=== PATIENT | female | born 1970 | race Caucasian/White ===

== ENCOUNTER 2017-08-12 09:56 | Emergency (ER) | payer BC ==
[2017-08-12 11:29] LABS: #Basophils 0.1 thou/uL (0.0-0.2); #Eosinphils 0.5 thou/uL (0.0-0.7); #Lymphocytes 4.3 thou/uL (1.20-3.40); #Monocytes 1.5 thou/uL (0.11-0.59); #Neutrophils 13.3 thou/uL (1.40-6.50); %Basophils 0.7 % (0.0-1.0); %Eosinophils 2.7 % (0.0-10.0); %Lymphocytes 21.9 % (21.0-51.0); %Monocytes 7.4 % (0.0-10.0); Hematocrit 46.2 % (36.0-47.0); Mean Platelet Volume 7.1 fL (7.4-10.4); White Blood Cell (WBC) Count 19.7 thou/uL (4.8-10.8)
[2017-08-12 11:49] LABS: ALT (SGPT) 13 U/L (8-55); AST (SGOT) 16 U/L (5-34); Alkaline Phosphatase 71 U/L (40-150); Anion Gap 13 mmol/L (10-20); BUN (Urea Nitrogen) 15 mg/dL (7.0-18.7); Bilirubin, Total 0.2 mg/dL (0.2-1.2); Calc. Creatinine Clearance 0 mL/min (70-130); Calcium 9.7 mg/dL (7.8-10.44); Carbon Dioxide 23 mmol/L (22-29); Chloride 104 mmol/L (98-107); Estimated GFR-MDRD Greater than 90; Globulin 3.8 g/dL (2.4-3.5); Protein, Total 7.6 g/dL (6.0-8.3)
[2017-08-12 11:51] LABS: Bilirubin Negative (Negative); Blood, Urine Negative (Negative); Glucose, Urine (Dipstick) Negative (Negative); Ketone, Urine Negative (Negative); Nitrite Negative (Negative); Protein, Urine (Dipstick) Negative (Neg-Trace); Urobilinogen 0.2 mg/dL (0.2-1.0)
[2017-08-12] MEDS ORDERED: Ondansetron HCl/PF 4 MG/2 ML Vial ONE (12:00)
[2017-08-12] MEDS ORDERED: Fentanyl 100 MCG/2 ML VIAL ONE (12:00)
[2017-08-12] MEDS ORDERED: diphenhydrAMINE HCl 50 MG/ML 1 ML VIAL ONE (12:18)
--- NOTE | 2017-08-12 13:03 | CT ---
CT OF THE ABDOMEN AND PELVIS WITH IV CONTRAST: Date: 08/12/17 INDICATION: Abdominal pain and pelvic pain. FINDINGS: There is some subsegmental atelectasis within the right middle lobe. There is mild fatty infiltration of the liver. The pancreas, spleen, and adrenal glands are normal appearing. The kidneys are normal appearing. No free fluid or enlarged lymph nodes are evident. There is a mild amount of retained stool within the colon. There is a mild to moderate amount of eleazar e fluid in the pelvis. There is scattered diverticula involving the colon without evidence of active diverticulitis. The visualized bladder is unremarkable. There is scattered degenerative and osteoarthritic change. There is diffuse osteopenia. No definite acute osseous abnormality is evident. IMPRESSION: 1. Nonspecific mild to moderate free fluid within the pelvis. 2. Colonic diverticulosis without evidence of active diverticulitis. 3. Fatty infiltration of the liver. POS: [facility]
[2017-08-12] MEDS ORDERED: ISOVUE-370 76%-LOCM 1 ML ONE (14:17)
[2017-08-12] MEDS ORDERED: Ketorolac Tromethamine 30 MG/ML VIAL ONE (14:19)
== END 2017-08-12 14:35 | disposition home or self-care (01) ==
LOC: ERS 09:56
DX: D72.829 Elevated white blood cell count, unspecified (principal); J44.9 Chronic obstructive pulmonary disease, unspecified; F41.9 Anxiety disorder, unspecified; F32.9 Major depressive disorder, single episode, unspecified; F17.210 Nicotine dependence, cigarettes, uncomplicated
CPT/HCPCS: 36415; 74177; 80053; 81003; 85025; 96361; 96374; 96375; J1170; J1200; J1885; J2405; J3010

== ENCOUNTER 2017-09-02 15:58 | Emergency (ER) | payer BC, OTHER ==
[2017-09-02] MEDS ORDERED: Lorazepam 2 MG/ML VIAL ONE ×2 (16:31→16:40)
[2017-09-02 16:34] LABS: Oxyhemoglobin 92.4 % (94.0-97.0); Sodium 143 mmol/L (135-148)
[2017-09-02 16:39] LABS: Modified Allen's Test POSITIVE; Vent NO
[2017-09-02 16:40] LABS: Mode NC
[2017-09-02 17:18] LABS: #Basophils 0.1 thou/uL (0.0-0.2); #Eosinphils 0.6 thou/uL (0.0-0.7); #Lymphocytes 4.7 thou/uL (1.20-3.40); #Monocytes 1.2 thou/uL (0.11-0.59); #Neutrophils 4.7 thou/uL (1.40-6.50); %Basophils 1.1 % (0.0-1.0); %Eosinophils 5.5 % (0.0-10.0); %Lymphocytes 41.4 % (21.0-51.0); %Monocytes 10.6 % (0.0-10.0); Red Blood Cell (RBC) Count 5.26 mill/uL (4.20-5.40); White Blood Cell (WBC) Count 11.4 thou/uL (4.8-10.8)
[2017-09-02 17:46] LABS: ALT (SGPT) 11 U/L (8-55); AST (SGOT) 17 U/L (5-34); Alkaline Phosphatase 78 U/L (40-150); Anion Gap 13 mmol/L (10-20); BUN (Urea Nitrogen) 15 mg/dL (7.0-18.7); Bilirubin, Total 0.7 mg/dL (0.2-1.2); Calc. Creatinine Clearance 0 mL/min (70-130); Calcium 9.6 mg/dL (7.8-10.44); Carbon Dioxide 26 mmol/L (22-29); Chloride 104 mmol/L (98-107); Estimated GFR-MDRD 85; Protein, Total 8.1 g/dL (6.0-8.3)
[2017-09-02 17:47] LABS: Acetaminophen Less than 6.0 mcg/mL (10.0-30.0); Salicylate Less than 8.0 mg/dL (15.0-30.0)
[2017-09-02 19:22] LABS: Bilirubin Negative (Negative); Blood, Urine Negative (Negative); Glucose, Urine (Dipstick) Negative (Negative); Ketone, Urine Negative (Negative); Nitrite Negative (Negative); Protein, Urine (Dipstick) Negative (Neg-Trace); Urobilinogen 0.2 mg/dL (0.2-1.0)
[2017-09-02 19:36] LABS: Amphetamine Not Detected (NotDetected); Methadone Not Detected (NotDetected); Methamphetamine Not Detected (NotDetected)
--- NOTE | 2017-09-02 20:12 | RAD ---
PORTABLE CHEST ONE VIEW: 09/02/17 at 5:46 p.m. HISTORY: Shortness of breath and dyspnea. FINDINGS: Comparison made with the exam of 07/07/17. The heart size is normal. The lungs are expanded without focal areas of consolidation, pneumothorax, vivian pulmonary edema or pleural effusions. IMPRESSION: No radiographic evidence of acute cardiopulmonary process. POS: [facility]
[2017-09-02] MEDS ORDERED: methylPREDNISolone Sod Succ/PF 125 MG/2 ML VIAL ONE (21:49)
== END 2017-09-02 22:15 | disposition home or self-care (01) ==
LOC: ERS 15:58
DX: J38.3 Other diseases of vocal cords (principal); F43.9 Reaction to severe stress, unspecified; R07.9 Chest pain, unspecified; J44.9 Chronic obstructive pulmonary disease, unspecified; F32.9 Major depressive disorder, single episode, unspecified; F41.9 Anxiety disorder, unspecified; F17.210 Nicotine dependence, cigarettes, uncomplicated; Z79.899 Other long term (current) drug therapy
CPT/HCPCS: 71010; 80053; 80306; 80307; 81003; 82805; 84443; 85025; 93005; 94640; 96361; 96374; 96375; J2060; J2930

== ENCOUNTER 2017-09-07 03:31 | Inpatient (IN) | payer BC ==
[2017-09-07 03:55] LABS: #Basophils 0.1 thou/uL (0.0-0.2); #Eosinphils 0.1 thou/uL (0.0-0.7); #Lymphocytes 4.2 thou/uL (1.20-3.40); #Monocytes 0.9 thou/uL (0.11-0.59); #Neutrophils 8.1 thou/uL (1.40-6.50); %Basophils 0.9 % (0.0-1.0); %Eosinophils 0.9 % (0.0-10.0); %Monocytes 6.7 % (0.0-10.0); Mean Platelet Volume 7.4 fL (7.4-10.4); Red Blood Cell (RBC) Count 4.83 mill/uL (4.20-5.40); White Blood Cell (WBC) Count 13.4 thou/uL (4.8-10.8)
[2017-09-07 04:09] LABS: Lactic Acid - Sepsis 0.8 mmol/L (0.5-2.2)
[2017-09-07 04:15] LABS: ALT (SGPT) 24 U/L (8-55); AST (SGOT) 29 U/L (5-34); Alkaline Phosphatase 73 U/L (40-150); Anion Gap 11 mmol/L (10-20); BUN (Urea Nitrogen) 20 mg/dL (7.0-18.7); Bilirubin, Total 0.3 mg/dL (0.2-1.2); Calc. Creatinine Clearance 0 mL/min (70-130); Calcium 9.1 mg/dL (7.8-10.44); Carbon Dioxide 26 mmol/L (22-29); Chloride 104 mmol/L (98-107); Estimated GFR-MDRD 81; Globulin 3.4 g/dL (2.4-3.5); Magnesium 1.9 mg/dL (1.6-2.6); Protein, Total 7.3 g/dL (6.0-8.3)
[2017-09-07 04:18] LABS: Troponin I Less than 0.010 ng/mL (< 0.028)
[2017-09-07] MEDS ORDERED: Acetaminophen 325 MG Suppository PR PRN (04:28)
[2017-09-07] MEDS ORDERED: Milk Of Magnesia 30 ML UDCUP PO PRN (04:28)
[2017-09-07] MEDS ORDERED: CCU Electrolyte Replacement 1 EACH IVPB ONE (04:28)
[2017-09-07] MEDS ORDERED: Acetaminophen 325 MG/10.15 ML UDCUP PO PRN (04:28)
[2017-09-07] MEDS ORDERED: Bisacodyl 10 MG SUPP PR PRN (04:28)
[2017-09-07] MEDS ORDERED: Ondansetron HCl/PF 4 MG/2 ML Vial IVP PRN (04:28)
[2017-09-07] MEDS ORDERED: Sedation Protocol FS ONE (04:28)
[2017-09-07] MEDS ORDERED: Lacri-Lube Opth Oint 3.5 GM TUBE EA EYE PRN (04:28)
[2017-09-07] MEDS ORDERED: Mag-Al 1200 mg/1200 mg/30 ML UDCUP PO PRN (04:28)
[2017-09-07] MEDS ORDERED: Potassium Phosphate 9 MMOL in Sodium Chloride 0.9% 100 ML IVPB PRN (04:38)
[2017-09-07] MEDS ORDERED: Potassium Phosphate 12 MMOL in Sodium Chloride 0.9% 250 ML 250 ML IV PRN (04:38)
[2017-09-07] MEDS ORDERED: CCU ELECTROLYTE REPLACEMENT PROTOCOL FS PRN (04:38)
[2017-09-07] MEDS ORDERED: Potassium Phosphate 15 MMOL in Sodium Chloride 0.9% 250 ML 250 ML IV PRN (04:38)
[2017-09-07] MEDS ORDERED: Potassium Chloride 20 MEQ TAB PO PRN (04:38)
[2017-09-07] MEDS ORDERED: Potassium Chloride 40 MEQ in Sodium Chloride 0.9% 250 ML 250 ML IVPB PRN (04:38)
[2017-09-07] MEDS ORDERED: DISCONTINUE PREVIOUS NARCOTIC PAIN MEDICATIONS AND BENZODIAZEPINES FS SCH (04:38)
[2017-09-07] MEDS ORDERED: Magnesium 2 GM/NS 0.9% 100 ML 2 GM in Premix Bag 1 BAG IVPB PRN (04:38)
[2017-09-07] MEDS ORDERED: Propofol 1,000 MG/100 ML VIAL IV PRN (04:38)
[2017-09-07] MEDS ORDERED: Magnesium Oxide 400 MG TAB PO PRN ×2 (04:38)
[2017-09-07] MEDS ORDERED: Fentanyl 20 MCG/ML 250 ML IVPB SCH (04:38)
[2017-09-07] MEDS ORDERED: Lorazepam 2 MG/ML VIAL SLOW IVP PRN (04:38)
[2017-09-07] MEDS ORDERED: Potassium Chloride 40 MEQ in Premix Bag 1 BAG IVPB PRN (04:38)
[2017-09-07] MEDS ORDERED: methylPREDNISolone Sod Succ/PF 125 MG/2 ML VIAL ONE (04:45)
[2017-09-07] MEDS ORDERED: Water For Inject, Bacteriostat 30 ML ONE (04:45)
[2017-09-07] MEDS ORDERED: Fentanyl 20 MCG/ML 250 ML ONE (04:51)
[2017-09-07 05:07] LABS: Oxyhemoglobin 96.8 % (94.0-97.0); Sodium 138 mmol/L (135-148)
[2017-09-07 05:08] LABS: Mechanical Tidal Volume 400 ml; Mode VC; Modified Allen's Test POSITIVE; Vent YES
--- NOTE | 2017-09-07 05:53 | HP ---
DATE OF ADMISSION: 09/07/2017 PRIMARY CARE PHYSICIAN: Dr. Hurst. PRIMARY TEST AND TURN UP TECHNICIAN: Dr. Grey. CHIEF COMPLAINT: Acute respiratory failure and unresponsiveness. HISTORY OF PRESENT ILLNESS: Ms. Rodriguez is a 47-year-old female with past medical history of vocal cord paralysis and COPD with questionable psychogenic dyspnea with multiple hospitalizations requiri ng intubations for the same reason, who was brought in with the above-mentioned complaints. History is mainly obtained by discussion with the ER physician and by her at the bedside. The jelly ent is currently intubated and agitated and is unable to provide any history. She was last admitted to our facility in 05/2017 for complaints of dyspnea and was admitted and treated for acute COPD ex acerbation. 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 She was found slumped on the floor by a hotel staff and 911 was called. The patient was found rather unresponsive by the EMS and got promptly intubated with ketamine and paralytics. She was brought into the emergency jayna m. Her initial workup showed mild leukocytosis with WBCs at 13.4. Her D-dimer is negative and rest of her serum chemistries are unremarkable. Chest x-ray does not show any infiltrate or edema. A p reliminary diagnosis of COPD exacerbation has been made and she is being admitted to CCU in an intub ated state. Please note that the patient has had multiple hospitalizations with the same diagnosis. PAST MEDICAL HISTORY: 1. Asthma/COPD. 2. History of left upper lobe cavitary lesion with outpatient CT scan followups. 3. History of vocal cord dysfunction. 4. Anxiety. 5. Tobacco abuse. 6. Fibromyalgia. 7. Restless leg syndrome. PSYCHIATRIC HISTORY: Anxiety, depression, panic disorder. PAST SURGICAL HISTORY: Appendectomy, hysterectomy, tonsillectomy, ulnar nerve surgery, neck surgery . ALLERGIES: PENICILLIN, LEVAQUIN, HALDOL, DOXYCYCLINE. SOCIAL HISTORY: Currently , her is at the bedside. 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 She has had multiple jobs in the past. She smokes half to 1 pack of cigar ettes on a daily basis. No history of drug or alcohol abuse. There is some question of her signifi cant bleach to induce wheezing in order to get hospitalized. There is nothing to corroborate or rev iew this. FAMILY HISTORY: No significant family history of premature coronary artery disease, stroke or cance r. CURRENT MEDICATIONS: As per the most recent ER record, she is on following medications, but these n eed to be further corroborated with the patient. 1. Pramipexole 0.5 mg 4 tablets at bedtime. 2. Olanzapine 5 mg daily. 3. Estradiol 2 mg daily. 4. Mirtazapine 15 mg daily. 5. Clonazepam 1 mg unknown dosage. 6. Montelukast 10 mg daily. 7. Duloxetine 60 mg once a day. REVIEW OF SYSTEM: It is unobtainable due to patient's intubation and agitated state. LABORATORY DATA: CBC shows WBCs 13.4, hemoglobin 14.6, neutrophils 60%, platelets 288. D-dimer les s than 0.27. Serum chemistry is unremarkable. Blood sugar 143, lactic acid 0.8. Cardiac enzymes n ormal. Beta-hCG 1.65. Chest x-ray by my review, has no evidence of effusion, edema, or infiltrate. CT scan of the brain is unremarkable for any acute hemorrhage or infarction per my review. CT sca n of the cervical spine results are pending at this time. PHYSICAL EXAMINATION: VITAL SIGNS: Stable. She is afebrile, saturating 100% on ventilator. Heart rate is in the 80s, bl ood pressure 140/60. GENERAL: She is very agitated and moving all around and biting tube as she is off of sedation at th is time. She opens her eyes on verbal stimulation. Otherwise, does not follow any commands. HEENT: Mucous membrane is moist and pink. No oropharyngeal exudate or erythema. Head is normoceph alic, atraumatic. Pupils equal, reactive to light. CHEST: Clear to auscultation without any wheezing, rales, or rhonchi. Rate and rhythm is regular w ithout any murmur, rubs, or gallops. ABDOMEN: Soft, nontender, nondistended. Positive bowel sounds. EXTREMITIES: Free of any cyanosis, clubbing, or edema. NEUROLOGIC: Shows agitation and she is moving all 4 extremities freely. Otherwise, limited examina tion due to agitation and intubated state. VASCULAR: +2 pedal pulses felt bilaterally. IMPRESSION AND PLAN: 1. Acute respiratory failure. This is likely secondary to acute chronic obstructive pulmonary dise ase/asthma exacerbation given her history of vocal cord paralysis. At this time, she will be admitt ed to the critical care unit on ventilator. We will consult Pulmonary medicine in the morning and c ontinue with intravenous steroids, nebulizers, oxygen, and ventilator support for now. Symptomatic and supportive care will be provided. Ventilator weaning as per Pulmonary doctors. We will also ad d Dulera and Mucinex in the liquid form. We will sedate her for now as she is at risk of self-extub ation. She will be monitored in the CCU 2. History of asthma and chronic obstructive pulmonary disease as above. Continue nebs and steroid s and add Dulera. 3. Leukocytosis, likely stress induced. No signs and symptoms to suggest infection. We will mary nue to monitor. 4. Fibromyalgia. 5. Chronic tobacco abuse disorder. 6. Restless leg syndrome. 7. Deep venous thrombosis and gastrointestinal prophylaxis. 8. Code status: Presumed FULL CODE as the patient is already intubated. is the surrogate decision maker. DISPOSITION: Based on the clinical course. She was stay at least 2-3 midnights. Further managemen t will depend upon her clinical course.
[2017-09-07 06:46] LABS: Bilirubin Negative (Negative); Blood, Urine Negative (Negative); Glucose, Urine (Dipstick) Negative (Negative); Ketone, Urine Negative (Negative); Nitrite Negative (Negative); Protein, Urine (Dipstick) Trace mg/dL (Neg-Trace); Urobilinogen 0.2 mg/dL (0.2-1.0)
[2017-09-07] MEDS: Famotidine/PF 20 mg/2ml Vial SLOW IVP SCH ×2 (08:44→20:04)
[2017-09-07 08:50] LABS: Sodium 140 mmol/L (135-148)
[2017-09-07 08:51] LABS: Mechanical Tidal Volume 400 ml; Mode SIMV/PSV; Modified Allen's Test NOT DONE; Pressure Support 10 cmH2O; Vent YES
--- NOTE | 2017-09-07 09:36 | RAD ---
CHEST 1 VIEW: HISTORY: Wheezing. Calmed down. Intubated. COMPARISON: Chest 1 view 09/02/17. FINDINGS: Endotracheal tube tip in good position at the level of the clavicles. Lungs are relatively well aer ated. ACDF is present. Cardiac silhouette and mediastinal contours within normal limits. IMPRESSION: Endotracheal tube tip at the level of the clavicles. POS: [facility]
[2017-09-07] MEDS ORDERED: DC Sedation Protocol FS ONE (10:44)
--- NOTE | 2017-09-07 11:11 | CT ---
PRELIMINARY REPORT/[facility]/EMERGENCY AFTER HOURS PROCEDURE: EXAM: CT Cervical Spine Without Intravenous Contrast EXAM DATE/TIME: Exam ordered 09/07/2017 4:30 AM CLINICAL HISTORY: 47 years old, female; Injury or trauma; Injury Possible fall; Initial encounter; Unconscious; Patien t HX: F47 presents to ed S/P unresponsive and intubated. Ems reports pt was unresponsive and on the ground when they arrived. Pt's coworker said that pt reported she was having trouble breathing. Pt' s coworker reports since pt had neck surgery a few years ago she has had similar events where her vo tim cords close up. Ems reports labored breathing and blood sugar of 90. 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 TECHNIQUE: Axial computed tomography images of the cervical spine without intravenous contrast. Coronal reformatted images were created and reviewed. COMPARISON: No relevant prior studies available. FINDINGS: Vertebrae: No fracture. Discs/spinal canal/neural foramina: Anterior fusion hardware spanning C5-C7. No spinal canal stenosi s. Soft tissues: Unremarkable. Lung apices: Unremarkable as visualized. IMPRESSION: No fracture. Thank you for allowing us to participate in the care of your patient. Dictated and Authenticated by: Justo Hernandez MD 09/07/2017 4:52 AM Central Time ([place] \T\ [place]) FINAL REPORT CT CERVICAL SPINE WITHOUT CONTRAST: HISTORY: Found down. Intubated. FINDINGS/IMPRESSION: Findings and impression are concordant with the preliminary report. POS: [facility]
--- NOTE | 2017-09-07 11:12 | CT ---
PRELIMINARY REPORT/[facility]/EMERGENCY AFTER HOURS PROCEDURE: EXAM: CT Head Without Intravenous Contrast EXAM DATE/TIME: Exam ordered 09/07/2017 4:32 AM CLINICAL HISTORY: 47 years old, female; Signs and symptoms; Altered mental status/memory loss and other: Unresposive; Confusion or disorientation; Patient HX: F47 presents to ed S/P unresponsive and intubated. Ems repo rts pt was unresponsive and on the ground when they arrived. Pt's coworker said that pt reported she was having trouble breathing. Pt's coworker reports since pt had neck surgery a few years ago she has had similar events where her vocal cords close up. Ems reports labored breath ing and blood sugar of 90. 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 TECHNIQUE: Axial computed tomography images of the head/brain without intravenous contrast. COMPARISON: No relevant prior studies available. FINDINGS: Brain: Unremarkable. No hemorrhage. No significant white matter disease. No edema. Ventricles: Unremarkable. No ventriculomegaly. Bones/joints: Unremarkable. No acute fracture. Soft tissues: Unremarkable. Sinuses: Partial opacification of the right maxillary sinus with mucosal thickening, bubbly secretio ns, and dependent fluid level, compatible with sinusitis. Mastoid air cells: Unremarkable as visualized. No mastoid effusion. IMPRESSION: 1. Right maxillary sinusitis. 2. No acute brain findings. Thank you for allowing us to participate in the care of your patient. Dictated and Authenticated by: Justo Hernandez MD 09/07/2017 4:50 AM Central Time ([place] \T\ [place]) FINAL REPORT CT BRAIN WITHOUT CONTRAST: History Found down, intubated. Trouble breathing. COMPARISON: CT brain 02/20/17. FINDINGS/IMPRESSION: Findings and impression are concordant with the preliminary report. POS: [facility]
--- NOTE | 2017-09-07 11:23 | PDOC.PN ---
- Subjective Encounter Start Date: 09/07/17 Encounter Start Time: 11:00 Subjective: Feels tired..s/p extubation. - Objective Vital Signs & Weight: Vital Signs (12 hours) Temp Pulse Resp BP Pulse Ox 09/07/17 11:12 100 09/07/17 11:11 68 17 100 09/07/17 10:40 67 17 100 09/07/17 10:00 20 09/07/17 08:00 97.9 F 20 09/07/17 07:54 97.9 F 67 20 100 09/07/17 07:35 67 20 100 09/07/17 06:11 72 88/50 L 94 L 09/07/17 06:00 20 Most Recent Monitor Data Heart Rate from ECG 68 NIBP 101/56 NIBP BP-Mean 72 Respiration from ECG 15 SpO2 100 I&O: 09/06/17 09/07/17 09/08/17 06:59 06:59 06:59 Output Total 330 90 Balance -330 -90 Result Diagrams: 09/07/17 03:34 09/07/17 03:34 Phys Exam - Physical Examination HEENT: sclera anicteric Neck: no JVD Respiratory: clear to auscultation bilateral Cardiovascular: RRR Gastrointestinal: soft, non-tender Musculoskeletal: no edema Neurological: moves all 4 limbs Dx/Plan (1) Respiratory failure Code(s): J96.90 - RESPIRATORY FAILURE, UNSP, UNSP W HYPOXIA OR HYPERCAPNIA Status: Acute Plan: s/p extubation Comment: f/u with pulmonary.. (2) Vocal cord dysfunction Code(s): J38.3 - OTHER DISEASES OF VOCAL CORDS Status: Acute Comment: by history.. - Plan -: Transfer to medical floor when ok with civil drafter. * .
--- NOTE | 2017-09-07 14:50 | CON ---
DATE OF SERVICE: 09/07/2017 SUBJECTIVE: A 47-year-old female was intubated in the field. I spoke to the who is at the bedside. He states that the patient was at work, when his sister found in the room unresponsive. P aramedics were called and she was intubated. She has had multiple intubations 7 times as per the . She sees Dr. Grey in her office for pulmonary issues, apparently just seen recently in April. She carries diagnoses of; 1. Ongoing tobacco abuse. 2. Asthma, chronic obstructive pulmonary disease. 3. Vocal cord dysfunction. 4. Fibromyalgia. 5. Restless leg syndrome. PREVIOUS SURGERIES: Include hysterectomy, tonsils, ulnar nerve and neck surgery. MEDICATIONS: Her list of medicines was well outlined, which has included clonazepam 1 mg, Cymbalta 60, melatonin 5, Vivarin 200, estradiol 2, mirtazapine 15, pramipexole 0.5 four tablets at nighttime , Proventil inhaler, Singulair and olanzapine 5 mg at bedtime. ALLERGIES: PENICILLIN, LEVAQUIN, HALDOL and DOXYCYCLINE. REVIEW OF SYSTEMS: Unremarkable. OBJECTIVE: GENERAL: On the vent, she is awake, alert and responsive. VITAL SIGNS: Sats are 98%, pulse 73, respirations 18 and blood pressure 120/80. CHEST: Occasional wheeze. CARDIAC: Normal S1 and S2. No gallops. ABDOMEN: Soft. No masses. LABORATORY DATA: X-ray was normal. White count 13,000, hemoglobin and hematocrit 14 and 45, platel et count is 288. PO2 is 59, pCO2 47.33, rate of 20, 40%. Electrolytes are normal. IMPRESSION: 1. Status post respiratory failure with multiple intubations, at least 7. 2. Vocal cord dysfunction. 3. Chronic obstructive pulmonary disease. 4. Tobacco abuse. 5. Major anxiety. 6. Restless leg syndrome. 7. Fibromyalgia. 8. Neck surgery. PLAN: She will be weaned and extubated slowly. It was told to her and her that she needs t o refrain from smoking. I will notify Dr. Grey on Saturday. Observe in the ICU. Forty-Five minutes critical care time.
[2017-09-07] MEDS: Pramipexole Di-HCl 1 MG TAB PO SCH (20:04)
[2017-09-07] MEDS: clonazePAM 1 MG TAB PO SCH (20:04)
[2017-09-08 04:59] LABS: Anion Gap 11 mmol/L (10-20); BUN (Urea Nitrogen) 13 mg/dL (7.0-18.7); Calc. Creatinine Clearance 105 mL/min (70-130); Calcium 9.4 mg/dL (7.8-10.44); Carbon Dioxide 29 mmol/L (22-29); Chloride 102 mmol/L (98-107); Estimated GFR-MDRD Greater than 90
[2017-09-08 05:27] LABS: Band 4 % (5-11); Mean Platelet Volume 8.2 fL (7.4-10.4); Metamyelocyte 1 % (0-0); Neutrophil 83 % (42-75); Reactive Lymphocytes 2 % (0-10); Red Blood Cell (RBC) Count 4.13 mill/uL (4.20-5.40); White Blood Cell (WBC) Count 15.9 thou/uL (4.8-10.8)
[2017-09-08] MEDS: Famotidine/PF 20 mg/2ml Vial SLOW IVP SCH (08:39)
[2017-09-08] MEDS: clonazePAM 1 MG TAB PO SCH ×2 (08:39→20:12)
[2017-09-08] MEDS: Estradiol 1 MG TAB PO SCH (08:48)
--- NOTE | 2017-09-08 11:13 | PDOC.PN ---
- Subjective Encounter Start Date: 09/08/17 Encounter Start Time: 10:55 Subjective: No specific complaint. - Objective MAR Reviewed: Yes Vital Signs & Weight: Vital Signs (12 hours) Temp Pulse Resp BP Pulse Ox 09/08/17 09:45 97.7 F 86 18 105/64 96 09/08/17 08:00 98.3 F 09/08/17 07:52 98.3 F 78 18 96 09/08/17 07:00 98.3 F 09/08/17 06:28 100 09/08/17 06:26 70 16 100 09/08/17 03:00 98.8 F Weight Admit Weight 145 lb 8.08 oz Weight 144 lb 13.499 oz Most Recent Monitor Data Heart Rate from ECG 85 NIBP 107/64 NIBP BP-Mean 80 Respiration from ECG 22 SpO2 98 I&O: 09/07/17 09/08/17 09/09/17 06:59 06:59 06:59 Intake Total 1295 320 Output Total 330 1405 240 Balance -330 -110 80 Result Diagrams: 09/08/17 03:47 09/08/17 03:47 Phys Exam - Physical Examination Constitutional: NAD HEENT: sclera anicteric Neck: no JVD Respiratory: clear to auscultation bilateral Cardiovascular: RRR Gastrointestinal: soft, non-tender, no distention, positive bowel sounds Musculoskeletal: no edema Neurological: moves all 4 limbs Psychiatric: A&O x 3 (Flat affect..) Dx/Plan (1) Respiratory failure Code(s): J96.90 - RESPIRATORY FAILURE, UNSP, UNSP W HYPOXIA OR HYPERCAPNIA Status: Resolved Plan: Home tomorrow, per pulmonary (2) Vocal cord dysfunction Code(s): J38.3 - OTHER DISEASES OF VOCAL CORDS Status: Acute Comment: by history.. (3) Elevated blood sugar level Code(s): R73.9 - HYPERGLYCEMIA, UNSPECIFIED Status: Acute Comment: most likely due to steroids. (4) COPD (chronic obstructive pulmonary disease) Status: Acute (5) COPD exacerbation Code(s): J44.1 - CHRONIC OBSTRUCTIVE PULMONARY DISEASE W (ACUTE) EXACERBATION Status: Chronic - Plan -: Home tomorrow. * .
--- NOTE | 2017-09-08 17:21 | PRG ---
DATE OF SERVICE: 09/08/2017 SUBJECTIVE: This morning, awake, alert, responsive. She wants to leave the ICU. PHYSICAL EXAMINATION: VITAL SIGNS: Blood pressure 107/70, sats are 98%, respirations 18. CHEST: Minimal wheezing. CARDIAC: Normal S1, S2. No gallops. ABDOMEN: Soft. No masses. LABORATORY DATA: White count 15,000, H\T\H 12 and 39, platelet count normal. Electrolytes are norm al. IMPRESSION: Repeated multiple admissions with respiratory failure, vocal cord dysfunction, fibromya lgia, restless leg, tobacco abuse. PLAN: P.o. prednisone, transfer out of ICU, [place], supportive care. Home in the next 24-48 hours.
[2017-09-08] MEDS: Pramipexole Di-HCl 1 MG TAB PO SCH (20:13)
[2017-09-08] MEDS: Famotidine 20 MG TAB PO SCH (20:13)
[2017-09-09 05:07] LABS: Anion Gap 8 mmol/L (10-20); BUN (Urea Nitrogen) 19 mg/dL (7.0-18.7); Calc. Creatinine Clearance 101 mL/min (70-130); Calcium 8.9 mg/dL (7.8-10.44); Carbon Dioxide 32 mmol/L (22-29); Chloride 103 mmol/L (98-107); Estimated GFR-MDRD 88
[2017-09-09 05:16] LABS: Hematocrit 40.5 % (36.0-47.0); Mean Platelet Volume 7.9 fL (7.4-10.4); Neutrophil 51 % (42-75); Red Blood Cell (RBC) Count 4.29 mill/uL (4.20-5.40); White Blood Cell (WBC) Count 15.5 thou/uL (4.8-10.8)
[2017-09-09] MEDS: predniSONE 20 MG TAB PO SCH (08:20)
[2017-09-09] MEDS: Famotidine 20 MG TAB PO SCH ×2 (08:20→21:02)
[2017-09-09] MEDS: clonazePAM 1 MG TAB PO SCH ×2 (08:21→21:02)
[2017-09-09] MEDS: Estradiol 1 MG TAB PO SCH (08:21)
--- NOTE | 2017-09-09 09:12 | PRG ---
DATE OF SERVICE: 09/09/2017 SUBJECTIVE: She is breathing better. She still complains of weakness. OBJECTIVE: VITAL SIGNS: Temperature 97.9, pulse 87, respirations 16, O2 sat 94%, blood pressure 125/74. HEENT: Unremarkable. NECK: No JVD. LUNGS: She has diffuse bilateral expiratory wheezing. CARDIAC: S1 and S2 regular. ABDOMEN: Soft. EXTREMITIES: No edema. LABORATORY DATA: White blood cell count 15, hematocrit 40, platelet count 234. Sodium 139, potassi um 4.1, chloride 103, CO2 of 32, BUN 19, creatinine 0.7, glucose 83. ASSESSMENT: 1. Chronic obstructive pulmonary disease with exacerbation. 2. History of vocal cord dysfunction. 3. Status post acute respiratory failure. PLAN: It is always difficult to tell with Ms. Rodriguez in terms of what we are dealing with. At [facility], it seems like this is all due to chronic obstructive pulmonary disease and other times it seems that is due to vocal cord dysfunction. She definitely has expiratory wheezing right now, so I think she needs to continue nebulization treatments and steroids. Hopefully, she can go home in a day or two. She needs to continue follow up with psychiatry. I have told that she needs to quit smoking. She is in the process of applying for disability.
[2017-09-09] MEDS: Nicotine 21 MG PATCH TD SCH (11:37)
[2017-09-09] MEDS: Pramipexole Di-HCl 1 MG TAB PO SCH (21:02)
[2017-09-10 05:22] LABS: Anion Gap 11 mmol/L (10-20); BUN (Urea Nitrogen) 15 mg/dL (7.0-18.7); Calc. Creatinine Clearance 117 mL/min (70-130); Calcium 8.6 mg/dL (7.8-10.44); Carbon Dioxide 27 mmol/L (22-29); Chloride 103 mmol/L (98-107); Estimated GFR-MDRD Greater than 90
[2017-09-10 05:49] LABS: Hematocrit 42.2 % (36.0-47.0); Mean Platelet Volume 7.9 fL (7.4-10.4); Neutrophil 51 % (42-75); Reactive Lymphocytes 2 % (0-10); Red Blood Cell (RBC) Count 4.58 mill/uL (4.20-5.40); White Blood Cell (WBC) Count 16.2 thou/uL (4.8-10.8)
--- NOTE | 2017-09-10 08:44 | PRG ---
DATE OF SERVICE: 09/10/2017 Ms. Rodriguez remains tearful. She wants to discuss the same things over and over again. PHYSICAL EXAMINATION: VITAL SIGNS: Temperature is 97.3, pulse 80, respirations 16, 98%, blood pressure 97/61. HEENT: Unremarkable. NECK: No JVD. LUNGS: Expiratory wheezing bilaterally. CARDIOVASCULAR: S1 and S2 regular. ABDOMEN: Soft. EXTREMITIES: No edema. LABORATORY DATA: White blood cell count 16, hematocrit 42, platelet count 233. Sodium 137, potassi um 4.1, chloride 103, CO2 of 27, BUN 15, creatinine 0.6, glucose 81. ASSESSMENT: 1. Chronic obstructive pulmonary disease/asthma with exacerbation. 2. Vocal cord dysfunction. PLAN: 1. Repeat bedside PFT today. 2. Change back to IV steroids. 3. Discontinue daily labs. 4. The patient would greatly benefit from psychiatric consultation if available.
[2017-09-10] MEDS: Estradiol 1 MG TAB PO SCH (08:47)
[2017-09-10] MEDS: clonazePAM 1 MG TAB PO SCH ×2 (08:47→21:19)
[2017-09-10] MEDS: Famotidine 20 MG TAB PO SCH ×2 (08:47→21:25)
[2017-09-10] MEDS: predniSONE 20 MG TAB PO SCH (08:49)
--- NOTE | 2017-09-10 09:48 | PDOC.PN ---
- Subjective Encounter Start Date: 09/10/17 Encounter Start Time: 09:47 Subjective: feels better .able to walk out of the room. -: improved wheezing - Objective MAR Reviewed: Yes Vital Signs & Weight: Vital Signs (12 hours) Temp Pulse Resp BP Pulse Ox 09/10/17 06:48 98 09/10/17 06:47 80 16 98 09/10/17 01:39 96 09/10/17 00:00 97.3 F L 66 18 97/61 95 Weight Admit Weight 145 lb 8.08 oz Weight 154 lb 5.177 oz Most Recent Monitor Data Heart Rate from ECG 85 NIBP 107/64 NIBP BP-Mean 80 Respiration from ECG 22 SpO2 98 I&O: 09/09/17 09/10/17 09/11/17 06:59 06:59 06:59 Intake Total 810 Output Total 240 Balance 570 Result Diagrams: 09/10/17 03:27 09/10/17 03:27 Phys Exam - Physical Examination Constitutional: NAD HEENT: PERRLA, moist MMs, sclera anicteric, oral pharynx no lesions Neck: no nodes, no JVD, supple, full ROM Respiratory: no wheezing, no rales, no rhonchi, clear to auscultation bilateral Cardiovascular: RRR, no significant murmur, no rub, gallop Gastrointestinal: soft, non-tender, no distention, positive bowel sounds Musculoskeletal: no edema, pulses present Neurological: non-focal, normal sensation, moves all 4 limbs Psychiatric: normal affect, A&O x 3 Skin: no rash Dx/Plan (1) Acute on chronic respiratory failure with hypoxia Code(s): J96.21 - ACUTE AND CHRONIC RESPIRATORY FAILURE WITH HYPOXIA Status: Resolved (2) COPD (chronic obstructive pulmonary disease) Status: Acute Qualifiers: COPD type: COPD with acute exacerbation Qualified Code(s): J44.1 - Chronic obstructive pulmonary disease with (acute) exacerbation (3) Vocal cord dysfunction Code(s): J38.3 - OTHER DISEASES OF VOCAL CORDS Status: Acute Comment: by history.. (4) Anxiety and depression Code(s): F41.9 - ANXIETY DISORDER, UNSPECIFIED; F32.9 - MAJOR DEPRESSIVE DISORDER, SINGLE EPISODE, UNSPECIFIED Status: Chronic (5) Fibromyalgia Status: Chronic (6) Restless leg syndrome Status: Chronic (7) Tobacco dependence Code(s): F17.200 - NICOTINE DEPENDENCE, UNSPECIFIED, UNCOMPLICATED Status: Chronic - Plan respiratory therapy, incentive spirometry, out of bed/ambulate, DVT proph w/SCDs Back on IV steroids and [place] nebs.O2 prn.not hypoxic any more -: add nicotine patch. -: add stool softner. -: am labs. -: DC when cleared by PCCM.Appreciate input.hemodynamically stable * . Review of Systems - Review of Systems Constitutional: negative: Fever, Chills, Sweats, Weakness, Malaise, Other Respiratory: Cough. negative: Dry, Shortness of Breath, Hemoptysis, SOB with Excertion, Pleuritic Pain, Sputum, Wheezing Cardiovascular: negative: Chest Pain, Palpitations, Orthopnea, Paroxysmal Noc. Dyspnea, Edema, Light Headedness, Other Gastrointestinal: negative: Nausea, Vomiting, Abdominal Pain, Diarrhea, Constipation, Melena, Hematochezia, Other Genitourinary: negative: Dysuria, Frequency, Incontinence, Hematuria, Retention , Other Musculoskeletal: negative: Neck Pain, Shoulder Pain, Arm Pain, Back Pain, Hand Pain, Leg Pain, Foot Pain, Other Neurological: negative: Weakness, Numbness, Incoordination, Change in Speech, Confusion, Seizures, Other - Medications/Allergies Allergies/Adverse Reactions: Allergies Allergy/AdvReac Type Severity Reaction Status Date / Time Penicillins Allergy Intermediate Hives Verified 05/31/17 17:24 doxycycline Allergy Hives Verified 05/31/17 17:24 haloperidol [From Haldol] Allergy Verified 05/31/17 17:24 levofloxacin [From Levaquin] Allergy Hives Verified 05/31/17 17:24 loratadine [From Claritin] Allergy Rash Verified 05/31/17 17:24 penicillin G Allergy Verified 05/31/17 17:24 Medications: Current Medications Acetaminophen (Tylenol) 650 mg MT Q6H PRN PRN Reason: Fever > 101 or Mild Pain Acetaminophen (Tylenol Elixir) 650 mg PO Q6H PRN PRN Reason: Fever > 101 or Mild Pain Al Hydroxide/Mg Hydroxide (Maalox) 30 ml PO Q8H PRN PRN Reason: Indigestion Albuterol/Ipratropium (Duoneb) 3 ml NEB Q6H PRN PRN Reason: SOB &/or Wheezing Albuterol/Ipratropium (Duoneb) 3 ml NEB [id number]-KO [facility] Bisacodyl (Dulcolax) 10 mg MT DAILYPRN PRN PRN Reason: Constipation Clonazepam (Klonopin) 1 mg PO BID [facility] Last Admin: 09/10/17 08:47 Dose: 1 mg Duloxetine HCl (Cymbalta) 60 mg PO DAILY [facility] Last Admin: 09/10/17 08:47 Dose: 60 mg Estradiol (Estrace) 2 mg PO DAILY [facility] Last Admin: 09/10/17 08:47 Dose: 2 mg Famotidine (Pepcid) 20 mg PO BID [facility] Last Admin: 09/10/17 08:47 Dose: 20 mg Potassium Chloride 40 meq/ (Sodium Chloride) 270 mls @ 135 mls/hr IVPB ASDIR PRN PRN Reason: FOR SERUM K+ 2.5 - 3.5 Potassium Chloride 40 meq/ (Device) 100 mls @ 50 mls/hr IVPB ASDIR PRN PRN Reason: FOR SERUM K+ 2.5 - 3.5 Magnesium Sulfate 1 gm/ Sodium (Chloride) 102 mls @ 102 mls/hr IV PRN PRN PRN Reason: MAG LEVEL 1.4 - 2.0 Magnesium Sulfate 2 gm/ Device 100 mls @ 100 mls/hr IVPB ASDIR PRN PRN Reason: MAGNESIUM < 1.4 Potassium Phosphate 9 mmol/ (Sodium Chloride) 103 mls @ 25.75 mls/hr IVPB ASDIR PRN PRN Reason: Phosphate 1.0-1.8 Potassium Phosphate 12 mmol/ (Sodium Chloride) 254 mls @ 63.5 mls/hr IV ASDIR PRN PRN Reason: Serum phosphate 0.5-0.9 Potassium Phosphate 15 mmol/ (Sodium Chloride) 255 mls @ 63.75 mls/hr IV ASDIR PRN PRN Reason: Serum Phos < 0.5 Magnesium Hydroxide (Milk Of Magnesium) 30 ml PO Q8H PRN PRN Reason: Constipation Magnesium Oxide (Magnesium Oxide) 400 mg PO BIDPRN PRN PRN Reason: FOR SERUM MAG 1.4 - 2.0 Magnesium Oxide (Magnesium Oxide) 800 mg PO PRN PRN PRN Reason: FOR SERUM MAG < 1.4 Methylprednisolone Sodium Succinate (Solu-Medrol) 20 mg IVP Q6HR [facility] Mineral Oil/White Petrolatum (Lacri-Lube Ointment) 0 gm EA EYE PRN PRN PRN Reason: Dry Eyes Miscellaneous Medication (Phos-Nak) 1 pkt PO TIDPRN PRN PRN Reason: FOR PHOS LEVEL 1.0 - 1.8 Miscellaneous Medication (Phos-Nak) 2 pkt PO TIDPRN PRN PRN Reason: FOR PHOS LEVEL 0.5 - 1.0 Nicotine (Nicoderm Patch) 21 mg TD Q24HR [facility] Last Admin: 09/09/17 11:37 Dose: 21 mg Ccu Electrolyte (Replacement Protocol) 0 each FS PRN PRN PRN Reason: FOR ELECTROLYTE REPLACEMENT Ondansetron HCl (Zofran) 4 mg IVP Q6H PRN PRN Reason: Nausea/Vomiting Last Admin: 09/07/17 08:44 Dose: 4 mg Potassium Chloride (K-Dur) 40 meq PO ASDIR PRN PRN Reason: FOR SERUM K+ 2.5 - 3.5 Potassium Chloride (Klor-Con) 40 meq PER TUBE ASDIR PRN PRN Reason: FOR SERUM K+ 2.5-3.5 Pramipexole Dihydrochloride (Mirapex) 2 mg PO HS [facility] Last Admin: 09/09/17 21:02 Dose: 2 mg Sodium Chloride (Flush - Normal Saline) 10 ml IVF Q12HR [facility] Last Admin: 09/10/17 08:47 Dose: 10 ml Sodium Chloride (Flush - Normal Saline) 10 ml IVF PRN PRN PRN Reason: Saline Flush
[2017-09-10] MEDS: Nicotine 21 MG PATCH TD SCH (11:23)
[2017-09-10 13:38] VITALS: BMI 24.1
[2017-09-10] MEDS: Senokot S 8.6-50 MG TAB PO SCH (21:19)
[2017-09-10] MEDS: Pramipexole Di-HCl 1 MG TAB PO SCH (21:19)
[2017-09-11 08:20] VITALS: BP 129/72; TEMP 98.6
[2017-09-11] MEDS: Famotidine 20 MG TAB PO SCH (09:10)
[2017-09-11] MEDS: Estradiol 1 MG TAB PO SCH (09:10)
[2017-09-11] MEDS: clonazePAM 1 MG TAB PO SCH (09:10)
[2017-09-11] MEDS: Senokot S 8.6-50 MG TAB PO SCH (09:10)
[2017-09-11] MEDS: Nicotine 21 MG PATCH TD SCH (09:11)
--- NOTE | 2017-09-11 10:56 | PRG ---
DATE OF SERVICE: 09/11/2017 SUBJECTIVE: She is somewhat better. OBJECTIVE: VITAL SIGNS: On exam, temperature 98.6, pulse 80, respirations 20, O2 sats 96%, blood pressure 129/ 72. HEENT: Unremarkable. NECK: No JVD. LUNGS: Clear, as long as she is not trying to force out of breath. CARDIAC: S1 and S2 regular. ABDOMEN: Soft. EXTREMITIES: No edema. LABORATORY DATA: PFT Results: FEV1 of 1.83 liters, which is 65% predicted, FVC is 2.54 liters, whi ch is 69% predicted. Flow-volume loop indicates the patient had very poor effort for the test, but overall these numbers are decreased from previous PFTs. ASSESSMENT: 1. Chronic obstructive pulmonary disease with exacerbation. 2. Vocal cord dysfunction 3. Severe stress and anxiety. PLAN: I think that she is stable for discharge today. She should be tapered over all her steroids for about a week. She needs to quit smoking. She is scheduled to see me in the office in a few mon ths for followup CT scan for pulmonary nodule.
--- NOTE | 2017-09-11 12:21 | DIS ---
PRIMARY CARE PHYSICIAN: Dr. Melvina Copeland. DATE OF ADMISSION: 09/07/2017 DATE OF DISCHARGE: 09/11/2017 DISCHARGE DISPOSITION: Home. PRIMARY DISCHARGE DIAGNOSES: 1. Chronic obstructive pulmonary disease exacerbation. 2. Acute hypoxic respiratory failure, resolved. SECONDARY DISCHARGE DIAGNOSES: Chronic obstructive pulmonary disease/asthma, vocal cord paralysis, anxiety, depression, restless leg syndrome, tobacco abuse disorder, fibromyalgia. PRIMARY PROCEDURE/OPERATION: None. RADIOLOGICAL INVESTIGATION: CT brain, CT cervical spine, and chest x-ray. SIGNIFICANT LABS: WBC 16.2, platelets 233. D-dimer less than 0.27. BMP normal. LFTs normal. Uri nalysis normal. DISCHARGE MEDICATIONS: Cymbalta 60 mg p.o. daily, Estrace 2 mg p.o. daily, DuoNeb q.6 hourly and p .r.n., Dulera 2 puffs inhalation b.i.d., melatonin 2.5 mg p.o. at bedtime, Remeron l5 mg p.o. at bed time, Singulair 10 mg p.o. daily, Zyprexa 5 mg p.o. at bedtime, Mirapex 2 mg p.o. at bedtime, clonaz epam 1 mg b.i.d. p.r.n., prednisone 40 mg p.o. daily for 5 days, followed by 20 mg p.o. daily for 5 days, then 10 mg p.o. daily for 5 days. CONTRAINDICATIONS: None. CODE STATUS: FULL CODE. INPATIENT CONSULTANTS: Dr. Grey was following while in hospital. TEST RESULTS PENDING ON DISCHARGE: None. ALLERGIES: PENICILLIN, DOXYCYCLINE, HALOPERIDOL, LEVOFLOXACIN, PENICILLIN. DISCHARGE PLAN: Post hospital, the patient will follow up with Dr. Grey and primary care physici an as instructed. While in hospital, the patient is given instructions to avoid smoking. HOSPITAL COURSE: The patient is a 47-year-old female with above-mentioned medical problem who was a dmitted by Dr. Wasserman. Please see her H\T\P for further details. This patient has ongoing tobacco abuse disorder as well as vocal cord dysfunction. This patient was admitted for acute respiratory failure. She required intubation and mechanical ventilatory support. Pulmonary group was managing ventilator and subsequently the patient was extubated and transferred to the medical floor. The pat ient was receiving respiratory therapy with DuoNeb and steroid. On discharge we changed to tapering doses of prednisone as well as we also prescribed Dulera. The rest of medication was continued as per home medication. This patient's respiratory failure completely resolved. The patient is seen and examined at bedside today. Review of systems are negative for her. PHYSICAL EXAMINATION: VITAL SIGNS: Currently, temperature 98.6, pulse 88, respiratory rate 20, saturation 98%, blood pres sure 129/72, weight 154 pounds. GENERAL: The patient is currently alert, awake, no acute distress. HEAD: Normocephalic, atraumatic. LUNGS: Clear. CARDIAC: S1, S2 regular without any murmur. ABDOMEN: Soft and benign. EXTREMITIES: No edema. NEUROLOGIC: Nonfocal examination. The patient is ambulatory and she is on room air. Pulmonary cleared her for discharge. All new med ication prescriptions sent to her pharmacy.
== END 2017-09-11 12:41 | disposition home or self-care (01) | DRG 208 ==
LOC: ERS 03:31 → CCU 05:36 → T4-A 09-08 09:48
PROVIDERS: ADMIT Internal Medicine; ATTEND Internal Medicine
PROC: 5A1935Z Respiratory Ventilation, Less than 24 Consecutive Hours (ICD-10-PCS; principal; 2017-09-07)
DX: J44.1 Chronic obstructive pulmonary disease with (acute) exacerbation (principal); J96.21 Acute and chronic respiratory failure with hypoxia; J38.00 Paralysis of vocal cords and larynx, unspecified; J45.901 Unspecified asthma with (acute) exacerbation; F41.9 Anxiety disorder, unspecified; F17.210 Nicotine dependence, cigarettes, uncomplicated; M79.7 Fibromyalgia; G25.81 Restless legs syndrome; F32.9 Major depressive disorder, single episode, unspecified; F41.0 Panic disorder [episodic paroxysmal anxiety]; Z88.1 Allergy status to other antibiotic agents; Z88.0 Allergy status to penicillin; F43.9 Reaction to severe stress, unspecified
CPT/HCPCS: 36415; 51702; 70450; 71010; 72125; 80048; 80053; 81003; 82553; 82805; 83605; 83735; 84484; 84702; 85007; 85025; 85027; 85379; 93005; 94002; 94060; 94640; 94727; 96365; 96375; 99292; A4216; J2405; J2704; J2920; J2930; J3010; J7506; J7620; S0028

== ENCOUNTER 2017-10-22 09:07 | Outpatient (CLI) | payer BC ==
--- NOTE | 2017-10-22 10:49 | CT ---
NONCONTRAST ENHANCED CT CHEST: Date: 10-22-17 Comparison: 07-30-17 FINDINGS: A small approximately 3 mm nodular density seen in the right upper lobe anteriorly. In the left upper lobe, image 16, there was a previous cavitary lesion which now appears to have filled in with soft t issue. This may represent fluid in the left upper lobe soft tissue cavitary lesion. There is more sof t tissue density, however, the overall size is not significantly changed and may be slightly smaller compared to the previous exam. I do recommend continued follow up CT chest to evaluate the left upper lobe region. No other soft tissue masses or lesions seen. There continues to be some anterior medias tinal as well as paratracheal mild areas of lymph node enlargement. These are similar in size from pr evious comparison CT. IMPRESSION: Stable CT appearance of the chest except for left upper lobe cavitary lesion appears to now have some fluid within it. Size is slightly smaller or not significantly changed. POS: [facility]
[2017-10-22] MEDS ORDERED: Iopamidol 250 51% 100 ML VIAL FS ONE (14:01)
== END 2017-10-22 09:08 | disposition home or self-care (01) ==
LOC: CT 09:07
PROVIDERS: ATTEND Internal Medicine Critical Care Medicine
DX: R91.1 Solitary pulmonary nodule (principal)
CPT/HCPCS: 71260

== ENCOUNTER 2017-10-30 07:12 | Observation (INO) | payer BC ==
[2017-10-30 08:11] LABS: #Basophils 0.2 thou/uL (0.0-0.2); #Eosinphils 0.4 thou/uL (0.0-0.7); #Lymphocytes 2.8 thou/uL (1.20-3.40); #Neutrophils 7.3 thou/uL (1.40-6.50); %Basophils 1.5 % (0.0-1.0); %Eosinophils 3.1 % (0.0-10.0); %Lymphocytes 23.8 % (21.0-51.0); %Monocytes 8.9 % (0.0-10.0); Hematocrit 48.2 % (36.0-47.0); Mean Platelet Volume 7.5 fL (7.4-10.4); Red Blood Cell (RBC) Count 5.32 mill/uL (4.20-5.40); White Blood Cell (WBC) Count 11.6 thou/uL (4.8-10.8)
[2017-10-30] MEDS ORDERED: diphenhydrAMINE 50 MG/ML VIAL ONE (08:18)
--- NOTE | 2017-10-30 08:27 | CT ---
CT HEAD WITHOUT CONTRAST: Technique: Multiple axial tomograms were obtained through the head without IV contrast. History: Right sided numbness. FINDINGS: Ventricles have normal size and position. No evidence of intracranial mass, hemorrhage, or infarct. S inuses and mastoids are aerated. IMPRESSION: No acute process identified. POS: [facility]
[2017-10-30 08:29] LABS: ALT (SGPT) 14 U/L (8-55); AST (SGOT) 18 U/L (5-34); Alkaline Phosphatase 63 U/L (40-150); Anion Gap 15 mmol/L (10-20); BUN (Urea Nitrogen) 15 mg/dL (7.0-18.7); Bilirubin, Total 0.3 mg/dL (0.2-1.2); Calc. Creatinine Clearance 0 mL/min (70-130); Calcium 9.7 mg/dL (7.8-10.44); Carbon Dioxide 23 mmol/L (22-29); Chloride 106 mmol/L (98-107); Estimated GFR-MDRD 89; Globulin 3.5 g/dL (2.4-3.5); Protein, Total 7.6 g/dL (6.0-8.3)
[2017-10-30 08:30] LABS: Troponin I 0.011 ng/mL (< 0.028)
[2017-10-30 09:03] LABS: Bilirubin Negative (Negative); Blood, Urine Negative (Negative); Glucose, Urine (Dipstick) Negative (Negative); Ketone, Urine Negative (Negative); Nitrite Negative (Negative); Protein, Urine (Dipstick) Negative (Neg-Trace); Urobilinogen 0.2 mg/dL (0.2-1.0)
[2017-10-30] MEDS ORDERED: HYDROcodone/Acetaminophen 5/325 mg Tablet ONE (09:06)
[2017-10-30 09:17] LABS: Amphetamine Not Detected (NotDetected); Methadone Not Detected (NotDetected); Methamphetamine Not Detected (NotDetected)
[2017-10-30] MEDS ORDERED: Acetaminophen 650 MG Suppository PR PRN (11:54)
[2017-10-30] MEDS ORDERED: Bisacodyl 10 MG SUPP PR PRN (11:54)
[2017-10-30] MEDS ORDERED: Acetaminophen 325 MG TAB PO PRN (11:54)
[2017-10-30] MEDS ORDERED: Guaifenesin DM 100-10/5 ML UDCUP PO PRN (11:54)
[2017-10-30] MEDS ORDERED: Calcium Carbonate 500 MG ChewTAB PO PRN (11:54)
[2017-10-30] MEDS ORDERED: Ondansetron ODT 4 MG TAB PO PRN (11:54)
[2017-10-30] MEDS ORDERED: Bisacodyl 5 MG TAB PO PRN (11:54)
[2017-10-30] MEDS ORDERED: Ondansetron HCl/PF 4 MG/2 ML Vial IVP PRN (11:54)
[2017-10-30] MEDS ORDERED: Cyclobenzaprine 10 MG TAB PO PRN (11:54)
[2017-10-30] MEDS ORDERED: diphenhydrAMINE 50 MG/ML VIAL IVP PRN (11:57)
[2017-10-30] MEDS ORDERED: Ibuprofen 200 MG TAB PO PRN (11:58)
[2017-10-30] MEDS ORDERED: clonazePAM 1 MG TAB PO PRN (11:58)
[2017-10-30] MEDS ORDERED: Enoxaparin Sodium 40 MG/0.4 ML SYRINGE SC SCH (12:00)
--- NOTE | 2017-10-30 12:03 | PDOC.EVN ---
Event Note - Event Note Event Note: PT seen and examined by me. History, exam, assessment and plan reviewed and case discussed with Dr. Melara. Briefly this is a 47 year old female with history of COPD and depression. Her medication was changed yesterday from zyprexa to geodon. She reports taking her dose last night and noted developement of stiffness/muscle spasm and numbness of right face/leg and arm. Took benadryl with some improvement. When awake this morning, symptoms had returned and worsened. She then presented to ER. Given IV benadryl in ER for possible dystonic read\ction with marked improvement in symptoms. Placed in observation to evaluate for TIA. CT brain negative. A/P: 1) Probable dystonic reaction from geodon- d/c geodon; continue benadryl prn. 2) Paresthesias- has chronic right arm paresthesias after cervical spine surgery; leg and face symptoms improved; if new or worsening symptoms develop will obtain MRI and carotids for further evaluation.
[2017-10-30 13:52] VITALS: BMI 25.5
[2017-10-30] MEDS ORDERED: Nicotine 14 MG PATCH TD PRN (14:00)
--- NOTE | 2017-10-30 14:56 | SS-2 ---
SHORT STAY SUMMARY DATE OF ADMISSION: 10/30/2017 CODE STATUS: FULL. Code status was discussed with patient at length who expressed understanding of full code procedures. PRIMARY CARE PHYSICIAN: Dr. Melvina Copeland at [facility]. ATTENDING PHYSICIAN: Alejandra Saha M.D. RESIDENT: Eliecer Melara M.D. HISTORIAN: Patient, ER records, hospital records. CHIEF COMPLAINT: Right-sided numbness and muscle spasms. HISTORY OF PRESENT ILLNESS: Ms. Rodriguez is a pleasant 47-year-old female with past medical history of COPD, resistant anxiety and depression, tobacco abuse, and fibromyalgia. She presented to the [facility] ER with a chief complaint of right upper and lower extremity muscle spasms and right facial and lower extremity numbness that began approximately 4 hours after she started on Geodon. She states that she was recently transitioned off of her Zyprexa and started on the Geodon due to worsening of her seasonal depression. States she has chronic right-sided arm numbness that has not changed due to problems with her neck that is being evaluated outpatient. States that she took 25 mg of Benadryl orally last night that provided some relief of her symptoms; however, this morning, she woke up and her symptoms have worsened, prompting her to go to the ER. She denies previous episodes of similar symptoms when taking antipsychotics. Reports HALDOL allergy, which caused diffuse pruritus. ER COURSE: While in the [facility] ER, the patient had routine lab work drawn. Received a CT of the brain which was unremarkable. She received Mobile 5/325 mg x1 dose, aspirin 324 mg and Benadryl 25 mg IV. She stated that the Benadryl helped significantly relieved her symptoms. PAST MEDICAL HISTORY: 1. COPD. 2. Asthma. 3. Anxiety and depression. 4. Fibromyalgia. 5. Tobacco abuse. 6. Cervical spine issue with right-sided radiculopathy. 7. Restless leg syndrome. PAST SURGICAL HISTORY: 1. Appendectomy. 2. Hysterectomy. 3. Bladder suspension. 4. Tonsillectomy. 5. Unspecified right neck surgery. ALLERGIES: 1. DOXYCYCLINE. 2. HALDOL. 3. LEVAQUIN. 4. LORATADINE. 5. MORPHINE. 6. PENICILLIN. MEDICATIONS: 1. Cymbalta 60 mg daily. 2. Geodon 60 mg. 3. Tylenol Sinus severe caplet 2 tabs p.o. b.i.d. 4. Zyprexa 5 mg p.o. at bedtime. 5. Estradiol 2 mg q.a.m. 6. Caffeine 400 mg daily. 7. DuoNeb 3 mL q.6 hours p.r.n. 8. Melatonin 2.5 mg at bedtime. 9. Singulair 10 mg daily. 10. Dulera 200 mcg/5 mcg inhaler 2 puffs b.i.d. 11. Klonopin 1 mg p.o. b.i.d. p.r.n. 12. Mirapex 4 mg p.o. at bedtime. 13. Chantix 1 mg every day for smoking cessation. FAMILY HISTORY: Unremarkable. SOCIAL HISTORY: The patient reports smoking 1 pack cigarettes per day while on Chantix and states she has cut down from 1/2 pack per day. She has an extensive smoking history and has been smoking for several years. REVIEW OF SYSTEMS GENERAL: Denies fevers or chills. HEENT: Reports nasal congestion. Denies vision change or eye pain. RESPIRATORY: Reports chronic cough and congestion. CARDIOVASCULAR: Denies chest pain or palpitations. GASTROINTESTINAL: Denies nausea, vomiting. GENITOURINARY: Denies incontinence, dysuria. SKIN: Denies rash, lesions baseline. MUSCULOSKELETAL: Reports right-sided right arm and leg stiffness that began shortly after taking her Geodon. Reports chronic right-sided neck spasm. NEUROLOGIC: Reports chronic right arm numbness and new onset right leg and facial numbness. PSYCHIATRIC: Reports anxiety and depression, but states they are at her baseline. Denies suicidal or homicidal ideation. PHYSICAL EXAMINATION: VITAL SIGNS: Blood pressure 124/67, pulse 72, respiratory rate 18, T-max 98.5 Fahrenheit, pulse ox 90% on room air, current weight 70 kilograms. GENERAL: Alert and oriented x3, no acute distress, well-developed, well- nourished, appropriately interactive. HEENT: Normocephalic, atraumatic. PERRLA, EOMI. Conjunctivae grossly normal. External ears and nose within normal limits. NECK: Supple, without lymphadenopathy, thyromegaly. HEART: Normal rate, regular rhythm without murmurs or gallops. Radial pulses and pedal pulses 2+ bilaterally. RESPIRATORY: Normal effort without retractions. Expiratory wheezes are appreciated diffusely as are course of airway, breath sounds with expiration. ABDOMEN: Soft, nontender to palpation. Bowel sounds x4 quadrant. No mass or distention appreciated. EXTREMITIES: No clubbing, cyanosis or edema. MUSCULOSKELETAL: Structure and tone are grossly normal. Muscle strength 5/5 in all major muscle groups. NEUROLOGIC: No gross focal deficits. Sensation is decreased in the right lower extremity, upper extremity and right side of the face. Deep tendon reflexes are 1/4 on the patellar tendon and the brachioradialis. GCS 15. SKIN: Warm, dry, and intact without lesions. PSYCHIATRIC: Mood and affect are appropriate. LABORATORY DATA: CBC: White blood cell count 11.6, hemoglobin 15.1, hematocrit 48.2, MCV 90.6, RDW 12.6, platelet count 251, neutrophil 62.7. Chemistries: Sodium 140, potassium 4.3, chloride 106, bicarbonate 23, BUN 15, creatinine 0.70. EGFR 89, glucose 99, calcium 9.7, total bilirubin 0.3, AST 18 , ALT 14, alkaline phosphatase 63, total protein 7.6, albumin 4.1, globulin 3.5. Cardiac markers: CK-MB 2.1, troponin 0.011. Urinalysis: Specific gravity 1.015, urine protein, glucose, ketones, blood, nitrite, bilirubin and leukocyte esterase negative. Urine drug screen negative. IMAGING: CT of the brain showed no acute processes. EKG: Rate 69, normal sinus rhythm with no appreciated ST changes. QTC interval 420. ASSESSMENT: Ms. Rodriguez is a 47-year-old female with past medical history of chronic obstructive pulmonary disease, anxiety and depression that is resistant to treatment with a recent medication change that presented with a musculoskeletal stiffness and right-sided numbness that began approximately 4 hours after taking Geodon. Symptoms were relieved with Benadryl. PLAN: 1. Dystonic reaction secondary to Geodon. We will stop Geodon at this time and provide IV Benadryl for symptomatic relief. We will restart Zyprexa at time of discharge. We will continue to monitor neurological status and pursue further evaluation if her neurologic status changes. We will also start aspirin as the patient warrants aspirin therapy at this time. 2. Chronic obstructive pulmonary disease, restart home medications and p.r.n. DuoNebs. 3. Leukocytosis, likely secondary to stress response. Repeat CBC in the morning. 4. Tobacco abuse. Nicotine patch provided. We will continue the Chantix at time of discharge. Discontinued estradiol and discussed with the patient that she has increased risk for thromboembolic events due to her smoking status, age and estrogen use. 5. Muscle spasms secondary to unspecified cervical radiculopathy. Flexeril, Tylenol and ibuprofen provided. We will continue outpatient evaluation. 6. Anxiety and depression. Hold Geodon and Zyprexa. Continue other home medications. 7. Prophylaxis. Lovenox. 8. Diet: Heart healthy. 9. CODE STATUS: FULL. DISPOSITION AND ESTIMATED LENGTH OF STAY: She was placed on the stroke unit and admitted under observation status. Length of stay likely less than 2 midnights. History and physical exam and management of this patient were discussed Dr. Saha who is in agreement with this assessment and plan unless otherwise stated in her history and physical. HOSPITAL STAY SUMMARY: On the evening of admission, the patient became frustrated with nursing staff and complained that she had not been receiving her medications. Patient stated she wanted to be released from the hospital and had arranged a ride to take her home. Nursing staff provided patient Against Medical Advise paperwork, which the patient signed and was discharged from the floor on the evening of . The primary team was not notified and was unaware of the events of that evening until the morning of 10/31/17. As a result, the primary team is unsure of the patient's physical status at the time left AMA. DISCHARGE INSTRUCTIONS AND MEDICATIONS: None provided since patient left AMA. ASHLEY
[2017-10-30 15:53] LABS: Troponin I Less than 0.010 ng/mL (< 0.028)
[2017-10-30 16:43] VITALS: BP 121/75; TEMP 99.2
[2017-10-30 18:30] LABS: Troponin I Less than 0.010 ng/mL (< 0.028)
[2017-10-30] MEDS ORDERED: Mometasone/Formoterol 120 PUFF INHALER INH SCH (18:30)
[2017-10-30] MEDS ORDERED: PRAMIPEXOLE DI HCL PO SCH (21:00)
[2017-10-30] MEDS ORDERED: Pramipexole Di-HCl 1 MG TAB PO SCH (21:00)
[2017-10-30] MEDS ORDERED: MELATONIN PO SCH (21:00)
[2017-10-30] MEDS ORDERED: Melatonin 3 MG TAB PO SCH (21:00)
[2017-10-30] MEDS ORDERED: PYRIDOXINE PO SCH (21:00)
[2017-10-31] MEDS ORDERED: Aspirin 81 mg Enteric Coated Tablet PO SCH (09:00)
[2017-10-31] MEDS ORDERED: DULoxetine 60 MG CAP PO SCH (09:00)
[2017-10-31] MEDS ORDERED: Montelukast Sodium 10 mg Tablet PO SCH (09:00)
[2017-10-31] MEDS ORDERED: Enoxaparin Sodium 40 MG/0.4 ML SYRINGE SC SCH (09:00)
[2017-10-31] MEDS ORDERED: DULoxetine 30 MG CAP PO SCH (09:00)
--- NOTE | 2017-11-09 15:53 | EKG ---
Test Reason : Blood Pressure : / mmHG Vent. Rate : 069 BPM Atrial Rate : 069 BPM P-R Int : 176 ms QRS Dur : 074 ms QT Int : 392 ms P-R-T Axes : 067 057 075 degrees QTc Int : 420 ms Normal sinus rhythm Possible Left atrial enlargement Septal infarct , age undetermined Abnormal ECG Confirmed by BRITTNI RASMUSSEN, BRODERICK ([id number]), associate editor MARIELENA DUQUE ([id number]) on 11/09/2017 3:52:19 PM Referred By: Confirmed By:BRODERICK ELKINS MD
== END 2017-10-30 21:26 | disposition left against medical advice (07) ==
LOC: SCSER 07:12 → 2SE 10:39
PROVIDERS: ADMIT Family Medicine; ATTEND Family Medicine
DX: G24.09 Other drug induced dystonia (principal); T43.595A Adverse effect of other antipsychotics and neuroleptics, initial encounter; J44.9 Chronic obstructive pulmonary disease, unspecified; D72.829 Elevated white blood cell count, unspecified; M54.12 Radiculopathy, cervical region; M62.838 Other muscle spasm; F41.8 Other specified anxiety disorders; J45.909 Unspecified asthma, uncomplicated; M79.7 Fibromyalgia; G25.81 Restless legs syndrome; F17.210 Nicotine dependence, cigarettes, uncomplicated; Z79.890 Hormone replacement therapy; Z79.51 Long term (current) use of inhaled steroids; Z79.899 Other long term (current) drug therapy; Z88.1 Allergy status to other antibiotic agents; Z88.5 Allergy status to narcotic agent; Z88.0 Allergy status to penicillin; Z88.8 Allergy status to other drugs, medicaments and biological substances; Z90.49 Acquired absence of other specified parts of digestive tract; Z90.89 Acquired absence of other organs; Z90.710 Acquired absence of both cervix and uterus; Z98.890 Other specified postprocedural states
CPT/HCPCS: 36415; 70450; 80053; 80306; 81003; 82553; 84484; 85025; 93005; 94640; 96374; G0378; J1200; J7620

== ENCOUNTER 2017-11-08 20:43 | Observation (INO) | payer BC ==
[2017-11-08] MEDS ORDERED: methylPREDNISolone Sod Succ/PF 125 MG/2 ML VIAL ONE (21:11)
[2017-11-08] MEDS ORDERED: Magnesium Sulfate 2 GM/100 ML BAG ONE (21:11)
[2017-11-08] MEDS ORDERED: Azithromycin 500 MG VIAL ONE (21:11)
[2017-11-08 21:12] LABS: #Basophils 0.1 thou/uL (0.0-0.2); #Eosinphils 0.1 thou/uL (0.0-0.7); #Lymphocytes 3.4 thou/uL (1.20-3.40); #Monocytes 1.2 thou/uL (0.11-0.59); #Neutrophils 10.5 thou/uL (1.40-6.50); %Basophils 0.8 % (0.0-1.0); %Eosinophils 0.8 % (0.0-10.0); %Lymphocytes 22.2 % (21.0-51.0); %Monocytes 7.6 % (0.0-10.0); Hematocrit 42.1 % (36.0-47.0); Mean Platelet Volume 7.4 fL (7.4-10.4); White Blood Cell (WBC) Count 15.3 thou/uL (4.8-10.8)
[2017-11-08 21:34] LABS: ALT (SGPT) 15 U/L (8-55); AST (SGOT) 18 U/L (5-34); Alkaline Phosphatase 65 U/L (40-150); Anion Gap 14 mmol/L (10-20); BUN (Urea Nitrogen) 19 mg/dL (7.0-18.7); Bilirubin, Total 0.2 mg/dL (0.2-1.2); CK (CPK) 165 U/L (29-168); Calc. Creatinine Clearance 0 mL/min (70-130); Calcium 9.7 mg/dL (7.8-10.44); Carbon Dioxide 26 mmol/L (22-29); Chloride 104 mmol/L (98-107); Estimated GFR-MDRD 63; Globulin 3.4 g/dL (2.4-3.5); Protein, Total 7.6 g/dL (6.0-8.3)
[2017-11-08 21:39] LABS: Troponin I Less than 0.010 ng/mL (< 0.028)
[2017-11-08 21:45] LABS: Modified Allen's Test POSITIVE; Sodium 140 mmol/L (135-148); Vent NO
[2017-11-08 21:46] LABS: Mode NC
--- NOTE | 2017-11-08 22:06 | RAD ---
UPRIGHT PORTABLE CHEST ONE VIEW: 11/08/17 HISTORY: 47-year-old female with shortness of breath. History of asthma and COPD with wheezing. COMPARISON: 09/07/17. FINDINGS: Monitor leads overlie the chest. Scattered linear and interstitial increased markings are noted in th e upper lung zones and lower lung zones but these appear stable from the prior study consistent with some stable chronic change. No confluent pneumonia or overt edema. IMPRESSION: Stable bilateral linear chronic lung changes. No evidence for pneumonia or other acute process. POS: [facility]
[2017-11-08] MEDS ORDERED: Albuterol Sulfate 2.5 mg/3 ml Neb ONE (23:16)
[2017-11-09] MEDS ORDERED: Oseltamivir 75 MG CAP PO SCH (02:15)
[2017-11-09] MEDS ORDERED: Sodium Chloride 0.45% 1,000 ML IV SCH (03:00)
[2017-11-09] MEDS ORDERED: Albuterol Sulfate 2.5 mg/3 ml Neb ONE (09:41)
[2017-11-09] MEDS ORDERED: Azithromycin 250 MG TAB PO SCH (10:30)
[2017-11-09] MEDS ORDERED: Albuterol Sulfate 2.5 mg/3 ml Neb NEB PRN (10:49)
[2017-11-09] MEDS ORDERED: clonazePAM 1 MG TAB PO PRN (10:50)
[2017-11-09] MEDS ORDERED: Estradiol 1 MG TAB PO SCH (12:00)
--- NOTE | 2017-11-09 12:15 | HP ---
CHIEF COMPLAINT: Shortness of breath. HISTORY OF PRESENT ILLNESS: This is a 47-year-old female patient with a past medical history signifi cant for COPD, asthma, who is still an active smoker, presented here with 3 days history of worsening shortness of breath with decreased exercise tolerance. The patient denies any fever, denies any sic k contact, but has been using more frequently high nebulizer treatment without much of any relief. T he patient also on steroids. On presentation, the patient was diagnosed with COPD exacerbation and i s now being admitted for further management. PAST MEDICAL HISTORY: Significant for COPD, asthma, tobacco abuse, restless leg syndrome, anxiety, d epression, fibromyalgia, cervical spine issues, right-sided radiculopathy. MEDICATIONS: Reviewed as documented on [employer]. ALLERGIES: DOXYCYCLINE, HALDOL, LEVAQUIN, LORATADINE, MORPHINE, and PENICILLIN. FAMILY HISTORY: None significantly related to the presenting illness. SOCIAL HISTORY: The patient is still an active smoker. Denies alcohol or illicit drug use. REVIEW OF SYSTEMS: As documented in the body of the history. All the other systems were reviewed an d were found not to be significantly related to the presenting illness. LABORATORY INVESTIGATION: Showed a white count of 15,300. Chemistry unremarkable. Blood gas is unr emarkable. PHYSICAL EXAMINATION: GENERAL: The patient was found to be in some respiratory distress. VITAL SIGNS: Afebrile with temperature 98.2, pulse 78, respiratory rate of 16, O2 sat 97% on 2 liter s with a blood pressure 124/60. HEENT: Unremarkable with moist oral mucosa. No conjunctival injection or icterus. NECK: Supple. CARDIOVASCULAR SYSTEM: First and second heart sounds were heard. RESPIRATORY SYSTEM: Showed some rhonchi bilaterally. DIGESTIVE SYSTEM: Revealed a benign abdomen. EXTREMITIES: No peripheral edema. SKIN: No new gross rash. LYMPHATICS: No peripheral lymphadenopathy. IMPRESSION: 1. Chronic obstructive pulmonary disease exacerbation. 2. Tobacco abuse. 3. History of asthma. 4. History of anxiety/depression. PLAN: 1. The patient has already been admitted. 2. Parenteral steroids and empiric antibiotics with Zithromax. 3. Nebulizer treatment with nicotine patch. 4. Extensive time was spent was spent, counseling this patient on the need to discontinue tobacco us e. 5. Further management to be dependent on the clinical course. If patient continues to do well, she wants to leave within the next 24 hours.
[2017-11-09] MEDS: Nicotine 21 MG PATCH TD SCH ×2 (13:21→18:04)
[2017-11-09] MEDS: ALPRAZolam 0.5 MG TAB PO PRN ×2 (13:21→20:24)
[2017-11-09] MEDS ORDERED: [UNRECOGNIZED DRUG - OTHER] PO SCH (21:00)
[2017-11-09] MEDS ORDERED: MELATONIN PO SCH (21:00)
[2017-11-09] MEDS ORDERED: OLANZapine 5 MG TAB PO SCH (21:00)
[2017-11-09] MEDS ORDERED: traMADol HCl 50 MG TAB PO SCH (21:00)
[2017-11-09] MEDS ORDERED: PYRIDOXINE PO SCH (21:00)
[2017-11-09] MEDS ORDERED: GUAIFEN PO SCH (21:00)
[2017-11-09] MEDS ORDERED: Cyclobenzaprine 10 MG TAB PO SCH (21:00)
[2017-11-09] MEDS ORDERED: PHENYLEPH PO SCH (21:00)
[2017-11-09] MEDS ORDERED: ACETAMINOPHN PO SCH (21:00)
[2017-11-09] MEDS ORDERED: Pramipexole Di-HCl 1 MG TAB PO SCH (21:00)
[2017-11-10] MEDS ORDERED: Azithromycin 250 MG TAB PO SCH (09:00)
[2017-11-10] MEDS ORDERED: CAFFEINE PO SCH (09:00)
[2017-11-10] MEDS ORDERED: Estradiol 1 MG TAB PO SCH (09:00)
[2017-11-10 11:05] VITALS: BP 129/69; TEMP 98.4
[2017-11-10] MEDS ORDERED: Mometasone/Formoterol 120 PUFF INHALER INH SCH (18:30)
--- NOTE | 2017-11-10 21:45 | DIS ---
DATE OF ADMISSION: 11/09/2017 DATE OF DISCHARGE: 11/10/2017 CONDITION AT THE TIME OF DISCHARGE: Stable and improved. DISCHARGE DIAGNOSES: 1. Acute respiratory distress secondary to acute chronic obstructive pulmonary disease exacerbation. 2. Chronic obstructive pulmonary disease exacerbation. 3. Chronic tobacco abuse. 4. History of asthma. 5. History of anxiety and depression. PRIMARY CARE PHYSICIAN: Dr. Melvina Copeland at [facility]. PRIMARY CLAY BURNER: Dr. Grey. DISCHARGE MEDICATIONS: Include, 1. Medrol Dosepak. 2. Z-Amie. 3. Nicotine patch 21 mg patch daily. 4. Xanax 0.25 mg p.o. b.i.d. p.r.n. and resume the home medications as per the HPI. CONSULTATIONS: None. PROCEDURES: Include chest x-ray, which did not show any evidence of pneumonia upon presentation. HISTORY OF PRESENT ILLNESS: Ms. Rodriguez is a 47-year-old female with known history of asth ma who is under the care of Dr. Grey the pulmonary clinic: presented to the ER with complaints of shortness of breath. Her initial workup was unremarkable except for clinical evidence of COPD exacer bation. She was given IV steroids and oral azithromycin nebulizers and was admitted for acute respir atory distress secondary to chronic obstructive pulmonary disease exacerbation. Please see admission history and physical for further details. HOSPITAL COURSE: The patient was continued on IV steroids, which were eventually changed to oral radha roids. She did very well overnight and this morning, she was seen and examined and was eager to go h ome. She has been back to her baseline self. PHYSICAL EXAMINATION: GENERAL: Patient appears to very anxious and hyperactive. VITAL SIGNS: This morning include temperature 98.4, pulse of 86, respirations 20, saturating 97% on room air, blood pressure 129/69, in no acute distress. CHEST: Clear to auscultation without any wheezing. HEART: Rate and rhythm is regular. LABORATORY DATA: CBC showed WBCs of 15.3, likely due to steroids. Serum chemistries, cardiac enzyme s, and BMP unremarkable. The patient was prescribed Medrol Dosepak and Z-AMIE. She requested for me to stop her Klonopin and t ramadol and requested prescription for Xanax. I have instructed her to follow with her primary care physician with regard to this. She was given 20 tablets of Xanax with instructions of not to use Klo nopin on that. She was also prescribed nicotine patch at this time as she is trying to quit smoking.
== END 2017-11-10 12:15 | disposition home or self-care (01) ==
LOC: ERS 20:43 → 2SW 11-09 00:58
PROVIDERS: ADMIT Internal Medicine; ATTEND Internal Medicine
DX: J44.1 Chronic obstructive pulmonary disease with (acute) exacerbation (principal); R06.03 Acute respiratory distress; J45.909 Unspecified asthma, uncomplicated; F17.200 Nicotine dependence, unspecified, uncomplicated; F41.9 Anxiety disorder, unspecified; F32.9 Major depressive disorder, single episode, unspecified; G25.81 Restless legs syndrome; M79.7 Fibromyalgia; Z88.1 Allergy status to other antibiotic agents; Z88.0 Allergy status to penicillin; Z88.8 Allergy status to other drugs, medicaments and biological substances; Z88.5 Allergy status to narcotic agent
CPT/HCPCS: 71010; 80053; 82553; 82805; 83880; 84484; 85025; 87633; 87798; 93005; 94640; 96365; 96366; 96367; 96375; 96376; 99406; A4216; G0378; J0456; J2920; J2930; J3475; J7611; J7620

== ENCOUNTER 2017-12-02 12:22 | Inpatient (IN) | payer BC ==
[2017-12-02] MEDS ORDERED: Albuterol Sulfate 2.5 mg/0.5 ml Neb ONE (12:34)
[2017-12-02] MEDS ORDERED: methylPREDNISolone Sod Succ/PF 125 MG/2 ML VIAL ONE (12:34)
[2017-12-02] MEDS ORDERED: Water For Inject, Bacteriostat 30 ML ONE (12:34)
[2017-12-02] MEDS ORDERED: Succinylcholine Chloride 20 MG/ML 10 ml SYRINGE FS ONE (12:37)
[2017-12-02] MEDS ORDERED: Propofol 1,000 MG/100 ML VIAL IV ONE ×2 (12:46→17:14)
[2017-12-02 13:10] LABS: #Basophils 0.1 thou/uL (0.0-0.2); #Eosinphils 0.4 thou/uL (0.0-0.7); #Lymphocytes 3.8 thou/uL (1.20-3.40); #Neutrophils 8.2 thou/uL (1.40-6.50); %Basophils 0.7 % (0.0-1.0); %Lymphocytes 27.9 % (21.0-51.0); %Monocytes 7.6 % (0.0-10.0); %Neutrophils 60.8 % (42.0-75.0); Hemoglobin 15.5 g/dL (12.0-16.0); Mean Corpuscular HGB CONC 32.6 g/dL (32.0-36.0); Mean Corpuscular Hemoglobin 30.1 pg (27.0-31.0); Mean Corpuscular Volume 92.4 fl (81.0-99.0); Mean Platelet Volume 7.7 fL (7.4-10.4); Platelet Count 256 thou/uL (130-400); Red Blood Cell (RBC) Count 5.14 mill/uL (4.20-5.40); White Blood Cell (WBC) Count 13.5 thou/uL (4.8-10.8)
[2017-12-02 13:19] LABS: BHCG - Serum Negative (NEGATIVE); Pregs Control Background? CLEAR/WHITE (CLR/WHITE); Pregs Control Bar Appear? YES (CONTROL BAR)
[2017-12-02 13:21] LABS: PTT 31.2 SEC (22.9-36.1)
[2017-12-02 13:23] LABS: Actual Bicarbonate (HCO3a) 24.8 mEq/L (22-26); Base Excess (BEa) -2.3 mEq/L (0 (+/-) 2.5); CO2 Tension 51.9 mmHg (35.0-45.0); O2 Tension (PaO2) 123.1 mmHg (80.0-100.0)
[2017-12-02 13:24] LABS: ALV-art Gradient 166.025 (0-20); Analyzer IN Cardio ER; Calcium, Ionized 1.2 mmol/L (1.12-1.30); Puncture Site LRA
[2017-12-02 13:30] LABS: CKMB 2.5 ng/mL (0-6.6); Troponin I 0.017 ng/mL (< 0.028)
--- NOTE | 2017-12-02 13:32 | RAD ---
CHEST 1 VIEW: Date: 12/02/17 HISTORY: Intubated. COMPARISON: 11/08/17. FINDINGS: Cardiac silhouette and pulmonary vasculature are unremarkable. Mediastinum is midline. Tip of an endo tracheal catheter overlies the thoracic inlet. Nasogastric tube descends to the stomach. There is no lobar consolidation or evidence of pneumothorax. IMPRESSION: Endotracheal catheter and nasogastric tube are in good radiographic position. POS: [facility]
[2017-12-02 13:34] LABS: Anion Gap 15 mmol/L (10-20); BUN (Urea Nitrogen) 17 mg/dL (7.0-18.7); CK (CPK) 172 U/L (29-168); Calc. Creatinine Clearance 0 mL/min (70-130); Calcium 9.8 mg/dL (7.8-10.44); Carbon Dioxide 24 mmol/L (22-29); Chloride 104 mmol/L (98-107); Estimated GFR-MDRD 86; Glucose 84 mg/dL (70-105); Lipase 91 U/L (8-78); Magnesium 2.5 mg/dL (1.6-2.6); Potassium 4.5 mmol/L (3.5-5.1); Sodium 138 mmol/L (136-145)
[2017-12-02 13:41] LABS: Bilirubin Negative (Negative); Blood, Urine Negative (Negative); Clarity CLEAR (Clear); Glucose, Urine (Dipstick) Negative (Negative); Leukocyte Negative (Negative); Nitrite Negative (Negative); Protein, Urine (Dipstick) 30 mg/dL (Neg-Trace); Specific Gravity, Urine 1.025 (1.002-1.036); Urobilinogen 0.2 mg/dL (0.2-1.0)
[2017-12-02 13:50] LABS: Bacteria/HPF None Seen HPF (None Seen); Hyaline Casts/LPF 4-6 HYALINE CAST LPF (0-3 Hyaline); Pathc Cast-AUWi Flag 1.49 (0-2.49); RBC/HPF 0-3 HPF (0-3); Squamous Epithelial 0-3 HPF (0-3); WBC/HPF 0-3 HPF (0-3)
[2017-12-02 13:59] LABS: Amphetamine Not Detected (NotDetected); Barbiturates Screen Not Detected (NotDetected); Benzodiazepine Screen Not Detected (NotDetected); Cocaine Metabolite Screen Not Detected (NotDetected); Medtox Control Line Valid? VALID (VALID); Medtox Reader # READER 1; Methadone Not Detected (NotDetected); Methamphetamine Detected (NotDetected); Opiate Screen Not Detected (NotDetected); Oxycodone Screen Not Detected (NotDetected); Phencyclidine (PCP) Not Detected (NotDetected); THC/Cannabinoid Screen Not Detected (NotDetected); Tricyclic Screen Not Detected (NotDetected)
[2017-12-02] MEDS ORDERED: Lorazepam 2 MG/ML VIAL ONE (14:06)
--- NOTE | 2017-12-02 16:17 | HP ---
CHIEF COMPLAINT: Shortness of breath. HISTORY OF PRESENT ILLNESS: This is a 47-year-old pleasant lady who was recently discharged from our hospital on the 11/10 after being treated for acute respiratory distress secondary to chronic obstru ctive pulmonary disease exacerbation, comes in back to the hospital with shortness of breath. The alex vazquez during the time of evaluation by the ER physician complained of shortness of breath and the whe ezing got worse to the point that she became hypoxic and the ER physician had to intubate her. I hav e been called in for further evaluation and treatment of the patient. The patient at the time of my evaluation has been intubated and sedated. Most of the history has been obtained from the ER physici an and the chart. PAST MEDICAL HISTORY: Significant for history of COPD, asthma, tobacco use, restless leg syndrome, a nxiety, depression, fibromyalgia, C-spine issues and right-sided radiculopathy. MEDICATIONS: Please review MAR. ALLERGIES: DOXYCYCLINE, HALDOL, LEVAQUIN, LORATADINE, MORPHINE and PENICILLIN. FAMILY HISTORY: Negative for diabetes and hypertension. SOCIAL HISTORY: Active smoker. Methamphetamine is found in the UDS and previous history shows she i s not an alcoholic. REVIEW OF SYSTEMS: Cannot be obtained as the patient is intubated. PHYSICAL EXAMINATION: VITAL SIGNS: The patient's blood pressure is 136/90, pulse is 77, respirations 16 and temperature 98 .5. GENERAL: The patient is lying in bed, intubated and sedated. HEENT: Atraumatic and normocephalic. Pupils are equally round and reactive to light. Extraocular m uscles are intact. Mucous membranes are moist. NECK: Supple. No JVD. CHEST: Coarse breath sounds, end expiratory wheezes heard. HEART: S1 and S2 normal. No murmurs or gallops. ABDOMEN: Soft. EXTREMITIES: No cyanosis, clubbing or edema. NEUROLOGIC: Cannot be fully evaluated. LABORATORY AND IMAGING DATA: UDS is positive for methamphetamine. UA is negative. Chest x-ray, int ubated. Endotracheal tube and nasogastric tube are in good position, no consolidation seen. Lipase is 91, CK is 172, potassium is 4.5 and creatinine is 0.7. AB.3, 51.1, 23, 24. WBC count is 13 and hemoglobin is 15. ASSESSMENT AND PLAN: 1. Acute respiratory failure secondary to chronic obstructive pulmonary disease exacerbation. Most probably, I will do IV steroids and nebulizer treatments. Consult Pulmonology for vent management. She is allergic to multiple ANTIBIOTICS, so we will hold antibiotics for now. 2. Chronic tobacco use. We will securities counselor her when she is extubated, methamphetamine use. We will co unsel her history of asthma, history of anxiety and depression. 3. Sequential compression devices for deep venous thrombosis prophylaxis. I will make recommendatio ns as the clinical course evolves and work with a forklift truck operator in caring for the patient.
[2017-12-02] MEDS ORDERED: Propofol 500 MG/50 ML VIAL ONE (17:13)
[2017-12-02] MEDS ORDERED: Ondansetron HCl/PF 4 MG/2 ML Vial IVP PRN (17:51)
[2017-12-02] MEDS ORDERED: hydrALAZINE 20 MG/ML VIAL SLOW IVP PRN (17:51)
[2017-12-02] MEDS ORDERED: Ipratropium Bromide 2.5 ml Neb NEB SCH (18:30)
[2017-12-02] MEDS ORDERED: Albuterol Sulfate 2.5 mg/3 ml Neb NEB SCH (18:30)
[2017-12-02 19:36] VITALS: BMI 26.4
[2017-12-02] MEDS: Propofol 1,000 MG/100 ML VIAL IV PRN (21:19)
[2017-12-02] MEDS: Famotidine/PF 20 mg/2ml Vial SLOW IVP SCH (21:20)
[2017-12-02] MEDS: Sodium Chloride 0.9% 1,000 ML IV SCH (21:25)
--- NOTE | 2017-12-02 21:45 | CON ---
DATE OF CONSULTATION: 12/02/2017 HISTORY OF PRESENT ILLNESS: Ms. Rodriguez is a 47-year-old female who has been seen here multiple time s in the past. Her tells me that she called him on the way to the ER since stating that she was short of mariah ath. She subsequently has been intubated. She is sedated with propofol and unable to give a history. The says she has been doing reasonably well up until today. Unfortunately, she continues to smo ke heavily. PAST MEDICAL HISTORY: 1. Remarkable for asthma. 2. Chronic obstructive pulmonary disease. 3. Restless legs. 4. History of anxiety, depression, and fibromyalgia. 5. History of vocal cord dysfunction. 6. History of left upper lobe cavitary lesion, review on CTs this looks may be slightly smaller. PAST SURGICAL HISTORY: Remarkable for appendectomy, hysterectomy, tonsillectomy, ulnar nerve surgery and neck surgery. ALLERGIES: Reported to PENICILLIN, LEVAQUIN, HALDOL, and DOXYCYCLINE. SOCIAL HISTORY: She has a , he is at the bedside, mom is at the bedside. 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 FAMILY HISTORY: Negative for lung disease at an early age. MEDICATIONS: Prior to admission, she was on Mirapex, olanzapine, estrogen, mirtazapine, Klonopin, Si ngulair, duloxetine. REVIEW OF SYSTEMS: Not obtainable because she is intubated. Her did not report anything more problem, stating that she was short of breath, was going to the emergency room. PHYSICAL EXAMINATION: VITAL SIGNS: Blood pressure 109/87, heart rate 117. She appears to be in sinus rhythm. Respiratory rate is from mechanical ventilation. Respiratory phase is slightly prolonged. HEENT: Her pupils are equal. Sclerae is anicteric. She moves all her extremities in spite of just receiving 100 mg total of propofol as a bolus. NECK: Supple, no lymphadenopathy. LUNGS: Remarkable for distant breath sounds. HEART: Regular rhythm. ABDOMEN: Soft, no guarding or tenderness. EXTREMITIES: Without asymmetry. LABORATORY DATA: White count 13.5, hemoglobin 15.5, platelets 256. Sodium 138, potassium 4.5, chlor priya 104, bicarbonate 24, BUN 17, creatinine 0.7. Blood gas done in the ER pH of 7.3, CO2 of 51, pO2 of 123 on tidal volume of 450, rate of 14, 50% FiO2, 10 of pressure support, 5 of PEEP, peak inspirat ory pressure was 26. Chest x-ray shows no infiltrates. IMPRESSION: Chronic obstructive pulmonary disease exacerbation/asthma exacerbation with respiratory failure. PLAN: Mechanical ventilation, steroids, nebulizer treatments, a single agent empiric antimicrobial a gent is reasonable, but not absolutely necessary. I suspect ongoing tobacco use contributed to this. I am not sure what to do with a drug screen that was positive for methamphetamine, she has not been detected in the past. This certainly could be a false positive, it is a nonissue at this point. I met with the and mother and answered all their questions. Critical care time 35 minutes.
[2017-12-03] MEDS: Propofol 1,000 MG/100 ML VIAL IV PRN ×6 (03:10→23:21)
[2017-12-03 05:14] LABS: #Lymphocytes 1.1 thou/uL (1.20-3.40); #Monocytes 0.1 thou/uL (0.11-0.59); #Neutrophils 8.9 thou/uL (1.40-6.50); %Basophils 0.1 % (0.0-1.0); %Eosinophils 0.1 % (0.0-10.0); %Lymphocytes 10.7 % (21.0-51.0); %Monocytes 1.2 % (0.0-10.0); %Neutrophils 87.9 % (42.0-75.0); Hemoglobin 13.4 g/dL (12.0-16.0); Mean Corpuscular HGB CONC 33.2 g/dL (32.0-36.0); Mean Corpuscular Hemoglobin 30.5 pg (27.0-31.0); Mean Corpuscular Volume 91.9 fl (81.0-99.0); Platelet Count 210 thou/uL (130-400); RBC Distribution Width 12.9 % (11.5-14.5); Red Blood Cell (RBC) Count 4.39 mill/uL (4.20-5.40); White Blood Cell (WBC) Count 10.1 thou/uL (4.8-10.8)
[2017-12-03 05:19] LABS: Anion Gap 12 mmol/L (10-20); BUN (Urea Nitrogen) 11 mg/dL (7.0-18.7); Calc. Creatinine Clearance 124 mL/min (70-130); Calcium 8.4 mg/dL (7.8-10.44); Carbon Dioxide 23 mmol/L (22-29); Chloride 109 mmol/L (98-107); Estimated GFR-MDRD Greater than 90; Glucose 140 mg/dL (70-105); Potassium 3.8 mmol/L (3.5-5.1); Sodium 140 mmol/L (136-145)
[2017-12-03] MEDS: Sodium Chloride 0.9% 1,000 ML IV SCH ×2 (05:31→20:54)
[2017-12-03] MEDS: Lorazepam 2 MG/ML VIAL SLOW IVP PRN ×2 (07:45→11:53)
--- NOTE | 2017-12-03 07:50 | PDOC.PULCC ---
CCU Progress Note: Subj/Obj - Subjective Date: 12/03/17 Time: 07:49 Subjective: intubated and heavily sedated - Objective Allergies/Adverse Reactions: Allergies Allergy/AdvReac Type Severity Reaction Status Date / Time Penicillins Allergy Intermediate Hives Verified 05/31/17 17:24 doxycycline Allergy Hives Verified 05/31/17 17:24 haloperidol [From Haldol] Allergy Verified 05/31/17 17:24 levofloxacin [From Levaquin] Allergy Hives Verified 05/31/17 17:24 loratadine [From Claritin] Allergy Rash Verified 05/31/17 17:24 morphine Allergy Verified 11/09/17 03:09 penicillin G Allergy Verified 05/31/17 17:24 Medications: Current Medications Albuterol/Ipratropium (Duoneb) 3 ml NEB [id number] [facility] Last Admin: 12/03/17 07:07 Dose: 3 ml Enoxaparin Sodium (Lovenox) 40 mg SC 0900 [place] Famotidine (Pepcid) 20 mg SLOW IVP Q12HR [facility] Last Admin: 12/02/17 21:20 Dose: 20 mg Hydralazine HCl (Apresoline) 10 mg SLOW IVP Q4H PRN PRN Reason: Systolic BP > 180 Midazolam HCl (Versed) 100 mls @ 0 mls/hr IVPB INF [place]; Titrate PRN Reason: Protocol Last Admin: 12/02/17 18:00 Dose: 100 mls Sodium Chloride (Normal Saline 0.9%) 1,000 mls @ 75 mls/hr IV .[id number] [facility] Stop: 12/04/17 17:52 Last Admin: 12/03/17 05:31 Dose: 1,000 mls Azithromycin 250 mg/ Sodium (Chloride) 250 mls @ 250 mls/hr IVPB Q24HR [place] Lorazepam (Ativan) 1 mg SLOW IVP Q4H PRN PRN Reason: Anxiety/Agitation Methylprednisolone Sodium Succinate (Solu-Medrol) 40 mg IVP Q6HR [facility] Last Admin: 12/03/17 05:25 Dose: 40 mg Ondansetron HCl (Zofran) 4 mg IVP Q6H PRN PRN Reason: Nausea/Vomiting Propofol (Diprivan) 1,000 mg IV INF PRN; Protocol PRN Reason: TO ACHIEVE LONG SCORE 2-3 Stop: 01/01/18 20:07 Last Admin: 12/03/17 03:10 Dose: 1,000 mg Sodium Chloride (Flush - Normal Saline) 10 ml IVF Q12HR [place] Last Admin: 12/02/17 21:25 Dose: 10 ml Sodium Chloride (Flush - Normal Saline) 10 ml IVF PRN PRN PRN Reason: Saline Flush MAR Reviewed: Yes Vital Signs and I&O: Vital Signs Temp 98.5 F 12/03/17 07:00 Pulse 78 12/03/17 07:09 Resp 16 12/03/17 07:07 BP 118/59 L 12/03/17 07:09 Pulse Ox 100 12/03/17 07:07 Intake & Output 12/02/17 12/03/17 12/03/17 18:59 06:59 18:59 Intake Total 87 0 Output Total 900 750 40 Balance -813 -750 -40 Weight 169 lb 1.513 oz Intake: Intake, IV Amount 87 Sodium Chloride 0.9% 1, 87 000 ml @ 75 mls/hr IV . [id number] [facility] Rx#:[id number] Oral 0 0 Output: Gastric Drainage 180 Output, Gaines 900 570 40 Other: Voiding Method Indwelling Catheter # Bowel Movements 0 Vent Setting: ON SIMV 16/450/40% peep5 Spontaneous Breathing Test: not done CCU Progress Note: Exam - Physical Exam Constitutional: NAD HEENT: PERRLA, sclera anicteric Neck: no JVD Cardiovascular: RRR Deviation from normal: 2/6 SY Respiratory: wheezes Gastrointestinal: soft, non-tender, no distention Musculoskeletal: no edema, pulses present Neurological: non-focal, moves all 4 limbs Deviation from normal: sedated Skin: no rash - Labs Result Diagrams: 12/03/17 03:57 12/03/17 03:57 Lab results: Laboratory Results - last 24 hr 12/03/17 12/03/17 03:57 03:57 WBC 10.1 RBC 4.39 Hgb 13.4 Hct 40.3 MCV 91.9 MCH 30.5 MCHC 33.2 RDW 12.9 Plt Count 210 MPV 8.0 Neutrophils % 87.9 H Lymphocytes % 10.7 L Monocytes % 1.2 Eosinophils % 0.1 Basophils % 0.1 Neutrophils # 8.9 H Lymphocytes # 1.1 L Monocytes # 0.1 L Eosinophils # 0.0 Basophils # 0.0 Sodium 140 Potassium 3.8 Chloride 109 H Carbon Dioxide 23 Anion Gap 12 BUN 11 Creatinine 0.67 Estimated GFR (MDRD) Greater than 90 Glucose 140 H Calcium 8.4 CCU Progress Note: A/P - Problems (1) Acute respiratory failure with hypoxia and hypercarbia Current Visit: Yes Status: Acute Code(s): J96.01 - ACUTE RESPIRATORY FAILURE WITH HYPOXIA; J96.02 - ACUTE RESPIRATORY FAILURE WITH HYPERCAPNIA (2) COPD exacerbation Current Visit: Yes Status: Acute Code(s): J44.1 - CHRONIC OBSTRUCTIVE PULMONARY DISEASE W (ACUTE) EXACERBATION (3) Vocal cord dysfunction Current Visit: Yes Status: Chronic Code(s): J38.3 - OTHER DISEASES OF VOCAL CORDS - Time Spent with Patient Time: 30 min CC time - Plan Plan: I would prefer to leave her intubated today. Continue steroids, nebs, antibiotics It is always difficult to tell in her how much of this is due to VCD vs her COPD. She has an underlying borderline personality disorder, in my opinion. Await ABG Will d/w her
[2017-12-03] MEDS: Famotidine/PF 20 mg/2ml Vial SLOW IVP SCH ×2 (08:01→20:53)
[2017-12-03] MEDS: Enoxaparin Sodium 40 MG/0.4 ML SYRINGE SC SCH (08:01)
[2017-12-03] MEDS: Azithromycin 250 MG in Sodium Chloride 0.9% 250 ML 250 ML IVPB SCH (09:10)
[2017-12-03 14:58] LABS: Actual Bicarbonate (HCO3a) 23.7 mEq/L (22-26); Base Excess (BEa) -0.3 mEq/L (0 (+/-) 2.5); CO2 Tension 36.9 mmHg (35.0-45.0); Hematocrit-ABG 40.1 % (36.0-47.0); Hemoglobin (Hb) 13.5 g/dL (12.0-16.0); O2 Tension (PaO2) 113.3 mmHg (80.0-100.0); pH, Arterial 7.43 (7.35-7.45)
[2017-12-03 14:59] LABS: ALV-art Gradient 127.775 (0-20); Calcium, Ionized 1.2 mmol/L (1.12-1.30); Puncture Site L.R.
--- NOTE | 2017-12-03 16:37 | PDOC.PN ---
- Subjective Encounter Start Date: 12/03/17 Encounter Start Time: 16:35 Patient seen and examined. No new complaints. No overnight events - Objective MAR Reviewed: Yes Vital Signs & Weight: Vital Signs (12 hours) Temp Pulse Resp BP Pulse Ox 12/03/17 16:00 16 12/03/17 15:56 82 110/62 12/03/17 15:54 86 16 99 12/03/17 14:00 18 12/03/17 11:54 19 12/03/17 11:07 99 114/69 12/03/17 11:06 99 16 100 12/03/17 11:00 99.0 F 12/03/17 09:58 18 12/03/17 07:53 17 12/03/17 07:30 98.5 F 78 20 100 12/03/17 07:09 78 118/59 L 12/03/17 07:07 78 16 100 12/03/17 07:00 98.5 F 12/03/17 06:00 16 Weight Admit Weight 169 lb Weight 169 lb 1.513 oz Most Recent Monitor Data Heart Rate from ECG 90 NIBP 118/62 NIBP BP-Mean 82 Respiration from ECG 16 SpO2 100 I&O: 12/02/17 12/03/17 12/04/17 06:59 06:59 06:59 Intake Total 1284.7 30 Output Total 1900 580 Balance -615.3 -550 Result Diagrams: 12/03/17 03:57 12/03/17 03:57 Phys Exam - Physical Examination intubated HEENT: moist MMs Neck: no JVD Respiratory: no rales Cardiovascular: no significant murmur Gastrointestinal: non-tender Musculoskeletal: pulses present sedated Dx/Plan (1) Methamphetamine abuse Code(s): F15.10 - OTHER STIMULANT ABUSE, UNCOMPLICATED Status: Acute (2) Acute respiratory failure with hypoxia and hypercarbia Code(s): J96.01 - ACUTE RESPIRATORY FAILURE WITH HYPOXIA; J96.02 - ACUTE RESPIRATORY FAILURE WITH HYPERCAPNIA Status: Acute (3) COPD exacerbation Code(s): J44.1 - CHRONIC OBSTRUCTIVE PULMONARY DISEASE W (ACUTE) EXACERBATION Status: Acute (4) Vocal cord dysfunction Code(s): J38.3 - OTHER DISEASES OF VOCAL CORDS Status: Acute Comment: by history.. - Plan * appreciate pulm help vent mx * Continue steroids, nebs, antibiotics
[2017-12-04] MEDS: Propofol 1,000 MG/100 ML VIAL IV PRN ×2 (02:43→07:31)
[2017-12-04 05:53] LABS: #Lymphocytes 0.9 thou/uL (1.20-3.40); #Monocytes 0.7 thou/uL (0.11-0.59); #Neutrophils 12.8 thou/uL (1.40-6.50); %Basophils 0.1 % (0.0-1.0); %Eosinophils 0.1 % (0.0-10.0); %Lymphocytes 6.1 % (21.0-51.0); %Neutrophils 88.6 % (42.0-75.0); Hemoglobin 12.2 g/dL (12.0-16.0); Mean Corpuscular HGB CONC 33.3 g/dL (32.0-36.0); Mean Corpuscular Hemoglobin 30.8 pg (27.0-31.0); Mean Corpuscular Volume 92.7 fl (81.0-99.0); Mean Platelet Volume 7.9 fL (7.4-10.4); Platelet Count 208 thou/uL (130-400); RBC Distribution Width 13.3 % (11.5-14.5); Red Blood Cell (RBC) Count 3.95 mill/uL (4.20-5.40); White Blood Cell (WBC) Count 14.4 thou/uL (4.8-10.8)
[2017-12-04 06:11] LABS: Anion Gap 10 mmol/L (10-20); BUN (Urea Nitrogen) 18 mg/dL (7.0-18.7); Calc. Creatinine Clearance 124 mL/min (70-130); Calcium 8.4 mg/dL (7.8-10.44); Carbon Dioxide 24 mmol/L (22-29); Chloride 112 mmol/L (98-107); Estimated GFR-MDRD Greater than 90; Glucose 128 mg/dL (70-105); Sodium 142 mmol/L (136-145)
[2017-12-04 06:54] LABS: Actual Bicarbonate (HCO3a) 24.1 mEq/L (22-26); Base Excess (BEa) -0.6 mEq/L (0 (+/-) 2.5); Calcium, Ionized 1.2 mmol/L (1.12-1.30); Hematocrit-ABG 35.8 % (36.0-47.0); Hemoglobin (Hb) 11.6 g/dL (12.0-16.0); O2 Tension (PaO2) 104.4 mmHg (80.0-100.0); Puncture Site RRA
[2017-12-04] MEDS: Sodium Chloride 0.9% 1,000 ML IV SCH (07:28)
[2017-12-04] MEDS ORDERED: DC Sedation Protocol FS ONE (08:23)
--- NOTE | 2017-12-04 08:27 | PDOC.PULCC ---
CCU Progress Note: Subj/Obj - Subjective Date: 12/04/17 Time: 08:26 Subjective: intubated and sedated - Objective Allergies/Adverse Reactions: Allergies Allergy/AdvReac Type Severity Reaction Status Date / Time Penicillins Allergy Intermediate Hives Verified 05/31/17 17:24 doxycycline Allergy Hives Verified 05/31/17 17:24 haloperidol [From Haldol] Allergy Verified 05/31/17 17:24 levofloxacin [From Levaquin] Allergy Hives Verified 05/31/17 17:24 loratadine [From Claritin] Allergy Rash Verified 05/31/17 17:24 morphine Allergy Verified 11/09/17 03:09 penicillin G Allergy Verified 05/31/17 17:24 Medications: Current Medications Albuterol/Ipratropium (Duoneb) 3 ml NEB [id number] [facility] Last Admin: 12/04/17 07:31 Dose: 3 ml Clonazepam (Klonopin) 1 mg PO TID [place] Enoxaparin Sodium (Lovenox) 40 mg SC 0900 [facility] Last Admin: 12/03/17 08:01 Dose: 40 mg Famotidine (Pepcid) 20 mg SLOW IVP Q12HR [facility] Last Admin: 12/03/17 20:53 Dose: 20 mg Hydralazine HCl (Apresoline) 10 mg SLOW IVP Q4H PRN PRN Reason: Systolic BP > 180 Midazolam HCl (Versed) 100 mls @ 0 mls/hr IVPB INF [place]; Titrate PRN Reason: Protocol Last Admin: 12/04/17 05:53 Dose: 100 mls Sodium Chloride (Normal Saline 0.9%) 1,000 mls @ 75 mls/hr IV .[id number] [facility] Stop: 12/04/17 17:52 Last Admin: 12/04/17 07:28 Dose: 1,000 mls Azithromycin 250 mg/ Sodium (Chloride) 250 mls @ 250 mls/hr IVPB Q24HR [facility] Last Admin: 12/03/17 09:10 Dose: 250 mls Lorazepam (Ativan) 1 mg SLOW IVP Q4H PRN PRN Reason: Anxiety/Agitation Last Admin: 12/03/17 11:53 Dose: 1 mg Methylprednisolone Sodium Succinate (Solu-Medrol) 20 mg IVP Q6HR [facility] Miscellaneous Medication (Dc Sedation Protocol) 1 each FS ONE ONE Stop: 12/04/17 08:24 Ondansetron HCl (Zofran) 4 mg IVP Q6H PRN PRN Reason: Nausea/Vomiting Propofol (Diprivan) 1,000 mg IV INF PRN; Protocol PRN Reason: TO ACHIEVE LONG SCORE 2-3 Stop: 01/01/18 20:07 Last Admin: 12/04/17 07:31 Dose: 1,000 mg Sodium Chloride (Flush - Normal Saline) 10 ml IVF Q12HR [place] Last Admin: 12/03/17 20:54 Dose: 10 ml Sodium Chloride (Flush - Normal Saline) 10 ml IVF PRN PRN PRN Reason: Saline Flush Last Admin: 12/03/17 11:08 Dose: 10 ml MAR Reviewed: Yes Vital Signs and I&O: Vital Signs Temp 99.3 F 12/04/17 05:00 Pulse 80 12/04/17 07:32 Resp 16 12/04/17 06:00 BP 116/58 L 12/04/17 07:32 Pulse Ox 100 12/03/17 20:00 Intake & Output 12/03/17 12/04/17 12/04/17 18:59 06:59 18:59 Intake Total 1117 701.2 Output Total 640 545 Balance 477 156.2 Weight 169 lb 1.513 oz Intake: Intake, IV Amount 1087 351.2 Midazolam HCl 100 ml @ 63 75.2 Titrate IVPB INF [facility] Rx#: [id number] Propofol 1000 mg (See 286 276 Protocol) IV INF PRN Rx#: [id number] Sodium Chloride 0.9% 1, 738 000 ml @ 75 mls/hr IV . [id number] [facility] Rx#:[id number] Tube Feeding 0 170 Tube Irrigant 30 180 Output: Output, Gaines 640 545 Other: Voiding Method Indwelling Catheter Indwelling Catheter Vent Setting: simv 14/450/peep5/ps10/35% Spontaneous Breathing Test: done (passed) CCU Progress Note: Exam - Physical Exam Constitutional: NAD HEENT: PERRLA, moist MMs Neck: no JVD Cardiovascular: RRR Respiratory: clear to auscultation bilaterally Gastrointestinal: soft, non-tender Musculoskeletal: no edema Neurological: non-focal Skin: no rash - Labs Result Diagrams: 12/04/17 05:02 12/04/17 05:02 Lab results: Laboratory Results - last 24 hr 12/03/17 12/04/17 12/04/17 07:10 05:02 05:02 WBC 14.4 H RBC 3.95 L Hgb 12.2 Hct 36.6 MCV 92.7 MCH 30.8 MCHC 33.3 RDW 13.3 Plt Count 208 MPV 7.9 Neutrophils % 88.6 H Lymphocytes % 6.1 L Monocytes % 5.0 Eosinophils % 0.1 Basophils % 0.1 Neutrophils # 12.8 H Lymphocytes # 0.9 L Monocytes # 0.7 H Eosinophils # 0.0 Basophils # 0.0 Specimen Type ARTERIAL Puncture Site L.R. Bicarbonate Actual 23.7 ABG pH 7.43 ABG pCO2 36.9 ABG pO2 113.3 H ABG O2 Sat Calc/Venancio 98.4 ABG O2 Content 18.6 ABG Base Excess -0.3 ABG Hematocrit 40.1 ABG Hemoglobin 13.5 ABG Oxyhemoglobin 96.8 ABG Carboxyhemoglobin 1.1 ABG Methemoglobin 0.5 ABG Deoxyhemoglobin 1.6 Dixon Test POSITIVE A-a O2 Gradient 127.775 H Sodium 143 142 Potassium 3.5 L 4.0 Chloride 106 112 H Ionized Calcium 1.2 Mode of Support PSIMV Mechanical Rate Inspired O2 40 Tidal Volume 450 Pressure Support 10 PEEP or CPAP 5.0 Carbon Dioxide 24 Anion Gap 10 BUN 18 Creatinine 0.67 Estimated GFR (MDRD) Greater than 90 Glucose 128 H Calcium 8.4 12/04/17 06:48 WBC RBC Hgb Hct MCV MCH MCHC RDW Plt Count MPV Neutrophils % Lymphocytes % Monocytes % Eosinophils % Basophils % Neutrophils # Lymphocytes # Monocytes # Eosinophils # Basophils # Specimen Type ARTERIAL Puncture Site RRA Bicarbonate Actual 24.1 ABG pH 7.40 ABG pCO2 40.0 ABG pO2 104.4 H ABG O2 Sat Calc/Venancio 98.0 ABG O2 Content 15.9 L ABG Base Excess -0.6 ABG Hematocrit 35.8 L ABG Hemoglobin 11.6 L ABG Oxyhemoglobin 96.4 ABG Carboxyhemoglobin 1.0 ABG Methemoglobin 0.6 ABG Deoxyhemoglobin Dixon Test POSITIVE A-a O2 Gradient 93.400 H Sodium 146 Potassium 4.1 Chloride 104 Ionized Calcium 1.2 Mode of Support SIMV/PS Mechanical Rate 16 Inspired O2 35 Tidal Volume 450 Pressure Support 10 PEEP or CPAP 5.0 Carbon Dioxide Anion Gap BUN Creatinine Estimated GFR (MDRD) Glucose Calcium CCU Progress Note: A/P - Problems (1) Acute respiratory failure with hypoxia and hypercarbia Current Visit: Yes Status: Acute Code(s): J96.01 - ACUTE RESPIRATORY FAILURE WITH HYPOXIA; J96.02 - ACUTE RESPIRATORY FAILURE WITH HYPERCAPNIA (2) COPD exacerbation Current Visit: Yes Status: Acute Code(s): J44.1 - CHRONIC OBSTRUCTIVE PULMONARY DISEASE W (ACUTE) EXACERBATION (3) Vocal cord dysfunction Current Visit: Yes Status: Chronic Code(s): J38.3 - OTHER DISEASES OF VOCAL CORDS - Time Spent with Patient Time: 30 min cc time - Plan Plan: dc iv sedation extubate decrease steroid dose maybe able to go to floor later today
[2017-12-04] MEDS: Azithromycin 250 MG in Sodium Chloride 0.9% 250 ML 250 ML IVPB SCH (08:33)
[2017-12-04] MEDS: clonazePAM 0.5 MG TAB PO SCH ×3 (09:02→21:18)
[2017-12-04] MEDS: Enoxaparin Sodium 40 MG/0.4 ML SYRINGE SC SCH (09:02)
[2017-12-04] MEDS: Famotidine/PF 20 mg/2ml Vial SLOW IVP SCH ×2 (09:02→21:17)
[2017-12-04] MEDS: Lorazepam 2 MG/ML VIAL SLOW IVP PRN (12:21)
--- NOTE | 2017-12-04 14:30 | PDOC.PN ---
- Subjective Encounter Start Date: 12/04/17 Encounter Start Time: 08:30 -: non-verbal, old records requested/rev Pt orally intubated, sedation stopped, waking up. Planning to extubate soon. Admitted with Acute hypoxemic and hypercapneic respiratory failure, intubated. Pulm following no f/C,no N/V/D/C or other acute events overnight. at bedside and questions answered ROS not obtainable due to intubated and sedation status - Objective Resuscitation Status: FULL MAR Reviewed: Yes Vital Signs & Weight: Vital Signs (12 hours) Temp Pulse Resp BP Pulse Ox 12/04/17 10:27 84 20 12/04/17 09:14 79 22 H 100 12/04/17 08:00 99.1 F 84 16 100 12/04/17 07:32 80 116/58 L 12/04/17 06:00 16 12/04/17 05:00 99.3 F 12/04/17 04:00 16 Weight Admit Weight 169 lb Weight 169 lb 1.513 oz Most Recent Monitor Data Heart Rate from ECG 64 NIBP 128/64 NIBP BP-Mean 83 Respiration from ECG 15 SpO2 100 I&O: 12/03/17 12/04/17 12/05/17 06:59 06:59 06:59 Intake Total 1284.7 1818.2 Output Total 1900 1185 730 Balance -615.3 633.2 -730 Result Diagrams: 12/04/17 05:02 12/04/17 05:02 Radiology Reviewed by me: Yes EKG Reviewed by me: Yes Phys Exam - Physical Examination Constitutional: NAD HEENT: PERRLA, moist MMs, sclera anicteric, oral pharynx no lesions orally intubated Neck: no nodes, no JVD, supple, full ROM Respiratory: no wheezing, no rales, no rhonchi, clear to auscultation bilateral Cardiovascular: RRR, no significant murmur, no rub Gastrointestinal: soft, non-tender, no distention, positive bowel sounds Musculoskeletal: no edema, pulses present Neurological: non-focal, normal sensation, moves all 4 limbs Lymphatic: no nodes Skin: no rash, normal turgor, cap refill <2 seconds Dx/Plan (1) Acute respiratory failure with hypoxia and hypercarbia Code(s): J96.01 - ACUTE RESPIRATORY FAILURE WITH HYPOXIA; J96.02 - ACUTE RESPIRATORY FAILURE WITH HYPERCAPNIA Status: Acute Comment: extubate today, follow up on puolm recommendations (2) COPD exacerbation Code(s): J44.1 - CHRONIC OBSTRUCTIVE PULMONARY DISEASE W (ACUTE) EXACERBATION Status: Acute Comment: improved. Steroids, nebs, O2, abx (3) Methamphetamine abuse Code(s): F15.10 - OTHER STIMULANT ABUSE, UNCOMPLICATED Status: Chronic (4) Vocal cord dysfunction Code(s): J38.3 - OTHER DISEASES OF VOCAL CORDS Status: Chronic (5) COPD (chronic obstructive pulmonary disease) Status: Chronic Qualifiers: COPD type: COPD with acute exacerbation Qualified Code(s): J44.1 - Chronic obstructive pulmonary disease with (acute) exacerbation (6) Anxiety and depression Code(s): F41.9 - ANXIETY DISORDER, UNSPECIFIED; F32.9 - MAJOR DEPRESSIVE DISORDER, SINGLE EPISODE, UNSPECIFIED Status: Chronic (7) Fibromyalgia Status: Chronic (8) Tobacco dependence Code(s): F17.200 - NICOTINE DEPENDENCE, UNSPECIFIED, UNCOMPLICATED Status: Chronic - Plan cont current plan of care, plan discussed w/ family, continue antibiotics, PT/OT , respiratory therapy, out of bed/ambulate * .
[2017-12-04] MEDS ORDERED: ALPRAZolam 0.25 MG TAB PO PRN (17:14)
[2017-12-04] MEDS: Pramipexole Di-HCl 1 MG TAB PO SCH (21:18)
[2017-12-05 05:04] LABS: #Lymphocytes 1.4 thou/uL (1.20-3.40); #Monocytes 0.9 thou/uL (0.11-0.59); #Neutrophils 9.4 thou/uL (1.40-6.50); %Basophils 0.1 % (0.0-1.0); %Eosinophils 0.1 % (0.0-10.0); %Neutrophils 79.8 % (42.0-75.0); Hemoglobin 12.1 g/dL (12.0-16.0); Mean Corpuscular HGB CONC 32.4 g/dL (32.0-36.0); Mean Corpuscular Hemoglobin 29.9 pg (27.0-31.0); Mean Corpuscular Volume 92.1 fl (81.0-99.0); Platelet Count 206 thou/uL (130-400); RBC Distribution Width 13.3 % (11.5-14.5); Red Blood Cell (RBC) Count 4.07 mill/uL (4.20-5.40); White Blood Cell (WBC) Count 11.8 thou/uL (4.8-10.8)
[2017-12-05 05:20] LABS: Anion Gap 10 mmol/L (10-20); BUN (Urea Nitrogen) 17 mg/dL (7.0-18.7); Calc. Creatinine Clearance 124 mL/min (70-130); Calcium 9.1 mg/dL (7.8-10.44); Carbon Dioxide 28 mmol/L (22-29); Chloride 108 mmol/L (98-107); Estimated GFR-MDRD Greater than 90; Glucose 105 mg/dL (70-105); Potassium 4.1 mmol/L (3.5-5.1); Sodium 142 mmol/L (136-145)
--- NOTE | 2017-12-05 08:13 | PRG ---
DATE OF SERVICE: 12/05/2017 SUBJECTIVE: She feels better today. She is wanting to go home. OBJECTIVE: VITAL SIGNS: On exam, temperature is 98.0, pulse 85, blood pressure 157/68. A 24 hour intake 2288, output 1525. HEENT: Unremarkable. NECK: No JVD. CHEST: She has some wheezing around the neck area, otherwise clear. CARDIAC: S1 and S2 regular. ABDOMEN: Soft. EXTREMITIES: No edema. LABORATORY DATA: Sodium 142, potassium 4.1, chloride 108, CO2 28, BUN 17, creatinine 0.6, glucose 10 5. White blood cell count 11.8, hematocrit 37, platelet count 206. ASSESSMENT: 1. Chronic obstructive pulmonary disease with exacerbation. 2. Vocal cord dysfunction. 3. Status post acute respiratory failure requiring mechanical ventilation. PLAN: The patient will be transferred to the medical floor. She will be on steroids for 1 more day. It is anticipated that she can go home tomorrow.
[2017-12-05] MEDS: Enoxaparin Sodium 40 MG/0.4 ML SYRINGE SC SCH (08:59)
[2017-12-05] MEDS: clonazePAM 0.5 MG TAB PO SCH ×3 (09:00→21:48)
[2017-12-05] MEDS: Azithromycin 250 MG TAB PO SCH (09:00)
--- NOTE | 2017-12-05 12:29 | PDOC.PN ---
- Subjective Encounter Start Date: 12/05/17 Encounter Start Time: 10:15 Pt extubated yesterday, transferred to floor this morning. Case discussed with Dr Per Grey No F/C, no N/V/D/C. Pt convinced her neck fusion hardware is extruding and causing neck muscle spasm. [facility] has dealt with her so often that they have fired her from their practice. 10 point ROS performed and neg for all systems except as above - Objective Resuscitation Status: full MAR Reviewed: Yes Vital Signs & Weight: Vital Signs (12 hours) Temp Pulse Resp BP Pulse Ox 12/05/17 10:53 78 18 98 12/05/17 10:10 98.4 F 85 20 12/05/17 09:40 98.4 F 85 20 126/70 97 12/05/17 08:00 98.3 F 93 23 H 97 12/05/17 07:20 89 16 12/05/17 06:00 98.0 F 12/05/17 04:00 98.0 F 12/05/17 01:00 98.2 F Weight Admit Weight 169 lb Weight 169 lb 1.513 oz Most Recent Monitor Data Heart Rate from ECG 98 NIBP 123/88 NIBP BP-Mean 106 Respiration from ECG 21 SpO2 98 I&O: 12/04/17 12/05/17 12/06/17 06:59 06:59 06:59 Intake Total 1818.2 2288.7 340 Output Total 1185 1525 Balance 633.2 763.7 340 Result Diagrams: 12/05/17 04:18 12/05/17 04:18 Radiology Reviewed by me: Yes EKG Reviewed by me: Yes Phys Exam - Physical Examination Constitutional: NAD HEENT: PERRLA, moist MMs, sclera anicteric, oral pharynx no lesions Neck: no nodes, no JVD, supple, full ROM Respiratory: no wheezing, no rales, no rhonchi, clear to auscultation bilateral Cardiovascular: RRR, no significant murmur, no rub Gastrointestinal: soft, non-tender, no distention, positive bowel sounds Musculoskeletal: no edema, pulses present Neurological: non-focal, normal sensation, moves all 4 limbs Lymphatic: no nodes Psychiatric: normal affect, A&O x 3 Skin: no rash, normal turgor, cap refill <2 seconds Dx/Plan (1) Acute respiratory failure with hypoxia and hypercarbia Code(s): J96.01 - ACUTE RESPIRATORY FAILURE WITH HYPOXIA; J96.02 - ACUTE RESPIRATORY FAILURE WITH HYPERCAPNIA Status: Acute Comment: extubated 12/04, follow up on puolm recommendations (2) COPD exacerbation Code(s): J44.1 - CHRONIC OBSTRUCTIVE PULMONARY DISEASE W (ACUTE) EXACERBATION Status: Acute Comment: improved. Steroids, nebs, O2, abx (3) Methamphetamine abuse Code(s): F15.10 - OTHER STIMULANT ABUSE, UNCOMPLICATED Status: Chronic Comment: pt denies tkaing speed or meth, denies legal stimulants for ADHD (4) Vocal cord dysfunction Code(s): J38.3 - OTHER DISEASES OF VOCAL CORDS Status: Chronic Comment: as above (5) COPD (chronic obstructive pulmonary disease) Status: Chronic Qualifiers: COPD type: COPD with acute exacerbation Qualified Code(s): J44.1 - Chronic obstructive pulmonary disease with (acute) exacerbation (6) Anxiety and depression Code(s): F41.9 - ANXIETY DISORDER, UNSPECIFIED; F32.9 - MAJOR DEPRESSIVE DISORDER, SINGLE EPISODE, UNSPECIFIED Status: Chronic (7) Fibromyalgia Status: Chronic (8) Tobacco dependence Code(s): F17.200 - NICOTINE DEPENDENCE, UNSPECIFIED, UNCOMPLICATED Status: Chronic - Plan cont current plan of care, PT/OT, respiratory therapy, out of bed/ambulate * .
[2017-12-05] MEDS ORDERED: Ondansetron ODT 4 MG TAB PO PRN (17:59)
[2017-12-05] MEDS: Pramipexole Di-HCl 1 MG TAB PO SCH (21:48)
[2017-12-05] MEDS: Lorazepam 2 MG/ML VIAL SLOW IVP PRN (22:28)
[2017-12-06] MEDS: Azithromycin 250 MG TAB PO SCH (09:07)
[2017-12-06] MEDS: clonazePAM 0.5 MG TAB PO SCH (09:07)
[2017-12-06] MEDS: Enoxaparin Sodium 40 MG/0.4 ML SYRINGE SC SCH (09:07)
--- NOTE | 2017-12-06 09:26 | PDOC.PULPN ---
Progress Note: Subj/Obj - Subjective Date: 12/06/17 Time: 09:25 Narrative: Feels back to normal - ROS All systems: reviewed and no additional remarkable complaints except as stated Respiratory: cough - Objective Allergies/Adverse Reactions: Allergies Allergy/AdvReac Type Severity Reaction Status Date / Time Penicillins Allergy Intermediate Hives Verified 05/31/17 17:24 doxycycline Allergy Hives Verified 05/31/17 17:24 haloperidol [From Haldol] Allergy Verified 05/31/17 17:24 levofloxacin [From Levaquin] Allergy Hives Verified 05/31/17 17:24 loratadine [From Claritin] Allergy Rash Verified 05/31/17 17:24 morphine Allergy Verified 11/09/17 03:09 penicillin G Allergy Verified 05/31/17 17:24 Medications: Current Medications Albuterol/Ipratropium (Duoneb) 3 ml NEB [id number] [facility] Last Admin: 12/06/17 07:25 Dose: 3 ml Alprazolam (Xanax) 0.25 mg PO HSPRN PRN PRN Reason: Anxiety Last Admin: 12/04/17 21:19 Dose: 0.25 mg Azithromycin (Zithromax) 250 mg PO DAILY [facility] Stop: 12/08/17 09:01 Last Admin: 12/06/17 09:07 Dose: 250 mg Clonazepam (Klonopin) 1 mg PO TID [facility] Last Admin: 12/06/17 09:07 Dose: 1 mg Enoxaparin Sodium (Lovenox) 40 mg SC 0900 [facility] Last Admin: 12/06/17 09:07 Dose: 40 mg Hydralazine HCl (Apresoline) 10 mg SLOW IVP Q4H PRN PRN Reason: Systolic BP > 180 Lorazepam (Ativan) 1 mg SLOW IVP Q4H PRN PRN Reason: Anxiety/Agitation Last Admin: 12/05/17 22:28 Dose: 1 mg Ondansetron HCl (Zofran Odt) 4 mg PO Q4H PRN PRN Reason: Nausea/Vomiting Last Admin: 12/05/17 18:02 Dose: 4 mg Pramipexole Dihydrochloride (Mirapex) 1.5 mg PO HS [facility] Last Admin: 12/05/17 21:48 Dose: 1.5 mg MAR Reviewed: Yes Vital Signs: Vital Signs Temp 98.5 F 01/19/18 07:37 Pulse 77 12/06/17 07:37 Resp 16 12/06/17 07:37 BP 138/78 12/06/17 07:37 Pulse Ox 96 12/06/17 07:37 Intake & Output 12/05/17 12/06/17 12/06/17 18:59 06:59 18:59 Intake Total 340 Balance 340 Intake: Oral 340 Other: Voiding Method Toilet Toilet Progress Note: Exam - Physical Exam Constitutional: NAD HEENT: PERRLA, sclera anicteric Neck: no nodes, no JVD Cardiovascular: RRR, no significant murmur, no rub Respiratory: clear to auscultation bilaterally Gastrointestinal: soft, non-tender Musculoskeletal: no edema, pulses present Neurological: non-focal Lymphatic: no nodes Psychiatric: normal affect, A&O x 3 Skin: no rash Progress Note: Data - Labs Result Diagrams: 12/05/17 04:18 12/05/17 04:18 Lab results: Laboratory Results 12/05/17 12/05/17 04:18 04:18 WBC 11.8 H RBC 4.07 L Hgb 12.1 Hct 37.4 MCV 92.1 MCH 29.9 MCHC 32.4 RDW 13.3 Plt Count 206 MPV 8.0 Neutrophils % 79.8 H Lymphocytes % 12.0 L Monocytes % 8.0 Eosinophils % 0.1 Basophils % 0.1 Neutrophils # 9.4 H Lymphocytes # 1.4 Monocytes # 0.9 H Eosinophils # 0.0 Basophils # 0.0 Sodium 142 Potassium 4.1 Chloride 108 H Carbon Dioxide 28 Anion Gap 10 BUN 17 Creatinine 0.67 Estimated GFR (MDRD) Greater than 90 Glucose 105 Calcium 9.1 Progress Note: A/P - Problems (1) Acute respiratory failure with hypoxia and hypercarbia Current Visit: Yes Status: Acute Code(s): J96.01 - ACUTE RESPIRATORY FAILURE WITH HYPOXIA; J96.02 - ACUTE RESPIRATORY FAILURE WITH HYPERCAPNIA (2) COPD exacerbation Current Visit: Yes Status: Acute Code(s): J44.1 - CHRONIC OBSTRUCTIVE PULMONARY DISEASE W (ACUTE) EXACERBATION (3) Vocal cord dysfunction Current Visit: Yes Status: Chronic Code(s): J38.3 - OTHER DISEASES OF VOCAL CORDS - Plan Plan: home needs prednisone 20mg bid for 5days then stop smoking cessation advised I think the meth test was a false positive
[2017-12-06] MEDS ORDERED: predniSONE 20 MG TAB PO SCH ×2 (10:30→21:00)
[2017-12-06 10:33] VITALS: BP 128/80; TEMP 98.3
--- NOTE | 2017-12-06 17:48 | DIS ---
DATE OF ADMISSION: 12/02/2017 DATE OF DISCHARGE: 12/06/2017 DISCHARGE DIAGNOSES: 1. Acute hypoxic respiratory failure. 2. Acute exacerbation of chronic obstructive pulmonary disease. 3. Acute hypoxemic and hypercapnic respiratory failure. 4. Vocal cord dysfunction. 5. Ongoing tobacco abuse. 6. Possible amphetamine abuse. CONSULTATIONS: Pulmonary Critical Care on 12/02/[address] Miguel Turner, followed up by Dr. Per etienne. PROCEDURES: 1. Endotracheal intubation on admission. 2. Endotracheal extubation the following day. HISTORY OF PRESENT ILLNESS: Ms. Rodriguez is a 47-year-old white female with the above history, who wa s in the emergency department on 12/02/2017 with shortness of breath. She was found to be in respira tory extremis, was subsequently intubated. She was given sedation with propofol, so we are unable to give much of a history. Per the ER note, she does have a history remarkable for asthma and COPD; re stless legs; anxiety; depression; fibromyalgia; vocal cord dysfunction; and history of left upper lob e cavitary lesion, seems to be slowly improving. We were called for admission. HOSPITAL COURSE: The patient was seen and examined by Dr. Balderas on 12/02/2017. The patient w as admitted to the critical care unit on ventilator. Pulmonary Critical Care was consulted for venti lator management. She was given IV steroids and nebulizer treatments. Antibiotics were held due to multiple allergies and sequential compression devices and IV Pepcid were ordered for prophylaxis. Overnight on 12/02/2017 to 12/03/2017, the patient improved clinically. Dr. Grey took over from a pulmonary perspective. She remained mechanically ventilated through the day and negative fluid jamee nce was achieved. On 12/04/2017, I took the case over. She was being awakened, extubated, and did well. She was in e ICU overnight and subsequently transferred to the floor on 12/05/2017. On 12/05/2017 to 12/06/2017, she improved. She was breathing well, able to go downstairs with her hu sband without any difficulty and was stable for discharge with outpatient followup. PHYSICAL EXAMINATION: The patient was seen and examined on the day of discharge. Discharge plan and disposition were discussed with the patient [id number] at the bedside. DISCHARGE MEDICATIONS: 1. Vivarin 400 mg p.o. q.a.m. 2. Xanax 0.25 mg p.o. b.i.d. p.r.n. 3. Melatonin 2.5 mg p.o. at bedtime p.r.n. insomnia. 4. DuoNeb as needed. 5. Estrace 2 mg p.o. q.a.m. 6. Duloxetine 30 mg p.o. daily. 7. Flexeril 10 mg p.o. at bedtime. 8. Tylenol Sinus Severe caplets 2 tabs p.o. b.i.d. 9. Klonopin 1 mg p.o. b.i.d. p.r.n. anxiety. 10. Mirapex 4 mg p.o. at bedtime. 11. Zyprexa 5 mg p.o. at bedtime. 10. Nicotine patch daily. 11. Tramadol 50 mg p.o. at bedtime. 12. Medrol Dosepak to complete was stopped and prednisone 40 mg p.o. daily was prescribed, to decrea se by 10 mg every third day until weaned off. FOLLOWUP APPOINTMENT: Primary care physician, Zander, within a week. DISCHARGE DIET: Heart healthy recommended. DISCHARGE ACTIVITY: Per cardiopulmonary limits. Tobacco counseling was given. The patient was offe red alternatives such as nicotine patch and those were prescribed. DISCHARGE CONDITION: Good. DISPOSITION: To be discharged home via private vehicle. Of note, the patient did deny using methamphetamines. The patient was nevertheless counseled to judy mcconnell
== END 2017-12-06 10:39 | disposition home or self-care (01) | DRG 208 ==
LOC: ERS 12:22 → CCU 16:21 → T4-A 12-05 09:33
PROVIDERS: ADMIT Internal Medicine; ATTEND Internal Medicine
PROC: 5A1935Z Respiratory Ventilation, Less than 24 Consecutive Hours (ICD-10-PCS; principal; 2017-12-02)
PROC: 0BH17EZ Insertion of Endotracheal Airway into Trachea, Via Natural or Artificial Opening (ICD-10-PCS; 2017-12-02)
PROC: 0BP1XDZ Removal of Intraluminal Device from Trachea, External Approach (ICD-10-PCS; 2017-12-03)
DX: J96.01 Acute respiratory failure with hypoxia (principal); J44.1 Chronic obstructive pulmonary disease with (acute) exacerbation; J45.901 Unspecified asthma with (acute) exacerbation; J38.3 Other diseases of vocal cords; F15.10 Other stimulant abuse, uncomplicated; M79.7 Fibromyalgia; F17.210 Nicotine dependence, cigarettes, uncomplicated; J96.02 Acute respiratory failure with hypercapnia; Z88.1 Allergy status to other antibiotic agents; Z88.5 Allergy status to narcotic agent; Z88.0 Allergy status to penicillin; Z88.8 Allergy status to other drugs, medicaments and biological substances
CPT/HCPCS: 31500; 36415; 51702; 71045; 80048; 80306; 81003; 81015; 82550; 82553; 82805; 83690; 83735; 83880; 84484; 84703; 85025; 85610; 85730; 87040; 87070; 87077; 87186; 87205; 93005; 94002; 94003; 94640; 96365; 96366; 96375; 96376; A4216; J0456; J1650; J2060; J2405; J2704; J2920; J2930; J7050; J7506; J7611; J7620; Q0162; S0028

== ENCOUNTER 2017-12-30 14:47 | Emergency (ER) | payer BC ==
[2017-12-30] MEDS ORDERED: Dexamethasone 10 MG/ML VIAL ONE (15:24)
--- NOTE | 2017-12-30 15:47 | RAD ---
CHEST 1 VIEW: Date: 12/30/17 HISTORY: Cough. COMPARISON: 12/02/17. FINDINGS: Cardiaca silhouette is magnified by projection. Pulmonary vasculature is unremarkable. Mediastinum is midline. There is no lobar consolidation or evidence of pneumothorax. residential monitor leads overlie the chest. IMPRESSION: No active cardiopulmonary abnormalities are demonstrated. POS: [facility]
--- NOTE | 2017-12-30 15:48 | RAD ---
NECK SOFT TISSUES 2 VIEWS: HISTORY: Dyspnea. Neck pain. FINDINGS: Epiglottis is within normal limits. Airway is patent. Operative hardware of the cervical spine obsc ures the soft tissues on the frontal view. There is prominent calcification of the thyroid cartilage IMPRESSION: No significant abnormalities are demonstrated. POS: [facility]
[2017-12-30] MEDS ORDERED: Magnesium Sulfate 2 GM/100 ML BAG ONE ×2 (17:08→17:12)
[2017-12-30] MEDS ORDERED: diphenhydrAMINE 25 MG CAP ONE (17:19)
== END 2017-12-30 18:25 | disposition home or self-care (01) ==
LOC: ERS 14:47
DX: J44.1 Chronic obstructive pulmonary disease with (acute) exacerbation (principal); M54.2 Cervicalgia; F17.210 Nicotine dependence, cigarettes, uncomplicated; F41.9 Anxiety disorder, unspecified; F32.9 Major depressive disorder, single episode, unspecified
CPT/HCPCS: 70360; 71045; 94640; 96365; 96375; J1100; J3475; J7620

== ENCOUNTER 2018-01-22 12:05 | Outpatient (CLI) | payer BC ==
[~2018-01-22 12:05] MED LIST: Iopamidol 370 76% 100 ML VIAL ONE
--- NOTE | 2018-01-22 14:25 | CT ---
CT CHEST PERFORMED WITH INTRAVENOUS CONTRAST ENHANCEMENT: HISTORY: Followup of lung nodule. COMPARISON: CT examination from 10/22/2017 and a 07/30/2017 exam. FINDINGS: The lungs are clear of any infiltrative process. A tiny focus of nodularity in the right upper lobe, axial image 17, is stable, measuring 2 to 3 mm, and may just represent some scar. The pleural-based area of nodularity within the left upper lobe, which, on the 07/30/2017 study, had more a thin-blair d cavitary appearance, now has more of a soft tissue component. The cavitary component is no longer present. It is stable as compared to the 10/22/2017 exam. It may just represent some residual scar. It measures 7 to 8 mm in size. No additional or new nodules are seen. There are small paratracheal nodes and a nodule in the anterior mediastinum, possibly residual thymic tissue. This is also a stable appearance as compared to the prior study. The visualized liver parenchyma shows suggestion of fatty change. No focal abnormalities. IMPRESSION: 1. Tiny questionable area of nodularity in the right upper lobe, which I believe this is more relate d to some scar, stable. The pleural-based nodular area, measuring 8 mm in size, in the left upper lo be, is also stable, as compared to the most recent prior examination. It no longer has a cavitary co mponent. I would recommend additional six-month followup of this density. 2. Mediastinal lymph nodes are unchanged. There is an anterior mediastinal soft tissue density seen in the expected location of the thymus. This could represent lymph node or residual thymic tissue. It does appear stable, as compared to the previous studies. POS: [facility]
== END 2018-01-22 12:06 | disposition home or self-care (01) ==
LOC: CT 12:05
PROVIDERS: ATTEND Internal Medicine Critical Care Medicine
DX: R91.1 Solitary pulmonary nodule (principal); J44.9 Chronic obstructive pulmonary disease, unspecified; J98.59 Other diseases of mediastinum, not elsewhere classified
CPT/HCPCS: 71260

== ENCOUNTER 2018-04-12 00:53 | Emergency (ER) | payer BC, OTHER ==
[2018-04-12] MEDS ORDERED: Morphine 4 MG/ML VIAL ONE ×2 (03:08→04:49)
[2018-04-12] MEDS ORDERED: diphenhydrAMINE 50 MG/ML VIAL ONE ×2 (03:20→04:49)
[2018-04-12] MEDS ORDERED: Ketorolac Tromethamine 30 MG/ML VIAL ONE (05:44)
--- NOTE | 2018-04-12 09:11 | RAD ---
THREE VIEWS LUMBAR SPINE: HISTORY: Pain. COMPARISON: None. FINDINGS: [id number] vertebral bodies. Vertebral body height is maintained. No fracture. Mild loss of disk space height and osteophyte formation at L2-L3. There is 3 mm anterolisthesis of L4 upon L5. M ild degenerative change of the posterior elements. Possible L5 pars defects. Evaluation is limited on this exam. IMPRESSION: Degenerative changes of the lower lumbar spine as above. Nonemergent MRI may be beneficial. POS: [facility]
--- NOTE | 2018-04-12 09:51 | CT ---
PRELIMINARY REPORT/[facility]/EMERGENTY AFTER-HOURS PROCEDURE CT Lumbar Spine Without Intravenous Contrast CLINICAL HISTORY: 47 years old, female; Pain; Low back pain; Patient HX: F48 presents to ed C/O lower back pain that be shad acutely today after pt bent over and coughed. Pt denies HX of chronic back pain. Pt denies trauma or fatmata. Pt denies numbness in groin, pt denies urinary or bowel incontinence. Pt has no radiation of pain distally. Pain is worse with any movement. TECHNIQUE: Axial computed tomography images of the lumbar spine without intravenous contrast. Coronal and sagitt al reformatted images were created and reviewed. COMPARISON: No relevant prior studies available. FINDINGS: Vertebrae: Mild diffuse spondylosis with mild disc bulges and disc space loss most prominent at L2-L3 . Moderate L4-S1 facet arthrosis. Mild grade 1 anterolisthesis of L4. No fracture or subluxation. Discs/spinal canal/neural foramina: See above. Soft tissues: Unremarkable. Other findings: Suspected 4.7 x 3 cm right ovarian cyst. IMPRESSION: No acute findings. Thank you for allowing us to participate in the care of your patient. Dictated and Authenticated by: Charli Gomez MD 04/12/2018 5:34 AM Central Time ([place] & [place]) FINAL REPORT CT LUMBAR SPINE WITHOUT CONTRAST: HISTORY: Low back pain, acutely today. The symptoms occurred after the patient bent over and coughed. COMPARISON: None. TECHNIQUE: Lumbar spine CT is performed without contrast. Reformatted images are submitted for interpretation. FINDINGS: No retroperitoneal mass, lymphadenopathy, or hematoma. Diverticulosis of visualized colon is noted. No diverticulitis. Hypodensity in the right hemipelvis is incompletely evaluated. Vertebral body height is maintained. There is no fracture. There is anterolisthesis of L4 upon L5. No high-grade central canal stenosis or high-grade foraminal narrowing. Evaluation is limited by kristin huang. IMPRESSION: This report is in agreement with the preliminary report by [facility]. POS: [facility]
== END 2018-04-12 06:13 | disposition home or self-care (01) ==
LOC: ERS 00:53
DX: M47.9 Spondylosis, unspecified (principal); J45.909 Unspecified asthma, uncomplicated; F41.9 Anxiety disorder, unspecified; F32.9 Major depressive disorder, single episode, unspecified; F17.210 Nicotine dependence, cigarettes, uncomplicated; Z79.899 Other long term (current) drug therapy
CPT/HCPCS: 72100; 72131; 96361; 96374; 96375; 96376; J1200; J1885; J2270; J7620

== ENCOUNTER 2018-04-19 10:15 | Inpatient (IN) | payer BC ==
[2018-04-19] MEDS ORDERED: Ibuprofen 800 MG TAB ONE (10:27)
[2018-04-19] MEDS ORDERED: Water For Inject, Bacteriostat 30 ML ONE (10:46)
[2018-04-19] MEDS ORDERED: methylPREDNISolone Sod Succ/PF 125 MG/2 ML VIAL ONE (10:46)
--- NOTE | 2018-04-19 10:58 | RAD ---
UPRIGHT PORTABLE CHEST 1 VIEW: Date: 04/19/18 HISTORY: 47-year-old female with history of chest pain, shortness of breath, and headache. COMPARISON: 12/30/17. FINDINGS: Monitor leads overlie the chest. Heart size within normal limits. Anterior cervical fusion changes ar e noted at the cervicothoracic junction. There are some minimal patchy increased markings bilaterally , but these appear stable when compared to the prior study. IMPRESSION: Stable increased markings bilaterally. No confluent pneumonia, pleural effusion, or acute edema. POS: [facility]
[2018-04-19 11:40] LABS: Bilirubin Negative (Negative); Blood, Urine Trace (Negative); Clarity CLEAR (Clear); Glucose, Urine (Dipstick) Negative (Negative); Leukocyte Negative (Negative); Nitrite Negative (Negative); Protein, Urine (Dipstick) Negative (Neg-Trace); Specific Gravity, Urine 1.014 (1.002-1.036); Urobilinogen 0.2 mg/dL (0.2-1.0)
[2018-04-19 11:43] LABS: Bacteria/HPF None Seen HPF (None Seen); Hyaline Casts/LPF 0-3 HYALINE CAST LPF (0-3 Hyaline); Pathc Cast-AUWi Flag 0.43 (0-2.49); RBC/HPF 0-3 HPF (0-3); WBC/HPF None Seen HPF (0-3)
[2018-04-19 11:53] LABS: ALT (SGPT) 16 U/L (8-55); AST (SGOT) 20 U/L (5-34); Alkaline Phosphatase 66 U/L (40-150); Anion Gap 14 mmol/L (10-20); BUN (Urea Nitrogen) 15 mg/dL (7.0-18.7); Bilirubin, Total 0.9 mg/dL (0.2-1.2); CK (CPK) 313 U/L (29-168); Calc. Creatinine Clearance 0 mL/min (70-130); Calcium 9.4 mg/dL (7.8-10.44); Carbon Dioxide 21 mmol/L (22-29); Chloride 103 mmol/L (98-107); Estimated GFR-MDRD 82; Globulin 3.4 g/dL (2.4-3.5); Glucose 98 mg/dL (70-105); Lipase 25 U/L (8-78); Potassium 4.1 mmol/L (3.5-5.1); Protein, Total 7.4 g/dL (6.0-8.3); Sodium 134 mmol/L (136-145)
[2018-04-19 12:09] LABS: CKMB 1.7 ng/mL (0-6.6); Troponin I Less than 0.010 ng/mL (< 0.028)
[2018-04-19 12:12] LABS: Band 23 % (5-11); Eosinophils 1 % (0-10); Hemoglobin 13.5 g/dL (12.0-16.0); Lymphocytes 5 % (21-51); MDiff Complete? YES; Mean Corpuscular Hemoglobin 28.2 pg (27.0-31.0); Mean Corpuscular Volume 88.1 fl (81.0-99.0); Mean Platelet Volume 7.2 fL (7.4-10.4); Monocytes 4 % (0-10); Neutrophil 66 % (42-75); PLT Morphology Comment Appears Adequate; Platelet Count 256 thou/uL (130-400); RBC Distribution Width 12.9 % (11.5-14.5); RBC Morphology Normal; Reactive Lymphocytes 1 % (0-10); Red Blood Cell (RBC) Count 4.78 mill/uL (4.20-5.40); Vacuoles SLIGHT; White Blood Cell (WBC) Count 24.8 thou/uL (4.8-10.8)
[2018-04-19] MEDS ORDERED: Morphine 4 MG/ML VIAL ONE (12:17)
[2018-04-19] MEDS ORDERED: Sodium Chloride 0.9% 100 ML ONE (12:49)
[2018-04-19] MEDS ORDERED: diphenhydrAMINE 50 MG/ML VIAL ONE (12:49)
[2018-04-19] MEDS ORDERED: Cefepime 2 GM VIAL ONE (12:49)
--- NOTE | 2018-04-19 13:02 | CT ---
CT PULMONARY ANGIOGRAM WITH IV CONTRAST AND 3D POSTPROCESSING: Date: 04/19/18 HISTORY: Dyspnea. COPD. Cough. Fever. FINDINGS: Comparison made with exam of 07/08/17. There is suboptimal opacification of the pulmonary arterial vasculature with attenuation values of 13 3 Hounsfield units in the main pulmonary artery. The thoracic aorta is better opacified than the pulm onary arterial vasculature. No definite filling defects are seen in the main pulmonary arteries. The remainder of the pulmonary arterial vascular system cannot be satisfactorily evaluated to exclude pul monary embolism. The thoracic aorta is well opacified, without aneurysm or dissection. The 9.0 mm lymph node in the an terior mediastinum is stable. No pleural or pericardial effusions are identified. There are mild patc hy infiltrates in the anterior upper lobes. There are degenerative changes in the spine. IMPRESSION: 1. Suboptimal exam. No definite evidence of embolism in the main pulmonary arteries. 2. Probable pneumonitis. POS: [facility]
[2018-04-19 14:38] VITALS: BMI 27.8
[2018-04-19] MEDS ORDERED: Acetaminophen 325 MG TAB PO PRN (14:41)
[2018-04-19] MEDS ORDERED: Ondansetron ODT 4 MG TAB PO PRN (14:41)
--- NOTE | 2018-04-19 15:24 | HP ---
PRIMARY CARE PROVIDER: Dr. Melvina Copeland at [facility]. CHIEF COMPLAINT: Patient referred to the [facility] for pneumonia. HISTORY OF PRESENT ILLNESS: Patient states she has had back pain since last week that she had a CT w ith a bulging disk. When asked about her respiratory problems, she stated she had a fever, headache, shortness of breath, cough for 2 days. She has had some pleuritic chest pain. She says she is tryi ng to quit smoking and is down to about a half a pack a day. PAST MEDICAL HISTORY: Pertinent for COPD/asthma, tobacco use with restless usage. PAST SURGICAL HISTORY: Restless legs syndrome, anxiety, depression, fibromyalgia. CURRENT MEDICATIONS: Flexeril 10 mg p.o. t.i.d. p.r.n., ibuprofen 800 mg p.o. t.i.d. p.r.n., duloxet ine 60 mg a day, estradiol 2 mg a day, Xanax 0.25 mg at bedtime, prednisone 20 mg a day, pramipexole 0.5 mg #4 bedtime, hydrocodone 10/325 every 6 hours as needed, Singulair 10 mg a day, olanzapine 2.5 mg a day, clonazepam 1 mg twice a day p.r.n., and nebulizers with DuoNeb 3 mL. ALLERGIES: DOXYCYCLINE, HALDOL, LEVAQUIN, LORATADINE, MORPHINE, and PENICILLIN. FAMILY HISTORY: Negative for diabetes and hypertension. SOCIAL HISTORY: Smoker. No alcohol intake. CODE STATUS: FULL CODE status. REVIEW OF SYSTEMS: Constitutional: She gets occasional lightheaded, dizzy spells, no fainting. She has had a headache with present illness. Eyes: No double vision, blurred vision, flashing lights. Ears, Nose, and Throat: No ear pain or drainage. No nasal bleeding. No trouble swallowing. Cardi ac: Some short brief chest pain that she describes as fluttering. No orthopnea or paroxysmal noctur nal dyspnea. Respiratory: She has coughing, wheezing, shortness of breath at rest. Gastrointestina l: She has had a little nausea, no vomiting. No abdominal pain, diarrhea, no blood in her stools. Genitourinary: No hematuria or dysuria. Musculoskeletal: No pain or swelling in her arms or legs. Neurological: No strokes, seizures, or focal weakness. Psychiatric: Chronic anxiety, depression. Skin: No bruises, bleeding or rash. Heme/Lymph: No tender or swollen lymph nodes in axilla, ingui nal, or cervical area. PHYSICAL EXAMINATION: VITAL SIGNS: In the emergency department, her vital signs, blood pressure 124/60, pulse 97, respirat ions 18, pain 5, O2 sat 99% on room air. HEENT: Examination of her head, eyes, ears, nose, and throat reveal pupils equal, round, and reactiv e to light. Extraocular movements are intact. Sclerae white. Tympanic membranes clear. Nose clear . Oral mucous membranes are wet. Dental hygiene is fair. NECK: No jugular venous distention, adenopathy, or thyromegaly. CHEST: Hyperresonant. Clear anteriorly wheezes, rhonchi posteriorly. HEART: Regular rate and rhythm with no murmurs or gallops. ABDOMEN: Soft. Bowel sounds are normal. There is no hepatosplenomegaly, no mass, no rebound. EXTREMITIES: Reveal no cyanosis, clubbing, or edema. PULSES: Carotid, radial, femoral, and dorsalis pedis pulses intact and symmetric. SKIN: Warm and dry without bruises or rash. HEME/LYMPH: Reveals no tender or swollen lymph nodes in axillae, inguinal, or cervical area. NEUROLOGICAL: Cranial nerves II-XII are intact. Deep tendon reflexes symmetric. Moves all extremit ies. IMAGING: EKG, sinus tachycardia, no acute ST-T abnormality, reviewed by me. Chest x-ray, no cardiom egaly, CHF, or infiltrate. CT scan is read as mild patchy infiltrates in the upper lobes, possible p neumonitis. LABORATORY DATA: Sodium 134, potassium 4.1, chloride 103, CO2 of 21, BUN 15, creatinine 0.75. Lacti c acid 2.3. Liver function tests normal. CBC: White count 24.8 with 23% bands. Urine is clear. ADMITTING DIAGNOSES: 1. Chronic obstructive pulmonary disease exacerbation. 2. Pneumonia. 3. Anxiety/depression. 4. Ongoing tobacco abuse. 5. Restless legs syndrome. 6. Back pain. PLAN: 1. Blood cultures and urine drug screen. 2. Antibiotics with Rocephin and Zithromax. 3. IV Solu-Medrol. 4. Nebs q.6 hours and q.3 hours p.r.n. 5. Selective home medicines. 6. For back pain, I reviewed her CT scan. There is no impressive abnormality there. We will contin ue her on p.o. analgesia, which she has gotten from her primary care provider.
[2018-04-19 15:49] LABS: Lactic Acid 4.5 mmol/L (0.5-2.2)
[2018-04-19] MEDS: cefTRIAXone\\ROCEPHIN 1 GM in Sodium Chloride 0.9% 100 ML IVPB SCH (16:23)
[2018-04-19] MEDS: Dextrose 5 %-0.45 % NaCl 1,000 ML IV SCH (16:23)
[2018-04-19] MEDS: Azithromycin 500 MG in Sodium Chloride 0.9% 250 ML 250 ML IVPB SCH (17:04)
[2018-04-19] MEDS ORDERED: Ibuprofen 800 MG TAB PO PRN (17:28)
[2018-04-19 17:58] LABS: Amphetamine Not Detected (NotDetected); Barbiturates Screen Not Detected (NotDetected); Benzodiazepine Screen Not Detected (NotDetected); Cocaine Metabolite Screen Not Detected (NotDetected); Medtox Control Line Valid? VALID (VALID); Medtox Reader # READER 1; Methadone Not Detected (NotDetected); Methamphetamine Not Detected (NotDetected); Opiate Screen Detected (NotDetected); Oxycodone Screen Not Detected (NotDetected); Phencyclidine (PCP) Not Detected (NotDetected); THC/Cannabinoid Screen Not Detected (NotDetected); Tricyclic Screen Not Detected (NotDetected)
[2018-04-19] MEDS: clonazePAM 1 MG TAB PO PRN (18:08)
[2018-04-19] MEDS ORDERED: ISOVUE-370 76%-LOCM 1 ML ONE (18:29)
[2018-04-19] MEDS: Melatonin 3 MG TAB PO SCH (20:32)
[2018-04-19] MEDS: HYDROcodone/Acetaminophen 10/325 mg Tablet PO PRN (20:32)
[2018-04-19] MEDS: ALPRAZolam 0.25 MG TAB PO PRN (20:32)
[2018-04-19] MEDS: Pramipexole Di-HCl 1 MG TAB PO SCH (20:47)
[2018-04-19] MEDS ORDERED: Pramipexole Di-HCl 1 MG TAB PO SCH (21:00)
[2018-04-20] MEDS: Dextrose 5 %-0.45 % NaCl 1,000 ML IV SCH ×2 (03:40→14:29)
[2018-04-20 05:06] LABS: #Lymphocytes 1.2 thou/uL (1.20-3.40); #Monocytes 0.5 thou/uL (0.11-0.59); #Neutrophils 17.6 thou/uL (1.40-6.50); %Lymphocytes 6.2 % (21.0-51.0); %Monocytes 2.4 % (0.0-10.0); %Neutrophils 91.4 % (42.0-75.0); Hemoglobin 12.1 g/dL (12.0-16.0); Mean Corpuscular HGB CONC 32.5 g/dL (32.0-36.0); Mean Corpuscular Hemoglobin 28.9 pg (27.0-31.0); Mean Corpuscular Volume 88.8 fl (81.0-99.0); Mean Platelet Volume 7.3 fL (7.4-10.4); Platelet Count 230 thou/uL (130-400); RBC Distribution Width 13.1 % (11.5-14.5); Red Blood Cell (RBC) Count 4.18 mill/uL (4.20-5.40); White Blood Cell (WBC) Count 19.3 thou/uL (4.8-10.8)
[2018-04-20 05:13] LABS: Anion Gap 11 mmol/L (10-20); BUN (Urea Nitrogen) 13 mg/dL (7.0-18.7); Calc. Creatinine Clearance 131 mL/min (70-130); Calcium 8.8 mg/dL (7.8-10.44); Carbon Dioxide 23 mmol/L (22-29); Chloride 108 mmol/L (98-107); Estimated GFR-MDRD Greater than 90; Glucose 164 mg/dL (70-105); Potassium 3.9 mmol/L (3.5-5.1); Sodium 138 mmol/L (136-145)
[2018-04-20] MEDS: Enoxaparin Sodium 40 MG/0.4 ML SYRINGE SC SCH (08:34)
[2018-04-20] MEDS: Montelukast Sodium 10 mg Tablet PO SCH (08:35)
[2018-04-20] MEDS: HYDROcodone/Acetaminophen 10/325 mg Tablet PO PRN ×3 (08:36→19:21)
[2018-04-20] MEDS: OLANZapine 5 MG TAB PO SCH (08:36)
[2018-04-20] MEDS: clonazePAM 1 MG TAB PO PRN (08:37)
[2018-04-20] MEDS: Nicotine 21 MG PATCH TD SCH (08:40)
[2018-04-20] MEDS: DULoxetine 30 MG CAP PO SCH (08:52)
[2018-04-20] MEDS: Estradiol 1 MG TAB PO SCH (08:53)
--- NOTE | 2018-04-20 09:04 | PDOC.PN ---
- Subjective Encounter Start Date: 04/20/18 Encounter Start Time: 09:03 Subjective: not good - Objective Resuscitation Status: Resuscitation Status FULL:Full Resuscitation MAR Reviewed: Yes Vital Signs & Weight: Vital Signs (12 hours) Temp Pulse Resp BP Pulse Ox 04/20/18 07:59 98 04/20/18 07:58 96 04/20/18 07:55 98.5 F 84 20 121/71 96 04/20/18 01:58 95 04/20/18 01:55 95 I&O: 04/19/18 04/20/18 04/21/18 06:59 06:59 06:59 Intake Total 1920 Balance 1920 Result Diagrams: 04/20/18 04:46 04/20/18 04:46 Phys Exam - Physical Examination Neck: no JVD patient forcing air through neck to produce stidor, BS adequate, O2 sat exc Cardiovascular: RRR, no significant murmur Gastrointestinal: soft, non-tender, positive bowel sounds Musculoskeletal: no edema Dx/Plan (1) COPD exacerbation Code(s): J44.1 - CHRONIC OBSTRUCTIVE PULMONARY DISEASE W (ACUTE) EXACERBATION Status: Acute Comment: improved. Steroids, nebs, O2, abx (2) Tobacco dependence Code(s): F17.200 - NICOTINE DEPENDENCE, UNSPECIFIED, UNCOMPLICATED Status: Chronic (3) Pneumonitis Code(s): J18.9 - PNEUMONIA, UNSPECIFIED ORGANISM Status: Acute (4) Anxiety disorder Code(s): F41.9 - ANXIETY DISORDER, UNSPECIFIED Status: Acute Qualifiers: Anxiety disorder type: unspecified anxiety disorder Qualified Code(s): F41.9 - Anxiety disorder, unspecified (5) Restless leg syndrome Status: Chronic - Plan cont antibx -: cont sched nebs -: po anagesia -: RPT cxr 04/21- * .
[2018-04-20] MEDS: cefTRIAXone\\ROCEPHIN 1 GM in Sodium Chloride 0.9% 100 ML IVPB SCH (15:53)
[2018-04-20] MEDS: Azithromycin 500 MG in Sodium Chloride 0.9% 250 ML 250 ML IVPB SCH (16:44)
[2018-04-20] MEDS: Docusate 100 MG CAP PO PRN (20:48)
[2018-04-20] MEDS: Melatonin 3 MG TAB PO SCH (20:49)
[2018-04-20] MEDS: Cyclobenzaprine 10 MG TAB PO PRN (20:49)
[2018-04-20] MEDS: ALPRAZolam 0.25 MG TAB PO PRN (20:49)
[2018-04-20] MEDS: Pramipexole Di-HCl 1 MG TAB PO SCH (20:49)
[2018-04-20] MEDS: Zolpidem Tartrate 5 MG TAB PO PRN (22:40)
[2018-04-21] MEDS: HYDROcodone/Acetaminophen 10/325 mg Tablet PO PRN ×4 (00:32→20:12)
[2018-04-21] MEDS: DULoxetine 30 MG CAP PO SCH (08:42)
[2018-04-21] MEDS: Montelukast Sodium 10 mg Tablet PO SCH (08:42)
[2018-04-21] MEDS: Estradiol 1 MG TAB PO SCH (08:42)
[2018-04-21] MEDS: Nicotine 21 MG PATCH TD SCH (08:42)
[2018-04-21] MEDS: clonazePAM 1 MG TAB PO PRN (08:43)
[2018-04-21] MEDS: OLANZapine 5 MG TAB PO SCH (08:43)
[2018-04-21] MEDS: Enoxaparin Sodium 40 MG/0.4 ML SYRINGE SC SCH (08:44)
--- NOTE | 2018-04-21 09:20 | RAD ---
PA AND LATERAL VIEWS CHEST: HISTORY: Pneumonitis. FINDINGS: Comparison is made with the exam on 04/19/18. The heart size is normal. The lungs are expanded without focal areas of consolidation, or pleural ef fusions. There are postop changes in the lower cervical spine. IMPRESSION: No radiographic evidence of acute cardiopulmonary process. POS: OFF
--- NOTE | 2018-04-21 09:50 | PDOC.PN ---
- Subjective Encounter Start Date: 04/21/18 Encounter Start Time: 07:10 -: old records requested/rev Patient seen and examined for copd exacerbation, still wheezing, does not feel to go home today. No overnight events - Objective Resuscitation Status: Resuscitation Status FULL:Full Resuscitation MAR Reviewed: Yes Vital Signs & Weight: Vital Signs (12 hours) Temp Pulse Resp BP Pulse Ox 04/21/18 08:00 98.5 F 82 14 132/66 95 04/21/18 07:01 80 14 04/21/18 00:02 94 L I&O: 04/20/18 04/21/18 04/22/18 06:59 06:59 06:59 Intake Total 19190 Balance 1919 1649 Result Diagrams: 04/20/18 04:46 04/20/18 04:46 Phys Exam - Physical Examination Constitutional: NAD HEENT: PERRLA, moist MMs, sclera anicteric Neck: no JVD, supple Respiratory: no rales, wheezing present Cardiovascular: RRR, no significant murmur, no rub Gastrointestinal: soft, non-tender, no distention, positive bowel sounds Musculoskeletal: no edema, pulses present Neurological: non-focal, normal sensation, moves all 4 limbs Lymphatic: no nodes Psychiatric: normal affect, A&O x 3 Skin: no rash, normal turgor Dx/Plan (1) COPD exacerbation Code(s): J44.1 - CHRONIC OBSTRUCTIVE PULMONARY DISEASE W (ACUTE) EXACERBATION Status: Acute Comment: improved. Steroids, nebs, O2, abx (2) Pneumonitis Code(s): J18.9 - PNEUMONIA, UNSPECIFIED ORGANISM Status: Acute (3) Lactic acidosis Code(s): E87.2 - ACIDOSIS Status: Acute (4) Anxiety disorder Code(s): F41.9 - ANXIETY DISORDER, UNSPECIFIED Status: Acute Qualifiers: Anxiety disorder type: unspecified anxiety disorder Qualified Code(s): F41.9 - Anxiety disorder, unspecified (5) Anxiety and depression Code(s): F41.9 - ANXIETY DISORDER, UNSPECIFIED; F32.9 - MAJOR DEPRESSIVE DISORDER, SINGLE EPISODE, UNSPECIFIED Status: Chronic (6) COPD (chronic obstructive pulmonary disease) Status: Chronic Qualifiers: COPD type: COPD with acute exacerbation Qualified Code(s): J44.1 - Chronic obstructive pulmonary disease with (acute) exacerbation (7) Fibromyalgia Status: Chronic (8) Restless leg syndrome Status: Chronic (9) Tobacco dependence Code(s): F17.200 - NICOTINE DEPENDENCE, UNSPECIFIED, UNCOMPLICATED Status: Chronic (10) Vocal cord dysfunction Code(s): J38.3 - OTHER DISEASES OF VOCAL CORDS Status: Chronic Comment: as above - Plan cont current plan of care, plan discussed w/ family, continue antibiotics * chest xray is normal * medication reviewed as below * symptomatic treatment * continue respiratory therapy. * continue rocephin and azithromycin * her wheezing is most likely from upper airway Review of Systems - Review of Systems Constitutional: negative: fever, chills, sweats, weakness, malaise, other Eyes: negative: Pain, Vision Change, Conjunctivae Inflammation, Eyelid Inflammation, Redness, Other ENT: negative: Ear Pain, Ear Discharge, Nose Pain, Nose Discharge, Nose Congestion, Mouth Pain, Mouth Swelling, Throat Pain, Throat Swelling, Other Respiratory: Wheezing. negative: Cough, Dry, Shortness of Breath, Hemoptysis, SOB with Excertion, Pleuritic Pain, Sputum Cardiovascular: negative: chest pain, palpitations, orthopnea, paroxysmal nocturnal dyspnea, edema, light headedness, other Gastrointestinal: negative: Nausea, Vomiting, Abdominal Pain, Diarrhea, Constipation, Melena, Hematochezia, Other Genitourinary: negative: Dysuria, Frequency, Incontinence, Hematuria, Retention , Other Musculoskeletal: negative: Neck Pain, Shoulder Pain, Arm Pain, Back Pain, Hand Pain, Leg Pain, Foot Pain, Other Skin: negative: Rash, Lesions, Shamar, Bruising, Other - Medications/Allergies Allergies/Adverse Reactions: Allergies Allergy/AdvReac Type Severity Reaction Status Date / Time Penicillins Allergy Intermediate Hives Verified 05/31/17 17:24 doxycycline Allergy Hives Verified 05/31/17 17:24 haloperidol [From Haldol] Allergy Verified 05/31/17 17:24 levofloxacin [From Levaquin] Allergy Hives Verified 05/31/17 17:24 loratadine [From Claritin] Allergy Rash Verified 05/31/17 17:24 morphine Allergy Verified 11/09/17 03:09 penicillin G Allergy Verified 05/31/17 17:24 Medications: Current Medications Acetaminophen (Tylenol) 650 mg PO Q4H PRN PRN Reason: Headache/Fever or Pain Hydrocodone Bitart/Acetaminophen ([place] 10/325) 1 tab PO Q4HR PRN PRN Reason: Pain Last Admin: 04/21/18 00:32 Dose: 1 tab Albuterol/Ipratropium (Duoneb) 3 ml NEB Q3RB-AY [facility] Last Admin: 04/21/18 07:01 Dose: 3 ml Albuterol/Ipratropium (Duoneb) 3 ml NEB Q2H PRN PRN Reason: SOB &/or Wheezing Alprazolam (Xanax) 0.125 mg PO HS PRN PRN Reason: Insomnia Last Admin: 04/20/18 20:49 Dose: 0.125 mg Clonazepam (Klonopin) 1 mg PO BID PRN PRN Reason: Anxiety/Agitation Last Admin: 04/21/18 08:43 Dose: 1 mg Cyclobenzaprine HCl (Flexeril) 10 mg PO HS PRN PRN Reason: Muscle Spasm Last Admin: 04/20/18 20:49 Dose: 10 mg Docusate Sodium (Colace) 100 mg PO DAILY PRN PRN Reason: Constipation Last Admin: 04/20/18 20:48 Dose: 100 mg Duloxetine HCl (Cymbalta) 30 mg PO DAILY [facility] Last Admin: 04/21/18 08:42 Dose: 30 mg Enoxaparin Sodium (Lovenox) 40 mg SC 0900 [facility] Last Admin: 04/21/18 08:44 Dose: 40 mg Estradiol (Estrace) 2 mg PO DAILY [facility] Last Admin: 04/21/18 08:42 Dose: 2 mg Azithromycin 500 mg/ Sodium (Chloride) 250 mls @ 250 mls/hr IVPB 1600 [facility] Last Admin: 04/20/18 16:44 Dose: 250 mls Ceftriaxone Sodium 1 gm/ (Sodium Chloride) 100 mls @ 200 mls/hr IVPB 1530 [facility] Last Admin: 04/20/18 15:53 Dose: 100 mls Ibuprofen (Motrin) 800 mg PO Q8H PRN PRN Reason: Pain Melatonin (Melatonin) 3 mg PO HS [facility] Last Admin: 04/20/18 20:49 Dose: 3 mg Methylprednisolone Sodium Succinate (Solu-Medrol) 20 mg IVP Q8HR [facility] Last Admin: 04/21/18 06:22 Dose: 20 mg Montelukast Sodium (Singulair) 10 mg PO DAILY [facility] Last Admin: 04/21/18 08:42 Dose: 10 mg Nicotine (Nicoderm Patch) 21 mg TD DAILY [facility] Last Admin: 04/21/18 08:42 Dose: 21 mg Olanzapine (Zyprexa) 2.5 mg PO DAILY [facility] Last Admin: 04/21/18 08:43 Dose: 2.5 mg Ondansetron HCl (Zofran Odt) 4 mg PO Q6H PRN PRN Reason: Nausea/Vomiting Last Admin: 04/19/18 21:28 Dose: 4 mg Pramipexole Dihydrochloride (Mirapex) 2 mg PO HS [facility] Last Admin: 04/20/18 20:49 Dose: 2 mg Sodium Chloride (Flush - Normal Saline) 10 ml IVF Q12HR [facility] Last Admin: 04/21/18 08:44 Dose: 10 ml Sodium Chloride (Flush - Normal Saline) 10 ml IVF PRN PRN PRN Reason: Saline Flush Last Admin: 04/21/18 06:22 Dose: 10 ml Zolpidem Tartrate (Ambien) 5 mg PO HSPRN PRN PRN Reason: Insomnia Last Admin: 04/20/18 22:40 Dose: 5 mg
[2018-04-21 10:36] LABS: Mean Corpuscular HGB CONC 31.7 g/dL (32.0-36.0); Mean Corpuscular Hemoglobin 28.5 pg (27.0-31.0); Mean Platelet Volume 7.2 fL (7.4-10.4); Platelet Count 256 thou/uL (130-400); RBC Distribution Width 13.1 % (11.5-14.5); White Blood Cell (WBC) Count 22.5 thou/uL (4.8-10.8)
[2018-04-21 10:47] LABS: Anion Gap 15 mmol/L (10-20); BUN (Urea Nitrogen) 13 mg/dL (7.0-18.7); Calc. Creatinine Clearance 119 mL/min (70-130); Calcium 9.3 mg/dL (7.8-10.44); Carbon Dioxide 23 mmol/L (22-29); Chloride 105 mmol/L (98-107); Estimated GFR-MDRD 84; Glucose 144 mg/dL (70-105); Potassium 4.1 mmol/L (3.5-5.1); Sodium 139 mmol/L (136-145)
[2018-04-21 11:04] LABS: Lactic Acid 4.3 mmol/L (0.5-2.2)
[2018-04-21 12:22] LABS: Band 14 % (5-11); Lymphocytes 6 % (21-51); MDiff Complete? YES; Monocytes 4 % (0-10); Neutrophil 75 % (42-75); PLT Morphology Comment Appears Adequate; RBC Morphology Normal; Reactive Lymphocytes 1 % (0-10)
--- NOTE | 2018-04-21 14:22 | PQF ---
CLINICAL DOCUMENTATION IMPROVEMENT CLARIFICATION FORM: ICD-10 Updated PLEASE DO AN ADDENDUM TO THE PROGRESS NOTE WITH ANY DOCUMENTATION UPDATES OR ADDITIONS AND CARRY THROUGH TO DC SUMMARY. THANK YOU. DATE: 04/21, 04/22 ATTN: DR. RIVER PHIPPS / DR. DIANA BARNES Please exercise your independent, professional judgment in responding to the clarification form. Clinical indicators are provided on the bottom of this form for your review Please check appropriate box(es): [ X] Sepsis due to: (Pna, UTI, gangrenous gall bladder, etc.) [ ] Localized infection without sepsis [ ] Other diagnosis [ ] Unable to determine For continuity of documentation, please document condition throughout progress notes and discharge summary. Thank You. CLINICAL INDICATORS - SIGNS / SYMPTOMS / LABS ER PRESENTATION 04/19: T: 103.1 HR: 124 RR: 25 WBC: 24.8 LACTIC ACID: 2.3 ER PHYSICIAN FINAL DIAGNOSES: SEPSIS, COPD, PNEUMONIA NO FURTHER MENTION OF SEPSIS TO DATE RISK FACTORS: PNEUMONIA, UNSPECIFIED ORGANISM TOBACCO ABUSE COPD EXACERBATION TREATMENTS: IV ANTIBIOTICS (ROCEPHIN & AZITHROMYCIN 04/19 - PRESENT) IVF (D5 11/19 NS, 04/19) THANK YOU! Shreya (This form is maintained as a part of the permanent medical record) 2014 [employer]. All Rights Reserved Shreya Yost RN, BSN [email or web address] Office: [phone] [facility]
[2018-04-21] MEDS: cefTRIAXone\\ROCEPHIN 1 GM in Sodium Chloride 0.9% 100 ML IVPB SCH (15:46)
[2018-04-21] MEDS: Azithromycin 500 MG in Sodium Chloride 0.9% 250 ML 250 ML IVPB SCH (16:35)
[2018-04-21] MEDS ORDERED: Promethazine HCl 12.5 MG in Sodium Chloride 0.9% 50 ML IVPB PRN (18:26)
[2018-04-21] MEDS: Pramipexole Di-HCl 1 MG TAB PO SCH (20:10)
[2018-04-21] MEDS: Melatonin 3 MG TAB PO SCH (20:10)
[2018-04-21] MEDS: Docusate 100 MG CAP PO PRN (20:11)
[2018-04-21] MEDS: ALPRAZolam 0.25 MG TAB PO PRN (20:11)
[2018-04-21] MEDS: Cyclobenzaprine 10 MG TAB PO PRN (20:11)
[2018-04-21] MEDS: Zolpidem Tartrate 5 MG TAB PO PRN (22:47)
[2018-04-22] MEDS: HYDROcodone/Acetaminophen 10/325 mg Tablet PO PRN ×3 (07:40→20:00)
--- NOTE | 2018-04-22 07:44 | PDOC.PN ---
- Subjective Encounter Start Date: 04/22/18 Encounter Start Time: 07:42 Ms. Rodriguez was seen today in follow-up of COPd exacerbation. She says she feels drained. She still has some pain in her back when she coughs. - Objective Resuscitation Status: Resuscitation Status FULL:Full Resuscitation MAR Reviewed: Yes Vital Signs & Weight: Vital Signs (12 hours) Temp Pulse Resp BP Pulse Ox 04/22/18 01:33 65 18 98 04/21/18 20:00 98.9 F 80 15 131/92 H 93 L I&O: 04/21/18 04/22/18 04/23/18 06:59 06:59 06:59 Intake Total 1650 3060 Balance 1650 3060 Result Diagrams: 04/21/18 10:17 04/21/18 10:17 Phys Exam - Physical Examination HEENT: PERRLA Respiratory: wheezing present + bilateral wheezing and coarse breath sounds Cardiovascular: RRR, no significant murmur, no rub Gastrointestinal: soft, non-tender, no distention, positive bowel sounds Musculoskeletal: edema present 1+ edema in the ankles Dx/Plan (1) COPD exacerbation Code(s): J44.1 - CHRONIC OBSTRUCTIVE PULMONARY DISEASE W (ACUTE) EXACERBATION Status: Acute Comment: improved. Steroids, nebs, O2, abx (2) Lactic acidosis Code(s): E87.2 - ACIDOSIS Status: Acute (3) Pneumonitis Code(s): J18.9 - PNEUMONIA, UNSPECIFIED ORGANISM Status: Acute (4) Fibromyalgia Status: Chronic (5) Restless leg syndrome Status: Chronic - Plan * Acute on chronic respiratory failure- due to COPD exacerbation, and Pneumontis - She is slowly improving * Will change the antibiotics, and steroids to oral * She is already on room air, and oxygenating well * Continue to encourage ambulation * Hopefully home tomorrow.
[2018-04-22] MEDS ORDERED: predniSONE 1 MG/ML ML PO SCH (09:00)
[2018-04-22] MEDS: DULoxetine 30 MG CAP PO SCH (09:07)
[2018-04-22] MEDS: Azithromycin 250 MG TAB PO SCH (09:07)
[2018-04-22] MEDS: Enoxaparin Sodium 40 MG/0.4 ML SYRINGE SC SCH (09:08)
[2018-04-22] MEDS: Estradiol 1 MG TAB PO SCH (09:08)
[2018-04-22] MEDS: Nicotine 21 MG PATCH TD SCH (09:09)
[2018-04-22] MEDS: Montelukast Sodium 10 mg Tablet PO SCH (09:09)
[2018-04-22] MEDS: OLANZapine 5 MG TAB PO SCH (09:10)
[2018-04-22] MEDS: predniSONE 5 MG TAB PO SCH (09:10)
[2018-04-22] MEDS: Cyclobenzaprine 10 MG TAB PO PRN (16:56)
[2018-04-22] MEDS: clonazePAM 1 MG TAB PO PRN (17:13)
[2018-04-22] MEDS: ALPRAZolam 0.25 MG TAB PO PRN (20:02)
[2018-04-22] MEDS: Melatonin 3 MG TAB PO SCH (20:02)
[2018-04-22] MEDS: Pramipexole Di-HCl 1 MG TAB PO SCH (20:02)
[2018-04-23] MEDS: HYDROcodone/Acetaminophen 10/325 mg Tablet PO PRN (05:22)
[2018-04-23 05:44] LABS: #Basophils 0.1 thou/uL (0.0-0.2); #Eosinphils 0.1 thou/uL (0.0-0.7); #Lymphocytes 5.6 thou/uL (1.20-3.40); #Monocytes 1.4 thou/uL (0.11-0.59); #Neutrophils 7.3 thou/uL (1.40-6.50); %Basophils 0.4 % (0.0-1.0); %Eosinophils 0.6 % (0.0-10.0); %Lymphocytes 38.8 % (21.0-51.0); %Monocytes 9.6 % (0.0-10.0); %Neutrophils 50.5 % (42.0-75.0); Hemoglobin 12.1 g/dL (12.0-16.0); Mean Corpuscular HGB CONC 32.2 g/dL (32.0-36.0); Mean Corpuscular Hemoglobin 28.6 pg (27.0-31.0); Mean Platelet Volume 7.4 fL (7.4-10.4); Platelet Count 255 thou/uL (130-400); RBC Distribution Width 13.1 % (11.5-14.5); Red Blood Cell (RBC) Count 4.23 mill/uL (4.20-5.40); White Blood Cell (WBC) Count 14.4 thou/uL (4.8-10.8)
[2018-04-23 06:05] LABS: Anion Gap 12 mmol/L (10-20); BUN (Urea Nitrogen) 20 mg/dL (7.0-18.7); Calc. Creatinine Clearance 120 mL/min (70-130); Calcium 9.2 mg/dL (7.8-10.44); Carbon Dioxide 30 mmol/L (22-29); Chloride 101 mmol/L (98-107); Estimated GFR-MDRD 85; Glucose 77 mg/dL (70-105); Sodium 139 mmol/L (136-145)
--- NOTE | 2018-04-23 07:02 | PDOC.PN ---
- Subjective Encounter Start Date: 04/23/18 Encounter Start Time: 07:01 Ms. Rodriguez was seen today in follow-up of COPD exacerbation. She says she is breathing better, and is less fatigued. - Objective Resuscitation Status: Resuscitation Status FULL:Full Resuscitation MAR Reviewed: Yes Vital Signs & Weight: Vital Signs (12 hours) Temp Pulse Resp BP Pulse Ox 04/23/18 06:24 80 14 04/23/18 02:47 73 18 98 04/22/18 20:00 98.4 F 95 20 95 04/22/18 19:51 98.4 F 95 20 128/63 95 I&O: 04/22/18 04/23/18 04/24/18 06:59 06:59 06:59 Intake Total 3060 930 Balance 3060 930 Result Diagrams: 04/23/18 05:21 04/23/18 05:21 Phys Exam - Physical Examination HEENT: PERRLA Respiratory: no rales, no rhonchi, wheezing present Cardiovascular: RRR, no significant murmur, no rub Gastrointestinal: soft, non-tender, positive bowel sounds Musculoskeletal: edema present trace pedal edema Dx/Plan (1) COPD exacerbation Code(s): J44.1 - CHRONIC OBSTRUCTIVE PULMONARY DISEASE W (ACUTE) EXACERBATION Status: Acute Comment: improved. Steroids, nebs, O2, abx (2) Lactic acidosis Code(s): E87.2 - ACIDOSIS Status: Acute (3) Pneumonitis Code(s): J18.9 - PNEUMONIA, UNSPECIFIED ORGANISM Status: Acute (4) Fibromyalgia Status: Chronic (5) Restless leg syndrome Status: Chronic - Plan * COPD exacerbation- improved * She is stable for discharge home.
--- NOTE | 2018-04-23 07:39 | DIS ---
DATE OF ADMISSION: 04/19/2018 DATE OF DISCHARGE: 04/23/2018 PRIMARY CARE PHYSICIAN: Dr. Melvina Copeland. DISCHARGE DISPOSITION: Home. PRIMARY DISCHARGE DIAGNOSES: 1. Community-acquired pneumonia with Sepsis due to Pneumonia 2. Acute on chronic respiratory failure secondary to #1. 3. Chronic obstructive pulmonary disease exacerbation. 4. History of anxiety and depression. 5. Vocal cord dysfunction. 6. History of restless leg syndrome. 7. Fibromyalgia. DISCHARGE MEDICATIONS: Include azithromycin 250 mg daily for 4 days, prednisone 20 mg p.o. for 3 days, DuoNeb q.6 hours as needed, Mirapex 0.5 mg 4 tablets at bedtime, Zyprexa 2.5 mg daily, Singulair 10 mg daily, melatonin 3 mg at bedtime, ibuprofen 800 mg q.8 hours, Estrace 2 mg daily, Cymbalta 30 mg daily , Colace 100 mg as needed, Flexeril 10 mg at bedtime as needed, Klonopin 1 mg twice a day as needed, Symbicort 80/4.5 one puff twice a day, and alprazolam 0.5 mg at bedtime. PROCEDURES DONE DURING ADMISSION: The patient had a CT angiogram of the chest showing a suboptimal exam for pulmonary embolism, but there was no evidence of pulmonary embolism in the main arteries and there was probable pneumonitis. CODE STATUS: FULL CODE. ALLERGIES: To PENICILLIN, DOXYCYCLINE, HALOPERIDOL, LEVOFLOXACIN, LORATADINE, MORPHINE and PENICILLIN G. HOSPITAL COURSE: Ms. Rodriguez is a pleasant 47-year-old female who was admitted to the hospital after having complaints of severe shortness of breath. She was evaluated in the ER and found to have a pneumonitis as well as a COPD exacerbation. She was admitted and started on IV antibiotics as well as IV steroids and DuoNeb and she improved over the course of the next couple of days and was subsequently able to be discharged home. She is to have close followup with her primary care physician and also with her typist. She also states that she plans to have an outpatient cardiology workup for some leg swelling that she had been experiencing. ASHLEY
[2018-04-23] MEDS: predniSONE 5 MG TAB PO SCH (08:30)
[2018-04-23] MEDS: Montelukast Sodium 10 mg Tablet PO SCH (08:30)
[2018-04-23] MEDS: DULoxetine 30 MG CAP PO SCH (08:30)
[2018-04-23] MEDS: Estradiol 1 MG TAB PO SCH (08:30)
[2018-04-23] MEDS: OLANZapine 5 MG TAB PO SCH (08:31)
[2018-04-23] MEDS: Azithromycin 250 MG TAB PO SCH (08:31)
[2018-04-23 08:39] VITALS: BP 171/97; TEMP 97.6
--- NOTE | 2018-04-25 14:52 | EKG ---
Test Reason : Blood Pressure : / mmHG Vent. Rate : 122 BPM Atrial Rate : 122 BPM P-R Int : 152 ms QRS Dur : 068 ms QT Int : 288 ms P-R-T Axes : 057 045 040 degrees QTc Int : 410 ms Sinus tachycardia Possible Left atrial enlargement Borderline ECG Confirmed by BRITTNI RASMUSSEN, BRODERICK ([id number]), editor city MARIELENA DUQUE ([id number]) on 04/25/2018 2:52:23 PM Referred By: Confirmed By:BRODERICK ELKINS MD
== END 2018-04-23 08:34 | disposition home or self-care (01) | DRG 871 ==
LOC: ERS 10:15 → 2SE 13:54 → ONC 20:15
PROVIDERS: ADMIT Internal Medicine; ATTEND Internal Medicine
DX: A41.9 Sepsis, unspecified organism (principal); J18.9 Pneumonia, unspecified organism; J96.20 Acute and chronic respiratory failure, unspecified whether with hypoxia or hypercapnia; J44.1 Chronic obstructive pulmonary disease with (acute) exacerbation; J44.0 Chronic obstructive pulmonary disease with (acute) lower respiratory infection; E87.2 Acidosis; F41.9 Anxiety disorder, unspecified; F32.9 Major depressive disorder, single episode, unspecified; F17.210 Nicotine dependence, cigarettes, uncomplicated; G25.81 Restless legs syndrome; M54.9 Dorsalgia, unspecified; J38.3 Other diseases of vocal cords
CPT/HCPCS: 36415; 71045; 71046; 71275; 80048; 80053; 80306; 81003; 81015; 82553; 83605; 83690; 83880; 84484; 85025; 87040; 87086; 93005; 94640; 96361; 96365; 96374; 96375; J0456; J0692; J0696; J1200; J1650; J2270; J2550; J2920; J2930; J7050; J7620; Q0162

== ENCOUNTER 2018-05-22 14:27 | Outpatient (CLI) | payer BC | END 2018-05-22 14:28 | disposition home or self-care (01) | LOC: BICCT 14:27 | PROVIDERS: ATTEND Internal Medicine Critical Care Medicine | DX: R91.1 Solitary pulmonary nodule (principal); J44.9 Chronic obstructive pulmonary disease, unspecified | CPT/HCPCS: 71250 ==

== ENCOUNTER 2018-05-23 02:47 | Inpatient (IN) | payer BC ==
[2018-05-23] MEDS ORDERED: Albuterol Sulfate 2.5 mg/3 ml Neb ONE ×2 (03:10)
[2018-05-23] MEDS ORDERED: Azithromycin 500 MG VIAL ONE (03:17)
[2018-05-23] MEDS ORDERED: Dexamethasone 10 MG/ML VIAL ONE (03:17)
[2018-05-23 03:26] LABS: Hemoglobin 14.1 g/dL (12.0-16.0); Mean Corpuscular HGB CONC 33.3 g/dL (32.0-36.0); Mean Corpuscular Hemoglobin 28.8 pg (27.0-31.0); Mean Corpuscular Volume 86.5 fL (78.0-98.0); Mean Platelet Volume 7.3 fL (7.4-10.4); Platelet Count 261 thou/uL (130-400); RBC Distribution Width 13.6 % (11.5-14.5); Red Blood Cell (RBC) Count 4.89 mill/uL (4.20-5.40); White Blood Cell (WBC) Count 18.4 thou/uL (4.8-10.8)
[2018-05-23 03:31] LABS: Actual Bicarbonate (HCO3a) 24.7 mEq/L (22-28); Base Excess (BEa) -0.4 mEq/L (-2.0 to +3.0); CO2 Tension 42.4 mmHg (35.0-45.0); pH, Arterial 7.38 (7.35-7.45)
[2018-05-23 03:32] LABS: Hematocrit-ABG 46.5 % (36.0-47.0); Hemoglobin (Hb) 13.9 g/dL (12.0-16.0)
[2018-05-23 03:33] LABS: Analyzer IN Cardio ER; Calcium, Ionized 1.2 mmol/L (1.12-1.30); Puncture Site L WRIST
[2018-05-23 03:42] LABS: ALT (SGPT) 17 U/L (8-55); AST (SGOT) 19 U/L (5-34); Albumin 4.1 g/dL (3.5-5.0); Alkaline Phosphatase 65 U/L (40-150); Anion Gap 15 mmol/L (10-20); BUN (Urea Nitrogen) 16 mg/dL (7.0-18.7); Bilirubin, Total 0.4 mg/dL (0.2-1.2); CK (CPK) 234 U/L (29-168); Calc. Creatinine Clearance 0 mL/min (70-130); Calcium 9.7 mg/dL (7.8-10.44); Carbon Dioxide 23 mmol/L (22-29); Chloride 105 mmol/L (98-107); Estimated GFR-MDRD 69; Globulin 3.3 g/dL (2.4-3.5); Glucose 105 mg/dL (70-105); Lipase 101 U/L (8-78); Protein, Total 7.4 g/dL (6.0-8.3); Sodium 139 mmol/L (136-145)
[2018-05-23 03:45] LABS: CKMB 2.1 ng/mL (0-6.6); Troponin I Less than 0.010 ng/mL (< 0.028)
[2018-05-23] MEDS ORDERED: Magnesium Sulfate 2 GM in Sodium Chloride 0.9% 100 ML IVPB SCH (03:45)
[2018-05-23 03:58] LABS: MDiff Complete? YES
[2018-05-23 03:59] LABS: Band 10 % (5-11); Eosinophils 2 % (0-10); Lymphocytes 13 % (21-51); Monocytes 3 % (0-10); Neutrophil 72 % (42-75)
[2018-05-23] MEDS ORDERED: Lorazepam 2 MG/ML VIAL ONE (04:05)
[2018-05-23] MEDS ORDERED: Acetaminophen 500 MG TAB ONE (04:15)
[2018-05-23] MEDS ORDERED: Metoclopramide HCl 10 MG/2 ML VIAL ONE (04:20)
[2018-05-23] MEDS ORDERED: ALPRAZolam 0.25 MG TAB PO PRN (05:00)
[2018-05-23] MEDS ORDERED: Docusate 100 MG CAP PO PRN (05:00)
[2018-05-23] MEDS ORDERED: HYDROcodone/Acetaminophen 10/325 mg Tablet PO PRN ×2 (05:00→05:40)
[2018-05-23] MEDS ORDERED: Cyclobenzaprine 10 MG TAB PO PRN (05:00)
[2018-05-23] MEDS ORDERED: Ondansetron HCl/PF 4 MG/2 ML Vial IVP PRN (05:02)
[2018-05-23] MEDS ORDERED: Clindamycin/D5W 900 mg/50 ml Premix Bag ONE (05:08)
[2018-05-23 05:21] LABS: Bilirubin Negative (Negative); Blood, Urine Trace (Negative); Clarity CLOUDY (Clear); Glucose, Urine (Dipstick) Negative (Negative); Leukocyte Negative (Negative); Nitrite Negative (Negative); Protein, Urine (Dipstick) Negative (Neg-Trace); Specific Gravity, Urine 1.025 (1.002-1.036); Urobilinogen 0.2 mg/dL (0.2-1.0); pH, Urine 5.5 (5.0-9.0)
[2018-05-23 05:24] LABS: Bacteria/HPF 2+ HPF (None Seen); Pathc Cast-AUWi Flag 2.32 (0-2.49)
[2018-05-23 05:38] LABS: Crystals/HPF 1+ CA OXALATE HPF (Negative); Hyaline Casts/LPF NONE SEEN LPF (0-3 Hyaline); RBC/HPF 0-3 HPF (0-3)
[2018-05-23] MEDS: Sodium Chloride 0.9% 1,000 ML IV SCH ×2 (05:54→15:30)
[2018-05-23] MEDS ORDERED: Ibuprofen 200 MG TAB PO SCH (06:15)
[2018-05-23] MEDS: Aztreonam 1 GM in Sodium Chloride 0.9% 100 ML IVPB SCH ×3 (06:34→20:51)
[2018-05-23 06:52] VITALS: BMI 29.2
[2018-05-23 07:56] LABS: Lactic Acid 4.9 mmol/L (0.5-2.2)
--- NOTE | 2018-05-23 08:43 | RAD ---
CHEST 1 VIEW: COMPARISON: 05/01/18. HISTORY: Chest pain. Shortness of breath. FINDINGS: Stable cervical fusion changes. Normal cardiac silhouette. The lungs and pleural spaces are clear. No pneumothorax or osseous abnormalities. IMPRESSION: No acute cardiopulmonary process. POS: [facility]
[2018-05-23] MEDS: Varenicline Tartrate 0.5 MG TAB PO SCH (09:13)
[2018-05-23] MEDS: Enoxaparin Sodium 40 MG/0.4 ML SYRINGE SC SCH (09:13)
[2018-05-23] MEDS: Nicotine 21 MG PATCH TD SCH (09:13)
[2018-05-23] MEDS: OLANZapine 5 MG TAB PO SCH (09:14)
--- NOTE | 2018-05-23 16:02 | HP ---
REASON FOR ADMISSION: COPD exacerbation, acute respiratory failure with hypoxia , possible sepsis. HISTORY OF PRESENTING ILLNESS: The patient gives history of waking up gasping yesterday evening. She checked her saturations, it was 88%. Her heart rate was 133. She tried taking nebulizer dose. This did not relieve, in fact, patient developed chest pain, was feeling dizzy and was feeling nauseated as well. As her symptoms were getting worse, she made it to the emergency room. Patient also gives history of chills, but no urinary frequency or urgency. She did not check her temperature. On arrival, had temperature of 103 in the ER. The patient has cough with clear expectoration, but has to struggle to bring her sputum up. She is not on home oxygen. The patient states she has been put on ventilator nearly 9 times in her life so far for COPD flareups. The last one was 2 months back at [facility]. She continues to smoke , but has come down to half pack a day from last 1 month or so. PAST MEDICAL AND SURGICAL HISTORY: COPD, restless legs syndrome, ulnar nerve transposition in both arms, cervical spine surgery, appendectomy, hysterectomy, tonsillectomy, bladder suspension surgery, anxiety disorder and insomnia. CURRENT MEDICATIONS: The patient is on estradiol once daily, Xanax, half a tablet 3 times daily, DuoNebs q.6 hourly, melatonin at bedtime, Mirapex 0.5 mg p.o. at bedtime. ALLERGIES: DOXYCYCLINE, LEVAQUIN, and PENICILLIN, all of which cause rash and hives, GEODON and HALDOL. PERSONAL HISTORY: Smokes half pack a day from last 1 month or so prior to which 2 packs a day for nearly 30 years. Denies alcohol abuse or drug abuse. She lives with her . Has one daughter. FAMILY HISTORY: Mother of COPD and its complications at the age of 79 years. Father at the same age. He has had history of cardiomyopathy and hypertension. CODE STATUS: FULL. REVIEW OF SYSTEMS: The following complete review of systems was negative, unless otherwise mentioned in the HPI or below: Constitutional: Weight loss or gain, ability to conduct usual activities. Skin: Rash, itching. Eyes: Double vision, pain. ENT/Mouth: Nose bleeding, neck stiffness, pain, tenderness. Cardiovascular: Palpitations, dyspnea on exertion, orthopnea. Respiratory: Shortness of breath, wheezing, cough, hemoptysis, fever or night sweats. Gastrointestinal: Poor appetite, abdominal pain, heartburn, nausea, vomiting, constipation, or diarrhea. Genitourinary: Urgency, frequency, dysuria, nocturia. Musculoskeletal: Pain, swelling. Neurologic/Psychiatric: Anxiety, depression. Allergy/Immunologic: Skin rash, bleeding tendency. PHYSICAL EXAMINATION: GENERAL: The patient is a 47-year-old female who is currently not in any acute distress. VITAL SIGNS: Blood pressure 106/64, pulse 110 per minute, respiratory rate 20 per minute, temperature 100.4 degrees, on arrival was 103.1 degrees, saturating 96% on 2 liters nasal cannula. NECK: Supple, no elevated JVD. EYES: Extraocular muscles intact. Pupils reacting to light. ORAL CAVITY: Mucous membranes are moist. No exudates or congestion. CARDIOVASCULAR SYSTEM: S1, S2 heard. Regular rhythm. RESPIRATORY SYSTEM: Air entry 1+ bilaterally. No rales, but has rhonchi bilaterally. ABDOMEN: Soft, bowel sounds heard. No tenderness, rigidity or guarding. EXTREMITIES: No peripheral edema or calf tenderness. VASCULAR SYSTEM: Peripheral pulses 1+ bilateral. No ischemic ulcerations or gangrene. CENTRAL NERVOUS SYSTEM: No gross focal deficits noted. Patient is alert, awake , and oriented well. PSYCHIATRIC SYSTEM: The patient's mood is euthymic. No hallucinations or delusions. LABORATORY DATA AND IMAGING DATA: White count of 18, hemoglobin and hematocrit 14 and 42, platelet count 261 with 72% neutrophils, 10% bands. Blood gas done showed pH of 7.38, pCO2 42, pO2 39. Electrolytes stable. BUN 16, creatinine 0.8. Lactic acid initially was 2.1, landon up to 4.9. CK level was 234. Liver enzymes within normal limits. First set of cardiac enzymes are negative. BNP is 12. UA shows negative leukoesterase and nitrites. Chest x-ray done shows no acute cardiopulmonary process. EKG done shows sinus tachycardia at 122 beats per minute. CLINICAL IMPRESSION AND PLAN: The patient will be admitted to medical floor for acute on chronic obstructive pulmonary disease exacerbation. She had acute respiratory failure with hypoxia on admission which is resolved now. Patient also has a temperature of 103 with chills. We will obtain urine and blood cultures. She has multiple allergies to antibiotics and has been started on aztreonam and Zithromax and we will continue same until preliminary cultures are back. It is unclear if patient was tapering her steroids, although she denies it. We will continue her home medications. She will be on Solu-Medrol IV for 24 hours and will be switched over to oral prednisone. Patient states she has been intubated nearly 8 times. She is also on antianxiety and psychotropic medications as well. If it is unclear if any of these are playing a role with her ongoing smoking and underlying chronic obstructive pulmonary disease. We will continue to closely monitor her on medical floor. ASHLEY
[2018-05-23] MEDS ORDERED: Melatonin 3 MG TAB PO SCH (21:00)
[2018-05-23] MEDS ORDERED: Pramipexole Di-HCl 1 MG TAB PO SCH ×2 (21:00)
[2018-05-24 04:52] LABS: #Lymphocytes 1.2 thou/uL (1.20-3.40); #Monocytes 0.5 thou/uL (0.11-0.59); #Neutrophils 13.7 thou/uL (1.40-6.50); %Basophils 0.1 % (0.0-1.0); %Eosinophils 0.1 % (0.0-10.0); %Lymphocytes 7.8 % (21.0-51.0); %Neutrophils 89.1 % (42.0-75.0); Hemoglobin 12.1 g/dL (12.0-16.0); Mean Corpuscular HGB CONC 32.9 g/dL (32.0-36.0); Mean Corpuscular Volume 87.9 fL (78.0-98.0); Mean Platelet Volume 7.9 fL (7.4-10.4); Platelet Count 235 thou/uL (130-400); RBC Distribution Width 13.8 % (11.5-14.5); Red Blood Cell (RBC) Count 4.18 mill/uL (4.20-5.40); White Blood Cell (WBC) Count 15.3 thou/uL (4.8-10.8)
[2018-05-24] MEDS ORDERED: Azithromycin 500 MG in Sodium Chloride 0.9% 250 ML 250 ML IVPB SCH (05:00)
[2018-05-24] MEDS: Sodium Chloride 0.9% 1,000 ML IV SCH (05:05)
[2018-05-24 05:16] LABS: Anion Gap 14 mmol/L (10-20); BUN (Urea Nitrogen) 12 mg/dL (7.0-18.7); Calc. Creatinine Clearance 135 mL/min (70-130); Calcium 9.2 mg/dL (7.8-10.44); Carbon Dioxide 21 mmol/L (22-29); Chloride 110 mmol/L (98-107); Estimated GFR-MDRD Greater than 90; Glucose 132 mg/dL (70-105); Potassium 3.7 mmol/L (3.5-5.1); Sodium 141 mmol/L (136-145)
[2018-05-24] MEDS: Aztreonam 1 GM in Sodium Chloride 0.9% 100 ML IVPB SCH (07:13)
[2018-05-24 07:33] VITALS: BP 128/79; TEMP 98.4
[2018-05-24] MEDS: Nicotine 21 MG PATCH TD SCH (08:39)
[2018-05-24] MEDS: Varenicline Tartrate 0.5 MG TAB PO SCH (08:39)
[2018-05-24] MEDS: Enoxaparin Sodium 40 MG/0.4 ML SYRINGE SC SCH (08:39)
[2018-05-24] MEDS: OLANZapine 5 MG TAB PO SCH (08:40)
[2018-05-24] MEDS ORDERED: predniSONE 20 MG TAB PO SCH (08:45)
--- NOTE | 2018-05-24 11:51 | EKG ---
Test Reason : Blood Pressure : / mmHG Vent. Rate : 122 BPM Atrial Rate : 122 BPM P-R Int : 156 ms QRS Dur : 074 ms QT Int : 290 ms P-R-T Axes : 054 054 059 degrees QTc Int : 413 ms Poor data quality, interpretation may be adversely affected Sinus tachycardia Possible Left atrial enlargement Borderline ECG Confirmed by MARICEL RASMUSSEN, DANDY ([id number]), rewrite editor ARABELLA VALENTIN ([id number]) on 05/24/2018 11:51:22 AM Referred By: Confirmed By:DANDY CONNELLY MD
--- NOTE | 2018-05-24 12:32 | PDOC.PN ---
- Subjective Encounter Start Date: 05/24/18 Encounter Start Time: 08:20 Subjective: wants to go home, feels better - Objective Resuscitation Status: Resuscitation Status FULL:Full Resuscitation MAR Reviewed: Yes Vital Signs & Weight: Vital Signs (12 hours) Temp Pulse Resp BP Pulse Ox 05/24/18 08:00 98.4 F 103 H 16 05/24/18 07:57 103 H 16 95 05/24/18 07:28 98.4 F 93 18 128/79 95 05/24/18 04:00 98.5 F 95 20 102/76 94 L 05/24/18 02:08 16 Weight Weight 186 lb 12.8 oz I&O: 05/23/18 05/24/18 05/25/18 06:59 06:59 06:59 Intake Total 600 938 Output Total 150 Balance 450 938 Result Diagrams: 05/24/18 03:52 05/24/18 03:52 Phys Exam - Physical Examination HEENT: PERRLA, moist MMs Neck: no JVD, supple Respiratory: no wheezing, no rales Cardiovascular: RRR, no significant murmur Gastrointestinal: soft, non-tender, positive bowel sounds Musculoskeletal: no edema, pulses present Neurological: non-focal, moves all 4 limbs Psychiatric: A&O x 3 Dx/Plan (1) COPD exacerbation Code(s): J44.1 - CHRONIC OBSTRUCTIVE PULMONARY DISEASE W (ACUTE) EXACERBATION Status: Acute (2) Anxiety and depression Code(s): F41.9 - ANXIETY DISORDER, UNSPECIFIED; F32.9 - MAJOR DEPRESSIVE DISORDER, SINGLE EPISODE, UNSPECIFIED Status: Chronic Comment: stable (3) Fibromyalgia Status: Chronic (4) Restless leg syndrome Status: Chronic (5) Tobacco dependence Code(s): F17.200 - NICOTINE DEPENDENCE, UNSPECIFIED, UNCOMPLICATED Status: Chronic - Plan may dc home, zithromax, nebs, prednisone taper -: marti cultures are -ve -: says she is not happy to stay here and wants to go home -: adv to come to ER if she spikes temp or her sob worsens * . Review of Systems - Medications/Allergies Allergies/Adverse Reactions: Allergies Allergy/AdvReac Type Severity Reaction Status Date / Time ziprasidone [From Marycruz] Allergy Severe Verified 05/01/18 21:49 Penicillins Allergy Intermediate Hives Verified 05/31/17 17:24 doxycycline Allergy Hives Verified 05/31/17 17:24 haloperidol [From Haldol] Allergy Verified 05/31/17 17:24 levofloxacin [From Levaquin] Allergy Hives Verified 05/31/17 17:24 loratadine [From Claritin] Allergy Rash Verified 05/31/17 17:24 morphine Allergy Verified 11/09/17 03:09 penicillin G Allergy Verified 05/31/17 17:24
--- NOTE | 2018-05-24 23:40 | DIS ---
DATE OF ADMISSION: 05/23/2018 DATE OF DISCHARGE: 05/24/2018 DISCHARGE DISPOSITION: To home. PRIMARY DISCHARGE DIAGNOSIS: Acute on chronic obstructive pulmonary disease exacerbation, resolving. SECONDARY DISCHARGE DIAGNOSES: Anxiety disorder, fibromyalgia, restless leg syndrome, tobacco abuse. PROCEDURES DONE DURING HOSPITALIZATION: Chest x-ray done showed no acute cardiopulmonary process. Blood cultures x2 preliminary results showed no growth. Urine culture, no growth at 12 hours. Had an initial white count of 18 with white count of 15 this morning. Discharge BUN and creatinine is 12 and 0.6. Had a blood gas done yesterday which showed a pH of 7.38, pCO2 of 42, pO2 of 39. DISCHARGE MEDICATIONS: Xanax 0.125 mg p.o. 3 times daily p.r.n. for anxiety, Zithromax 250 mg p.o. daily for another 5 days, prednisone tapering dose starting at 10 mg 3 times daily over a course of 13 days and to discontinue, Mirapex 2 mg p.o. at bedtime, Singulair 10 mg daily, DuoNeb q.6 hourly, estradiol 2 mg p.o. q.a.m., Symbicort inhaler 2 puffs twice daily. ALLERGIES: GEODON, PENICILLIN, DOXYCYCLINE, LEVAQUIN, HALDOL, LORATADINE, MORPHINE. DISCHARGE PLAN: Patient is to follow up with her primary care physician in one week and Dr. Per Grey, her technical customer support specialist in 4-6 weeks. BRIEF COURSE DURING HOSPITALIZATION: Patient initially came to ER with complaints of shortness of breath along with chills. Her saturations were 88% on arrival and had to be placed on BiPAP in IMCU initially and later downgraded to medical floor. She was essentially admitted for COPD exacerbation with acute respiratory failure with hypoxia. Abdullahi cultures have been negative. The patient also had a component of moderate dehydration. The patient also has polypharmacy and has had nearly 8 previous intubations for her chronic COPD with ongoing smoking. This morning, the patient is not wanting to stay in the hospital and would prefer to go home. She wants her medications to be switched over to tablets, so she could go home as patient was insisting about this, she is being discharged home. She was counseled with regard to polypharmacy and psychotropic medications that she is on for her anxiety/mood disorder. Please see a [id number] documentation on [facility] for the day of discharge. The patient has been advised to come to the nearest emergency room if she were to spike fever or develop worsening shortness of breath. ASHLEY
[2018-05-25] MEDS ORDERED: predniSONE 20 MG TAB PO SCH (08:00)
== END 2018-05-24 11:22 | disposition home or self-care (01) | DRG 189 ==
LOC: ERS 02:47 → IMCU/EMU 03:50 → T4-A 11:29
PROVIDERS: ADMIT Hospitalist; ATTEND Hospitalist
PROC: 5A09357 Assistance with Respiratory Ventilation, Less than 24 Consecutive Hours, Continuous Positive Airway Pressure (ICD-10-PCS; principal; 2018-05-23)
DX: J96.01 Acute respiratory failure with hypoxia (principal); J44.1 Chronic obstructive pulmonary disease with (acute) exacerbation; F17.210 Nicotine dependence, cigarettes, uncomplicated; F41.9 Anxiety disorder, unspecified; M79.7 Fibromyalgia; G25.81 Restless legs syndrome; E86.0 Dehydration; B96.89 Other specified bacterial agents as the cause of diseases classified elsewhere
CPT/HCPCS: 36415; 71045; 80048; 80053; 81003; 81015; 82553; 82805; 83605; 83690; 83880; 84484; 85025; 85379; 87040; 87086; 87149; 93005; 94640; 96365; 96366; 96368; 96375; J0456; J1100; J1650; J2060; J2765; J2920; J3475; J3490; J7050; J7506; J7611; J7620

== ENCOUNTER 2018-06-30 04:18 | Emergency (ER) | payer BC ==
[2018-06-30] MEDS ORDERED: Azithromycin 250 MG TAB ONE (04:48)
[2018-06-30] MEDS ORDERED: Dexamethasone 4 mg/ml Vial ONE (04:49)
[2018-06-30] MEDS ORDERED: cefTRIAXone\\ROCEPHIN 1 GM VIAL ONE (04:57)
[2018-06-30] MEDS ORDERED: Sodium Chloride 0.9% 100 ML ONE (04:57)
[2018-06-30 05:00] LABS: #Eosinphils 0.5 thou/uL (0.0-0.7); #Lymphocytes 3.2 thou/uL (1.20-3.40); #Monocytes 0.9 thou/uL (0.11-0.59); #Neutrophils 3.6 thou/uL (1.40-6.50); %Basophils 0.5 % (0.0-1.0); %Eosinophils 6.3 % (0.0-10.0); %Lymphocytes 38.8 % (21.0-51.0); %Monocytes 11.3 % (0.0-10.0); %Neutrophils 43.1 % (42.0-75.0); Mean Corpuscular HGB CONC 32.9 g/dL (32.0-36.0); Mean Corpuscular Hemoglobin 28.4 pg (27.0-31.0); Mean Corpuscular Volume 86.3 fL (78.0-98.0); Mean Platelet Volume 7.6 fL (7.4-10.4); Platelet Count 244 thou/uL (130-400); RBC Distribution Width 14.2 % (11.5-14.5); Red Blood Cell (RBC) Count 4.93 mill/uL (4.20-5.40); White Blood Cell (WBC) Count 8.3 thou/uL (4.8-10.8)
[2018-06-30 05:16] LABS: ALT (SGPT) 16 U/L (8-55); AST (SGOT) 20 U/L (5-34); Albumin 4.1 g/dL (3.5-5.0); Alkaline Phosphatase 63 U/L (40-150); Anion Gap 13 mmol/L (10-20); BUN (Urea Nitrogen) 14 mg/dL (7.0-18.7); Bilirubin, Total 0.4 mg/dL (0.2-1.2); CK (CPK) 260 U/L (29-168); Calc. Creatinine Clearance 0 mL/min (70-130); Calcium 9.4 mg/dL (7.8-10.44); Carbon Dioxide 18 mmol/L (22-29); Chloride 108 mmol/L (98-107); Estimated GFR-MDRD 71; Globulin 3.9 g/dL (2.4-3.5); Glucose 95 mg/dL (70-105); Potassium 3.9 mmol/L (3.5-5.1); Sodium 135 mmol/L (136-145)
[2018-06-30 05:21] LABS: CKMB 2.8 ng/mL (0-6.6); Troponin I Less than 0.010 ng/mL (< 0.028)
[2018-06-30 06:00] LABS: Base Excess-Venous -2.9 mmol/L (0 (+/- 2.5)); Bicarbonate (HCO3v) 20.5 mmol/L (1.0-85.0); CO2 Tension (PvCO2) 31.5 mmHg (41.0-51.0); Calcium, Ionized 1.13 mmol/L (1.12-1.32); Hemoglobin - Calc 14.1 g/dL (12.0-18.0); O2 Tension (PvO2) 70.3 mmHg (35.0-45.0); Potassium 3.6 mmol/L (3.4-4.7); T. Carbon Dioxide 21.5 mmol/L (1.0-85.0); pH (Venous) 7.422 (7.35-7.45); vO2 Saturation-calc 94.5 % (94-98)
--- NOTE | 2018-06-30 07:54 | RAD ---
PORTABLE CHEST 1 VIEW: DATE: 06/30/18. TIME: 4:27 a.m. HISTORY: Dyspnea. FINDINGS: Comparison is made to the exam of 05/23/18. The heart size is normal. The lungs are expanded without focal areas of consolidation, pneumothorax, or pleural effusions. Postop changes of the lower cervical spine are again seen. IMPRESSION: No radiographic evidence of acute cardiopulmonary process. POS: ALETA
--- NOTE | 2018-07-05 13:26 | EKG ---
Test Reason : SOB Blood Pressure : / mmHG Vent. Rate : 095 BPM Atrial Rate : 095 BPM P-R Int : 158 ms QRS Dur : 078 ms QT Int : 352 ms P-R-T Axes : 068 059 060 degrees QTc Int : 442 ms Normal sinus rhythm Possible Left atrial enlargement Borderline ECG Confirmed by DONNIE MCKEON M.D. ([id number]), editorial assistant ARABELLA VALENTIN ([id number]) on 07/05/2018 1:26:45 PM Referred By: Confirmed By:DONNIE MCKEON M.D.
== END 2018-06-30 06:12 | disposition home or self-care (01) ==
LOC: ERS 04:18
DX: J44.1 Chronic obstructive pulmonary disease with (acute) exacerbation (principal); F41.9 Anxiety disorder, unspecified; F17.210 Nicotine dependence, cigarettes, uncomplicated; Z79.899 Other long term (current) drug therapy
CPT/HCPCS: 36415; 71045; 80053; 82330; 82553; 82803; 84484; 85025; 93005; 96365; 96375; J0696; J1100; J7050; J7620

== ENCOUNTER 2018-08-11 19:11 | Emergency (ER) | payer BC ==
[2018-08-11 19:45] LABS: Hemoglobin 14.2 g/dL (12.0-16.0); Mean Corpuscular HGB CONC 32.5 g/dL (32.0-36.0); Mean Corpuscular Hemoglobin 28.6 pg (27.0-31.0); Mean Corpuscular Volume 87.9 fL (78.0-98.0); Mean Platelet Volume 7.8 fL (7.4-10.4); Platelet Count 276 thou/uL (130-400); RBC Distribution Width 14.1 % (11.5-14.5); Red Blood Cell (RBC) Count 4.99 mill/uL (4.20-5.40); White Blood Cell (WBC) Count 17.1 thou/uL (4.8-10.8)
[2018-08-11] MEDS ORDERED: Magnesium Sulfate 2 GM/100 ML BAG ONE (19:58)
[2018-08-11] MEDS ORDERED: Dexamethasone 10 MG/ML VIAL ONE (19:58)
[2018-08-11 20:01] LABS: Band 4 % (5-11); Lymphocytes 7 % (21-51); MDiff Complete? YES; Monocytes 6 % (0-10); Neutrophil 83 % (42-75); PLT Morphology Comment Appears Adequate; RBC Morphology Normal
--- NOTE | 2018-08-11 20:05 | RAD ---
RADIOGRAPH CHEST 1 VIEW: HISTORY: 48-year-old female with chest pain and dyspnea. FINDINGS: There are no air space densities, pulmonary edema, pneumothorax, or cardiomegaly. The lateral costop hrenic angles are sharp. IMPRESSION: No acute cardiopulmonary findings. raina POS: GRACIELA
[2018-08-11 20:06] LABS: ALT (SGPT) 20 U/L (8-55); AST (SGOT) 20 U/L (5-34); Albumin 4.3 g/dL (3.5-5.0); Alkaline Phosphatase 65 U/L (40-150); Anion Gap 16 mmol/L (10-20); BUN (Urea Nitrogen) 10 mg/dL (7.0-18.7); Bilirubin, Total 0.4 mg/dL (0.2-1.2); CK (CPK) 243 U/L (29-168); Calc. Creatinine Clearance 0 mL/min (70-130); Calcium 9.6 mg/dL (7.8-10.44); Carbon Dioxide 22 mmol/L (22-29); Chloride 103 mmol/L (98-107); Estimated GFR-MDRD 53; Globulin 3.5 g/dL (2.4-3.5); Glucose 100 mg/dL (70-105); Potassium 4.2 mmol/L (3.5-5.1); Protein, Total 7.8 g/dL (6.0-8.3); Sodium 137 mmol/L (136-145)
[2018-08-11 20:14] LABS: CKMB 3.3 ng/mL (0-6.6); Troponin I Less than 0.010 ng/mL (< 0.028)
[2018-08-11] MEDS ORDERED: Haloperidol Lactate 5 MG/ML VIAL ONE (21:07)
[2018-08-11] MEDS ORDERED: diphenhydrAMINE 50 MG/ML VIAL ONE (21:12)
[2018-08-11] MEDS ORDERED: Albuterol Sulfate 2.5 mg/0.5 ml Neb ONE (21:27)
[2018-08-11] MEDS ORDERED: Azithromycin 500 MG VIAL ONE (21:32)
[2018-08-11 21:51] LABS: Base Excess-Venous 0.1 mmol/L (0 (+/- 2.5)); Bicarbonate (HCO3v) 23.4 mmol/L (1.0-85.0); CO2 Tension (PvCO2) 33.5 mmHg (41.0-51.0); Calcium, Ionized 1.12 mmol/L (1.12-1.32); Hemoglobin - Calc 15.5 g/dL (12.0-18.0); O2 Tension (PvO2) 167.3 mmHg (35.0-45.0); Potassium 3.6 mmol/L (3.4-4.7); T. Carbon Dioxide 24.4 mmol/L (1.0-85.0); pH (Venous) 7.452 (7.35-7.45); vO2 Saturation-calc 99.6 % (94-98)
[2018-08-11] MEDS ORDERED: cefTRIAXone\\ROCEPHIN 2 GM VIAL ONE (23:08)
== END 2018-08-11 23:45 | disposition home or self-care (01) ==
LOC: ERS 19:11
DX: J44.1 Chronic obstructive pulmonary disease with (acute) exacerbation (principal); F41.9 Anxiety disorder, unspecified; F17.210 Nicotine dependence, cigarettes, uncomplicated; Z79.891 Long term (current) use of opiate analgesic; Z79.899 Other long term (current) drug therapy
CPT/HCPCS: 71045; 80053; 82330; 82550; 82553; 82803; 84484; 85025; 87804; 93005; 96365; 96367; 96375; J0456; J0696; J1100; J1200; J1630; J3475; J7611; J7620

== ENCOUNTER 2018-09-08 14:28 | Inpatient (IN) | payer BC ==
[2018-09-08] MEDS ORDERED: Lorazepam 2 MG/ML VIAL ONE (15:10)
[2018-09-08] MEDS ORDERED: methylPREDNISolone Sod Succ/PF 125 MG/2 ML VIAL ONE (15:11)
[2018-09-08 15:12] LABS: #Lymphocytes 1.2 thou/uL (1.20-3.40); #Monocytes 0.4 thou/uL (0.11-0.59); #Neutrophils 14.2 thou/uL (1.40-6.50); %Basophils 0.2 % (0.0-1.0); %Eosinophils 0.1 % (0.0-10.0); %Lymphocytes 7.3 % (21.0-51.0); %Monocytes 2.7 % (0.0-10.0); %Neutrophils 89.7 % (42.0-75.0); Hemoglobin 14.1 g/dL (12.0-16.0); Mean Corpuscular HGB CONC 32.1 g/dL (32.0-36.0); Mean Corpuscular Volume 87.2 fL (78.0-98.0); Mean Platelet Volume 7.6 fL (7.4-10.4); Platelet Count 295 thou/uL (130-400); RBC Distribution Width 14.4 % (11.5-14.5); Red Blood Cell (RBC) Count 5.04 mill/uL (4.20-5.40); White Blood Cell (WBC) Count 15.9 thou/uL (4.8-10.8)
[2018-09-08 15:37] LABS: ALT (SGPT) 20 U/L (8-55); AST (SGOT) 19 U/L (5-34); Albumin 4.4 g/dL (3.5-5.0); Alkaline Phosphatase 61 U/L (40-150); Anion Gap 15 mmol/L (10-20); BUN (Urea Nitrogen) 18 mg/dL (7.0-18.7); Bilirubin, Total 0.4 mg/dL (0.2-1.2); Calc. Creatinine Clearance 0 mL/min (70-130); Calcium 9.9 mg/dL (7.8-10.44); Carbon Dioxide 21 mmol/L (22-29); Chloride 108 mmol/L (98-107); Estimated GFR-MDRD 83; Globulin 3.6 g/dL (2.4-3.5); Glucose 128 mg/dL (70-105); Potassium 4.1 mmol/L (3.5-5.1); Sodium 140 mmol/L (136-145)
[2018-09-08] MEDS ORDERED: Azithromycin 500 MG VIAL ONE (15:37)
[2018-09-08] MEDS ORDERED: cefTRIAXone\\ROCEPHIN 1 GM VIAL ONE (15:37)
--- NOTE | 2018-09-08 15:42 | RAD ---
CHEST 1 VIEW: Date: 09/08/18 HISTORY: Cough. COMPARISON: Radiograph dated 08/11/18. FINDINGS: Lungs are clear. No pneumothorax or effusion. Cardiac silhouette and mediastinal contour within yasmani l limits. Old right clavicular injury. Incomplete evaluation of cervical fusion hardware. IMPRESSION: No acute intrathoracic abnormality. POS: TPC
[2018-09-08] MEDS ORDERED: Magnesium 2 GM/50 ML 2 GM in Premix Bag 1 BAG IVPB SCH (15:45)
[2018-09-08] MEDS ORDERED: Ondansetron HCl/PF 4 MG/2 ML Vial IVP PRN (20:09)
[2018-09-08] MEDS ORDERED: HYDROcodone/Acetaminophen 5/325 mg Tablet PO PRN ×2 (20:09)
[2018-09-08] MEDS ORDERED: Ondansetron ODT 4 MG TAB SL PRN (20:09)
[2018-09-08] MEDS ORDERED: Acetaminophen 325 MG TAB PO PRN (20:09)
[2018-09-08] MEDS: Sodium Chloride 0.9% 1,000 ML IV SCH (20:40)
[2018-09-08] MEDS: Nicotine 14 MG PATCH TD SCH (20:40)
[2018-09-08] MEDS: HYDROcodone/Acetaminophen 5/325 mg Tablet PO PRN (20:40)
[2018-09-08] MEDS: ALPRAZolam 0.25 MG TAB PO PRN (20:42)
[2018-09-08] MEDS ORDERED: Pramipexole Di-HCl 1 MG TAB PO PRN (21:11)
[2018-09-08] MEDS: Melatonin 3 MG TAB PO PRN (21:25)
[2018-09-08 21:43] VITALS: BMI 26.9
--- NOTE | 2018-09-08 23:58 | CON ---
DATE OF CONSULTATION: 09/08/2018 CONSULTING PHYSICIAN: Hospitalist group. REASON FOR CONSULTATION: COPD exacerbation. HISTORY OF PRESENT ILLNESS: Mely is well known to me from many hospitalizations in the past. She came to the hospital today with increasing shortness of breath over the last 3 or 4 days. She elle davis does not like to use this hospital because she feels like the hospital personnel do not believe h er complaints. She was seen at [facility] and given prescription for prednisone and sent home. She continued to be short of breath and came to the ER here today for further evaluat ion. Unfortunately, she is still smoking about a pack of cigarettes per day despite being told to qu it in the past. PAST MEDICAL HISTORY: 1. Asthma/COPD. 2. Vocal cord dysfunction with multiple intubations. 3. Left upper lobe lung nodule. 4. Anxiety. 5. Tobacco abuse. 6. Restless leg syndrome. PAST SURGICAL HISTORY: 1. Multiple fiberoptic laryngoscopy is to document that she has vocal cord dysfunction. 2. Appendectomy. 3. Hysterectomy. 4. Tonsillectomy. 5. Ulnar nerve transposition. ALLERGIES: PENICILLIN, LEVAQUIN, HALDOL, DOXYCYCLINE. MEDICATIONS PRIOR TO ADMISSION: Trelegy and DuoNeb. SOCIAL HISTORY: Smokes at least a pack a day. Does not consume alcohol. She is disabled. REVIEW OF SYSTEMS: Otherwise, negative. PHYSICAL EXAMINATION: VITAL SIGNS: O2 sat currently 97% on room air, pulse 85, respirations 18. GENERAL: She is awake and alert and in no acute distress. HEENT: Unremarkable. NECK: No adenopathy or JVD. LUNGS: Diffuse bilateral expiratory wheezing with prolonged expiratory phase. CARDIOVASCULAR: S1, S2 regular. ABDOMEN: Soft. EXTREMITIES: No edema. LABORATORY DATA: Sodium 140, potassium 4.1, chloride 108, CO2 is 21, BUN 18, creatinine 0.7, glucose 128. White blood cell count 15.9, hematocrit 44, platelet count 295. Chest x-ray shows no acute in filtrate. ASSESSMENT: 1. Chronic obstructive pulmonary disease exacerbation. 2. Tobacco abuse. PLAN: She needs to be admitted for nebulization treatments, IV steroids, etc. I will follow with aleksandr grigsby
[2018-09-09] MEDS: Sodium Chloride 0.9% 1,000 ML IV SCH (05:38)
[2018-09-09] MEDS: Budesonide 0.5 MG/2 ML NEB INH SCH ×2 (06:15→18:57)
[2018-09-09] MEDS: Arformoterol 15 MCG/2 ML NEB NEB SCH ×2 (06:18→18:57)
[2018-09-09] MEDS: ALPRAZolam 0.25 MG TAB PO PRN (07:02)
[2018-09-09] MEDS ORDERED: ALPRAZolam 0.25 MG TAB PO PRN (07:16)
[2018-09-09] MEDS ORDERED: ESTRADIOL 2 MG PO SCH (09:00)
[2018-09-09] MEDS ORDERED: DULoxetine 30 MG CAP PO SCH (09:00)
[2018-09-09] MEDS: Azithromycin 250 MG TAB PO SCH (09:09)
[2018-09-09] MEDS: DULoxetine 30 MG CAP PO SCH (09:09)
[2018-09-09] MEDS: OLANZapine 5 MG TAB PO SCH (09:10)
[2018-09-09] MEDS: Estradiol 1 MG TAB PO SCH (09:11)
[2018-09-09] MEDS: HYDROcodone/Acetaminophen 5/325 mg Tablet PO PRN ×2 (09:15→20:51)
[2018-09-09] MEDS ORDERED: Melatonin 3 MG TAB PO PRN (09:26)
--- NOTE | 2018-09-09 09:35 | PRG ---
DATE OF SERVICE: 09/09/2018 She is complaining of severe anxiety from the steroids. She is upset that she has to take Xanax inst ead of being able to take IV Ativan last night for her anxiety attack. PHYSICAL EXAMINATION: VITAL SIGNS: On exam temperature is 98.8, pulse 81, respirations 18, O2 sat 92% on room air, blood p ressure 119/74. HEENT: Unremarkable. NECK: No JVD. CHEST: She has wheezing bilaterally, a little better than yesterday. Part of the wheezing is magnif ied by her purposely abducting her vocal cords. ABDOMEN: Soft, nontender. EXTREMITIES: No edema. ASSESSMENT: 1. Chronic obstructive pulmonary disease exacerbation. 2. Vocal cord dysfunction. 3. Anxiety. PLAN: 1. I have written for some Ativan that she can have IV as needed. 2. Ms. Rodriguez's usual course of hospitalization is she gets better in a couple days and decides to either leave AMA or she goes home prematurely. I would expect this hospitalization to be no differen t from those.
[2018-09-09] MEDS: Lorazepam 2 MG/ML VIAL SLOW IVP PRN ×3 (11:23→23:50)
--- NOTE | 2018-09-09 12:43 | HP ---
DATE OF ADMISSION: 09/09/2018 CHIEF COMPLAINT: Shortness of breath. HISTORY OF PRESENT ILLNESS: Ms. Rodriguez is a 48-year-old female well known to our service for multip le hospitalizations for shortness of breath with recent admission 3 months ago, presented again to [facility] emergency room with above-mentioned complaint. History is mainly obtained by the patient herself. Electronic medical records have been reviewed. Ms. Rodriguez reports that she recently was feeling worsening shortness of breath and presented to [facility] where she was "pumped full steroids" and was discharged. She feels that the steroids made her situation worse. She reports that nebulizers are not working either. She feels that as she is extr chandrika anxious and needs IV Ativan that will help with her symptoms. When she presented to the emergency room, she was not hypoxic. Oxygen saturation was 96% on room air . She was found to be very anxious and received treatment with IV Ativan along with the nebulizer, e mpiric antibiotic, magnesium sulfate, Solu-Medrol. She is now being admitted for possible COPD exace rbation. At the time of my examination this morning, the patient reports worsening anxiety and resultant short ness of breath. She continues to smoke, but reports that she is down from 2 pack to 1/2 pack a day. She normally follows up with Dr. Grey as an outpatient. PAST MEDICAL HISTORY: 1. COPD. 2. Obstructive sleep apnea, on home BiPAP at night. 3. Restless leg syndrome. 4. Tobacco abuse. PAST SURGICAL HISTORY: 1. Appendectomy 2. Cervical spinal surgery. 3. Ulnar nerve transposition both arms. 4. Tonsillectomy 5. Bladder suspension surgery. ALLERGIES: DOXYCYCLINE, LEVOFLOXACIN, PENICILLIN, GEODON, HALDOL. SOCIAL HISTORY: Half pack of cigarette, down from 2 packs a day for nearly 30 years. No history of drug or alcohol abuse. Lives with her . FAMILY HISTORY: Mother of COPD and its complications and father at the age of 79 with hist ory of cardiomyopathy and hypertension. CODE STATUS: FULL CODE. HOME MEDICATIONS: Cymbalta 1 tablet daily, prednisone 50 mg a day, estradiol 2 mg daily, pramipexole 4 tablets p.o. at bedtime, Zyprexa 2.5 mg daily, melatonin 3 mg at bedtime, DuoNebs p.r.n., Tylenol with codeine every 4 hours p.r.n., Xanax 0.125 p.o. t.i.d. p.r.n. REVIEW OF SYSTEMS: A 12-point review of systems is done and is negative except for those mentioned i n the history and physical. LABORATORY DATA: CBC shows WBCs at 15.9, 89% neutrophils. Serum chemistries unremarkable. Chest x- ray by my review has no evidence to suggest pleural effusion, infiltrate or edema. PHYSICAL EXAMINATION: VITAL SIGNS: Most recent vital signs, temperature 98.8, pulse of 71, respirations 18, saturating 95% on room air, blood pressure 119/74. GENERAL: No acute distress, awake, alert, oriented x3. HEENT: Mucous membrane is moist and pink. No oropharyngeal exudate or erythema. Head is normocepha lic, atraumatic. Pupils equal, reactive to light and accommodation. Extraocular movement intact. NECK: Supple without any lymphadenopathy, JVD or bruit. CHEST: Evaluation showed bilateral wheezing, but it seems to be also coming a lot from her throat as well. For some reason, she seems to be willfully exacerbating her wheezing on examination. ABDOMEN: Soft, nontender, nondistended. EXTREMITIES: Free of any cyanosis, clubbing, or edema. NEUROLOGIC: Nonfocal. SKIN: Free of any rashes or bruises. Skin is warm and dry. PSYCHIATRIC: Normal affect. The patient does tend to get easily upset talking about her anxiety. IMPRESSION AND PLAN: 1. Chronic obstructive pulmonary disease. Continue steroids, nebulizers, and empiric antibiotics as above. Dr. Grey has been consulted and he is also following the patient along. She is currently hemodynamically stable. 2. Tobacco abuse. Continue the nicotine patch. 3. Anxiety and depression, restart home medications. 4. Deep venous thrombosis and gastrointestinal prophylaxis and walking program. DISPOSITION: Ms. Rodriguez was admitted to the hospital for acute COPD exacerbation without any eviden ce of hypoxia. This is compounded by her anxiety. Further management will depend upon her clinical course. Estimated length of stay 2-3 midnights.
[2018-09-09] MEDS: Nicotine 14 MG PATCH TD SCH (20:52)
[2018-09-09] MEDS: Pramipexole Di-HCl 1 MG TAB PO SCH (20:52)
[2018-09-09] MEDS: Melatonin 3 MG TAB PO PRN (20:53)
[2018-09-09] MEDS ORDERED: MELATONIN PO SCH (21:00)
[2018-09-09] MEDS ORDERED: PRAMIPEXOLE DI HCL PO SCH (21:00)
[2018-09-09] MEDS ORDERED: PYRIDOXINE PO SCH (21:00)
[2018-09-10] MEDS: Lorazepam 2 MG/ML VIAL SLOW IVP PRN ×4 (05:55→23:54)
[2018-09-10] MEDS: Arformoterol 15 MCG/2 ML NEB NEB SCH ×2 (06:35→23:50)
[2018-09-10] MEDS: Budesonide 0.5 MG/2 ML NEB INH SCH ×2 (06:35→19:22)
[2018-09-10] MEDS: OLANZapine 5 MG TAB PO SCH (08:30)
[2018-09-10] MEDS: Estradiol 1 MG TAB PO SCH (08:31)
[2018-09-10] MEDS: DULoxetine 30 MG CAP PO SCH (08:31)
[2018-09-10] MEDS: Azithromycin 250 MG TAB PO SCH (08:32)
--- NOTE | 2018-09-10 09:08 | PRG ---
DATE OF SERVICE: 09/10/2018 She says she feels about the same, but thinks that things are starting to break up a little in her ch est. PHYSICAL EXAMINATION: VITAL SIGNS: Temperature is 98.1, pulse 80, respirations 18, O2 sats 97%, blood pressure 115/68. HEENT: Unremarkable. NECK: No JVD. LUNGS: Diffuse mild bilateral wheezing. CARDIAC: S1 and S2 regular. ABDOMEN: Soft. EXTREMITIES: No edema. ASSESSMENT: 1. Chronic obstructive pulmonary disease with exacerbation. 2. Vocal cord dysfunction. PLAN: Continue steroids, nebulization treatments and azithromycin. Hopefully, she can go home soon.
--- NOTE | 2018-09-10 13:21 | PDOC.PN ---
- Subjective Encounter Start Date: 09/10/18 Encounter Start Time: 13:19 Subjective: reports that she is still wheezing -: No new events. RN reports that pt goes down multiple times - Objective MAR Reviewed: Yes Vital Signs & Weight: Vital Signs (12 hours) Temp Pulse Resp BP Pulse Ox 09/10/18 10:33 80 16 97 09/10/18 08:26 97 09/10/18 07:35 98.1 F 80 18 117/68 97 09/10/18 06:35 95 16 96 09/10/18 06:32 95 16 96 09/10/18 02:36 87 09/10/18 02:35 87 13 98 Weight Admit Weight 172 lb Weight 172 lb I&O: 09/09/18 09/10/18 09/11/18 06:59 06:59 06:59 Intake Total 1020 Balance 1020 Result Diagrams: 09/08/18 14:54 09/08/18 14:54 Additional Labs: Laboratory Tests 09/07/17 09/08/17 09/09/17 03:34 03:47 03:30 WBC 13.4 H 15.9 H 15.5 H 09/10/17 03:27 WBC 16.2 H Phys Exam - Physical Examination Constitutional: NAD HEENT: PERRLA, moist MMs, sclera anicteric, TM's clear, oral pharynx no lesions , 2+ tonsils Neck: no nodes, no JVD, supple, full ROM Respiratory: no wheezing, no rales, no rhonchi, clear to auscultation bilateral Cardiovascular: RRR, no significant murmur Gastrointestinal: soft, non-tender, no distention, positive bowel sounds Musculoskeletal: no edema, pulses present Neurological: non-focal, normal sensation, moves all 4 limbs Psychiatric: normal affect, A&O x 3 Dx/Plan (1) COPD exacerbation Code(s): J44.1 - CHRONIC OBSTRUCTIVE PULMONARY DISEASE W (ACUTE) EXACERBATION Status: Acute (2) Anxiety disorder Code(s): F41.9 - ANXIETY DISORDER, UNSPECIFIED Status: Acute Qualifiers: Anxiety disorder type: unspecified anxiety disorder Qualified Code(s): F41.9 - Anxiety disorder, unspecified (3) Fibromyalgia Status: Chronic (4) Restless leg syndrome Status: Chronic (5) Tobacco dependence Code(s): F17.200 - NICOTINE DEPENDENCE, UNSPECIFIED, UNCOMPLICATED Status: Chronic (6) Vocal cord dysfunction Code(s): J38.3 - OTHER DISEASES OF VOCAL CORDS Status: Chronic Comment: as above - Plan DVT proph w/SCDs cont nebs,steroids,O2 prn.No wheezing on exam excpet induced by pt herself -: DC home when Ok w PCCM.appreciate input * . Review of Systems - Review of Systems Constitutional: negative: fever, chills, sweats, weakness, malaise, other Respiratory: Shortness of Breath, SOB with Excertion, Wheezing. negative: Cough , Dry, Hemoptysis, Pleuritic Pain, Sputum Cardiovascular: negative: chest pain, palpitations, orthopnea, paroxysmal nocturnal dyspnea, edema, light headedness, other Gastrointestinal: negative: Nausea, Vomiting, Abdominal Pain, Diarrhea, Constipation, Melena, Hematochezia, Other Genitourinary: negative: Dysuria, Frequency, Incontinence, Hematuria, Retention , Other Musculoskeletal: negative: Neck Pain, Shoulder Pain, Arm Pain, Back Pain, Hand Pain, Leg Pain, Foot Pain, Other Skin: negative: Rash, Lesions, Shamar, Bruising, Other Neurological: negative: Weakness, Numbness, Incoordination, Change in Speech, Confusion, Seizures, Other - Medications/Allergies Allergies/Adverse Reactions: Allergies Allergy/AdvReac Type Severity Reaction Status Date / Time ziprasidone [From Geodon] Allergy Severe Verified 05/01/18 21:49 Penicillins Allergy Intermediate Hives Verified 05/31/17 17:24 doxycycline Allergy Hives Verified 05/31/17 17:24 haloperidol [From Haldol] Allergy Verified 05/31/17 17:24 levofloxacin [From Levaquin] Allergy Hives Verified 05/31/17 17:24 loratadine [From Claritin] Allergy Rash Verified 05/31/17 17:24 morphine Allergy Verified 11/09/17 03:09 penicillin G Allergy Verified 05/31/17 17:24 Medications: Current Medications Hydrocodone Bitart/Acetaminophen (Orting 5/325) 1 tab PO Q4H PRN PRN Reason: Moderate Pain (4-6) Last Admin: 09/09/18 20:51 Dose: 1 tab Albuterol/Ipratropium (Duoneb) 3 ml NEB [id number] [place] Last Admin: 09/10/18 10:33 Dose: 3 ml Albuterol/Ipratropium (Duoneb) 3 ml NEB [id number] PRN PRN Reason: SOB &/or Wheezing Arformoterol Tartrate (Brovana) 15 mcg NEB BID-RT [facility] Last Admin: 09/10/18 06:35 Dose: 15 mcg Azithromycin (Zithromax) 250 mg PO DAILY [place] Stop: 09/12/18 09:01 Last Admin: 09/10/18 08:32 Dose: 250 mg Budesonide (Pulmicort Neb Solution) 0.5 mg INH BID-RT [facility] Last Admin: 09/10/18 06:35 Dose: 0.5 mg Duloxetine HCl (Cymbalta) 30 mg PO DAILY [facility] Last Admin: 09/10/18 08:31 Dose: 30 mg Estradiol (Estrace) 2 mg PO DAILY [facility] Last Admin: 09/10/18 08:31 Dose: 2 mg Lorazepam (Ativan) 1 mg SLOW IVP Q6H PRN PRN Reason: Anxiety/Agitation Last Admin: 09/10/18 12:05 Dose: 1 mg Melatonin (Melatonin) 3 mg PO HSPRN PRN PRN Reason: Insomnia Last Admin: 09/09/18 20:53 Dose: 3 mg Methylprednisolone Sodium Succinate (Solu-Medrol) 20 mg IVP Q6HR [facility] Last Admin: 09/10/18 12:01 Dose: 20 mg Nicotine (Nicoderm Patch) 14 mg TD Q24HR [facility] Last Admin: 09/09/18 20:52 Dose: 14 mg Olanzapine (Zyprexa) 2.5 mg PO DAILY [facility] Last Admin: 09/10/18 08:30 Dose: Not Given Pramipexole Dihydrochloride (Mirapex) 2 mg PO HSPRN PRN PRN Reason: RESTLESS LEG SYMPTOMS Last Admin: 09/08/18 21:24 Dose: 2 mg Pramipexole Dihydrochloride (Mirapex) 1 mg PO HS [facility] Last Admin: 09/09/18 20:52 Dose: 1 mg Sodium Chloride (Flush - Normal Saline) 10 ml IVF Q12HR [place] Last Admin: 09/10/18 08:32 Dose: 10 ml Sodium Chloride (Flush - Normal Saline) 10 ml IVF PRN PRN PRN Reason: Saline Flush Last Admin: 09/10/18 12:04 Dose: 10 ml
[2018-09-10] MEDS: HYDROcodone/Acetaminophen 5/325 mg Tablet PO PRN ×2 (15:23→21:56)
[2018-09-10 21:34] VITALS: BP 133/76; TEMP 98.5
[2018-09-10] MEDS: Pramipexole Di-HCl 1 MG TAB PO SCH (21:57)
[2018-09-10] MEDS: Melatonin 3 MG TAB PO PRN (21:57)
[2018-09-10] MEDS: Nicotine 14 MG PATCH TD SCH (21:57)
[2018-09-11] MEDS: Lorazepam 2 MG/ML VIAL SLOW IVP PRN ×2 (05:45→11:54)
[2018-09-11] MEDS: Budesonide 0.5 MG/2 ML NEB INH SCH (06:49)
[2018-09-11] MEDS: Arformoterol 15 MCG/2 ML NEB NEB SCH (06:49)
--- NOTE | 2018-09-11 09:07 | PRG ---
DATE OF SERVICE: 09/11/2018 Ms. Rodriguez is alternating between histrionics and catatonic behavior this morning. She is claiming that her throat is closing down. She is on a BiPAP and appears to be comfortable on that. PHYSICAL EXAMINATION: VITAL SIGNS: O2 sats 98%, blood pressure 133/76, pulse 89. HEENT: Remarkable for no significant findings. LUNGS: Clear. CARDIAC: S1 and S2 regular. ABDOMEN: Soft. EXTREMITIES: No edema. ASSESSMENT: This patient has severe psychiatric issues that is manifested by a conversion type disor qing, i.e., vocal cord dysfunction. The best we can do is continue to treat her with anxiolytics as n tee. Hopefully, she can go home in the next day or two.
[2018-09-11] MEDS ORDERED: ALPRAZolam 0.25 MG TAB PO SCH (10:00)
[2018-09-11] MEDS: Estradiol 1 MG TAB PO SCH (10:34)
[2018-09-11] MEDS: DULoxetine 30 MG CAP PO SCH (10:35)
[2018-09-11] MEDS: Azithromycin 250 MG TAB PO SCH (10:35)
--- NOTE | 2018-09-12 02:56 | DIS ---
DATE OF ADMISSION: 09/08/2018 DATE OF DISCHARGE: 09/11/2018 CONDITION AT THE TIME OF DISCHARGE: Stable and improved. DISCHARGE DIAGNOSES: 1. Acute respiratory distress likely chronic obstructive pulmonary disease exacerbation. 2. Anxiety exacerbating respiratory distress. 3. History of vocal cord dysfunction. 4. History of anxiety and depression. 5. Tobacco abuse. 6. Restless leg syndrome. DISCHARGE MEDICATIONS: Resume home medications as per the [facility]. NEW MEDICATIONS: Medrol Dosepak, azithromycin 250 mg daily for 3 more days and nicotine patch 14 mg daily. PRIMARY CARE PHYSICIAN: Dr. Melvina Copeland at [facility]. PRIMARY PSYCHIATRIST: Dr. Tim Hutchinson at [facility]. INHOUSE CONSULTATION: Pulmonary Medicine, Dr. Grey. PROCEDURES DONE IN THE HOSPITAL: Chest x-ray. HISTORY OF PRESENTING ILLNESS: Ms. Rodriguez is a 48-year-old female with known history of vocal cord dysfunction and COPD, who continues to smoke with frequent hospitalization for the same problem came back with complaints of shortness of breath. She was admitted once again for presumptive COPD exacer bation on IV steroids, nebulizers, and oxygen. Please see admission H and P for further detail. Pul monary Medicine was consulted and Dr. Grey follow the patient along. HOSPITAL COURSE: The patient exhibited slow improvement, but most of her symptoms were exacerbated b y anxiety. Patient was never hypoxic and demonstrated good air entry, but she was found to be willfu lly exacerbating her symptoms on examination. She demanded IV and oral antianxiety medication, which was hard to adjust based on her demand. Eventually, this morning, she decided that she can go home and restart her Xanax, as I refused to give her more IV Ativan. Once again, I am not sure if this wa s actual COPD exacerbation as the patient continued to complain of her throat closing and shortness o f breath despite receiving long multiple nebulizers, round the clock IV steroids, oxygen, and IV Ativ an at scheduled interval even though it was ordered as p.r.n. She was seen and examined prior to discharge. She is hemodynamically stable. Vital signs, oxygen sa turation 97%-98% on room air, blood pressure 133/76. No wheezing on exam. Rate and rhythm regular. She will follow up with primary care physician and psychiatrist in 1-2 weeks. Total time spent 32 minutes.
== END 2018-09-11 14:15 | disposition home or self-care (01) | DRG 192 ==
LOC: ERS 14:28 → T4-B 19:13
PROVIDERS: ADMIT Internal Medicine; ATTEND Internal Medicine
DX: J44.1 Chronic obstructive pulmonary disease with (acute) exacerbation (principal); G47.33 Obstructive sleep apnea (adult) (pediatric); G25.81 Restless legs syndrome; F17.210 Nicotine dependence, cigarettes, uncomplicated; Z88.0 Allergy status to penicillin; Z88.8 Allergy status to other drugs, medicaments and biological substances; Z79.899 Other long term (current) drug therapy; F41.9 Anxiety disorder, unspecified; F32.9 Major depressive disorder, single episode, unspecified; F44.9 Dissociative and conversion disorder, unspecified; J38.3 Other diseases of vocal cords; M79.7 Fibromyalgia
CPT/HCPCS: 71045; 80053; 85025; 87804; 93005; 94640; 94660; 96365; 96367; 96375; J0456; J0696; J2060; J2920; J2930; J7620; J7626

== ENCOUNTER 2018-10-22 11:13 | Inpatient (IN) | payer BC ==
[2018-10-22] MEDS ORDERED: methylPREDNISolone Sod Succ/PF 125 MG/2 ML VIAL ONE (12:27)
[2018-10-22] MEDS ORDERED: Magnesium 2 GM/50 ML BAG (IN WATER) ONE (12:27)
--- NOTE | 2018-10-22 12:50 | RAD ---
SINGLE VIEW OF THE CHEST: Comparison: 09-08-18 History: Cough, wheezing, shortness of breath for three days. FINDINGS: Single view of the chest shows a normal sized cardiomediastinal silhouette. There is no evidence of c onsolidation, mass, or pleural effusion. Hardware is seen in the cervical spine. IMPRESSION: No evidence of acute cardiopulmonary disease. POS: [facility]
[2018-10-22 13:02] LABS: #Basophils 0.1 thou/uL (0.0-0.2); #Eosinphils 0.4 thou/uL (0.0-0.7); #Neutrophils 7.5 thou/uL (1.40-6.50); %Basophils 0.8 % (0.0-1.0); %Lymphocytes 24.9 % (21.0-51.0); %Monocytes 8.2 % (0.0-10.0); %Neutrophils 63.2 % (42.0-75.0); Hemoglobin 13.9 g/dL (12.0-16.0); Mean Corpuscular HGB CONC 32.7 g/dL (32.0-36.0); Mean Corpuscular Hemoglobin 28.7 pg (27.0-31.0); Mean Corpuscular Volume 87.8 fL (78.0-98.0); Mean Platelet Volume 8.2 fL (7.4-10.4); Platelet Count 207 thou/uL (130-400); RBC Distribution Width 14.5 % (11.5-14.5); Red Blood Cell (RBC) Count 4.83 mill/uL (4.20-5.40); White Blood Cell (WBC) Count 11.9 thou/uL (4.8-10.8)
[2018-10-22] MEDS ORDERED: Albuterol Sulfate 2.5 mg/3 ml Neb ONE (13:04)
[2018-10-22] MEDS ORDERED: Lorazepam 1 MG TAB ONE (13:19)
[2018-10-22 13:31] LABS: ALT (SGPT) 15 U/L (8-55); AST (SGOT) 20 U/L (5-34); Albumin 3.9 g/dL (3.5-5.0); Alkaline Phosphatase 61 U/L (40-150); Anion Gap 11 mmol/L (10-20); BUN (Urea Nitrogen) 10 mg/dL (7.0-18.7); Bilirubin, Total 0.5 mg/dL (0.2-1.2); Calc. Creatinine Clearance 0 mL/min (70-130); Calcium 9.3 mg/dL (7.8-10.44); Carbon Dioxide 24 mmol/L (22-29); Chloride 108 mmol/L (98-107); Estimated GFR-MDRD 82; Globulin 3.3 g/dL (2.4-3.5); Glucose 102 mg/dL (70-105); Protein, Total 7.2 g/dL (6.0-8.3); Sodium 139 mmol/L (136-145)
[2018-10-22] MEDS ORDERED: Azithromycin 250 MG TAB PO SCH (15:30)
[2018-10-22 16:00] LABS: Actual Bicarbonate (HCO3a) 23.2 mEq/L (22-28); Analyzer IN Cardio ER; Base Excess (BEa) -0.4 mEq/L (-2.0 to +3.0); CO2 Tension 35.1 mmHg (35.0-45.0); Calcium, Ionized 1.08 mmol/L (1.12-1.30); Carboxyhemoglobin (COHb) 2.1 gm% (0.0-3.0); Hemoglobin (Hb) 14.4 g/dL (12.0-16.0); O2 Tension (PaO2) 62.9 mmHg (80.0-100.0); Potassium - ABG Lab 3.71 mmol/L (3.70-5.30); pH, Arterial 7.44 (7.35-7.45)
[2018-10-22 16:13] LABS: ALV-art Gradient 42.955 (0-20); Puncture Site RRA
[2018-10-22] MEDS ORDERED: Lorazepam 2 MG/ML VIAL ONE (16:43)
[2018-10-22] MEDS ORDERED: Ondansetron PF 4 MG/2 ML Vial IVP PRN (19:38)
[2018-10-22] MEDS ORDERED: Acetaminophen 650 MG Suppository PR PRN (19:38)
[2018-10-22] MEDS ORDERED: Acetaminophen 325 MG TAB PO PRN (19:38)
[2018-10-22 19:42] VITALS: BMI 27.6
[2018-10-22] MEDS ORDERED: Nicotine 21 MG PATCH TD SCH (20:00)
[2018-10-22] MEDS ORDERED: ALPRAZolam 0.25 MG TAB PO PRN (20:44)
[2018-10-22] MEDS ORDERED: Pramipexole Di-HCl 1 MG TAB PO SCH (21:00)
[2018-10-22] MEDS ORDERED: Melatonin 3 MG TAB PO SCH (21:00)
[2018-10-22] MEDS: Acetaminophen/Codeine 30-300mg Tablet PO PRN (21:44)
--- NOTE | 2018-10-22 22:39 | HP ---
HISTORY OF PRESENT ILLNESS: I have discussed the case with Dr. Sanya Gr and agreed with his assessment and plan. Ms. Rodriguez is a 48-year-old white female with a history of COPD and at least 55-usep-unad history of smoking, who is followed by Dr. Grey. She presents with a 1 to 2-day history of increased shortness of breath, cough, and chest rib discomfort secondary to cough and deep breathing for the last several days. We evaluated Ms. Rodriguez in the ER and ascertained she likely needs to be in the MICU. PHYSICAL EXAMINATION: GENERAL: She is awake and alert, but appears tired. She is breathing rapidly and deeply. She is oriented x3. EAR, NOSE, AND THROAT: No signs of erythema of the throat. NECK: Supple. LUNGS: Moist rales, some diffuse wheezes, rhonchi, and use of accessory muscles. She is tachypneic at the rate of 24 to 30 times per minute. CARDIAC: Heart rhythm is regular without gallop or murmur noted. ABDOMEN: Flat and soft without guarding, rebound, or rigidity. EXTREMITIES: Trace edema. LABORATORY DATA: Her CBC; white count is 11,900, hemoglobin 13.9, hematocrit 42.4 with an MCV of 87.8. Chemistries; her sodium is 139, potassium is 4, chloride is 108, bicarbonate 24, BUN is 10, and creatinine is 0.75. Her liver enzymes are normal. Chest x-ray, no evidence of acute cardiopulmonary disease. ASSESSMENT: Exacerbation of chronic obstructive pulmonary disease. PLAN: The patient has already received intravenous steroids and multiple DuoNeb treatments. These will be continued. She will likely need to be placed on BiPAP as she uses this at night anyway. We will also check an ABG as she seems to be tiring. We will consult with Dr. Grey or the cane weigher on-call while admitting the patient to the MICU. Job ID: [id number]
[2018-10-23 05:01] VITALS: TEMP 98.5
[2018-10-23 05:42] LABS: #Lymphocytes 1.3 thou/uL (1.20-3.40); #Monocytes 0.9 thou/uL (0.11-0.59); %Basophils 0.1 % (0.0-1.0); %Eosinophils 0.1 % (0.0-10.0); %Lymphocytes 8.3 % (21.0-51.0); %Monocytes 6.2 % (0.0-10.0); %Neutrophils 85.4 % (42.0-75.0); Hemoglobin 13.6 g/dL (12.0-16.0); Mean Corpuscular HGB CONC 32.2 g/dL (32.0-36.0); Mean Corpuscular Hemoglobin 28.4 pg (27.0-31.0); Mean Corpuscular Volume 88.3 fL (78.0-98.0); Mean Platelet Volume 8.3 fL (7.4-10.4); Platelet Count 234 thou/uL (130-400); RBC Distribution Width 14.7 % (11.5-14.5); Red Blood Cell (RBC) Count 4.77 mill/uL (4.20-5.40); White Blood Cell (WBC) Count 15.2 thou/uL (4.8-10.8)
[2018-10-23 06:05] LABS: Anion Gap 12 mmol/L (10-20); BUN (Urea Nitrogen) 11 mg/dL (7.0-18.7); Calc. Creatinine Clearance 124 mL/min (70-130); Calcium 9.2 mg/dL (7.8-10.44); Carbon Dioxide 21 mmol/L (22-29); Chloride 110 mmol/L (98-107); Estimated GFR-MDRD 90; Glucose 121 mg/dL (70-105); Sodium 139 mmol/L (136-145)
[2018-10-23] MEDS ORDERED: Lorazepam 2 MG/ML VIAL SLOW IVP PRN (06:45)
--- NOTE | 2018-10-23 06:47 | HP ---
CHIEF COMPLAINT: Shortness of breath. HISTORY OF PRESENT ILLNESS: This is a 48-year-old female well known to the hospital from multiple admissions for her COPD exacerbation and vocal cord dysfunction requiring intubation. The patient has been noticing some shortness of breath, coughing, and pain with deep inspiration for the last 3 days. She is normally a patient of the linen room houseperson, Dr. Per Grey. She has been using her Trelegy as prescribed and taking DuoNeb every 3 to 4 hours with no relief of symptoms. The patient is not hypoxic in the examination room. She is maintaining oxygen saturations in the 90s on room air. However due to her inspiratory stridor, she has been given 3 DuoNeb and placed on continuous DuoNeb face mask. She has been given 125 mg of Solu-Medrol, 2 g of magnesium sulfate, 1 g of Ativan, 1 L of normal saline, and 500 mg of azithromycin in the ED. The patient endorses fatigue and some nasal congestion to go along with her respiratory symptoms. She denies any sick contacts at home and feels that she does not have the flu. The patient is very emotional during the course of her interview and asked if anything can be done for her. She is tired of being admitted to the hospital for the same complaints. She is also asking for IV benzodiazepines as p.o. version is "not strong enough." The patient has a very very long history of 2-pack per day smoking history, has cut down to half a pack per day over the last several months. PAST MEDICAL HISTORY: 1. COPD. 2. Obstructive sleep apnea, on home BiPAP. 3. Restless legs syndrome. 4. Vocal cord dysfunction with multiple intubations. 5. Left upper lobe nodule. 6. Anxiety. 7. Tobacco abuse. PAST SURGICAL HISTORY: 1. Multiple fiberoptic laryngoscopy to document that she has vocal cord dysfunction. 2. Appendectomy. 3. Hysterectomy. 4. Tonsillectomy. 5. Ulnar nerve transposition. 6. Bladder suspension. 7. Cervical spine surgery. ALLERGIES: 1. DOXYCYCLINE. 2. LEVOFLOXACIN. 3. PENICILLIN. 4. GEODON. 5. HALDOL. MEDICATIONS: Prior to this admission: 1. DuoNeb every 4 hours p.r.n. 2. Trelegy. 3. Cymbalta. 4. Zyprexa 2.5 mg daily. 5. Pramipexole at bedtime. 6. Xanax. REVIEW OF SYSTEMS: GENERAL: Endorses fatigue. Denies loss of weight. ENT: Denies earache. Endorses nasal congestion. CV: Denies chest pain. Denies cyanosis. RESPIRATORY: Endorses cough. Endorses shortness of breath. ABDOMEN: Denies abdominal pain. Denies nausea. : Denies dysuria. Denies hematuria. SKIN: Denies lesions. Denies rashes. PSYCH: Endorses anxiety. Denies depression. MUSCULOSKELETAL: Denies joint pain. Denies joint swelling. NEURO: Denies tremors. Denies seizures. PHYSICAL EXAMINATION: VITAL SIGNS: Blood pressure 132/77, pulse of 84, respiration 23, O2 was 95% on room air and is now 93% on face mask. GENERAL: She appears in some distress, but is alert and oriented x3. HEENT: Mucous membranes moist and pink. Pupils equal and reactive to light and accommodation. Extraocular movements are intact. NECK: Supple without any adenopathy. LUNGS: Diffuse bilateral expiratory wheezing with coarse rhonchi. CARDIOVASCULAR: Regular rate and rhythm. No murmurs. ABDOMEN: Soft, nontender to palpation. EXTREMITIES: Show no edema. NEUROLOGIC: Cranial nerves II through XII are intact. SKIN: No rashes or bruises. PSYCHIATRIC: Histrionic affect. LABORATORY DATA: White blood cell count 11.9, hemoglobin 13.9, hematocrit 42.4 , MCV 87.8, platelet count 207. Sodium 139, potassium 4.0, chloride 108, carbon dioxide 24, BUN is 10, creatinine is 0.75, glucose is 102. Total bilirubin is 0.5. ALT is 20, ALT is 15, alkaline phosphatase is 61, total protein is 7.2, albumin 3.9. ABG is pending. IMAGING: Chest x-ray shows no evidence of active or acute cardiopulmonary disease. EKG is unremarkable. ASSESSMENT AND PLAN: 1. Chronic obstructive pulmonary disease exacerbation. We will continue the steroids, nebulizers, and empiric antibiotics as above. Dr. Grey has been notified and Pulmonology will be consulted for further management. We will gauge need for intubation based on ABG results. The patient appears tired in the room. We will admit her to [facility] for further monitoring. She is currently hemodynamically stable. 2. Obstructive sleep apnea. We will place her on BiPAP home settings likely 12 and 5 at night. 3. Restless legs syndrome. We will continue home medications. 4. Anxiety. We will provide IV benzodiazapine p.r.n. medications. I advised this would be used sparingly to not lower her respiratory drive. DISPOSITION AND LENGTH OF HOSPITAL STAY: Two plus days. Symptomatic management will be provided. History and physical exam as well as management discussed with Dr. Jonathan Rabago. Job ID: [id number] [facility]
[2018-10-23 07:00] LABS: Actual Bicarbonate (HCO3a) 19.6 mEq/L (22-28); Base Excess (BEa) -5.3 mEq/L (-2.0 to +3.0); CO2 Tension 36.2 mmHg (35.0-45.0); Calcium, Ionized 1.19 mmol/L (1.12-1.30); Carboxyhemoglobin (COHb) 1.4 gm% (0.0-3.0); Hemoglobin (Hb) 14.6 g/dL (12.0-16.0); O2 Tension (PaO2) 95.2 mmHg (80.0-100.0); Potassium - ABG Lab 3.99 mmol/L (3.70-5.30); Puncture Site RRA; pH, Arterial 7.35 (7.35-7.45)
--- NOTE | 2018-10-23 08:45 | PDOC.FM ---
- Subjective Subjective: Pt did not respond to questions or commands this morning. at bedside reports that she gets that way sometimes. He states that she was reporting a swelling in her throat earlier. He states that he has not seen her like this before. - Objective MAR Reviewed: Yes Vital Signs & Weight: Vital Signs (12 hours) Temp Pulse Resp BP Pulse Ox 10/23/18 08:10 98.5 F 96 24 H 145/89 H 94 L 10/23/18 05:00 98.5 F 91 21 H 110/62 98 Weight Weight 79.83 kg Result Diagrams: 10/23/18 05:24 10/23/18 05:24 <Ilya Larsen - Last Filed: 10/23/18 08:48> - Objective Vital Signs & Weight: Vital Signs (12 hours) Temp Pulse Resp BP Pulse Ox 10/23/18 08:10 98.5 F 96 24 H 145/89 H 94 L 10/23/18 05:00 98.5 F 91 21 H 110/62 98 Weight Weight 79.83 kg Result Diagrams: 10/23/18 05:24 10/23/18 05:24 <Tien Duenas - Last Filed: 10/23/18 10:10> Phys Exam - Physical Examination Pt appears to have labored breathing on CPAP HEENT: moist MMs Neck: no JVD Lung sounds appear to be radiating from upper airway Cardiovascular: RRR, no significant murmur Gastrointestinal: soft, no distention Musculoskeletal: no edema, pulses present <Ilya Larsen - Last Filed: 10/23/18 08:48> Dx/Plan (1) LUISA (obstructive sleep apnea) Code(s): G47.33 - OBSTRUCTIVE SLEEP APNEA (ADULT) (PEDIATRIC) Status: Acute (2) Anxiety disorder Code(s): F41.9 - ANXIETY DISORDER, UNSPECIFIED Status: Acute Qualifiers: Anxiety disorder type: unspecified anxiety disorder Qualified Code(s): F41.9 - Anxiety disorder, unspecified (3) COPD exacerbation Code(s): J44.1 - CHRONIC OBSTRUCTIVE PULMONARY DISEASE W (ACUTE) EXACERBATION Status: Acute (4) Restless leg syndrome Status: Chronic - Plan Plan: This is a 48 yo female with a PMH of COPD, LUISA, restless leg syndrome, and anxiety COPD exacerbation -Pt. is currently receiving duonebs, steroids, and antibiotics (10/22) -Pt is on her BiPAP currently to aid in her respirations -Pulmonology has been consulted and we will appreciate their recommendations -Latest ABG shows stable blood gas LUISA -Continue home BiPap at night Restless leg syndrome -Continue home meds Anxiety -Continue her home medication -I added IV ativan as she appears to be unable to take PO medication appropriately. <Ilya Larsen - Last Filed: 10/23/18 08:48> Attending Addendum - Attending Addendum Date/Time: 10/23/18 [id number] I personally evaluated the patient and discussed the management with Dr. Larsen. I agree with the History, Examination, Assessment and Plan documented above with any addition or exceptions noted below. c/o's worsened dyspnea and throat ache. No apparent resp distress. Lungs CTA when distracted. Pulm consulted for chronic difficult to manage vocal dysphonia and COPD, LUISA. Will try to make inroads in Psych effects of chronic illness. Reinforced importance of tobacco cessation. <Tien Duenas - Last Filed: 10/23/18 10:10>
[2018-10-23] MEDS: Acetaminophen/Codeine 30-300mg Tablet PO PRN (08:58)
[2018-10-23] MEDS ORDERED: OLANZapine 2.5 MG TAB PO SCH (09:00)
[2018-10-23] MEDS ORDERED: DULoxetine 30 MG CAP PO SCH (09:00)
[2018-10-23] MEDS ORDERED: Estradiol 1 MG TAB PO SCH (09:00)
[2018-10-23] MEDS ORDERED: predniSONE 20 MG TAB PO SCH (09:00)
[2018-10-23 12:40] VITALS: BP 123/75
--- NOTE | 2018-10-23 13:49 | CON ---
DATE OF CONSULTATION: 10/23/2018 CONSULT PHYSICIAN: Residency Service. REASON FOR CONSULTATION: COPD exacerbation. HISTORY OF THE PRESENT ILLNESS: Ms. Rodriguez is a 48-year-old female, who has extensive psychiatric issues. Most of this is manifested by vocal cord dysfunction and recurrent hospitalizations, some of which have led to intubation when the providers did not know her medical history. She came in last night with acute onset of vocal cord symptoms. The patient now feels better and wants to go home. PAST MEDICAL HISTORY: 1. COPD. 2. LUISA. 3. Restless leg syndrome. 4. Vocal cord dysfunction with multiple intubations. 5. Left upper lobe pulmonary nodule. 6. Anxiety. PAST SURGICAL HISTORY: Laryngoscopy, appendectomy, hysterectomy, tonsillectomy, ulnar nerve transposition, bladder suspension, and cervical spine surgery. ALLERGIES: DOXYCYCLINE, LEVAQUIN, PENICILLIN, GEODON, AND HALDOL. MEDICATIONS: Prior to admission; 1. DuoNeb. 2. Trelegy. 3. Cymbalta. 4. Xanax. 5. Zyprexa. 6. Pramipexole. She is also on a BiPAP machine at night. REVIEW OF SYSTEMS: Otherwise negative. PHYSICAL EXAMINATION: VITAL SIGNS: Temperature 98.5, pulse 96, respirations 24, O2 sat 94%, and blood pressure 145/89. HEENT: Unremarkable. NECK: No JVD. LUNGS: She has soft expiratory wheezing. CARDIAC: S1 and S2, regular without murmur. ABDOMEN: Soft, nontender. EXTREMITIES: No edema. IMAGING STUDIES: Chest x-ray shows no acute findings. ASSESSMENT: 1. Vocal cord dysfunction. 2. Obstructive sleep apnea. 3. Deep-seated psychiatric issues, probably a personality disorder. PLAN: She is cleared to go home. I would taper steroids over about a week. I have increased her BiPAP pressure to 18/10 at the patient's request. She is to see me in the office in December for a followup CT scan of pulmonary nodule. Job ID: [id number]
--- NOTE | 2018-10-24 15:44 | DIS ---
DATE OF ADMISSION: 10/22/2018 DATE OF DISCHARGE: 10/23/2018 RESIDENT: Ilya Larsen DO. ADMITTING ATTENDING: Jonathan Rabago MD DISCHARGE ATTENDING: Tien Duenas MD CONSULTATION: Pulmonology, Per Grey MD PROCEDURES PERFORMED: Chest x-ray with no evidence of acute cardiopulmonary disease. PRIMARY DIAGNOSIS: Chronic obstructive pulmonary disease exacerbation. SECONDARY DIAGNOSES: Obstructive sleep apnea, restless legs syndrome, vocal cord dysfunction with multiple intubations, left upper lobe pulmonary nodule, anxiety, and tobacco abuse. DISCHARGE MEDICATIONS: 1. Tylenol No. 3 one tablet p.o. every 4 hours. 2. Xanax 0.125 mg p.o. t.i.d. 3. Cymbalta 30 mg one tablet p.o. daily. 4. Estrace 2 mg p.o. q.a.m. 5. DuoNeb 3 mL nebulizer every 6 hours. 6. Melatonin 5 mg. 7. Medrol Dosepak as directed. 8. Nicotine patches one box, 25 mg every 24 hours. 9. Olanzapine 2.5 mg p.o. daily. 10. Mirapex 2 mg p.o. at bedtime. 11. Chantix one tablet p.o. daily, starter pack. DISCONTINUED MEDICATIONS: Prednisone 40 mg p.o. daily. HISTORY OF PRESENT ILLNESS/HOSPITAL COURSE: This is a 48-year-old female, well known to the hospital with multiple admissions for COPD exacerbation and vocal cord dysfunction, requiring intubation. The patient reports having shortness of breath earlier today while helping the neighbor to move some furniture. Upon admission, the patient was placed on the IMCU on BiPAP, transitioned to the floor after improving. The patient's 02 sats improved throughout hospital stay. In addition, the patient had an episode of vocal cord dysfunction, requiring PERTINENT LABORATORY DATA: WBC 11.9. Two ABGs, which showed initially normal with exception of pO2 at 63.9. Second ABG shows improvement of pO2 at 95, pCO2 at 36.2, and pH at 7.35. DISPOSITION: Stable. DISCHARGE INSTRUCTIONS: 1. Location: Home. 2. Activity: As tolerated. 3. Diet: As tolerated. 4. Followup: With her primary care physician and plate cutter in 1 to 2 weeks and as directed respectively. Job ID: [id number]
--- NOTE | 2018-10-25 13:48 | EKG ---
Test Reason : Blood Pressure : / mmHG Vent. Rate : 085 BPM Atrial Rate : 085 BPM P-R Int : 176 ms QRS Dur : 078 ms QT Int : 392 ms P-R-T Axes : 065 042 047 degrees QTc Int : 466 ms Normal sinus rhythm Normal ECG Confirmed by MARLIN WILBURN DO ([id number]), food expeditor ARABELLA VALENTIN ([id number]) on 10/25/2018 1:47:48 PM Referred By: Confirmed By:MARLIN WILBURN DO
== END 2018-10-23 13:15 | disposition home or self-care (01) | DRG 192 ==
LOC: ERS 11:13 → T4-B 17:46
PROVIDERS: ADMIT Family Medicine; ATTEND Family Medicine
DX: J44.1 Chronic obstructive pulmonary disease with (acute) exacerbation (principal); G47.33 Obstructive sleep apnea (adult) (pediatric); G25.81 Restless legs syndrome; F41.9 Anxiety disorder, unspecified; J38.3 Other diseases of vocal cords
CPT/HCPCS: 36415; 71045; 80048; 80053; 82805; 85025; 93005; 94640; 94644; J2060; J2405; J2930; J7506; J7611; J7620

== ENCOUNTER 2018-10-30 14:10 | Emergency (ER) | payer BC ==
[2018-10-30 14:41] LABS: #Basophils 0.1 thou/uL (0.0-0.2); #Eosinphils 0.5 thou/uL (0.0-0.7); #Monocytes 1.3 thou/uL (0.11-0.59); #Neutrophils 7.7 thou/uL (1.40-6.50); %Basophils 1.2 % (0.0-1.0); %Eosinophils 4.3 % (0.0-10.0); %Lymphocytes 23.6 % (21.0-51.0); Mean Corpuscular HGB CONC 33.1 g/dL (32.0-36.0); Mean Corpuscular Hemoglobin 29.1 pg (27.0-31.0); Mean Corpuscular Volume 87.8 fL (78.0-98.0); Mean Platelet Volume 7.8 fL (7.4-10.4); Platelet Count 264 thou/uL (130-400); RBC Distribution Width 14.1 % (11.5-14.5); Red Blood Cell (RBC) Count 4.81 mill/uL (4.20-5.40); White Blood Cell (WBC) Count 12.7 thou/uL (4.8-10.8)
--- NOTE | 2018-10-30 14:45 | RAD ---
SINGLE VIEW OF THE CHEST: 10/30/18 COMPARISON: 10/22/18 HISTORY: Difficulty breathing. Audible wheezing. FINDINGS: Single view of the chest shows a normal sized cardiomediastinal silhouette. There is no evidence of c onsolidation, mass, or pleural effusion. Postsurgical changes are seen in the cervical spine. IMPRESSION: No evidence of acute cardiopulmonary disease. POS: [facility]
[2018-10-30] MEDS ORDERED: methylPREDNISolone Sod Succ/PF 125 MG/2 ML VIAL ONE (14:46)
[2018-10-30 15:11] LABS: ALT (SGPT) 14 U/L (8-55); AST (SGOT) 15 U/L (5-34); Alkaline Phosphatase 62 U/L (40-150); Anion Gap 14 mmol/L (10-20); BUN (Urea Nitrogen) 12 mg/dL (7.0-18.7); Bilirubin, Total 0.5 mg/dL (0.2-1.2); Calc. Creatinine Clearance 0 mL/min (70-130); Calcium 9.5 mg/dL (7.8-10.44); Carbon Dioxide 22 mmol/L (22-29); Chloride 105 mmol/L (98-107); Estimated GFR-MDRD 77; Globulin 3.4 g/dL (2.4-3.5); Glucose 118 mg/dL (70-105); Potassium 3.7 mmol/L (3.5-5.1); Protein, Total 7.4 g/dL (6.0-8.3); Sodium 137 mmol/L (136-145)
--- NOTE | 2018-11-01 13:50 | EKG ---
Test Reason : Blood Pressure : / mmHG Vent. Rate : 086 BPM Atrial Rate : 086 BPM P-R Int : 166 ms QRS Dur : 076 ms QT Int : 362 ms P-R-T Axes : 070 041 048 degrees QTc Int : 433 ms Normal sinus rhythm Possible Left atrial enlargement Borderline ECG Confirmed by NEAL PRINCE ([id number]), department editor ARABELLA VALENTIN ([id number]) on 11/01/2018 1:49:32 PM Referred By: Confirmed By:NEAL PRINCE
== END 2018-10-30 17:28 | disposition home or self-care (01) ==
LOC: ERS 14:10
DX: J44.1 Chronic obstructive pulmonary disease with (acute) exacerbation (principal); F41.9 Anxiety disorder, unspecified; F17.210 Nicotine dependence, cigarettes, uncomplicated
CPT/HCPCS: 71045; 80053; 83880; 84484; 85025; 85379; 93005; 94640; 96374; J2930; J7620

== ENCOUNTER 2018-11-11 13:09 | Observation (INO) | payer BC ==
[2018-11-11] MEDS ORDERED: methylPREDNISolone Sod Succ/PF 125 MG/2 ML VIAL ONE (13:44)
[2018-11-11 13:51] LABS: Hemoglobin 13.6 g/dL (12.0-16.0); Mean Corpuscular HGB CONC 32.3 g/dL (32.0-36.0); Mean Corpuscular Volume 86.8 fL (78.0-98.0); Mean Platelet Volume 7.5 fL (7.4-10.4); Platelet Count 286 thou/uL (130-400); RBC Distribution Width 13.6 % (11.5-14.5); Red Blood Cell (RBC) Count 4.85 mill/uL (4.20-5.40); White Blood Cell (WBC) Count 22.9 thou/uL (4.8-10.8)
[2018-11-11 14:09] LABS: ALT (SGPT) 14 U/L (8-55); AST (SGOT) 13 U/L (5-34); Albumin 4.1 g/dL (3.5-5.0); Alkaline Phosphatase 58 U/L (40-150); Anion Gap 15 mmol/L (10-20); BUN (Urea Nitrogen) 16 mg/dL (7.0-18.7); Bilirubin, Total 0.4 mg/dL (0.2-1.2); CK (CPK) 151 U/L (29-168); Calc. Creatinine Clearance 0 mL/min (70-130); Calcium 9.4 mg/dL (7.8-10.44); Carbon Dioxide 21 mmol/L (22-29); Chloride 105 mmol/L (98-107); Estimated GFR-MDRD 82; Globulin 3.3 g/dL (2.4-3.5); Glucose 139 mg/dL (70-105); Potassium 4.2 mmol/L (3.5-5.1); Protein, Total 7.4 g/dL (6.0-8.3); Sodium 137 mmol/L (136-145)
[2018-11-11 14:16] LABS: Band 2 % (5-11); Lymphocytes 18 % (21-51); MDiff Complete? YES; Monocytes 4 % (0-10); Neutrophil 76 % (42-75); PLT Morphology Comment Appears Adequate
--- NOTE | 2018-11-11 14:19 | RAD ---
PORTABLE CHEST 1 VIEW: Date: 11/11/18 Time: 1331 hours HISTORY: Dyspnea. FINDINGS: Comparison made with exam of 10/30/18. The heart size is normal. The lungs are expanded without focal areas of consolidation, pneumothoraces , or pleural effusions. There are postop changes in the spine. IMPRESSION: No radiographic evidence of acute cardiopulmonary process. POS: [facility]
[2018-11-11] MEDS ORDERED: Lorazepam 2 MG/ML VIAL ONE (15:15)
[2018-11-11] MEDS ORDERED: Magnesium 2 GM/50 ML 2 GM in Premix Bag 1 BAG IVPB SCH (15:45)
--- NOTE | 2018-11-11 16:00 | PDOC.FPRHP ---
- History of Present Illness Chief Complaint: SOB History of Present Illness: 48yo female with pmh COPD and anxiety presents with shortness of breath and chest tightness. Last week presented to [facility] and was given ceftidir 5 days of prednisone with no improvement. 2 days ago had I&D, was placed on antibiotics. Smoking 4 cigarettes per day. No sick contacts. Denies fever, chest pain. Has been given ativan, multiple duonebs and steroids in the ED with no improvement in air hunger. Currently satting 97% on RA. - Allergies/Adverse Reactions Allergies Allergy/AdvReac Type Severity Reaction Status Date / Time ziprasidone [From Geodon] Allergy Severe Verified 05/01/18 21:49 Penicillins Allergy Intermediate Hives Verified 05/31/17 17:24 doxycycline Allergy Hives Verified 05/31/17 17:24 haloperidol [From Haldol] Allergy Verified 05/31/17 17:24 levofloxacin [From Levaquin] Allergy Hives Verified 05/31/17 17:24 loratadine [From Claritin] Allergy Rash Verified 05/31/17 17:24 morphine Allergy Verified 11/09/17 03:09 penicillin G Allergy Verified 05/31/17 17:24 - Home Medications Medication Instructions Recorded Confirmed Type Estradiol [Estrace] 2 mg PO QAM 04/02/15 10/22/18 History Pramipexole Di-HCl [Mirapex] 4 tab PO HS 08/02/15 10/22/18 History Melatonin/Pyridoxine [Melatonin 5 3 mg PO HS 02/06/16 10/22/18 History mg Tablet] OLANZapine [ZyPREXA] 2.5 mg PO DAILY 09/07/17 10/22/18 History Ipratropium/Albuterol Sulfate 3 ml NEB [id number] #120 neb 04/23/18 10/22/18 Rx [DuoNeb] ALPRAZolam [Xanax] 0.125 mg PO TID PRN 05/23/18 10/22/18 History Acetaminophen With Codeine 1 tablet PO Q4HR PRN 05/23/18 10/22/18 History [Tylenol with Codeine #3] DULoxetine HCl [Cymbalta] 1 tab PO DAILY 09/08/18 10/22/18 History methylPREDNISolone [Medrol Dosepak] 4 mg PO ASDIR #1 pk 09/11/18 10/22/18 Rx Nicotine [Nicoderm CQ] 21 mg TD Q24HR #1 box 10/23/18 Rx Varenicline Tartrate [Chantix] 1 each PO DAILY #1 tab.ds.pk 10/23/18 Rx - History PMHx: COPD, anxiety PSHx: Appendectomy, hysterectomy, C5-C7 kyphoplasty, bladder sling FHx: Father- Cardiomyopathy Social: Smoking 4 cigarettes per day, denies alcohol or drug use - Review of Systems General: denies: fever/chills Eyes: denies: eye pain, vision changes ENT: denies: nasal congestion, rhinorrhea Respiratory: reports: cough, shortness of breath. denies: congestion Cardiovascular: reports: edema. denies: chest pain Gastrointestinal: denies: nausea, vomiting, diarrhea, constipation Genitourinary: denies: incontinence, dysuria, polyuria, discharge Skin: reports: other (left labial abcess, s/p I&D). denies: rashes, lesions Musculoskeletal: denies: pain, tenderness, arthritis/arthralgias Neurological: reports: weakness (new right arm weakness over last few weeks) Psychological: reports: anxiety. denies: depression - Vital signs BP: 127/76 HR: 98 RR: 21 Tmax: 98.7 Pox: 97% on RA Wt: 77 kg - Physical Exam Constitutional: NAD, awake, alert and oriented, well developed -Constitutional: Vocal cord dysfunction HEENT: normocephalic and atraumatic, MMM Neck: supple, trachea midline Heart: pulses present, no edema Lungs: other -Lungs: Expiratory Wheezing bilaterally. No retractions Abdomen: soft, non-tender, bowel sounds present Neurological: no focal deficit, CN II-XII intact Skin: capillary refill <2 seconds Psychiatric: normal mood and affect, good judgment and insight, intact recent and remote memory FMR H&P: Results - Labs Result Diagrams: 11/11/18 13:38 11/11/18 13:38 Lab results: WBC 22.9 thou/uL (4.8-10.8) H 11/11/18 13:38 Hgb 13.6 g/dL (12.0-16.0) 11/11/18 13:38 Hct 42.1 % (36.0-47.0) 11/11/18 13:38 MCV 86.8 fL (78.0-98.0) 11/11/18 13:38 Plt Count 286 thou/uL (130-400) 11/11/18 13:38 Band Neuts % (Manual) 2 % (5-11) L 11/11/18 13:38 Sodium 137 mmol/L (136-145) 11/11/18 13:38 Potassium 4.2 mmol/L (3.5-5.1) 11/11/18 13:38 Chloride 105 mmol/L (98-107) 11/11/18 13:38 Carbon Dioxide 21 mmol/L (22-29) L 11/11/18 13:38 BUN 16 mg/dL (7.0-18.7) 11/11/18 13:38 Creatinine 0.75 mg/dL (0.6-1.1) 11/11/18 13:38 Glucose 139 mg/dL (70-105) H 11/11/18 13:38 Calcium 9.4 mg/dL (7.8-10.44) 11/11/18 13:38 Total Bilirubin 0.4 mg/dL (0.2-1.2) 11/11/18 13:38 AST 13 U/L (5-34) 11/11/18 13:38 ALT 14 U/L (8-55) 11/11/18 13:38 Alkaline Phosphatase 58 U/L (40-150) 11/11/18 13:38 Creatine Kinase 151 U/L (29-168) 11/11/18 13:38 B-Natriuretic Peptide 19.0 pg/mL (0-100) 11/11/18 13:38 Serum Total Protein 7.4 g/dL (6.0-8.3) 11/11/18 13:38 Albumin 4.1 g/dL (3.5-5.0) 11/11/18 13:38 - EKG Interpretation EK lead EKG shows normal sinus rhythm, Rate (beats per minute): 87, with no ectopics, Conduction normal, ST segments normal, T waves normal, [place] normal, Other findings include:, LAE, Clinical impression:, non-specific EKG, PA interval 152 ms, QRS duration 78 ms, QT/QTc 354/425 ms. - Radiology Interpretation Chest x-ray Status: report reviewed by me (No acute cardiopulmonary process) FMR H&P: A/P - Problem List (1) Anxiety disorder Current Visit: No Status: Acute Code(s): F41.9 - ANXIETY DISORDER, UNSPECIFIED Qualifiers: Anxiety disorder type: unspecified anxiety disorder Qualified Code(s): F41.9 - Anxiety disorder, unspecified (2) COPD exacerbation Current Visit: No Status: Acute Code(s): J44.1 - CHRONIC OBSTRUCTIVE PULMONARY DISEASE W (ACUTE) EXACERBATION (3) LUISA (obstructive sleep apnea) Current Visit: No Status: Acute Code(s): G47.33 - OBSTRUCTIVE SLEEP APNEA ( ADULT) (PEDIATRIC) (4) Fibromyalgia Current Visit: No Status: Chronic (5) Tobacco dependence Current Visit: No Status: Chronic Code(s): F17.200 - NICOTINE DEPENDENCE, UNSPECIFIED, UNCOMPLICATED (6) Vocal cord dysfunction Current Visit: No Status: Chronic Code(s): J38.3 - OTHER DISEASES OF VOCAL CORDS Comment: as above - Plan 48yo female with pmh COPD Acute COPD exacerbation - Monitor SpO2, keep sats between 88-92% - Duonebs - Continue steroids, s/p 1x in ED - Leukocytosis likely 2/2 recent steroids, no antibiotics at this time - Ativan for air hunger/anxiety Leukocytosis - 2/2 to recent steroids Anxiety - Takes Xanax and clonazepam at home - Ativan PRN Tobacco Abuse - Encourage cessation Code Status: FULL DVT ppx: Lovenox Dispo: Likely tomorrow if improving FMR H&P: Upper Level - Pertinent history 48 yo female with PMH of COPD presents for SOB. Patient states she was seen in [place] [facility]. Patient was given 50 mg Prednisone for 5 days. Patient states that she has been trying multiple duonebs at home as well as anxiety medication without relief. She states that she has had some minor nasal congestion as well as overall body weakness. She states she has vomited once. She denies any other diarrhea, rash, fevers, or cough complaints. Please refer to test engineering intern note above for further documentation. Physical Exam: General: Female appears stated age, NAD Vitals: BP 112/82, Pulse 92, Resp 21, Temp 98.7, O2 Sat 95% Room Air HEENT: Atraumatic normocephalic CV: RRR, no murmurs Respiratory: No crackles, end expiratory wheezes present Abdomen: Soft, nontender, no masses Extremities: Pulses present, no edema Neuro: Alert and Oriented. No focal deficits - Plan Date/Time: 11/11/18 [id number] IJose MD, have evaluated this patient and agree with findings/ plan as outlined by test engineering intern resident. Pertinent changes/additions are listed here. 1. COPD exacerbation - Patient would be good candidate for short stay - Keep O2 saturation above 92% - Continue steroids, but no further doses for today - No antibiotics at this time due to no known source - Ativan for anxiety to decrease air hunger symptoms 2. Leukocytosis - Likely secondary to recent steroid use - Consider trending 3. Anxiety - Ativan PRN - Continue home meds 4. Tobacco abuse - Recommend complete cessation Disposition: Stable, will admit to Observation. Patient is likely candidate for discharge tomorrow morning.
[2018-11-11] MEDS ORDERED: Ondansetron ODT 4 MG TAB SL PRN (18:58)
[2018-11-11] MEDS ORDERED: Ondansetron PF 4 MG/2 ML Vial IVP PRN (18:58)
[2018-11-11] MEDS ORDERED: Ondansetron ODT 4 MG TAB PO PRN (18:59)
[2018-11-11] MEDS ORDERED: Acetaminophen 325 MG TAB PO PRN (19:19)
[2018-11-11 19:20] VITALS: BMI 27.8
[2018-11-11] MEDS ORDERED: Ketorolac Tromethamine 30 MG/ML VIAL IVP SCH (19:30)
[2018-11-11] MEDS ORDERED: ALPRAZolam 0.25 MG TAB PO PRN (21:00)
[2018-11-11] MEDS ORDERED: Nicotine 21 MG PATCH TD SCH (21:15)
[2018-11-11] MEDS: Lorazepam 2 MG/ML VIAL SLOW IVP PRN (21:43)
[2018-11-11] MEDS ORDERED: Pramipexole Di-HCl 1 MG TAB PO SCH (21:45)
[2018-11-11] MEDS ORDERED: Melatonin 3 MG TAB PO SCH (21:45)
[2018-11-12] MEDS: Lorazepam 2 MG/ML VIAL SLOW IVP PRN ×2 (04:50→10:24)
[2018-11-12 07:55] VITALS: BP 133/66; TEMP 98.4
[2018-11-12] MEDS ORDERED: predniSONE 50 MG TAB PO SCH (08:00)
--- NOTE | 2018-11-12 08:42 | PDOC.FM ---
- Subjective Subjective: 48 yo female seen at bedside this AM. Patient states she still feels very short of breath. Her O2 has maintained greater than 95% on Room air all night without supplementation. She is able to converse in full sentences. She states that she is very anxious about her respiratory condition. Patient is counseled that causes of SOB that necessitate hospitalization have been ruled out. Patient will be discharged today. She then began to ask several questions regarding her vocal cord dysfunction. She was told several times that I have keno clerk in that field and have no recommendations. She is counseled to follow up with her PCP in the next 1-2 days. She denies chest pain, fevers, chills, or cough. No other complaints. - Objective MAR Reviewed: Yes Vital Signs & Weight: Vital Signs (12 hours) Temp Pulse Resp BP BP Pulse Ox 11/12/18 07:32 98.4 F 73 16 133/66 95 11/12/18 03:48 98.2 F 83 14 123/66 97 11/12/18 02:41 93 18 100 11/11/18 23:35 98.4 F 84 21 H 114/71 97 11/11/18 22:05 96 18 98 Weight Weight 80.8 kg I&O: 11/11/18 11/12/18 11/13/18 06:59 06:59 06:59 Intake Total 500 Balance 500 Result Diagrams: 11/11/18 13:38 11/11/18 13:38 Phys Exam - Physical Examination Constitutional: NAD HEENT: moist MMs Neck: no nodes, supple Respiratory: wheezing present, clear to auscultation bilateral Wheezing present is likely upper respiratory sounds. Cardiovascular: RRR, no significant murmur Gastrointestinal: soft, non-tender, no distention, positive bowel sounds Musculoskeletal: no edema, pulses present Neurological: non-focal, normal sensation, moves all 4 limbs Lymphatic: no nodes Psychiatric: A&O x 3 Skin: no rash, cap refill <2 seconds Dx/Plan (1) COPD exacerbation Code(s): J44.1 - CHRONIC OBSTRUCTIVE PULMONARY DISEASE W (ACUTE) EXACERBATION Status: Acute (2) Leukocytosis Code(s): D72.829 - ELEVATED WHITE BLOOD CELL COUNT, UNSPECIFIED Status: Acute (3) Anxiety disorder Code(s): F41.9 - ANXIETY DISORDER, UNSPECIFIED Status: Acute Qualifiers: Anxiety disorder type: unspecified anxiety disorder Qualified Code(s): F41.9 - Anxiety disorder, unspecified (4) Tobacco dependence Code(s): F17.200 - NICOTINE DEPENDENCE, UNSPECIFIED, UNCOMPLICATED Status: Chronic - Plan Plan: 1. COPD exacerbation - No acute changes - Keep O2 saturation above 92% - Maintained O2 without supplement all night long - Continue steroids, but no further doses for today - No antibiotics at this time due to no known source - Ativan for anxiety to decrease air hunger symptoms - Will discharge on steroids until patient is seen by PCP 2. Leukocytosis - Likely secondary to recent steroid use 3. Anxiety - Ativan PRN - Continue home meds 4. Tobacco abuse - Recommend complete cessation Disposition: Stable, will plan for discharge today.
[2018-11-12] MEDS ORDERED: Enoxaparin Sodium 40 MG/0.4 ML SYRINGE SC SCH (09:00)
[2018-11-12] MEDS ORDERED: DULoxetine 30 MG CAP PO SCH (09:00)
[2018-11-12] MEDS ORDERED: Estradiol 1 MG TAB PO SCH (09:00)
--- NOTE | 2018-11-12 12:00 | PRG ---
DATE OF SERVICE: 11/12/2018 Addendum to the note of Dr. Jose Pastrana. SUBJECTIVE: Ms. Rodriguez is a very unfortunate 48-year-old female, who has several problems. She has at least a 40 pack-year history of smoking causing COPD and also vocal cord dysfunction. Her current symptoms actually seem more related to her vocal cord dysfunction and that her O2 sats have been above 90 on room air and she has not responded symptomatically from ideal treatment for COPD. In the event, she is clinically stable, and will be discharged today. Job ID: [id number]
[2018-11-12] MEDS ORDERED: Pramipexole Di-HCl 1 MG TAB PO SCH (21:00)
[2018-11-12] MEDS ORDERED: Melatonin 3 MG TAB PO SCH (21:00)
--- NOTE | 2018-11-13 05:44 | DIS ---
DATE OF ADMISSION: 11/11/2018 DATE OF DISCHARGE: 11/12/2018 RESIDENT: Dr. Pastrana. ADMITTING ATTENDING: Dr. Duenas. DISCHARGE ATTENDING: Dr. Rabago. CONSULTATIONS: None. PROCEDURES: On 11/11/2018, the patient underwent a chest x-ray that showed no radiographic evidence of acute cardiopulmonary process. PRIMARY DIAGNOSES: 1. Vocal cord dysfunction. 2. Chronic obstructive pulmonary disease. 3. Leukocytosis. 4. Anxiety. 5. Tobacco dependance. DISCHARGE MEDICATIONS: 1. Estrace 2 mg p.o. q.a.m. 2. Mirapex p.o. at bedtime. 3. Melatonin 5 mg p.o. at bedtime. 4. Xanax 0.25 mg p.o. t.i.d. p.r.n. 5. Duloxetine 30 mg p.o. daily. 6. NicoDerm 21 mg transdermally . 7. Cefadroxil 500 mg p.o. daily. 8. DuoNebs 3 mL nebulized q.6 hours p.r.n. 9. Acetaminophen 650 mg p.o. q.6 hours. 10. Prednisone 40 mg p.o. as directed for 7 days. 11. ProAir HFA 2 puffs inhaled q.4 hours p.r.n. for wheezing. DISCONTINUED MEDICATIONS: None. HISTORY OF PRESENT ILLNESS AND HOSPITAL COURSE: This patient is a 48-year-old female with past medical history of COPD and anxiety, presents for shortness of breath and chest tightness. Last week, she presented to [facility] and was given cefdinir as well as 5 days of prednisone with no improvement. Two days ago, she had an I and D of left labial abscess and was placed on antibiotics with improvement of those symptoms. The patient does have a [id number] smoking history and has smoked at least 4 cigarettes per day over the recent months. She has had no sick contact. She denies any fevers or chest pain. She has been given Ativan, multiple DuoNebs, and steroids in the emergency department without improvement in air hunger. Currently, she is satting 97% on room air. During this hospitalization, the patient remained afebrile as well as having oxygen saturations in the high 90s percentage on room air. Her blood pressure was normotensive. She did have notable lab values of white blood cell of 22.9; however, we do deem that unremarkable due to her recent steroid use. All other labs and abnormalities were unremarkable. The patient was counseled extensively that her symptoms are likely due to vocal cord dysfunction and that she should opt to see a vocal cord specialist at a tertiary care center for further investigation of her disease. The patient has been agreeable to this plan; however, she does have lot of anxiety regarding her condition. The patient is instructed that she needs to have a close followup with her PCP and an [facility] with referral to a tertiary care center to hopefully alleviate some of her symptoms of her vocal cord dysfunction. Her vocal cord dysfunction has been followed through by multiple specialists including speech pathologist with multiple training tips as well as symptomatic treatment without improvement. Again, the patient has been fully counseled that this is not an infectious cause or a cause that requires hospitalization and that she needs to have outpatient followup with some specialist. Otherwise, the patient tolerated the hospitalization well and had no further complications and was discharged in appropriate condition. DISPOSITION: Stable. DISCHARGE INSTRUCTIONS: 1. Location: She will be discharged to home under the care of herself. 2. Diet: Will be as tolerated with no restrictions. 3. Activity: Will be as tolerated with no restrictions. 4. Followup: Should be with her PCP, Dr. Melvina Copeland in 1 to 3 days as well as her blood splatter analyst, Dr. Grey in the next 2 weeks to further discuss referrals onto a tertiary care center. Job ID: [id number]
--- NOTE | 2018-11-15 18:29 | EKG ---
Test Reason : Blood Pressure : / mmHG Vent. Rate : 087 BPM Atrial Rate : 087 BPM P-R Int : 152 ms QRS Dur : 078 ms QT Int : 354 ms P-R-T Axes : 077 056 064 degrees QTc Int : 425 ms Normal sinus rhythm Possible Left atrial enlargement Borderline ECG Confirmed by BAYRON CROWDER DO ([id number]), videotape editor MARIELENA DUQUE ([id number]) on 11/15/2018 6:29:17 PM Referred By: Confirmed By:BAYRON CROWDER DO
== END 2018-11-12 11:27 | disposition home or self-care (01) ==
LOC: ERS 13:09 → 2SW 16:09
PROVIDERS: ADMIT Family Medicine; ATTEND Family Medicine
DX: J38.3 Other diseases of vocal cords (principal); J44.1 Chronic obstructive pulmonary disease with (acute) exacerbation; F17.210 Nicotine dependence, cigarettes, uncomplicated; R79.89 Other specified abnormal findings of blood chemistry; R07.89 Other chest pain; G47.33 Obstructive sleep apnea (adult) (pediatric); M79.7 Fibromyalgia; Z79.899 Other long term (current) drug therapy; Z88.0 Allergy status to penicillin; Z88.1 Allergy status to other antibiotic agents; Z88.5 Allergy status to narcotic agent; Z88.8 Allergy status to other drugs, medicaments and biological substances
CPT/HCPCS: 71045; 80053; 82550; 83880; 84484; 85025; 93005; 94640; 94660; 96365; 96372; 96375; 96376; G0378; J1650; J1885; J2060; J2930; J7620

== ENCOUNTER 2018-11-26 11:58 | Emergency (ER) | payer BC ==
[2018-11-26 12:23] LABS: #Basophils 0.1 thou/uL (0.0-0.2); #Eosinphils 0.4 thou/uL (0.0-0.7); #Lymphocytes 3.4 thou/uL (1.20-3.40); #Monocytes 0.8 thou/uL (0.11-0.59); #Neutrophils 8.1 thou/uL (1.40-6.50); %Basophils 0.9 % (0.0-1.0); %Eosinophils 3.4 % (0.0-10.0); %Lymphocytes 26.6 % (21.0-51.0); %Monocytes 6.5 % (0.0-10.0); %Neutrophils 62.7 % (42.0-75.0); Hemoglobin 14.8 g/dL (12.0-16.0); Mean Corpuscular HGB CONC 32.1 g/dL (32.0-36.0); Mean Corpuscular Hemoglobin 28.2 pg (27.0-31.0); Mean Corpuscular Volume 87.9 fL (78.0-98.0); Mean Platelet Volume 7.7 fL (7.4-10.4); Platelet Count 258 thou/uL (130-400); RBC Distribution Width 14.1 % (11.5-14.5); Red Blood Cell (RBC) Count 5.25 mill/uL (4.20-5.40)
[2018-11-26 12:48] LABS: ALT (SGPT) 20 U/L (8-55); AST (SGOT) 20 U/L (5-34); Albumin 4.3 g/dL (3.5-5.0); Alkaline Phosphatase 64 U/L (40-150); Anion Gap 17 mmol/L (10-20); BUN (Urea Nitrogen) 12 mg/dL (7.0-18.7); Bilirubin, Total 0.7 mg/dL (0.2-1.2); Calc. Creatinine Clearance 0 mL/min (70-130); Calcium 9.4 mg/dL (7.8-10.44); Carbon Dioxide 19 mmol/L (22-29); Chloride 107 mmol/L (98-107); Estimated GFR-MDRD 76; Glucose 98 mg/dL (70-105); Protein, Total 7.3 g/dL (6.0-8.3); Sodium 139 mmol/L (136-145)
--- NOTE | 2018-11-26 14:03 | RAD ---
AP CHEST: Indications: Shortness of breath. Comparison: 11-11-18 FINDINGS: The lungs are clear. No infiltrate. Heart and mediastinum unremarkable. IMPRESSION: No acute finding. No interval change. POS: [facility]
[2018-11-26] MEDS ORDERED: Acetaminophen 500 MG TAB ONE (14:09)
--- NOTE | 2018-11-28 14:23 | EKG ---
Test Reason : Blood Pressure : / mmHG Vent. Rate : 087 BPM Atrial Rate : 087 BPM P-R Int : 170 ms QRS Dur : 062 ms QT Int : 360 ms P-R-T Axes : 067 041 051 degrees QTc Int : 433 ms Normal sinus rhythm Normal ECG Confirmed by PUJA RASMUSSEN, SERGE Wynn ([id number]), general expeditor MARIELENA DUQUE ([id number]) on 11/28/2018 2:22:43 PM Referred By: Confirmed By:SERGE LUO MD
== END 2018-11-26 14:15 | disposition home or self-care (01) ==
LOC: ERS 11:58
DX: J44.1 Chronic obstructive pulmonary disease with (acute) exacerbation (principal); F41.9 Anxiety disorder, unspecified; F17.210 Nicotine dependence, cigarettes, uncomplicated; Z79.899 Other long term (current) drug therapy; Z79.891 Long term (current) use of opiate analgesic
CPT/HCPCS: 36415; 71045; 80053; 84484; 85025; 93005; 94640; J7620

== ENCOUNTER 2018-12-24 14:52 | Inpatient (IN) | payer BC ==
[2018-12-24 15:24] LABS: #Basophils 0.1 thou/uL (0.0-0.2); #Eosinphils 0.9 thou/uL (0.0-0.7); #Lymphocytes 3.7 thou/uL (1.20-3.40); #Monocytes 1.2 thou/uL (0.11-0.59); #Neutrophils 9.5 thou/uL (1.40-6.50); %Basophils 0.9 % (0.0-1.0); %Eosinophils 5.6 % (0.0-10.0); %Monocytes 7.6 % (0.0-10.0); Hemoglobin 14.7 g/dL (12.0-16.0); Mean Corpuscular HGB CONC 31.6 g/dL (32.0-36.0); Mean Corpuscular Hemoglobin 28.2 pg (27.0-31.0); Mean Corpuscular Volume 89.3 fL (78.0-98.0); Mean Platelet Volume 7.8 fL (7.4-10.4); Platelet Count 255 thou/uL (130-400); RBC Distribution Width 13.5 % (11.5-14.5); Red Blood Cell (RBC) Count 5.21 mill/uL (4.20-5.40); White Blood Cell (WBC) Count 15.4 thou/uL (4.8-10.8)
--- NOTE | 2018-12-24 15:40 | RAD ---
CHEST ONE VIEW: History: Chest pain. Comparison: 11-26-18 FINDINGS: Cardiac silhouette is magnified by projection. Pulmonary vasculature is unremarkable. Mediastinum is midline. No lobar consolidation or evidence of pneumothorax. IMPRESSION: No active cardiopulmonary abnormalities are demonstrated. POS: [facility]
[2018-12-24 15:44] LABS: ALT (SGPT) 15 U/L (8-55); AST (SGOT) 20 U/L (5-34); Albumin 4.1 g/dL (3.5-5.0); Alkaline Phosphatase 64 U/L (40-150); Anion Gap 16 mmol/L (10-20); BUN (Urea Nitrogen) 15 mg/dL (7.0-18.7); Bilirubin, Total 0.4 mg/dL (0.2-1.2); CK (CPK) 333 U/L (29-168); Calc. Creatinine Clearance 0 mL/min (70-130); Calcium 9.6 mg/dL (7.8-10.44); Carbon Dioxide 19 mmol/L (22-29); Chloride 106 mmol/L (98-107); Estimated GFR-MDRD 70; Globulin 3.5 g/dL (2.4-3.5); Glucose 100 mg/dL (70-105); Lipase 34 U/L (8-78); Potassium 4.1 mmol/L (3.5-5.1); Protein, Total 7.6 g/dL (6.0-8.3); Sodium 137 mmol/L (136-145)
[2018-12-24] MEDS ORDERED: methylPREDNISolone Sod Succ/PF 125 MG/2 ML VIAL ONE (16:26)
[2018-12-24] MEDS ORDERED: Magnesium 2 GM/50 ML BAG (IN WATER) ONE (17:16)
[2018-12-24] MEDS ORDERED: diphenhydrAMINE 50 MG/ML VIAL ONE (17:16)
[2018-12-24] MEDS ORDERED: Azithromycin 500 MG VIAL ONE (18:03)
[2018-12-24] MEDS ORDERED: Albuterol Sulfate 2.5 mg/3 ml Neb ONE (18:06)
[2018-12-24] MEDS ORDERED: Lorazepam 2 MG/ML VIAL SLOW IVP SCH (19:15)
[2018-12-24] MEDS ORDERED: Ondansetron ODT 4 MG TAB PO PRN (19:26)
[2018-12-24] MEDS ORDERED: Ondansetron PF 4 MG/2 ML Vial IVP PRN (19:26)
[2018-12-24] MEDS ORDERED: Guaifenesin DM 100-10/5 ML UDCUP PO PRN (19:26)
[2018-12-24] MEDS ORDERED: Acetaminophen 325 MG TAB PO PRN (19:34)
[2018-12-24] MEDS ORDERED: cefTRIAXone\\ROCEPHIN 1 GM in Sodium Chloride 0.9% 100 ML IVPB SCH (20:00)
[2018-12-24 20:20] VITALS: BMI 26.2
[2018-12-24] MEDS: Sodium Chloride 0.9% 1,000 ML IV SCH (20:27)
[2018-12-24] MEDS: Famotidine 20 MG TAB PO SCH (20:32)
--- NOTE | 2018-12-24 20:47 | HP ---
REASON FOR ADMISSION: COPD exacerbation. HISTORY OF PRESENT ILLNESS AND REVIEW OF SYSTEMS: Ms. Rodriguez is a 48-year-old woman presenting with increased shortness of breath and persistent coughing fits. She has known COPD and has required multiple hospitalizations in the past due to COPD exacerbation, requiring intubation a total of nine times previously. The patient was seen in the ED last week and discharged on azithromycin as well as steroids, but reports having no improvement. She has continued using DuoNebs at home every 4 hours, but has had no significant relief in her dyspnea and wheezing. She reports having a cough that is nonproductive. Reports chills and sweats. Her O2 saturation at home has been 90%. She does use nasal BiPAP at home. The patient complains of tightness in her chest and has had no significant improvement since receiving treatment here in the ED. She has been given DuoNebs as well as methylprednisolone 125 mg IV. She was also given 2 g of magnesium sulfate and started on azithromycin. The patient admits to feeling very jittery and anxious with steroids, which is typically managed with Ativan. She does have underlying anxiety. The patient denies having any hemoptysis. Denies having any abdominal pain or cramping. Denies any nausea, but has had episodes of vomiting attributed to coughing fits shortly after eating. She denies any changes with her stools. No urinary symptoms. Denies having any headaches or dizziness. PAST MEDICAL HISTORY: 1. COPD. 2. Asthma. 3. Vocal cord dysfunction. 4. Restless legs syndrome. 5. Hypoglycemia. 6. Fibromyalgia. 7. Anxiety. PAST SURGICAL HISTORY: 1. Previous heart catheterization. 2. Ulnar nerve transposition to both arms. 3. ACDF (C5-C7 replaced). 4. Appendectomy. 5. Hysterectomy. 6. Tonsillectomy. 7. Bladder suspension. SOCIAL HISTORY: The patient is a previous cigarette smoker. Currently, she vapes as needed given she is attempting tobacco cessation. Currently on nicotine patch as well as Chantix. Denies any alcohol or illicit drug use. ALLERGIES: 1. HALDOL. 2. LEVAQUIN. 3. GEODON. 4. DOXYCYCLINE. 5. PENICILLIN, ALL CAUSING RASH AND HIVES. CURRENT MEDICATIONS: 1. Cymbalta 30 mg p.o. daily. 2. Estradiol 2 mg p.o. daily. 3. Melatonin 10 mg p.o. at bedtime. 4. Mirapex 0.5 mg p.o., four tablets at bedtime. 5. DuoNebs p.r.n. 6. Alprazolam 0.5 mg p.o. t.i.d. 7. Albuterol sulfate. 8. Clonazepam 1 mg p.o. daily. 9. Tylenol-codeine No.3, 1-2 tablets p.o. every 4-6 hours. 10. Olanzapine 5 mg p.o. daily. 11. Cymbalta 20 mg p.o. daily. 12. Ultram 50 mg 1-2 tablets p.o. every 6 hours as needed. 13. Prednisone 50 mg p.o. daily. PHYSICAL EXAMINATION: VITAL SIGNS: Temperature 98, pulse 100, respirations 20, blood pressure 149/100, O2 saturation 94% on room air. GENERAL: The patient appears very anxious and hyperventilating, requesting Ativan at first contact. Easily able to settle down and instructed to take slow deep breaths which seem to make her less tense and anxious. HEENT: Normocephalic and atraumatic. Pupils are equal, round, and reactive to light. Sclerae are anicteric. Oropharynx is clear. NECK: Supple. Full range of motion. LUNGS: With significant diffuse wheezing and accessory muscle use with tachypnea. CARDIAC: Regular rate and rhythm without audible murmurs, rubs, or gallops. ABDOMEN: Soft, nontender, nondistended. Normoactive bowel sounds present. EXTREMITIES: No clubbing, cyanosis, or edema. NEUROLOGICAL: Alert and oriented x3. SKIN: Without rash or jaundice. LABORATORY DATA: White blood count 15.4, hemoglobin 14.7, hematocrit 46.6, platelets 255. Sodium 137, potassium 4.1, BUN 15, creatinine 0.86, eGFR 70, total bilirubin 0.4. LFTs unremarkable. CK 333, troponin less than 0.010. Albumin 4.1, lipase 54. IMAGING DATA: Chest x-ray from December 24, 2018, no active cardiopulmonary abnormalities demonstrated. Pulmonary vasculature are unremarkable. No lobar consolidation or evidence of pneumothorax. IMPRESSION AND PLAN: Ms. Rodriguez will be admitted for management of the following conditions: 1. Chronic obstructive pulmonary disease exacerbation. We will continue DuoNebs q.4 hours. BiPAP requested with home nasal BiPAP settings. We will continue methylprednisolone 40 mg IV q.6 hours. Respiratory cultures requested. Given recent failure on azithromycin, we will administer Rocephin. We will consult Dr. 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 2. Anxiety. We will give 0.5 mg of Ativan IV and to resume her regular home medications. 3. Hypoglycemia. Currently, her glucose is 100. Continue to monitor. 4. Gastrointestinal prophylaxis. 5. Venous thromboembolism prophylaxis. The patient's case was discussed with Dr. Almeida, who has evaluated the patient and is in agreement with plan as above. Job ID: [id number]
[2018-12-25 05:28] LABS: #Monocytes 0.2 thou/uL (0.11-0.59); #Neutrophils 9.7 thou/uL (1.40-6.50); %Basophils 0.1 % (0.0-1.0); %Eosinophils 0.1 % (0.0-10.0); %Lymphocytes 8.7 % (21.0-51.0); %Neutrophils 89.1 % (42.0-75.0); Hemoglobin 12.5 g/dL (12.0-16.0); Mean Corpuscular HGB CONC 32.2 g/dL (32.0-36.0); Mean Platelet Volume 8.1 fL (7.4-10.4); Platelet Count 229 thou/uL (130-400); RBC Distribution Width 13.5 % (11.5-14.5); Red Blood Cell (RBC) Count 4.33 mill/uL (4.20-5.40); White Blood Cell (WBC) Count 10.9 thou/uL (4.8-10.8)
[2018-12-25] MEDS: Sodium Chloride 0.9% 1,000 ML IV SCH (05:48)
[2018-12-25 05:54] LABS: ALT (SGPT) 13 U/L (8-55); AST (SGOT) 17 U/L (5-34); Albumin 3.4 g/dL (3.5-5.0); Alkaline Phosphatase 51 U/L (40-150); Anion Gap 14 mmol/L (10-20); BUN (Urea Nitrogen) 16 mg/dL (7.0-18.7); Bilirubin, Total 0.2 mg/dL (0.2-1.2); Calc. Creatinine Clearance 106 mL/min (70-130); Calcium 8.5 mg/dL (7.8-10.44); Carbon Dioxide 20 mmol/L (22-29); Chloride 109 mmol/L (98-107); Estimated GFR-MDRD 80; Globulin 3.1 g/dL (2.4-3.5); Glucose 139 mg/dL (70-105); Potassium 4.5 mmol/L (3.5-5.1); Protein, Total 6.5 g/dL (6.0-8.3); Sodium 138 mmol/L (136-145)
[2018-12-25] MEDS ORDERED: Enoxaparin Sodium 40 MG/0.4 ML SYRINGE SC SCH (09:00)
[2018-12-25] MEDS ORDERED: Estradiol 1 MG TAB PO SCH (09:00)
[2018-12-25] MEDS ORDERED: DULoxetine 60 MG CAP PO SCH (09:00)
[2018-12-25] MEDS ORDERED: Diazepam 2 MG TAB PO SCH (09:00)
[2018-12-25] MEDS: Famotidine 20 MG TAB PO SCH (09:18)
[2018-12-25] MEDS ORDERED: Nicotine 14 MG PATCH TD PRN (10:03)
[2018-12-25] MEDS ORDERED: Lorazepam 0.5 MG TAB PO PRN (10:48)
[2018-12-25] MEDS ORDERED: Lorazepam 2 MG/ML VIAL SLOW IVP SCH (11:00)
[2018-12-25 12:18] VITALS: BP 122/69; TEMP 98.1
--- NOTE | 2018-12-25 13:22 | PQF ---
CLINICAL DOCUMENTATION IMPROVEMENT CLARIFICATION FORM: ICD-10 Updated PLEASE DO AN ADDENDUM TO THE PROGRESS NOTE WITH ANY DOCUMENTATION UPDATES OR ADDITIONS AND CARRY THROUGH TO DC SUMMARY. THANK YOU. DATE: 12/25/18 ATTN: DR. VALLEJO Please exercise your independent, professional judgment in responding to the clarification form. Clinical indicators are provided on the bottom of this form for your review Please check appropriate box(s): [ ] Acute Respiratory Failure: [ ] with Hypoxia[ ] with Hypercapnia [ ] Acute On Chronic Respiratory Failure: [ ] with Hypoxia [ ] with Hypercapnia [ ] Acute Respiratory Failure due to: (etiology) [ ] Chronic Respiratory Failure only [ ] with Hypoxia [ ] with Hypercapnia [ ] Hypoxia [ x ] Other diagnosis Asthma/COPD Exacerbation. [ ] Unable to determine In addition, please specify: Present on Admission (POA): [ x ] Yes [ ] No [ ] Unable to determine For continuity of documentation, please document condition throughout progress notes and discharge summary. Thank You. CLINICAL INDICATORS - SIGNS / SYMPTOMS / LABS ER NOTE: "INCREASED WORK OF BREATHING, AUDIBLE WHEEZING, AND 3-4 WORD DYSPNEA" "TACHYPNEA WITH DIFFUSE WHEEZING AND ACCESSORY MUSCLE USE." RISKS" H/O COPD H/O NUMEROUS INTUBATIONS TREATMENT: ALBUTEROL NEBS (ER-PRESENT) IV AZITHROMYCIN (ER) IV ROCEPHIN (ER) METHYLPREDNISOLONE INJECTION (ER-PRESENT) DUONEBS (ER-PRESENT) HOME BIPAP (This form is maintained as a part of the permanent medical record) 2014 [employer] All Rights Reserved [email or web address] Office: [phone] [email or web address]
--- NOTE | 2018-12-25 17:24 | DIS ---
DATE OF ADMISSION: 12/24/2018 DATE OF DISCHARGE: 12/25/2018 DISCHARGE DISPOSITION: Home. FOLLOWUP: 1. Follow up with primary care physician at [facility] in [place]. 2. Follow up with Dr. Grey as scheduled. 3. Follow up with outpatient speech therapy. DISCHARGE MEDICATIONS: 1. Prednisone 10 mg daily for next week. 2. All other home medications were left unchanged. The patient was seen and examined on the day of discharge. Denies any new complaints. Shortness of breath has significantly improved. BRIEF HOSPITAL COURSE: The patient is a 48-year-old female with vocal cord dysfunction/asthma and COPD, presented to the hospital with shortness of breath. Her initial vital signs in the emergency room showed temperature 98, respirations of 14, pulse rate of 94 with a blood pressure of 119/89 with O2 saturation of 93% on room air. She was started on IV antibiotics and steroids with good improvement. Her WBC count on admission was 15.4, that improved to 10.9 at discharge. The patient was evaluated by Dr. Joseph. Dr. Joseph recommended 10 mg prednisone for 1 week along with outpatient speech therapy. Dr. Joseph has cleared the patient for discharge. I discussed the case with Dr. Joseph at discharge. FINAL DIAGNOSES: 1. Asthma/chronic obstructive pulmonary disease exacerbation. 2. Vocal cord dysfunction. Outpatient speech therapy will be arranged per Dr. Joseph's recommendation. 3. Restless legs syndrome. 4. Chronic insomnia. 5. Fibromyalgia. 6. Anxiety. 7. Chronic kidney disease, stage 2. 8. Leukocytosis, unlikely to be infectious. 9. History of respiratory failure requiring intubations in the past. PLAN: Plan was discussed with the patient in detail. She stated understanding. Job ID: [id number]
[2018-12-25] MEDS ORDERED: Melatonin 3 MG TAB PO SCH (21:00)
[2018-12-25] MEDS ORDERED: Pramipexole Di-HCl 1 MG TAB PO SCH (21:00)
[2018-12-25] MEDS ORDERED: tiZANidine HCl 4 MG TAB PO SCH (21:00)
--- NOTE | 2018-12-25 22:12 | CON ---
DATE OF CONSULTATION: 12/25/2018 SERVICE: Pulmonary Medicine. REASON FOR CONSULT: Respiratory failure. HISTORY OF PRESENT ILLNESS: The patient is a 48-year-old white female with past medical history significant for vocal cord dysfunction. She was recently seen in the emergency department. Ultimately, she was given a Medrol Dosepak and some antibiotics. She seemed to be getting worse. As such, she returned to the emergency department and was subsequently admitted to the hospital. She gets some frequent DuoNeb. She basically feels like she has returned to her usual state of health at this point. She denies having any fevers or chills. She does cough a little bit. She denies any nausea, vomiting, or diarrhea. She was breathing very comfortably all throughout our conversation. She had no conversational dyspnea. When she gets up to use the restroom, she did not have any difficulty with breathing, but if she rushes, she starts feeling winded. That being said, her physical exam is quite functional as detailed below. PAST MEDICAL HISTORY: 1. Vocal cord dysfunction, certain. 2. Asthma, possible. 3. Restless legs syndrome. 4. Obstructive sleep apnea. 5. Fibromyalgia. 6. Anxiety disorder. PAST SURGICAL HISTORY: 1. Cardiac catheterization. 2. Ulnar nerve transposition to both arms. 3. ACDF of C5, C6, and C7. 4. Appendectomy. 5. Hysterectomy. 6. Tonsillectomy. 7. Bladder suspension surgery. SOCIAL HISTORY: She has a greater than [id number] history of smoking. She currently only vapes and denies using any tobacco products. She denies any illicit drugs or alcohol use. She has no exposure to chemicals, dust, asbestos, or tuberculosis. FAMILY HISTORY: Noncontributory. ALLERGIES: HALDOL, LEVAQUIN, GEODON, DOXYCYCLINE, AND PENICILLIN. MEDICATIONS: List of the patient's inpatient medications were reviewed. No specific updates were made at this time. REVIEW OF SYSTEMS: General, head, ears, eyes, nose, throat, cardiovascular, respiratory, GI, , musculoskeletal, neurologic, and skin is negative except as mentioned in the HPI. PHYSICAL EXAMINATION: VITAL SIGNS: Afebrile. Pulse 96, blood pressure 122/69, respirations 18, and saturation 95%, this is on room air. HEENT: Normocephalic and atraumatic. Sclerae white. Conjunctivae pink. Oral mucosa is moist without lesions. LUNGS: When we are having a conversation, she is breathing with normal tidal respiration. She does not have any expiratory wheezing or any prolonged expiratory phase. That being said as soon as I touched my stethoscope to her chest, she had audible wheezing transmitted from the upper airway for everybody to hear in the room. She did not have any inspiratory stridor. She did have transmitted breath sounds during the expiration. It was a monophasic wheeze that was transmitted to bilateral lung tay. It was not polyphonic in nature. There were no crackles or rhonchi appreciated. HEART: Normal rate. Regular. ABDOMEN: Soft, nontender, and nondistended. Bowel sounds are positive. MUSCULOSKELETAL: No cyanosis or clubbing. There is no pitting in the bilateral lower extremities. NEUROLOGIC: Grossly nonfocal. LABORATORY DATA: WBC 10.9, hemoglobin 12.5, and platelets 229,000. Basic metabolic profile and liver function studies are essentially unremarkable. Glucose 137, troponin is negative x1. Respiratory culture is likely contaminated. It is growing multiple organisms, all of which were normal respiratory matheus. IMAGING STUDIES: Chest x-ray demonstrates no acute cardiopulmonary abnormality. This is a one view, portable film. Heart size is normal. I do not see any acute abnormalities. There is a little bit of hardware in her neck at the C5, C6, and C7 level. ASSESSMENT AND PLAN: 1. Vocal cord dysfunction. 2. Asthma, possible with unlikely exacerbation. 3. The patient does not carry a diagnosis of chronic obstructive pulmonary disease based on most recent pulmonary function studies from one year ago. From my perspective, the patient is stable for transition out of the hospital. If you so desire, we can give her 5 days of steroids and antibiotics, but to be told, I do not think she needs these things. She can follow up with Dr. Grey in the outpatient setting in January with a CT scan that is already scheduled. If she gets ill, she can call up Dr. Grey to see if she can be seen sooner. I do think it would be perfectly reasonable to set her up with speech pathology in the outpatient setting, so that she can reestablish care with somebody who can work with her vocal cord dysfunction. Over the many years that we have been following her, I think that we have enough information here to suggest that she is suffering from either a factitious disorder or somatoform disease. If she remains in-house, Dr. Grey will assume care in the morning. Job ID: [id number]
== END 2018-12-25 16:37 | disposition home or self-care (01) | DRG 192 ==
LOC: ERS 14:52 → T4-B 19:19
PROVIDERS: ADMIT Emergency Medicine; ATTEND Emergency Medicine
DX: J44.1 Chronic obstructive pulmonary disease with (acute) exacerbation (principal); F41.9 Anxiety disorder, unspecified; J38.3 Other diseases of vocal cords; G25.81 Restless legs syndrome; M79.7 Fibromyalgia; E16.2 Hypoglycemia, unspecified; F51.04 Psychophysiologic insomnia; N18.2 Chronic kidney disease, stage 2 (mild); D72.829 Elevated white blood cell count, unspecified; Z90.49 Acquired absence of other specified parts of digestive tract; Z90.710 Acquired absence of both cervix and uterus; Z90.89 Acquired absence of other organs; Z87.891 Personal history of nicotine dependence; Z88.1 Allergy status to other antibiotic agents; Z88.0 Allergy status to penicillin; Z88.8 Allergy status to other drugs, medicaments and biological substances; Z79.899 Other long term (current) drug therapy
CPT/HCPCS: 36415; 36416; 71045; 80053; 82550; 83690; 84484; 85025; 87070; 87205; 93005; 94640; 94644; 94660; 94760; 96361; 96365; 96367; 96375; J0456; J0696; J1200; J1650; J2060; J2920; J2930; J3475; J7050; J7611; J7620

== ENCOUNTER 2019-01-06 19:12 | Emergency (ER) | payer BC ==
[2019-01-06 19:37] LABS: #Basophils 0.1 thou/uL (0.0-0.2); #Eosinphils 0.8 thou/uL (0.0-0.7); #Lymphocytes 3.8 thou/uL (1.20-3.40); #Monocytes 0.7 thou/uL (0.11-0.59); #Neutrophils 6.7 thou/uL (1.40-6.50); %Basophils 0.9 % (0.0-1.0); %Eosinophils 6.3 % (0.0-10.0); %Lymphocytes 31.1 % (21.0-51.0); %Monocytes 6.1 % (0.0-10.0); %Neutrophils 55.7 % (42.0-75.0); Hemoglobin 14.7 g/dL (12.0-16.0); Mean Corpuscular Hemoglobin 28.6 pg (27.0-31.0); Mean Corpuscular Volume 89.3 fL (78.0-98.0); Mean Platelet Volume 7.8 fL (7.4-10.4); Platelet Count 248 thou/uL (130-400); RBC Distribution Width 13.2 % (11.5-14.5); Red Blood Cell (RBC) Count 5.14 mill/uL (4.20-5.40)
--- NOTE | 2019-01-06 19:43 | RAD ---
CHEST ONE VIEW: 01/06/19 INDICATION: Difficulty breathing. COMPARISON: Prior exam dated 12/24/18. FINDINGS: The lungs are clear. The cardiomediastinal silhouette is within normal limits. ACDF involving the low er cervical spine is similar appearing. No acute osseous abnormality is evident. IMPRESSION: No acute cardiopulmonary abnormality. POS: [facility]
[2019-01-06 20:00] LABS: ALT (SGPT) 16 U/L (8-55); AST (SGOT) 16 U/L (5-34); Albumin 4.1 g/dL (3.5-5.0); Alkaline Phosphatase 55 U/L (40-150); Anion Gap 15 mmol/L (10-20); BUN (Urea Nitrogen) 12 mg/dL (7.0-18.7); Bilirubin, Total 0.3 mg/dL (0.2-1.2); Calc. Creatinine Clearance 0 mL/min (70-130); Calcium 9.5 mg/dL (7.8-10.44); Carbon Dioxide 25 mmol/L (22-29); Chloride 105 mmol/L (98-107); Estimated GFR-MDRD 65; Globulin 3.2 g/dL (2.4-3.5); Glucose 108 mg/dL (70-105); Potassium 3.7 mmol/L (3.5-5.1); Protein, Total 7.3 g/dL (6.0-8.3); Sodium 141 mmol/L (136-145)
[2019-01-06] MEDS ORDERED: Lidocaine 4% Topical Sol 50 ML BOT ONE (20:06)
[2019-01-06] MEDS ORDERED: Oxymetazoline HCl 0.05% ( 15 ML ) ONE (20:06)
[2019-01-06] MEDS ORDERED: Lorazepam 1 MG TAB ONE ×2 (21:18→21:29)
[2019-01-06] MEDS ORDERED: Ondansetron ODT 4 MG TAB ONE (21:18)
--- NOTE | 2019-01-10 13:13 | EKG ---
Test Reason : Blood Pressure : / mmHG Vent. Rate : 097 BPM Atrial Rate : 097 BPM P-R Int : 160 ms QRS Dur : 076 ms QT Int : 350 ms P-R-T Axes : 065 065 064 degrees QTc Int : 444 ms Normal sinus rhythm Normal ECG Confirmed by BAYRON CROWDER DO ([id number]), video editor MARIELENA DUQUE ([id number]) on 01/10/2019 1:12:55 PM Referred By: Confirmed By:BAYRON CROWDER DO
== END 2019-01-06 21:36 | disposition home or self-care (01) ==
LOC: ERS 19:12
DX: J38.2 Nodules of vocal cords (principal); J44.9 Chronic obstructive pulmonary disease, unspecified; F41.9 Anxiety disorder, unspecified; Z87.891 Personal history of nicotine dependence; Z79.899 Other long term (current) drug therapy; Z79.891 Long term (current) use of opiate analgesic
CPT/HCPCS: 31505; 36415; 71045; 80053; 84484; 85025; 93005; 94640; J7620; Q0162

== ENCOUNTER 2019-01-21 14:27 | Emergency (ER) | payer BC ==
[2019-01-21 15:06] LABS: #Basophils 0.1 thou/uL (0.0-0.2); #Monocytes 0.3 thou/uL (0.11-0.59); #Neutrophils 15.1 thou/uL (1.40-6.50); %Basophils 0.3 % (0.0-1.0); %Eosinophils 0.1 % (0.0-10.0); %Lymphocytes 5.8 % (21.0-51.0); %Monocytes 1.5 % (0.0-10.0); %Neutrophils 92.2 % (42.0-75.0); Mean Corpuscular HGB CONC 32.7 g/dL (32.0-36.0); Mean Corpuscular Hemoglobin 28.8 pg (27.0-31.0); Mean Corpuscular Volume 87.9 fL (78.0-98.0); Mean Platelet Volume 7.4 fL (7.4-10.4); Platelet Count 263 thou/uL (130-400); RBC Distribution Width 13.4 % (11.5-14.5); Red Blood Cell (RBC) Count 4.88 mill/uL (4.20-5.40); White Blood Cell (WBC) Count 16.4 thou/uL (4.8-10.8)
--- NOTE | 2019-01-21 15:25 | RAD ---
CHEST ONE VIEW: History: Dyspnea. Comparison: 01-06-19 FINDINGS: The lungs are clear. No pneumothorax or effusion. Cardiac silhouette and mediastinal contours are wit hin normal limits. IMPRESSION: No acute intrathoracic abnormality. Old right clavicular fracture. POS: [facility]
[2019-01-21 15:28] LABS: ALT (SGPT) 23 U/L (8-55); AST (SGOT) 17 U/L (5-34); Albumin 4.3 g/dL (3.5-5.0); Alkaline Phosphatase 65 U/L (40-150); Anion Gap 14 mmol/L (10-20); BUN (Urea Nitrogen) 15 mg/dL (7.0-18.7); Bilirubin, Total 0.6 mg/dL (0.2-1.2); CK (CPK) 235 U/L (29-168); Calc. Creatinine Clearance 0 mL/min (70-130); Calcium 9.6 mg/dL (7.8-10.44); Carbon Dioxide 23 mmol/L (22-29); Chloride 104 mmol/L (98-107); Estimated GFR-MDRD 72; Globulin 3.2 g/dL (2.4-3.5); Glucose 134 mg/dL (70-105); Lipase 30 U/L (8-78); Potassium 4.2 mmol/L (3.5-5.1); Protein, Total 7.5 g/dL (6.0-8.3); Sodium 137 mmol/L (136-145)
[2019-01-21] MEDS ORDERED: Acetaminophen 500 MG TAB ONE ×2 (15:48)
== END 2019-01-21 16:42 | disposition home or self-care (01) ==
LOC: ERS 14:27
DX: J44.1 Chronic obstructive pulmonary disease with (acute) exacerbation (principal); Z87.891 Personal history of nicotine dependence
CPT/HCPCS: 36415; 71045; 80053; 82550; 83690; 84484; 85025; 87804; 93005; 94640; J7620

== ENCOUNTER 2019-02-03 12:06 | Outpatient (CLI) | payer BC ==
[~2019-02-03 12:06] MED LIST changes: +ISOVUE-370 76%-LOCM 1 ML ONE; -Iopamidol 370 76% 100 ML VIAL ONE
--- NOTE | 2019-02-03 14:46 | CT ---
CHEST CT WITH CONTRAST: HISTORY: Lung nodule. Smoked for many years, quit 10 months ago. COMPARISON: 01/22/2018, 07/08/2017, 04/03/2015, and 05/22/2018. FINDINGS: Nonspecific, nonenlarged mediastinal lymph nodes. The degree of lymph node prominence has not change d. Heart size is within normal limits. There is no pericardial effusion. The descending thoracic a denita and abdominal aorta have a normal caliber. No periaortic fat stranding. Visualized esophagus is unremarkable. Portal vein is patent. Visualized solid organs are unremarkable. Trachea and central bronchi are patent. There are diffuse ground-glass opacities with a slightly mos aic appearance, suggestive of an edema or infiltrative process. There are no solid or cystic nodules in the lung parenchyma. No consolidation with air bronchograms. No pleural effusion or pneumothora x. There are stable linear opacities in the middle lobe and lingula. No lytic or blastic lesion in the osseous structures. Redemonstration of a cavitary lesion in the left upper lobe which has decreased in size when compared to the examination from June 2017. The small solid component is still present but has also decrea sed in size, currently measuring 0.5 cm. IMPRESSION: Interval development of a scattered ground-glass pattern suggesting atypical infection or hemorrhage. There is no evidence of a suspicious nodule in the visualized lung parenchyma. The previously note d nodule in the left upper lobe has decreased in size and appears to be associated with a small cavit ation. The solid component measures 0.5 cm, previously 0.8 cm. POS: [facility]
== END 2019-02-03 12:07 | disposition home or self-care (01) ==
LOC: BICCT 12:06
PROVIDERS: ATTEND Internal Medicine
DX: J44.9 Chronic obstructive pulmonary disease, unspecified (principal); R91.1 Solitary pulmonary nodule; G47.33 Obstructive sleep apnea (adult) (pediatric)
CPT/HCPCS: 71260; Q9966

== ENCOUNTER 2019-02-12 15:07 | Inpatient (IN) | payer BC ==
[~2019-02-12 15:07] MED LIST changes: -ISOVUE-370 76%-LOCM 1 ML ONE; +Iopamidol 370 76% 100 ML VIAL ONE; +Iopamidol 370 76% 50 ML VIAL FS ONE
--- NOTE | 2019-02-12 15:32 | RAD ---
FRadiograph chest one view: HISTORY: 48-year-old female with chest pain and dyspnea FINDINGS: The visualized lung tay are clear. The cardiomediastinal silhouette is normal. No pneumothorax. IMPRESSION: No acute cardiopulmonary findings.
[2019-02-12] MEDS ORDERED: Morphine 4 MG/ML VIAL ONE ×2 (15:39→17:35)
[2019-02-12 16:07] LABS: ALT (SGPT) 33 U/L (8-55); AST (SGOT) 24 U/L (5-34); Albumin 3.8 g/dL (3.5-5.0); Alkaline Phosphatase 62 U/L (40-150); Anion Gap 15 mmol/L (10-20); BUN (Urea Nitrogen) 16 mg/dL (7.0-18.7); Bilirubin, Total 0.6 mg/dL (0.2-1.2); CK (CPK) 190 U/L (29-168); Calc. Creatinine Clearance 0 mL/min (70-130); Calcium 8.9 mg/dL (7.8-10.44); Carbon Dioxide 24 mmol/L (22-29); Chloride 106 mmol/L (98-107); Estimated GFR-MDRD 81; Glucose 88 mg/dL (70-105); Potassium 3.8 mmol/L (3.5-5.1); Protein, Total 6.8 g/dL (6.0-8.3); Sodium 141 mmol/L (136-145)
[2019-02-12 16:29] LABS: CKMB 5.9 ng/mL (0-6.6)
[2019-02-12] MEDS ORDERED: Heparin 10,000 UNITS/ 10 ML VIAL SLOW IVP SCH ×2 (17:00)
[2019-02-12] MEDS ORDERED: Heparin 25,000 units/D5W 500 ML ONE (17:23)
[2019-02-12 17:38] LABS: Prothrombin Time 13.3 SEC (12.0-14.7)
[2019-02-12] MEDS ORDERED: methylPREDNISolone Sod Succ/PF 125 MG/2 ML VIAL ONE (18:59)
[2019-02-12] MEDS ORDERED: Midazolam HCl 2 mg/2 ml Vial ONE (19:02)
[2019-02-12] MEDS ORDERED: Fentanyl 100 MCG/2 ML VIAL ONE (19:02)
[2019-02-12 19:18] LABS: Troponin I 0.097 ng/mL (< 0.028)
[2019-02-12] MEDS ORDERED: Heparin 10,000 UNITS/1 ML VIAL ONE (19:36)
--- NOTE | 2019-02-12 19:38 | CON ---
DATE OF CONSULTATION: 02/12/2019 REASON FOR CONSULTATION: Unstable angina. HISTORY OF PRESENT ILLNESS: Ms. Rodriguez is a very pleasant 48-year-old woman. She has a history of multiple emergency room visits and has had multiple EKGs and troponins have all been negative. She is having pain off and on now for several days, but it has intensified today. The EKGs have always been normal in the past, but this time, it is severely abnormal, as will be outlined below. The patient states that she is still having chest pain despite nitrates. She also got aspirin and she is also on intravenous heparin. The patient also has COPD/asthma and she is on inhaled bronchodilators and she is on steroids intermittently. ALLERGIES: PENICILLIN, DOXYCYCLINE, HALOPERIDOL, LEVOFLOXACIN, LORATADINE, MORPHINE. SHE LIST THIS AN ALLERGY BUT SHE HAS RECEIVED IT HERE WITHOUT PROBLEM PENICILLIN G. REVIEW OF SYSTEMS: CONSTITUTIONAL: Positive for anxiety. Vision, no changes. Hearing, no changes. PULMONARY: Positive for shortness of breath and wheezing. CARDIAC: As outlined above. GASTROINTESTINAL: No nausea, vomiting, or diarrhea. SKIN: No rashes. NEUROLOGIC: No unilateral weakness or numbness. PSYCHIATRIC: Positive for anxiety. PHYSICAL EXAMINATION: GENERAL: This is a 48-year-old woman, continued to have chest pain off and on. VITAL SIGNS: Blood pressure 130/70, pulse is 100. HEENT: Eyes, sclerae nonicteric. Mouth, mucous membranes moist. NECK: Supple. LUNGS: Still some mild expiratory wheezing. CARDIAC: Tachycardiac for rest. No murmur, rub, or gallop. ABDOMEN: Soft and nontender. EXTREMITIES: No clubbing or cyanosis. She has no edema. She has good peripheral pulses. The patient states that she did have a normal cardiac catheterization in 2011. She thinks that was done at [facility]. She said it was painful. It was done in the right femoral area. PERTINENT LABORATORY DATA: Troponin level is 0.11. EKG, sinus rhythm, deep T-wave inversions in V2 through V6 especially in V3 and V4 with T-wave inversion in lead II and non-specific T-wave changes in aVF. ASSESSMENT: 1. Unstable angina. 2. Severely abnormal EKG. 3. Increased troponin level. 4. Pain continues despite aspirin with heparin and nitrates. PLAN: Proceed with cardiac catheterization. Discussed risk of stroke, heart attack, iodine allergy, loss of blood supply to leg or kidney, stent thrombosis, stent restenosis, she understands and wished to proceed. This will be performed by Dr. Carlo Coon. Job ID: [id number]
[2019-02-12] MEDS ORDERED: Nitroglycerin 0.4 MG TAB (25 Tab Bottle) SL PRN (19:59)
[2019-02-12] MEDS ORDERED: Sodium Chloride 0.9% 200 ML IV PRN ×2 (19:59→20:10)
[2019-02-12] MEDS ORDERED: Sodium Chloride 0.9% 1,000 ML IV SCH (20:00)
[2019-02-12] MEDS ORDERED: Amlodipine 5 MG TAB PO SCH (20:00)
[2019-02-12] MEDS ORDERED: Clopidogrel Bisulfate 300 MG TAB PO SCH (20:00)
[2019-02-12] MEDS ORDERED: Guaifenesin DM 100-10/5 ML UDCUP PO PRN (20:27)
[2019-02-12] MEDS ORDERED: Acetaminophen 650 MG Suppository PR PRN (20:27)
[2019-02-12] MEDS ORDERED: Senokot S 8.6-50 MG TAB PO PRN (20:27)
[2019-02-12] MEDS ORDERED: Ondansetron ODT 4 MG TAB PO PRN (20:27)
[2019-02-12] MEDS ORDERED: Ondansetron PF 4 MG/2 ML Vial IVP PRN (20:27)
[2019-02-12] MEDS ORDERED: Sodium Chloride 0.9% (PF) 10 ML VIAL FS PRN (20:50)
[2019-02-12] MEDS: Pramipexole Di-HCl 1 MG TAB PO SCH (21:15)
[2019-02-12] MEDS: Melatonin 3 MG TAB PO SCH (21:15)
[2019-02-12] MEDS: Nitroglycerin 2% Ointment 1 INCH/1 GM Packet TOP SCH (21:16)
[2019-02-12] MEDS: tiZANidine HCl 4 MG TAB PO SCH ×2 (21:17→23:25)
[2019-02-12] MEDS: ALPRAZolam 0.5 MG TAB PO SCH (21:17)
[2019-02-12] MEDS: Acetaminophen/Codeine 30-300mg Tablet PO PRN (21:19)
[2019-02-12 22:11] LABS: Troponin I 0.092 ng/mL (< 0.028)
[2019-02-12] MEDS: Acetaminophen 325 MG TAB PO PRN (23:30)
[2019-02-12 23:47] VITALS: BMI 28.3
--- NOTE | 2019-02-13 01:38 | HP ---
PRIMARY CARE PHYSICIAN: Dr. Melvina Copeland of [place]. CHIEF COMPLAINT: Chest pain. HISTORY OF PRESENT ILLNESS: This is a 48-year-old white female with a known history of asthma, vocal cord dysfunction, fibromyalgia, and anxiety, who presents with increasingly frequent worsening chest pains. She states that she has been having some stabbing chest pains intermittently over the last few weeks. They were not very bad at first and it progressed and then got worse a couple of days ago. She went into the [facility] [place] Emergency Room, where she was observed overnight. She apparently had an echocardiogram done there as well as cardiac markers that were all negative and was discharged yesterday. She states that yesterday, she had severe worsening of the pain. They were stabbing, substernal, radiated to the back, would come on for few seconds and then resolve. Sometimes all the way in-between with some persistent chest pressure. Today, it was so bad that she was not able to walk properly in her house and so she came into the emergency room here. In the ER, patient was noted to have new EKG changes of T-wave inversions on all of her precordial leads as well as new indeterminate troponin of 0.111. Dr. Green was notified from the emergency room. Patient was started on heparin drip and he is going to take her to the blood bank laboratory technologist. PAST MEDICAL HISTORY: 1. Asthma. 2. Vocal cord dysfunction with multiple intubations for perceived respiratory distress, though Dr. Grey is now cautioning that most of the time she would not need intubation and this can be managed with anxiety control. 3. Restless legs syndrome. 4. Fibromyalgia. 5. Obstructive sleep apnea. 6. Pelvic cyst, being referred to Dr. Manzanares as an outpatient for workup. PAST PSYCHIATRIC HISTORY: Anxiety. PAST SURGICAL HISTORY: 1. Normal cardiac catheterization in 2011. 2. Ulnar nerve transposition in both arms. 3. ACDF, C5 through C7. 4. Total hysterectomy. 5. Appendectomy. 6. Tonsillectomy. 7. Bladder suspension. SOCIAL HISTORY: Patient is a previous cigarette smoker. She was then trying to quit and states that she quit again about 2 weeks ago. She has been vaping as needed on and off and using nicotine patches as well as Chantix. No alcohol or illicit drug use. She is accompanied by her in the room. ALLERGIES: 1. GEODON. 2. PENICILLIN. 3. DOXYCYCLINE. 4. HALDOL. 5. LEVAQUIN. 6. CLARITIN. 7. MORPHINE. CURRENT MEDICATIONS: 1. Cymbalta 30 mg daily. 2. Estradiol 2 mg daily. 3. Mirapex 0.5 mg 4 tablets at bedtime. 4. DuoNeb as needed. 5. Alprazolam 0.5 mg 3 times a day as needed. She usually uses it just twice a day. 6. Listed as prednisone on the ER med list. However, the patient denies being on steroids in the last weeks. 7. Tizanidine 4 mg at night. 8. Melatonin as needed at night. FAMILY HISTORY: Both her parents and her sister had heart disease. Her mother had breast cancer. Maternal grandmother also had breast cancer. Brother and sister had thyroid cancer and her daughter had lymph node cancer. REVIEW OF SYSTEMS: CONSTITUTIONAL: No fevers. No chills. EYES: No double vision or blurred vision. ENT: No congestion, drainage, or sore throat. She does have the vocal cord dysfunction with intermittent stridor as per the past medical history. This is at baseline. CARDIOVASCULAR: See HPI. PULMONARY: She has baseline amount of coughing with occasional sputum. No current shortness of breath or wheezing, though she did have an episode of some anxiety with stridor during my interview that resolved with resting. GASTROINTESTINAL: She has some epigastric pain along with substernal chest pain. She also reports getting full very easily and having nausea and then vomiting food back up after some meals. This has been going on for several months. No diarrhea or constipation. GENITOURINARY: No dysuria or hematuria. MUSCULOSKELETAL: She has chronic diffuse muscle aches throughout her body from her myalgias. This is at baseline. SKIN: No rashes or lesions noted. NEUROLOGIC: She has had some tingling around her mouth on both sides of her face recently that comes and goes. No other numbness, tingling, or focal weakness. PHYSICAL EXAMINATION: VITAL SIGNS: Blood pressure 145/72, pulse 87, respirations 20, temperature 98.4, and O2 saturation 95% on room air. GENERAL: This is a well-developed, well-nourished white female, in mild distress from pain currently, but no respiratory distress. HEENT: Pupils equal, round, and reactive to light. Oropharynx is clear without lesions, erythema, or exudate. NECK: Supple. No lymphadenopathy. No thyroid nodules or enlargement. No JVD. HEART: Regular rate and rhythm. No murmurs, rubs, or gallops. LUNGS: Patient has some upper respiratory stridor on and off during exam, but no increased work of breathing and no crackles, wheezing, or rhonchi down in the lungs. ABDOMEN: Soft, nontender to palpation. Normoactive bowel sounds. No hepatosplenomegaly or other masses. EXTREMITIES: No clubbing or cyanosis. She does have some mild edema of bilateral ankles. She said this has been going on for the last few weeks associated with some weight gain over the last few months also. SKIN: No rashes or other lesions noted. NEUROLOGIC: She has intact strength and sensation in all extremities. No facial droop. PSYCHIATRIC: Alert and oriented x3. She has a mildly anxious affect and normal insight and judgment. LABORATORY DATA: Complete metabolic panel within normal limits. Troponin 0.111. CK-MB is negative. Creatine kinase is 190. Coagulation profile normal. No CBC has been checked yet. EKG; I did review the EKG in the emergency room along with the EKG done on January 21 earlier this month. This shows sinus tachycardia with new inversions of the T-waves in leads V1 through V6. No ST-segment depression or elevation. Chest x-ray; I did review the chest x-ray done in the emergency room along with the radiologist's report, does show normal cardiac silhouette, no infiltrates, no effusions, normal one-view chest x-ray. ASSESSMENT: 1. Chest pain consistent with unstable angina. She does have the EKG changes in the indeterminate troponin concerning for a proximal LAD lesion per Dr. Green. He is going to take her back to her cardiac cath this evening. For now, she has the heparin running as well as got morphine and DuoNebs in the emergency room. 2. Asthma with vocal cord dysfunction. Patient does have an intermittent stridor, but no persistent respiratory distress. This is consistent with her previous history and what we had seen in her previous hospitalizations. We will give her DuoNebs as needed. She does not require any steroids at this point. Should patient's respiratory status decompensate, then we can ask Dr. Que to see her. 3. Anxiety. We will resume patient's Ativan. 4. Gastrointestinal prophylaxis. We will put the patient on Protonix once daily. CODE STATUS: I did discuss this with the patient. She is a full code. Should she be incapacitated, her would be her medical decision maker. His name is Regino Rodriguez. Job ID: [id number]
[2019-02-13] MEDS: Acetaminophen/Codeine 30-300mg Tablet PO PRN ×4 (01:40→17:09)
[2019-02-13] MEDS ORDERED: Fentanyl 100 MCG/2 ML VIAL SLOW IVP SCH (04:45)
[2019-02-13 04:46] LABS: #Monocytes 0.1 thou/uL (0.11-0.59); #Neutrophils 8.9 thou/uL (1.40-6.50); %Basophils 0.2 % (0.0-1.0); %Eosinophils 0.1 % (0.0-10.0); %Lymphocytes 9.8 % (21.0-51.0); %Monocytes 1.2 % (0.0-10.0); %Neutrophils 88.7 % (42.0-75.0); Mean Corpuscular HGB CONC 31.6 g/dL (32.0-36.0); Mean Corpuscular Hemoglobin 29.1 pg (27.0-31.0); Mean Corpuscular Volume 91.9 fL (78.0-98.0); Mean Platelet Volume 7.8 fL (7.4-10.4); Platelet Count 247 thou/uL (130-400); RBC Distribution Width 13.5 % (11.5-14.5); Red Blood Cell (RBC) Count 4.13 mill/uL (4.20-5.40)
[2019-02-13 05:05] LABS: Anion Gap 16 mmol/L (10-20); BUN (Urea Nitrogen) 16 mg/dL (7.0-18.7); Calc. Creatinine Clearance 102 mL/min (70-130); Carbon Dioxide 21 mmol/L (22-29); Chloride 106 mmol/L (98-107); Cholesterol 192 mg/dl (< 200 Desired); Estimated GFR-MDRD 69; Glucose 205 mg/dL (70-105); HDL Cholesterol 94 mg/dL (>60 Neg Risk); LDL Cholesterol, Calculated 85 mg/dL; Potassium 4.7 mmol/L (3.5-5.1); Sodium 138 mmol/L (136-145); Triglycerides 65 mg/dL (Less than 150)
[2019-02-13] MEDS: Nitroglycerin 2% Ointment 1 INCH/1 GM Packet TOP SCH (05:07)
[2019-02-13 05:11] LABS: Troponin I 0.039 ng/mL (< 0.028)
[2019-02-13] MEDS ORDERED: diphenhydrAMINE 25 MG CAP PO PRN (08:15)
[2019-02-13] MEDS ORDERED: Fentanyl 100 MCG/2 ML VIAL SLOW IVP PRN (08:15)
[2019-02-13] MEDS: DULoxetine 30 MG CAP PO SCH (08:44)
[2019-02-13] MEDS: Aspirin 81 mg Enteric Coated Tablet PO SCH ×2 (08:44→08:51)
[2019-02-13] MEDS: Amlodipine 5 MG TAB PO SCH (08:44)
[2019-02-13] MEDS: Estradiol 1 MG TAB PO SCH (08:44)
[2019-02-13] MEDS: Pantoprazole 40 MG VIAL IVP SCH (08:45)
[2019-02-13] MEDS: ALPRAZolam 0.5 MG TAB PO SCH ×2 (08:45→20:08)
--- NOTE | 2019-02-13 08:53 | CON ---
DATE OF CONSULTATION: 02/12/2019 ADDENDUM: Emergent cardiac catheterization revealed no obstructive atherosclerotic coronary artery disease. On the left ventriculogram, the very distal tip of the apex appears hypokinetic. The distal LAD is a small caliber. Clinically, this is suspicious for coronary spasm as a possibility of the source of her EKG changes and chest pain. The left ventricular ejection fraction is within normal limits. The patient pain is not due to obstructive coronary artery disease. Job ID: [id number]
[2019-02-13] MEDS ORDERED: Clopidogrel Bisulfate 75 MG TAB PO SCH (09:00)
--- NOTE | 2019-02-13 09:11 | PRG ---
DATE OF SERVICE: 02/13/2019 SUBJECTIVE: Ms. Rodriguez is still having some chest pain, but not as severe as last night. She gets dizzy when she gets up, she says. She has severe right groin pain at the cath site. OBJECTIVE: VITAL SIGNS: Blood pressure was 141/82 and then 114/59 this morning, pulse is in the 80s. LUNGS: Clear. CARDIAC: Normal S1. Normal S2. LABORATORY DATA: Cardiac enzymes, the peak was 0.111 on admission. ASSESSMENT: 1. Chest pain with abnormal EKG, suspect possible coronary spasm. 2. Tobacco dependence. 3. Asthma/chronic obstructive pulmonary disease. 4. Groin pain. PLAN: 1. Do ultrasound of the right groin. 2. We will hold aspirin and Plavix this morning until the ultrasound is done. Job ID: [id number]
[2019-02-13] MEDS: Nitroglycerin 0.4 MG TAB (25 Tab Bottle) SL PRN (10:08)
[2019-02-13] MEDS: HYDROcodone/Acetaminophen 5/325 mg Tablet PO PRN ×3 (10:26→20:08)
[2019-02-13] MEDS ORDERED: Naloxone HCl 0.4 mg/ml Vial ONE ×2 (10:33→10:59)
[2019-02-13] MEDS ORDERED: Ketorolac Tromethamine 30 MG/ML VIAL ONE (10:50)
[2019-02-13] MEDS ORDERED: traMADol HCl 50 MG TAB PO SCH (11:00)
[2019-02-13] MEDS ORDERED: Colchicine 0.6 MG TAB PO SCH (11:00)
--- NOTE | 2019-02-13 11:01 | PQF ---
CLINICAL DOCUMENTATION IMPROVEMENT CLARIFICATION FORM: ICD-10 Updated PLEASE DO AN ADDENDUM TO THE PROGRESS NOTE WITH ANY DOCUMENTATION UPDATES OR ADDITIONS AND CARRY THROUGH TO DC SUMMARY. THANK YOU. DATE: 02/13/19 ATTN: DR. VALLEJO Please exercise your independent, professional judgment in responding to the clarification form. Clinical indicators are provided on the bottom of this form for your review Please check appropriate box(s): AMI TYPE: [ ] NSTEMI [ ] [place] TYPE 2 [ ] DEMAND ISCHEMIA [ ] Other diagnosis [ ] Unable to determine In addition, please specify: Present on Admission (POA): [ ] Yes [ ] No [ ] Unable to determine CLINICAL INDICATORS - SIGNS / SYMPTOMS / LABS ER NOTE: "NSTEMI" TROPONINS: 0.097 / 0.092 / 0.039 RISKS: OBSTRUCTIVE SLEEP APNEA ASTHMA TREATMENT: IV HEPARIN (ER) IV MORPHINE (ER) PLAVIX (02/13) NITROGLYCERIN (02/12-02/13) CARDIAC CATHETERIZATION CARDIOLOGY CONSULT (This form is maintained as a part of the permanent medical record) 2014 [employer]. All Rights Reserved ALLISON [email or web address] Office: [phone] [facility]
[2019-02-13] MEDS ORDERED: Nitroglycerin 50 MG/250 ML BOT 250 ML ONE (11:37)
[2019-02-13] MEDS ORDERED: Sodium Chloride 0.9% 1,000 ML IV SCH (11:45)
[2019-02-13] MEDS ORDERED: Nitroglycerin 50 MG/250 ML BOT 250 ML IVPB SCH (11:45)
[2019-02-13] MEDS: Ketorolac Tromethamine 30 MG/ML VIAL IVP SCH ×4 (11:51→23:52)
--- NOTE | 2019-02-13 11:58 | PRG ---
DATE OF SERVICE: 02/13/2019 ADDENDUM: SUBJECTIVE: Ms. Rodriguez had increasing amounts of chest pain. "Code green," was called. The patient states that her pain is much worse with a deep breath. EKG is unchanged. ASSESSMENT: Recurrent chest pain of uncertain etiology ? Pericardial. PLAN: 1. We will move to intensive care unit for further close monitoring. 2. We will give her intravenous Toradol. 3. Add colchicine. Job ID: [id number]
[2019-02-13 12:06] LABS: Troponin I 0.049 ng/mL (< 0.028)
[2019-02-13] MEDS: Acetaminophen 325 MG TAB PO PRN (12:28)
[2019-02-13] MEDS ORDERED: predniSONE 20 MG TAB PO SCH (13:00)
--- NOTE | 2019-02-13 15:10 | ULT ---
SOFT TISSUE ULTRASOUND: HISTORY: Evaluate for pseudoaneurysm. Pain. COMPARISON: None. TECHNIQUE: Targeted sonographic imaging of the right groin is performed. FINDINGS: There is no sonographic evidence of an abscess or fluid collection. No definite evidence of a pseudo aneurysm. The Doppler images are limited due to interface from the machine. IMPRESSION: Suboptimal Doppler. If there is still concern for pseudoaneurysm, repeat examination with a differen t machine is recommended. POS: [facility]
--- NOTE | 2019-02-13 17:46 | ULT ---
ULTRASOUND RIGHT GROIN FOR PSEUDOANEURYSM EVALUATION 02/13/19 INDICATION: Groin pain. Assess for pseudoaneurysm. No evidence of hematoma. No evidence of pseudoaneurysm. The femoral vein and femoral artery show norm al flow. IMPRESSION: No evidence of pseudoaneurysm identified. POS: [facility]
[2019-02-13 18:20] LABS: Troponin I 0.056 ng/mL (< 0.028)
--- NOTE | 2019-02-13 18:37 | CON ---
DATE OF CONSULTATION: 02/13/2019 SERVICE: Pulmonary Medicine. REASON FOR CONSULT: ICU patient. HISTORY OF PRESENT ILLNESS: The patient is a 48-year-old white female with past medical history significant for vocal cord dysfunction and multiple other somatic issues. She presented to the hospital with chest discomfort. Ultimately, she went for a cardiac catheterization. During this procedure, a mildly impaired ventricular function was identified. She had possible left anterior descending artery spasm , and only mild coronary artery disease. Nothing was required. Ultimately, she was tucked back in to the floor. She had recurrence of her chest discomfort. An EKG showed some flipped T-waves. As such, she was sent to the ICU for nitroglycerin drip, treating presumptive vasospasm. She indicates having a little bit of increased work of breathing. Thankfully, she is not having any of her vocal cord dysfunction at this moment. Denies any current fevers or chills. She is coughing, but not bringing up any sputum. She is not having any fevers. She is having a headache and requesting some medication for that. Because she was going to be placed on a nitroglycerin drip, she was moved to the ICU. She has no specific complaints otherwise. PAST MEDICAL HISTORY: 1. Vocal cord dysfunction, certain. 2. Asthma, possible. 3. Obstructive sleep apnea. 4. Restless legs syndrome. 5. Fibromyalgia. 6. Anxiety disorder. 7. Coronary artery disease, not flow limiting. PAST SURGICAL HISTORY: 1. Cardiac catheterization. 2. Ulnar nerve transposition to both arms. 3. ACDF of C5, C6, C7. 4. Appendectomy. 5. Hysterectomy. 6. Tonsillectomy. 7. Bladder suspension surgery. SOCIAL HISTORY: She has a greater than [id number] history of smoking. Currently, she vapes and denies using any other types of tobacco products. She denies any street drugs. She has no exposure to chemicals, dust, asbestos, or tuberculosis. FAMILY HISTORY: Noncontributory. ALLERGIES: HALDOL, LEVAQUIN, GEODON, DOXYCYCLINE, AND PENICILLIN. MEDICATIONS: List of her inpatient medications was reviewed. No updates were made at this time. REVIEW OF SYSTEMS: General, head, ears, eyes, nose, throat, cardiovascular, respiratory, GI, , musculoskeletal, neurologic, and skin is negative except as mentioned in the HPI. PHYSICAL EXAMINATION: VITAL SIGNS: Afebrile with a T-max 99.2, pulse 86, blood pressure 120/76, respirations 17, and saturation 96% on 3 L nasal cannula. GENERAL: The patient is awake and alert, in no apparent distress. LUNGS: Really decent air entry. There is a prolonged expiratory phase. At the end of breathing, there is a monophonic wheeze. This is present in bilateral lung tay. HEART: Normal rate, regular. ABDOMEN: Soft, nontender, nondistended. Bowel sounds are positive. MUSCULOSKELETAL: No cyanosis or clubbing. There is trace to 1+ pitting in the bilateral lower extremities. NEUROLOGIC: Grossly nonfocal. LABORATORY DATA: WBC 10.0, hemoglobin 12.0, platelets 247,000. INR 1.0. Troponin is gently up-trending to 0.049, magnesium 2.4, glucose 113,000. Basic metabolic profile is otherwise unremarkable. Liver function studies are also unremarkable. Influenza A and B are negative. Respiratory cultures also unremarkable. ASSESSMENT: 1. Vocal cord dysfunction. 2. Asthma, possible. 3. Chest pain, currently under investigation. 4. Vasospasm of the LAD, possible. DISCUSSION AND PLAN: The patient will remain in the ICU on a nitroglycerin drip. I will initiate a 5-day course of very low-dose steroids as we do not have her home inhaler available here. We will schedule nebulized medications q.6 hours. Mobilization efforts will be pursued. Tylenol will be provided for any type of head discomfort. 70 minutes have been devoted to this patient in various activities. I personally reviewed all imaging studies and laboratory data noted within this document. For fifty percent of this time, I was interacting with the patient at the bedside or coordinating care with the care team. For the remainder of the time I was immediately available to the patient in the hospital unit. Job ID: [id number] MTDD
[2019-02-13] MEDS: tiZANidine HCl 4 MG TAB PO SCH (20:08)
[2019-02-13] MEDS: Pramipexole Di-HCl 1 MG TAB PO SCH (20:08)
[2019-02-13] MEDS: Colchicine 0.6 MG TAB PO SCH (20:08)
[2019-02-13] MEDS: Melatonin 3 MG TAB PO SCH (20:14)
--- NOTE | 2019-02-13 22:55 | PDOC.PN ---
- Subjective Encounter Start Date: 02/13/19 Encounter Start Time: 16:30 Patient seen and examined for CP. On Nitro drip. CP improving. No new complaints. No overnight events - Objective Resuscitation Status - Order Detail: 02/12/19 18:40 Resuscitation Status Routine Resuscitation Status: FULL: Full Resuscitation Discussed with: Patient MAR Reviewed: Yes Vital Signs & Weight: Vital Signs (12 hours) Temp Pulse Resp Pulse Ox 02/13/19 19:24 100 02/13/19 19:00 98.6 F 02/13/19 18:34 95 02/13/19 18:33 76 18 95 02/13/19 14:40 80 19 96 02/13/19 12:00 99.2 F 96 Weight Weight 183 lb 3 oz Most Recent Monitor Data Heart Rate from ECG 78 NIBP 105/61 NIBP BP-Mean 75 Respiration from ECG 16 SpO2 97 I&O: 02/12/19 02/13/19 02/14/19 06:59 06:59 06:59 Intake Total 1800 840.3 Output Total 750 1200 Balance 1050 -359.7 Result Diagrams: 02/14/19 04:39 02/14/19 04:39 Additional Labs: Accuchecks 02/13/19 10:33 POC Glucose 113 H EKG Reviewed by me: Yes (Tele SR) Phys Exam - Physical Examination Constitutional: NAD Respiratory: no wheezing, no rhonchi Cardiovascular: RRR, no rub Gastrointestinal: soft, non-tender, positive bowel sounds Musculoskeletal: no edema Neurological: moves all 4 limbs Dx/Plan - Plan DVT proph w/SCDs 1. CP/Elevated troponin/Unstable angina 2. DM2 3. CKD 3 4. HTN 5. Other issues per previous notes PLAN: Cont Nitro drip Cont ASA Pain control Cont other meds as below Review of Systems - Review of Systems Respiratory: negative: Cough, Dry, Shortness of Breath, Hemoptysis, SOB with Excertion, Pleuritic Pain, Sputum, Wheezing Cardiovascular: negative: chest pain, palpitations, orthopnea, paroxysmal nocturnal dyspnea, edema, light headedness, other - Medications/Allergies Allergies/Adverse Reactions: Allergies Allergy/AdvReac Type Severity Reaction Status Date / Time ziprasidone [From Geodon] Allergy Severe Verified 12/24/18 19:55 Penicillins Allergy Intermediate Hives Verified 12/24/18 19:55 doxycycline Allergy Hives Verified 12/24/18 19:55 haloperidol [From Haldol] Allergy Verified 12/24/18 19:55 levofloxacin [From Levaquin] Allergy Hives Verified 12/24/18 19:55 loratadine [From Claritin] Allergy Rash Verified 12/24/18 19:55 morphine Allergy Verified 12/24/18 19:55 penicillin G Allergy Verified 12/24/18 19:55 Medications: Current Medications Acetaminophen (Tylenol) 650 mg PO Q4H PRN PRN Reason: Headache/Fever/Mild Pain (1-3) Last Admin: 02/13/19 12:28 Dose: 650 mg Acetaminophen (Tylenol) 650 mg LA Q4H PRN PRN Reason: Headache/Fever/Mild Pain (1-3) Acetaminophen/Codeine Phosphate (Tylenol #3) 1 tab PO Q4H PRN PRN Reason: Mild Pain (1-3) Last Admin: 02/13/19 17:09 Dose: 1 tab Acetaminophen/Codeine Phosphate (Tylenol #3) 2 tab PO Q4H PRN PRN Reason: Moderate Pain (4-6) Last Admin: 02/13/19 05:42 Dose: 2 tab Hydrocodone Bitart/Acetaminophen ([place] 5/325) 1 tab PO Q6H PRN PRN Reason: Moderate Pain (4-6) Last Admin: 02/13/19 20:08 Dose: 1 tab Albuterol/Ipratropium (Duoneb) 3 ml NEB Q4H PRN PRN Reason: SOB &/or Wheezing Last Admin: 02/13/19 07:10 Dose: 3 ml Albuterol/Ipratropium (Duoneb) 3 ml NEB [id number] [facility] Last Admin: 02/13/19 18:33 Dose: 3 ml Alprazolam (Xanax) 0.5 mg PO BID [facility] Last Admin: 02/13/19 20:08 Dose: 0.5 mg Amlodipine Besylate (Norvasc) 5 mg PO DAILY [facility] Last Admin: 02/13/19 08:44 Dose: 5 mg Colchicine (Colcrys) 0.6 mg PO BID [facility] Last Admin: 02/13/19 20:08 Dose: 0.6 mg Diphenhydramine HCl (Benadryl) 25 mg PO Q6H PRN PRN Reason: Itching & Insomnia Duloxetine HCl (Cymbalta) 30 mg PO DAILY [facility] Last Admin: 02/13/19 08:44 Dose: 30 mg Estradiol (Estrace) 1.25 mg PO DAILY [facility] Last Admin: 02/13/19 08:44 Dose: 1.25 mg Sodium Chloride (Normal Saline 0.9%) 200 mls @ 0 mls/hr IV ONE PRN PRN Reason: SBP < 90 Stop: 02/15/19 20:11 Ketorolac Tromethamine (Toradol) 30 mg IVP Q6HR [facility] Stop: 02/18/19 10:55 Last Admin: 02/13/19 18:03 Dose: 30 mg Melatonin (Melatonin) 3 mg PO HS [facility] Last Admin: 02/13/19 20:14 Dose: 3 mg Nitroglycerin (Nitrostat) 0.4 mg SL Q5MIN PRN PRN Reason: Chest Pain Last Admin: 02/13/19 10:08 Dose: 0.4 mg Ondansetron HCl (Zofran Odt) 4 mg PO Q6H PRN PRN Reason: Nausea/Vomiting Ondansetron HCl (Zofran) 4 mg IVP Q6H PRN PRN Reason: Nausea/Vomiting Pantoprazole Sodium (Protonix) 40 mg IVP DAILY [facility] Last Admin: 02/13/19 08:45 Dose: 40 mg Pramipexole Dihydrochloride (Mirapex) 1 mg PO QPM [facility] Last Admin: 02/13/19 20:08 Dose: 1 mg Prednisone (Prednisone) 20 mg PO QAM-WM [facility] Stop: 02/18/19 08:01 Senna/Docusate Sodium (Senokot S) 2 tab PO BIDPRN PRN PRN Reason: Constipation Sodium Chloride (Normal Saline Pf) 10 ml FS PRN PRN PRN Reason: RECONSTITUTION Tizanidine HCl (Zanaflex) 4 mg PO HS [facility] Last Admin: 02/13/19 20:08 Dose: 4 mg
[2019-02-14] MEDS: HYDROcodone/Acetaminophen 5/325 mg Tablet PO PRN ×4 (02:46→22:07)
[2019-02-14 05:41] LABS: #Eosinphils 0.1 thou/uL (0.0-0.7); #Monocytes 1.1 thou/uL (0.11-0.59); #Neutrophils 8.8 thou/uL (1.40-6.50); %Basophils 0.1 % (0.0-1.0); %Lymphocytes 23.2 % (21.0-51.0); %Monocytes 8.3 % (0.0-10.0); %Neutrophils 67.4 % (42.0-75.0); Hemoglobin 11.1 g/dL (12.0-16.0); Mean Corpuscular HGB CONC 31.8 g/dL (32.0-36.0); Mean Corpuscular Hemoglobin 29.1 pg (27.0-31.0); Mean Corpuscular Volume 91.2 fL (78.0-98.0); Mean Platelet Volume 8.3 fL (7.4-10.4); Platelet Count 245 thou/uL (130-400); RBC Distribution Width 13.7 % (11.5-14.5); Red Blood Cell (RBC) Count 3.81 mill/uL (4.20-5.40)
[2019-02-14 05:59] LABS: Anion Gap 11 mmol/L (10-20); BUN (Urea Nitrogen) 15 mg/dL (7.0-18.7); Calc. Creatinine Clearance 117 mL/min (70-130); Calcium 8.8 mg/dL (7.8-10.44); Carbon Dioxide 27 mmol/L (22-29); Chloride 102 mmol/L (98-107); Estimated GFR-MDRD 81; Glucose 129 mg/dL (70-105); Sodium 136 mmol/L (136-145)
[2019-02-14 06:02] LABS: Troponin I 0.035 ng/mL (< 0.028)
[2019-02-14] MEDS: Ketorolac Tromethamine 30 MG/ML VIAL IVP SCH ×3 (06:21→18:17)
[2019-02-14] MEDS: DULoxetine 30 MG CAP PO SCH (08:17)
[2019-02-14] MEDS: ALPRAZolam 0.5 MG TAB PO SCH ×3 (08:17→21:44)
[2019-02-14] MEDS: Amlodipine 5 MG TAB PO SCH (08:17)
[2019-02-14] MEDS: predniSONE 20 MG TAB PO SCH (08:17)
[2019-02-14] MEDS: Pantoprazole 40 MG VIAL IVP SCH (08:19)
[2019-02-14] MEDS: Colchicine 0.6 MG TAB PO SCH ×2 (10:03→21:44)
[2019-02-14] MEDS: Estradiol 1 MG TAB PO SCH (10:03)
--- NOTE | 2019-02-14 10:38 | PDOC.CTH ---
Cardiology Progress Note - Subjective She continues to have chest pains in to her left face. - Objective Vital Signs Temp Pulse Resp Pulse Ox 02/14/19 07:42 83 22 H 95 02/14/19 07:00 98.0 F 02/14/19 04:00 98 F 02/14/19 00:00 97.7 F 02/13/19 23:41 96 02/13/19 23:00 96 Weight 183 lb 3 oz 02/13/19 02/14/19 02/15/19 06:59 06:59 06:59 Intake Total 1800 1581.3 240 Output Total 750 1825 450 Balance 1050 -243.7 -210 - Physical Examination General/Neuro: alert & oriented x3, NAD Neck: no JVD present Lungs: CTA, unlabored respirations Heart: RRR Abdomen: NT/ND Extremities: + edema B (trace) - Telemetry Telemetry Rhythm: NSR - Labs Result Diagrams: 02/14/19 04:39 02/14/19 04:39 Troponin/CKMB CK-MB (CK-2) 5.9 ng/mL (0-6.6) 02/12/19 15:31 Troponin I 0.035 ng/mL (< 0.028) H 02/14/19 04:39 - Assessment/Plan 1. Chest pain PLAN: - Will change her nitro drip to PO long acting Nitro in case this is a coronary spasm. - Continue colchicine for now but no great change in pain since started yesterday.
--- NOTE | 2019-02-14 10:51 | PRG ---
DATE OF SERVICE: 02/14/2019 SERVICE: Pulmonary Medicine. INTERVAL HISTORY: The patient is doing fine from respiratory standpoint. She indicates that she has a little bit of tightness to the chest. She also has some chest pain that comes and goes. Otherwise, there has been no change to her condition and she has no other events reported. Nursing reports no events. PHYSICAL EXAMINATION: VITAL SIGNS: Afebrile. Pulse 82, blood pressure 130/75, respirations 18, and saturation 96% on room air. GENERAL: The patient is awake and alert, in no apparent distress. LUNGS: Decent air entry. No prolonged expiratory phase or wheezing is present. HEART: Normal rate, regular. ABDOMEN: Soft, nontender, and nondistended. Bowel sounds are positive. MUSCULOSKELETAL: No cyanosis or clubbing. No pitting in the bilateral lower extremities. NEUROLOGIC: Grossly nonfocal. LABORATORY DATA: WBC 13.0, hemoglobin 11.1, platelets 245,000. ESR 7. Basic metabolic profile is completely unremarkable with a normal magnesium. Troponin is trending downward to 0.035. IMAGING: Compression ultrasound shows no evidence for pseudoaneurysm. ASSESSMENT: 1. Chest pain. 2. Vasospasm of the LAD. 3. Vocal cord dysfunction. 4. Asthma, possible. DISCUSSION AND PLAN: We will keep the patient in the ICU, she is still on nitroglycerin drip. She is being converted over to p.o. If she makes this transition smoothly, she can be considered for transition to the floor. We will continue our steroids and nebulized medications. Pulmonary/Critical will continue to follow along. I will add azelastine and Flonase to her regimen in order to see if we can decrease nasal symptoms. Job ID: [id number]
[2019-02-14] MEDS: Acetaminophen/Codeine 30-300mg Tablet PO PRN (11:00)
[2019-02-14] MEDS ORDERED: Azelastine 137 MCG/Spray 30 ML NS SCH (11:15)
[2019-02-14] MEDS: Nitroglycerin 0.4 MG TAB (25 Tab Bottle) SL PRN ×2 (12:26→14:18)
[2019-02-14] MEDS: tiZANidine HCl 4 MG TAB PO SCH (21:44)
[2019-02-14] MEDS: Pramipexole Di-HCl 1 MG TAB PO SCH (21:44)
[2019-02-14] MEDS: Melatonin 3 MG TAB PO SCH (21:44)
--- NOTE | 2019-02-14 22:25 | PDOC.PN ---
- Subjective Encounter Start Date: 02/14/19 Encounter Start Time: 13:15 Patient seen and examined for CP. Off Nitro drip. No SOB/Palpitations/Syncope. No overnight events - Objective Resuscitation Status - Order Detail: 02/12/19 18:40 Resuscitation Status Routine Resuscitation Status: FULL: Full Resuscitation Discussed with: Patient MAR Reviewed: Yes Vital Signs & Weight: Vital Signs (12 hours) Temp Pulse Resp Pulse Ox 02/14/19 20:00 98.3 F 96 02/14/19 18:51 97 02/14/19 17:00 98.2 F 02/14/19 13:31 88 19 96 02/14/19 12:00 98.6 F Weight Weight 183 lb 3 oz Most Recent Monitor Data Heart Rate from ECG 91 NIBP 114/86 NIBP BP-Mean 95 Respiration from ECG 19 SpO2 95 I&O: 02/13/19 02/14/19 02/15/19 06:59 06:59 06:59 Intake Total 1800 1581.3 1520.9 Output Total 750 1825 1850 Balance 1050 -243.7 -329.1 Result Diagrams: 02/14/19 04:39 02/14/19 04:39 EKG Reviewed by me: Yes (Tele SR) Phys Exam - Physical Examination Constitutional: NAD Respiratory: no wheezing, no rhonchi Cardiovascular: RRR, no rub Gastrointestinal: soft, non-tender, positive bowel sounds Musculoskeletal: no edema Dx/Plan - Plan DVT proph w/SCDs 1. CP/Elevated troponin/Unstable angina 2. DM2 3. CKD 3 4. HTN 5. Other issues per previous notes PLAN: Cont ASA/Nitrate Cont Xanax Cont other meds as below Review of Systems - Review of Systems Respiratory: negative: Cough, Dry, Shortness of Breath, Hemoptysis, SOB with Excertion, Pleuritic Pain, Sputum, Wheezing Gastrointestinal: negative: Nausea, Vomiting, Abdominal Pain, Diarrhea, Constipation, Melena, Hematochezia, Other - Medications/Allergies Allergies/Adverse Reactions: Allergies Allergy/AdvReac Type Severity Reaction Status Date / Time ziprasidone [From Geodon] Allergy Severe Verified 12/24/18 19:55 Penicillins Allergy Intermediate Hives Verified 12/24/18 19:55 doxycycline Allergy Hives Verified 12/24/18 19:55 haloperidol [From Haldol] Allergy Verified 12/24/18 19:55 levofloxacin [From Levaquin] Allergy Hives Verified 12/24/18 19:55 loratadine [From Claritin] Allergy Rash Verified 12/24/18 19:55 morphine Allergy Verified 12/24/18 19:55 penicillin G Allergy Verified 12/24/18 19:55 Medications: Current Medications Acetaminophen (Tylenol) 650 mg PO Q4H PRN PRN Reason: Headache/Fever/Mild Pain (1-3) Last Admin: 02/13/19 12:28 Dose: 650 mg Acetaminophen (Tylenol) 650 mg [place] Q4H PRN PRN Reason: Headache/Fever/Mild Pain (1-3) Acetaminophen/Codeine Phosphate (Tylenol #3) 1 tab PO Q4H PRN PRN Reason: Mild Pain (1-3) Last Admin: 02/13/19 17:09 Dose: 1 tab Acetaminophen/Codeine Phosphate (Tylenol #3) 2 tab PO Q4H PRN PRN Reason: Moderate Pain (4-6) Last Admin: 02/14/19 11:00 Dose: 2 tab Hydrocodone Bitart/Acetaminophen ([place] 5/325) 1 tab PO Q6H PRN PRN Reason: Moderate Pain (4-6) Last Admin: 02/14/19 22:07 Dose: 1 tab Albuterol/Ipratropium (Duoneb) 3 ml NEB Q4H PRN PRN Reason: SOB &/or Wheezing Last Admin: 02/13/19 07:10 Dose: 3 ml Albuterol/Ipratropium (Duoneb) 3 ml NEB [id number] [facility] Last Admin: 02/14/19 18:51 Dose: 3 ml Alprazolam (Xanax) 0.5 mg PO TID [facility] Last Admin: 02/14/19 21:44 Dose: 0.5 mg Amlodipine Besylate (Norvasc) 5 mg PO DAILY [facility] Last Admin: 02/14/19 08:17 Dose: 5 mg Azelastine HCl (Azelastine) 0 ml NS DAILY [facility] Colchicine (Colcrys) 0.6 mg PO BID [facility] Last Admin: 02/14/19 21:44 Dose: 0.6 mg Diphenhydramine HCl (Benadryl) 25 mg PO Q6H PRN PRN Reason: Itching & Insomnia Duloxetine HCl (Cymbalta) 30 mg PO DAILY [facility] Last Admin: 02/14/19 08:17 Dose: 30 mg Estradiol (Estrace) 1.25 mg PO DAILY [facility] Last Admin: 02/14/19 10:03 Dose: 1.25 mg Fluticasone Propionate (Flonase Nasal Bearden) 0 gm NASAL DAILY [facility] Sodium Chloride (Normal Saline 0.9%) 200 mls @ 0 mls/hr IV ONE PRN PRN Reason: SBP < 90 Stop: 02/15/19 20:11 Isosorbide Mononitrate (Imdur Er) 30 mg PO [facility] Ketorolac Tromethamine (Toradol) 30 mg IVP Q6HR [facility] Stop: 02/18/19 10:55 Last Admin: 02/14/19 18:17 Dose: 30 mg Melatonin (Melatonin) 3 mg PO HS [facility] Last Admin: 02/14/19 21:44 Dose: 3 mg Nitroglycerin (Nitrostat) 0.4 mg SL Q5MIN PRN PRN Reason: Chest Pain Last Admin: 02/14/19 14:18 Dose: 0.4 mg Ondansetron HCl (Zofran Odt) 4 mg PO Q6H PRN PRN Reason: Nausea/Vomiting Ondansetron HCl (Zofran) 4 mg IVP Q6H PRN PRN Reason: Nausea/Vomiting Pantoprazole Sodium (Protonix) 40 mg IVP DAILY [facility] Last Admin: 02/14/19 08:19 Dose: 40 mg Pramipexole Dihydrochloride (Mirapex) 1 mg PO QPM [facility] Last Admin: 02/14/19 21:44 Dose: 1 mg Prednisone (Prednisone) 20 mg PO QAM[facility] Stop: 02/18/19 08:01 Last Admin: 02/14/19 08:17 Dose: 20 mg Senna/Docusate Sodium (Senokot S) 2 tab PO BIDPRN PRN PRN Reason: Constipation Sodium Chloride (Normal Saline Pf) 10 ml FS PRN PRN PRN Reason: RECONSTITUTION Tizanidine HCl (Zanaflex) 4 mg PO HS [facility] Last Admin: 02/14/19 21:44 Dose: 4 mg
[2019-02-15] MEDS: Ketorolac Tromethamine 30 MG/ML VIAL IVP SCH ×3 (00:11→11:35)
[2019-02-15] MEDS: HYDROcodone/Acetaminophen 5/325 mg Tablet PO PRN ×3 (08:31→20:16)
[2019-02-15] MEDS: predniSONE 20 MG TAB PO SCH (08:32)
[2019-02-15] MEDS: DULoxetine 30 MG CAP PO SCH (08:33)
[2019-02-15] MEDS: Amlodipine 5 MG TAB PO SCH (08:33)
[2019-02-15] MEDS: ALPRAZolam 0.5 MG TAB PO SCH ×3 (08:33→20:15)
[2019-02-15] MEDS: Colchicine 0.6 MG TAB PO SCH ×2 (08:39→20:15)
--- NOTE | 2019-02-15 08:49 | PRG ---
DATE OF SERVICE: 02/15/2019 SERVICE: Pulmonary Medicine. INTERVAL HISTORY: The patient is complaining of a little bit of indigestion. She is requesting an acid pill. Otherwise, there has been no interval change to her condition. She continues to have a little bit of tightness in the chest, this is long-standing and has been present for years. Otherwise, she is coughing a little bit, but not bringing up any sputum. She did not have any major chest pain events overnight, and got a little bit better rest. PHYSICAL EXAMINATION: VITAL SIGNS: Afebrile, pulse 82, blood pressure 124/72, respirations 17, and saturation 98% on room air. GENERAL: The patient is awake and alert, in no apparent distress. LUNGS: Good air entry. Minimally prolonged expiratory phase with no wheezing today. No rhonchi or crackles are appreciated. HEART: Normal rate and regular. ABDOMEN: Soft, nontender, and nondistended. Bowel sounds are positive. MUSCULOSKELETAL: No cyanosis or clubbing. No pitting in the bilateral lower extremities. NEUROLOGIC: Grossly nonfocal. ASSESSMENT: 1. Vasospasm of the LAD? 2. Chest pain, intermittent. 3. Vocal cord dysfunction. 4. Asthma, possible. DISCUSSION AND PLAN: I will place the patient on a PPI. I will repeat hemoglobin tomorrow morning. Pulmonary/Critical Care will continue to follow along while the patient remains in the hospital. I will transition her out of the ICU to the telemetry unit. Job ID: [id number] MTDD
[2019-02-15] MEDS: Mag-Al 1200 mg/1200 mg/30 ML UDCUP PO PRN (10:35)
[2019-02-15] MEDS: Fluticasone Propionate Nasal Spray 16 gm Bottle NASAL SCH (10:42)
[2019-02-15] MEDS: Estradiol 1 MG TAB PO SCH (11:32)
[2019-02-15] MEDS: Azelastine 137 MCG/Spray 30 ML NS SCH (11:38)
--- NOTE | 2019-02-15 15:32 | PDOC.PN ---
- Subjective Encounter Start Date: 02/15/19 Encounter Start Time: 15:31 Subjective: Still complaining of right groin pain. -: Denied chest pain. No fever. - Objective Resuscitation Status - Order Detail: 02/12/19 18:40 Resuscitation Status Routine Resuscitation Status: FULL: Full Resuscitation Discussed with: Patient Vital Signs & Weight: Vital Signs (12 hours) Temp Pulse Resp BP BP Pulse Ox 02/15/19 14:04 95 02/15/19 14:02 80 12 02/15/19 11:27 79 18 128/68 95 02/15/19 11:20 95 02/15/19 08:33 74 121/80 02/15/19 08:00 98 F 95 02/15/19 07:32 82 17 98 02/15/19 04:00 98.4 F Weight Weight 183 lb 3 oz Most Recent Monitor Data Heart Rate from ECG 84 NIBP 126/73 NIBP BP-Mean 90 Respiration from ECG 19 SpO2 95 I&O: 02/14/19 02/15/19 02/16/19 06:59 06:59 06:59 Intake Total 1581.3 2240.9 440 Output Total 1825 2950 550 Balance -243.7 -709.1 -110 Result Diagrams: 02/14/19 04:39 02/14/19 04:39 Phys Exam - Physical Examination Constitutional: NAD HEENT: PERRLA, moist MMs Neck: no JVD Respiratory: no rales fair air entry bilaterally with transmitted sound Cardiovascular: RRR, no significant murmur Gastrointestinal: soft, no distention, positive bowel sounds Musculoskeletal: no edema Right groin ecchymosis extending to genital Neurological: non-focal, moves all 4 limbs Psychiatric: A&O x 3 Dx/Plan (1) Coronary artery spasm Code(s): I20.1 - ANGINA PECTORIS WITH DOCUMENTED SPASM Status: Acute (2) Anxiety and depression Code(s): F41.9 - ANXIETY DISORDER, UNSPECIFIED; F32.9 - MAJOR DEPRESSIVE DISORDER, SINGLE EPISODE, UNSPECIFIED Status: Chronic Comment: stable (3) COPD (chronic obstructive pulmonary disease) Status: Chronic Qualifiers: COPD type: unspecified COPD Qualified Code(s): J44.9 - Chronic obstructive pulmonary disease, unspecified (4) Fibromyalgia Status: Chronic (5) Restless leg syndrome Status: Chronic (6) Tobacco dependence Code(s): F17.200 - NICOTINE DEPENDENCE, UNSPECIFIED, UNCOMPLICATED Status: Chronic (7) Vocal cord dysfunction Code(s): J38.3 - OTHER DISEASES OF VOCAL CORDS Status: Chronic Comment: as above (8) Unstable angina Status: Acute (9) Traumatic hematoma of groin Code(s): S30.1XXA - CONTUSION OF ABDOMINAL WALL, INITIAL ENCOUNTER Status: Acute - Plan DC toradol. Patient has been on it for more than 2 days.Moreso not effectiv -: Start tramadol lidocaine patch. -: Continue other medication. -: Monitor renal function. -: Possible discharge tomorrow if cleaerd by cardiology * .
--- NOTE | 2019-02-15 17:27 | PDOC.CTH ---
Cardiology Progress Note - Subjective She continues to have chest pains on and off. She states Imdur helped. - Objective Vital Signs Temp Pulse Resp BP BP Pulse Ox 02/15/19 16:07 97.9 F 101 H 16 120/65 94 L 02/15/19 14:04 95 02/15/19 14:02 80 12 02/15/19 11:27 79 18 128/68 95 02/15/19 11:20 95 02/15/19 08:33 74 121/80 02/15/19 08:00 98 F 95 02/15/19 07:32 82 17 98 Weight 183 lb 3 oz 02/14/19 02/15/19 02/16/19 06:59 06:59 06:59 Intake Total 1581.3 2240.9 440 Output Total 1825 2950 550 Balance -243.7 -709.1 -110 - Physical Examination General/Neuro: alert & oriented x3, NAD Neck: no JVD present Lungs: CTA, unlabored respirations Heart: RRR Abdomen: NT/ND Extremities: other: (no edema.) - Telemetry Telemetry Rhythm: NSR - Labs Result Diagrams: 02/14/19 04:39 02/14/19 04:39 Troponin/CKMB CK-MB (CK-2) 5.9 ng/mL (0-6.6) 02/12/19 15:31 Troponin I 0.035 ng/mL (< 0.028) H 02/14/19 04:39 - Assessment/Plan 1. Chest pain 2. Mild cornoary artery disease. 3. Possible coronary spas, prinz metal angina PLAN: - Continue Long acting nitro. - Continue colchicine.
[2019-02-15] MEDS: Acetaminophen/Codeine 30-300mg Tablet PO PRN (18:54)
[2019-02-15] MEDS: tiZANidine HCl 4 MG TAB PO SCH (20:15)
[2019-02-15] MEDS: Melatonin 3 MG TAB PO SCH (20:15)
[2019-02-15] MEDS: Pramipexole Di-HCl 1 MG TAB PO SCH (20:15)
[2019-02-16] MEDS: traMADol HCl 50 MG TAB PO PRN ×2 (01:23→20:37)
[2019-02-16 05:28] LABS: #Basophils 0.1 thou/uL (0.0-0.2); #Eosinphils 0.6 thou/uL (0.0-0.7); #Lymphocytes 4.7 thou/uL (1.20-3.40); #Monocytes 1.2 thou/uL (0.11-0.59); #Neutrophils 5.6 thou/uL (1.40-6.50); %Basophils 0.9 % (0.0-1.0); %Eosinophils 4.9 % (0.0-10.0); %Lymphocytes 38.5 % (21.0-51.0); %Monocytes 9.7 % (0.0-10.0); Hemoglobin 11.5 g/dL (12.0-16.0); Mean Corpuscular Hemoglobin 28.9 pg (27.0-31.0); Mean Corpuscular Volume 90.1 fL (78.0-98.0); Mean Platelet Volume 7.7 fL (7.4-10.4); Platelet Count 274 thou/uL (130-400); RBC Distribution Width 13.7 % (11.5-14.5); White Blood Cell (WBC) Count 12.2 thou/uL (4.8-10.8)
[2019-02-16 05:44] LABS: Anion Gap 10 mmol/L (10-20); BUN (Urea Nitrogen) 19 mg/dL (7.0-18.7); Calc. Creatinine Clearance 117 mL/min (70-130); Calcium 8.9 mg/dL (7.8-10.44); Carbon Dioxide 31 mmol/L (22-29); Chloride 102 mmol/L (98-107); Estimated GFR-MDRD 81; Glucose 86 mg/dL (70-105); Potassium 4.2 mmol/L (3.5-5.1); Sodium 139 mmol/L (136-145)
[2019-02-16] MEDS: HYDROcodone/Acetaminophen 5/325 mg Tablet PO PRN ×2 (06:20→12:16)
[2019-02-16] MEDS: Mag-Al 1200 mg/1200 mg/30 ML UDCUP PO PRN ×2 (06:21→20:39)
--- NOTE | 2019-02-16 07:15 | PRG ---
DATE OF SERVICE: 02/13/2019 ADDENDUM: Ms. Rodriguez had a severe episode of chest pain earlier today. She was transferred to the intensive care unit. She was given intravenous nitrates and also Toradol. The pain has resolved. I think it may be some pericardial type pain. She continues to complain of severe right groin pain. PA compression ultrasound was interpreted as suboptimal that needs to be repeated with another machine. She does have some hematoma formation. The test will be repeated. She requests Tylenol No. 3 for pain. She says she takes that at home. Job ID: [id number]
[2019-02-16] MEDS: Amlodipine 5 MG TAB PO SCH (09:28)
[2019-02-16] MEDS: Estradiol 1 MG TAB PO SCH (09:29)
[2019-02-16] MEDS: Acetaminophen/Codeine 30-300mg Tablet PO PRN ×2 (09:30→18:53)
[2019-02-16] MEDS: DULoxetine 30 MG CAP PO SCH (09:31)
[2019-02-16] MEDS: ALPRAZolam 0.5 MG TAB PO SCH ×3 (09:31→20:35)
[2019-02-16] MEDS: predniSONE 20 MG TAB PO SCH (09:31)
[2019-02-16] MEDS: Fluticasone Propionate Nasal Spray 16 gm Bottle NASAL SCH (09:32)
[2019-02-16] MEDS: Lidocaine 5% Patch TD SCH (09:32)
--- NOTE | 2019-02-16 09:33 | PRG ---
DATE OF SERVICE: 02/16/2019 SUBJECTIVE: Ms. Rodriguez is actually in good spirits. She is complaining of pain in her cardiac catheterization sites, where she has a little bit of a hematoma. She is not having any further chest pain today. OBJECTIVE: VITAL SIGNS: On exam, temperature is 97.8, pulse 81, respirations 16, O2 sat 96% on room air, and blood pressure 131/69. HEENT: Pupils are reactive. Sclerae are icteric. Oropharynx is clear. NECK: No JVD. LUNGS: She has diffuse mild wheezing. CARDIAC: S1 and S2. Regular. ABDOMEN: Soft and nontender. EXTREMITIES: She has some bruising in her right groin. LABORATORY DATA: White blood cell count 12, hematocrit 36, and platelet count 274. Sodium 139, potassium 4.2, BUN 19, creatinine 0.7, and glucose 86. ASSESSMENT: 1. Chronic obstructive pulmonary disease - currently with mild flare. 2. Coronary vasospasms. 3. History of vocal cord dysfunction. 4. History of obstructive sleep apnea. 5. History of tobacco abuse. PLAN: 1. The patient is currently on a tapered dose of steroids. She will continue breathing treatments. 2. Increase activity as tolerated. Job ID: [id number]
[2019-02-16] MEDS: Colchicine 0.6 MG TAB PO SCH ×2 (09:35→20:35)
[2019-02-16] MEDS ORDERED: Aspirin 81 mg Enteric Coated Tablet PO SCH ×2 (09:40→10:30)
--- NOTE | 2019-02-16 10:00 | PRG ---
DATE OF SERVICE: 02/16/2019 SUBJECTIVE: Ms. Rodriguez does not report any chest pain today. She does report right groin pain. OBJECTIVE: VITAL SIGNS: Her blood pressure is 131/69, pulse 80, it is regular. LUNGS: Clear. CARDIAC: Normal S1 and S2. ABDOMEN: Soft, nontender. PELVIC: The right groin does have ecchymosis. ASSESSMENT: 1. Probable coronary spasm. 2. History of reactive airway disease. 3. History of smoking. 4. Right groin pain probably due to hematoma formation without any evidence of pseudoaneurysm. PLAN: 1. Encouraged to get up and around more. 2. She is on amlodipine and nitrates. 3. She is on colchicine now. In case she has any pericardial pain, will probably give her the colchicine just for another week in case there is any pericardial involvement, although it does not look like this is primarily pericarditis. Hopefully, home tomorrow. Job ID: [id number]
[2019-02-16] MEDS: Nitroglycerin 0.4 MG TAB (25 Tab Bottle) SL PRN ×3 (13:41→13:53)
[2019-02-16] MEDS ORDERED: Morphine 2 MG/ML SYRINGE SLOW IVP SCH (14:30)
[2019-02-16] MEDS: Azelastine 137 MCG/Spray 30 ML NS SCH (15:01)
--- NOTE | 2019-02-16 15:22 | PDOC.PN ---
- Subjective Encounter Start Date: 02/16/19 Encounter Start Time: 10:45 Subjective: no chest pain now, feels better -: is amb in hallway - Objective Resuscitation Status - Order Detail: 02/12/19 18:40 Resuscitation Status Routine Resuscitation Status: FULL: Full Resuscitation Discussed with: Patient POPEYE Reviewed: Yes Vital Signs & Weight: Vital Signs (12 hours) Temp Pulse Resp BP BP BP Pulse Ox 02/16/19 15:05 99.1 F 88 16 128/72 97 02/16/19 12:00 98 F 84 16 128/72 94 L 02/16/19 09:28 77 131/69 02/16/19 08:00 97.8 F 81 16 131/69 96 02/16/19 07:10 80 16 95 02/16/19 04:00 97.9 F 82 20 128/77 99 Weight Weight 183 lb 3 oz Most Recent Monitor Data Heart Rate from ECG 84 NIBP 126/73 NIBP BP-Mean 90 Respiration from ECG 19 SpO2 95 I&O: 02/15/19 02/16/19 02/17/19 06:59 06:59 06:59 Intake Total 2240.9 940 Output Total 2950 550 Balance -709.1 390 Result Diagrams: 02/16/19 05:11 02/16/19 05:11 Phys Exam - Physical Examination HEENT: PERRLA, moist MMs Neck: no JVD, supple Respiratory: no wheezing, no rales Cardiovascular: RRR, no significant murmur Gastrointestinal: soft, non-tender, positive bowel sounds Musculoskeletal: no edema, pulses present Neurological: non-focal, moves all 4 limbs Psychiatric: normal affect, A&O x 3 Dx/Plan (1) Coronary artery spasm Code(s): I20.1 - ANGINA PECTORIS WITH DOCUMENTED SPASM Status: Acute Comment : cath 02/12/2019 showed mild cad with no flow limiting lesion (2) LUISA (obstructive sleep apnea) Code(s): G47.33 - OBSTRUCTIVE SLEEP APNEA (ADULT) (PEDIATRIC) Status: Chronic (3) Anxiety and depression Code(s): F41.9 - ANXIETY DISORDER, UNSPECIFIED; F32.9 - MAJOR DEPRESSIVE DISORDER, SINGLE EPISODE, UNSPECIFIED Status: Chronic Comment: stable (4) COPD (chronic obstructive pulmonary disease) Status: Chronic Qualifiers: COPD type: unspecified COPD Qualified Code(s): J44.9 - Chronic obstructive pulmonary disease, unspecified (5) Fibromyalgia Status: Chronic (6) Restless leg syndrome Status: Chronic (7) Vocal cord dysfunction Code(s): J38.3 - OTHER DISEASES OF VOCAL CORDS Status: Chronic Comment: as above - Plan hemostable -: d/w and patient -: dc plan in am -: on colchicine, prednisone, nebs, lidocaine patch -: continue cymbalta, norvasc, imdur * . Review of Systems - Medications/Allergies Allergies/Adverse Reactions: Allergies Allergy/AdvReac Type Severity Reaction Status Date / Time ziprasidone [From Geodon] Allergy Severe Verified 12/24/18 19:55 Penicillins Allergy Intermediate Hives Verified 12/24/18 19:55 doxycycline Allergy Hives Verified 12/24/18 19:55 haloperidol [From Haldol] Allergy Verified 12/24/18 19:55 levofloxacin [From Levaquin] Allergy Hives Verified 12/24/18 19:55 loratadine [From Claritin] Allergy Rash Verified 12/24/18 19:55 penicillin G Allergy Verified 12/24/18 19:55 Medications: Current Medications Acetaminophen (Tylenol) 650 mg PO Q4H PRN PRN Reason: Headache/Fever/Mild Pain (1-3) Last Admin: 02/13/19 12:28 Dose: 650 mg Acetaminophen (Tylenol) 650 mg MS Q4H PRN PRN Reason: Headache/Fever/Mild Pain (1-3) Acetaminophen/Codeine Phosphate (Tylenol #3) 1 tab PO Q4H PRN PRN Reason: Mild Pain (1-3) Last Admin: 02/16/19 09:30 Dose: 1 tab Acetaminophen/Codeine Phosphate (Tylenol #3) 2 tab PO Q4H PRN PRN Reason: Moderate Pain (4-6) Last Admin: 02/15/19 18:54 Dose: 2 tab Hydrocodone Bitart/Acetaminophen ([place] 5/325) 1 tab PO Q6H PRN PRN Reason: Moderate Pain (4-6) Last Admin: 02/16/19 12:16 Dose: 1 tab Al Hydroxide/Mg Hydroxide (Maalox) 30 ml PO Q6H PRN PRN Reason: Indigestion Last Admin: 02/16/19 06:21 Dose: 30 ml Albuterol/Ipratropium (Duoneb) 3 ml NEB Q4H PRN PRN Reason: SOB &/or Wheezing Last Admin: 02/13/19 07:10 Dose: 3 ml Albuterol/Ipratropium (Duoneb) 3 ml NEB [id number] [facility] Last Admin: 02/16/19 14:42 Dose: Not Given Alprazolam (Xanax) 0.5 mg PO TID [facility] Last Admin: 02/16/19 14:20 Dose: 0.5 mg Amlodipine Besylate (Norvasc) 5 mg PO DAILY [facility] Last Admin: 02/16/19 09:28 Dose: 5 mg Aspirin (Ecotrin) 81 mg PO DAILY [facility] Azelastine HCl (Azelastine) 0 ml NS DAILY [facility] Last Admin: 02/16/19 15:01 Dose: Not Given Colchicine (Colcrys) 0.6 mg PO BID [facility] Last Admin: 02/16/19 09:35 Dose: 0.6 mg Diphenhydramine HCl (Benadryl) 25 mg PO Q6H PRN PRN Reason: Itching & Insomnia Duloxetine HCl (Cymbalta) 30 mg PO DAILY [facility] Last Admin: 02/16/19 09:31 Dose: 30 mg Estradiol (Estrace) 1.25 mg PO DAILY [facility] Last Admin: 02/16/19 09:29 Dose: 1.25 mg Fluticasone Propionate (Flonase Nasal [place]) 0 gm NASAL DAILY [facility] Last Admin: 02/16/19 09:32 Dose: 2 spr Isosorbide Mononitrate (Imdur Er) 30 mg PO QAM [facility] Last Admin: 02/16/19 09:29 Dose: 30 mg Lidocaine (Lidoderm 5% Patch) 1 patch TD DAILY [facility] Last Admin: 02/16/19 09:32 Dose: 1 patch Melatonin (Melatonin) 3 mg PO HS [facility] Last Admin: 02/15/19 20:15 Dose: 3 mg Miscellaneous Medication (Lidocaine Patch Removal) 1 each TOP 2100 [facility] Morphine Sulfate (Morphine) 2 mg SLOW IVP NOW [facility] Stop: 02/16/19 16:00 Last Admin: 02/16/19 15:02 Dose: 2 mg Nitroglycerin (Nitrostat) 0.4 mg SL Q5MIN PRN PRN Reason: Chest Pain Last Admin: 02/16/19 13:53 Dose: 0.4 mg Ondansetron HCl (Zofran Odt) 4 mg PO Q6H PRN PRN Reason: Nausea/Vomiting Ondansetron HCl (Zofran) 4 mg IVP Q6H PRN PRN Reason: Nausea/Vomiting Pantoprazole Sodium (Protonix) 40 mg PO DAILY [facility] Last Admin: 02/16/19 09:31 Dose: 40 mg Pramipexole Dihydrochloride (Mirapex) 1 mg PO QPM [facility] Last Admin: 02/15/19 20:15 Dose: 1 mg Prednisone (Prednisone) 20 mg PO QAM-WM [facility] Stop: 02/18/19 08:01 Last Admin: 02/16/19 09:31 Dose: 20 mg Senna/Docusate Sodium (Senokot S) 2 tab PO BIDPRN PRN PRN Reason: Constipation Sodium Chloride (Flush - Normal Saline) 10 ml IVF Q12HR [facility] Last Admin: 02/16/19 09:32 Dose: 10 ml Sodium Chloride (Flush - Normal Saline) 10 ml IVF PRN PRN PRN Reason: Saline Flush Tizanidine HCl (Zanaflex) 4 mg PO HS [facility] Last Admin: 02/15/19 20:15 Dose: 4 mg Tramadol HCl (Ultram) 50 mg PO Q4H PRN PRN Reason: Mild-Moderate Pain (1-5) Last Admin: 02/16/19 01:23 Dose: 50 mg
--- NOTE | 2019-02-16 17:51 | EKG ---
Test Reason : Blood Pressure : / mmHG Vent. Rate : 082 BPM Atrial Rate : 082 BPM P-R Int : 150 ms QRS Dur : 090 ms QT Int : 408 ms P-R-T Axes : 059 066 178 degrees QTc Int : 476 ms Normal sinus rhythm Prolonged QT Abnormal ECG When compared with ECG of 12-FEB-2019 17:41, (Unconfirmed) No significant change was found Confirmed by KELLEY GRIMLADO (2) on 02/16/2019 5:51:21 PM Referred By: MAGDI Confirmed By:KELLEY GRIMALDO
--- NOTE | 2019-02-16 17:52 | EKG ---
Test Reason : C/O CHEST PAIN Blood Pressure : / mmHG Vent. Rate : 091 BPM Atrial Rate : 091 BPM P-R Int : 148 ms QRS Dur : 086 ms QT Int : 384 ms P-R-T Axes : 062 072 165 degrees QTc Int : 472 ms Normal sinus rhythm Marked T wave abnormality, consider anterolateral ischemia Prolonged QT Abnormal ECG When compared with ECG of 13-FEB-2019 08:58, (Unconfirmed) No significant change was found Confirmed by KELLEY GRIMALDO (2) on 02/16/2019 5:52:03 PM Referred By: GENEVIEVE Confirmed By:KELLEY GRIMALDO
--- NOTE | 2019-02-16 17:53 | EKG ---
Test Reason : AFTER CODE GREEN Blood Pressure : / mmHG Vent. Rate : 086 BPM Atrial Rate : 086 BPM P-R Int : 154 ms QRS Dur : 088 ms QT Int : 406 ms P-R-T Axes : 066 075 196 degrees QTc Int : 485 ms Normal sinus rhythm Prolonged QT Abnormal ECG When compared with ECG of 13-FEB-2019 10:15, (Unconfirmed) No significant change was found Confirmed by KELLEY GRIMALDO (2) on 02/16/2019 5:53:11 PM Referred By: MAGDI Confirmed By:KELLEY GRIMALDO
[2019-02-16] MEDS: tiZANidine HCl 4 MG TAB PO SCH (20:35)
[2019-02-16] MEDS: Melatonin 3 MG TAB PO SCH (20:35)
[2019-02-16] MEDS: Pramipexole Di-HCl 1 MG TAB PO SCH (20:35)
[2019-02-16] MEDS ORDERED: Lidocaine Patch Removal 1 EACH TOP SCH (21:00)
[2019-02-17] MEDS: HYDROcodone/Acetaminophen 5/325 mg Tablet PO PRN ×3 (00:27→14:11)
[2019-02-17 06:43] LABS: #Basophils 0.1 thou/uL (0.0-0.2); #Eosinphils 0.4 thou/uL (0.0-0.7); #Lymphocytes 4.5 thou/uL (1.20-3.40); #Monocytes 1.2 thou/uL (0.11-0.59); #Neutrophils 7.2 thou/uL (1.40-6.50); %Basophils 0.9 % (0.0-1.0); %Eosinophils 3.3 % (0.0-10.0); %Lymphocytes 33.4 % (21.0-51.0); %Monocytes 8.9 % (0.0-10.0); %Neutrophils 53.5 % (42.0-75.0); Hemoglobin 11.8 g/dL (12.0-16.0); Mean Corpuscular Hemoglobin 28.7 pg (27.0-31.0); Mean Corpuscular Volume 89.8 fL (78.0-98.0); Mean Platelet Volume 7.8 fL (7.4-10.4); Platelet Count 280 thou/uL (130-400); RBC Distribution Width 13.6 % (11.5-14.5); Red Blood Cell (RBC) Count 4.12 mill/uL (4.20-5.40); White Blood Cell (WBC) Count 13.4 thou/uL (4.8-10.8)
[2019-02-17 07:08] LABS: Anion Gap 9 mmol/L (10-20); BUN (Urea Nitrogen) 20 mg/dL (7.0-18.7); Calc. Creatinine Clearance 126 mL/min (70-130); Calcium 9.1 mg/dL (7.8-10.44); Carbon Dioxide 35 mmol/L (22-29); Chloride 100 mmol/L (98-107); Estimated GFR-MDRD 87; Glucose 87 mg/dL (70-105); Potassium 4.1 mmol/L (3.5-5.1); Sodium 140 mmol/L (136-145)
[2019-02-17] MEDS ORDERED: Aspirin 81 mg Enteric Coated Tablet PO SCH (09:00)
--- NOTE | 2019-02-17 09:45 | PRG ---
DATE OF SERVICE: 02/17/2019 SUBJECTIVE: The patient is doing well today. She is having occasional atypical chest pain. OBJECTIVE: VITAL SIGNS: Temperature 97.2, pulse 72, respirations 16, O2 saturation 96% on room air, and blood pressure 126/59. HEENT: Unremarkable. NECK: No JVD. LUNGS: Few expiratory wheezes. CARDIAC: S1, S2 regular. ABDOMEN: Soft. EXTREMITIES: No edema. ASSESSMENT: 1. Chronic obstructive pulmonary disease. 2. Coronary vasospasms. 3. Non-Q-wave myocardial infarction. 4. History of vocal cord dysfunction. PLAN: 1. Probably able to discontinue steroids after tomorrow. 2. Stable to go home from a pulmonary standpoint. Job ID: [id number]
[2019-02-17] MEDS: Colchicine 0.6 MG TAB PO SCH ×2 (10:16→10:21)
[2019-02-17] MEDS: predniSONE 20 MG TAB PO SCH (10:16)
[2019-02-17] MEDS: DULoxetine 30 MG CAP PO SCH (10:17)
[2019-02-17] MEDS: Amlodipine 5 MG TAB PO SCH (10:17)
[2019-02-17] MEDS: ALPRAZolam 0.5 MG TAB PO SCH (10:17)
[2019-02-17] MEDS: Estradiol 1 MG TAB PO SCH (10:18)
[2019-02-17] MEDS: Azelastine 137 MCG/Spray 30 ML NS SCH (10:20)
[2019-02-17] MEDS: Fluticasone Propionate Nasal Spray 16 gm Bottle NASAL SCH (10:20)
[2019-02-17] MEDS: Lidocaine 5% Patch TD SCH (10:21)
[2019-02-17] MEDS: Acetaminophen/Codeine 30-300mg Tablet PO PRN (10:28)
[2019-02-17 11:50] VITALS: BP 130/70; TEMP 97.7
--- NOTE | 2019-02-17 13:31 | PRG ---
DATE OF SERVICE: 02/17/2019 SUBJECTIVE: Ms. Michael is doing better today. She still has a little bit of chest pain with a deep breath, but no anginal type chest pain. OBJECTIVE: VITAL SIGNS: Her blood pressure 130/70, pulse is 70. I reviewed the hospital course. The patient did undergo cardiac catheterization by Dr. Coon with the only abnormality was the distal LAD looks smaller with that was probably spasm. The LAD fills somewhat slowly, but there did not appear to be any obstructive atherosclerosis. The patient did have some chest pain off and on during this hospitalization of unclear etiology. She also had some groin pain associated with a hematoma, but there was no pseudoaneurysm. The patient is released home on aspirin, amlodipine 5 mg a day and nitroglycerin as needed as well as nitrates. Prognosis long-term guarded. I told her it is extremely important that she not smoke. No other intervention is indicated at this point. The patient's cholesterol during this admission was not elevated with an LDL of 85 on 02/13. Previous cholesterols have been in the same range. It is always possible that there was some distal atherosclerosis in the very distal part of her LAD, but this should also be treated medically. No definitive plaque was seen, however. Job ID: [id number]
--- NOTE | 2019-02-17 14:37 | PDOC.PN ---
- Subjective Encounter Start Date: 02/17/19 Encounter Start Time: 08:15 Subjective: no new complaints -: is amb in room and hallway - Objective Resuscitation Status - Order Detail: 02/12/19 18:40 Resuscitation Status Routine Resuscitation Status: FULL: Full Resuscitation Discussed with: Marcela NYE Reviewed: Yes Vital Signs & Weight: Vital Signs (12 hours) Temp Pulse Resp BP BP Pulse Ox 02/17/19 11:48 97.7 F 71 18 130/70 96 02/17/19 10:17 72 126/59 L 02/17/19 08:00 97.2 F L 72 16 126/59 L 97 02/17/19 07:16 70 16 93 L 02/17/19 04:00 98.2 F 70 19 125/67 98 Weight Weight 183 lb 3 oz Most Recent Monitor Data Heart Rate from ECG 84 NIBP 126/73 NIBP BP-Mean 90 Respiration from ECG 19 SpO2 95 I&O: 02/16/19 02/17/19 02/18/19 06:59 06:59 06:59 Intake Total 940 350 Output Total 550 Balance 390 350 Result Diagrams: 02/17/19 05:59 02/17/19 05:59 Phys Exam - Physical Examination HEENT: PERRLA, moist MMs Neck: no JVD, supple Respiratory: no wheezing, no rales Cardiovascular: RRR, no significant murmur Gastrointestinal: soft, non-tender, positive bowel sounds Musculoskeletal: no edema, pulses present Neurological: non-focal, moves all 4 limbs Psychiatric: normal affect, A&O x 3 Dx/Plan (1) Coronary artery spasm Code(s): I20.1 - ANGINA PECTORIS WITH DOCUMENTED SPASM Status: Acute Comment : cath 02/12/2019 showed mild cad with no flow limiting lesion (2) LUISA (obstructive sleep apnea) Code(s): G47.33 - OBSTRUCTIVE SLEEP APNEA (ADULT) (PEDIATRIC) Status: Chronic (3) Anxiety and depression Code(s): F41.9 - ANXIETY DISORDER, UNSPECIFIED; F32.9 - MAJOR DEPRESSIVE DISORDER, SINGLE EPISODE, UNSPECIFIED Status: Chronic Comment: stable (4) COPD (chronic obstructive pulmonary disease) Status: Chronic Qualifiers: COPD type: unspecified COPD Qualified Code(s): J44.9 - Chronic obstructive pulmonary disease, unspecified (5) Fibromyalgia Status: Chronic (6) Restless leg syndrome Status: Chronic (7) Vocal cord dysfunction Code(s): J38.3 - OTHER DISEASES OF VOCAL CORDS Status: Chronic Comment: as above - Plan hemostable -: dc pt home -: counselled reg tob cessation * . Review of Systems - Medications/Allergies Allergies/Adverse Reactions: Allergies Allergy/AdvReac Type Severity Reaction Status Date / Time ziprasidone [From Geodon] Allergy Severe Verified 12/24/18 19:55 Penicillins Allergy Intermediate Hives Verified 12/24/18 19:55 doxycycline Allergy Hives Verified 12/24/18 19:55 haloperidol [From Haldol] Allergy Verified 12/24/18 19:55 levofloxacin [From Levaquin] Allergy Hives Verified 12/24/18 19:55 loratadine [From Claritin] Allergy Rash Verified 12/24/18 19:55 penicillin G Allergy Verified 12/24/18 19:55
--- NOTE | 2019-02-17 21:01 | EKG ---
Test Reason : Blood Pressure : / mmHG Vent. Rate : 096 BPM Atrial Rate : 096 BPM P-R Int : 138 ms QRS Dur : 072 ms QT Int : 356 ms P-R-T Axes : 063 057 136 degrees QTc Int : 449 ms Normal sinus rhythm Marked T wave abnormality, consider anterolateral ischemia Abnormal ECG When compared with ECG of 13-FEB-2019 11:03, (Unconfirmed) Nonspecific T wave abnormality has replaced inverted T waves in Inferior leads Confirmed by ADOLFO RASMUSSEN, SWilfrido (4) on 02/17/2019 9:00:32 PM Referred By: BRITTANY Confirmed By:DR. Shawn MATA MD
--- NOTE | 2019-02-17 21:13 | EKG ---
Test Reason : Blood Pressure : / mmHG Vent. Rate : 095 BPM Atrial Rate : 095 BPM P-R Int : 138 ms QRS Dur : 076 ms QT Int : 374 ms P-R-T Axes : 056 073 161 degrees QTc Int : 469 ms Normal sinus rhythm T wave abnormality, consider inferior ischemia T wave abnormality, consider anterolateral ischemia Prolonged QT Abnormal ECG When compared with ECG of 14-FEB-2019 14:41, (Unconfirmed) No significant change was found Confirmed by ADOLFO RASMUSSEN, . SWilfrido (4) on 02/17/2019 9:13:40 PM Referred By: MAGDI Confirmed By:DR. Shawn MATA MD
--- NOTE | 2019-02-17 21:21 | EKG ---
Test Reason : Blood Pressure : / mmHG Vent. Rate : 073 BPM Atrial Rate : 073 BPM P-R Int : 174 ms QRS Dur : 084 ms QT Int : 422 ms P-R-T Axes : 069 072 169 degrees QTc Int : 464 ms Normal sinus rhythm Marked T wave abnormality, consider anterolateral ischemia Prolonged QT Abnormal ECG When compared with ECG of 16-FEB-2019 13:49, (Unconfirmed) No significant change was found Confirmed by ADOLFO RASMUSSEN, . SWilfrido (4) on 02/17/2019 9:21:31 PM Referred By: MAGDI Confirmed By:DR. Shawn MATA MD
--- NOTE | 2019-02-18 13:47 | DIS ---
DATE OF ADMISSION: 02/12/2019 DATE OF DISCHARGE: 02/17/2019 DISCHARGE DISPOSITION: Home. PRIMARY DISCHARGE DIAGNOSES: 1. Coronary artery vasospasm, resolved. 2. Non ST-elevation myocardial infarction type 2. SECONDARY DISCHARGE DIAGNOSES: Chronic obstructive pulmonary disease, obstructive sleep apnea, anxiety, depression, fibromyalgia, restless legs syndrome, vocal cord dysfunction. PROCEDURES DONE DURING HOSPITALIZATION: Chest x-ray on the day of admission showed no acute cardiopulmonary abnormalities. Coronary angiogram done showed mild coronary artery disease, possible LAD spasm, mildly impaired ventricular function was seen. This was done by Dr. Coon on 02/12/2019. H and H are 11 and 37, platelet count 280. White count of 13 on the day of discharge. BUN and creatinine are 20 and 0.7. Troponin I was indeterminate, peaking up to 0.09. Total cholesterol 192, triglyceride 65, LDL 85, HDL 94. INPATIENT CONSULT: 1. Wilfrid Green MD, for Cardiology. 2. Per Grey MD, for Pulmonology. DISCHARGE MEDICATIONS: 1. Cymbalta 60 mg p.o. daily. 2. Colace 100 mg p.o. daily. 3. Flexeril 10 mg p.o. at bedtime p.r.n. for spasms. 4. Estradiol 2 mg p.o. daily. 5. DuoNeb q.i.d. p.r.n. 6. Melatonin 3 mg p.o. at bedtime. 7. Pramipexole 2 mg p.o. q.p.m. 8. Tizanidine 4 mg p.o. at bedtime. 9. Trazodone 50 mg p.o. daily. 10. Zantac 150 mg p.o. daily. 11. Norvasc 5 mg p.o. daily. 12. Aspirin 81 mg p.o. daily. 13. Imdur 30 mg p.o. daily. 14. Lidocaine 5% transdermal patch daily for another 10 days. ALLERGIES: ALLERGIC TO GEODON, PENICILLIN, DOXYCYCLINE, HALDOL, LEVAQUIN, LORATADINE, AND PENICILLIN. DISCHARGE PLAN: The patient is to follow up with primary care physician in 1 week. BRIEF COURSE DURING HOSPITALIZATION: The patient initially came to ER with complaints of increasing chest pains, which were coming on frequently. She had indeterminate troponin and had consultation with Dr. Coon and Peter for Cardiology. The patient had coronary angiogram done, which showed coronary vasospasm likely in the LAD with very mild coronary artery disease and no flow-limiting disease as such. She was closely monitored on telemetry. The patient did not have any arrhythmias on monitoring. Her shortness of breath and chest pain slowly resolved. Her medications were optimized. The patient was on colchicine and was intolerant to it due to abdominal discomfort. Her medications have been optimized prior to discharge. She was also counseled to come off multiple psychotropic medications and pain medications that she is on via her primary care physician. The patient was followed by Dr. Grey for pulmonology, Dr. Green for cardiology during her stay here. Prior to discharge, she is ambulating. The patient has ecchymosis on the right groin area, where she had angiogram done. There is no hematoma or pseudoaneurysm at the location and ultrasound soft tissue Doppler was done for the same as well during her stay here. Please see a [id number] documentation for the day of discharge on [employer]. Job ID: [id number] [facility]
== END 2019-02-17 14:15 | disposition home or self-care (01) | DRG 281 ==
LOC: ERS 15:07 → 2NO 20:22 → CCU 02-13 10:56 → 2NO 02-15 11:25
PROVIDERS: ADMIT Emergency Medicine; ATTEND Emergency Medicine
PROC: 4A023N7 Measurement of Cardiac Sampling and Pressure, Left Heart, Percutaneous Approach (ICD-10-PCS; principal; 2019-02-12)
PROC: B2151ZZ Fluoroscopy of Left Heart using Low Osmolar Contrast (ICD-10-PCS; 2019-02-12)
PROC: B2111ZZ Fluoroscopy of Multiple Coronary Arteries using Low Osmolar Contrast (ICD-10-PCS; 2019-02-12)
DX: I25.111 Atherosclerotic heart disease of native coronary artery with angina pectoris with documented spasm (principal); I21.A1 Myocardial infarction type 2; J44.1 Chronic obstructive pulmonary disease with (acute) exacerbation; J38.3 Other diseases of vocal cords; M79.7 Fibromyalgia; F41.9 Anxiety disorder, unspecified; G25.81 Restless legs syndrome; G47.33 Obstructive sleep apnea (adult) (pediatric); N94.89 Other specified conditions associated with female genital organs and menstrual cycle; F17.290 Nicotine dependence, other tobacco product, uncomplicated; I12.9 Hypertensive chronic kidney disease with stage 1 through stage 4 chronic kidney disease, or unspecified chronic kidney disease; E11.22 Type 2 diabetes mellitus with diabetic chronic kidney disease; N18.3 Chronic kidney disease, stage 3 (moderate); Z98.1 Arthrodesis status; Z90.710 Acquired absence of both cervix and uterus; Z90.49 Acquired absence of other specified parts of digestive tract; Z88.0 Allergy status to penicillin; Z88.1 Allergy status to other antibiotic agents; Z88.6 Allergy status to analgesic agent; Z88.8 Allergy status to other drugs, medicaments and biological substances; Z79.818 Long term (current) use of other agents affecting estrogen receptors and estrogen levels; Z79.899 Other long term (current) drug therapy; Z79.82 Long term (current) use of aspirin; S30.0XXA Contusion of lower back and pelvis, initial encounter; F32.9 Major depressive disorder, single episode, unspecified
CPT/HCPCS: 36415; 36416; 71045; 76936; 80048; 80053; 80061; 82550; 82553; 83735; 84484; 85025; 85347; 85610; 85652; 85730; 93005; 93010; 93458; 94640; 94760; 96365; 96375; 96376; 99152; 99406; C1769; C9113; J1644; J1885; J2250; J2270; J2310; J2930; J3010; J7620; Q9967

== ENCOUNTER 2019-02-20 14:49 | Emergency (ER) | payer BC ==
[2019-02-20] MEDS ORDERED: ISOVUE-370 76%-LOCM 1 ML ONE (15:11)
[2019-02-20] MEDS ORDERED: Morphine 4 MG/ML VIAL ONE ×2 (15:57→17:49)
[2019-02-20] MEDS ORDERED: Metoclopramide HCl 10 MG/2 ML VIAL ONE (15:58)
--- NOTE | 2019-02-20 16:20 | RAD ---
FExam: Chest one view HISTORY:Chest pain. Recent cardiac catheterization. Comparison: 02/12/2019 FINDINGS: Cardiac silhouette: Normal Pulmonary vessels: Normal Costophrenic angles: Clear LUNGS: No masses or consolidation. Pneumothorax: None Osseous abnormalities: No abnormality. Redemonstration of a cervical fusion plate. IMPRESSION: No acute cardiopulmonary process.
[2019-02-20 16:23] LABS: #Basophils 0.2 thou/uL (0.0-0.2); #Eosinphils 0.9 thou/uL (0.0-0.7); #Lymphocytes 5.1 thou/uL (1.20-3.40); #Monocytes 1.4 thou/uL (0.11-0.59); #Neutrophils 8.8 thou/uL (1.40-6.50); %Basophils 1.1 % (0.0-1.0); %Eosinophils 5.4 % (0.0-10.0); %Lymphocytes 30.9 % (21.0-51.0); %Monocytes 8.8 % (0.0-10.0); %Neutrophils 53.9 % (42.0-75.0); Hemoglobin 13.2 g/dL (12.0-16.0); Mean Corpuscular HGB CONC 32.1 g/dL (32.0-36.0); Mean Corpuscular Hemoglobin 28.2 pg (27.0-31.0); Mean Corpuscular Volume 87.8 fL (78.0-98.0); Mean Platelet Volume 7.6 fL (7.4-10.4); Platelet Count 319 thou/uL (130-400); RBC Distribution Width 13.3 % (11.5-14.5); Red Blood Cell (RBC) Count 4.68 mill/uL (4.20-5.40); White Blood Cell (WBC) Count 16.3 thou/uL (4.8-10.8)
[2019-02-20 16:38] LABS: ALT (SGPT) 26 U/L (8-55); AST (SGOT) 23 U/L (5-34); Albumin 4.2 g/dL (3.5-5.0); Alkaline Phosphatase 62 U/L (40-150); Anion Gap 11 mmol/L (10-20); BUN (Urea Nitrogen) 17 mg/dL (7.0-18.7); Bilirubin, Total 0.4 mg/dL (0.2-1.2); Calc. Creatinine Clearance 0 mL/min (70-130); Calcium 9.5 mg/dL (7.8-10.44); Carbon Dioxide 26 mmol/L (22-29); Chloride 105 mmol/L (98-107); Estimated GFR-MDRD 82; Globulin 3.2 g/dL (2.4-3.5); Glucose 89 mg/dL (70-105); Protein, Total 7.4 g/dL (6.0-8.3); Sodium 138 mmol/L (136-145)
--- NOTE | 2019-02-20 16:44 | ULT ---
FUltrasound Doppler duplex venous right lower extremity: 02/11/2019 HISTORY: Right lower extremity pain in the 48-year-old female. TECHNIQUE: Grayscale, color-flow, and spectral analysis, of major veins of right lower extremity. FINDINGS: There is demonstration of blood flow with normal compressibility, of the bilateral common femoral, pr ofunda femoral, greater saphenous, femoral, popliteal, and posterior tibial, veins. IMPRESSION: Negative. No deep venous thrombosis of right lower extremity.
[2019-02-20 17:02] LABS: CKMB 4.3 ng/mL (0-6.6)
[2019-02-20] MEDS ORDERED: Nitroglycerin 2% Ointment 1 INCH/1 GM Packet ONE (17:35)
--- NOTE | 2019-02-20 18:40 | CT ---
CTA THORAX WITH CONTRAST CTA ABDOMEN WITH CONTRAST: 02/20/19 (Computed Tomographic Angiography, chest(noncoronary) with contrast material, and image postprocessin g) (Computed Tomographic Angiography, abdomen with contrast material, and image postprocessing) HISTORY: 48-year-old female with chest pain. COMPARISON: Aortic dissection protocol CTA of 08/02/15. TECHNIQUE: IV injection of iodinated contrast: 100 mL Isovue 370. Coronal and sagittal 3D MIP reconstructions. Arterial phase bolus chasing technique. Scan acquisition from top of top of aortic arch to iliac crests. FINDINGS: There are mild patchy focal ground glass infiltrates heterogeneously scattered in the bilateral upper lobes. This was also the case on the 08/02/15 CTA, but it is currently improved compared to that 2015 study. These have also improved compared to a CT of the chest of 02/03/19. There is no aortic dissect ion, aneurysm, or significant atherosclerotic plaque. No pleural effusion or pneumothorax. No evidenc e of pneumoperitoneum. No evidence of small bowel dilation. Within the limitations of a noncontrast s can, no obvious pathology identified involving pancreas, adrenals, and spleen. Possible fatty liver. No hydronephrosis. No mediastinal or hilar lymphadenopathy. No cardiomegaly or pericardial effusion. Left ventricular myocardium appears thickened, but it is uncertain whether this is due to timing of t he scan or represents actual pathology. This is an apparently new finding compared to the previous st udy. There is not enough IV contrast material in the pulmonary arteries to evaluate for pulmonary thr omboembolism. IMPRESSION: 1. Multifocal mild bilateral upper lobe ground glass infiltrates. These are recurrent. They are less severe than on 02/03/19. Etiology is uncertain, but one possibility is infection with atypical or ganism. Another possibility is atypical mild pulmonary interstitial edema. 2. Normal aorta. 3. Questionable hepatic steatosis. 4. Questionable hypertrophic cardiomyopathy. Recommend correlation with echocardiogram. raina[] POS: GRACIELA
[2019-02-20 19:08] LABS: Bilirubin Negative (Negative); Blood, Urine Trace (Negative); Clarity CLEAR (Clear); Glucose, Urine (Dipstick) Negative (Negative); Leukocyte Negative (Negative); Nitrite Negative (Negative); Protein, Urine (Dipstick) Negative (Neg-Trace); Urobilinogen 0.2 mg/dL (0.2-1.0)
[2019-02-20 19:11] LABS: Bacteria/HPF None Seen HPF (None Seen); Hyaline Casts/LPF 4-6 HYALINE CAST LPF (0-3 Hyaline); Pathc Cast-AUWi Flag 0.68 (0-2.49); Squamous Epithelial 0-3 HPF (0-3); WBC/HPF 0-3 HPF (0-3)
[2019-02-20 19:12] LABS: Specific Gravity, Urine 1.048 (1.002-1.036)
[2019-02-20 19:33] LABS: Troponin I 0.075 ng/mL (< 0.028)
[2019-02-20] MEDS ORDERED: Acetaminophen/Codeine 30-300mg Tablet ONE (21:06)
== END 2019-02-20 21:12 | disposition home or self-care (01) ==
LOC: ERS 14:49
DX: R07.2 Precordial pain (principal); M79.81 Nontraumatic hematoma of soft tissue; J44.9 Chronic obstructive pulmonary disease, unspecified; F41.9 Anxiety disorder, unspecified; Z87.891 Personal history of nicotine dependence; Z79.899 Other long term (current) drug therapy
CPT/HCPCS: 36415; 71045; 71275; 80053; 81003; 81015; 82553; 83605; 83880; 84484; 85025; 87040; 87086; 93005; 96374; 96376; J2270; J2765; Q9966

== ENCOUNTER 2019-02-21 18:59 | Observation (INO) | payer BC ==
[~2019-02-21 18:59] MED LIST changes: +ISOVUE-370 76%-LOCM 1 ML ONE; -Iopamidol 370 76% 100 ML VIAL ONE; -Iopamidol 370 76% 50 ML VIAL FS ONE
--- NOTE | 2019-02-21 19:14 | CT ---
FCT Brain WO Con: 02/21/2019 12:00 AM CLINICAL HISTORY: Stroke with left-sided deficit and a aphasia. COMPARISON: None. FINDINGS: Hemorrhage: None. Ventricular system: Normal in size and morphology for the patient's age. Cerebral parenchyma: Normal Midline shift: None. Mass: No mass effect. Calvarium: Normal. Visualized Paranasal sinuses: Scattered paranasal sinus mucosal thickening. IMPRESSION: No acute intracranial abnormalities. Notification placed at the 1909 hours via telephone.
[2019-02-21 19:28] LABS: #Basophils 0.2 thou/uL (0.0-0.2); #Lymphocytes 4.4 thou/uL (1.20-3.40); #Monocytes 1.5 thou/uL (0.11-0.59); #Neutrophils 7.7 thou/uL (1.40-6.50); %Basophils 1.2 % (0.0-1.0); %Eosinophils 6.9 % (0.0-10.0); %Lymphocytes 29.4 % (21.0-51.0); %Monocytes 10.4 % (0.0-10.0); %Neutrophils 52.2 % (42.0-75.0); Hemoglobin 12.9 g/dL (12.0-16.0); Mean Corpuscular HGB CONC 31.7 g/dL (32.0-36.0); Mean Corpuscular Hemoglobin 28.4 pg (27.0-31.0); Mean Corpuscular Volume 89.7 fL (78.0-98.0); Mean Platelet Volume 7.5 fL (7.4-10.4); Platelet Count 288 thou/uL (130-400); RBC Distribution Width 13.5 % (11.5-14.5); Red Blood Cell (RBC) Count 4.55 mill/uL (4.20-5.40); White Blood Cell (WBC) Count 14.8 thou/uL (4.8-10.8)
--- NOTE | 2019-02-21 19:33 | CT ---
FCTA of the head with and without IV contrast and 3-D reformatted imaging. CTA of the neck with IV contrast and 3-D reformatted imaging 3 D Volume Rendering: DATE: 02/21/2019 12:00 AM HISTORY: Weakness, aphasia COMPARISON: None FINDINGS: Right: CCA:No significant stenosis. ICA:No significant stenosis. MCA:No significant stenosis. ZHOU:No significant stenosis. SENIOR SOFTWARE TEST ENGINEER:No significant stenosis. LEFT: CCA:No significant stenosis. ICA:No significant stenosis. MCA:No significant stenosis. ZHOU:No significant stenosis. SENIOR SOFTWARE TEST ENGINEER:No significant stenosis. Vertebrobasilar System: Left Vertebral:No significant stenosis. Right Vertebral:No significant stenosis. Basilar:No significant stenosis. IMPRESSION: No hemodynamically significant stenosis, occlusion or aneurysmal dilation. If neurologic deficits persist, recommend brain MRI to evaluate for early areas of ischemia that may be occult by CT imaging. Results telephoned at 1925 hours.
[2019-02-21 19:34] LABS: PTT 28.8 SEC (22.9-36.1); Prothrombin Time 12.3 SEC (12.0-14.7)
[2019-02-21 19:35] LABS: INR-International Normal Ratio 0.9
[2019-02-21 19:40] LABS: ALT (SGPT) 26 U/L (8-55); AST (SGOT) 23 U/L (5-34); Albumin 4.1 g/dL (3.5-5.0); Alkaline Phosphatase 62 U/L (40-150); Anion Gap 14 mmol/L (10-20); BUN (Urea Nitrogen) 22 mg/dL (7.0-18.7); Bilirubin, Total 0.3 mg/dL (0.2-1.2); Calc. Creatinine Clearance 0 mL/min (70-130); Calcium 9.2 mg/dL (7.8-10.44); Carbon Dioxide 22 mmol/L (22-29); Chloride 105 mmol/L (98-107); Estimated GFR-MDRD 76; Globulin 3.3 g/dL (2.4-3.5); Glucose 95 mg/dL (70-105); Potassium 4.1 mmol/L (3.5-5.1); Protein, Total 7.4 g/dL (6.0-8.3); Sodium 137 mmol/L (136-145)
[2019-02-21 20:02] LABS: CKMB 4.8 ng/mL (0-6.6)
--- NOTE | 2019-02-21 20:55 | RAD ---
FExam: Chest one view HISTORY:Chest pain Comparison: 02/20/2019 FINDINGS: Lungs: No masses or consolidation. Cardiac silhouette: Normal size Pulmonary vessels: Normal Pleural Spaces: Clear Pneumothorax: None Osseous abnormalities: None of acuity. IMPRESSION: No focal consolidation
[2019-02-21] MEDS ORDERED: Morphine 4 MG/ML VIAL ONE (21:07)
[2019-02-21] MEDS ORDERED: Aspirin Chewable 81 MG TAB ONE (21:07)
[2019-02-22 00:11] LABS: Troponin I 0.065 ng/mL (< 0.028)
[2019-02-22 00:29] VITALS: BMI 282.3
[2019-02-22] MEDS ORDERED: Pramipexole Di-HCl 1 MG TAB PO SCH ×2 (00:45→21:00)
[2019-02-22] MEDS: Acetaminophen/Codeine 30-300mg Tablet PO PRN ×2 (00:54→11:16)
[2019-02-22] MEDS: Sodium Chloride 0.9% 1,000 ML IV SCH ×2 (00:55→10:06)
[2019-02-22] MEDS ORDERED: Nitroglycerin 0.4 MG TAB (25 Tab Bottle) PO PRN (01:50)
[2019-02-22 02:06] LABS: Troponin I 0.046 ng/mL (< 0.028)
[2019-02-22] MEDS ORDERED: Morphine 2 MG/ML SYRINGE SLOW IVP SCH (02:15)
[2019-02-22 06:25] LABS: Cardiac Risk 2.2 (Less than 4.5)
[2019-02-22] MEDS ORDERED: Nitroglycerin 0.4 MG TAB (25 Tab Bottle) SL PRN (08:50)
[2019-02-22] MEDS ORDERED: Estradiol 1 MG TAB PO SCH (09:00)
[2019-02-22] MEDS ORDERED: DULoxetine 60 MG CAP PO SCH (09:00)
[2019-02-22] MEDS ORDERED: Aspirin 81 mg Enteric Coated Tablet PO SCH (09:00)
[2019-02-22] MEDS ORDERED: Non-Formulary Item 1 EACH (Estradiol [Estradiol] 2 MG) PO SCH (09:00)
[2019-02-22] MEDS ORDERED: Amlodipine 5 MG TAB PO SCH (09:00)
[2019-02-22] MEDS ORDERED: traZODone HCl 50 MG TAB PO SCH (09:00)
[2019-02-22 09:23] LABS: #Basophils 0.1 thou/uL (0.0-0.2); #Monocytes 1.1 thou/uL (0.11-0.59); #Neutrophils 5.8 thou/uL (1.40-6.50); %Basophils 0.8 % (0.0-1.0); %Lymphocytes 33.6 % (21.0-51.0); %Monocytes 9.2 % (0.0-10.0); %Neutrophils 48.3 % (42.0-75.0); Hemoglobin 12.4 g/dL (12.0-16.0); Mean Corpuscular HGB CONC 31.6 g/dL (32.0-36.0); Mean Corpuscular Hemoglobin 28.2 pg (27.0-31.0); Mean Corpuscular Volume 89.4 fL (78.0-98.0); Mean Platelet Volume 7.5 fL (7.4-10.4); Platelet Count 262 thou/uL (130-400); RBC Distribution Width 13.7 % (11.5-14.5); Red Blood Cell (RBC) Count 4.39 mill/uL (4.20-5.40); White Blood Cell (WBC) Count 11.9 thou/uL (4.8-10.8)
[2019-02-22 09:44] LABS: ALT (SGPT) 22 U/L (8-55); AST (SGOT) 19 U/L (5-34); Albumin 3.5 g/dL (3.5-5.0); Alkaline Phosphatase 53 U/L (40-150); Anion Gap 14 mmol/L (10-20); BUN (Urea Nitrogen) 16 mg/dL (7.0-18.7); Bilirubin, Total 0.4 mg/dL (0.2-1.2); Calc. Creatinine Clearance 1098 mL/min (70-130); Calcium 8.7 mg/dL (7.8-10.44); Carbon Dioxide 22 mmol/L (22-29); Cardiac Risk 2.3 (Less than 4.5); Chloride 108 mmol/L (98-107); Cholesterol 200 mg/dl (< 200 Desired); Estimated GFR-MDRD 76; Globulin 2.8 g/dL (2.4-3.5); Glucose 147 mg/dL (70-105); HDL Cholesterol 88 mg/dL (>60 Neg Risk); LDL Cholesterol, Calculated 90 mg/dL; Magnesium 2.2 mg/dL (1.6-2.6); Potassium 3.7 mmol/L (3.5-5.1); Protein, Total 6.3 g/dL (6.0-8.3); Sodium 140 mmol/L (136-145); Triglycerides 111 mg/dL (Less than 150)
[2019-02-22] MEDS ORDERED: ALPRAZolam 0.5 MG TAB PO PRN (10:32)
[2019-02-22 11:43] VITALS: BP 118/63; TEMP 98.4
--- NOTE | 2019-02-22 12:14 | MRI ---
FBrain MRI without contrast: 02/22/2019 COMPARISON: None HISTORY: Left-sided weakness, evaluate for acute infarction TECHNIQUE: Multiplanar multisequence MR imaging brain without contrast FINDINGS: The diffusion weighted imaging demonstrates no evidence for acute infarction. Axial gradient echo imaging demonstrates no evidence for intracranial hemorrhage. Mucosal thickening of bilateral ethmoid air cells and bilateral maxillary sinuses noted. Arterial flow voids at axial level of skull base are unremarkable on the T2-weighted imaging. Regional bone marrow signal intensity within normal limits. IMPRESSION: No evidence for acute infarction.
--- NOTE | 2019-02-22 17:40 | CON ---
DATE OF CONSULTATION: 02/22/2019 CONSULTING PHYSICIAN: Hospitalist Services. IMPRESSION: Questionable ischemic event. Her findings appear psychosomatic. PLAN: MRI of the brain. HISTORY OF PRESENT ILLNESS: Ms. Rodriguez is a 48-year-old white female with a past history of chest pain. She was seen by Dr. Green, 2 weeks ago and had a cardiac cath and told that she had no evidence of any blockage. She was riding in a car yesterday and started experiencing chest pain. This was followed by what she describes as a heaviness and tingling involving the left side of the body. She came into the emergency room for evaluation. Her CT of the brain was negative. Her CT angiogram was completely clear. Vital signs were stable. She has been afebrile. All her lab work was unremarkable other than a mildly elevated glucose. She continues to complain of a feeling of heaviness and numbness involving the left side of the body. She denies any past history of similar events. She reports having had a cervical fusion and some scarring that has supposedly affected her vocal cords, although her speech is completely clear. PAST MEDICAL HISTORY: Sleep apnea, questionable coronary spasm, fibromyalgia, restless legs, and previous tobacco use. FAMILY HISTORY: Noncontributory. ALLERGIES: PENICILLIN, DOXYCYCLINE, HALDOL, LEVOFLOXACIN, AND ZIPRASIDONE. MEDICATIONS: Reviewed. She was on a baby aspirin daily. No statin. REVIEW OF SYSTEMS: A 10-system review of systems are otherwise negative. PHYSICAL EXAMINATION: VITAL SIGNS: Blood pressure 126/65, pulse 75, respirations 16, and temperature 98.3. HEENT: Pupils are equal and reactive. Conjunctivae clear. Oropharynx clear. NECK: Supple. No lymphadenopathy. EXTREMITIES: No cyanosis, clubbing, or edema. NEUROLOGIC: She was alert and cooperative. Her speech is fluent and clear. Cranial nerves were intact other than subjective decreased sensation on the left side of the face. Motor exam showed antigravity strength on the left side, although she moved it very slowly and perform rapid alternating movements very slowly. Subjectively, there was decreased sensation in the left arm and leg. Plantar response was downgoing bilaterally. Gait was not tested. No abnormal movements were seen. SUMMARY: Middle-aged woman with complaints of left-sided weakness and numbness. I do not see any clear objective findings to suggest that this is organic. I have a strong suspicion, this is psychosomatic. I will review her MRI once available. Job ID: [id number]
[2019-02-22] MEDS ORDERED: tiZANidine HCl 4 MG TAB PO SCH (21:00)
[2019-02-22] MEDS ORDERED: Non-Formulary Item 1 EACH (Tizanidine Hcl [Tizanidine Hcl] 4 MG) PO SCH (21:00)
--- NOTE | 2019-02-23 13:39 | EKG ---
Test Reason : STAT Blood Pressure : / mmHG Vent. Rate : 106 BPM Atrial Rate : 106 BPM P-R Int : 152 ms QRS Dur : 070 ms QT Int : 362 ms P-R-T Axes : 070 078 196 degrees QTc Int : 480 ms Sinus tachycardia Abnormal ECG When compared with ECG of 17-FEB-2019 08:40, No significant change was found Confirmed by ADOLFO RASMUSSEN, DR. Escobar ([id number]) on 02/23/2019 1:39:13 PM Referred By: Pako VALLE Confirmed By:DR. Shawn MATA MD
--- NOTE | 2019-02-24 15:00 | CT ---
CTA of the head with and without IV contrast and 3-D reformatted imaging. CTA of the neck with IV contrast and 3-D reformatted imaging 3 D Volume Rendering: DATE: 02/21/2019 12:00 AM HISTORY: Weakness, aphasia COMPARISON: None FINDINGS: Right: CCA:No significant stenosis. ICA:No significant stenosis. MCA:No significant stenosis. ZHOU:No significant stenosis. PHARMACY TECH CUSTOMER SERVICE:No significant stenosis. LEFT: CCA:No significant stenosis. ICA:No significant stenosis. MCA:No significant stenosis. ZHOU:No significant stenosis. PHARMACY TECH CUSTOMER SERVICE:No significant stenosis. Vertebrobasilar System: Left Vertebral:No significant stenosis. Right Vertebral:No significant stenosis. Basilar:No significant stenosis. IMPRESSION: No hemodynamically significant stenosis, occlusion or aneurysmal dilation. If neurologic deficits persist, recommend brain MRI to evaluate for early areas of ischemia that may be occult by CT imaging. Results telephoned at 1925 hours. Transcribed Date/Time: 02/24/2019 2:59 PM
== END 2019-02-22 13:55 | disposition home or self-care (01) ==
LOC: ERS 18:59 → 2SE 22:53
PROVIDERS: ADMIT Family Medicine; ATTEND Family Medicine
DX: R53.1 Weakness (principal); R20.0 Anesthesia of skin; R07.89 Other chest pain; G47.30 Sleep apnea, unspecified; M79.7 Fibromyalgia; J44.9 Chronic obstructive pulmonary disease, unspecified; G25.81 Restless legs syndrome; I25.2 Old myocardial infarction; F41.9 Anxiety disorder, unspecified; Z87.891 Personal history of nicotine dependence; Z79.82 Long term (current) use of aspirin; Z79.899 Other long term (current) drug therapy; Z88.0 Allergy status to penicillin; Z88.1 Allergy status to other antibiotic agents; Z88.8 Allergy status to other drugs, medicaments and biological substances
CPT/HCPCS: 36415; 36416; 70450; 70496; 70498; 70551; 71045; 80053; 80061; 82553; 83735; 84443; 84484; 85025; 85610; 85730; 86850; 86900; 86901; 93005; 93010; 94640; 94760; 96361; 96374; 96376; G0378; J2270; J7620; Q9966

== ENCOUNTER 2019-03-16 04:49 | Inpatient (IN) | payer BC ==
[2019-03-16] MEDS ORDERED: Magnesium 2 GM/50 ML BAG (IN WATER) ONE (05:13)
[2019-03-16] MEDS ORDERED: methylPREDNISolone Sod Succ/PF 125 MG/2 ML VIAL ONE (05:13)
[2019-03-16 05:20] LABS: #Basophils 0.1 thou/uL (0.0-0.2); #Eosinphils 0.7 thou/uL (0.0-0.7); #Lymphocytes 3.3 thou/uL (1.20-3.40); #Monocytes 1.4 thou/uL (0.11-0.59); #Neutrophils 4.7 thou/uL (1.40-6.50); %Basophils 0.9 % (0.0-1.0); %Eosinophils 7.2 % (0.0-10.0); %Monocytes 13.4 % (0.0-10.0); %Neutrophils 46.4 % (42.0-75.0); Hemoglobin 12.1 g/dL (12.0-16.0); Mean Corpuscular HGB CONC 32.5 g/dL (32.0-36.0); Mean Corpuscular Hemoglobin 28.6 pg (27.0-31.0); Mean Corpuscular Volume 87.9 fL (78.0-98.0); Mean Platelet Volume 7.9 fL (7.4-10.4); Platelet Count 256 thou/uL (130-400); RBC Distribution Width 13.8 % (11.5-14.5); Red Blood Cell (RBC) Count 4.23 mill/uL (4.20-5.40); White Blood Cell (WBC) Count 10.2 thou/uL (4.8-10.8)
[2019-03-16] MEDS ORDERED: Acetaminophen 500 MG TAB ONE (05:21)
[2019-03-16 05:36] LABS: ALT (SGPT) 16 U/L (8-55); AST (SGOT) 17 U/L (5-34); Albumin 3.6 g/dL (3.5-5.0); Alkaline Phosphatase 62 U/L (40-150); Anion Gap 13 mmol/L (10-20); BUN (Urea Nitrogen) 12 mg/dL (7.0-18.7); Bilirubin, Total 0.4 mg/dL (0.2-1.2); Calc. Creatinine Clearance 0 mL/min (70-130); Calcium 9.4 mg/dL (7.8-10.44); Carbon Dioxide 22 mmol/L (22-29); Chloride 108 mmol/L (98-107); Estimated GFR-MDRD 80; Globulin 3.3 g/dL (2.4-3.5); Glucose 103 mg/dL (70-105); Protein, Total 6.9 g/dL (6.0-8.3); Sodium 139 mmol/L (136-145)
[2019-03-16] MEDS ORDERED: cefTRIAXone\\ROCEPHIN 1 GM VIAL ONE (06:17)
[2019-03-16] MEDS ORDERED: Nitroglycerin 2% Ointment 1 INCH/1 GM Packet ONE (06:22)
[2019-03-16] MEDS ORDERED: Aspirin Chewable 81 MG TAB ONE (06:24)
[2019-03-16] MEDS ORDERED: Nitroglycerin 0.4 MG TAB 1 EACH ONE ×2 (06:24→10:40)
[2019-03-16] MEDS ORDERED: Azithromycin 500 MG VIAL ONE (06:30)
--- NOTE | 2019-03-16 07:56 | RAD ---
CHEST 1 VIEW: Date: 03/16/19 INDICATION: Dyspnea. COMPARISON: Prior exam dated 02/21/19. FINDINGS: Lungs are clear. Heart size appears to be normal. No acute osseous abnormality is noted. ACDF plate i nvolving lower cervical spine is within normal limits. IMPRESSION: No acute cardiopulmonary abnormality. POS: BH
[2019-03-16 08:25] LABS: Troponin I Less than 0.010 ng/mL (< 0.028)
[2019-03-16] MEDS ORDERED: Acetaminophen 650 MG Suppository PR PRN (09:44)
[2019-03-16] MEDS ORDERED: Albuterol Sulfate 2.5 mg/3 ml Neb NEB PRN (09:44)
[2019-03-16] MEDS ORDERED: Guaifenesin DM 100-10/5 ML UDCUP PO PRN (09:44)
[2019-03-16] MEDS ORDERED: Senokot S 8.6-50 MG TAB PO PRN (09:44)
[2019-03-16] MEDS ORDERED: Acetaminophen 325 MG TAB PO PRN (09:44)
[2019-03-16] MEDS ORDERED: Ondansetron PF 4 MG/2 ML Vial IVP PRN (09:44)
[2019-03-16] MEDS ORDERED: Ondansetron ODT 4 MG TAB PO PRN (09:44)
[2019-03-16] MEDS: Nitroglycerin 0.4 MG TAB (25 Tab Bottle) SL PRN ×3 (10:42→23:11)
[2019-03-16] MEDS ORDERED: methylPREDNISolone Sod Succ 40 MG VIAL ONE (11:08)
[2019-03-16] MEDS: methylPREDNISolone Sod Succ 40 MG VIAL IVP SCH ×3 (11:12→23:51)
[2019-03-16 11:15] LABS: Troponin I Less than 0.010 ng/mL (< 0.028)
[2019-03-16] MEDS: ALPRAZolam 0.5 MG TAB PO PRN ×2 (12:10→21:34)
[2019-03-16] MEDS ORDERED: ALPRAZolam 0.25 MG TAB ONE (12:11)
--- NOTE | 2019-03-16 15:21 | HP ---
PRIMARY CARE PHYSICIAN: Dr. Mevlina Copeland at [facility]. CHIEF COMPLAINT: Hypoxia and respiratory difficulty. HISTORY OF PRESENT ILLNESS: This is a 48-year-old white female with a known history of COPD/asthma and vocal cord dysfunction. She has been seen multiple times over the last month for some chest pains and some trouble in breathing associated with some numbness on the side of her body, who was ruled out for a stroke. She had a negative cardiac cath, thought to have some coronary artery spasm. Today, the patient comes in reporting about 3-week history of worsening cough, wheezing, and trouble breathing. She states that she has been on an outpatient steroid course, which do not seem to help. Her nebs at home did not seem to help at all and then today, when she woke up, she checked her oxygen saturation, it was in the 86% to 87%, so she came to the ER. In the emergency room, the patient has been saturating in the low to mid 90s on room air. She has had some increased work of breathing and lots of coughing. She was given Rocephin, azithromycin, DuoNeb x3, magnesium, and methylprednisolone in the emergency room without any significant change in her symptoms, though she is breathing a little bit slower now at 17 breaths per minute. Per the history in the chart, the patient actually has been seen by Dr. Grey multiple times. He recommends not intubating her even if she looks like she is in respiratory distress secondary to this being mostly vocal cord dysfunction and exacerbated by her anxiety. At this time, she is not in severe respiratory distress and we will admit her to the hospital and have Pulmonology consult. PAST MEDICAL HISTORY: 1. COPD/asthma. 2. Vocal cord dysfunction with multiple previous intubations. 3. Restless legs syndrome. 4. Fibromyalgia. 5. Obstructive sleep apnea on home BiPAP at night. 6. Pelvic cyst with scheduled surgical removal in the near future. 7. Insulin resistance when on steroids. PAST PSYCHIATRIC HISTORY: Anxiety/depression. PAST SURGICAL HISTORY: 1. Normal cardiac catheterization in January of 2019 as well as in 2011. 2. Ulnar nerve transposition in both arms. 3. ACDF, C5 through C7. 4. Total hysterectomy. 5. Appendectomy. 6. Tonsillectomy. 7. Bladder suspension. SOCIAL HISTORY: The patient is a smoker, attempting to quit and has been using vaping and nicotine patches on and off to assist over the last month. No alcohol or illicit drug use. She is , accompanied by her in the room. ALLERGIES: 1. GEODON. 2. PENICILLIN. 3. DOXYCYCLINE. 4. HALDOL. 5. LEVAQUIN. 6. CLARITIN. 7. MORPHINE. 8. ISOSORBIDE CAUSES SWELLING. CURRENT MEDICATIONS: 1. Montelukast 10 mg daily. 2. Carvedilol 6.25 mg twice a day. 3. Prednisone Dosepak. 4. DuoNeb as needed. 5. Alprazolam 0.5 mg as needed. 6. Aspirin 81 mg daily. 7. Cymbalta 60 mg daily. 8. Estradiol 2 mg daily. 9. Melatonin at night. 10. Nitroglycerin as needed. 11. Pramipexole 2 mg at night. 12. Tizanidine 4 mg at night. 13. Trazodone 50 mg daily. REVIEW OF SYSTEMS: CONSTITUTIONAL: No fevers. She has had chills. EYES: No double vision or blurred vision. ENT: No congestion, drainage, or sore throat. CARDIOVASCULAR: She has had intermittent chest pains worsening over the last month. Worked up with a negative cath last month by Dr. Green. No current chest pain in the emergency room right now. PULMONARY: See HPI. GASTROINTESTINAL: No abdominal pain. No nausea. She does have vomiting about once every other day during coughing fits. No diarrhea or constipation. GENITOURINARY: No dysuria or hematuria. MUSCULOSKELETAL: She has diffuse muscle aches throughout her body from her fibromyalgia at baseline currently. NEUROLOGIC: No numbness, tingling, or focal weakness. PHYSICAL EXAMINATION: VITAL SIGNS: Blood pressure 125/65, pulse 91, respirations 17, temperature 98.3, and O2 saturation 96% on room air. GENERAL: This is a well-developed, obese white female with some mild increased respiratory work of breathing and coughing. HEENT: Pupils are equal, round, and reactive to light. Oropharynx clear without lesions, erythema, or exudate. NECK: Supple. No lymphadenopathy. No thyroid nodules or enlargement. HEART: Regular rate and rhythm. No murmurs, rubs, or gallops. LUNGS: The patient has decent air movement throughout. She does have some upper airway expiratory wheezing/stridor. No inspiratory stridor sounds more like vocal cord issues than bronchial wheezing at this point. No rhonchi or crackles. ABDOMEN: Soft and nontender to palpation. Normoactive bowel sounds. No hepatosplenomegaly or other masses. EXTREMITIES: No clubbing, cyanosis, or edema. SKIN: No rashes or lesions noted. NEUROLOGIC: Intact strength and sensation in all extremities. No facial droop. PSYCHIATRIC: Alert and oriented x3. Mildly anxious affect. LABORATORY DATA: CBC within normal limits. Complete metabolic panel notable only for chloride of 108. Rest was normal. Troponin is negative x2. Chest x-ray, I did review the chest x-ray done in the emergency room along with the radiologist's report. No acute cardiopulmonary process. No infiltrates no evidence pneumonia or congestive failure. EKG done in the emergency room shows normal sinus rhythm at 78 beats per minute with similar to old EKG. ASSESSMENT: 1. Acute hypoxic respiratory failure, now resolved, not requiring oxygen in the emergency room. 2. Acute exacerbation of chronic obstructive pulmonary disease/vocal cord dysfunction. The patient does not appear to have any pneumonia at this time. No significant sputum. We will discontinue antibiotics. We will continue Solu-Medrol IV and nebulizer treatments and we will admit patient to the hospital. We will consult Dr. Grey, I believe Dr. Lincoln is on-call for him today and we will monitor closely for improvement or any worsening of respiratory status. We can try her with some p.r.n. Ativan should she get very anxious and started having difficulty breathing from that. 3. Obstructive sleep apnea. The patient is going to have her bring her BiPAP to use at night. 4. Anxiety. We will resume the patient's home medications. 5. Restless legs syndrome. We will resume the patient's home medications. 6. Possible coronary artery spasm. We will resume the patient's carvedilol and aspirin. 7. Fibromyalgia. We will resume the patient's muscle relaxant. 8. Gastrointestinal prophylaxis. Put the patient on Protonix while she is on the steroids. 9. Deep venous thrombosis prophylaxis. We will put the patient on Lovenox while she is in the hospital. 10. Code status. I did discuss with the patient. She is a full code. Should she be incapacitated, her will be her medical decision maker, his name is a Regino Rodriguez. Job ID: [id number]
[2019-03-16] MEDS ORDERED: Magnesium 2 GM/50 ML 2 GM in Premix Bag 1 BAG IVPB SCH (15:45)
[2019-03-16 16:02] VITALS: BMI 29.5
--- NOTE | 2019-03-16 16:15 | CON ---
DATE OF CONSULTATION: HISTORY OF PRESENT ILLNESS: Mely Rodriguez is a 48-year-old obese female, 81 kg, presented with shortness of breath, chest pain, coughing some yellow sputum, unable to control her breathing with usual home medication, 7 times nebs, three o'clock in the morning arrived to the hospital. She was just recently discharged from here with extensive wheezing, was given additional neb treatments, steroids and now she tells me that every time she takes IV Medrol, she starts having shakes. She wants some medicine for that. Recent extensive medical history is well outlined. She says that mostly she can barely walk even a couple of 100 feet without getting much markedly short of breath. PAST MEDICAL HISTORY: Chronic asthma, COPD, vocal cord dysfunction, restless legs syndrome, hypoglycemia, anxiety, depression. PREVIOUS SURGERIES: Appendix, hysterectomy, cardiac cath, and ulnar nerve surgery. SOCIAL HISTORY: She has ongoing tobacco abuse, though says apparently quit smoking about a month ago. ALLERGIES: HALDOL, PENICILLIN, LEVAQUIN, DOXYCYCLINE. HOME MEDICATIONS: 1. Singulair 10. 2. Coreg 6.25. 3. Tizanidine 4 mg. 4. Zantac. 5. Mirapex 2 mg. 6. ISMO 30. 7. Xanax 0.5 p.r.n. 8. Cymbalta 60. 9. Imdur 30. 10. Melatonin 3 mg. REVIEW OF SYSTEMS: Otherwise 10 point negative. PHYSICAL EXAMINATION: VITAL SIGNS: Sats are 95 to 96 on 2 L, pulse 80, blood pressure 130/80. CHEST: Diffuse wheezing. CARDIAC: Normal S1, S2. No gallops. ABDOMEN: Soft. No masses. LABORATORY DATA: White count 10,000. Lytes are normal. Chest x-ray shows no acute infiltrates. IMPRESSION: 1. Chronic obstructive pulmonary disease, asthma exacerbation. 2. Major anxiety, depression, sleep apnea, hypertension, apparently coronary spasm. Continue on home medication. I have added magnesium to a present treatment. We will notify Dr. Grey. Additionally, is going to bring BiPAP from home. Consultation note, 70 minutes, 50% direct patient care. Job ID: [id number]
[2019-03-16] MEDS: Carvedilol 6.25 MG TAB PO SCH (17:18)
[2019-03-16] MEDS: Acetaminophen/Codeine 30-300mg Tablet PO PRN (17:19)
[2019-03-16] MEDS: Mometasone/Formoterol 120 PUFF INHALER INH SCH (20:21)
[2019-03-16] MEDS: Melatonin 3 MG TAB PO SCH (21:32)
[2019-03-16] MEDS: Montelukast Sodium 10 mg Tablet PO SCH (21:34)
[2019-03-16] MEDS: tiZANidine HCl 4 MG TAB PO SCH (21:34)
[2019-03-16] MEDS: Pramipexole Di-HCl 1 MG TAB PO SCH (21:34)
[2019-03-16] MEDS ORDERED: traZODone HCl 50 MG TAB PO SCH (22:36)
[2019-03-16 23:41] LABS: Actual Bicarbonate (HCO3a) 24.8 mEq/L (22-28); Analyzer IN Cardio OR; Base Excess (BEa) -1.4 mEq/L (-2.0 to +3.0); CO2 Tension 48.2 mmHg (35.0-45.0); Calcium, Ionized 1.22 mmol/L (1.12-1.30); Carboxyhemoglobin (COHb) 0.8 gm% (0.0-3.0); Hemoglobin (Hb) 12.5 g/dL (12.0-16.0); O2 Tension (PaO2) 125.8 mmHg (80.0-100.0); pH, Arterial 7.33 (7.35-7.45)
[2019-03-16 23:50] LABS: Puncture Site LRA
[2019-03-17] MEDS: Acetaminophen/Codeine 30-300mg Tablet PO PRN ×3 (03:24→20:26)
[2019-03-17 05:10] LABS: #Lymphocytes 1.1 thou/uL (1.20-3.40); #Monocytes 0.5 thou/uL (0.11-0.59); #Neutrophils 9.9 thou/uL (1.40-6.50); %Basophils 0.2 % (0.0-1.0); %Eosinophils 0.1 % (0.0-10.0); %Lymphocytes 9.4 % (21.0-51.0); %Monocytes 4.4 % (0.0-10.0); %Neutrophils 85.9 % (42.0-75.0); Hemoglobin 11.6 g/dL (12.0-16.0); Mean Corpuscular HGB CONC 31.4 g/dL (32.0-36.0); Mean Corpuscular Hemoglobin 27.3 pg (27.0-31.0); Mean Corpuscular Volume 86.7 fL (78.0-98.0); Mean Platelet Volume 7.9 fL (7.4-10.4); Platelet Count 277 thou/uL (130-400); RBC Distribution Width 13.9 % (11.5-14.5); Red Blood Cell (RBC) Count 4.26 mill/uL (4.20-5.40); White Blood Cell (WBC) Count 11.6 thou/uL (4.8-10.8)
[2019-03-17 05:32] LABS: Anion Gap 15 mmol/L (10-20); BUN (Urea Nitrogen) 15 mg/dL (7.0-18.7); Calc. Creatinine Clearance 122 mL/min (70-130); Carbon Dioxide 21 mmol/L (22-29); Chloride 106 mmol/L (98-107); Estimated GFR-MDRD 82; Glucose 148 mg/dL (70-105); Potassium 3.7 mmol/L (3.5-5.1); Sodium 138 mmol/L (136-145)
[2019-03-17] MEDS: methylPREDNISolone Sod Succ 40 MG VIAL IVP SCH ×3 (05:49→17:44)
[2019-03-17] MEDS: Mometasone/Formoterol 120 PUFF INHALER INH SCH ×2 (07:13→18:51)
[2019-03-17] MEDS: Nitroglycerin 0.4 MG TAB (25 Tab Bottle) SL PRN ×2 (08:25→08:31)
[2019-03-17] MEDS ORDERED: Sodium Chloride 0.9% 10 ML ONE ×2 (08:55→11:07)
[2019-03-17] MEDS: Enoxaparin Sodium 40 MG/0.4 ML SYRINGE SC SCH (09:30)
[2019-03-17] MEDS: Nicotine 21 MG PATCH TOP SCH (09:31)
[2019-03-17] MEDS: Aspirin 81 mg Enteric Coated Tablet PO SCH (09:32)
[2019-03-17] MEDS: Estradiol 1 MG TAB PO SCH (09:32)
[2019-03-17] MEDS: ALPRAZolam 0.5 MG TAB PO PRN ×2 (09:33→16:12)
[2019-03-17] MEDS: DULoxetine 60 MG CAP PO SCH (09:33)
[2019-03-17] MEDS: Carvedilol 6.25 MG TAB PO SCH ×2 (09:33→16:08)
--- NOTE | 2019-03-17 10:08 | PRG ---
DATE OF SERVICE: 03/17/2019 SUBJECTIVE: The patient says that she is short of breath, although she does not appear such. OBJECTIVE: VITAL SIGNS: Temperature 97.6, pulse 86, respirations 18, O2 saturation 96% on 3 L, and blood pressure 122/67. HEENT: Unremarkable. NECK: No stridorous noise. LUNGS: Clear. CARDIAC: S1 and S2, regular. ABDOMEN: Soft. EXTREMITIES: No edema. LABORATORY DATA: White blood cell count is 11.6, hematocrit 36.9, and platelet count 277. Sodium 138, potassium 3.7, chloride 106, CO2 of 21, BUN 15, creatinine 0.7, and glucose 148. ASSESSMENT: 1. Vocal cord dysfunction. 2. Borderline personality. 3. Probable some degree of chronic obstructive pulmonary disease. 4. Obstructive sleep apnea. PLAN: This is mainly an anxiety and manipulative personality situation. Unfortunately, there has been nothing I have been able to do in the past to convince her otherwise. I would treat this as a COPD exacerbation, give her some time, and she will likely improve and be able to be discharged in a day or two. Job ID: [id number]
--- NOTE | 2019-03-17 12:44 | PDOC.PN ---
- Subjective Encounter Start Date: 03/17/19 Encounter Start Time: 12:42 Ms. Rodriguez was seen today in follow-up of COPD exacerbation and vocal cord paralysis. She is feeling about the same. she is able to speak in full sentences , and does not appear to be in distress. - Objective Resuscitation Status - Order Detail: 03/16/19 09:36 Resuscitation Status Routine Resuscitation Status: FULL: Full Resuscitation Discussed with: Patient MAR Reviewed: Yes Vital Signs & Weight: Vital Signs (12 hours) Temp Pulse Resp BP BP BP Pulse Ox 03/17/19 09:33 122/67 03/17/19 08:25 86 18 122/67 96 03/17/19 08:19 97.6 F 88 18 125/68 96 03/17/19 07:13 100 16 03/17/19 03:35 95 16 132/75 95 Weight Weight 188 lb 4 oz I&O: 03/16/19 03/17/19 03/18/19 06:59 06:59 06:59 Intake Total 720 Output Total 300 Balance 420 Result Diagrams: 03/17/19 04:46 03/17/19 04:46 Additional Labs: Accuchecks 03/16/19 23:23 POC Glucose 146 H Phys Exam - Physical Examination HEENT: PERRLA + bilateral wheezing and occasional rhonchi Cardiovascular: RRR, no significant murmur, no rub Gastrointestinal: soft, non-tender, no distention, positive bowel sounds Musculoskeletal: no edema, pulses present Dx/Plan (1) Acute and chronic respiratory failure with hypoxia Code(s): J96.21 - ACUTE AND CHRONIC RESPIRATORY FAILURE WITH HYPOXIA Status: Acute (2) COPD exacerbation Code(s): J44.1 - CHRONIC OBSTRUCTIVE PULMONARY DISEASE W (ACUTE) EXACERBATION Status: Acute (3) Anxiety and depression Code(s): F41.9 - ANXIETY DISORDER, UNSPECIFIED; F32.9 - MAJOR DEPRESSIVE DISORDER, SINGLE EPISODE, UNSPECIFIED Status: Chronic Comment: stable (4) Vocal cord dysfunction Code(s): J38.3 - OTHER DISEASES OF VOCAL CORDS Status: Chronic Comment: as above - Plan * Acute on chronic respiratory failure due to COPD exacerbation- Pulmonary recommendations noted * Continue Duonebs, and IV solumedrol, and long acting beta- agonist * Anxiety and depression is stable.
[2019-03-17] MEDS: Melatonin 3 MG TAB PO SCH (20:27)
[2019-03-17] MEDS: Montelukast Sodium 10 mg Tablet PO SCH (20:27)
[2019-03-17] MEDS: tiZANidine HCl 4 MG TAB PO SCH (20:27)
[2019-03-17] MEDS ORDERED: traZODone HCl 50 MG TAB PO SCH (21:00)
[2019-03-17] MEDS: Pramipexole Di-HCl 1 MG TAB PO SCH (21:16)
[2019-03-18] MEDS: methylPREDNISolone Sod Succ 40 MG VIAL IVP SCH ×3 (00:16→12:22)
[2019-03-18] MEDS: ALPRAZolam 0.5 MG TAB PO PRN (00:16)
[2019-03-18] MEDS: Acetaminophen/Codeine 30-300mg Tablet PO PRN (05:19)
[2019-03-18] MEDS: Mometasone/Formoterol 120 PUFF INHALER INH SCH (07:07)
[2019-03-18] MEDS ORDERED: Sodium Chloride 0.9% 10 ML ONE ×2 (09:10→12:17)
--- NOTE | 2019-03-18 10:11 | PRG ---
DATE OF SERVICE: 03/18/2019 SUBJECTIVE: Ms. Rodriguez is feeling better today. She is much more talkative. OBJECTIVE: VITAL SIGNS: Temperature is 98.3, pulse 82, blood pressure 135/74, and O2 saturation 97%. HEENT: Unremarkable. NECK: Without adenopathy, JVD, or bruits. LUNGS: Diffuse rhonchi bilaterally, anteriorly and posteriorly. CARDIAC: S1 and S2, regular. ABDOMEN: Soft. EXTREMITIES: No edema. ASSESSMENT: 1. Chronic obstructive pulmonary disease with exacerbation. 2. Vocal cord dysfunction. PLAN: She is probably near her baseline. I would not have any injection to her going home with steroid taper. Job ID: [id number]
[2019-03-18] MEDS: Estradiol 1 MG TAB PO SCH (10:45)
[2019-03-18] MEDS: Aspirin 81 mg Enteric Coated Tablet PO SCH (10:45)
[2019-03-18] MEDS: Enoxaparin Sodium 40 MG/0.4 ML SYRINGE SC SCH (10:45)
[2019-03-18] MEDS: Nicotine 21 MG PATCH TOP SCH (10:45)
[2019-03-18] MEDS: Carvedilol 6.25 MG TAB PO SCH (10:46)
[2019-03-18] MEDS: DULoxetine 60 MG CAP PO SCH (10:46)
--- NOTE | 2019-03-18 11:17 | PDOC.PN ---
- Subjective Encounter Start Date: 03/18/19 Encounter Start Time: 11:16 Ms. Rodriguez was seen today in follow-up of COPD exacerbation. She is doing better today. she would like to go home. - Objective Resuscitation Status - Order Detail: 03/16/19 09:36 Resuscitation Status Routine Resuscitation Status: FULL: Full Resuscitation Discussed with: Patient POPEYE Reviewed: Yes Vital Signs & Weight: Vital Signs (12 hours) Temp Pulse Resp BP BP Pulse Ox 03/18/19 10:46 143/75 H 03/18/19 08:00 98.3 F 82 16 135/74 97 03/18/19 07:08 90 16 03/18/19 04:00 97.8 F 87 18 138/71 96 03/18/19 02:38 81 16 96 Weight Admit Weight 188 lb 1 oz Weight 188 lb 3 oz I&O: 03/17/19 03/18/19 03/19/19 06:59 06:59 06:59 Intake Total 720 1910 Output Total 300 2000 Balance 420 -90 Result Diagrams: 03/17/19 04:46 03/17/19 04:46 Phys Exam - Physical Examination HEENT: PERRLA Respiratory: wheezing present + bilateral wheezing, Cardiovascular: RRR, no significant murmur, no rub Gastrointestinal: soft, non-tender, no distention, positive bowel sounds Musculoskeletal: pulses present, edema present + non-pitting edema in both legs Neurological: non-focal Dx/Plan (1) Acute and chronic respiratory failure with hypoxia Code(s): J96.21 - ACUTE AND CHRONIC RESPIRATORY FAILURE WITH HYPOXIA Status: Acute (2) COPD exacerbation Code(s): J44.1 - CHRONIC OBSTRUCTIVE PULMONARY DISEASE W (ACUTE) EXACERBATION Status: Acute (3) Anxiety and depression Code(s): F41.9 - ANXIETY DISORDER, UNSPECIFIED; F32.9 - MAJOR DEPRESSIVE DISORDER, SINGLE EPISODE, UNSPECIFIED Status: Chronic Comment: stable (4) Vocal cord dysfunction Code(s): J38.3 - OTHER DISEASES OF VOCAL CORDS Status: Chronic Comment: as above - Plan * Acute on chronic respiratory failure- improved * Tobacco Abuse- discussed smoking cessation- and will send home with a Nicotine patch * Stable for discharge home..
[2019-03-18] MEDS ORDERED: Albuterol Sulfate 2.5 mg/3 ml Neb NEB PRN (11:22)
[2019-03-18 12:29] VITALS: BP 150/76; TEMP 98.4
--- NOTE | 2019-03-19 04:02 | DIS ---
DATE OF ADMISSION: 03/16/2019 DATE OF DISCHARGE: 03/18/2019 PRIMARY CARE PHYSICIAN: Dr. Melvina Copeland at [facility]. DISCHARGE DISPOSITION: Home. PRIMARY DISCHARGE DIAGNOSES: 1. Acute on chronic respiratory failure with hypoxemia. 2. Chronic obstructive pulmonary disease exacerbation. 3. Vocal cord dysfunction. 4. Restless legs syndrome. 5. Fibromyalgia. 6. Obstructive sleep apnea, on BiPAP. CODE STATUS: Full code. ALLERGIES: ZIPRASIDONE, PENICILLINS, DOXYCYCLINE, HALOPERIDOL, LEVAQUIN, LORATADINE, AND PENICILLIN G. DISCHARGE MEDICATIONS: 1. Nicotine patch 12 mcg daily. 2. Carvedilol 6.25 mg twice a day. 3. Ventolin inhaler q.4 hours as needed. 4. Zantac 150 mg as needed. 5. Chantix 1 mg daily. 6. Trazodone 50 mg daily. 7. Tizanidine 4 mg q.h.s. 8. Pramipexole 2 mg daily. 9. Nitrostat 0.4 sublingual p.r.n. 10. Singulair 10 mg daily. 11. Melatonin 3 mg q.h.s. 12. Estradiol 2 mg daily. 13. Cymbalta 60 mg daily. 14. Carvedilol 6.25 mg twice a day. 15. Alprazolam 0.5 mg t.i.d. as needed. 16. Tylenol No.3 one to two tablets q.8h as needed. HOSPITAL COURSE: Ms. Rodriguez is a pleasant 48-year-old female, who presented to the emergency room complaining of shortness of breath. She has a history of multiple hospital admissions due to vocal cord dysfunction. It is likely that this represents a similar episode. She also has some reactive airway disease. She was admitted, started on DuoNebs and steroids, and improved significantly over the course of the next couple of days. She was also seen by her insurance examiner, and after she improved, she was able to be discharged home to have close outpatient followup. Job ID: [id number]
== END 2019-03-18 14:15 | disposition home or self-care (01) | DRG 190 ==
LOC: ERS 04:49 → ERHOLD 06:21 → 2NO 13:43
PROVIDERS: ADMIT Hospitalist; ATTEND Hospitalist
DX: J44.1 Chronic obstructive pulmonary disease with (acute) exacerbation (principal); J96.21 Acute and chronic respiratory failure with hypoxia; I20.1 Angina pectoris with documented spasm; J38.3 Other diseases of vocal cords; G25.81 Restless legs syndrome; M79.7 Fibromyalgia; G47.33 Obstructive sleep apnea (adult) (pediatric); F41.9 Anxiety disorder, unspecified; F17.200 Nicotine dependence, unspecified, uncomplicated; E66.9 Obesity, unspecified; F32.9 Major depressive disorder, single episode, unspecified; Z98.1 Arthrodesis status; Z90.710 Acquired absence of both cervix and uterus; Z88.0 Allergy status to penicillin; Z88.8 Allergy status to other drugs, medicaments and biological substances; Z88.5 Allergy status to narcotic agent; Z88.1 Allergy status to other antibiotic agents; Z79.52 Long term (current) use of systemic steroids; Z79.82 Long term (current) use of aspirin; Z68.29 Body mass index [BMI] 29.0-29.9, adult
CPT/HCPCS: 36415; 36416; 71045; 80048; 80053; 82805; 84484; 85025; 93005; 94640; 94760; J0456; J0696; J1650; J2920; J2930; J3475; J7620

== ENCOUNTER 2019-03-24 10:55 | Day surgery (SDC) | payer BC ==
[2019-03-23 11:39] VITALS: BMI 28.5
[2019-03-23 13:13] LABS: Hemoglobin 13.2 g/dL (12.0-16.0); Mean Corpuscular HGB CONC 33.2 g/dL (32.0-36.0); Mean Corpuscular Hemoglobin 28.6 pg (27.0-31.0); Mean Corpuscular Volume 86.2 fL (78.0-98.0); Platelet Count 259 thou/uL (130-400); RBC Distribution Width 13.5 % (11.5-14.5); Red Blood Cell (RBC) Count 4.61 mill/uL (4.20-5.40); White Blood Cell (WBC) Count 10.5 thou/uL (4.8-10.8)
--- NOTE | 2019-03-23 14:40 | HP ---
She is scheduled for outpatient surgery on March 24. HISTORY OF PRESENT ILLNESS: Ms. Rodriguez is a 48-year-old white female with history of previous complete hysterectomy with BSO with appendectomy back in 2001. She has been noticing some dyspareunia that is mainly deep-seated, that has started occurring over the past year or so. She was seen in the emergency room at the [facility] ER for some upper abdominal pain, for which a CAT scan of the abdomen and pelvis was performed. At that time, she was noted to have a 3 x 5 cm right-sided near the upper vaginal cuff simple pelvic cyst. With a recent onset of dyspareunia over the past year, then she feel that this may be contributing to this recent change in her pelvic pain status. PAST MEDICAL HISTORY: Her past medical history is for chronic hypertension. She also has some cardiac issues, for which she has had a recent cardiac catheterization with Dr. Green, which she reported her arteries to be normal. The heart muscle was somewhat weak. She is a former smoker, trying to presently discontinue smoking. She has some other issues that are asthma/COPD. She also has chronic back pain. Depression. PAST SURGICAL HISTORY: As noted, hysterectomy and BSO. Recent pelvic ultrasound in my office on 02/27/2019 does show the 3 x 5 cm cystic right-sided pelvic cyst near the vaginal cuff line. CURRENT MEDICATIONS: Numerous. She has; 1. Acetaminophen. 2. Tylenol with Codeine 1 p.o. q.6 hours p.r.n. pain. 3. Alprazolam 0.5 mg b.i.d. p.r.n. 4. Amlodipine 5 mg daily. 5. Brovana 15 mcg-2 mL solution for nebulization. 6. Budesonide suspension for nebulization. 7. Calcipotriene topical cream 0.05%. 8. Chantix 1 mg daily. 9. Cyclobenzaprine 10 mg tablet q.8 hours p.r.n. back spasms. 10. Diazepam 5 mg p.o. as needed. 11. Duloxetine 60 mg capsule daily. 12. Escitalopram 10 mg daily. 13. Estradiol 2 mg daily. 14. Ipratropium/albuterol 0.5-3 mg nebulization solution as needed. 15. Isosorbide extended release 30 mg tablet daily. 16. Montelukast 10 mg tablet daily. 17. Nicoderm patch was presently on it and weaning off. 18. Nitroglycerin 0.4 mg sublingual tablet daily. 19. Nortriptyline 10 mg tablet at bedtime. 20. Olanzapine 5 mg tablet daily. 21. Pramipexole 0.5 mg tablet daily. 22. ProAir MDI 2 puffs q.6 hours p.r.n. wheezing. 23. Symbicort 80 mcg MDI daily. 24. Trazodone 50 mg tablet at bedtime. 25. Fiber tablet 10 mg daily. PHYSICAL EXAMINATION: VITAL SIGNS: The patient is 5 foot 7 inches, 187 pounds, and BMI 29.3. Blood pressure 120/72, pulse 98, respiratory rate 18, and O2 saturation 99% on room air. HEENT: Within normal limits. CHEST: Clear. HEART: Regular rate and rhythm. S1 and S2 heart sounds. ABDOMEN: Soft, nontender, and nondistended with no palpable masses. PELVIC: Vulva and vagina had no lesions. Bladder was nontender. She has tenderness in the vaginal cuff at the right posterior cuff, where the presumed cyst was noted on pelvic ultrasound. ASSESSMENT AND PLAN: This is a 48-year-old white female with previous complete hysterectomy with bilateral salpingo-oophorectomy and appendectomy in 2001 with recent onset of dyspareunia that is deep-seated and is tender on the right vaginal cuff. The patient strongly desires surgical investigation of this and excision due to the impact is causing in her intimacy with her . Risks and benefits of procedure, I have discussed in detail with the patient. She is set for surgery on 03/24/2019. Job ID: [id number]
[2019-03-24] MEDS ORDERED: Gabapentin 300 MG CAP ONE (11:15)
[2019-03-24] MEDS ORDERED: CeleCOXIB 100 MG CAP ONE (11:16)
[2019-03-24] MEDS ORDERED: Famotidine/PF 20 mg/2ml Vial ONE (11:16)
[2019-03-24] MEDS ORDERED: Rocuronium Bromide 10 MG/ML (10ML VIAL) ONE (14:21)
[2019-03-24] MEDS ORDERED: Lidocaine 1% PF 5 ML VIAL ONE (14:21)
[2019-03-24] MEDS ORDERED: Ondansetron PF 4 MG/2 ML Vial ONE (14:21)
[2019-03-24] MEDS ORDERED: PROVENTIL INHALER 6.7 G (200 INHALATIONS) ONE (14:21)
[2019-03-24] MEDS ORDERED: Dexamethasone 20 MG/5 ML VIAL ONE (14:21)
[2019-03-24] MEDS ORDERED: PROPOFOL 200 MG/20 ML VIAL ONE (14:21)
[2019-03-24] MEDS ORDERED: Glycopyrrolate 0.2 MG/ML 5 ML SYRINGE ONE (14:21)
[2019-03-24] MEDS ORDERED: ePHEDrine 50 MG/ML VIAL ONE (14:21)
[2019-03-24] MEDS ORDERED: Clindamycin/D5W 900 mg/50 ml Premix Bag ONE (14:37)
[2019-03-24] MEDS ORDERED: Lidocaine 2% Jelly 5 ML TUBE ONE (14:57)
[2019-03-24] MEDS ORDERED: Albuterol Sulfate HFA (OR ONLY) ONE (14:57)
[2019-03-24] MEDS ORDERED: Fentanyl 100 MCG/2 ML VIAL ONE ×4 (14:57→17:45)
[2019-03-24] MEDS ORDERED: Bupivacaine HCl 0.5%/Epinephrine 1:200,000/PF 30 ml Vial ONE (14:59)
[2019-03-24] MEDS ORDERED: Promethazine HCl 25 MG/ML VIAL ONE (17:10)
[2019-03-24] MEDS ORDERED: diphenhydrAMINE 50 MG/ML VIAL ONE (19:33)
[2019-03-24] MEDS ORDERED: HYDROcodone/Acetaminophen 5/325 mg Tablet ONE (20:03)
--- NOTE | 2019-03-24 23:58 | OP ---
DATE OF PROCEDURE: 03/24/2019 PREOPERATIVE DIAGNOSES: 1. A 48-year-old white female with history of previous hysterectomy, bilateral salpingo-oophorectomy, and bladder neck suspension with recent dyspareunia. 2. A 3 x 5 cm pelvic cyst seen on CAT scan. POSTOPERATIVE DIAGNOSES: 1. A 48-year-old white female with history of previous hysterectomy, bilateral salpingo-oophorectomy, and bladder neck suspension with recent dyspareunia. 2. A 3 x 5 cm pelvic cyst seen on CAT scan. PROCEDURES PERFORMED: Robotic diagnostic laparoscopy with lysis of adhesions and excision of pelvic cyst. ANTIQUE REPAIRER SURGEON: Alejandra Castillo PA-C ANESTHESIA: General endotracheal. ESTIMATED BLOOD LOSS: Less than 10 mL. COMPLICATIONS: None. COUNTS: Correct x2. FINDINGS: 1. The patient is status post hysterectomy and bilateral salpingo-oophorectomy. 2. She had omental abdominal wall adhesion status post excision. 3. Filmy adhesion of the small bowel to the vaginal cuff status post adhesiolysis. 4. Approximately 3 x 5 cm cyst in the posterior cul-de-sac that had a residual serosanguinous fluid status post excision. PATHOLOGY: Cyst wall. DISPOSITION: Recovery room, stable and plan for discharge home from Day Stay. DESCRIPTION OF PROCEDURE: The patient previously received informed consent in regard to surgery. She was taken back to the operating room, where she received a general endotracheal anesthetic agent without complications. She was placed in the dorsal lithotomy position with the use of Dixon stirrups and prepped and draped in usual sterile fashion. A vaginal sponge stick was placed at this time, a Gaines catheter was placed. Attention to the abdomen was then carried out and perspective trocar sites were infiltrated with 0.5% Marcaine with epinephrine. An 8 mm infraumbilical incision was made. Veress needle was entered into the peritoneal cavity. The patient's pressure was noted to be less than 5 mmHg. The abdomen was insufflated with the patient's pressure of 15, approximately 4.5 L of carbon dioxide gas. Veress needle was then removed and then an 8-mm trocar was placed through the infraumbilical incision site. The robotic laparoscope was introduced through the trocar sleeve confirming proper entry. Additional bilateral lower quadrant 8 mm trocars were placed under laparoscopic guidance along with the right upper quadrant 5 mm bakery assistant port. The pelvis was inspected with the previously mentioned findings. The omental abdominal wall adhesion was taken down with bipolar fenestrated cautery and monopolar scissors. Hemostasis was confirmed. A small area of filmy adhesions of small bowel to the vaginal cuff line and these were incised in the filmy component with monopolar scissors and hemostasis was confirmed and the small bowel was released from the vaginal cuff. Then below in the posterior cul-de-sac, there was 3 x 5 cm pelvic cyst that was dark purple to blackish in color. This was grasped. A very thin stalk was excised it from the posterior cul-de-sac. The cyst was then incised and serosanguineous blood was drained and the cyst wall was brought up through the right upper quadrant bakery assistant port, sent to Pathology. The pelvis was irrigated and suctioned. All hemostasis was confirmed. There were no other abnormalities of note seen. The robot was then undocked. The excess carbon dioxide gas was released from the port sites. The trocars were removed and the trocar sites were closed with 4-0 Monocryl subcuticular along with Dermabond. Sponge stick was removed along with Gaines catheter. The patient was awakened and transferred to recovery room in stable condition. Job ID: [id number]
== END 2019-03-24 20:20 | disposition home or self-care (01) ==
LOC: SDC 10:55
PROVIDERS: ATTEND Obstetrics & Gynecology
PROC: 0WBF4ZZ Excision of Abdominal Wall, Percutaneous Endoscopic Approach (ICD-10-PCS; principal; 2019-03-24)
DX: D36.7 Benign neoplasm of other specified sites (principal); K66.0 Peritoneal adhesions (postprocedural) (postinfection); N94.10 Unspecified dyspareunia; I10 Essential (primary) hypertension; Z79.899 Other long term (current) drug therapy; Z88.0 Allergy status to penicillin; Z88.1 Allergy status to other antibiotic agents; Z90.710 Acquired absence of both cervix and uterus
CPT/HCPCS: 85027; 86850; 86900; 86901; 88307; J0670; J0690; J1100; J1200; J2001; J2405; J2550; J2704; J3010; J3490; S0028

== ENCOUNTER 2019-03-27 16:08 | Observation (INO) | payer BC ==
[2019-03-27 17:23] LABS: #Basophils 0.1 thou/uL (0.0-0.2); #Eosinphils 0.8 thou/uL (0.0-0.7); #Lymphocytes 3.8 thou/uL (1.20-3.40); #Monocytes 1.5 thou/uL (0.11-0.59); %Basophils 0.8 % (0.0-1.0); %Eosinophils 6.2 % (0.0-10.0); %Lymphocytes 28.7 % (21.0-51.0); %Monocytes 11.3 % (0.0-10.0); Hemoglobin 12.8 g/dL (12.0-16.0); Mean Corpuscular HGB CONC 32.2 g/dL (32.0-36.0); Mean Corpuscular Hemoglobin 28.1 pg (27.0-31.0); Mean Corpuscular Volume 87.1 fL (78.0-98.0); Mean Platelet Volume 7.9 fL (7.4-10.4); Platelet Count 243 thou/uL (130-400); RBC Distribution Width 13.9 % (11.5-14.5); Red Blood Cell (RBC) Count 4.55 mill/uL (4.20-5.40); White Blood Cell (WBC) Count 13.2 thou/uL (4.8-10.8)
[2019-03-27] MEDS ORDERED: Morphine 4 MG/ML VIAL ONE ×3 (17:37→19:30)
[2019-03-27] MEDS ORDERED: Ondansetron PF 4 MG/2 ML Vial ONE ×2 (17:37→21:12)
[2019-03-27 17:45] LABS: ALT (SGPT) 21 U/L (8-55); AST (SGOT) 20 U/L (5-34); Alkaline Phosphatase 59 U/L (40-150); Anion Gap 13 mmol/L (10-20); BUN (Urea Nitrogen) 15 mg/dL (7.0-18.7); Bilirubin, Total 0.3 mg/dL (0.2-1.2); Calc. Creatinine Clearance 0 mL/min (70-130); Calcium 9.6 mg/dL (7.8-10.44); Carbon Dioxide 25 mmol/L (22-29); Chloride 105 mmol/L (98-107); Estimated GFR-MDRD 74; Globulin 3.2 g/dL (2.4-3.5); Glucose 103 mg/dL (70-105); Lipase 60 U/L (8-78); Potassium 4.2 mmol/L (3.5-5.1); Protein, Total 7.2 g/dL (6.0-8.3); Sodium 139 mmol/L (136-145)
--- NOTE | 2019-03-27 18:29 | CT ---
EXAM: CT ABDOMEN AND PELVIS HISTORY: Pain and swelling. Recent pelvic cyst surgery. COMPARISON: 08/12/2017 Procedure: Multiple contiguous axial images were obtained and a CT of the abdomen and pelvis with IV contrast. C oronal reformats were performed. FINDINGS: Lower Chest: within normal limits. Vessels: Normal aorta. No aneurysm or dissection Abdomen: Portal vein:Patent Gallbladder: No calcified gallstones. Normal caliber wall. Liver: within normal limits. Pancreas: within normal limits. Stable upper normal main pancreatic duct Spleen: within normal limits. Adrenals: within normal limits. Kidneys: within normal limits. Peritoneum: No mesenteric mass, lymphadenopathy or fluid. There are small punctate foci of air in the anterior midline mesentery. There is dehiscent of the anterior abdominal wall without obvious bowel herniation. Punctate foci of air are noted just distal to the left abdominal rectus muscle. Sma ll focus of subcutaneous air is noted at the level of the umbilicus. Bowel: Limited evaluation due to technique. No evidence of small bowel obstruction. Unremarkable ileo cecal junction. Appendix is not appreciated. No inflammation of cecal apex. Scattered fecal material in a nondistended nondilated colon. Diverticulosis, without definite diverticulitis. Mesentery and Retroperitoneum: No enlarged mesenteric or retroperitoneal lymph nodes. Abdominal Wall: As above Pelvis: Reproductive Organs: Previous hysterectomy Pelvis within normal limits. Bladder: within normal limits. Bones: within normal limits. IMPRESSION: 1. Free air within the peritoneum, likely post operative. Subcutaneous emphysema, minimal is also li roberto iatrogenic. 2. No evidence of bowel obstruction. 3. Diverticulosis, without evidence of diverticulitis 4. No acute abnormality with a pelvis.
[2019-03-27 18:38] LABS: Bilirubin Negative (Negative); Blood, Urine Negative (Negative); Clarity CLEAR (Clear); Glucose, Urine (Dipstick) Negative (Negative); Leukocyte Negative (Negative); Nitrite Negative (Negative); Protein, Urine (Dipstick) Negative (Neg-Trace); Specific Gravity, Urine 1.018 (1.002-1.036); Urobilinogen 0.2 mg/dL (0.2-1.0)
[2019-03-27] MEDS ORDERED: Ketorolac Tromethamine 30 MG/ML VIAL ONE (19:30)
--- NOTE | 2019-03-27 19:34 | RAD ---
CHEST ONE VIEW: 03/27/19 HISTORY: Cough. COMPARISON: None. FINDINGS: Normal cardiac silhouette. Lungs and pleural spaces are clear. No pneumothorax or osseous abnormalit ies. IMPRESSION: No acute cardiopulmonary process. POS: [facility]
[2019-03-27] MEDS ORDERED: methylPREDNISolone Sod Succ/PF 125 MG/2 ML VIAL ONE (20:34)
[2019-03-27] MEDS ORDERED: Acetaminophen 325 MG TAB ONE (20:34)
[2019-03-27] MEDS ORDERED: Albuterol Sulfate 2.5 mg/0.5 ml Neb ONE (22:05)
[2019-03-27] MEDS ORDERED: Albuterol Sulfate 2.5 mg/3 ml Neb ONE (22:05)
[2019-03-28] MEDS ORDERED: Morphine 4 MG/ML VIAL SLOW IVP PRN (00:03)
[2019-03-28] MEDS ORDERED: Ketorolac Tromethamine 30 MG/ML VIAL IVP PRN (00:04)
[2019-03-28] MEDS ORDERED: Ondansetron ODT 4 MG TAB SL PRN (00:04)
[2019-03-28] MEDS ORDERED: Acetaminophen 325 MG TAB PO PRN (00:04)
[2019-03-28] MEDS ORDERED: Ondansetron PF 4 MG/2 ML Vial IVP PRN ×2 (00:04→21:14)
[2019-03-28 00:48] VITALS: BMI 29.6
[2019-03-28] MEDS ORDERED: traZODone HCl 50 MG TAB PO SCH ×3 (01:00→21:00)
[2019-03-28] MEDS ORDERED: Pramipexole Di-HCl 1 MG TAB PO SCH ×2 (01:00→21:00)
[2019-03-28] MEDS ORDERED: Melatonin 3 MG TAB PO SCH ×2 (01:00→21:00)
[2019-03-28] MEDS: Sodium Chloride 0.9% 1,000 ML IV SCH ×3 (01:07→07:48)
[2019-03-28] MEDS: ALPRAZolam 0.5 MG TAB PO PRN ×2 (01:09→16:46)
[2019-03-28] MEDS: diphenhydrAMINE 25 MG CAP PO PRN ×2 (01:09→22:04)
[2019-03-28] MEDS: Estradiol 1 MG TAB PO SCH (07:47)
[2019-03-28] MEDS: DULoxetine 60 MG CAP PO SCH (07:48)
[2019-03-28] MEDS: Carvedilol 6.25 MG TAB PO SCH ×2 (07:48→16:46)
[2019-03-28] MEDS: Furosemide 20 MG TAB PO SCH (08:55)
[2019-03-28] MEDS: Acetaminophen/Codeine 30-300mg Tablet PO PRN ×2 (08:57→19:39)
[2019-03-28] MEDS ORDERED: Calcium Carbonate 500 MG ChewTAB PO PRN (11:53)
[2019-03-28] MEDS: methylPREDNISolone Sod Succ 40 MG VIAL IVP SCH ×2 (15:10→22:04)
[2019-03-28] MEDS ORDERED: Morphine 2 MG/ML SYRINGE SLOW IVP SCH (21:15)
[2019-03-29] MEDS: Acetaminophen/Codeine 30-300mg Tablet PO PRN (05:25)
[2019-03-29] MEDS: ALPRAZolam 0.5 MG TAB PO PRN (05:25)
[2019-03-29] MEDS: methylPREDNISolone Sod Succ 40 MG VIAL IVP SCH (05:26)
[2019-03-29] MEDS: DULoxetine 60 MG CAP PO SCH (08:41)
[2019-03-29] MEDS: Furosemide 20 MG TAB PO SCH (08:41)
[2019-03-29] MEDS: Carvedilol 6.25 MG TAB PO SCH (08:41)
[2019-03-29] MEDS: Estradiol 1 MG TAB PO SCH (08:41)
[2019-03-29 11:55] VITALS: BP 124/64; TEMP 97.8
--- NOTE | 2019-03-30 03:25 | DIS ---
DATE OF ADMISSION: 03/27/2019 DATE OF DISCHARGE: 03/29/2019 FINAL DIAGNOSES: 1. Chronic obstructive pulmonary disease exacerbation, mild. 2. Postoperative abdominal pain. The patient recently had a cyst removed on Saturday just few days ago by Dr. Manzanares. 3. Asthma. 4. Restless legs syndrome. 5. Vocal cord dysfunction. 6. History of hypoglycemia. 7. History of non-ST elevation myocardial infarction. HOSPITAL COURSE: The patient was a 48-year-old female, who presented to the emergency room with complaints of some pelvic pain. Apparently, she had a pelvic cyst removed by Dr. Manzanares just few days ago and is still having some abdominal pain and she complained about some abdominal swelling and swelling in her lower extremities. She was evaluated by the emergency room and was found to have some exacerbation of her COPD/asthma with rales and wheezing. She got admitted to the hospital for further evaluation. She was given DuoNebs, morphine, and methylprednisolone. At the time of emergency room evaluation, her lab work showed a white count of 13.2, hemoglobin 12.8, hematocrit 39.6, platelet count is 243. Chemistry showed a BNP of 124.1, and the rest of chemistry was within normal limits. Urinalysis was within normal limits. She had CT of the abdomen and pelvis done at the time of emergency room visit, which showed free air within the peritoneum, likely postoperative. There was also subcutaneous emphysema, minimal. There was no evidence of bowel obstruction and there was some evidence for diverticulosis without evidence of diverticulitis. Her chest x-ray showed no acute cardiopulmonary process. She was given IV Solu-Medrol and DuoNebs. She improved. She had an episode of some nausea, vomiting, but the next day she tolerated food without any problems. Her vitals are stable. She is stable for discharge home on regular diet. ACTIVITIES: As tolerated. MEDICATIONS AT THE TIME OF DISCHARGE: 1. Prednisone 40 mg daily for 2 days, then 20 mg daily for 2 days, then 10 mg daily for 4 days. 2. She is going to continue her DuoNebs 4 times daily. 3. Alprazolam 0.5 mg t.i.d. p.r.n. 4. Calcium carbonate 500 mg p.r.n. 5. Carvedilol 6.25 mg twice daily. 6. Benadryl 25 mg q.6 hours p.r.n. 7. Cymbalta 60 mg daily. 8. Estrace 2 mg daily, 3 mg at bedtime p.r.n. as needed. 9. Mirapex 2 mg at bedtime. 10. Trazodone, which is Desyrel 50 mg at bedtime once daily. 11. Continue her montelukast 10 mg once daily. FOLLOWUP: She will follow up with her primary care physician in 1 week. Job ID: [id number]
--- NOTE | 2019-03-30 07:51 | HP ---
CHIEF COMPLAINT: Abdominal pain, shortness of breath. HISTORY OF PRESENT ILLNESS: The patient is a 48-year-old female, who was admitted to the hospital after she came to the emergency room and was found to have some abdominal discomfort and some shortness of breath. Apparently, she had cyst removed by Dr. Manzanares on the 24 of March from her right pelvis and she had some nausea, some vomiting, and fluid retention. She had some chills. No fever, though the patient was worse after the surgery gradually. PAST MEDICAL HISTORY: Positive for, 1. COPD. 2. Asthma. 3. Vocal cord dysfunction. 4. Restless legs syndrome. 5. Hypoglycemia. 6. History of non-ST elevation myocardial infarction. PAST SURGICAL HISTORY: 1. Appendectomy. 2. Hysterectomy. 3. ACDF, C5-C7 replaced. 4. Tonsillectomy. 5. Bladder suspension. 6. Removal of the cyst, I believe from her pelvic area just recently. PSYCHIATRIC HISTORY: Positive for anxiety. SOCIAL HISTORY: She denies any alcohol intake. She used to smoke, quit a month ago. She used to smoke 2 packs per day. She does not use any illicit drugs. ALLERGIES: DOXYCYCLINE, GEODON, HALDOL, LEVAQUIN, LORATADINE, PENICILLIN G, ZIPRASIDONE. MEDICATIONS: 1. Estradiol 2 mg once a day. 2. Alprazolam 0.5 mg q.8 hours p.r.n. 3. Tylenol No. 3 one to two tablets every 8 hours p.r.n. 4. Duloxetine 60 mg once a day. 5. Mirapex 0.5 mg at bedtime. 6. Tizanidine 2 mg tablets 1 to 2 tablets at bedtime. 7. Melatonin 3 mg at bedtime. 8. Nitroglycerin sublingual p.r.n. as needed. 9. Montelukast 10 mg once a day. 10. Carvedilol 6.25 mg twice a day. 11. Prednisone dose pack. FAMILY HISTORY: Her father at the age of 81 and he had cardiomyopathy. Mother had COPD and cancer and she passed when she was 79. Her cylinder machine operator, Dr. Grey. Primary doctor is Zander provider and surrogate decision maker is her , Regino Rodriguez. She is full code. REVIEW OF SYSTEMS: All 14 systems were reviewed and only positive findings, which are mentioned in HPI are positive. Rest of them are negative plus some easy bruising. PHYSICAL EXAMINATION: VITAL SIGNS: Blood pressure is 117/68, temperature is 98.5, pulse is 74, respirations 18, and O2 saturation is 91% on room air. HEENT: Head is atraumatic and normocephalic. Eyes are PERRLA. Sclerae are nonicteric. Oral mucosa is somewhat dry. NECK: Supple. LUNGS: Bilateral rales present especially at the back and wheezing bilaterally. HEART: S1 and S2 normal. No S3. No S4. ABDOMEN: Soft. Somewhat tender in the right area, where the surgery was. She has postop three entry points, which looks good. Bowel sounds are present, very active. EXTREMITIES: 1+ peripheral edema similar bilaterally. NEUROLOGICAL: She is alert and oriented x4. There is no any more deficit. Cranial nerves are intact. LABORATORY DATA: Labs showed white count of 13.2, hemoglobin 12.8, hematocrit 39.6, and platelet count is 243,000. Normal chemistry. BNP was 124. Normal urinalysis. IMAGING DATA: Chest x-ray did not show any acute abnormalities. CT of the abdomen and pelvis showed free air within the peritoneum, likely postoperative and subcutaneous emphysema minimal along with diverticulosis without evidence of diverticulitis. This was personally reviewed by me. EKG showed normal sinus rhythm with some flipped T-waves in the anterior and lateral precordial leads. IMPRESSION: 1. Abdominal pain, significantly improved since the time of admission. We are not really seeing any specific etiology of that. She seems to be doing much better. She tolerated food last night. 2. Chronic obstructive pulmonary disease, mild exacerbation. She is on room air. She is saturating 91%, although she has quite significant wheezing on both sides in her lungs. 3. Peripheral edema, per history and clinical presentation. We are going to start her on 20 mg of Lasix to see whether this is going to help. 4. Restless legs syndrome. We will continue her Mirapex. 5. Vocal cord dysfunction. 6. History of non-ST elevation myocardial infarction. 7. History of hypoglycemia. PLAN: Plan is admission for observation. Condition is fair. Activity is bedrest and bathroom privileges. IV Hep-Lock. Solu-Medrol 20 mg q.8 hours IV push. Lasix 20 mg p.o. daily. Continue her home medications. DVT prophylaxis with SCDs and she should be able to go home in the next 24 hours. Job ID: [id number]
--- NOTE | 2019-04-04 14:57 | EKG ---
Test Reason : ER INDICATION Blood Pressure : / mmHG Vent. Rate : 069 BPM Atrial Rate : 069 BPM P-R Int : 166 ms QRS Dur : 072 ms QT Int : 376 ms P-R-T Axes : 068 064 081 degrees QTc Int : 402 ms Normal sinus rhythm Abnormal ECG Confirmed by SOLA RIVAS MD ([id number]), purchase request editor ARABELLA VALENTIN ([id number]) on 04/04/2019 2:57:12 PM Referred By: Confirmed By:SOLA RIVAS MD
== END 2019-03-29 12:16 | disposition home or self-care (01) ==
LOC: ERS 16:08 → T4-B 21:55
PROVIDERS: ADMIT Hospitalist; ATTEND Hospitalist
DX: J44.1 Chronic obstructive pulmonary disease with (acute) exacerbation (principal); G89.18 Other acute postprocedural pain; R10.2 Pelvic and perineal pain; G25.81 Restless legs syndrome; I25.2 Old myocardial infarction; J38.3 Other diseases of vocal cords; F41.9 Anxiety disorder, unspecified; R60.0 Localized edema; K57.90 Diverticulosis of intestine, part unspecified, without perforation or abscess without bleeding; Z87.891 Personal history of nicotine dependence; Z79.899 Other long term (current) drug therapy; Z88.0 Allergy status to penicillin; Z88.1 Allergy status to other antibiotic agents; Z88.8 Allergy status to other drugs, medicaments and biological substances
CPT/HCPCS: 36415; 71045; 74177; 80053; 81003; 83690; 83880; 85025; 93005; 94640; 94644; 96374; 96375; 96376; G0378; J1885; J2270; J2405; J2920; J2930; J7611; J7620; Q0163; Q9966

== ENCOUNTER 2019-04-22 17:51 | Inpatient (IN) | payer BC ==
[2019-04-22] MEDS ORDERED: Naloxone HCl 0.4 mg/ml Vial ONE (17:54)
[2019-04-22] MEDS ORDERED: Furosemide 40 MG/4 ML VIAL ONE (18:05)
[2019-04-22 18:14] LABS: Actual Bicarbonate (HCO3a) 23.4 mEq/L (22-28); Base Excess (BEa) -1.7 mEq/L (-2.0 to +3.0); O2 Tension (PaO2) 79.9 mmHg (80.0-100.0); pH, Arterial 7.38 (7.35-7.45)
[2019-04-22 18:15] LABS: Carboxyhemoglobin (COHb) 0.9 gm% (0.0-3.0); Hemoglobin (Hb) 14.4 g/dL (12.0-16.0)
[2019-04-22 18:16] LABS: Analyzer IN Cardio ER; Calcium, Ionized 1.14 mmol/L (1.12-1.30); Potassium - ABG Lab 4.16 mmol/L (3.70-5.30); Puncture Site RRA
[2019-04-22 18:24] LABS: #Lymphocytes 0.7 thou/uL (1.20-3.40); #Monocytes 0.1 thou/uL (0.11-0.59); #Neutrophils 8.5 thou/uL (1.40-6.50); %Basophils 0.5 % (0.0-1.0); %Eosinophils 0.1 % (0.0-10.0); %Lymphocytes 7.9 % (21.0-51.0); %Monocytes 0.6 % (0.0-10.0); %Neutrophils 90.9 % (42.0-75.0); Hemoglobin 13.7 g/dL (12.0-16.0); Mean Corpuscular HGB CONC 32.8 g/dL (32.0-36.0); Mean Corpuscular Hemoglobin 28.6 pg (27.0-31.0); Mean Corpuscular Volume 87.1 fL (78.0-98.0); Mean Platelet Volume 7.6 fL (7.4-10.4); Platelet Count 239 thou/uL (130-400); RBC Distribution Width 14.5 % (11.5-14.5); White Blood Cell (WBC) Count 9.3 thou/uL (4.8-10.8)
--- NOTE | 2019-04-22 18:36 | RAD ---
PORTABLE AP CHEST X-RAY: 04/22/19 HISTORY: Shortness of breath and COPD exacerbation. COMPARISON: 03/27/19. FINDINGS: The cardiac silhouette and pulmonary vasculature are within normal limits. The lungs remain clear. Po stsurgical change in cervical spine are again seen. No other interval change. IMPRESSION: No acute cardiopulmonary process. POS: [facility]
[2019-04-22 18:53] LABS: Troponin I Less than 0.010 ng/mL (< 0.028)
[2019-04-22 18:54] LABS: ALT (SGPT) 20 U/L (8-55); AST (SGOT) 18 U/L (5-34); Albumin 4.2 g/dL (3.5-5.0); Alkaline Phosphatase 65 U/L (40-150); Anion Gap 13 mmol/L (10-20); BUN (Urea Nitrogen) 11 mg/dL (7.0-18.7); Bilirubin, Total 0.5 mg/dL (0.2-1.2); Calc. Creatinine Clearance 0 mL/min (70-130); Carbon Dioxide 21 mmol/L (22-29); Chloride 108 mmol/L (98-107); Estimated GFR-MDRD 75; Globulin 3.1 g/dL (2.4-3.5); Glucose 152 mg/dL (70-105); Potassium 4.2 mmol/L (3.5-5.1); Protein, Total 7.3 g/dL (6.0-8.3); Sodium 138 mmol/L (136-145)
[2019-04-22] MEDS ORDERED: Senokot S 8.6-50 MG TAB PO PRN (19:00)
[2019-04-22] MEDS ORDERED: HumaLOG 300 UNITS/3 ML VIAL SC PRN ×2 (19:00)
[2019-04-22] MEDS ORDERED: Ondansetron PF 4 MG/2 ML Vial IVP PRN (19:00)
[2019-04-22] MEDS ORDERED: Dextrose 5% in Water 1,000 ML IV PRN (19:00)
[2019-04-22] MEDS ORDERED: Guaifenesin DM 100-10/5 ML UDCUP PO PRN (19:00)
[2019-04-22] MEDS ORDERED: Acetaminophen 325 MG TAB PO PRN (19:00)
[2019-04-22] MEDS ORDERED: Dextrose 50% Abboject 50 ML SYRINGE SLOW IVP PRN (19:00)
[2019-04-22] MEDS ORDERED: Bisacodyl 10 MG SUPP PR PRN (19:00)
[2019-04-22 19:29] LABS: Acetaminophen Less than 6.0 mcg/mL (10.0-30.0); Alcohol Less than 10 mg/dL (Less than 10); Salicylate Less than 8.0 mg/dL (15.0-30.0)
--- NOTE | 2019-04-22 19:59 | HP ---
REASON FOR ADMISSION: Acute respiratory failure with hypoxia, COPD exacerbation. HISTORY OF PRESENTING ILLNESS: The patient apparently had gone to [facility] Emergency Room for complaints of shortness of breath. She was diagnosed with COPD exacerbation and the plan was to transfer her to medical floor here. En route in the EMS, the patient got tired and was placed on CPAP. She was also suggesting EMS that she needs to be tubed per ER staff. The decision was made to upgrade her to IMCU. On arrival in ER, the patient was taking very shallow breaths. She in fact stopped breathing through the CPAP. She became lethargic and plans were on to intubate her, but the patient woke up. She has been saturating 95% on room air in the ER. The patient falls asleep in between and take shallow breaths. She was given a dose of Narcan, had minimal response to it. I have watched her for nearly 30 minutes in the ER. The patient has good SpO2 waveforms and is saturating around 95%. She has had a blood gas done, which shows pH of 7.38, pCO2 of 41, pO2 of 79. Has no complaints of chest pain or palpitation. PAST MEDICAL AND SURGICAL HISTORY: History of vocal cord dysfunction, COPD, has had recent pelvic cyst removed on the 7th, history of asthma, restless legs syndrome , history of coronary spasm, appendectomy, hysterectomy, C5-C7 spine surgery, tonsillectomy, and bladder suspension surgery. CURRENT MEDICATIONS: 1. Estradiol 2 mg daily. 2. Alprazolam 0.5 mg q.8 hourly p.r.n. 3. Tylenol No. 3 one to two tablets q.8 hourly p.r.n. 4. Duloxetine 60 mg daily. 5. Mirapex 0.5 mg p.o. at bedtime. 6. Tizanidine 2 mg one to two tablets p.o. at bedtime. 7. Melatonin 3 mg p.o. at bedtime. 8. Singulair 10 mg p.o. daily. 9. Carvedilol 6.25 mg p.o. daily. She was discharged on a prednisone Dosepak on the 12th of last month. The patient also takes trazodone 50 mg p.o. at bedtime. ALLERGIES: SHE IS ALLERGIC TO GEODON, DOXYCYCLINE, HALDOL, LEVAQUIN, LORATADINE , AND PENICILLIN. PERSONAL HISTORY: Quit smoking recently. Does not abuse alcohol or drugs. FAMILY HISTORY: Father at the age of 81, he had history of cardiomyopathy. Mother had history of COPD and cancer, she at the age of 79 years. CODE STATUS: Full. Power of real estate attorney is her , Mr. Jose Rodriguez. REVIEW OF SYSTEMS: Cannot be accurately obtained as the patient is lethargic and is falling asleep. PHYSICAL EXAMINATION: GENERAL: The patient is a 48-year-old female, who is currently not in any acute distress, but is very lethargic. VITAL SIGNS: Blood pressure 136/74, pulse 80 per minute, respiratory rate 14 per minute, and saturating 95% on room air. The patient is afebrile. NECK: Supple. No elevated JVD. HEENT: Eyes; extraocular muscles intact. Pupils reacting to light. Oral cavity, mucous membranes are dry. No exudates or congestion. CARDIOVASCULAR: S1 and S2 heard, regular rhythm. RESPIRATORY: Air entry 1+ bilateral. Scattered rhonchi plus. The patient has husky voice likely due to history of vocal cord dysfunction. No stridor noted. ABDOMEN: Soft. Bowel sounds heard. No tenderness, rigidity, or guarding. EXTREMITIES: No peripheral edema or calf tenderness. VASCULAR: Peripheral pulses 1+ bilateral. No ischemic ulcerations or gangrene. CENTRAL NERVOUS SYSTEM: The patient is lethargic, but moves all 4 extremities. PSYCHIATRIC: Cannot be accurately assessed as she is very lethargic and sleepy at present. LABORATORY DATA: White count of 9, hemoglobin and hematocrit of 13 and 41, platelet count 239 with 90% neutrophils, MCV is 87. Blood gas done shows a pH of 7.38, pCO2 of 41, pO2 of 79, this was on room air. Serum bicarb 21, BUN 11, creatinine 0.8 , and serum glucose 152. Liver enzymes within normal limits. BNP is 61. Troponin is negative. Chest x-ray done shows no acute cardiopulmonary process. CLINICAL IMPRESSION AND PLAN: The patient will be admitted to [facility] for likely chronic obstructive pulmonary disease exacerbation, acute encephalopathy likely due to polypharmacy, initial acute respiratory failure with hypoxia resolved. We will place her on 2 L nasal cannula at present. She will be on DuoNeb, small dose of steroids. We will closely monitor her for any respiratory depression. She had very minimal response to Narcan in the ER. We will obtain a urine drug screen as well. We will continue her Coreg and Singulair for now. Rest of her medications will be added once the patient is more awake and alert. Pulmonary consultation with Dr. Joseph who is graves registration specialist today will be requested. Job ID: [id number] MTDD
[2019-04-22 20:34] VITALS: BMI 27.7
[2019-04-22 21:34] LABS: Troponin I Less than 0.010 ng/mL (< 0.028)
[2019-04-22 21:57] LABS: Amphetamine Not Detected (NotDetected); Barbiturates Screen Not Detected (NotDetected); Benzodiazepine Screen Not Detected (NotDetected); Cocaine Metabolite Screen Not Detected (NotDetected); Medtox Control Line Valid? VALID (VALID); Medtox Reader # READER 1; Methadone Not Detected (NotDetected); Methamphetamine Not Detected (NotDetected); Opiate Screen Detected (NotDetected); Oxycodone Screen Not Detected (NotDetected); Phencyclidine (PCP) Not Detected (NotDetected); THC/Cannabinoid Screen Not Detected (NotDetected); Tricyclic Screen Not Detected (NotDetected)
[2019-04-22] MEDS: Famotidine 20 MG TAB PO SCH (23:29)
[2019-04-22] MEDS: Acetaminophen/Codeine 30-300mg Tablet PO PRN (23:29)
[2019-04-22] MEDS: methylPREDNISolone Sod Succ 40 MG VIAL IVP SCH (23:33)
--- NOTE | 2019-04-23 | PDOC.EVN ---
Event Note - Event Note Event Note: Code green activated pt having the same symptoms she has had in previous admissions c/o of having difficulty breathing , all vitals are within normal limits, saturation is 98%, she is already receiving copd treatment , will continue to monitor in IMCU, pt's complaints does not match clinical findings at this moment.
[2019-04-23] MEDS: ALPRAZolam 0.25 MG TAB PO PRN ×3 (00:55→18:47)
[2019-04-23] MEDS ORDERED: Clopidogrel Bisulfate 75 MG TAB ONE (01:01)
[2019-04-23] MEDS: Pramipexole Di-HCl 1 MG TAB PO SCH ×2 (01:11→21:02)
[2019-04-23] MEDS ORDERED: Acetaminophen/Codeine 30-300mg Tablet PO SCH (03:00)
[2019-04-23] MEDS: methylPREDNISolone Sod Succ 40 MG VIAL IVP SCH ×3 (06:06→21:01)
[2019-04-23] MEDS: Enoxaparin Sodium 40 MG/0.4 ML SYRINGE SC SCH (09:23)
[2019-04-23] MEDS: Carvedilol 6.25 MG TAB PO SCH ×2 (09:23→16:36)
[2019-04-23] MEDS: Montelukast Sodium 10 mg Tablet PO SCH (09:23)
[2019-04-23] MEDS: Famotidine 20 MG TAB PO SCH ×2 (09:23→21:01)
--- NOTE | 2019-04-23 12:26 | PDOC.PN ---
- Subjective Encounter Start Date: 04/23/19 Encounter Start Time: 07:45 Subjective: no new complaints -: vitals are stable, not in distress, spo2 is good -: has chronic husky voice due to vocal cord dysfunction - Objective Resuscitation Status - Order Detail: 04/22/19 18:55 Resuscitation Status Routine Resuscitation Status: FULL: Full Resuscitation MAR Reviewed: Yes Vital Signs & Weight: Vital Signs (12 hours) Temp Pulse Pulse Pulse Resp BP BP 04/23/19 11:16 98.6 F 04/23/19 10:08 73 70 132/78 129/77 04/23/19 07:53 04/23/19 07:49 98.2 F 04/23/19 06:57 91 20 04/23/19 04:00 98.2 F Pulse Ox Pulse Ox Pulse Ox 04/23/19 11:16 04/23/19 10:08 96 96 04/23/19 07:53 96 04/23/19 07:49 04/23/19 06:57 04/23/19 04:00 Weight Weight 177 lb 1.6 oz Most Recent Monitor Data Heart Rate from ECG 63 NIBP 130/71 NIBP BP-Mean 90 Respiration from ECG 15 SpO2 97 I&O: 04/22/19 04/23/19 04/24/19 06:59 06:59 06:59 Intake Total 720 Output Total 1375 600 Balance -655 -600 Result Diagrams: 04/22/19 18:17 04/22/19 18:17 Additional Labs: Accuchecks 04/23/19 04/23/19 04/22/19 05:59 03:03 19:55 POC Glucose 160 H 154 H 154 H Phys Exam - Physical Examination HEENT: PERRLA, moist MMs Neck: no JVD, supple Respiratory: no wheezing, no rales rhonchi+ Cardiovascular: RRR, no significant murmur Gastrointestinal: soft, non-tender Musculoskeletal: no edema, pulses present Neurological: non-focal, moves all 4 limbs Psychiatric: A&O x 3 Dx/Plan (1) COPD exacerbation Code(s): J44.1 - CHRONIC OBSTRUCTIVE PULMONARY DISEASE W (ACUTE) EXACERBATION Status: Acute (2) Acute and chronic respiratory failure with hypoxia Code(s): J96.21 - ACUTE AND CHRONIC RESPIRATORY FAILURE WITH HYPOXIA Status: Resolved (3) Coronary artery spasm Code(s): I20.1 - ANGINA PECTORIS WITH DOCUMENTED SPASM Status: Resolved Comment: cath 02/12/2019 showed mild cad with no flow limiting lesion (4) Anxiety and depression Code(s): F41.9 - ANXIETY DISORDER, UNSPECIFIED; F32.9 - MAJOR DEPRESSIVE DISORDER, SINGLE EPISODE, UNSPECIFIED Status: Chronic Comment: stable (5) Fibromyalgia Status: Chronic (6) LUISA (obstructive sleep apnea) Code(s): G47.33 - OBSTRUCTIVE SLEEP APNEA (ADULT) (PEDIATRIC) Status: Chronic (7) Restless leg syndrome Status: Chronic (8) Tobacco dependence Code(s): F17.200 - NICOTINE DEPENDENCE, UNSPECIFIED, UNCOMPLICATED Status: Chronic Comment: is on a patch (9) Vocal cord dysfunction Code(s): J38.3 - OTHER DISEASES OF VOCAL CORDS Status: Chronic (10) Chronic pain syndrome Code(s): G89.4 - CHRONIC PAIN SYNDROME Status: Chronic - Plan hemostable -: continue steroids, nebs, oxygen by nasal canula prn -: tx to medical floor -: on mirapex, xanax, tylenol 3. -: To ambulate as tolerated, may dc in am * . Review of Systems - Medications/Allergies Allergies/Adverse Reactions: Allergies Allergy/AdvReac Type Severity Reaction Status Date / Time ziprasidone [From Geodon] Allergy Severe Verified 04/23/19 04:48 Penicillins Allergy Intermediate Hives Verified 04/23/19 04:48 doxycycline Allergy Hives Verified 04/23/19 04:48 haloperidol [From Haldol] Allergy Verified 04/23/19 04:48 ketamine Allergy Rash Verified 04/23/19 04:59 levofloxacin [From Levaquin] Allergy Hives Verified 04/23/19 04:48 loratadine [From Claritin] Allergy Rash Verified 04/23/19 04:48 penicillin G Allergy Verified 04/23/19 04:48 Medications: Current Medications Acetaminophen/Codeine Phosphate (Tylenol #3) 1 tab PO Q8HR PRN PRN Reason: Moderate Pain (4-6) Last Admin: 04/22/19 23:29 Dose: 1 tab Acetaminophen/Codeine Phosphate (Tylenol #3) 2 tab PO Q8HR PRN PRN Reason: Moderate to Severe Pain (6-10) Albuterol/Ipratropium (Duoneb) 3 ml NEB [id number] [facility] Last Admin: 04/23/19 06:57 Dose: 3 ml Alprazolam (Xanax) 0.25 mg PO TID PRN PRN Reason: Anxiety Last Admin: 04/23/19 11:20 Dose: 0.25 mg Bisacodyl (Dulcolax) 10 mg IN DAILYPRN PRN PRN Reason: Constipation Carvedilol (Coreg) 6.25 mg PO BID-[facility] Last Admin: 04/23/19 09:23 Dose: 6.25 mg Dextrose/Water (Dextrose 50%) 25 gm SLOW IVP PRN PRN PRN Reason: Hypoglycemia Enoxaparin Sodium (Lovenox) 40 mg SC 0900 [facility] Last Admin: 04/23/19 09:23 Dose: 40 mg Famotidine (Pepcid) 20 mg PO BID [facility] Last Admin: 04/23/19 09:23 Dose: 20 mg Glucagon (Glucagon) 1 mg IM PRN PRN PRN Reason: Hypoglycemia Guaifenesin/Dextromethorphan (Robitussin Dm) 15 ml PO Q4H PRN PRN Reason: Cough Dextrose/Water (D5w) 1,000 mls @ 0 mls/hr IV .Q0M PRN PRN Reason: Hypoglycemia Insulin Human Lispro (Humalog) 0 units SC .MILD SLIDING SCALE PRN PRN Reason: Mild Correctional Scale Insulin Human Lispro (Humalog) 0 units SC .BEDTIME SLIDING SC PRN PRN Reason: Bedtime Correctional Scale Melatonin (Melatonin) [address] [facility] Last Admin: 04/23/19 01:13 Dose: 3 mg Methylprednisolone Sodium Succinate (Solu-Medrol) 20 mg IVP Q8HR [facility] Last Admin: 04/23/19 06:06 Dose: 20 mg Montelukast Sodium (Singulair) 10 mg PO DAILY [facility] Last Admin: 04/23/19 09:23 Dose: 10 mg Ondansetron HCl (Zofran) 4 mg IVP Q6H PRN PRN Reason: Nausea/Vomiting Pramipexole Dihydrochloride (Mirapex) 1 mg PO HS [facility] Last Admin: 04/23/19 01:11 Dose: 1 mg Senna/Docusate Sodium (Senokot S) 2 tab PO BIDPRN PRN PRN Reason: Constipation Sodium Chloride (Flush - Normal Saline) 10 ml IVF Q12HR [place] Last Admin: 04/23/19 09:24 Dose: 10 ml Sodium Chloride (Flush - Normal Saline) 10 ml IVF PRN PRN PRN Reason: Saline Flush
[2019-04-23] MEDS: Acetaminophen/Codeine 30-300mg Tablet PO PRN ×2 (13:13→22:20)
[2019-04-23] MEDS ORDERED: Magnesium 2 GM/50 ML 2 GM in Premix Bag 1 BAG IVPB SCH (15:30)
[2019-04-23] MEDS: Mometasone/Formoterol 120 PUFF INHALER INH SCH (18:47)
[2019-04-23] MEDS ORDERED: Melatonin 3 MG TAB PO SCH (21:00)
[2019-04-23] MEDS ORDERED: Nicotine 21 MG PATCH TOP SCH (21:30)
[2019-04-23] MEDS: traZODone HCl 50 MG TAB PO SCH ×3 (22:20→22:23)
[2019-04-24] MEDS: methylPREDNISolone Sod Succ 40 MG VIAL IVP SCH (06:42)
[2019-04-24] MEDS: Acetaminophen/Codeine 30-300mg Tablet PO PRN (06:43)
[2019-04-24 07:44] VITALS: TEMP 97.3
--- NOTE | 2019-04-24 07:50 | CON ---
DATE OF CONSULTATION: HISTORY OF PRESENT ILLNESS: Mely Rodriguez is a 48-year-old female who sees Dr. Grey, on the B side, B11, having difficulty breathing, coughing and congestion. Yesterday tonya wheat was called in, though her sats were 97%, she received neb treatments and steroids. She has been in the hospital now for since yesterday evening 6 p.m. She has had further shortness of breath and cough, unresponsive to usual home medication. Received Solu-Medrol 3 neb treatments and apparently her sats dropped in the 80s while in the ER. She received IV fluids. PAST MEDICAL HISTORY: Extensively outlined, pertinent for diabetes, COPD, asthma, anxiety, depression, coronary artery disease, myocardial infarction. PAST SURGICAL HISTORY: Recent surgical procedure done by [employer]. Previous hysterectomy. Cyst in the right pelvic area. HOME MEDICATIONS: Includes, 1. Chantix. 2. Trazodone 50. 3. Tizanidine. 4. Nitrostat. 5. Singulair 10. 6. Melatonin. 7. Lasix 20. 8. Cymbalta 60. 9. Coreg 6.25. 10. Albuterol. 11. Xanax. ALLERGIES: PENICILLIN, GEODON, HALDOL, LEVAQUIN, CLARITIN, PENICILLIN G. HABITS: Ongoing tobacco abuse. REVIEW OF SYSTEMS: Ten-point negative. PHYSICAL EXAMINATION: VITAL SIGNS: Sats are 97%, pulse 100, respiratory rate 20, blood pressure . CHEST: Extensive wheezing and crackles. CARDIAC: Normal S1 and S2. No gallops. ABDOMEN: No masses. IMAGING STUDIES: Chest x-ray was clear. LABORATORY DATA: Glucose is elevated. Drug screen was positive for opiates. White count 9000, H and H 13 and 43. Chemistry profile shows lytes are normal. IMPRESSION AND PLAN: 1. Chronic obstructive pulmonary disease, asthma exacerbation. 2. Major anxiety. 3. Tobacco abuse. 4. She was told to bring her home nocturnal BiPAP. Added magnesium. Continue steroids. Added Dulera. Continue aggressive neb treatments. We will notify, Dr. Grey, who has seen her in the past for her sleep apnea and chronic lung disease. Consultation note, 70 minutes, 50% direct patient. Job ID: [id number]
--- NOTE | 2019-04-24 07:57 | PRG ---
DATE OF SERVICE: 04/24/2019 SUBJECTIVE: Ms. Rodriguez is adamant that she wants to go home. She feels better. She says that she hates being in this hospital because she feels like she is made fun of. OBJECTIVE: VITAL SIGNS: Her temperature is 98, pulse 62, O2 saturation 96% on room air, respiratory rate 16, blood pressure 137/90. HEENT: Unremarkable. NECK: No JVD. LUNGS: She has mild end-expiratory wheezing bilaterally. CARDIAC: S1 and S2. Regular. ABDOMEN: Soft. EXTREMITIES: No edema. LABORATORY DATA: No new labs were done today. ASSESSMENT: 1. Chronic obstructive pulmonary disease with exacerbation. 2. History of vocal cord dysfunction. 3. History of coronary vasospasm. PLAN: I think she is probably safe to go home. She says prednisone does not work for her. I have suggested we try Decadron. I would give her 4 mg twice daily for 3 days, then 2 mg twice daily for 3 days, then 1 mg twice daily for 3 days, and then stop. I will see if my office can arrange for her to get overnight pulse oximetry as an outpatient to see if she would for home O2 in the future. She will continue CPAP. She will continue the remainder of her home medications. In the future, she will probably seek treatment at another hospital. Job ID: [id number]
[2019-04-24] MEDS: Mometasone/Formoterol 120 PUFF INHALER INH SCH (08:27)
[2019-04-24] MEDS ORDERED: Dexamethasone 4 MG TAB PO SCH (09:00)
[2019-04-24] MEDS ORDERED: traZODone HCl 50 MG TAB PO SCH (09:00)
[2019-04-24] MEDS ORDERED: Estradiol 1 MG TAB PO SCH (09:00)
[2019-04-24] MEDS: Carvedilol 6.25 MG TAB PO SCH (09:00)
[2019-04-24] MEDS: Montelukast Sodium 10 mg Tablet PO SCH (09:00)
[2019-04-24] MEDS: Famotidine 20 MG TAB PO SCH (09:02)
[2019-04-24] MEDS: Enoxaparin Sodium 40 MG/0.4 ML SYRINGE SC SCH (09:03)
[2019-04-24 09:04] VITALS: BP 129/74
--- NOTE | 2019-04-25 04:50 | DIS ---
DATE OF ADMISSION: 04/22/2019 DATE OF DISCHARGE: 04/24/2019 PRIMARY CARE PROVIDER: Dr. Melvina Copeland. DISCHARGE DIAGNOSES: 1. Acute on chronic hypoxic respiratory failure. 2. Chronic obstructive pulmonary disease exacerbation. CONDITION OF PATIENT ON THE DAY OF DISCHARGE: Stable. I assessed Ms. Rodriguez on the day of discharge. She denies any chest pain or shortness of breath. Vital signs are stable. S1 and S2 are heard, regular. She has occasional expiratory wheeze. DISCHARGE MEDICATIONS: In addition to her pre-admission home medications as dictated by Dr. Johnson in his history and physical note dated April 22, 2019, she is being discharged on dexamethasone 4 mg 2 times a day for 3 days, then 2 mg 2 times a day for 3 days, and then 1 mg 2 times a day for 3 days and then stop. CONSULTATIONS DURING THIS HOSPITALIZATION: Pulmonology, Jamie Lincoln MD HOSPITAL COURSE: Ms. Rodriguez is a pleasant 48-year-old lady, who was admitted to [facility] on April 22, 2019, for acute on chronic hypoxic respiratory failure secondary to chronic obstructive pulmonary disease exacerbation. Following admission, she was transferred to [facility] because of difficulty breathing and sensation of throat closing up. She was seen by Pulmonary and Critical Care Medicine. She improved with oxygen and steroids. She has been cleared for discharge by Pulmonary Service. Many thanks for allowing me to participate in your patient's care. Please feel free to contact me with any questions or concerns. DISCHARGE DESTINATION: Home. TIME SPENT: Total amount of time spent coordinating this discharge: 31 minutes. Job ID: [id number]
== END 2019-04-24 09:47 | disposition home or self-care (01) | DRG 189 ==
LOC: ERS 17:51 → IMCU/EMU 18:00
PROVIDERS: ADMIT Internal Medicine; ATTEND Internal Medicine
DX: J96.21 Acute and chronic respiratory failure with hypoxia (principal); G92 Toxic encephalopathy; J44.1 Chronic obstructive pulmonary disease with (acute) exacerbation; I20.1 Angina pectoris with documented spasm; J38.3 Other diseases of vocal cords; F41.9 Anxiety disorder, unspecified; F32.9 Major depressive disorder, single episode, unspecified; M79.7 Fibromyalgia; G47.33 Obstructive sleep apnea (adult) (pediatric); G25.81 Restless legs syndrome; F17.200 Nicotine dependence, unspecified, uncomplicated; G89.4 Chronic pain syndrome; E11.9 Type 2 diabetes mellitus without complications; I25.2 Old myocardial infarction; Z90.49 Acquired absence of other specified parts of digestive tract; Z90.710 Acquired absence of both cervix and uterus; Z90.89 Acquired absence of other organs; Z88.0 Allergy status to penicillin; Z88.1 Allergy status to other antibiotic agents
CPT/HCPCS: 36415; 36416; 71045; 80053; 80306; 80307; 82805; 83880; 84484; 85025; 87040; 93005; 94760; 96374; 96375; J1650; J1940; J2310; J2920; J3475; J7620; J8540

== ENCOUNTER 2019-05-15 12:04 | Inpatient (IN) | payer BC ==
[2019-05-15] MEDS ORDERED: Nitroglycerin 2% Ointment 1 INCH/1 GM Packet ONE (12:38)
[2019-05-15] MEDS ORDERED: Magnesium 2 GM/50 ML BAG (IN WATER) ONE (12:38)
[2019-05-15] MEDS ORDERED: methylPREDNISolone Sod Succ/PF 125 MG/2 ML VIAL ONE (12:38)
[2019-05-15 12:45] LABS: #Basophils 0.1 thou/uL (0.0-0.2); #Eosinphils 0.4 thou/uL (0.0-0.7); #Lymphocytes 3.8 thou/uL (1.20-3.40); #Monocytes 1.2 thou/uL (0.11-0.59); %Basophils 0.9 % (0.0-1.0); %Eosinophils 2.7 % (0.0-10.0); %Lymphocytes 28.4 % (21.0-51.0); %Monocytes 8.7 % (0.0-10.0); %Neutrophils 59.4 % (42.0-75.0); Hemoglobin 13.6 g/dL (12.0-16.0); Mean Corpuscular Hemoglobin 27.6 pg (27.0-31.0); Mean Corpuscular Volume 86.3 fL (78.0-98.0); Mean Platelet Volume 7.9 fL (7.4-10.4); Platelet Count 253 thou/uL (130-400); RBC Distribution Width 14.8 % (11.5-14.5); Red Blood Cell (RBC) Count 4.94 mill/uL (4.20-5.40); White Blood Cell (WBC) Count 13.4 thou/uL (4.8-10.8)
--- NOTE | 2019-05-15 13:04 | RAD ---
Chest one view HISTORY: Chest pain. COMPARISON: 04/22/2019. FINDINGS: Cardiac silhouette is magnified by projection. Pulmonary vasculature is unremarkable. Media stinum is midline. Postoperative changes cervical spine. No confluent airspace consolidation or evidence of pneumothorax. IMPRESSION: No active cardiopulmonary abnormalities are demonstrated.
[2019-05-15 13:16] LABS: ALT (SGPT) 20 U/L (8-55); AST (SGOT) 18 U/L (5-34); Albumin 3.7 g/dL (3.5-5.0); Alkaline Phosphatase 63 U/L (40-150); Anion Gap 15 mmol/L (10-20); BUN (Urea Nitrogen) 14 mg/dL (7.0-18.7); Bilirubin, Total 0.3 mg/dL (0.2-1.2); Calc. Creatinine Clearance 0 mL/min (70-130); Calcium 9.3 mg/dL (7.8-10.44); Carbon Dioxide 16 mmol/L (22-29); Chloride 109 mmol/L (98-107); Estimated GFR-MDRD 81; Globulin 3.3 g/dL (2.4-3.5); Glucose 91 mg/dL (70-105); Lipase 173 U/L (8-78); Potassium 4.3 mmol/L (3.5-5.1); Sodium 136 mmol/L (136-145)
[2019-05-15] MEDS ORDERED: Acetaminophen 500 MG TAB ONE (13:19)
[2019-05-15] MEDS ORDERED: Morphine 4 MG/ML VIAL ONE ×2 (15:12→17:15)
--- NOTE | 2019-05-15 15:17 | ULT ---
ULTRASOUND ABDOMEN LIMITED: (RIGHT UPPER QUADRANT) DATE: 05/15/19 HISTORY: 48-year-old female with right upper quadrant abdominal pain. FINDINGS: Gallbladder: Normal wall thickness. No gallstones or sludge. Common duct: 3 mm. Liver: Diffusely increased echogenicity consistent with fatty liver. Pancreas: Nonspecific sonographic appearance of head and body. Tail not visualized. Tiny amount of fr ee fluid between the body of the pancreas and left lobe of the liver. Right kidney: No hydronephrosis. IMPRESSION: 1. Hepatic steatosis. 2. Minimal, tiny amount of ascites. 3. No sonographic evidence of cholelithiasis or acute cholecystitis. EMILY Vickers POS: GRACIELA
[2019-05-15 17:22] LABS: Troponin I Less than 0.010 ng/mL (< 0.028)
[2019-05-15] MEDS ORDERED: Acetaminophen 325 MG TAB PO PRN (18:25)
[2019-05-15] MEDS ORDERED: Ondansetron ODT 4 MG TAB PO PRN (18:25)
[2019-05-15] MEDS ORDERED: Ondansetron PF 4 MG/2 ML Vial IVP PRN (18:25)
[2019-05-15] MEDS ORDERED: Acetaminophen 650 MG Suppository PR PRN (18:25)
[2019-05-15] MEDS ORDERED: Senokot S 8.6-50 MG TAB PO PRN (18:25)
[2019-05-15] MEDS ORDERED: Nitroglycerin 0.4 MG TAB (25 Tab Bottle) SL PRN (18:38)
[2019-05-15 19:31] VITALS: BMI 27.9
[2019-05-15] MEDS ORDERED: Sodium Chloride 0.9% 1,000 ML IV SCH (19:37)
[2019-05-15 20:07] LABS: Troponin I Less than 0.010 ng/mL (< 0.028)
[2019-05-15 20:13] LABS: Bilirubin Negative (Negative); Blood, Urine Negative (Negative); Clarity CLOUDY (Clear); Glucose, Urine (Dipstick) Negative (Negative); Leukocyte Negative (Negative); Nitrite Negative (Negative); Protein, Urine (Dipstick) Negative (Neg-Trace); Urobilinogen 0.2 mg/dL (0.2-1.0)
[2019-05-15 20:16] LABS: Bacteria/HPF Rare-Few HPF (None Seen); Hyaline Casts/LPF 4-6 HYALINE CAST LPF (0-3 Hyaline); Pathc Cast-AUWi Flag 1.22 (0-2.49); WBC/HPF 0-3 HPF (0-3)
[2019-05-15 20:17] LABS: Urine Culture Reflex No No
[2019-05-15 20:24] LABS: Amphetamine Not Detected (NotDetected); Barbiturates Screen Not Detected (NotDetected); Benzodiazepine Screen Detected (NotDetected); Cocaine Metabolite Screen Not Detected (NotDetected); Medtox Control Line Valid? VALID (VALID); Medtox Reader # READER 1; Methadone Not Detected (NotDetected); Methamphetamine Not Detected (NotDetected); Opiate Screen Detected (NotDetected); Oxycodone Screen Not Detected (NotDetected); Phencyclidine (PCP) Not Detected (NotDetected); THC/Cannabinoid Screen Not Detected (NotDetected); Tricyclic Screen Not Detected (NotDetected)
[2019-05-15] MEDS ORDERED: Nicotine 21 MG PATCH TD SCH (21:00)
[2019-05-15] MEDS: Melatonin 3 MG TAB PO SCH (21:35)
[2019-05-15] MEDS: traZODone HCl 50 MG TAB PO SCH (21:36)
[2019-05-15] MEDS: Famotidine/PF 20 mg/2ml Vial SLOW IVP SCH (21:36)
[2019-05-15] MEDS: Acetaminophen/Codeine 30-300mg Tablet PO PRN (22:30)
[2019-05-15] MEDS: ALPRAZolam 0.5 MG TAB PO PRN (22:33)
[2019-05-16] MEDS: Acetaminophen/Codeine 30-300mg Tablet PO PRN ×4 (04:00→21:19)
[2019-05-16 04:55] LABS: #Lymphocytes 1.7 thou/uL (1.20-3.40); #Monocytes 0.9 thou/uL (0.11-0.59); #Neutrophils 8.6 thou/uL (1.40-6.50); %Basophils 0.3 % (0.0-1.0); %Eosinophils 0.1 % (0.0-10.0); %Lymphocytes 14.8 % (21.0-51.0); %Monocytes 8.2 % (0.0-10.0); %Neutrophils 76.6 % (42.0-75.0); Hemoglobin 12.2 g/dL (12.0-16.0); Mean Corpuscular HGB CONC 32.2 g/dL (32.0-36.0); Mean Corpuscular Hemoglobin 28.4 pg (27.0-31.0); Mean Corpuscular Volume 88.4 fL (78.0-98.0); Platelet Count 216 thou/uL (130-400); RBC Distribution Width 14.5 % (11.5-14.5); Red Blood Cell (RBC) Count 4.28 mill/uL (4.20-5.40); White Blood Cell (WBC) Count 11.2 thou/uL (4.8-10.8)
[2019-05-16 05:19] LABS: ALT (SGPT) 17 U/L (8-55); AST (SGOT) 10 U/L (5-34); Albumin 3.3 g/dL (3.5-5.0); Alkaline Phosphatase 50 U/L (40-150); Anion Gap 12 mmol/L (10-20); BUN (Urea Nitrogen) 7 mg/dL (7.0-18.7); Bilirubin, Total 0.3 mg/dL (0.2-1.2); Calc. Creatinine Clearance 136 mL/min (70-130); Calcium 8.4 mg/dL (7.8-10.44); Carbon Dioxide 21 mmol/L (22-29); Chloride 110 mmol/L (98-107); Estimated GFR-MDRD Greater than 90; Globulin 2.6 g/dL (2.4-3.5); Glucose 123 mg/dL (70-105); Potassium 3.9 mmol/L (3.5-5.1); Protein, Total 5.9 g/dL (6.0-8.3); Sodium 139 mmol/L (136-145)
[2019-05-16] MEDS: Varenicline Tartrate 0.5 MG TAB PO SCH (08:56)
[2019-05-16] MEDS: DULoxetine 60 MG CAP PO SCH (08:57)
[2019-05-16] MEDS: Estradiol 1 MG TAB PO SCH (08:57)
[2019-05-16] MEDS: Furosemide 20 MG TAB PO SCH (08:57)
[2019-05-16] MEDS: Carvedilol 6.25 MG TAB PO SCH ×2 (08:57→18:17)
[2019-05-16] MEDS: Famotidine/PF 20 mg/2ml Vial SLOW IVP SCH ×2 (08:58→21:19)
[2019-05-16] MEDS: methylPREDNISolone Sod Succ 40 MG VIAL IVP SCH ×2 (11:52→18:17)
[2019-05-16] MEDS: Morphine 2 MG/ML SYRINGE SLOW IVP PRN ×2 (11:52→16:03)
[2019-05-16] MEDS ORDERED: Albuterol Sulfate 2.5 mg/3 ml Neb NEB PRN (15:15)
[2019-05-16] MEDS ORDERED: Nitroglycerin 0.4 MG TAB (25 Tab Bottle) SL PRN (15:15)
--- NOTE | 2019-05-16 16:01 | MRI ---
EXAM: Lumbar spine MRI without contrast. HISTORY: Lumbar radiculopathy COMPARISON: 09/06/2016 FINDINGS: Multiplanar, multisequence MRI examination of the lumbar spine is performed. The conus medullaris region appears unremarkable. No evidence for abnormal marrow signal. Generalized disc desiccation changes and ligament and facet hypertrophic changes. T12-L1 disc level: Unremarkable. L1-L2 disc level: Unremarkable. L2-L3 disc level: Diffuse disc bulging with a focal central protrusion with some discal migration ext ending superior to the disc level resulting in moderate central canal and lateral recess stenosis and moderate to severe right foraminal stenosis and moderate left foraminal stenosis. L3-L4 disc level: Moderate central canal, lateral recess, and foraminal stenosis. L4-L5 disc level: Mild grade 1 anterolisthesis of L4 and L5 with moderate central canal and moderate to severe lateral recess stenosis and bilateral foraminal stenosis worse on the left side. Prominent left facet arthrosis. L5-S1 disc level: Unremarkable. IMPRESSION: Multilevel variable severity canal, lateral recess, and foraminal stenosis particularly at L2-L3, L4- L5, and L3-4 levels
[2019-05-16] MEDS: ALPRAZolam 0.5 MG TAB PO PRN (18:21)
[2019-05-16] MEDS ORDERED: Gabapentin 100 MG CAP PO SCH (18:30)
[2019-05-16] MEDS: Morphine 4 MG/ML VIAL SLOW IVP PRN ×2 (18:42→23:24)
--- NOTE | 2019-05-16 21:12 | PDOC.PN ---
- Subjective Encounter Start Date: 05/16/19 Encounter Start Time: 17:00 Patient seen twice today. Had significant pain in lower back. Denies any abdominal pain. Has radiation down her right buttock and leg. Started when she stepped down from a camper about six days ago. Saw her PCP and had CT ordered. Shows some disc bulging and possible nerve root entrapment. Leg feels cold. Pain is severe. - Objective Resuscitation Status - Order Detail: 05/15/19 18:25 Resuscitation Status Routine Co-Sign Provider: Resuscitation Status: FULL: Full Resuscitation Vital Signs & Weight: Vital Signs (12 hours) Temp Pulse Resp BP BP Pulse Ox 05/16/19 19:20 97.7 F 79 20 128/62 98 05/16/19 19:06 79 20 100 05/16/19 16:00 98.8 F 79 20 117/57 L 97 05/16/19 14:50 61 18 05/16/19 11:38 98.2 F 61 18 138/68 99 05/16/19 10:55 56 L 16 Weight Weight 178 lb 6.4 oz I&O: 05/15/19 05/16/19 05/17/19 06:59 06:59 06:59 Intake Total 1365 727 Output Total 1300 1650 Balance 65 -923 Result Diagrams: 05/16/19 04:18 05/16/19 04:18 Phys Exam - Physical Examination Crying. Will stop when engaged in conversation. Respiratory: no wheezing, no rales Diffusely diminished Cardiovascular: RRR, no significant murmur Gastrointestinal: soft, non-tender, no distention Musculoskeletal: no edema Neurological: normal sensation Normal strength. Has positive SLR on R. Deviation from normal: Anxious and emotional. Dx/Plan (1) Lumbar radicular pain Code(s): M54.16 - RADICULOPATHY, LUMBAR REGION Status: Acute (2) Herniated lumbar intervertebral disc Code(s): M51.26 - OTHER INTERVERTEBRAL DISC DISPLACEMENT, LUMBAR REGION Status : Acute (3) COPD exacerbation Code(s): J44.1 - CHRONIC OBSTRUCTIVE PULMONARY DISEASE W (ACUTE) EXACERBATION Status: Acute (4) Anxiety and depression Code(s): F41.9 - ANXIETY DISORDER, UNSPECIFIED; F32.9 - MAJOR DEPRESSIVE DISORDER, SINGLE EPISODE, UNSPECIFIED Status: Chronic Comment: stable (5) Chronic pain syndrome Code(s): G89.4 - CHRONIC PAIN SYNDROME Status: Chronic - Plan * Original H and P is not populating in the EHR. * Apparently admitted from the ED with pancreatitis. * That does not appear to be the case at all. * Will advance diet. * Does have radicular pain with CT report indicating problems. * Ordered MRI. Does demonstrate some disc herniation with canal and nerve root compression. * Will get her back on the Decadron she had been on at home from Dr. Grey for her COPD. * She has been very dramatic about her pain. Crying that will stop as I talk with her. * She says the T#3 and morphine are not helpful. Asks if I can change it to demerol. * I will increase the morphine to 4 mg, add gabapentin and resume her alprazolam. * Consult neurosurg.
[2019-05-16] MEDS: Pramipexole Di-HCl 1 MG TAB PO SCH (21:17)
[2019-05-16] MEDS: Melatonin 3 MG TAB PO SCH (21:17)
[2019-05-16] MEDS: Dexamethasone 4 MG TAB PO SCH (21:18)
[2019-05-16] MEDS: traZODone HCl 50 MG TAB PO SCH (21:18)
[2019-05-17] MEDS: Morphine 4 MG/ML VIAL SLOW IVP PRN ×3 (05:50→21:17)
[2019-05-17] MEDS: Acetaminophen/Codeine 30-300mg Tablet PO PRN ×3 (08:19→21:13)
[2019-05-17] MEDS: DULoxetine 60 MG CAP PO SCH (08:21)
[2019-05-17] MEDS: Nicotine 21 MG PATCH TOP SCH (08:21)
[2019-05-17] MEDS: Estradiol 1 MG TAB PO SCH (08:22)
[2019-05-17] MEDS: Furosemide 20 MG TAB PO SCH (08:22)
[2019-05-17] MEDS: Montelukast Sodium 10 mg Tablet PO SCH (08:23)
[2019-05-17] MEDS: Famotidine/PF 20 mg/2ml Vial SLOW IVP SCH (08:23)
[2019-05-17] MEDS: Dexamethasone 4 MG TAB PO SCH ×2 (08:23→21:12)
[2019-05-17] MEDS: Carvedilol 6.25 MG TAB PO SCH ×2 (08:23→17:07)
[2019-05-17] MEDS: Varenicline Tartrate 0.5 MG TAB PO SCH (08:23)
[2019-05-17] MEDS ORDERED: Polyethylene Glycol 3350 17 GM Packet PO PRN (09:39)
--- NOTE | 2019-05-17 09:44 | PDOC.PN ---
- Subjective Encounter Start Date: 05/17/19 Encounter Start Time: 09:42 Reports she is still having pain. Says the morphine is not doing anything at all for her. Can't even tell when it is given. Having some constipation. - Objective Resuscitation Status - Order Detail: 05/15/19 18:25 Resuscitation Status Routine Co-Sign Provider: Resuscitation Status: FULL: Full Resuscitation Vital Signs & Weight: Vital Signs (12 hours) Temp Pulse Resp BP BP Pulse Ox 05/17/19 08:23 112/53 L 05/17/19 08:00 61 18 96 05/17/19 07:33 97.2 F L 65 18 112/53 L 97 05/17/19 05:45 97.6 F 66 16 132/73 96 05/17/19 02:33 71 16 05/16/19 23:10 98.1 F 66 20 119/58 L 97 Weight Weight 178 lb 6.4 oz I&O: 05/16/19 05/17/19 05/18/19 06:59 06:59 06:59 Intake Total 1365 1207 Output Total 1300 2950 Balance 65 -1743 Result Diagrams: 05/16/19 04:18 05/16/19 04:18 Phys Exam - Physical Examination Constitutional: NAD Scattered wheezing and rales. Mild. Cardiovascular: RRR, no significant murmur Gastrointestinal: soft, non-tender, no distention, positive bowel sounds Musculoskeletal: no edema R SLR Deviation from normal: Histrionic, less emotional than last evening. Dx/Plan (1) Lumbar radicular pain Code(s): M54.16 - RADICULOPATHY, LUMBAR REGION Status: Acute (2) Herniated lumbar intervertebral disc Code(s): M51.26 - OTHER INTERVERTEBRAL DISC DISPLACEMENT, LUMBAR REGION Status : Acute (3) COPD exacerbation Code(s): J44.1 - CHRONIC OBSTRUCTIVE PULMONARY DISEASE W (ACUTE) EXACERBATION Status: Acute (4) Anxiety and depression Code(s): F41.9 - ANXIETY DISORDER, UNSPECIFIED; F32.9 - MAJOR DEPRESSIVE DISORDER, SINGLE EPISODE, UNSPECIFIED Status: Chronic Comment: stable (5) Chronic pain syndrome Code(s): G89.4 - CHRONIC PAIN SYNDROME Status: Chronic - Plan * Add bowel regimen. * Reviewed with CM. Will convert to MIP. * Transfer to surg floor. * Discussed with Neurosurg. * Will plan on Pain Management Consult for injections tomorrow. * Attempting to find alternative pain meds. Discussed with pharmacy. * Tolerated the gabapentin well. Will increase and give scheduled. * Continue her psych/anxiety meds. * Continue Steroids and nebs.
[2019-05-17] MEDS ORDERED: Gabapentin 300 MG CAP PO SCH (09:45)
[2019-05-17] MEDS ORDERED: Heparin 5,000 UNITS/ML VIAL SC SCH (10:00)
[2019-05-17] MEDS: tiZANidine HCl 4 MG TAB PO PRN (10:44)
[2019-05-17] MEDS ORDERED: Morphine 4 MG/ML VIAL SLOW IVP SCH (11:45)
[2019-05-17] MEDS: ALPRAZolam 0.5 MG TAB PO PRN ×2 (12:26→21:12)
--- NOTE | 2019-05-17 16:41 | CON ---
DATE OF CONSULTATION: HISTORY OF PRESENT ILLNESS: Ms. Rodriguez is a 48-year-old female who came into the emergency department for significant back pain, anxiety, and COPD exacerbation. She is complaining of significant low back pain and right leg pain. This pain follows the right L5 distribution and she states that she has numbness and tingling on the top of her right foot. She has sensation changes top of right foot and along the L5 distribution as well on the right in comparison to the left with light touch. The patient is hesitant to move her right leg much at all due to the pain that radiates down her back and the back of her leg. She is visibly upset and seems to be slightly weepy today. She states that last weekend she was stepping out of her camper and missed a step and stepped hard down on the right leg. Since then, she has had significant pain. She has seen her primary care and had a CT ordered showing some disk bulging and possible nerve root entrapment. She came to the emergency room, came into the hospital and had MRI of the lumbar spine which shows mild listhesis at L4-5 with some moderate canal narrowing at that level. There are disk bulges at L2-3 and L3-4 without severe central canal stenosis. When I see the patient today, she is weepy and upset stating that she is in severe pain and needs something to be done. She states that the morphine is not helping her pain anymore. She describes pain that is local to the low back and radiates into her buttock and down the back of her right leg. She describes change in sensation in the same distribution in the top of her right foot. She says that if she tries to stand that leg will go out from under her at times. She needs assistance to move. The patient states that she has not had significant back pain in the past, but from time to time she will get a sore back requiring her to use Tylenol or Aleve. The patient has seen Dr. Barry in the past for cervical operation and she would like to see him again if she can. The patient has good strength on the left leg and all muscle groups. However, on the right, the patient has give-way due to pain, unsure of the amount of effort she is giving. REVIEW OF SYSTEMS: A 10-point review of systems is completed and is negative other than stated in the above HPI. PAST MEDICAL HISTORY: COPD, heart catheterization in March, cardiac history, coronary artery disease, diabetes, and pulmonary disease. PAST SURGICAL HISTORY: Appendectomy, hysterectomy, heart catheterization, ulnar nerve transposition, ACDF C5 through C7, tonsillectomy, bladder suspension. PSYCHIATRIC HISTORY: Anxiety. SOCIAL HISTORY: The patient denies alcohol use. Denies drug use. She is a former tobacco user. States she quit smoking a month ago. ALLERGIES: DOXYCYCLINE, GEODON, HALDOL, HALOPERIDOL, KETAMINE, LEVAQUIN, PENICILLIN. CURRENT MEDICATIONS: 1. Estradiol. 2. Carvedilol. 3. Trazodone. 4. Mirapex. 5. Tylenol No. 3. 6. Duloxetine. 7. Alprazolam. 8. Montelukast. 9. Nitroglycerin. 10. Pramipexole. 11. Melatonin. 12. NicoDerm. PHYSICAL EXAMINATION: VITAL SIGNS: Temperature 97.2, heart rate 65, respirations 18, O2 saturations 97% on room air, and blood pressure 112/53. CONSTITUTIONAL: The patient is alert and oriented. She is crying and weepy stating that she is in so much pain. She appears nontoxic. HEENT: Head is normocephalic and atraumatic. Pupils are equal, round, and reactive to light. Extraocular movements are intact. Hearing is intact. Moist mucous membranes. RESPIRATORY: Normal work of breathing. EXTREMITIES: Upper extremities have normal range of motion. Strength 5/5 bilateral in deltoids, biceps, triceps, curriculum manager strength. No change in sensation. No visible abnormalities. Lower extremities; 5/5 strength in hip flexion, knee flexion, knee extension, dorsiflexion, plantar flexion, EHL, great toe flexors. Left leg, the patient has give-way strength in all muscle groups due to pain. Unsure the patient has willingness to participate very weepy during exam and the patient had good strength, but give-way and unable to access well. NEURO: The patient is alert and oriented x3. Normal attention and concentration. Speech, spontaneous and fluent. Cranial nerves 2 through 12 are grossly intact. The patient has decreased sensation to light touch on top of her right foot and following the L5 distribution on the right leg compared to left. Reflexes are equal bilaterally. No clonus. No Babinski's. IMAGING DATA: MRI of the lumbar spine showed multilevel degenerative changes. There is foraminal stenosis at L2-3, L3-4 and L4-5. There is a mild listhesis at L4-5. ASSESSMENT AND PLAN: Ms. Rodriguez is a 48-year-old female who has had approximately 6 days of low back pain and right leg radiculopathy. She is very anxious and upset about this pain distracting for her from a neurosurgical standpoint. We recommend consulting pain management for a left L5 DUNIA or transforaminal. This can give her good local relief of her symptoms as well as continuing a course of oral steroids and PPI for GI protection. We also recommend that she follows up with a neurosurgeon of her choice and if she has seen Dr. Barry in the past to discuss outpatient options given the imaging. We do not recommend rushing into surgery at this time. For any other questions, please contact the neurosurgery group. Job ID: [id number]
[2019-05-17] MEDS: Melatonin 3 MG TAB PO SCH (21:12)
[2019-05-17] MEDS: traZODone HCl 50 MG TAB PO SCH (21:12)
[2019-05-17] MEDS: Pramipexole Di-HCl 1 MG TAB PO SCH (21:13)
[2019-05-17] MEDS: Gabapentin 300 MG CAP PO SCH (21:13)
[2019-05-17] MEDS: Senokot S 8.6-50 MG TAB PO SCH (21:13)
--- NOTE | 2019-05-18 08:03 | HP ---
CHIEF COMPLAINT: Shortness of breath and chest pain. HISTORY OF PRESENT ILLNESS: Ms. Rodriguez is a 48-year-old woman with known history of coronary artery disease, who states she has had intermittent chest pain for the last year that is at times associated with shortness of breath. The patient states she presented to her primary care physician to provide results for a recent CT of the lumbar spine that she had done for severe lumbar back pain that is also chronic with right-sided sciatica. The patient states while she was at the office, she became lightheaded and was experiencing sternal chest pressure, similar to which she experiences on a regular basis. She states she felt slightly disoriented, but denies any dizziness. Apparently, she does not follow with a chisel trimmer. The patient states that because she looked unwell, her primary care physician referred her to the emergency department. The chest pain today again was in the substernal region, 9/10 in severity, and she describes a pressure that radiated through to her back. She states her pain has been intermittent for the last year. It can come on at rest or with exertion. The patient states she does suffer from episodes of vocal cord spasms requiring nebulizer treatment and Ativan. She denies having any cough or hemoptysis. She is a smoker and is currently attempting to quit. Denies any . Reports having occasional nausea and vomiting. Denies having any abdominal pain. Reports having a good appetite. Denies any regular alcohol use, but did drink one beer yesterday. Denies any drug use. The patient states her main complaint at this present time is her lower lumbar back pain and right-sided sciatica. She states what typically helps for her pain is Demerol. She is also asking for IV Ativan to help with her vocal cord paralysis episodes, though she does confirm the DuoNebs and p.o. Ativan worked well at home. With regard to her cardiac history, she last underwent an echo in March 2015. At which time, she was noted to have hyperdynamic LV systolic function with an EF of 65% to 70%, biatrial enlargement, aortic valve calcifications with mild aortic stenosis, mild MR and mild TR. Presented with similar symptoms in February [address] dissection protocol showing a normal aorta. She did have questionable hepatic steatosis and questionable hypertrophic cardiomyopathy. She underwent catheterization by Dr. Coon in January 2019 and noted to have coronary artery disease, possible LAD spasm and mildly impaired ventricular function. With regard to her lumbar spine, the CT of the lumbar spine has demonstrated degenerative changes and multilevel circumferential disk bulges, most notably at L2-L3, L3-L4, L4-L5. Spinal canal stenosis most pronounced at L4-L5, moderate to severe. High-grade left foraminal stenosis at L4-L5. 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 The patient has not yet been referred to Neurosurgery specialist, but states her primary care physician was intending to do so following results of the CT scan. In the emergency department, she underwent laboratory studies that were notable for elevated lipase of 173. LFTs otherwise unremarkable. She has been placed on a clear liquid diet and was referred for pancreatitis. She has had an abdominal ultrasound done, which shows hepatic steatosis, minimal, tiny amount of ascites, normal appearance of the pancreas and no evidence of cholelithiasis or acute cholecystitis. The patient without any abdominal pain. Of note, the patient denies having any bladder or stool incontinence. No saddle paresthesias. No extremity weakness. She is mobilizing without any difficulty. PAST MEDICAL HISTORY: 1. Coronary artery disease. 2. Diabetes. 3. Hypoglycemia. 4. COPD. 5. Anxiety. 6. Depression. 7. Previous IL. 8. Chronic lower back pain with right-sided sciatica. PAST SURGICAL HISTORY: 1. Previous hysterectomy due to cyst in the right pelvic area. 2. Heart catheterization. 3. Ulnar nerve transposition in both arms. 4. Tonsillectomy. 5. Bladder suspension. 6. ACDF (C5 through C7 replaced). SOCIAL HISTORY: The patient reports smoking, but is working on quitting at the moment. Reports occasional alcohol use and drank last yesterday. She states she only had one beer. Denies any illicit drug use. ALLERGIES: 1. DOXYCYCLINE. 2. GEODON. 3. HALDOL. 4. HALOPERIDOL. 5. KETAMINE. 6. LEVAQUIN. 7. PENICILLIN. CURRENT MEDICATIONS: 1. Estradiol. 2. Carvedilol. 3. Trazodone. 4. Mirapex. 5. Tylenol No.3. 6. Duloxetine. 7. Alprazolam. 8. Montelukast. 9. Nitroglycerin. 10. Pramipexole. 11. Melatonin. 12. Nicoderm. PHYSICAL EXAMINATION: GENERAL: The patient appears to be in some discomfort due to her back pain and lying straight on her back. VITAL SIGNS: Temperature 98.1, pulse 63, respirations 18, blood pressure 120/82, and O2 saturation 96% on room air. Pain 5/10 in her chest and 8/10 on her lower back, and 2/10 pain in her abdomen. HEENT: Normocephalic and atraumatic. Pupils are equal, round, and reactive to light. Extraocular movements are intact. No nystagmus. Oropharynx is clear. NECK: Supple. LUNGS: Lungs are notable for rhonchi at the bilateral bases. No wheezes, no crackles.. CARDIAC: Regular rate and rhythm. ABDOMEN: Soft, nontender, nondistended. Normoactive bowel sounds present. No guarding or rigidity. Negative Terry sign. Negative Rovsing's. No renal angle tenderness. EXTREMITIES: No lower leg swelling or edema. NEUROLOGIC: Alert and oriented x3. Cranial nerves intact. Power 5/5 in all limbs. She has mildly reduced sensation along the L4 dermatome on the right side. Reflexes are present. MUSCULOSKELETAL: Able to straight leg raise bilaterally, but with left-sided back pain, less discomfort with passive straight leg raise. Power 5/5 in all limbs. SKIN: Without rash or jaundice. LABORATORY DATA: White blood count 13.4, hemoglobin 13.6, hematocrit 42.6, platelets 253. Sodium 136, potassium 4.3, anion gap 15, BUN 14, creatinine 0.76, GFR 81, glucose 101, calcium 9.3, total bilirubin 0.3, AST 18, ALT 20, alkaline phosphatase 63. Troponin-I negative x2. BNP 59.5. Total protein 7, albumin 3.7, lipase 173. IMAGING DATA: Chest x-ray, no active cardiopulmonary abnormalities demonstrated. All other imaging data as mentioned above in HPI. IMPRESSION AND PLAN: Ms. Rodriguez is a 48-year-old woman, who is being referred for management of the following. 1. Presumed pancreatitis. The patient reports occasional nausea and vomiting in recent days, which have resolved. Denies any abdominal pain. Laboratory studies are notable for a lipase of 173. She has been placed on a clear liquid diet. She has mild leukocytosis; however, this may be reactive from other symptoms she has been experiencing. We will hold on any antibiotics as the patient is afebrile and abdominal ultrasound was unremarkable for any signs of cholecystitis, cholelithiasis, or pancreatitis. We will continue to monitor. 2. Chest pain. The patient states this is intermittent and has been going on for the last year. She has had a previous IL and history of a known coronary artery disease. Last catheterization was in January 2019 and she had an echo in March of 2015. Since she did report persistent shortness of breath for the last several months, we will obtain a repeat echocardiogram since it has been several years. The patient is not following with any chisel trimmer at the moment. We will continue to trend troponins. There does seem to be some underlying anxiety that maybe contributing to her symptoms. We will place a consult to Dr. Leslie who is internship coordinator for Cardiology tomorrow and is familiar with the patient. 3. Lumbar back pain with sciatica. CT of the lumbar spine has confirmed high-grade foraminal stenosis at L4-L5 on the left side. However, her symptoms are on the right side. She does have [id number] stenosis at L4-L5. She states she has severe 9/10 pain in her lower back that shoots down her right leg. We will resume her home analgesia which works for pain. We will then decide if further imaging with MRI and referral to Neurosurgery indicated as inpatient versus continuing this as an outpatient with her primary care physician, given the fact that it is chronic and she has no signs or symptoms for cauda equina. 4. the patient states she often has spasms of her vocal cords, which cause her to panic. For this, she uses regular DuoNeb treatments every 4 to 6 hours and Ativan. We will continue these. I explained to the patient that she can continue p.o., though she initially was requesting IV. 5. Hypoglycemia. The patient states she has issues with hypoglycemic episodes. We will monitor her blood glucose and treat as necessary. 6. Tobacco use. The patient is currently quitting and using nicotine patch and Chantix. We will resume these medications. 7. Gastrointestinal prophylaxis. 8. Deep venous thrombosis prophylaxis with mechanical SCDs. 9. Code status, full. Her surrogate decision maker is her , Jose Rodriguez. The patient's case will be discussed with attending for further recommendations. Job ID: [id number]
[2019-05-18] MEDS: Montelukast Sodium 10 mg Tablet PO SCH (08:38)
[2019-05-18] MEDS: Estradiol 1 MG TAB PO SCH (08:38)
[2019-05-18] MEDS: DULoxetine 60 MG CAP PO SCH (08:38)
[2019-05-18] MEDS: Dexamethasone 4 MG TAB PO SCH ×2 (08:39→21:10)
[2019-05-18] MEDS: Furosemide 20 MG TAB PO SCH (08:39)
[2019-05-18] MEDS: Gabapentin 300 MG CAP PO SCH ×2 (08:39→21:10)
[2019-05-18] MEDS: Senokot S 8.6-50 MG TAB PO SCH ×2 (08:39→21:10)
[2019-05-18] MEDS: Nicotine 21 MG PATCH TOP SCH (08:40)
[2019-05-18] MEDS: Carvedilol 6.25 MG TAB PO SCH ×2 (08:40→17:38)
[2019-05-18] MEDS: Varenicline Tartrate 0.5 MG TAB PO SCH (08:58)
[2019-05-18] MEDS: Morphine 4 MG/ML VIAL SLOW IVP PRN (11:40)
[2019-05-18] MEDS: Acetaminophen/Codeine 30-300mg Tablet PO PRN ×2 (14:06→19:20)
[2019-05-18] MEDS: ALPRAZolam 0.5 MG TAB PO PRN ×2 (14:11→21:12)
--- NOTE | 2019-05-18 15:11 | PRG ---
DATE OF SERVICE: 05/18/2019 SUBJECTIVE: The patient is seen and examined at the bedside. She just came back from epidural steroid injection by Pain Management Team. She still complains about back pain at the same level what she had prior to this procedure. Her appetite is fair. She did not have bowel movement for 4 days. OBJECTIVE: VITAL SIGNS: Blood pressure is 114/68, pulse is 76, temperature is 98.0, respirations 16, O2 saturation is 99% on room air. HEENT: Head is atraumatic, normocephalic. Eyes are PERRLA. Sclerae are nonicteric. Oral mucosa is moist. NECK: Supple. LUNGS: Clear. HEART: S1, S2 normal. No S3. No S4. No any murmur. ABDOMEN: Soft, nontender. Bowel sounds are present. No organomegaly. EXTREMITIES: No clubbing, cyanosis, or edema. LABORATORY DATA: None today. IMPRESSION: 1. Right lower extremity lumbar radicular pain. 2. Chronic obstructive pulmonary disease. 3. Anxiety and depression. 4. Chronic pain syndrome. 5. Narcotic addiction. 6. Constipation. DISCUSSION: The patient just had a first epidural steroid injection by Pain Management team. We will continue current pain management with morphine and Tylenol No. 3. The patient is constipated. She is on Senokot-S. I am going to add Movantik and she is clearly looking for effect of morphine. She states that it does not really help for the pain, then she asked for more and more doses and higher. She is interested in doubling the dose of morphine and Tylenol No. 3. The patient was seen by Neurosurgery and there is no any recommendation for any surgery at this point, so we will continue PT. We will continue gabapentin. We will continue antianxiety medications and she should be able to go home as soon as this is improved. Job ID: [id number]
[2019-05-18] MEDS ORDERED: Iopamidol 250 51% 100 ML VIAL FS ONE (16:01)
[2019-05-18] MEDS ORDERED: Lidocaine 2% MPF 10 ML AMP (For Epidural Use) ONE (16:01)
[2019-05-18] MEDS ORDERED: Bupivacaine 0.25% 10 ML VIAL ONE (16:01)
[2019-05-18] MEDS ORDERED: Sodium Chloride 0.9% (PF) 10 ML VIAL ONE (16:01)
[2019-05-18] MEDS: traZODone HCl 50 MG TAB PO SCH (21:09)
[2019-05-18] MEDS: Melatonin 3 MG TAB PO SCH (21:10)
[2019-05-18] MEDS: Pramipexole Di-HCl 1 MG TAB PO SCH (21:10)
[2019-05-19] MEDS: tiZANidine HCl 4 MG TAB PO PRN (06:10)
[2019-05-19] MEDS: ALPRAZolam 0.5 MG TAB PO PRN (06:10)
[2019-05-19] MEDS: Acetaminophen/Codeine 30-300mg Tablet PO PRN ×2 (06:10→15:44)
[2019-05-19] MEDS: Morphine 4 MG/ML VIAL SLOW IVP PRN ×3 (06:14→14:48)
[2019-05-19] MEDS: Furosemide 20 MG TAB PO SCH (08:20)
[2019-05-19] MEDS: Nicotine 21 MG PATCH TOP SCH (08:20)
[2019-05-19] MEDS: Dexamethasone 4 MG TAB PO SCH (08:20)
[2019-05-19] MEDS: DULoxetine 60 MG CAP PO SCH (08:20)
[2019-05-19] MEDS: Carvedilol 6.25 MG TAB PO SCH (08:21)
[2019-05-19] MEDS: Estradiol 1 MG TAB PO SCH (08:21)
[2019-05-19] MEDS: Senokot S 8.6-50 MG TAB PO SCH (08:21)
[2019-05-19] MEDS: Montelukast Sodium 10 mg Tablet PO SCH (08:21)
[2019-05-19] MEDS: Gabapentin 300 MG CAP PO SCH (09:55)
[2019-05-19] MEDS: Varenicline Tartrate 0.5 MG TAB PO SCH (09:55)
[2019-05-19 11:32] VITALS: TEMP 98.1
[2019-05-19 15:05] VITALS: BP 154/82
--- NOTE | 2019-05-19 17:58 | DIS ---
DATE OF ADMISSION: 05/15/2019 DATE OF DISCHARGE: 05/19/2019 DIAGNOSES AT THE TIME OF DISCHARGE: 1. Right lower extremity lumbar radicular pain. 2. Herniated lumbar intervertebral disk. 3. Chronic obstructive pulmonary disease exacerbation. 4. Anxiety and depression. 5. Chronic pain syndrome. CONSULTANTS: Neurosurgery Service; and Dr. Rasheed, Pain Management. PROCEDURES: Epidural steroid injection by Pain Management team. IMAGES: 1. Chest x-ray, no active cardiopulmonary abnormalities. 2. Abdominal ultrasound showed hepatic steatosis, minimal amount of ascites. 3. Lumbar spine MRI, multilevel, variable severity, canal, lateral recess and foraminal stenosis particularly at L2-L3, L4-L5, and L3-L4 levels. 4. Echocardiogram showed LVEF of 60% to 65%, grade 2 diastolic dysfunction, dilated right ventricle with normal RV systolic function, moderately enlarged right atrium size, and mild tricuspid regurgitation. HOSPITAL COURSE: This is a 48-year-old female with history of coronary artery disease, who had intermittent chest pain and shortness of breath, who presented to her primary care physician to provide results for a recent CT of the lumbar spine that she had done for severe lumbar back pain, that is also chronic with right-sided sciatica. While in the office, she became lightheaded, experienced substernal chest pressure, very similar to which she experiences on a regular basis. Primary care physician referred her to emergency room for further evaluation. She had done cardiac catheterization by Dr. Coon in January 2019, which showed to have coronary artery disease and possible LAD spasm and mildly impaired ventricular function. Her recent CT of the lumbar spine showed multilevel circumferential disk bulges most notably at L2-L3, L3-L4, L4-L5, and spinal canal stenosis most pronounced at L4-L5, which is moderate to severe. While in the emergency room, she had lipase level checked and it was slightly elevated at 173. She was placed on clear liquids and referred to Hospitalist Service for pancreatitis. She had abdominal ultrasound done, which showed hepatic steatosis, tiny amount of ascites, normal-appearing pancreas, and no evidence of cholelithiasis or acute cholecystitis. The patient did not have any abdominal pain. During emergency room evaluation, her white count was up to 13.4, hemoglobin 13.6, hematocrit 42.6, platelet count 253. Sodium was 136, potassium 4.3, BUN 14, creatinine 0.76, total bilirubin was 0.3. Normal liver function test. Troponin-I was negative x2. BNP 59.5. As mentioned above, chest x-ray did not reveal any abnormalities, so she got admitted for presumed pancreatitis with additional diagnosis of intermittent chest pain. Subsequently, after admission to the hospital, she had MRI of the lumbar spine done, which showed multilevel, variable severity, canal, lateral recess and foraminal stenosis. Then, she underwent echocardiogram, which showed ejection fraction of 60% to 65% and grade 2 diastolic dysfunction. The patient was seen by neurosurgical PA for her radiculopathy, and the final recommendation was no surgical intervention was indicated. The patient was referred to paint roller covers supervisor Dr. Rasheed, who was represented by his PA, who did an epidural steroid injection. She had some improvement after the injection, and she is feeling somewhat better. She is ready to go home. We are obtaining a walker, so she can use at home. ACTIVITIES: Will be as tolerated. FOLLOWUP: She will follow up with her primary doctor in 1 week. DIET: She will stay on regular diet. MEDICATIONS: At the time of discharge; 1. Dexamethasone 4 mg twice a day. 2. Estradiol 2 mg once a day. 3. Cymbalta 60 mg once a day. 4. Alprazolam 0.5 mg t.i.d. p.r.n. 5. Montelukast 10 mg once a day. 6. Pramipexole 4 tablets p.o. at bedtime. 7. Chantix 1 mg daily. 8. Melatonin 3 mg at bedtime. 9. Furosemide 20 mg daily. 10. Carvedilol 6.25 mg twice a day. 11. Trazodone 50 mg at bedtime. 12. Nicotine patch 1 a day. 13. Tylenol with codeine No. 3 one to two tablets every 8 hours p.r.n. as needed. 14. DuoNeb p.r.n. 15. Gabapentin 300 mg twice a day. She is advised to set up appointment with Dr. Rasheed. She might need additional epidural steroid injections in her lumbar spine. This should be done between 2 and 4 weeks from the time of discharge. Also, we encouraged her to go to her human resource professional and visit with primary doctor in a week. Job ID: [id number]
--- NOTE | 2019-05-20 10:01 | OP ---
DATE OF PROCEDURE: 05/18/2019 DIAGNOSES: 1. Lumbar radiculopathy. 2. Lumbar disk disease. PROCEDURE PERFORMED: L5-S1 interlaminar epidural steroid injection with fluoroscopic guidance. DESCRIPTION OF PROCEDURE: Informed consent was obtained. The patient was advised of the procedure and informed of potential complications including pain, headache, nerve damage, infection, and bleeding. Informed consent was then signed. The patient denied any recent fever, infection, or use of anticoagulants or . The patient was placed in a prone position on the fluoroscopic table. Fluoroscopic guidance was used to identify the appropriate spinal level. Hibiclens prep was used to clean the skin. Anesthesia was provided with 2% lidocaine for skin and subcutaneous anesthesia. Procedure: Under fluoroscopic guidance, a 20-gauge 3.5-inch Tuohy needle was advanced to the ligamentum flavum and loss of resistance technique was used to identify the epidural space. It was identified easily. Depo-Medrol 80 mg was injected with preservative free normal saline, total volume of 5 mL. No complications were noted. Vital signs were monitored before, during, and after the procedure and were noted in the nursing documentation. Postprocedure, the patient was monitored, vital signs and neurologic status were assessed. The patient tolerated the procedure well without complication Job ID: [id number]
== END 2019-05-19 16:35 | disposition home or self-care (01) | DRG 191 ==
LOC: ERS 12:04 → OBSVTOIN 19:23 → EEVIPCON 19:23 → 2SW 19:23 → SURG A 05-17 14:22
PROVIDERS: ADMIT Family Medicine; ATTEND Family Medicine
DX: J44.1 Chronic obstructive pulmonary disease with (acute) exacerbation (principal); R18.8 Other ascites; I25.10 Atherosclerotic heart disease of native coronary artery without angina pectoris; E11.9 Type 2 diabetes mellitus without complications; M54.31 Sciatica, right side; F41.9 Anxiety disorder, unspecified; F32.9 Major depressive disorder, single episode, unspecified; M54.16 Radiculopathy, lumbar region; G89.4 Chronic pain syndrome; M51.26 Other intervertebral disc displacement, lumbar region; K59.00 Constipation, unspecified; Z98.1 Arthrodesis status; Z88.1 Allergy status to other antibiotic agents; Z79.899 Other long term (current) drug therapy; Z90.710 Acquired absence of both cervix and uterus; Z87.891 Personal history of nicotine dependence; Z88.0 Allergy status to penicillin; Z88.8 Allergy status to other drugs, medicaments and biological substances; I25.2 Old myocardial infarction
CPT/HCPCS: 36415; 71045; 72148; 76705; 80053; 80306; 80307; 81001; 83690; 83880; 84484; 85025; 85379; 93005; 93306; 94640; 96365; 96375; 96376; J1040; J1644; J2001; J2270; J2920; J2930; J3475; J7620; J8540; S0020; S0028

== ENCOUNTER 2019-05-29 13:45 | Observation (INO) | payer BC ==
[2019-05-29 14:27] LABS: #Basophils 0.1 thou/uL (0.0-0.2); #Eosinphils 0.3 thou/uL (0.0-0.7); #Lymphocytes 2.4 thou/uL (1.20-3.40); #Monocytes 0.7 thou/uL (0.11-0.59); %Basophils 0.7 % (0.0-1.0); %Eosinophils 2.3 % (0.0-10.0); %Lymphocytes 20.7 % (21.0-51.0); %Monocytes 6.3 % (0.0-10.0); Hemoglobin 12.4 g/dL (12.0-16.0); Mean Corpuscular HGB CONC 31.4 g/dL (32.0-36.0); Mean Corpuscular Hemoglobin 27.3 pg (27.0-31.0); Mean Corpuscular Volume 87.2 fL (78.0-98.0); Mean Platelet Volume 8.1 fL (7.4-10.4); Platelet Count 202 thou/uL (130-400); RBC Distribution Width 15.5 % (11.5-14.5); Red Blood Cell (RBC) Count 4.53 mill/uL (4.20-5.40); White Blood Cell (WBC) Count 11.4 thou/uL (4.8-10.8)
[2019-05-29 14:48] LABS: ALT (SGPT) 16 U/L (8-55); AST (SGOT) 14 U/L (5-34); Albumin 3.7 g/dL (3.5-5.0); Alkaline Phosphatase 56 U/L (40-150); Anion Gap 10 mmol/L (10-20); BUN (Urea Nitrogen) 17 mg/dL (7.0-18.7); Bilirubin, Total 0.2 mg/dL (0.2-1.2); CK (CPK) 99 U/L (29-168); Calc. Creatinine Clearance 0 mL/min (70-130); Calcium 9.1 mg/dL (7.8-10.44); Carbon Dioxide 24 mmol/L (22-29); Chloride 110 mmol/L (98-107); Estimated GFR-MDRD 83; Globulin 2.7 g/dL (2.4-3.5); Glucose 105 mg/dL (70-105); Potassium 4.4 mmol/L (3.5-5.1); Protein, Total 6.4 g/dL (6.0-8.3); Sodium 140 mmol/L (136-145)
[2019-05-29] MEDS ORDERED: Albuterol Sulfate 2.5 mg/3 ml Neb ONE (15:28)
[2019-05-29] MEDS ORDERED: Albuterol Sulfate 2.5 mg/0.5 ml Neb ONE (15:28)
--- NOTE | 2019-05-29 15:34 | RAD ---
SINGLE VIEW OF THE CHEST: 05/29/19 COMPARISON: 05/15/19 HISTORY: Dyspnea. FINDINGS: Single view of the chest shows a normal sized cardiomediastinal silhouette. There is no evidence of c onsolidation, mass, or pleural effusion. The bones are unremarkable. IMPRESSION: No evidence of acute cardiopulmonary disease. POS: [facility]
--- NOTE | 2019-05-29 15:45 | CT ---
CT ANGIOGRAM OF CHEST PERFORMED WITH INTRAVENOUS CONTRAST ENHANCEMENT WITH 3D RECONSTRUCTIONS: 05/29/19 HISTORY: History of a lung nodule. COPD. Shortness of breath. Audible wheezing, dyspnea. COMPARISON: 01/24/19 study. The areas of ground glass opacity seen in both lung tay on the prior examination shows significant improvement. Still with some minimal residual change in the upper lobes. The nodular density which w as seen in the apical posterior segment of the left upper lobe on approximately axial image 25 just s hows some nonspecific pleural based density which appears to represent scar. There is no confluent infiltrative process. The thoracic aorta is normal in caliber. There is fair pulmonary artery opacification for evaluation for some central embolus. I cannot exclude the possibility of distal emboli on the basis of this exam . There is no CT evidence for pulmonary embolus. No significant mediastinal or hilar adenopathy. The visualized liver parenchyma shows no focal findin gs. IMPRESSION: No CT evidence for pulmonary embolus. POS: [facility]
[2019-05-29] MEDS ORDERED: Morphine 4 MG/ML VIAL ONE (17:39)
[2019-05-29] MEDS ORDERED: Carvedilol 6.25 MG TAB PO SCH (17:45)
[2019-05-29] MEDS ORDERED: Morphine 4 MG/ML VIAL SLOW IVP SCH (17:45)
--- NOTE | 2019-05-29 18:36 | CT ---
CT LUMBAR SPINE, NONCONTRAST: CLINICAL HISTORY: Pain COMPARISON: None FINDINGS: Fracture: No acute fracture Alignment: Grade I spondylolisthesis, L4-5 Disc Spaces, Endplates, Facet Joints: Multilevel mild to moderate degenerative change Incidental findings: Excreted contrast media within the bilateral urinary collection systems IMPRESSION: No acute lumbar spine fracture
[2019-05-29] MEDS ORDERED: tiZANidine HCl 4 MG TAB PO PRN (19:33)
[2019-05-29] MEDS ORDERED: Bacteriostatic Water 30 ML VIAL FS PRN (19:46)
[2019-05-29] MEDS ORDERED: Nitroglycerin 0.4 MG TAB (25 Tab Bottle) SL PRN (19:55)
[2019-05-29 20:00] VITALS: BMI 29.2
[2019-05-29] MEDS ORDERED: cefTRIAXone\\ROCEPHIN 2 GM in Sodium Chloride 0.9% 100 ML IVPB SCH (20:00)
[2019-05-29] MEDS ORDERED: Montelukast Sodium 10 mg Tablet PO SCH (21:00)
[2019-05-29] MEDS ORDERED: Azithromycin 500 MG in Sodium Chloride 0.9% 250 ML 250 ML IVPB SCH (21:00)
[2019-05-29] MEDS ORDERED: traZODone HCl 50 MG TAB PO SCH (21:00)
[2019-05-29] MEDS ORDERED: Melatonin 3 MG TAB PO SCH (21:00)
[2019-05-29] MEDS ORDERED: Lidocaine 5% Patch TD SCH (21:00)
[2019-05-29] MEDS: Acetaminophen/Codeine 30-300mg Tablet PO PRN (21:04)
[2019-05-29] MEDS: Gabapentin 300 MG CAP PO SCH (21:04)
[2019-05-29] MEDS: valACYclovir 500 MG TAB PO SCH (21:04)
[2019-05-29] MEDS: ALPRAZolam 0.5 MG TAB PO PRN (21:09)
[2019-05-29] MEDS: methylPREDNISolone Sod Succ 40 MG VIAL IVP SCH (22:23)
--- NOTE | 2019-05-30 | HP ---
PRIMARY CARE PHYSICIAN: Dr. Melvina Copeland. CHIEF COMPLAINT: Shortness of breath and worsening back pain radiating down right leg. HISTORY OF PRESENT ILLNESS: Ms. Rodriguez is a 48-year-old female with a past medical history of hypertension, diabetes mellitus, hypoglycemia, COPD, anxiety, depression, previous PR, coronary artery disease, and chronic low back pain with right-sided sciatica, who had presented to [facility] earlier today after she experienced worsening wheezing and shortness of breath that started yesterday. She had also reported worsening lower back pain that had radiated down her right lower leg. She states that she was recently admitted and later discharged roughly 10 days ago, and she had underwent an epidural steroid injection that she states that has not helped. She had denied any fever, chills, any chest pain, palpitations, abdominal pain, nausea, vomiting, or any diarrhea or change in stool. She was transferred to the ED via EMS and had a total of 8 to 9 DuoNebs from earlier this morning till now. She states that she took 3 at home, 5 by EMS, and now 1 in the ED. She underwent CTA of the chest which showed no PE at this time. She also underwent a portable chest x-ray, which showed no acute cardiopulmonary disease, and CT lumbar spine which showed no acute lumbar spine fracture or no signs or symptoms of a hematoma from her recent steroid injection. She states that she was supposed to follow up with her pain management doctor on Saturday. Currently, the patient remained stable. Her O2 saturations are 96% on room air, and blood pressure and other vital signs unremarkable. She has no changes to her EKG. REVIEW OF SYSTEMS: All other systems reviewed and found to be negative unless mentioned in HPI. PAST MEDICAL HISTORY: Significant for hypertension, COPD, coronary artery disease, and diabetes mellitus. PAST SURGICAL HISTORY: Appendectomy, hysterectomy, heart catheterization, ulnar nerve transposition in both arms, tonsillectomy, bladder suspension, and cyst removal. PSYCHIATRIC HISTORY: Includes anxiety. SOCIAL HISTORY: The patient denies alcohol or any illicit drug use, however states that she is a former smoker and quit roughly 1 month ago. However, later, she had mentioned that she smokes only a few cigarettes per day. KNOWN ALLERGIES: Doxycycline, Geodon, Haldol, ketamine, Levaquin, and penicillin. CURRENT HOME MEDICATIONS: 1. Acetaminophen with codeine 1 tablet p.o. q.4 hours as needed for pain. 2. Ventolin nebulizer q.4 hours as needed for shortness of breath or wheezing. 3. Decadron 4 mg p.o. b.i.d. 4. Pramipexole 0.5 mg four tablets p.o. at bedtime. 5. Chantix 1 mg p.o. daily. 6. Alprazolam 0.5 mg p.o. t.i.d. 7. Carvedilol 6.25 mg p.o. b.i.d. 8. Duloxetine 60 mg p.o. daily. 9. Estradiol 2 mg p.o. daily. 10. Furosemide 20 mg p.o. daily. 11. Gabapentin 300 mg p.o. b.i.d. 12. Melatonin 3 mg p.o. at bedtime. 13. Montelukast 10 mg p.o. daily. 14. Nicotine 21 mg patch topical daily. 15. Nitroglycerin 0.4 mg sublingual as needed for chest pain. 16. Tizanidine 4 mg 1 to 2 tablets p.o. daily. 17. Trazodone 50 mg p.o. at bedtime. PHYSICAL EXAMINATION: VITAL SIGNS: BP 134/60, pulse 71, respirations 16, temperature 98.3 degrees Fahrenheit, O2 saturations 96% on room air. GENERAL: The patient is awake, alert, and oriented x3. She is currently lying comfortably in bed. Her is at bedside. She appears to be in mild acute distress due to her chronic low back pain and she appears anxious at times during visit. HEENT: Atraumatic, normocephalic. Pupils are round and reactive to light. Extraocular muscles intact. Moist mucous membranes noted. NECK: Soft and supple. Trachea midline. CARDIOVASCULAR: Positive S1 and S2. Regular rate and rhythm. No murmur auscultated. RESPIRATORY: Coarse breath sounds heard with some expiratory wheezing heard bilaterally, currently on room air. ABDOMEN: Soft and nontender. Bowel sounds present. MUSCULOSKELETAL: Strength 5+ bilateral upper and lower extremities. Moves all extremities equal. Trace to 1+ nonpitting edema noted in lower extremities. NEUROLOGIC: Cranial nerves II through XII grossly intact. No focal deficits noted. Speech intact and normal. Gait not assessed. SKIN: Warm, dry, and intact. The patient has some visible vasculitic like rash on her bilateral lower extremities along with a varicellar type rash on her right upper extremity. PSYCHIATRIC: Appears anxious and tearful at times. LABORATORY DATA: WBC 11.4, RBC 4.53, hemoglobin 12.4, platelet 202. Sodium 140, potassium 4.4, anion gap 10, BUN 17, creatinine 0.74, estimated GFR 83, glucose 126. AST 14, ALT 16. Troponin less than 0.010. DIAGNOSTIC IMAGING: Portable chest x-ray showed no evidence of acute cardiopulmonary disease. CT of chest revealed no CT evidence of pulmonary embolism. CT lumbar spine without contrast showed no acute lumbar spine fracture and no signs of a hematoma noted. This did show some chronic changes known. ASSESSMENT AND PLAN: 1. Chronic obstructive pulmonary disease exacerbation. The patient will be started on IV azithromycin and ceftriaxone along with IV Solu-Medrol and scheduled DuoNeb treatments. She will also be resumed on her home regimen. The patient currently is stable on room air and in no acute distress. 2. Varicellar like rash. The patient will be started on Valtrex 1000 mg p.o. t.i.d. and we will check PCR. 3. Acute on chronic lumbar back pain with neuropathy. The patient will seek further management by her Pain Management doctor on Saturday at her followup visit, she will be resumed on her home regimen and we will try to treat her pain while she is here with topical lidocaine patches and IV Toradol as needed. Due to patient's underlying chronic obstructive pulmonary disease, I am hesitant to give her any IV pain regimen including narcotics as she is requesting. 4. History of hypertension. Continue to monitor blood pressure and other vital signs closely, currently stable, and she will be resumed on home regimen. 5. Diabetes mellitus. She will be resumed on home regimen. She will be started on insulin sliding scale with frequent Accu-Cheks. 6. History of anxiety. Continue patient's home regimen. 7. History of coronary artery disease, currently stable at this time. Continue home regimen. 8. Deep venous thrombosis and gastrointestinal prophylaxis. CODE STATUS: Full code. DISPOSITION: Pending patient progress. However, she will likely be discharged home with close outpatient followup in the next 1 to 2 days. Job ID: [id number]
[2019-05-30] MEDS: Acetaminophen/Codeine 30-300mg Tablet PO PRN ×2 (04:10→10:47)
[2019-05-30] MEDS: methylPREDNISolone Sod Succ 40 MG VIAL IVP SCH ×2 (06:20→13:05)
[2019-05-30] MEDS: Ketorolac Tromethamine 30 MG/ML VIAL IVP PRN ×2 (06:24→13:11)
[2019-05-30] MEDS ORDERED: Carvedilol 6.25 MG TAB PO SCH (08:00)
[2019-05-30 08:17] LABS: #Lymphocytes 1.1 thou/uL (1.20-3.40); #Monocytes 0.6 thou/uL (0.11-0.59); #Neutrophils 12.6 thou/uL (1.40-6.50); %Basophils 0.2 % (0.0-1.0); %Eosinophils 0.1 % (0.0-10.0); %Lymphocytes 7.6 % (21.0-51.0); %Monocytes 4.4 % (0.0-10.0); %Neutrophils 87.8 % (42.0-75.0); Hemoglobin 12.4 g/dL (12.0-16.0); Mean Corpuscular HGB CONC 31.1 g/dL (32.0-36.0); Mean Platelet Volume 8.2 fL (7.4-10.4); Platelet Count 215 thou/uL (130-400); RBC Distribution Width 15.7 % (11.5-14.5); Red Blood Cell (RBC) Count 4.58 mill/uL (4.20-5.40); White Blood Cell (WBC) Count 14.4 thou/uL (4.8-10.8)
[2019-05-30 08:36] LABS: Lactic Acid 3.6 mmol/L (0.5-2.2)
[2019-05-30 08:43] LABS: Anion Gap 15 mmol/L (10-20); BUN (Urea Nitrogen) 14 mg/dL (7.0-18.7); CK (CPK) 68 U/L (29-168); Calc. Creatinine Clearance 142 mL/min (70-130); Calcium 9.5 mg/dL (7.8-10.44); Carbon Dioxide 21 mmol/L (22-29); Chloride 106 mmol/L (98-107); Estimated GFR-MDRD Greater than 90; Glucose 128 mg/dL (70-105); Sodium 138 mmol/L (136-145)
[2019-05-30] MEDS ORDERED: Lidocaine Patch Removal 1 EACH TOP SCH (09:00)
[2019-05-30] MEDS ORDERED: Estradiol 1 MG TAB PO SCH (09:00)
[2019-05-30] MEDS ORDERED: DULoxetine 60 MG CAP PO SCH (09:00)
[2019-05-30] MEDS ORDERED: Nicotine 21 MG PATCH TOP SCH (09:00)
[2019-05-30] MEDS ORDERED: Furosemide 20 MG TAB PO SCH (09:00)
[2019-05-30] MEDS ORDERED: Sodium Chloride 0.9% 1,000 ML IV SCH (10:30)
--- NOTE | 2019-05-30 10:43 | PDOC.EVN ---
Event Note - Event Note Event Note: Went to assess and examine patient, she was sitting up reaching for her cellphone property management supervisor as I was entering the room, as soon as I spoke patient fell back into the bed, and laid still. Not responding, following me with her eyes as I went to the other side. Floppy arms, then began to move her chest as if she had labored breathing. Good breathsounds on exam. Sats 95% on RA and HR 94. Dr. Rowland nearby and came to lay eyes on patient. Once I returned to the room with him she was pointing to her neck with her left arm which previously she could not move or squeeze my hand with. Nodded yes when asked if she felt her throat closing. On Exam: Sats and HR remain normal. BP stable. Normocephlic and atraumatic. PERRLA. Not opening her mouth. Again began to mimic labored breathing but sats normal. Lungs clear. Heart sounds normal. No apparent chest wall tenderness. HR checked manually and normal. No apparent abdominal discomfort. No guarding/rigidity. Plantar reflexes intact. No lower leg swelling/edema. Labs today notable for WCC 14 (started on Solumedrol Q6H yesterday). Lactic acid 3.1, unsure if improved or worse from yesterday as no level to compare to. Continue current treatment. Per Dr. Rowland, we will continue Neuro checks Q4H. Patient known to malinger. ADDENDUM: Patient now asking for ativan. Advised given recent episode with her breathing, we will hold on ativan.
[2019-05-30] MEDS: valACYclovir 500 MG TAB PO SCH (11:08)
[2019-05-30] MEDS: Gabapentin 300 MG CAP PO SCH (11:08)
[2019-05-30 12:10] LABS: Bilirubin Negative (Negative); Blood, Urine Negative (Negative); Clarity Clear (Clear); Glucose, Urine (Dipstick) 70 mg/dL (Negative); Leukocyte Negative Leu/uL (Negative); Nitrite Negative (Negative); Protein, Urine (Dipstick) Negative (Neg-Trace); RBC/HPF 0-3 HPF (0-3); Squamous Epithelial 0-3 HPF (0-3); Urobilinogen Normal mg/dL (Less than 2); WBC/HPF 0-3 HPF (0-3)
[2019-05-30 12:20] LABS: Amphetamine Not Detected (NotDetected); Barbiturates Screen Not Detected (NotDetected); Benzodiazepine Screen Detected (NotDetected); Cocaine Metabolite Screen Not Detected (NotDetected); Medtox Control Line Valid? VALID (VALID); Medtox Reader # READER 1; Methadone Not Detected (NotDetected); Methamphetamine Not Detected (NotDetected); Opiate Screen Detected (NotDetected); Oxycodone Screen Not Detected (NotDetected); Phencyclidine (PCP) Not Detected (NotDetected); THC/Cannabinoid Screen Not Detected (NotDetected); Tricyclic Screen Not Detected (NotDetected)
[2019-05-30 12:23] LABS: Bacteria/HPF Rare-Few HPF (None Seen)
[2019-05-30 12:24] LABS: Urine Culture Reflex No No
[2019-05-30] MEDS: ALPRAZolam 0.5 MG TAB PO PRN (13:11)
[2019-05-30] MEDS ORDERED: traMADol HCl 50 MG TAB PO SCH (14:45)
[2019-05-30 15:37] VITALS: BP 118/56; TEMP 97.8
[2019-05-30] MEDS ORDERED: Pramipexole Di-HCl 1 MG TAB PO SCH (21:00)
== END 2019-05-30 16:30 | disposition home or self-care (01) ==
LOC: ERS 13:45 → 2SW 15:37
PROVIDERS: ADMIT Internal Medicine; ATTEND Internal Medicine
DX: J44.1 Chronic obstructive pulmonary disease with (acute) exacerbation (principal); B01.9 Varicella without complication; M54.5 Low back pain; G89.29 Other chronic pain; E11.40 Type 2 diabetes mellitus with diabetic neuropathy, unspecified; I10 Essential (primary) hypertension; I25.10 Atherosclerotic heart disease of native coronary artery without angina pectoris; F41.9 Anxiety disorder, unspecified; F32.9 Major depressive disorder, single episode, unspecified; I25.2 Old myocardial infarction; F17.210 Nicotine dependence, cigarettes, uncomplicated; Z88.0 Allergy status to penicillin; Z88.1 Allergy status to other antibiotic agents; Z88.5 Allergy status to narcotic agent; Z88.8 Allergy status to other drugs, medicaments and biological substances; Z79.899 Other long term (current) drug therapy
CPT/HCPCS: 36415; 36416; 71045; 71275; 72131; 80048; 80053; 80306; 81001; 82550; 83605; 84484; 85025; 87040; 93005; 93010; 94640; 96361; 96365; 96367; 96374; 96375; 96376; 99406; G0378; J0456; J0696; J1885; J2270; J2920; J3490; J7050; J7611; J7620; Q9966

== ENCOUNTER 2019-06-01 21:23 | Observation (INO) | payer BC ==
--- NOTE | 2019-06-01 21:56 | RAD ---
EXAM: XR Hip Rt 2-3 View PROVIDED CLINICAL HISTORY: Pain FINDINGS: There is no evidence for fracture or other acute osseous abnormality. Alignment appears anatomic. Rosemarie nt spaces appear preserved. IMPRESSION: No evidence for an acute osseous abnormality. If there is persistent clinical concern, conservative m anagement and follow-up imaging advised.
--- NOTE | 2019-06-01 21:57 | RAD ---
EXAM: XR Pelvis AP STANDARD PROVIDED CLINICAL HISTORY: Pain FINDINGS: There is no evidence for fracture or other acute osseous abnormality. Alignment appears anatomic. Rosemarie nt spaces appear preserved. IMPRESSION: No evidence for an acute osseous abnormality. If there is persistent clinical concern, conservative m anagement and follow-up imaging advised.
[2019-06-01] MEDS ORDERED: Ketorolac Tromethamine 60 MG/2 ML VIAL ONE (22:28)
--- NOTE | 2019-06-01 23:20 | CT ---
EXAM: CT Pelvis WO Con PROVIDED CLINICAL HISTORY: Pain COMPARISON: None FINDINGS: There is no evidence for fracture. Alignment appears anatomic. No regional joint effusion is evident. There is stranding of the fat surrounding the right femoral vessels. IMPRESSION: 1. No evidence for fracture. 2. Nonspecific fat stranding about the right femoral vessels. Sonographic correlation to exclude DVT may be useful.
--- NOTE | 2019-06-01 23:23 | CT ---
EXAM: CT Lumbar Spine WO Con PROVIDED CLINICAL HISTORY: Back pain COMPARISON: 05/29/2019 FINDINGS: No evidence for fracture. Degenerative changes as recently described appear not significantly changed . Foraminal narrowing left of midline at L4-5 and right of midline at L2-3 are redemonstrated. IMPRESSION: No evidence for fracture.
[2019-06-01] MEDS ORDERED: Fentanyl 100 MCG/2 ML VIAL ONE (23:57)
[2019-06-02] MEDS ORDERED: Fentanyl 100 MCG/2 ML VIAL ONE (03:06)
[2019-06-02] MEDS ORDERED: Acetaminophen 1,000 MG in Premix Bag 1 BAG IVPB SCH (05:30)
--- NOTE | 2019-06-02 07:51 | MRI ---
PRELIMINARY REPORT/[facility]/EMERGENCY AFTER HOURS PROCEDURE: EXAM: MR Lumbar Spine Without and With Contrast. EXAM DATE/TIME: 06/02/2019 1:12 AM CLINICAL HISTORY: 48 years old, female; Low back pain; Patient HX: F48 reports to ED with C/O right hip/buttock and lower back pain onset today after tripping on a log. Patient reports she tripped and 'twisted" her hi p and reports hearing a "pop" , denies fall. Patient report she "can't feel or move my leg" and that is just "feels funny. " patient reports some bladder incontinence that started a few days ago, patient report s she has seen her pain management doctor about this. [facility] and reports they are "checking to get a surgeon. " patient reports she has 2 bulging disks in her back, denies having any prior surgeries. TECHNIQUE: Imaging protocol: Multiplanar magnetic resonance images of the lumbar spine without and with intravenous contrast. COMPARISON: No relevant prior studies available. FINDINGS: Vertebrae: Unremarkable. Spinal cord: Normal signal. No cord compression. T12-L1: Mild disc bulges noted at T11-T12 and T12-L1 resulting in mild spinal canal stenosis at T11- T12 assuming a 5 lumbar vertebral body count. L1-L2: No significant disc disease. No significant spinal stenosis. L2-L3: At L2-L3 there is a moderate central disc bulge resulting in moderate spinal canal stenosis and neuroforaminal narrowing. L3-L4: At L3-L4 there is a mild disc bulge resulting in mild spinal canal stenosis and neuroforaminal narrowing. L4-L5: At L4-L5 there is a LEFT paracentral disc bulge resulting in mild spinal canal stenosis and mild to moderate RIGHT neural foraminal narrowing as well as trace anterolisthesis of L4 and L5. L5-S1: No significant disc disease. No significant spinal stenosis. Soft tissues: Unremarkable. IMPRESSION: Mild to moderate degenerative disc disease most prominent at L2-L3 resulting in moderate spinal canal stenosis as well as moderate LEFT neuroforaminal narrowing at L4-L5. Thank you for allowing us to participate in the care of your patient. Dictated and Authenticated by: Kilo Fischer MD 06/02/2019 5:01 AM Central Time ([place] & [place]) FINAL REPORT LUMBAR SPINE MRI WITH AND WITHOUT CONTRAST: Date: 06/02/19 HISTORY: Pain, radiculopathy, trauma. FINDINGS: I agree with the preliminary report. Sagittal STIR imaging demonstrates no focal area of os seous marrow edema. On the basis of 5 lumbar type vertebral bodies, conus medullaris terminates at the T12-L1 level. T12-L1: Mild bilateral facet hypertrophy. There is disc space narrowing and disc desiccation with mil d anterior osteophyte formation and minimal disc bulge. No significant central canal or neural foraminal stenosis. L1-2: Intervertebral disc height and signal intensity appears within normal limits. No significant ce ntral canal or neural foraminal stenosis L2-3: There is disc space narrowing and disc desiccation with anterior osteophyte formation. There is disc bulge with a small central disc protrusion demonstrating mild superior migration. There is moderate bilateral facet hypertrophy, left greater than right. Mild central canal stenosis and mild r ight neural foraminal stenosis. L3-4: There is disc space narrowing and disc desiccation with mild disc bulge. No significant central canal stenosis. Bilateral facet hypertrophy present with mild left neural foraminal stenosis. L4-5: There is mild anterolisthesis measuring 3-4 mm. There is prominent facet hypertrophy bilaterall y with ligamentum flavum hypertrophy, left greater than right. There is mild central canal stenosis/left lateral recess stenosis. There is mild/moderate left neural foraminal stenosis. L5-S1: There is bilateral facet hypertrophy, right greater than left. Intervertebral disc height and signal intensity is within normal limits with no significant central canal or neural foraminal stenosis. The imaged retroperitoneal structures demonstrate no acute findings. The postcontrast imaging demonstrates no abnormal enhancement. IMPRESSION: Degenerative changes as detailed above. No severe central canal or neural foraminal stenosis noted wi thin the lumbar spine. Code QA Transcribed Date/Time: 06/02/2019 8:52 AM
--- NOTE | 2019-06-02 07:55 | MRI ---
PRELIMINARY REPORT/[facility]/EMERGENCY AFTER HOURS PROCEDURE: Addendum created by Kilo Fischer MD on 06/02/2019 4:54 AM Central Time ([place] & [place]) Disc disease may be present at T11 and T12, better visualized on lumbar spine MRI from same day. Initial Report created on 06/02/2019 4:51 AM Central Time ([place] & [place]) EXAM: MR Thoracic Spine Without Contrast EXAM DATE/TIME: 06/02/2019 12:51 AM CLINICAL HISTORY: 48 years old, female; Pain in thoracic spine; Patient HX: F48 reports to ED with C/O right hip/buttoc k and lower back pain onset today after tripping on a log. Patient reports she tripped and 'twisted" he r hip and reports hearing a "pop" , denies fall. Patient report she "can't feel or move my leg" and jose t is just "feels funny. " patient reports some bladder incontinence that started a few days ago, patient reports she has seen her pain management doctor about this. Patient reports seeing [facility] for pain management and reports they are "checking to get a surgeon. " patient reports she has 2 bulging disks in her back, denies having any prior surgeries. TECHNIQUE: Imaging protocol: Multiplanar magnetic resonance images of the thoracic spine without contrast. COMPARISON: No relevant prior studies available. FINDINGS: Vertebrae: There is anterior spinal fusion from C3 to through T1. Spinal cord: Normal signal. No cord compression. Discs/Spinal canal/Neural foramina: No significant disc disease. No significant spinal stenosis. Soft tissues: Unremarkable. IMPRESSION: No acute thoracic spine pathology. Thank you for allowing us to participate in the care of your patient. Dictated and Authenticated by: Kilo Fischer MD 06/02/2019 4:51 AM Central Time ([place] & [place]) FINAL REPORT THORACIC SPINE MRI WITH AND WITHOUT CONTRAST: Date: 06/02/19 COMPARISON: None. HISTORY: Pain, radiculopathy, paresthesias. FINDINGS: I agree with the preliminary report. The [employer] imaging demonstrates anterior discectomy and fusion hardware within the lower cervical spin e at C5, C6, and C7 levels. Mild anterolisthesis is suspected at C7-T1. The sagittal STIR imaging demonstrates no focal area of osseous marrow edema. No significant anteroli sthesis or retrolisthesis noted within the thoracic spine. There is no significant neural foraminal stenosis on either side at any level within the thoracic spi ne. No significant central canal stenosis is noted within the thoracic spine at any level. No focal area of abnormal signal intensity is identified within the thoracic cord on the T2-weighted imaging. Postcontrast imaging demonstrates no abnormal enhancement involving the imaged osseous structures, in tervertebral discs, or contents of the thecal sac within the thoracic region. IMPRESSION: No significant central canal or neural foraminal stenosis within the thoracic spine. Transcribed Date/Time: 06/02/2019 8:27 AM
--- NOTE | 2019-06-02 10:01 | HP ---
PRIMARY CARE PROVIDER: Dr. Melvina Copeland. CHRONIC PAIN DOCTOR: Dr. Rasheed. HISTORY OF PRESENT ILLNESS: The patient is recently admitted to the hospital here on 05/29/2019 with shortness of breath and worsening back pain radiating down her right leg. During her hospital admission, the patient did some unusual things and was thought to be malingering. There is no discharge summary. However, the patient was discharged. She came back to the emergency room on 06/01. She was evaluated and multiple x-rays were done. Her complaints were "cut my sciatic nerve out," pain x2 weeks. She says she twisted her back after tripping on a lawn. She has had epidural injections at Dr. Rasheed's office. In the emergency room, lumbar spine MRI was done. Impression was [id number] degenerative diseases, most prominent at L2, L3. She had left foraminal stenosis moderate at L4-L5. She also had thoracic spine MRI, which revealed no acute thoracic spine pathology. No canal stenosis or neuroforaminal stenosis. The patient's past medical history is pertinent. This is the night time. She is being referred to the hospital for admission this year. PAST MEDICAL HISTORY: Includes hypertension, COPD, coronary artery disease and diabetes mellitus, type 2. PAST SURGICAL HISTORY: Appendectomy, hysterectomy, cardiac cath, ulnar nerve transposition to both arms, tonsillectomy, bladder surgery, cyst removal. PSYCHIATRIC HISTORY: Includes anxiety. SOCIAL HISTORY: No alcohol or illicit drug use. She states she has been trying to reduce her cigarettes from two packs a day to she says she is only smoking a few cigarettes a day now. FAMILY HISTORY: Mother of COPD. Father at 79 with heart disease. The patient's code status is full. She did not name a next of kin. CURRENT MEDICATIONS: 1. Trazodone 50 mg at bedtime. 2. Tizanidine 1 to 2 tabs daily p.r.n. 3. Chantix 1 mg daily in the past. She is now on a nicotine patch. 4. Montelukast 10 mg a day. 5. Melatonin 3 mg at bedtime. 6. Neurontin 300 mg twice a day. 7. Lasix 20 mg a day. 8. Estradiol 2 mg a day. 9. Decadron 4 mg twice a day. 10. Cymbalta 60 mg a day. 11. Coreg 6.25 mg twice a day. 12. Acetaminophen with codeine No. 3 one to two tabs every 48 hours for pain. 13. Xanax 0.5 mg t.i.d. p.r.n. 14. Albuterol nebulizers. ALLERGIES: TO GEODON, PENICILLINS, DOXYCYCLINE, HALDOL, KETAMINE, LEVOFLOXACIN, LORATADINE, PENCILLIN-G. REVIEW OF SYSTEMS: GENERAL: Occasional headache. No dizziness or fainting. EYES: No double vision, blurred vision, flashing light. EAR, NOSE, AND THROAT: She states she has vocal cord dysfunction, which leads to trouble breathing. Her speech seems normal. No nose bleeding. No ear pain or drainage. CHEST: She has vague chest pain off and on, none currently. No orthopnea or paroxysmal nocturnal dyspnea. RESPIRATORY: She has wheezing and states she still smokes, but she is trying to quit. GASTROINTESTINAL: No nausea, vomiting, diarrhea, or constipation. GENITOURINARY: She has occasional stress incontinence. No bleeding. MUSCULOSKELETAL: Both legs swell. NEUROLOGIC: No strokes, seizures, or focal weakness. PSYCHIATRIC: Anxiety. SKIN: No bruising, bleeding, or rash. HEME/LYMPH: No tender or swollen lymph nodes in the axilla, inguinal, or cervical area. PHYSICAL EXAMINATION: VITAL SIGNS: Blood pressure 144/93, pulse 66, respirations 18. She rates her pain is an 8 out of 10. There are no obvious signs of distress. Room air sat is 96 to 100. HEAD, EYES, EARS, NOSE, AND THROAT: Revealed pupils are equal, round, and reactive to light. Extraocular movements are intact. Sclerae are white. Tympanic membranes are clear. Nose clear. Oral mucous membranes are wet. Dental hygiene is good. NECK: Supple without jugular venous distention, adenopathy, or thyromegaly. CHEST: Clear to percussion. She has coarse breath sounds in all tay. There is no respiratory distress. No focal findings. HEART: Regular rate and rhythm. First and second heart sounds clear. There are no murmurs or gallops. ABDOMEN: Soft. Bowel sounds are normal. There is no hepatosplenomegaly. No mass. No rebound. EXTREMITIES: 1 to 2+ edema. No cyanosis or clubbing. SKIN: Warm and dry without bruises or rash. HEME/LYMPH: No tender or swollen lymph nodes in axilla, inguinal, or cervical area. NEUROLOGICAL: Cranial nerves 2 through 12 are intact. Deep tendon reflexes symmetric. Toes downgoing. STUDIES: The only studies available are the MRIs of thoracic and lumbar spine, which show no acute abnormality. This has been discussed with the patient. I have advised her that I have nothing to offer her other than physical therapy. My best suggestion is for her to go home and see Dr. Rasheed or chronic pain doctor to see if he has anything to add. FINAL DIAGNOSES: 1. Chronic pain for 2 months with no significant lesions to warrant neurosurgical consult, etc. Already on Decadron and narcotics per chronic pain doctor and/or primary care doctor. 2. Diabetes mellitus, type 2. 3. Chronic obstructive pulmonary disease. 4. Tobacco abuse. 5. Hypertension. 6. History of coronary artery disease. PLAN: Continue home medicines. See chronic pain physician. Job ID: [id number]
[2019-06-02] MEDS ORDERED: Gadobenate Dimeglumine 529 MG/1 ML (20ML VIAL) ONE (14:02)
== END 2019-06-02 10:14 | disposition home or self-care (01) ==
LOC: ERS 21:23 → ERHOLD 06-02 05:39
PROVIDERS: ADMIT Family Medicine; ATTEND Family Medicine
DX: G89.29 Other chronic pain (principal); M51.36 Other intervertebral disc degeneration, lumbar region; M48.061 Spinal stenosis, lumbar region without neurogenic claudication; E11.9 Type 2 diabetes mellitus without complications; J44.9 Chronic obstructive pulmonary disease, unspecified; I10 Essential (primary) hypertension; I25.10 Atherosclerotic heart disease of native coronary artery without angina pectoris; F41.9 Anxiety disorder, unspecified; I25.2 Old myocardial infarction; F17.210 Nicotine dependence, cigarettes, uncomplicated; Z88.8 Allergy status to other drugs, medicaments and biological substances; Z88.0 Allergy status to penicillin; Z88.1 Allergy status to other antibiotic agents; Z88.4 Allergy status to anesthetic agent; Z88.5 Allergy status to narcotic agent; W18.40XA Slipping, tripping and stumbling without falling, unspecified, initial encounter
CPT/HCPCS: 72131; 72157; 72158; 72170; 72192; 96365; 96372; 96375; 96376; A9577; G0378; J0131; J1885; J3010

== ENCOUNTER 2019-06-15 06:23 | Inpatient (IN) | payer BC ==
[2019-06-15] MEDS ORDERED: methylPREDNISolone Sod Succ/PF 125 MG/2 ML VIAL ONE (06:51)
[2019-06-15] MEDS ORDERED: Sodium Chloride For Inhalation 0.9% 3 ML NEB ONE (07:03)
[2019-06-15] MEDS ORDERED: Albuterol Sulfate 2.5 mg/0.5 ml Neb ONE (07:03)
[2019-06-15 07:09] LABS: #Basophils 0.1 thou/uL (0.0-0.2); #Eosinphils 0.5 thou/uL (0.0-0.7); #Lymphocytes 3.1 thou/uL (1.20-3.40); #Monocytes 1.3 thou/uL (0.11-0.59); #Neutrophils 7.6 thou/uL (1.40-6.50); %Basophils 0.8 % (0.0-1.0); %Eosinophils 3.7 % (0.0-10.0); %Lymphocytes 24.6 % (21.0-51.0); Mean Corpuscular Volume 87.4 fL (78.0-98.0); Mean Platelet Volume 8.1 fL (7.4-10.4); Platelet Count 231 thou/uL (130-400); RBC Distribution Width 15.8 % (11.5-14.5); Red Blood Cell (RBC) Count 4.65 mill/uL (4.20-5.40); White Blood Cell (WBC) Count 12.5 thou/uL (4.8-10.8)
[2019-06-15 07:20] LABS: ALT (SGPT) 13 U/L (8-55); AST (SGOT) 14 U/L (5-34); Albumin 3.7 g/dL (3.5-5.0); Alkaline Phosphatase 69 U/L (40-150); Anion Gap 11 mmol/L (10-20); BUN (Urea Nitrogen) 15 mg/dL (7.0-18.7); Bilirubin, Total 0.4 mg/dL (0.2-1.2); Calc. Creatinine Clearance 0 mL/min (70-130); Calcium 9.4 mg/dL (7.8-10.44); Carbon Dioxide 27 mmol/L (22-29); Chloride 106 mmol/L (98-107); Estimated GFR-MDRD 89; Globulin 3.3 g/dL (2.4-3.5); Glucose 104 mg/dL (70-105); Potassium 3.7 mmol/L (3.5-5.1); Sodium 140 mmol/L (136-145)
[2019-06-15] MEDS ORDERED: Magnesium 2 GM/50 ML BAG (IN WATER) ONE (07:38)
--- NOTE | 2019-06-15 07:39 | RAD ---
EXAM: Single view of the chest HISTORY: Dyspnea COMPARISON: 05/29/2019 FINDINGS: Single view of the chest shows a normal sized cardiomediastinal silhouette. There is no mami dence of consolidation, mass, or pleural effusion. Hardware is seen at the cervicothoracic junction. IMPRESSION: No evidence of acute cardiopulmonary disease
[2019-06-15 08:39] LABS: Actual Bicarbonate (HCO3a) 20.8 mEq/L (22-28); Analyzer IN Cardio ER; Base Excess (BEa) -3.7 mEq/L (-2.0 to +3.0); CO2 Tension 35.8 mmHg (35.0-45.0); Calcium, Ionized 1.21 mmol/L (1.12-1.30); Hemoglobin (Hb) 13.6 g/dL (12.0-16.0); O2 Tension (PaO2) 66.1 mmHg (80.0-100.0); Potassium - ABG Lab 3.92 mmol/L (3.70-5.30); pH, Arterial 7.38 (7.35-7.45)
[2019-06-15 08:41] LABS: Puncture Site L.R.
[2019-06-15] MEDS ORDERED: Azithromycin 500 MG in Sodium Chloride 0.9% 250 ML 250 ML IVPB SCH (09:00)
[2019-06-15] MEDS ORDERED: Azithromycin 500 MG VIAL ONE (09:01)
[2019-06-15] MEDS ORDERED: Ibuprofen 200 MG TAB ONE (09:57)
[2019-06-15] MEDS ORDERED: Acetaminophen 325 MG TAB PO PRN (13:43)
[2019-06-15] MEDS ORDERED: Senokot S 8.6-50 MG TAB PO PRN (13:43)
[2019-06-15] MEDS ORDERED: Acetaminophen 650 MG Suppository PR PRN (13:43)
--- NOTE | 2019-06-15 14:33 | HP ---
PRIMARY CARE PHYSICIAN: Dr. Melvina Copeland. CHIEF COMPLAINT: Shortness of breath. HISTORY OF PRESENT ILLNESS: Ms. Rodriguez is a pleasant 48-year-old lady, who was seen at [facility] on June 15, 2019. She was hospitalized at this facility from May 29 to of this year for COPD and chronic lumbar back pain. She has been hospitalized at this facility multiple times for COPD exacerbation. She reports that she started feeling sick yesterday. At that time, she had a cough that was productive of a pinkish sputum. She woke up today morning with shortness of breath. She reports shortness of breath with exertion. She denies orthopnea or paroxysmal nocturnal dyspnea. She presented to the emergency room because she used DuoNeb at home, which did not help. In the emergency room, she was found to be hypoxemic on arterial blood gases. She was therefore referred to Hospitalist Service for admission. REVIEW OF SYSTEMS: All other systems were reviewed and found to be negative. PAST MEDICAL HISTORY: Hypertension, COPD, coronary artery disease, diabetes mellitus type 2. PAST SURGICAL HISTORY: Appendectomy, hysterectomy, cardiac cath, ulnar nerve transposition to both arms, tonsillectomy, bladder surgery, cyst removal. PSYCHIATRIC HISTORY: Anxiety. SOCIAL HISTORY: The patient denies tobacco use, alcohol use, or recreational drug use. FAMILY HISTORY: Mother of COPD. Father at 79 with heart disease. ALLERGIES: DOXYCYCLINE, GEODON, HALDOL, KETAMINE, LEVAQUIN, LORATADINE, MORPHINE, PENICILLIN, TORADOL, AND ZIPRASIDONE. CURRENT MEDICATIONS: Dictated by Dr. Lara in his history and physical note dated June 02, 2019. PHYSICAL EXAMINATION: GENERAL: On examination, Ms. Rodriguez is awake and alert, not in acute distress. VITAL SIGNS: Blood pressure is 128/61, pulse 84, respiratory rate 19, and oxygen saturation 97% on 3 L of oxygen. She is afebrile. EYES: No scleral icterus, no conjunctival pallor. ENT: Moist mucosal membranes. No oropharyngeal erythema or exudates. NECK: Supple, nontender, trachea is midline. RESPIRATORY: Accessory muscles of breathing are not active. Chest wall movements are symmetric bilaterally. She has diffuse expiratory wheeze, although the wheeze appears to be originating in the throat. CARDIOVASCULAR: S1 and S2 are heard, regular. Peripheral pulses palpable. ABDOMEN: Soft, nontender, bowel sounds heard. NEUROLOGIC: Cranial nerves 2 through 12 are intact. MUSCULOSKELETAL: Power is 5/5 in all 4 extremities. SKIN: No rashes or subcutaneous nodules. LYMPHATIC: No cervical lymphadenopathy. PSYCHIATRIC: Normal mood, normal affect, the patient is oriented to person, place, and time. LABORATORY DATA: Ms. Rodriguez's labs and investigations were reviewed. I reviewed her electrocardiogram, which shows normal sinus rhythm, no ST changes to suggest an acute coronary syndrome. I also reviewed her chest x-ray, which does not show any pulmonary infiltrates. She has leukocytosis with 12,500 white cells, of which 61% are neutrophils, normal hemoglobin, normal platelet count, unremarkable comprehensive metabolic profile, normal troponin-I and arterial blood gas showing pH 7.38, pCO2 of 35.8, and PO2 of 66.1 on FiO2 of 32. ASSESSMENT AND PLAN: Ms. Rodriguez is a pleasant 48-year-old lady, who was seen at [facility] on June 15, 2019. Her problem list includes: 1. Acute hypoxic respiratory failure: Ms. Rodriguez is presenting with acute hypoxic respiratory failure, presumably secondary to chronic obstructive pulmonary disease exacerbation. She will be admitted to the hospital for further management. She is currently not using oxygen at home. 2. Chronic obstructive pulmonary disease exacerbation: She will be treated with oxygen, steroids, bronchodilators, and antibiotics. 3. Coronary artery disease: Appears to be stable, the patient does not complain of any chest pain and has a normal troponin I. 4. Diabetes mellitus type 2: We will start the patient on Accu-Chek and insulin sliding scale. Many thanks for allowing me to participate in your patient's care. Please feel free to contact me with any questions or concerns. LEVEL OF RISK: High. LEVEL OF COMPLEXITY: High. Job ID: [id number]
[2019-06-15] MEDS: methylPREDNISolone Sod Succ 40 MG VIAL IVP SCH ×2 (18:50→23:16)
[2019-06-15] MEDS ORDERED: Nitroglycerin 0.4 MG TAB (25 Tab Bottle) SL PRN (21:15)
[2019-06-15] MEDS ORDERED: Albuterol Sulfate 2.5 mg/3 ml Neb NEB PRN (21:15)
[2019-06-15] MEDS ORDERED: Pramipexole Di-HCl 1 MG TAB PO SCH (21:45)
[2019-06-15] MEDS ORDERED: Carvedilol 6.25 MG TAB PO SCH (21:45)
[2019-06-15] MEDS ORDERED: Pregabalin 50 MG CAP PO SCH (21:45)
[2019-06-15] MEDS ORDERED: Melatonin 3 MG TAB PO SCH (21:45)
[2019-06-15] MEDS ORDERED: traZODone HCl 50 MG TAB PO SCH (22:00)
[2019-06-15] MEDS: Acetaminophen/Codeine 30-300mg Tablet PO PRN (22:09)
[2019-06-15] MEDS: ALPRAZolam 0.5 MG TAB PO PRN (22:11)
[2019-06-15] MEDS ORDERED: Nicotine 21 MG PATCH TOP SCH (22:30)
--- NOTE | 2019-06-16 01:11 | CON ---
DATE OF CONSULTATION: 06/15/2019 HISTORY OF PRESENT ILLNESS: Mely Rodriguez is a 48-year-old female with COPD, followed by Dr. Grey. 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 She unfortunately continues to smoke. She presented with several days of shortness of breath. Subsequently, she has been admitted. She has had no fever. She denies purulent sputum. PAST MEDICAL HISTORY: 1. Remarkable for hypertension. 2. Cervical spine surgery. 3. COPD. She tells me with 40% lung function. 4. History of coronary artery disease. 5. Diabetes. 6. Status post hysterectomy. 7. History of ulnar nerve translocation to both arms. 8. History of bladder surgery. 9. History of tonsillectomy. 10. History of anxiety. She is still smoking two cigarettes a day plus using electronic cigarette. She is not a daily drinker. FAMILY HISTORY: Negative for lung disease in early age. There is a history of heart disease. ALLERGIES: SHE REPORTS INTOLERANCE TO DOXYCYCLINE, GEODON, HALDOL, KETAMINE, LEVAQUIN, LORATADINE, MORPHINE, PENICILLIN, TORADOL, AND ZIPRASIDONE. SOCIAL HISTORY: She is . Her is in the room. She has to him leave the room when I begin the interview and then told me she was not happy with him and they were having a very edison time in their marriage. She also has a 29-year-old daughter, who has been diagnosed with thyroid cancer that is being treated out of town, although she lives here locally and had her thyroid surgery done at [facility]. She is frustrated because her daughter is not letting her help with any of the decisions. REVIEW OF SYSTEMS: Ten-point review of system is otherwise negative. PHYSICAL EXAMINATION: VITAL SIGNS: She is afebrile. Heart rate is 87, respiratory rate is 18, oximetry is 95% on room air, blood pressure is 141/96. HEENT: Pupils are equal. Sclerae anicteric. NECK: Supple. LUNGS: Remarkable for coarse wheezes diffusely. HEART: Regular rhythm. S1 and S2 are normal. ABDOMEN: Soft and nontender. EXTREMITIES: Without clubbing, cyanosis, or edema. NEURO: Grossly nonfocal. Chest x-ray done in the emergency room showed no alveolar infiltrate suggestive of pneumonia. LABORATORY DATA: White count 12.5, hemoglobin 13, platelets 231. Blood gas 7.38, CO2 of 35, PO2 of 66. Electrolytes are normal. Liver enzymes are normal. IMPRESSION: 1. Chronic obstructive pulmonary disease exacerbation. 2. Ongoing smoking. 3. Anxiety, probably severe and probably plays into her current symptoms. Hopefully, she will clinically improve to a point where she can be discharged in 48 to 72 hours. I have explained to her the weight loss will help with her dyspnea on exertion. She is complaining that she could not walk around in [place] without running out of breath. Also explained to her again that smoking cessation is an absolute necessity at this point in time. We will follow while she is in the hospital. She will follow up with Dr. Grey as an outpatient. He is out this week, so will follow while she is in the hospital. TIME SPENT: This is a 50-minute consult, 50% of the time was spent on the unit coordinating care. Job ID: [id number]
[2019-06-16] MEDS ORDERED: Dextrose 50% Abboject 50 ML SYRINGE SLOW IVP PRN (01:58)
[2019-06-16] MEDS ORDERED: HumaLOG 300 UNITS/3 ML VIAL SC PRN (01:58)
[2019-06-16] MEDS ORDERED: Dextrose 5% in Water 1,000 ML IV PRN (01:58)
[2019-06-16 04:36] LABS: #Lymphocytes 1.2 thou/uL (1.20-3.40); #Monocytes 0.4 thou/uL (0.11-0.59); #Neutrophils 10.6 thou/uL (1.40-6.50); %Basophils 0.2 % (0.0-1.0); %Eosinophils 0.1 % (0.0-10.0); %Lymphocytes 9.5 % (21.0-51.0); %Monocytes 3.1 % (0.0-10.0); %Neutrophils 87.2 % (42.0-75.0); Hemoglobin 12.6 g/dL (12.0-16.0); Mean Corpuscular HGB CONC 32.1 g/dL (32.0-36.0); Mean Corpuscular Hemoglobin 28.1 pg (27.0-31.0); Mean Corpuscular Volume 87.6 fL (78.0-98.0); Mean Platelet Volume 8.6 fL (7.4-10.4); Platelet Count 223 thou/uL (130-400); RBC Distribution Width 15.7 % (11.5-14.5); Red Blood Cell (RBC) Count 4.47 mill/uL (4.20-5.40); White Blood Cell (WBC) Count 12.1 thou/uL (4.8-10.8)
[2019-06-16 04:58] LABS: Anion Gap 13 mmol/L (10-20); BUN (Urea Nitrogen) 15 mg/dL (7.0-18.7); Calc. Creatinine Clearance 0 mL/min (70-130); Calcium 9.5 mg/dL (7.8-10.44); Carbon Dioxide 25 mmol/L (22-29); Chloride 107 mmol/L (98-107); Estimated GFR-MDRD Greater than 90; Glucose 127 mg/dL (70-105); Potassium 4.1 mmol/L (3.5-5.1); Sodium 141 mmol/L (136-145)
[2019-06-16] MEDS: methylPREDNISolone Sod Succ 40 MG VIAL IVP SCH ×2 (05:51→15:06)
[2019-06-16] MEDS ORDERED: Carvedilol 6.25 MG TAB PO SCH (08:00)
[2019-06-16] MEDS ORDERED: Enoxaparin Sodium 40 MG/0.4 ML SYRINGE SC SCH (09:00)
[2019-06-16] MEDS ORDERED: Nicotine 21 MG PATCH TOP SCH ×2 (09:00→21:00)
[2019-06-16] MEDS ORDERED: DULoxetine 60 MG CAP PO SCH (09:00)
[2019-06-16] MEDS ORDERED: Pregabalin 50 MG CAP PO SCH (09:00)
[2019-06-16] MEDS ORDERED: tiZANidine HCl 4 MG TAB PO PRN (09:00)
[2019-06-16] MEDS ORDERED: Diazepam 2 MG TAB PO SCH (09:00)
[2019-06-16] MEDS ORDERED: Furosemide 20 MG TAB PO SCH (09:00)
[2019-06-16] MEDS ORDERED: Montelukast Sodium 10 mg Tablet PO SCH (09:00)
[2019-06-16] MEDS ORDERED: Estradiol 1 MG TAB PO SCH (09:00)
[2019-06-16] MEDS ORDERED: Azithromycin 500 MG in Sodium Chloride 0.9% 250 ML 250 ML IVPB SCH (09:00)
[2019-06-16] MEDS ORDERED: Varenicline Tartrate 0.5 MG TAB PO SCH (09:00)
[2019-06-16 09:04] VITALS: TEMP 97.4
[2019-06-16] MEDS: Acetaminophen/Codeine 30-300mg Tablet PO PRN (09:40)
[2019-06-16 09:49] VITALS: BP 141/96
[2019-06-16 10:38] VITALS: BMI 28.8
[2019-06-16] MEDS ORDERED: Morphine 2 MG/ML SYRINGE SLOW IVP PRN (11:30)
--- NOTE | 2019-06-16 13:31 | PRG ---
DATE OF SERVICE: 06/16/2019 SUBJECTIVE: Ms. Rodriguez says she is feeling better. Her only complaint is pain. She denies shortness of breath. OBJECTIVE: VITAL SIGNS: Blood pressure is 141/96, heart rate is 84. She is afebrile, respiratory rate is 18, oximetry is on room air. LUNGS: Clear. HEART: Regular rhythm. ABDOMEN: Soft. EXTREMITIES: Without asymmetry. LABORATORY DATA: White count 12.1, hemoglobin 12.6, platelets 223. Electrolytes are normal. IMPRESSION: Chronic obstructive pulmonary disease exacerbation. She would go home with the 10- to 14-day of steroids taper. She should continue her bronchodilators. She can follow up with Dr. Grey in 3 to 4 weeks. She tells me she has an appointment with the pain doctor on for herniated disk. Job ID: [id number]
[2019-06-16] MEDS: ALPRAZolam 0.5 MG TAB PO PRN (15:10)
--- NOTE | 2019-06-16 15:41 | DIS ---
DATE OF ADMISSION: 06/15/2019 DATE OF DISCHARGE: 06/16/2019 PRIMARY CARE PROVIDER: Arti Bradley MD DISCHARGE DIAGNOSES: 1. Acute hypoxic respiratory failure. 2. Chronic obstructive pulmonary disease exacerbation. CONSULTATIONS DURING THIS HOSPITALIZATION: Pulmonary and Critical Care Medicine, Dr. Turner. DISCHARGE MEDICATIONS: 1. Diazepam 2 mg 2 times a day. 2. Cymbalta 60 mg daily. 3. Estradiol 2 mg daily. 4. Melatonin 3 mg at bedtime. 5. Montelukast 10 mg daily. 6. Pramipexole 2 mg at bedtime. 7. Lyrica 50 mg 2 times a day. 8. Trazodone 50 mg at bedtime. 9. Chantix 1 mg daily. 10. Coreg 6.25 mg 2 times a day. 11. Lasix 20 mg daily. 12. Nicotine 21 mg patch daily. 13. Prednisone taper over 2 weeks. 14. Tylenol No. 3 p.r.n. 15. Xanax p.r.n. 16. Nitroglycerin p.r.n. 17. Ventolin nebulizer p.r.n. 18. Tizanidine p.r.n. HOSPITAL COURSE: Ms. Rodriguez is a pleasant 48-year-old lady, who was admitted to [facility] on June 15, 2019, for acute hypoxic respiratory failure and COPD exacerbation. She was seen by Pulmonary and Critical Care Medicine. She improved with oxygen, steroids, and bronchodilators. She also has chronic back pain. She has an appointment with a pain specialist in [place] in 2 days. She has been advised to keep that appointment. She has also been advised to stop smoking. On the day of discharge, she has a white count of 12,100, hemoglobin 12.6, platelet count 223, normal electrolytes, and normal creatinine. CONDITION OF PATIENT ON THE DAY OF DISCHARGE: Stable. I assessed Ms. Rodriguez on the day of discharge. She denies any chest pain or shortness of breath. Vital signs are stable. S1 and S2 are heard, regular. Lungs are clear to auscultation bilaterally. DISCHARGE DESTINATION: Home. TIME SPENT: Total amount of time spent coordinating this discharge: 32 minutes. Job ID: [id number]
[2019-06-16] MEDS ORDERED: traZODone HCl 50 MG TAB PO SCH (21:00)
[2019-06-16] MEDS ORDERED: Melatonin 3 MG TAB PO SCH (21:00)
[2019-06-16] MEDS ORDERED: Pramipexole Di-HCl 1 MG TAB PO SCH (21:00)
== END 2019-06-16 15:34 | disposition home or self-care (01) | DRG 189 ==
LOC: ERS 06:23 → ERHOLD 09:18 → ONC 14:57
PROVIDERS: ADMIT Internal Medicine; ATTEND Internal Medicine
DX: J96.01 Acute respiratory failure with hypoxia (principal); J44.1 Chronic obstructive pulmonary disease with (acute) exacerbation; G89.29 Other chronic pain; I25.10 Atherosclerotic heart disease of native coronary artery without angina pectoris; E11.9 Type 2 diabetes mellitus without complications; F41.9 Anxiety disorder, unspecified; I25.2 Old myocardial infarction; Z90.49 Acquired absence of other specified parts of digestive tract; Z87.891 Personal history of nicotine dependence; Z90.710 Acquired absence of both cervix and uterus; Z88.1 Allergy status to other antibiotic agents; Z88.5 Allergy status to narcotic agent; Z88.0 Allergy status to penicillin; Z88.8 Allergy status to other drugs, medicaments and biological substances; Z98.890 Other specified postprocedural states
CPT/HCPCS: 36415; 36416; 71045; 80048; 80053; 82805; 84484; 85025; 87040; 93005; 94640; 94644; 96365; 96366; 96367; 96375; J0456; J1650; J2270; J2920; J2930; J3475; J7050; J7611; J7620

== ENCOUNTER 2019-06-24 06:36 | Observation (INO) | payer BC ==
[2019-06-24] MEDS ORDERED: methylPREDNISolone Sod Succ/PF 125 MG/2 ML VIAL ONE (06:42)
[2019-06-24] MEDS ORDERED: Albuterol Sulfate 2.5 mg/0.5 ml Neb ONE (07:08)
[2019-06-24] MEDS ORDERED: Magnesium 2 GM/50 ML BAG (IN WATER) ONE (07:16)
[2019-06-24 07:23] LABS: #Basophils 0.1 thou/uL (0.0-0.2); #Eosinphils 0.5 thou/uL (0.0-0.7); #Lymphocytes 3.9 thou/uL (1.20-3.40); #Monocytes 1.3 thou/uL (0.11-0.59); #Neutrophils 4.7 thou/uL (1.40-6.50); %Eosinophils 5.1 % (0.0-10.0); %Lymphocytes 36.6 % (21.0-51.0); %Monocytes 12.5 % (0.0-10.0); %Neutrophils 44.9 % (42.0-75.0); Hemoglobin 13.1 g/dL (12.0-16.0); Mean Corpuscular HGB CONC 32.5 g/dL (32.0-36.0); Mean Corpuscular Hemoglobin 27.6 pg (27.0-31.0); Mean Platelet Volume 8.3 fL (7.4-10.4); Platelet Count 232 thou/uL (130-400); Red Blood Cell (RBC) Count 4.74 mill/uL (4.20-5.40); White Blood Cell (WBC) Count 10.6 thou/uL (4.8-10.8)
[2019-06-24 07:33] LABS: Actual Bicarbonate (HCO3a) 24.3 mEq/L (22-28); Analyzer IN Cardio ER; Base Excess (BEa) -0.3 mEq/L (-2.0 to +3.0); CO2 Tension 39.6 mmHg (35.0-45.0); Calcium, Ionized 1.17 mmol/L (1.12-1.30); Carboxyhemoglobin (COHb) 1.7 gm% (0.0-3.0); Hemoglobin (Hb) 13.8 g/dL (12.0-16.0); Potassium - ABG Lab 3.63 mmol/L (3.70-5.30); pH, Arterial 7.41 (7.35-7.45)
[2019-06-24 07:34] LABS: O2 Tension (PaO2) 56.3 mmHg (80.0-100.0); Puncture Site RRA
[2019-06-24 07:38] LABS: ALT (SGPT) 14 U/L (8-55); AST (SGOT) 14 U/L (5-34); Albumin 3.7 g/dL (3.5-5.0); Alkaline Phosphatase 63 U/L (40-150); Anion Gap 11 mmol/L (10-20); BUN (Urea Nitrogen) 12 mg/dL (7.0-18.7); Bilirubin, Total 0.4 mg/dL (0.2-1.2); Calc. Creatinine Clearance 0 mL/min (70-130); Calcium 9.4 mg/dL (7.8-10.44); Carbon Dioxide 24 mmol/L (22-29); Chloride 106 mmol/L (98-107); Estimated GFR-MDRD 82; Glucose 100 mg/dL (70-105); Potassium 3.7 mmol/L (3.5-5.1); Protein, Total 6.7 g/dL (6.0-8.3); Sodium 137 mmol/L (136-145)
--- NOTE | 2019-06-24 08:03 | RAD ---
SINGLE VIEW CHEST: HISTORY: Dyspnea. COMPARISON: 06/15/2019 FINDINGS: Single view of the chest show normal sized cardiomediastinal silhouette. There is no evidence of cons olidation, mass, or pleural effusion. The bones are unremarkable. IMPRESSION: No evidence of acute cardiopulmonary disease. POS: CET
[2019-06-24 09:31] LABS: Troponin I Less than 0.010 ng/mL (< 0.028)
[2019-06-24] MEDS ORDERED: Acetaminophen 325 MG TAB PO PRN (10:53)
[2019-06-24] MEDS ORDERED: Ondansetron ODT 4 MG TAB PO PRN (10:53)
[2019-06-24] MEDS ORDERED: Ondansetron PF 4 MG/2 ML Vial IVP PRN (10:53)
[2019-06-24 11:01] VITALS: BMI 27.8
[2019-06-24] MEDS ORDERED: Carvedilol 6.25 MG TAB PO SCH (13:00)
[2019-06-24] MEDS ORDERED: DULoxetine 60 MG CAP PO SCH (13:00)
[2019-06-24] MEDS ORDERED: Furosemide 20 MG TAB PO SCH (13:00)
[2019-06-24] MEDS ORDERED: Pregabalin 50 MG CAP PO SCH (13:00)
[2019-06-24] MEDS ORDERED: Lidocaine 5% Patch TD SCH (14:15)
[2019-06-24] MEDS ORDERED: Estradiol 1 MG TAB PO SCH (14:15)
[2019-06-24] MEDS: Acetaminophen/Codeine 30-300mg Tablet PO PRN ×2 (15:02→22:31)
[2019-06-24] MEDS: Lidocaine 5% Patch TD SCH (15:03)
[2019-06-24] MEDS: Carvedilol 6.25 MG TAB PO SCH (15:05)
[2019-06-24 15:46] LABS: Base Excess (BEa) -1.6 mEq/L (-2.0 to +3.0); CO2 Tension 33.8 mmHg (35.0-45.0); Calcium, Ionized 1.14 mmol/L (1.12-1.30); Carboxyhemoglobin (COHb) 0.8 gm% (0.0-3.0); Hemoglobin (Hb) 13.9 g/dL (12.0-16.0); O2 Tension (PaO2) 77.6 mmHg (80.0-100.0); Potassium - ABG Lab 4.02 mmol/L (3.70-5.30); pH, Arterial 7.43 (7.35-7.45)
[2019-06-24 15:47] LABS: Puncture Site LRA
[2019-06-24] MEDS ORDERED: Diazepam 5 MG TAB PO SCH ×2 (16:15→21:00)
[2019-06-24] MEDS: ALPRAZolam 0.5 MG TAB PO PRN (17:17)
[2019-06-24] MEDS: methylPREDNISolone Sod Succ 40 MG VIAL IVP SCH (17:18)
[2019-06-24] MEDS ORDERED: Melatonin 3 MG TAB PO SCH (21:00)
[2019-06-24] MEDS ORDERED: traZODone HCl 50 MG TAB PO SCH (21:00)
[2019-06-24] MEDS: Pregabalin 50 MG CAP PO SCH (22:11)
[2019-06-25] MEDS: methylPREDNISolone Sod Succ 40 MG VIAL IVP SCH ×3 (01:00→11:27)
[2019-06-25] MEDS: ALPRAZolam 0.5 MG TAB PO PRN ×2 (01:00→11:32)
[2019-06-25] MEDS: Bacteriostatic Water 30 ML VIAL SLOW IVP PRN ×2 (01:00→06:11)
[2019-06-25] MEDS ORDERED: Lidocaine Patch Removal 1 EACH TOP SCH ×2 (02:30→21:00)
--- NOTE | 2019-06-25 07:29 | HP ---
This is LEONELA Nolan dictating a report for Kurt Gamino MD. CHIEF COMPLAINT: Shortness of breath and low back pain. HISTORY OF PRESENT ILLNESS: Ms. Rodriguez is a 48-year-old woman who frequently at times with acute hypoxic respiratory failure with known history of COPD. She was last here on June 15, 2019, discharge June 16, 2019. During her hospitalization, she was evaluated by Dr. Turner of pulmonary care. The patient is ongoing smoker and known to have underlying anxiety that often further exacerbates her symptoms. She was advised by Dr. Turner to lose weight as it would help with her dyspnea on exertion. She follows with Dr. Grey as an outpatient. She had been counseled by Dr. Grey in the past on using nebulizer treatments at home and monitor her O2 sats before panicking and going into the hospital. The patient states that she had an another episode of dyspnea which occurred while she was sleeping. She states she woke up suddenly gasping for air and took nebulizer treatment. Her sats improved to 90% on room air. However, due to wheezing, she opted to come to the hospital. The patient states she has been seen recently with regard to her chronic low back pain. She had an MRI of the thoracic and lumbar spine on 06/02/2019. She was noted to have [id number] degenerative disk disease, most prominent at L2 to L3 resulting in moderate spinal canal stenosis as well as moderate left neural foraminal narrowing at L4-L5. She was noted to have mild disk bulging at L3-L4 with mild spinal canal stenosis. The patient states she has been scheduled to follow up with Neurosurgery as an outpatient, but does not have an appointment until the first week of July. In the meantime, she continues to follow with Pain Management and recently had her Lyrica increased. She continues taking Tylenol No. 3 at home for pain. Once again, presents requesting to receive some sort of IV pain medication. When advised this would not be in her best interest given the fact that she has previously had symptoms of respiratory distress and altered mentation, she is agreeable to receive Tylenol No. 3. At this present time, the patient continues with expiratory wheezing, which is essentially there at baseline. She did have laboratory studies done in the emergency department including an arterial blood gas which showed a PO2 of 56.3. Her sats did improve to 97% on 2 L nasal cannula. Therefore, she was deemed appropriate for transfer to the floor. Her electrolytes were within normal range. Renal function was normal and LFTs were unremarkable. She did have a troponin done which was negative. Her white count is normal. She had a chest x-ray done while in the emergency department that showed no evidence of acute cardiopulmonary disease. The patient denies any associated chest pain. No nausea or vomiting. No abdominal pain or cramping. Reports persistent low back pain radiating down her legs, but no extremity numbness or weakness. All other review of systems negative. PAST MEDICAL HISTORY: 1. COPD. 2. Hypertension. 3. Coronary artery disease. 4. Diabetes mellitus type 2. 5. Chronic low back pain. 6. Anxiety. PAST SURGICAL HISTORY: 1. Appendectomy. 2. Hysterectomy. 3. Cardiac catheterization. 4. Ulnar nerve transposition to both arms. 5. Tonsillectomy. 6. Bladder surgery. 7. Cyst removal. SOCIAL HISTORY: The patient denies tobacco use, alcohol use, or illicit drug use. ALLERGIES: 1. DOXYCYCLINE. 2. GEODON. 3. HALDOL. 4. KETAMINE. 5. LEVAQUIN. 6. LORATADINE. 7. MORPHINE. 8. PENICILLIN. 9. TORADOL. 10. ZIPRASIDONE. CURRENT MEDICATIONS: 1. Tylenol No. 3. 2. Xanax. 3. Valium. 4. Cymbalta. 5. Estradiol. 6. Tylenol Sinus Severe Cold. 7. Nitrostat. 8. Pramipexole dihydrochloride. 9. Lyrica. 10. Trazodone. 11. Chantix. 12. Ventolin nebulizer. 13. Coreg. 14. Lasix. 15. Nicotine patch. PHYSICAL EXAMINATION: GENERAL: The patient appears well developed, well nourished, in no acute distress. VITAL SIGNS: Temperature 98, pulse 85, respirations 16, O2 saturation 97% on 2 L by nasal cannula, and blood pressure 137/80. HEENT: Normocephalic and atraumatic. Pupils are equal, round, reactive to light. Sclerae without icterus. Oropharynx is clear. NECK: Supple. LUNGS: Notable for inspiratory and expiratory wheezing throughout. The patient's breathing fluctuates from not being tachypneic when speaking with tachypneic at times during her assessment and examination. She is able to speak in full sentences. ABDOMEN: Soft, nontender, nondistended. CARDIAC: Regular rhythm. EXTREMITIES: No lower leg swelling or edema. NEUROLOGIC: Alert and oriented x3. SKIN: Without rash or jaundice. IMPRESSION AND PLAN: Ms. Rodriguez is a 48-year-old woman, who presents with acute respiratory distress in the emergency department, but states that this started last night while she was sleeping. She responded well to nebulizer, but given the fact that her saturation remained 90% on 2 L after nebulization, she opted to come into the hospital. She had an ABG done that showed a PO2 of 56.3. Chest x-ray was unremarkable. ABG notable for pH of 7.41, bicarb was 24.3, pCO2 of 39.6, O2 saturation of 89%. The patient with nebulizers in the emergency department had improvement. She was given magnesium sulfate 3 g IV, Solu-Medrol 125 mg IV. She has been referred for further observation and management. Chest x-ray is unremarkable. We will continue with DuoNeb and steroids. No sign of any infectious process, therefore, we will hold off on any antibiotics. The patient known to have frequent episodes in the past and usually her primary focus when in the hospital is receiving fentanyl and Dilaudid for her chronic low back pain. She is followed by pain management as an outpatient and recently her Lyrica was increased. No other adjustments to her pain medications were done and she is awaiting neurosurgery review scheduled for early July 2019. There is no evidence of any neuro deficits on exam. Therefore, the patient advised that she would require further management low back pain as an outpatient. We will resume her home medications. She is known to have a history of hypertension and has not received her morning medications. Therefore, we will give these and continue to monitor her blood pressure. The patient's case was discussed with Dr. Gamino for further recommendations. Job ID: [id number]
[2019-06-25] MEDS: Carvedilol 6.25 MG TAB PO SCH (08:16)
[2019-06-25] MEDS: Acetaminophen/Codeine 30-300mg Tablet PO PRN (08:17)
[2019-06-25] MEDS: Pregabalin 50 MG CAP PO SCH (08:17)
[2019-06-25] MEDS ORDERED: Lidocaine 5% Patch TD SCH (09:00)
[2019-06-25] MEDS ORDERED: Nicotine 21 MG PATCH TOP SCH (09:00)
[2019-06-25] MEDS ORDERED: Furosemide 20 MG TAB PO SCH (09:00)
[2019-06-25] MEDS ORDERED: DULoxetine 60 MG CAP PO SCH (09:00)
[2019-06-25] MEDS ORDERED: Montelukast Sodium 10 mg Tablet PO SCH (09:00)
[2019-06-25] MEDS ORDERED: Estradiol 1 MG TAB PO SCH (09:00)
[2019-06-25 12:06] LABS: Hemoglobin 12.6 g/dL (12.0-16.0); Mean Corpuscular HGB CONC 32.7 g/dL (32.0-36.0); Mean Corpuscular Hemoglobin 28.1 pg (27.0-31.0); Mean Corpuscular Volume 86.1 fL (78.0-98.0); Mean Platelet Volume 7.9 fL (7.4-10.4); Platelet Count 244 thou/uL (130-400); RBC Distribution Width 16.1 % (11.5-14.5); Red Blood Cell (RBC) Count 4.48 mill/uL (4.20-5.40); White Blood Cell (WBC) Count 20.2 thou/uL (4.8-10.8)
[2019-06-25 12:23] LABS: Anion Gap 10 mmol/L (10-20); BUN (Urea Nitrogen) 13 mg/dL (7.0-18.7); Calc. Creatinine Clearance 0 mL/min (70-130); Calcium 9.6 mg/dL (7.8-10.44); Carbon Dioxide 25 mmol/L (22-29); Chloride 109 mmol/L (98-107); Estimated GFR-MDRD Greater than 90; Glucose 111 mg/dL (70-105); Potassium 3.7 mmol/L (3.5-5.1); Sodium 140 mmol/L (136-145)
[2019-06-25 12:37] LABS: Band 12 % (5-11); Lymphocytes 6 % (21-51); MDiff Complete? YES; Neutrophil 81 % (42-75); RBC Morphology Normal; Reactive Lymphocytes 1 % (0-10)
[2019-06-25 13:50] LABS: Lactic Acid 1.7 mmol/L (0.5-2.2)
[2019-06-25] MEDS: Lidocaine 5% Patch TD SCH (15:34)
[2019-06-25 16:06] VITALS: BP 135/67; TEMP 98.8
--- NOTE | 2019-06-26 11:11 | DIS ---
DATE OF ADMISSION: 06/24/2019 DATE OF DISCHARGE: 06/25/2019 CONSULTING PHYSICIANS: None. DISCHARGE DIAGNOSES: 1. Acute hypoxic respiratory failure. 2. Chronic obstructive pulmonary disease exacerbation. HOSPITAL COURSE: Ms. Rodriguez is a 48-year-old woman, who presented complaining of shortness of breath that occurred during the night and did not respond to nebulizers at home. She states she was instructed by Dr. Grey, her dependency counselor, to take nebulizers and monitor her O2 saturations. She states it improved to 90%, but she continued to feel badly, prompting her to come in. The patient also has long-standing back pain and recently underwent an MRI of her spine. On the MRI, she was noted to have no significant central or neural foraminal stenosis within the thoracic spine. On the lumbar spine MRI, there was [id number] degenerative disk disease most prominent at L2-L3 resulting in moderate spinal canal stenosis as well as moderate left neural foraminal narrowing at L4-L5. Sensation and strength intact, but the patient does follow with Pain Management as an outpatient for continued management of her pain. She was noted to have normal saturations during her stay. The patient was adamant on receiving more pain medicines as well as muscle relaxants and Dilaudid or fentanyl for her chronic low back pain. We explained that since she has had issues with respiratory distress and vocal cord spasms that cause her to clutch her neck. We did not feel comfortable overloading her with more pain medications as she is on a combination of different medicines, being managed by Pain Management. The patient therefore asked to be discharged to home. She had laboratory studies done that initially demonstrated a normal full blood count. She did have an elevated white count on the day of discharge, attributed to the steroids given. Her electrolytes were unremarkable. She had a procalcitonin that was negative and a lactic acid that was normal. Given the fact that, she remained afebrile. Therefore, no antibiotics were recommended. The patient is on steroids at home and advised to resume her regular steroids. She was cleared for discharge home. The patient was seen by Dr. Gamino, who agreed with plans for discharge home. The patient was seen and examined on day of discharge. CONDITION: Stable. ACTIVITY: As tolerated. DIET: Heart healthy. DISCHARGE MEDICATIONS: 1. The patient advised to resume regular home medications. She states she does have steroids at home from previous admissions with exacerbation of COPD. 2. Otherwise, advised to resume all other home medications. FOLLOWUP: 1. The patient advised to follow up with her primary care physician within 1 week. 2. The patient advised to follow up with Dr. Grey as scheduled. 3. The patient advised to follow up with Neurosurgery as an outpatient as scheduled for July 21, 2019. Job ID: [id number]
[2019-06-26] MEDS ORDERED: Iopamidol 370 76% 50 ML VIAL FS ONE (16:22)
== END 2019-06-25 18:16 | disposition home or self-care (01) ==
LOC: ERS 06:36 → 2SW 08:51
PROVIDERS: ADMIT Internal Medicine; ATTEND Internal Medicine
DX: J96.01 Acute respiratory failure with hypoxia (principal); J44.1 Chronic obstructive pulmonary disease with (acute) exacerbation; I10 Essential (primary) hypertension; I25.10 Atherosclerotic heart disease of native coronary artery without angina pectoris; E11.9 Type 2 diabetes mellitus without complications; M54.5 Low back pain; G89.29 Other chronic pain; F41.9 Anxiety disorder, unspecified; F17.210 Nicotine dependence, cigarettes, uncomplicated; Z88.1 Allergy status to other antibiotic agents; Z88.8 Allergy status to other drugs, medicaments and biological substances; Z88.5 Allergy status to narcotic agent; Z88.4 Allergy status to anesthetic agent; Z88.0 Allergy status to penicillin; Z79.899 Other long term (current) drug therapy
CPT/HCPCS: 36415; 71045; 80048; 80053; 82805; 83605; 84145; 84484; 85025; 87040; 93005; 94640; 94760; 96365; 96375; 96376; G0378; J2920; J2930; J3475; J7611; J7620

== ENCOUNTER 2019-07-17 03:18 | Inpatient (IN) | payer BC ==
[2019-07-17] MEDS ORDERED: Albuterol Sulfate 2.5 mg/0.5 ml Neb ONE ×2 (03:57→04:05)
[2019-07-17] MEDS ORDERED: Albuterol Sulfate 2.5 mg/3 ml Neb ONE ×2 (04:04→04:05)
[2019-07-17] MEDS ORDERED: methylPREDNISolone Sod Succ/PF 125 MG/2 ML VIAL ONE (04:16)
[2019-07-17] MEDS ORDERED: Magnesium 2 GM/50 ML BAG (IN WATER) ONE (04:16)
[2019-07-17] MEDS ORDERED: Lorazepam 2 MG/ML VIAL ONE (04:16)
[2019-07-17 04:26] LABS: #Basophils 0.1 thou/uL (0.0-0.2); #Eosinphils 0.9 thou/uL (0.0-0.7); #Lymphocytes 2.8 thou/uL (1.20-3.40); #Monocytes 1.4 thou/uL (0.11-0.59); #Neutrophils 10.3 thou/uL (1.40-6.50); %Basophils 0.5 % (0.0-1.0); %Eosinophils 5.6 % (0.0-10.0); %Lymphocytes 18.1 % (21.0-51.0); %Monocytes 9.3 % (0.0-10.0); %Neutrophils 66.6 % (42.0-75.0); Hemoglobin 12.8 g/dL (12.0-16.0); Mean Corpuscular HGB CONC 33.5 g/dL (32.0-36.0); Mean Corpuscular Hemoglobin 28.9 pg (27.0-31.0); Mean Corpuscular Volume 86.1 fL (78.0-98.0); Platelet Count 256 thou/uL (130-400); RBC Distribution Width 15.6 % (11.5-14.5); Red Blood Cell (RBC) Count 4.44 mill/uL (4.20-5.40); White Blood Cell (WBC) Count 15.5 thou/uL (4.8-10.8)
[2019-07-17 04:42] LABS: ALT (SGPT) 16 U/L (8-55); AST (SGOT) 11 U/L (5-34); Albumin 3.7 g/dL (3.5-5.0); Alkaline Phosphatase 65 U/L (40-150); Anion Gap 14 mmol/L (10-20); BUN (Urea Nitrogen) 13 mg/dL (7.0-18.7); Bilirubin, Total 0.4 mg/dL (0.2-1.2); Calc. Creatinine Clearance 0 mL/min (70-130); Calcium 8.9 mg/dL (7.8-10.44); Carbon Dioxide 23 mmol/L (22-29); Chloride 107 mmol/L (98-107); Estimated GFR-MDRD 83; Globulin 2.5 g/dL (2.4-3.5); Glucose 102 mg/dL (70-105); Potassium 3.9 mmol/L (3.5-5.1); Protein, Total 6.2 g/dL (6.0-8.3); Sodium 140 mmol/L (136-145)
[2019-07-17] MEDS ORDERED: HYDROcodone/Acetaminophen 10/325 mg Tablet ONE (05:03)
[2019-07-17] MEDS ORDERED: Ondansetron PF 4 MG/2 ML Vial ONE (05:15)
[2019-07-17 05:32] LABS: Bilirubin Negative (Negative); Blood, Urine Negative (Negative); Clarity Clear (Clear); Glucose, Urine (Dipstick) Normal (Negative); Leukocyte Negative Leu/uL (Negative); Nitrite Negative (Negative); Protein, Urine (Dipstick) Negative (Neg-Trace); Urobilinogen Normal mg/dL (Less than 2)
[2019-07-17] MEDS ORDERED: Promethazine HCl 25 MG/ML VIAL ONE (06:17)
[2019-07-17] MEDS ORDERED: Acetaminophen 650 MG Suppository PR PRN (07:58)
[2019-07-17] MEDS ORDERED: Guaifenesin DM 100-10/5 ML UDCUP PO PRN (07:58)
[2019-07-17] MEDS ORDERED: Acetaminophen 325 MG TAB PO PRN (07:58)
--- NOTE | 2019-07-17 08:02 | RAD ---
Portable upright frontal chest radiograph: 07/17/2019 COMPARISON: 07/10/2019 HISTORY: Shortness of breath FINDINGS: Heart and mediastinal contours are unremarkable. The lungs appear clear. IMPRESSION: No acute findings.
[2019-07-17] MEDS ORDERED: Sodium Chloride 0.45% 1,000 ML IV SCH (08:30)
--- NOTE | 2019-07-17 08:37 | PDOC.HHP ---
Hospitalist HPI - History of Present Illness CP and SOB History of Present Illness: Ms. Rodriguez is a patient with known history of COPD with multiple visits due to COPD exacerbation. She presents complaining of another episode of SOB and chest pressure that woke her at 03:00 am this morning and states the pressure was a 7/10 in the center of her chest and lasted a few seconds. It recurrent at 6:00 am while in the ED and lasted a few seconds. No further pain since and states it was nonradiating. She states her O2 at home was 90% therefore she opted to come to the ED. Her main concern is her breathing. She follows with Dr. Grey who she saw 1 week ago. 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 Patient often requesting intubation in order to receive ativan and morphine or fentanyl for her chronic back pain (awaiting discussion for surgery, outpatient consultation on 07/21). The spasms cause episodes where she feels she cant catch her breath (witnessed by me several times in the past), patient will have normal sats and a normal HR but gripping at her throat and taking shallow breaths. She quickly recovers and goes back to speaking as normal. I have witnessed RN asking if Narcan was needed during one of these episodes in which the patient slumped back and was unresponsive, she had been receiving Trazadone, Ativan, [place], and Diazepam, when this was mentioned at bedside patient quickly sat up refusing Narcan. She states after seeing Dr. Grey recently she underwent a sleep study to assess her O2 sat at night, as she has these episodes that wake her from her sleep. She was told her sats dropped to 80% for a brief moment and therefore she did not quality for home O2 at night. More recently she developed a spider bite over her right lower abdomen, states she underwent I&D and had the wound packed yesterday. She was started on Bactrim but requesting IV abx. Patient states she does not want the dressing removed without first receiving IV pain medications or IV ativan. ED Course: Patient given Duonebs, Mag sulfate and Methylprednisolone 125 mg IV. She has also received 1 L NS IV, and phenergan as well as Zofran for nausea. For her pain she was given [place] 10 mg at 05:00, and ativan at 04:28. In the ED her sats have been 92-94% on RA, low grade temp of 99.5, and normal HR. Hospitalist ROS - Review of Systems Constitutional: reports: weakness (patient with limited mobility due to chronic back pain and sciatica). denies: fever, chills, sweats, malaise, other Eyes: denies: pain, vision change, conjunctivae inflammation, eyelid inflammation, redness, other ENT: denies: ear pain, ear discharge, nose pain, nose discharge, nose congestion , mouth pain, mouth swelling, throat pain, throat swelling, other Respiratory: reports: cough (chronic), shortness of breath, SOB with excertion, wheezing Cardiovascular: reports: chest pain (2 episodes lasting seconds, described as pressure, nonradiating 7/10 in severity) Gastrointestinal: reports: constipation (chronic and managed with stool softeners). denies: nausea, vomitting, abdominal pain, diarrhea, melena, hematochezia, other Genitourinary: denies: dysuria, frequency, incontinence, hematuria, retention, other Musculoskeletal: reports: neck pain, back pain, leg pain (chronic) Skin: reports: other (wound to right lower abdomen, unable to visualize, patient refusing, dressing in place with marked border extending across to her mid abdomen, no erythema but patient states it was erythematous and has improved.) Neurological: reports: numbness (lower extremity neuropathy at baseline). denies: weakness, incoordination, change in speech, confusion, seizures, other Hospitalist History - Past Medical History Source: patient Cardiac: reports: CAD, [place] Pulmonary: reports: COPD, previously intubated [employer]: reports: Peripheral neuropathy Gastrointestinal: reports: Constipation Heme/Onc: reports: no pertinent history Hepatobiliary: reports: no pertinent history Psych: reports: Anxiety Musculoskeletal: reports: Chronic low back pain Rheumatologic: reports: no pertinent history Infectious Disease: reports: no pertinent history ENT: reports: Other (laryngeal spasms) - Past Surgical History Past Surgical History: reports: Tonsillectomy, Other (Heart cath, ulnar nerve transposition both arms, surgery to C5-C7, bladder suspension, removal of cysts) - Family History Family History: reports: Other (Sister had DVT) - Social History Smoking Status: Former smoker Alcohol: reports: None Drugs: reports: none Living Situation: With Family - Exam General Appearance: NAD, awake alert Eye: PERRL, anicteric sclera ENT: normocephalic atraumatic, no oropharyngeal lesions, moist mucosa Neck: supple, symmetric, no lymphadenopathy Heart: RRR, no murmur, no gallops, no rubs, normal peripheral pulses Respiratory: no rales, normal chest expansion, no tachypnea, wheezes Gastrointestinal: soft, non-tender, non-distended, normal bowel sounds, no palpable masses (Dressing in place to right lower abdomen, no surrounding erythema or warmth) Extremeties - other findings: mild swelling in bilateral LE Skin: normal turgor Neurological: CN's grossly intact Musculoskeletal: no muscle wasting, generalized weakness Psychiatric: A&O x 3 Hospitalist Results - Labs Result Diagrams: 07/17/19 04:05 07/17/19 04:05 Lab results: WBC 15.5 thou/uL (4.8-10.8) H 07/17/19 04:05 Hgb 12.8 g/dL (12.0-16.0) 07/17/19 04:05 Hct 38.2 % (36.0-47.0) 07/17/19 04:05 MCV 86.1 fL (78.0-98.0) 07/17/19 04:05 Plt Count 256 thou/uL (130-400) 07/17/19 04:05 Neutrophils % 66.6 % (42.0-75.0) 07/17/19 04:05 Sodium 140 mmol/L (136-145) 07/17/19 04:05 Potassium 3.9 mmol/L (3.5-5.1) 07/17/19 04:05 Chloride 107 mmol/L (98-107) 07/17/19 04:05 Carbon Dioxide 23 mmol/L (22-29) 07/17/19 04:05 BUN 13 mg/dL (7.0-18.7) 07/17/19 04:05 Creatinine 0.74 mg/dL (0.6-1.1) 07/17/19 04:05 Glucose 102 mg/dL (70-105) 07/17/19 04:05 Calcium 8.9 mg/dL (7.8-10.44) 07/17/19 04:05 Total Bilirubin 0.4 mg/dL (0.2-1.2) 07/17/19 04:05 AST 11 U/L (5-34) 07/17/19 04:05 ALT 16 U/L (8-55) 07/17/19 04:05 Alkaline Phosphatase 65 U/L (40-150) 07/17/19 04:05 Troponin I Less than 0.010 ng/mL (< 0.028) 07/17/19 04:05 B-Natriuretic Peptide 64.0 pg/mL (0-100) 07/17/19 04:05 Serum Total Protein 6.2 g/dL (6.0-8.3) 07/17/19 04:05 Albumin 3.7 g/dL (3.5-5.0) 07/17/19 04:05 Urine Ketones Negative mg/dL (Negative) 07/17/19 05:06 Urine Blood Negative (Negative) 07/17/19 05:06 Urine Nitrite Negative (Negative) 07/17/19 05:06 Ur Leukocyte Esterase Negative [place]/uL (Negative) 07/17/19 05:06 - Radiology Interpretation Chest x-ray Status: report reviewed by me (CXR, no acute intrathoracic findings.) Hospitalist H&P A/P - Problem (1) Chest pain Code(s): R07.9 - CHEST PAIN, UNSPECIFIED Status: Acute Assessment and Plan: Will trend troponins. Most likely associated with COPD exacerbation, states she has had similar pain with episodes of SOB in the past. EKG in ED showed NSR, HR 76 with PACs. (2) Abscess Code(s): L02.91 - CUTANEOUS ABSCESS, UNSPECIFIED Status: Acute Assessment and Plan: S/p I&D, refusing examination without IV pain meds or ativan. Advised patient we will need to consult wound care and take a photo. She is asking to hold off for now. Requesting IV Abx, she has a low grade temp. Leukocytosis likely due to steroids, but will check Lactate and procalcitonin. Continue to monitor temp. Continue PO abx for now. (3) Shortness of breath Code(s): R06.02 - SHORTNESS OF BREATH Status: Acute Assessment and Plan: Secondary to COPD exacerbation. Known to have frequent exacerbations. Appears to be back to baseline. Apparently ED put as inpatient to obtain Pulmonary consult. None ordered. Will discuss with Dr. Grey if agrees with plan to consult pulmonology, given she is at her baseline and recently saw him last week, unclear this is necessary. Patient also asked why she needs one. Continue duonebs and steroids. Monitor O2 sat. (4) Anxiety and depression Code(s): F41.9 - ANXIETY DISORDER, UNSPECIFIED; F32.9 - MAJOR DEPRESSIVE DISORDER, SINGLE EPISODE, UNSPECIFIED Status: Chronic (5) Restless leg syndrome Status: Chronic Assessment and Plan: Resume home meds. (6) Back pain Code(s): M54.9 - DORSALGIA, UNSPECIFIED Status: Acute Qualifiers: Back pain location: low back pain Chronicity: chronic Back pain laterality: midline Sciatica presence: with sciatica Sciatica laterality: sciatica of right side Qualified Code(s): M54.41 - Lumbago with sciatica, right side; G89.29 - Other chronic pain Assessment and Plan: Continue [place] only. Awaiting consultation with Neurosurgery on 07/21.
[2019-07-17] MEDS: DULoxetine 60 MG CAP PO SCH (08:47)
[2019-07-17] MEDS: Estradiol 1 MG TAB PO SCH (08:58)
[2019-07-17] MEDS ORDERED: Non-Formulary Item 1 EACH (Estradiol [Estradiol] 2 MG) PO SCH (09:00)
[2019-07-17] MEDS: HYDROcodone/Acetaminophen 5/325 mg Tablet PO PRN ×3 (09:02→21:15)
[2019-07-17 09:54] LABS: Lactic Acid 5.8 mmol/L (0.5-2.2)
[2019-07-17] MEDS: Sodium Chloride 0.9% 1,000 ML IV SCH (10:41)
[2019-07-17] MEDS: methylPREDNISolone Sod Succ 40 MG VIAL IVP SCH ×2 (12:55→17:12)
[2019-07-17 13:00] LABS: Lactic Acid 3.5 mmol/L (0.5-2.2)
[2019-07-17] MEDS: ALPRAZolam 0.5 MG TAB PO PRN ×2 (15:07→17:11)
[2019-07-17] MEDS: Carvedilol 6.25 MG TAB PO SCH (17:12)
[2019-07-17] MEDS ORDERED: Sulfameth/Trimethoprim DS 800-160mg TAB PO SCH (21:00)
[2019-07-17] MEDS ORDERED: PRAMIPEXOLE DI HCL PO SCH (21:00)
[2019-07-17] MEDS: Pramipexole Di-HCl 1 MG TAB PO SCH (21:15)
[2019-07-17] MEDS: traZODone HCl 50 MG TAB PO SCH (21:15)
[2019-07-17] MEDS: Melatonin 3 MG TAB PO SCH (21:15)
[2019-07-17] MEDS: Sulfameth/Trimethoprim DS 800-160mg TAB PO SCH (21:16)
[2019-07-17] MEDS: Senokot S 8.6-50 MG TAB PO PRN (21:19)
[2019-07-18] MEDS: methylPREDNISolone Sod Succ 40 MG VIAL IVP SCH ×5 (00:15→22:53)
[2019-07-18] MEDS: Sodium Chloride 0.9% 1,000 ML IV SCH (00:15)
[2019-07-18 05:30] LABS: #Lymphocytes 1.1 thou/uL (1.20-3.40); #Monocytes 0.6 thou/uL (0.11-0.59); #Neutrophils 10.3 thou/uL (1.40-6.50); %Basophils 0.1 % (0.0-1.0); %Eosinophils 0.2 % (0.0-10.0); %Lymphocytes 9.1 % (21.0-51.0); %Monocytes 5.3 % (0.0-10.0); %Neutrophils 85.4 % (42.0-75.0); Hemoglobin 11.5 g/dL (12.0-16.0); Mean Corpuscular HGB CONC 31.8 g/dL (32.0-36.0); Mean Corpuscular Volume 88.2 fL (78.0-98.0); Mean Platelet Volume 8.4 fL (7.4-10.4); Platelet Count 236 thou/uL (130-400); RBC Distribution Width 15.6 % (11.5-14.5); Red Blood Cell (RBC) Count 4.09 mill/uL (4.20-5.40); White Blood Cell (WBC) Count 12.1 thou/uL (4.8-10.8)
[2019-07-18 05:49] LABS: Anion Gap 14 mmol/L (10-20); BUN (Urea Nitrogen) 14 mg/dL (7.0-18.7); Calc. Creatinine Clearance 134 mL/min (70-130); Calcium 9.2 mg/dL (7.8-10.44); Carbon Dioxide 21 mmol/L (22-29); Chloride 109 mmol/L (98-107); Estimated GFR-MDRD Greater than 90; Glucose 134 mg/dL (70-105); Potassium 4.2 mmol/L (3.5-5.1); Sodium 140 mmol/L (136-145)
[2019-07-18] MEDS: HYDROcodone/Acetaminophen 5/325 mg Tablet PO PRN ×3 (05:50→20:56)
[2019-07-18] MEDS: Estradiol 1 MG TAB PO SCH (09:08)
[2019-07-18] MEDS: DULoxetine 60 MG CAP PO SCH (09:08)
[2019-07-18] MEDS: Sulfameth/Trimethoprim DS 800-160mg TAB PO SCH ×2 (09:08→20:49)
[2019-07-18] MEDS: Carvedilol 6.25 MG TAB PO SCH ×2 (09:08→16:35)
[2019-07-18] MEDS ORDERED: HYDROmorphone 0.5 MG/0.5 ML SYRINGE SLOW IVP SCH (09:15)
[2019-07-18] MEDS ORDERED: Fentanyl 100 MCG/2 ML VIAL SLOW IVP PRN (09:47)
--- NOTE | 2019-07-18 10:33 | PDOC.HOSPP ---
- Subjective Encounter Date: 07/18/19 non-verbal Subjective: Patient has multiple complaints : - legs are swelling ( bilat, since 3 days ) - continues to wheeze and gets dizzy when she stands up, no improvement since yesterday - she has pain at her wound site, when wound is changed, she is requesting Dilaudid or Fentanyl when her wound is changed. she did mention her chest tightness, that was short lived yesterday and had not recurred today. - Objective Vital Signs & Weight: Vital Signs (12 hours) Temp Pulse Resp BP BP Pulse Ox 07/18/19 07:51 98.4 F 74 18 131/67 95 07/18/19 07:18 81 20 99 07/18/19 03:10 98 F 89 20 133/68 95 07/17/19 23:30 97.6 F 75 18 134/66 96 07/17/19 22:46 95 Weight Admit Weight 175 lb 14.862 oz Weight 175 lb 14.862 oz I&O: 07/17/19 07/18/19 07/19/19 06:59 06:59 06:59 Intake Total 2620 Output Total 1100 Balance 1520 Result Diagrams: 07/18/19 04:38 07/18/19 04:38 Hospitalist ROS - Medication Medications: Active Medications Generic Name Dose Route Start Last Admin Trade Name Freq PRN Reason Stop Dose Admin Hydrocodone Bitart/Acetaminophen 2 tab 07/17/19 08:07 07/18/19 05:50 [place] 5/325 PO 2 tab Q4H PRN Administration Pain Albuterol/Ipratropium 3 ml 07/17/19 10:00 07/18/19 07:18 Duoneb NEB 3 ml [id number] [place] Administration Alprazolam 0.5 mg 07/17/19 14:44 07/17/19 17:11 Xanax PO 0.5 mg TID PRN Administration Anxiety Carvedilol 6.25 mg 07/17/19 17:00 07/18/19 09:08 Coreg PO 6.25 mg BID-WM [place] Administration Duloxetine HCl 60 mg 07/17/19 09:00 07/18/19 09:08 Cymbalta PO 60 mg DAILY [place] Administration Estradiol 2 mg 07/17/19 09:00 07/18/19 09:08 Estrace PO 2 mg DAILY [place] Administration Melatonin 3 mg 07/17/19 21:00 07/17/19 21:15 Melatonin PO 3 mg HS [place] Administration Methylprednisolone Sodium Succinate 40 mg 07/17/19 12:00 07/18/19 05:45 Solu-Medrol IVP 40 mg Q6HR [place] Administration Pramipexole Dihydrochloride 2 mg 07/17/19 21:00 07/17/19 21:15 Mirapex PO 2 mg HS [place] Administration Senna/Docusate Sodium 2 tab 07/17/19 07:58 07/17/19 21:19 Senokot S PO 2 tab BID PRN Administration Constipation Trazodone HCl 50 mg 07/17/19 21:00 07/17/19 21:15 Desyrel PO 50 mg HS [place] Administration Trimethoprim/Sulfamethoxazole 1 tab 07/17/19 21:00 07/18/19 09:08 Bactrim Ds PO 1 tab BID [place] Administration - Exam General Appearance: NAD, awake alert Eye: PERRL, anicteric sclera ENT: normocephalic atraumatic, no oropharyngeal lesions, moist mucosa Neck: supple, symmetric, no JVD, no thyromegaly, no lymphadenopathy, no carotid bruit Heart: RRR, no murmur, no gallops, no rubs, normal peripheral pulses Respiratory: normal chest expansion, wheezes Gastrointestinal: soft, non-tender, non-distended, normal bowel sounds, no palpable masses, no hepatomegaly, no splenomegaly, no bruit Extremities: 1+ LE edema Neurological: CN's grossly intact, normal sensation to touch, no weakness, no focal deficits, no new deficit Musculoskeletal: normal tone, normal strength, no muscle wasting Hosp A/P (1) Abscess Code(s): L02.91 - CUTANEOUS ABSCESS, UNSPECIFIED Status: Acute (2) Chest pain Code(s): R07.9 - CHEST PAIN, UNSPECIFIED Status: Resolved (3) Back pain Code(s): M54.9 - DORSALGIA, UNSPECIFIED Status: Chronic Qualifiers: Back pain location: low back pain Chronicity: chronic Back pain laterality: midline Sciatica presence: with sciatica Sciatica laterality: sciatica of right side Qualified Code(s): M54.41 - Lumbago with sciatica, right side; G89.29 - Other chronic pain (4) COPD exacerbation Code(s): J44.1 - CHRONIC OBSTRUCTIVE PULMONARY DISEASE W (ACUTE) EXACERBATION Status: Acute (5) Lactic acidosis Code(s): E87.2 - ACIDOSIS Status: Acute - Plan pulmonary---will continue steroids and nebs, restart CPAP skin---cont with Bactrim, seems that it is improving, wound care is on the case , lactic acid was elevated, she is scheduled for a repeat she did get some hydration, she is not looking toxic. chronic pain--on norco, Fentanyl with dressing change as per patient request leg swelling---will stop fluids, will do a venous doppler, might give lasix in am if no resolution. smoking cessation encouraged, will give Nicotine patch. chest pressure yesterday, but trops are negative, no CP today, will transfer to medical floor.
[2019-07-18] MEDS: ALPRAZolam 0.5 MG TAB PO PRN ×2 (12:19→17:29)
[2019-07-18] MEDS: Senokot S 8.6-50 MG TAB PO PRN (14:10)
[2019-07-18] MEDS: Fentanyl 100 MCG/2 ML VIAL SLOW IVP PRN (16:05)
[2019-07-18 16:17] VITALS: BMI 27.6
--- NOTE | 2019-07-18 19:30 | ULT ---
BILATERAL LOWER EXTREMITY VENOUS DOPPLER ULTRASOUND: 07/18/19 HISTORY: Lower extremity edema. Lower extremity pain. TECHNIQUE: Adhikari scale ultrasound with color flow and spectral Doppler imaging of the deep venous systems of the lower extremities is performed bilaterally. FINDINGS: There is good flow, compression, and augmentation noted in the common femoral, femoral, deep femoral, popliteal, posterior tibial and greater saphenous veins in both lower extremities. IMPRESSION: No evidence of DVT in either lower extremity. POS: GRACIELA
[2019-07-18] MEDS: traZODone HCl 50 MG TAB PO SCH (20:49)
[2019-07-18] MEDS: Melatonin 3 MG TAB PO SCH (20:50)
[2019-07-18] MEDS: Pramipexole Di-HCl 1 MG TAB PO SCH (20:50)
[2019-07-18] MEDS: Ondansetron ODT 4 MG TAB PO PRN (20:56)
[2019-07-18] MEDS: Mag-Al Plus 1200 MG/1200 MG/120 MG/30 ML UDCUP PO PRN (22:54)
[2019-07-19] MEDS: methylPREDNISolone Sod Succ 40 MG VIAL IVP SCH ×3 (06:26→17:48)
[2019-07-19] MEDS: ALPRAZolam 0.5 MG TAB PO PRN ×2 (06:29→17:48)
[2019-07-19] MEDS: DULoxetine 60 MG CAP PO SCH (07:54)
[2019-07-19] MEDS: Sulfameth/Trimethoprim DS 800-160mg TAB PO SCH ×2 (07:54→19:57)
[2019-07-19] MEDS: Carvedilol 6.25 MG TAB PO SCH ×2 (07:54→17:04)
[2019-07-19] MEDS: Nicotine 21 MG PATCH TD SCH (07:55)
--- NOTE | 2019-07-19 09:00 | PDOC.HOSPP ---
- Subjective Encounter Date: 07/19/19 Subjective: She continues to be sob, and not back to baseline, c/o being constipated. She wants to have fentanyl every time she has a wound change. I was informed by RN that she goes out and smokes. - Objective Vital Signs & Weight: Vital Signs (12 hours) Temp Pulse Resp BP BP Pulse Ox 07/19/19 08:00 98.5 F 67 18 119/65 91 L 07/19/19 07:54 126/76 07/19/19 07:33 62 12 07/18/19 22:33 77 16 96 Weight Admit Weight 175 lb 14.862 oz Weight 176 lb I&O: 07/18/19 07/19/19 07/20/19 06:59 06:59 06:59 Intake Total 2620 Output Total 1100 Balance 1520 Result Diagrams: 07/18/19 04:38 07/18/19 04:38 Hospitalist ROS - Medication Medications: Active Medications Generic Name Dose Route Start Last Admin Trade Name Freq PRN Reason Stop Dose Admin Hydrocodone Bitart/Acetaminophen 2 tab 07/17/19 08:07 07/18/19 20:56 [place] 5/325 PO 2 tab Q4H PRN Administration Pain Al Hydroxide/Mg Hydroxide 30 ml 07/18/19 22:38 07/18/19 22:54 Maalox Plus PO 30 ml Q6H PRN Administration Heartburn or Indigestion Albuterol/Ipratropium 3 ml 07/17/19 10:00 07/19/19 07:33 Duoneb NEB 3 ml [id number] [place] Administration Alprazolam 0.5 mg 07/17/19 14:44 07/19/19 06:29 Xanax PO 0.5 mg TID PRN Administration Anxiety Carvedilol 6.25 mg 07/17/19 17:00 07/19/19 07:54 Coreg PO 6.25 mg BID-WM [place] Administration Duloxetine HCl 60 mg 07/17/19 09:00 07/19/19 07:54 Cymbalta PO 60 mg DAILY [place] Administration Estradiol 2 mg 07/17/19 09:00 07/18/19 09:08 Estrace PO 2 mg DAILY [place] Administration Fentanyl 25 mcg 07/18/19 15:58 07/18/19 16:05 Sublimaze SLOW IVP 25 mcg ASDIR PRN Administration .WOUND CARE Melatonin 3 mg 07/17/19 21:00 07/18/19 20:50 Melatonin PO 3 mg HS [place] Administration Methylprednisolone Sodium Succinate 40 mg 07/17/19 12:00 07/19/19 06:26 Solu-Medrol IVP 40 mg Q6HR [place] Administration Nicotine 21 mg 07/19/19 09:00 07/19/19 07:55 Nicoderm Patch TD 21 mg DAILY [place] Administration Ondansetron HCl 4 mg 07/17/19 07:58 07/18/19 20:56 Zofran Odt PO 4 mg Q6H PRN Administration Nausea/Vomiting Pramipexole Dihydrochloride 2 mg 07/17/19 21:00 07/18/19 20:50 Mirapex PO 2 mg HS [place] Administration Senna/Docusate Sodium 2 tab 07/17/19 07:58 07/18/19 14:10 Senokot S PO 2 tab BID PRN Administration Constipation Sodium Chloride 10 ml 07/17/19 07:58 07/19/19 07:55 Flush - Normal Saline IVF 10 ml Q12HR PRN Administration Saline Flush Trazodone HCl 50 mg 07/17/19 21:00 07/18/19 20:49 Desyrel PO 50 mg HS [place] Administration Trimethoprim/Sulfamethoxazole 1 tab 07/17/19 21:00 07/19/19 07:54 Bactrim Ds PO 1 tab BID [place] Administration - Exam General Appearance: NAD, awake alert Eye: PERRL, anicteric sclera ENT: normocephalic atraumatic, no oropharyngeal lesions, moist mucosa Neck: supple, symmetric, no JVD, no thyromegaly, no lymphadenopathy, no carotid bruit Heart: RRR, no murmur, no gallops, no rubs, normal peripheral pulses Respiratory: rhonchi, wheezes Gastrointestinal: soft, non-tender, non-distended, normal bowel sounds, no palpable masses, no hepatomegaly, no splenomegaly, no bruit Extremities: no cyanosis, no clubbing, no edema Skin: normal turgor, no lesions, no rashes Neurological: CN's grossly intact, normal sensation to touch, no weakness, no focal deficits, no new deficit Hosp A/P (1) Abscess Code(s): L02.91 - CUTANEOUS ABSCESS, UNSPECIFIED Status: Acute (2) Chest pain Code(s): R07.9 - CHEST PAIN, UNSPECIFIED Status: Resolved (3) Back pain Code(s): M54.9 - DORSALGIA, UNSPECIFIED Status: Chronic Qualifiers: Back pain location: low back pain Chronicity: chronic Back pain laterality: midline Sciatica presence: with sciatica Sciatica laterality: sciatica of right side Qualified Code(s): M54.41 - Lumbago with sciatica, right side; G89.29 - Other chronic pain (4) COPD exacerbation Code(s): J44.1 - CHRONIC OBSTRUCTIVE PULMONARY DISEASE W (ACUTE) EXACERBATION Status: Acute (5) Lactic acidosis Code(s): E87.2 - ACIDOSIS Status: Resolved - Plan pulmonary---will continue steroids and nebs seems that she is not improving as quickly as she should as she continues to smoke. skin---cont with Bactrim, seems that it is improving, wound care is on the case , lactic acid was elevated but repeat is normal. chronic pain--on norco, Fentanyl with dressing change as per patient request leg swelling--- fluids were stopped , venous doppler negative, legs looks mush improved today. smoking cessation encouraged, will give Nicotine patch. chest pressure reported , no CP today. constipation---MOM
[2019-07-19 09:45] LABS: Lactic Acid 2.8 mmol/L (0.5-2.2)
[2019-07-19] MEDS: Fentanyl 100 MCG/2 ML VIAL SLOW IVP PRN (09:58)
[2019-07-19] MEDS: Milk Of Magnesia 30 ML UDCUP PO PRN (09:58)
[2019-07-19] MEDS: Estradiol 1 MG TAB PO SCH (10:30)
[2019-07-19] MEDS: HYDROcodone/Acetaminophen 5/325 mg Tablet PO PRN ×3 (10:37→19:58)
[2019-07-19] MEDS: Ondansetron PF 4 MG/2 ML Vial IVP PRN (12:44)
[2019-07-19] MEDS: Ondansetron ODT 4 MG TAB PO PRN (14:08)
[2019-07-19] MEDS ORDERED: Promethazine HCl 25 MG/ML VIAL IM/IV PRN (16:13)
[2019-07-19] MEDS: Promethazine HCl 25 MG in Sodium Chloride 0.9% 50 ML IVPB PRN (17:01)
[2019-07-19] MEDS: Melatonin 3 MG TAB PO SCH (19:57)
[2019-07-19] MEDS: Pramipexole Di-HCl 1 MG TAB PO SCH (19:58)
[2019-07-19] MEDS: traZODone HCl 50 MG TAB PO SCH (19:58)
[2019-07-20] MEDS: methylPREDNISolone Sod Succ 40 MG VIAL IVP SCH ×4 (00:53→18:02)
[2019-07-20] MEDS: ALPRAZolam 0.5 MG TAB PO PRN ×3 (00:53→14:11)
[2019-07-20] MEDS: Carvedilol 6.25 MG TAB PO SCH ×2 (09:24→17:20)
[2019-07-20] MEDS: DULoxetine 60 MG CAP PO SCH (09:24)
[2019-07-20] MEDS: Estradiol 1 MG TAB PO SCH (09:24)
[2019-07-20] MEDS: Sulfameth/Trimethoprim DS 800-160mg TAB PO SCH ×2 (09:25→21:09)
[2019-07-20] MEDS: Nicotine 21 MG PATCH TD SCH (09:25)
[2019-07-20] MEDS: HYDROcodone/Acetaminophen 5/325 mg Tablet PO PRN ×3 (09:33→18:03)
[2019-07-20] MEDS: Fentanyl 100 MCG/2 ML VIAL SLOW IVP PRN (10:43)
--- NOTE | 2019-07-20 11:43 | PDOC.HOSPP ---
- Subjective Encounter Date: 07/20/19 Subjective: seems better today, she has an appointment with her Orthopedic surgeon, she was asking me if she can go. - Objective Vital Signs & Weight: Vital Signs (12 hours) Temp Pulse Resp BP BP Pulse Ox 07/20/19 09:24 119/70 07/20/19 08:01 68 14 99 07/20/19 08:00 93 L 07/20/19 07:13 98.3 F 74 18 119/70 93 L Weight Admit Weight 175 lb 14.862 oz Weight 176 lb Result Diagrams: 07/18/19 04:38 07/18/19 04:38 Hospitalist ROS - Medication Medications: Active Medications Generic Name Dose Route Start Last Admin Trade Name Freq PRN Reason Stop Dose Admin Hydrocodone Bitart/Acetaminophen 2 tab 07/17/19 08:07 07/20/19 09:33 [place] 5/325 PO 2 tab Q4H PRN Administration Pain Al Hydroxide/Mg Hydroxide 30 ml 07/18/19 22:38 07/18/19 22:54 Maalox Plus PO 30 ml Q6H PRN Administration Heartburn or Indigestion Alprazolam 0.5 mg 07/17/19 14:44 07/20/19 06:26 Xanax PO 0.5 mg TID PRN Administration Anxiety Carvedilol 6.25 mg 07/17/19 17:00 07/20/19 09:24 Coreg PO 6.25 mg BID-WM [place] Administration Duloxetine HCl 60 mg 07/17/19 09:00 07/20/19 09:24 Cymbalta PO 60 mg DAILY [place] Administration Estradiol 2 mg 07/17/19 09:00 07/20/19 09:24 Estrace PO 2 mg DAILY [place] Administration Fentanyl 25 mcg 07/18/19 15:58 07/20/19 10:43 Sublimaze SLOW IVP 25 mcg ASDIR PRN Administration .WOUND CARE Promethazine HCl 25 mg/ Sodium 51 mls @ 204 mls/hr 07/19/19 16:33 07/19/19 17 :01 Chloride IVPB 51 mls Q6H PRN Administration Nausea/Vomiting Magnesium Hydroxide 30 ml 07/19/19 08:55 07/19/19 09:58 Milk Of Magnesium PO 30 ml DAILYPRN PRN Administration Constipation Melatonin 3 mg 07/17/19 21:00 07/19/19 19:57 Melatonin PO 3 mg HS [place] Administration Nicotine 21 mg 07/19/19 09:00 07/20/19 09:25 Nicoderm Patch TD 21 mg DAILY [place] Administration Ondansetron HCl 4 mg 07/17/19 07:58 07/19/19 14:08 Zofran Odt PO 4 mg Q6H PRN Administration Nausea/Vomiting Ondansetron HCl 4 mg 07/17/19 07:58 07/19/19 12:44 Zofran IVP 4 mg Q6H PRN Administration Nausea/Vomiting Pramipexole Dihydrochloride 2 mg 07/17/19 21:00 07/19/19 19:58 Mirapex PO 2 mg HS [place] Administration Senna/Docusate Sodium 2 tab 07/17/19 07:58 07/18/19 14:10 Senokot S PO 2 tab BID PRN Administration Constipation Sodium Chloride 10 ml 07/17/19 07:58 07/19/19 07:55 Flush - Normal Saline IVF 10 ml Q12HR PRN Administration Saline Flush Trazodone HCl 50 mg 07/17/19 21:00 07/19/19 19:58 Desyrel PO 50 mg HS [place] Administration Trimethoprim/Sulfamethoxazole 1 tab 07/17/19 21:00 07/20/19 09:25 Bactrim Ds PO 1 tab BID [place] Administration - Exam General Appearance: NAD, awake alert Eye: PERRL, anicteric sclera ENT: normocephalic atraumatic, no oropharyngeal lesions, moist mucosa Neck: supple, symmetric, no JVD, no thyromegaly, no lymphadenopathy, no carotid bruit Heart: RRR, no murmur, no gallops, no rubs, normal peripheral pulses Respiratory: wheezes Gastrointestinal: soft, non-tender, non-distended, normal bowel sounds, no palpable masses, no hepatomegaly, no splenomegaly, no bruit Extremities: no cyanosis, no clubbing, no edema Skin: normal turgor, no lesions, no rashes Hosp A/P (1) Abscess Code(s): L02.91 - CUTANEOUS ABSCESS, UNSPECIFIED Status: Acute (2) Chest pain Code(s): R07.9 - CHEST PAIN, UNSPECIFIED Status: Resolved (3) Back pain Code(s): M54.9 - DORSALGIA, UNSPECIFIED Status: Chronic Qualifiers: Back pain location: low back pain Chronicity: chronic Back pain laterality: midline Sciatica presence: with sciatica Sciatica laterality: sciatica of right side Qualified Code(s): M54.41 - Lumbago with sciatica, right side; G89.29 - Other chronic pain (4) COPD exacerbation Code(s): J44.1 - CHRONIC OBSTRUCTIVE PULMONARY DISEASE W (ACUTE) EXACERBATION Status: Acute (5) Lactic acidosis Code(s): E87.2 - ACIDOSIS Status: Resolved - Plan pulmonary---continues to wheeze---pox 89 to 90 percent even at rest---- will increase her steroids and nebs frequency seems that she is not improving as quickly as she should , she has a nicotine patch now. skin---cont with Bactrim, seems that it is improving, wound care is on the case , lactic acid was elevated but repeat is normal , another repeat is slightly high but clinically she appears stable. chronic pain--on norco, Fentanyl with dressing change as per patient request leg swelling--- fluids were stopped , venous doppler negative, legs looks much improved today. smoking cessation encouraged, will give Nicotine patch. chest pressure reported , no CP today. constipation---give MOM
[2019-07-20] MEDS: Promethazine HCl 25 MG in Sodium Chloride 0.9% 50 ML IVPB PRN (13:42)
[2019-07-20] MEDS: Senokot S 8.6-50 MG TAB PO PRN (14:10)
[2019-07-20] MEDS: Milk Of Magnesia 30 ML UDCUP PO PRN (17:23)
[2019-07-20] MEDS ORDERED: Fluticasone Propionate HFA 220 MCG AER INH SCH (18:30)
[2019-07-20] MEDS: Mometasone 200 MCG HFA INHALER INH SCH (19:30)
[2019-07-20] MEDS: traZODone HCl 50 MG TAB PO SCH (21:09)
[2019-07-20] MEDS: Pramipexole Di-HCl 1 MG TAB PO SCH (21:09)
[2019-07-20] MEDS: Melatonin 3 MG TAB PO SCH (21:09)
[2019-07-21] MEDS: methylPREDNISolone Sod Succ 40 MG VIAL IVP SCH ×4 (00:22→18:23)
[2019-07-21] MEDS: ALPRAZolam 0.5 MG TAB PO PRN ×3 (00:22→20:53)
[2019-07-21 05:57] LABS: #Lymphocytes 1.8 thou/uL (1.20-3.40); #Monocytes 0.6 thou/uL (0.11-0.59); #Neutrophils 13.2 thou/uL (1.40-6.50); %Basophils 0.1 % (0.0-1.0); %Eosinophils 0.3 % (0.0-10.0); %Lymphocytes 11.7 % (21.0-51.0); %Monocytes 3.7 % (0.0-10.0); %Neutrophils 84.3 % (42.0-75.0); Hemoglobin 12.9 g/dL (12.0-16.0); Mean Corpuscular HGB CONC 31.4 g/dL (32.0-36.0); Mean Corpuscular Hemoglobin 27.4 pg (27.0-31.0); Mean Corpuscular Volume 87.5 fL (78.0-98.0); Mean Platelet Volume 8.2 fL (7.4-10.4); Platelet Count 273 thou/uL (130-400); RBC Distribution Width 15.5 % (11.5-14.5); White Blood Cell (WBC) Count 15.6 thou/uL (4.8-10.8)
[2019-07-21 06:18] LABS: Anion Gap 14 mmol/L (10-20); BUN (Urea Nitrogen) 15 mg/dL (7.0-18.7); Calc. Creatinine Clearance 118 mL/min (70-130); Calcium 9.3 mg/dL (7.8-10.44); Carbon Dioxide 25 mmol/L (22-29); Chloride 101 mmol/L (98-107); Estimated GFR-MDRD 86; Glucose 115 mg/dL (70-105); Potassium 4.2 mmol/L (3.5-5.1); Sodium 136 mmol/L (136-145)
[2019-07-21] MEDS: HYDROcodone/Acetaminophen 5/325 mg Tablet PO PRN ×2 (06:25→18:24)
[2019-07-21] MEDS: Mometasone 200 MCG HFA INHALER INH SCH ×2 (07:10→20:49)
[2019-07-21] MEDS: Nicotine 21 MG PATCH TD SCH (08:32)
[2019-07-21] MEDS: DULoxetine 60 MG CAP PO SCH (08:32)
[2019-07-21] MEDS: Carvedilol 6.25 MG TAB PO SCH ×2 (08:32→18:24)
[2019-07-21] MEDS: Estradiol 1 MG TAB PO SCH (08:33)
[2019-07-21] MEDS: Sulfameth/Trimethoprim DS 800-160mg TAB PO SCH ×2 (08:40→20:53)
--- NOTE | 2019-07-21 13:25 | PDOC.HOSPP ---
- Subjective Encounter Date: 07/21/19 Subjective: After going down to buy noodles, she complained chest pain, pressure like in nature, currently subsiding. - Objective Vital Signs & Weight: Vital Signs (12 hours) Temp Pulse Resp BP BP BP Pulse Ox 07/21/19 11:00 74 16 94 L 07/21/19 10:47 98.2 F 74 18 133/76 92 L 07/21/19 08:32 114/75 07/21/19 08:00 94 L 07/21/19 07:20 97.6 F 69 16 114/75 96 07/21/19 07:09 76 16 96 07/21/19 02:03 69 12 Weight Admit Weight 175 lb 14.862 oz Weight 176 lb I&O: 07/20/19 07/21/19 07/22/19 06:59 06:59 06:59 Intake Total 1200 Balance 1200 Result Diagrams: 07/21/19 05:17 07/21/19 05:17 Hospitalist ROS - Medication Medications: Active Medications Generic Name Dose Route Start Last Admin Trade Name Freq PRN Reason Stop Dose Admin Hydrocodone Bitart/Acetaminophen 2 tab 07/17/19 08:07 07/21/19 06:25 [place] 5/325 PO 2 tab Q4H PRN Administration Pain Al Hydroxide/Mg Hydroxide 30 ml 07/18/19 22:38 07/18/19 22:54 Maalox Plus PO 30 ml Q6H PRN Administration Heartburn or Indigestion Albuterol/Ipratropium 3 ml 07/20/19 14:30 07/21/19 11:00 Duoneb NEB 3 ml [id number] [place] Administration Alprazolam 0.5 mg 07/17/19 14:44 07/21/19 12:19 Xanax PO 0.5 mg TID PRN Administration Anxiety Carvedilol 6.25 mg 07/17/19 17:00 07/21/19 08:32 Coreg PO 6.25 mg BID-WM [place] Administration Duloxetine HCl 60 mg 07/17/19 09:00 07/21/19 08:32 Cymbalta PO 60 mg DAILY [place] Administration Estradiol 2 mg 07/17/19 09:00 07/21/19 08:33 Estrace PO 2 mg DAILY [place] Administration Fentanyl 25 mcg 07/18/19 15:58 07/20/19 10:43 Sublimaze SLOW IVP 25 mcg ASDIR PRN Administration .WOUND CARE Promethazine HCl 25 mg/ Sodium 51 mls @ 204 mls/hr 07/19/19 16:33 07/20/19 13 :42 Chloride IVPB 51 mls Q6H PRN Administration Nausea/Vomiting Magnesium Hydroxide 30 ml 07/19/19 08:55 07/20/19 17:23 Milk Of Magnesium PO 30 ml DAILYPRN PRN Administration Constipation Melatonin 3 mg 07/17/19 21:00 07/20/19 21:09 Melatonin PO 3 mg HS [place] Administration Methylprednisolone Sodium Succinate 60 mg 07/20/19 12:00 07/21/19 12:19 Solu-Medrol IVP 60 mg Q6HR [place] Administration Mometasone Furoate 1 puff 07/20/19 18:30 07/21/19 07:10 Asmanex Hfa 200 Mcg INH 1 puff BID-RT [place] Administration Nicotine 21 mg 07/19/19 09:00 07/21/19 08:32 Nicoderm Patch TD 21 mg DAILY [place] Administration Ondansetron HCl 4 mg 07/17/19 07:58 07/19/19 14:08 Zofran Odt PO 4 mg Q6H PRN Administration Nausea/Vomiting Ondansetron HCl 4 mg 07/17/19 07:58 07/19/19 12:44 Zofran IVP 4 mg Q6H PRN Administration Nausea/Vomiting Pramipexole Dihydrochloride 2 mg 07/17/19 21:00 07/20/19 21:09 Mirapex PO 2 mg HS [place] Administration Senna/Docusate Sodium 2 tab 07/17/19 07:58 07/20/19 14:10 Senokot S PO 2 tab BID PRN Administration Constipation Sodium Chloride 10 ml 07/17/19 07:58 07/19/19 07:55 Flush - Normal Saline IVF 10 ml Q12HR PRN Administration Saline Flush Trazodone HCl 50 mg 07/17/19 21:00 07/20/19 21:09 Desyrel PO 50 mg HS [place] Administration Trimethoprim/Sulfamethoxazole 1 tab 07/17/19 21:00 07/21/19 08:40 Bactrim Ds PO 1 tab BID [place] Administration - Exam Eye: PERRL, anicteric sclera ENT: normocephalic atraumatic, no oropharyngeal lesions, moist mucosa Neck: supple, symmetric, no JVD, no thyromegaly, no lymphadenopathy, no carotid bruit Heart: RRR, no murmur, no gallops, no rubs, normal peripheral pulses Respiratory: rhonchi, wheezes Gastrointestinal: soft, non-tender, non-distended, normal bowel sounds, no palpable masses, no hepatomegaly, no splenomegaly, no bruit Extremities: no cyanosis, no clubbing, no edema Hosp A/P (1) Abscess Code(s): L02.91 - CUTANEOUS ABSCESS, UNSPECIFIED Status: Acute (2) Chest pain Code(s): R07.9 - CHEST PAIN, UNSPECIFIED Status: Resolved (3) Back pain Code(s): M54.9 - DORSALGIA, UNSPECIFIED Status: Chronic Qualifiers: Back pain location: low back pain Chronicity: chronic Back pain laterality: midline Sciatica presence: with sciatica Sciatica laterality: sciatica of right side Qualified Code(s): M54.41 - Lumbago with sciatica, right side; G89.29 - Other chronic pain (4) COPD exacerbation Code(s): J44.1 - CHRONIC OBSTRUCTIVE PULMONARY DISEASE W (ACUTE) EXACERBATION Status: Acute - Plan pulmonary---continues to wheeze---increased steroids and nebs frequency seems that she is not improving as quickly as she should , she has a nicotine patch now. I will consult pulmonary for help managing her. skin---cont with Bactrim, seems that it is improving, wound care is on the case , lactic acid was elevated but repeat is normal , another repeat is slightly high but clinically she appears stable. chronic pain--on norco, Fentanyl with dressing change as per patient request smoking cessation encouraged-- Nicotine patch. chest pressure reported ---her EKG looks normal---recent admission for type 2 cardiac event---will cycle trops constipation---give MOM
[2019-07-21] MEDS: Fentanyl 100 MCG/2 ML VIAL SLOW IVP PRN (13:56)
[2019-07-21] MEDS: Promethazine HCl 25 MG in Sodium Chloride 0.9% 50 ML IVPB PRN (16:00)
[2019-07-21] MEDS: Mag-Al Plus 1200 MG/1200 MG/120 MG/30 ML UDCUP PO PRN (16:02)
[2019-07-21 16:39] LABS: Troponin I Less than 0.010 ng/mL (< 0.028)
[2019-07-21] MEDS: Pramipexole Di-HCl 1 MG TAB PO SCH (20:53)
[2019-07-21] MEDS: traZODone HCl 50 MG TAB PO SCH (20:53)
[2019-07-21] MEDS: Melatonin 3 MG TAB PO SCH (20:53)
--- NOTE | 2019-07-22 01:44 | CON ---
DATE OF CONSULTATION: 07/21/2019 SERVICE: Pulmonary Medicine. REASON FOR CONSULTATION: COPD exacerbation. HISTORY OF PRESENT ILLNESS: The patient is a 49-year-old white female with past medical history significant for vocal cord dysfunction. She was in her usual state of health until about 5 days prior to admission when she started struggling with some difficulty breathing. She currently denies any fevers, chills, nausea, vomiting, or diarrhea. She is starting to have some vertiginous symptoms that accompany her wheezing episodes. She continues to have these chest discomforts that are quite vague and have been worked up previously. She had 2 prior pulmonary function studies, both demonstrated no evidence of obstructive airflow limitation. She has been intubated on multiple occasions. Immediately following intubation , she has immediate resolution in her respiratory issues. She denies having any fevers or chills. She is coughing and bringing up a little bit of phlegm. It does not have any significant color to it. She recently was diagnosed with sleep apnea and has been using her CPAP. Her download off this thing looks fantastic. When she originally put the machine on, she indicates that there is not enough pressure. As such, I have increased her initial pressure. She is telling me that she is having a hard time breathing, but demonstrates no conversational dyspnea. When she takes a deep breath without prompting, there is no audible airflow limitation. That being said, on auscultating, whenever she takes a normal breath, she has significant upper airway changes. PAST MEDICAL HISTORY: 1. Vocal cord dysfunction, certain. 2. Asthma, unlikely. 3. Obstructive sleep apnea. 4. Restless legs syndrome. 5. Fibromyalgia. 6. Anxiety disorder. 7. Coronary artery disease, not flow limiting. PAST SURGICAL HISTORY: 1. Cardiac catheterization. 2. Ulnar nerve transposition to both arms. 3. ACDF of C5, C6, C7. 4. Appendectomy. 5. Hysterectomy. 6. Tonsillectomy. 7. Bladder suspension. SOCIAL HISTORY: She has greater than 30 pack-year history of smoking. She has a history of vaping. Denies any current tobacco products indicating that she had quit it a couple of weeks ago. She denies any illicit drugs and has no exposure to chemicals, dust, asbestos, or tuberculosis. FAMILY HISTORY: Noncontributory. ALLERGIES: GEODON, PENICILLIN, DOXYCYCLINE, HALDOL, KETAMINE, KETOROLAC, LEVOFLOXACIN, LORATADINE, PENICILLIN G, TRAMADOL. MEDICATIONS: List of her inpatient medications was reviewed. I have once again deescalated her steroids, nebulized medications, and antibiotics. REVIEW OF SYSTEMS: General, head, ears, eyes, nose, throat, cardiovascular, respiratory, GI, , musculoskeletal, neurologic, and skin are negative except as mentioned in HPI. PHYSICAL EXAMINATION: VITAL SIGNS: Afebrile, pulse 83, blood pressure 142/76, respirations 16, saturation 92%, currently on room air. GENERAL: The patient is awake and alert, in no apparent distress. LUNGS: When I am talking to her, she is distracted, she does not have any obstructive airflow limitation and has a very normal respiratory pattern. That being said, when asking her to take a deep breath and blowing out slowly, she forces her vocal cords close, and audible wheezing is appreciated throughout the entire room. This transmits breath sounds into the bilateral lung tay, which makes it appear like a polyphonic wheeze which is not present during tidal breathing with distraction. HEENT: Normocephalic and atraumatic. Sclerae white. Conjunctivae pink. Oral mucosa is moist without lesions. HEART: Normal rate. Regular. ABDOMEN: Soft, nontender, and nondistended. Bowel sounds are positive. MUSCULOSKELETAL: No cyanosis or clubbing. There is no pitting in the bilateral lower extremities. NEUROLOGIC: Grossly nonfocal. LABORATORY DATA: WBC 15.6, hemoglobin 12.9, platelets 273,000. Neutrophil count is 84%. Of note, on presentation, her differential was completely normal. Eosinophil count was 900. Basic metabolic profile is otherwise unremarkable. Liver function studies are unremarkable. Lactate was originally 5.8, but is clear to 2.2. Procalcitonin 0.02, troponins are negative x3. Blood cultures x2 are negative. IMAGIN. Chest x-ray demonstrates no acute cardiopulmonary abnormality. 2. Ultrasound of bilateral lower extremities demonstrates no evidence of DVT. ASSESSMENT: 1. Vocal cord dysfunction. 2. Asthma, unlikely with possible acute exacerbation. 3. Chest pain, previously noncardiogenic in nature, status post history of negative catheterization, and stress test. 4. Vertigo, new symptom. DISCUSSION AND PLAN: I am going to be discontinuing all steroids, and change her nebulized medications to be used on a p.r.n. basis. She requires no antibiotics directed at lung issues. Dr. Grey has an established relationship with Ms. Rodriguez and will assume coverage in the morning. Cough suppressant medications will be interrupted. We once again discussed vocal cord maneuvers to hopefully decrease the impact this plays on her breathing. If she has additional issues through the night, I will be available to help out. 70 minutes have been devoted to this patient in various activities. I personally reviewed all imaging studies and laboratory data noted within this document. For fifty percent of this time, I was interacting with the patient at the bedside or coordinating care with the care team. For the remainder of the time I was immediately available to the patient in the hospital unit. Job ID: [id number] MTDD
[2019-07-22] MEDS: Mometasone 200 MCG HFA INHALER INH SCH (07:20)
[2019-07-22 07:22] VITALS: TEMP 97.9
[2019-07-22] MEDS: Carvedilol 6.25 MG TAB PO SCH (08:05)
[2019-07-22] MEDS: Nicotine 21 MG PATCH TD SCH (08:05)
[2019-07-22] MEDS: DULoxetine 60 MG CAP PO SCH (08:05)
[2019-07-22] MEDS: Sulfameth/Trimethoprim DS 800-160mg TAB PO SCH (08:05)
[2019-07-22 08:06] VITALS: BP 142/76
[2019-07-22] MEDS: Estradiol 1 MG TAB PO SCH (08:34)
[2019-07-22] MEDS: HYDROcodone/Acetaminophen 5/325 mg Tablet PO PRN (08:37)
--- NOTE | 2019-07-22 09:52 | PRG ---
DATE OF SERVICE: 07/22/2019 SUBJECTIVE: The patient is doing well. She wants to go home. OBJECTIVE: VITAL SIGNS: Temperature 97.9, pulse 73, blood pressure 142/76, O2 saturation 93%. HEENT: Unremarkable. NECK: No adenopathy or JVD. LUNGS: Clear. CARDIAC: S1, S2. Regular. ABDOMEN: Soft. EXTREMITIES: No edema. ASSESSMENT: 1. Chronic obstructive pulmonary disease, which is clinically stable and at baseline. 2. Borderline personality disorder. 3. History of malingering/factitious behavior. 4. Vocal cord dysfunction. PLAN: She is safe for discharge. She should continue her outpatient medications. Job ID: [id number]
[2019-07-22] MEDS: Ondansetron PF 4 MG/2 ML Vial IVP PRN (11:47)
[2019-07-22] MEDS: Promethazine HCl 25 MG in Sodium Chloride 0.9% 50 ML IVPB PRN (12:52)
--- NOTE | 2019-07-23 07:40 | DIS ---
DATE OF ADMISSION: 07/17/2019 DATE OF DISCHARGE: 07/22/2019 DISCHARGE DIAGNOSES: 1. Vocal cord dysfunction, active. 2. Asthma. 3. Chest pain, noncardiogenic in nature. 4. Vertigo. 5. Recent spider bite with a wound in the abdominal area, receiving wound care as an outpatient, and is on Bactrim. HISTORY OF PRESENT ILLNESS AND HOSPITAL COURSE: This is a 49-year-old female patient, who presented to our emergency room, and was admitted on 07/17/2019 with episodes of shortness of breath, she is known to have laryngeal spasm and follows with Dr. Grey as an outpatient. She usually requires to be intubated. During her stay, she did exhibit a manipulative behavior, she was asking for fentanyl whenever she get dressing changed on her wound, she did receive IV steroids for bronchospasms. It was noted that she did go outside the hospital to smoke, although, the patient denied that, so we offered her a nicotine patch, and her wheezing did not improve. Her pulse ox was around 90%, but then, she was seen by Pulmonary, and they highlighted that whenever she takes a good breath, her pulse ox does improve. This is consistent with vocal cord dysfunction, that also she was recently diagnosed with sleep apnea and doing well with CPAP. Her CPAP settings were adjusted by Pulmonary, and today she is very eager to leave. The patient will be discharged to continue her course of Bactrim and follow with the [facility] as an outpatient, she has an appointment in a couple of days, also to follow with Pulmonary, and she is advised to completely stop smoking. I did give her a prescription for nicotine patch, as per Pulmonary, she does not need to be steroids. PHYSICAL EXAMINATION: GENERAL: She appears to be doing well, in no acute distress. VITAL SIGNS: Her blood pressure is 142/76, heart rate of 73, temperature 97.9, saturating 93% on room air. HEENT: Head is nontraumatic, normocephalic. Pupils equal and reactive. Extraocular movements are intact. Nonicteric sclerae with injected conjunctivae. Oral mucosa normal. Nasal mucosa normal. NECK: Supple. No adenopathy, no mass. Thyroid is not palpable. Trachea is midline. No supraclavicular adenopathy. HEART: S1 and S2 regular. No murmur, no gallop, no frictional rubs. No displacement of PMI. LUNGS: Decreased air entry bilaterally, but with good breath, her lung sounds are much better. ABDOMEN: Soft. In the right lower quadrant area, she does have a wound that is healing well. There is no erythema around it. The wound is somewhat deep. There is some serous material coming out of it. No induration around it. EXTREMITIES: No lower extremity edema. No cyanosis. ASSESSMENT AND PLAN: This is a 49-year-old female patient, who presented with shortness of breath secondary to vocal cord dysfunction, during her stay, she received IV steroids with no major improvement, most likely due to the fact that her wheezing is due to her vocal cord dysfunction. She was seen by Pulmonology, who educated her about vocal cord dysfunction and how to take a good breath. She responded well to the CPAP, settings were adjusted, she did complain of chest pains, but her troponins were negative, and she just had a cardiac catheterization this year that did not show any severe coronary artery disease. She will be discharged on her home medications and on a nicotine patch, to continue her Bactrim, to follow up with her Wound Care Clinic. The above was explained to her in details and she verbalized understanding. More than half an hour was spent to discharge this patient. Job ID: [id number]
--- NOTE | 2019-07-23 16:49 | EKG ---
Test Reason : C/O CHEST PAIN Blood Pressure : / mmHG Vent. Rate : 068 BPM Atrial Rate : 068 BPM P-R Int : 164 ms QRS Dur : 086 ms QT Int : 388 ms P-R-T Axes : 054 062 064 degrees QTc Int : 412 ms Normal sinus rhythm ST elevation, consider early repolarization, pericarditis, or injury Abnormal ECG Confirmed by ANI GRESHAM ([id number]) on 07/23/2019 4:49:12 PM Referred By: MANASA Confirmed By:ANI GRESHAM
== END 2019-07-22 13:14 | disposition home or self-care (01) | DRG 191 ==
LOC: ERS 03:18 → EEVIPCON 08:05 → T4-A 08:05 → 2NO 11:27 → T4-A 07-18 15:42
PROVIDERS: ADMIT Internal Medicine; ATTEND Internal Medicine
DX: J44.1 Chronic obstructive pulmonary disease with (acute) exacerbation (principal); E87.2 Acidosis; L02.91 Cutaneous abscess, unspecified; F60.3 Borderline personality disorder; J38.5 Laryngeal spasm; G89.29 Other chronic pain; M54.41 Lumbago with sciatica, right side; G25.81 Restless legs syndrome; F32.9 Major depressive disorder, single episode, unspecified; F41.9 Anxiety disorder, unspecified; I25.10 Atherosclerotic heart disease of native coronary artery without angina pectoris; M79.7 Fibromyalgia; G47.33 Obstructive sleep apnea (adult) (pediatric); R42 Dizziness and giddiness; K59.00 Constipation, unspecified; Z98.1 Arthrodesis status; Z87.891 Personal history of nicotine dependence; Z88.0 Allergy status to penicillin; Z88.1 Allergy status to other antibiotic agents; Z88.5 Allergy status to narcotic agent; Z88.8 Allergy status to other drugs, medicaments and biological substances
CPT/HCPCS: 36415; 71045; 80048; 80053; 81003; 83605; 83880; 84145; 84484; 85025; 87040; 93005; 93010; 93970; 94640; 94760; 96365; 96375; J1170; J2060; J2405; J2550; J2920; J2930; J3010; J3475; J7611; J7620; Q0162

== ENCOUNTER 2019-08-01 16:27 | Emergency (ER) | payer BC ==
[2019-08-01 17:00] LABS: #Basophils 0.1 thou/uL (0.0-0.2); #Eosinphils 0.5 thou/uL (0.0-0.7); #Lymphocytes 3.6 thou/uL (1.20-3.40); #Monocytes 1.3 thou/uL (0.11-0.59); #Neutrophils 8.1 thou/uL (1.40-6.50); %Basophils 0.6 % (0.0-1.0); %Eosinophils 3.5 % (0.0-10.0); %Lymphocytes 26.6 % (21.0-51.0); %Monocytes 9.7 % (0.0-10.0); %Neutrophils 59.5 % (42.0-75.0); Hemoglobin 12.6 g/dL (12.0-16.0); Mean Corpuscular HGB CONC 32.3 g/dL (32.0-36.0); Mean Corpuscular Hemoglobin 28.4 pg (27.0-31.0); Mean Platelet Volume 7.8 fL (7.4-10.4); Platelet Count 201 thou/uL (130-400); RBC Distribution Width 15.8 % (11.5-14.5); Red Blood Cell (RBC) Count 4.43 mill/uL (4.20-5.40); White Blood Cell (WBC) Count 13.6 thou/uL (4.8-10.8)
--- NOTE | 2019-08-01 17:07 | RAD ---
PORTABLE CHEST: 08/01/19 HISTORY: Dyspnea. COMPARISON: 07/17/19 study. Heart size and mediastinum within normal limits. Lungs are clear of infiltrates. No bony findings. IMPRESSION: No active intrathoracic disease. POS: [facility]
[2019-08-01 17:21] LABS: ALT (SGPT) 19 U/L (8-55); AST (SGOT) 15 U/L (5-34); Albumin 3.9 g/dL (3.5-5.0); Alkaline Phosphatase 57 U/L (40-150); Anion Gap 13 mmol/L (10-20); BUN (Urea Nitrogen) 13 mg/dL (7.0-18.7); Bilirubin, Total 0.4 mg/dL (0.2-1.2); Calc. Creatinine Clearance 0 mL/min (70-130); Calcium 8.7 mg/dL (7.8-10.44); Carbon Dioxide 22 mmol/L (22-29); Chloride 109 mmol/L (98-107); Estimated GFR-MDRD 83; Globulin 2.6 g/dL (2.4-3.5); Glucose 118 mg/dL (70-105); Protein, Total 6.5 g/dL (6.0-8.3); Sodium 140 mmol/L (136-145)
[2019-08-01] MEDS ORDERED: Nitroglycerin 0.4 MG TAB 1 EACH ONE (17:38)
[2019-08-01] MEDS ORDERED: HYDROcodone/Acetaminophen 5/325 mg Tablet ONE (18:34)
[2019-08-01 19:06] LABS: Troponin I Less than 0.010 ng/mL (< 0.028)
== END 2019-08-01 19:35 | disposition home or self-care (01) ==
LOC: ERS 16:27
DX: R07.89 Other chest pain (principal); R06.00 Dyspnea, unspecified; I25.2 Old myocardial infarction; J44.9 Chronic obstructive pulmonary disease, unspecified; E11.649 Type 2 diabetes mellitus with hypoglycemia without coma; F41.9 Anxiety disorder, unspecified; Z87.891 Personal history of nicotine dependence; Z79.899 Other long term (current) drug therapy
CPT/HCPCS: 36415; 71045; 80053; 83690; 83880; 84484; 85025; 93005

== ENCOUNTER 2019-08-26 03:48 | Emergency (ER) | payer BC ==
[2019-08-26] MEDS ORDERED: predniSONE 20 MG TAB ONE (04:28)
[2019-08-26 04:37] LABS: #Basophils 0.1 thou/uL (0.0-0.2); #Eosinphils 0.6 thou/uL (0.0-0.7); #Lymphocytes 2.9 thou/uL (1.20-3.40); #Monocytes 1.2 thou/uL (0.11-0.59); #Neutrophils 6.7 thou/uL (1.40-6.50); %Basophils 0.9 % (0.0-1.0); %Eosinophils 5.3 % (0.0-10.0); %Lymphocytes 25.2 % (21.0-51.0); %Monocytes 10.5 % (0.0-10.0); %Neutrophils 58.2 % (42.0-75.0); Hemoglobin 13.1 g/dL (12.0-16.0); Mean Corpuscular HGB CONC 32.1 g/dL (32.0-36.0); Mean Corpuscular Volume 87.2 fL (78.0-98.0); Mean Platelet Volume 7.8 fL (7.4-10.4); Platelet Count 215 thou/uL (130-400); RBC Distribution Width 15.3 % (11.5-14.5); Red Blood Cell (RBC) Count 4.68 mill/uL (4.20-5.40); White Blood Cell (WBC) Count 11.5 thou/uL (4.8-10.8)
[2019-08-26 04:57] LABS: ALT (SGPT) 15 U/L (8-55); AST (SGOT) 13 U/L (5-34); Albumin 3.8 g/dL (3.5-5.0); Alkaline Phosphatase 57 U/L (40-110); Anion Gap 14 mmol/L (10-20); BUN (Urea Nitrogen) 12 mg/dL (7.0-18.7); Bilirubin, Total 0.5 mg/dL (0.2-1.2); CK (CPK) 83 U/L (29-168); Calc. Creatinine Clearance 0 mL/min (70-130); Calcium 9.3 mg/dL (7.8-10.44); Carbon Dioxide 24 mmol/L (22-29); Chloride 105 mmol/L (98-107); Estimated GFR-MDRD 73; Globulin 3.1 g/dL (2.4-3.5); Glucose 97 mg/dL (70-105); Potassium 3.8 mmol/L (3.5-5.1); Protein, Total 6.9 g/dL (6.0-8.3); Sodium 139 mmol/L (136-145)
--- NOTE | 2019-08-26 07:33 | RAD ---
Exam: Chest one view HISTORY:Dyspnea Comparison: 08/01/2019 FINDINGS: Lungs: No masses or consolidation. Cardiac silhouette: Normal size Pulmonary vessels: Normal Pleural Spaces: Clear Pneumothorax: None Osseous abnormalities: None of acuity. IMPRESSION: No focal consolidation.
--- NOTE | 2019-08-29 23:40 | EKG ---
Test Reason : Blood Pressure : / mmHG Vent. Rate : 092 BPM Atrial Rate : 092 BPM P-R Int : 166 ms QRS Dur : 072 ms QT Int : 358 ms P-R-T Axes : 055 052 059 degrees QTc Int : 442 ms Normal sinus rhythm Normal ECG Confirmed by LICHA FELIZ DO ([id number]), marketing editor MARIELENA DUQUE ([id number] on 08/29/2019 11:39:41 PM Referred By: Confirmed By:LICHA FELIZ DO
== END 2019-08-26 05:35 | disposition home or self-care (01) ==
LOC: ERS 03:48
DX: J44.1 Chronic obstructive pulmonary disease with (acute) exacerbation (principal); I25.10 Atherosclerotic heart disease of native coronary artery without angina pectoris; E11.9 Type 2 diabetes mellitus without complications; I25.2 Old myocardial infarction; F41.9 Anxiety disorder, unspecified; Z87.891 Personal history of nicotine dependence; Z79.899 Other long term (current) drug therapy
CPT/HCPCS: 71045; 80053; 82550; 83880; 84484; 85025; 93005; 94640; 94760; J7512; J7620

== ENCOUNTER 2019-09-15 13:54 | Outpatient (CLI) | payer BC ==
--- NOTE | 2019-09-15 14:52 | RAD ---
Chest 2 views HISTORY: Dyspnea. COMPARISON: 09/09/2019. FINDINGS: Cardiac silhouette and pulmonary vasculature are unremarkable. Mediastinum is midline. No c onfluent airspace consolidation, pneumothorax, or pleural fluid. Postoperative changes of the lower cervical spine. IMPRESSION: No active cardiopulmonary abnormalities are demonstrated.
== END 2019-09-15 13:55 | disposition home or self-care (01) ==
LOC: RAD 13:54
PROVIDERS: ATTEND Internal Medicine Critical Care Medicine
DX: R06.00 Dyspnea, unspecified (principal)
CPT/HCPCS: 71046

== ENCOUNTER 2019-09-19 22:41 | Inpatient (IN) | payer BC ==
[2019-09-19] MEDS ORDERED: Albuterol Sulfate 2.5 mg/3 ml Neb ONE (23:01)
[2019-09-19] MEDS ORDERED: Albuterol Sulfate 2.5 mg/0.5 ml Neb ONE (23:01)
[2019-09-19] MEDS ORDERED: methylPREDNISolone Sod Succ/PF 125 MG/2 ML VIAL ONE (23:16)
[2019-09-19] MEDS ORDERED: Lorazepam 2 MG/ML VIAL ONE (23:16)
[2019-09-19 23:36] LABS: #Basophils 0.1 thou/uL (0.0-0.2); #Eosinphils 2.1 thou/uL (0.0-0.7); #Lymphocytes 4.2 thou/uL (1.20-3.40); #Monocytes 1.6 thou/uL (0.11-0.59); #Neutrophils 8.1 thou/uL (1.40-6.50); %Basophils 0.8 % (0.0-1.0); %Monocytes 9.9 % (0.0-10.0); %Neutrophils 50.2 % (42.0-75.0); Hemoglobin 13.2 g/dL (12.0-16.0); Mean Corpuscular HGB CONC 32.2 g/dL (32.0-36.0); Mean Corpuscular Hemoglobin 28.2 pg (27.0-31.0); Mean Corpuscular Volume 87.5 fL (78.0-98.0); Mean Platelet Volume 7.9 fL (7.4-10.4); Platelet Count 298 thou/uL (130-400); RBC Distribution Width 14.3 % (11.5-14.5); Red Blood Cell (RBC) Count 4.67 mill/uL (4.20-5.40); White Blood Cell (WBC) Count 16.1 thou/uL (4.8-10.8)
[2019-09-19 23:47] LABS: Actual Bicarbonate (HCO3a) 26.5 mEq/L (22-28); Analyzer IN Cardio ER; Base Excess (BEa) 1.5 mEq/L (-2.0 to +3.0); Calcium, Ionized 1.19 mmol/L (1.12-1.30); Carboxyhemoglobin (COHb) 0.4 gm% (0.0-3.0); Hemoglobin (Hb) 13.1 g/dL (12.0-16.0); O2 Tension (PaO2) 61.7 mmHg (80.0-100.0); Potassium - ABG Lab 3.96 mmol/L (3.70-5.30); Puncture Site RRA; pH, Arterial 7.41 (7.35-7.45)
--- NOTE | 2019-09-19 23:49 | RAD ---
XR Chest 1 View Portable HISTORY: Shortness of breath and cough COMPARISON: 09/09/2019 study FINDINGS: Heart size and mediastinum are within normal limits. The lungs are clear of infiltrates. Po stoperative changes of the cervical spine are noted. IMPRESSION: No active intrathoracic disease.
[2019-09-19] MEDS ORDERED: Magnesium 2 GM/50 ML BAG (IN WATER) ONE (23:51)
[2019-09-20 00:02] LABS: ALT (SGPT) 12 U/L (8-55); AST (SGOT) 16 U/L (5-34); Alkaline Phosphatase 57 U/L (40-110); Anion Gap 17 mmol/L (10-20); BUN (Urea Nitrogen) 23 mg/dL (7.0-18.7); Bilirubin, Total 0.2 mg/dL (0.2-1.2); Calc. Creatinine Clearance 0 mL/min (70-130); Calcium 9.7 mg/dL (7.8-10.44); Carbon Dioxide 25 mmol/L (22-29); Chloride 101 mmol/L (98-107); Estimated GFR-MDRD 39; Globulin 3.5 g/dL (2.4-3.5); Glucose 90 mg/dL (70-105); Potassium 4.1 mmol/L (3.5-5.1); Protein, Total 7.5 g/dL (6.0-8.3); Sodium 139 mmol/L (136-145)
[2019-09-20] MEDS ORDERED: cefTRIAXone\\ROCEPHIN 1 GM VIAL ONE (00:27)
[2019-09-20] MEDS ORDERED: Fentanyl 100 MCG/2 ML VIAL ONE (01:33)
[2019-09-20] MEDS ORDERED: Acetaminophen 325 MG TAB PO PRN (01:57)
[2019-09-20] MEDS ORDERED: Lactated Ringer's 1,000 ML IV SCH (01:57)
[2019-09-20] MEDS ORDERED: Ondansetron ODT 4 MG TAB SL PRN (01:57)
[2019-09-20] MEDS ORDERED: Ondansetron PF 4 MG/2 ML Vial IVP PRN ×2 (01:57→05:28)
[2019-09-20] MEDS ORDERED: Albuterol Sulfate 2.5 mg/3 ml Neb NEB SCH (02:30)
[2019-09-20 03:11] VITALS: BMI 27.0
[2019-09-20] MEDS ORDERED: Acetaminophen 500 MG TAB PO PRN (05:28)
[2019-09-20] MEDS ORDERED: Ondansetron ODT 4 MG TAB PO PRN (05:28)
[2019-09-20] MEDS ORDERED: hydrALAZINE 20 MG/ML VIAL SLOW IVP PRN (05:28)
[2019-09-20] MEDS ORDERED: Senokot S 8.6-50 MG TAB PO PRN (05:28)
[2019-09-20] MEDS ORDERED: Bisacodyl 5 MG TAB PO PRN (05:28)
[2019-09-20] MEDS ORDERED: Benzonatate 100 MG CAP PO PRN (05:28)
[2019-09-20] MEDS: Fentanyl 100 MCG/2 ML VIAL SLOW IVP PRN ×7 (06:15→23:45)
[2019-09-20] MEDS: Sodium Chloride 0.9% 1,000 ML IV SCH ×2 (06:17→07:57)
[2019-09-20] MEDS: Nicotine 21 MG PATCH TD SCH (07:20)
[2019-09-20] MEDS: Arformoterol 15 MCG/2 ML NEB NEB SCH ×2 (07:22→19:09)
[2019-09-20] MEDS: Mometasone 200 MCG HFA INHALER INH SCH ×2 (07:26→19:09)
[2019-09-20] MEDS: Carvedilol 6.25 MG TAB PO SCH ×2 (07:55→17:45)
[2019-09-20] MEDS: Azithromycin 250 MG TAB PO SCH (07:56)
[2019-09-20] MEDS: Famotidine 20 MG TAB PO SCH ×2 (07:56→20:07)
[2019-09-20] MEDS: Montelukast Sodium 10 mg Tablet PO SCH (07:56)
[2019-09-20] MEDS: HYDROcodone/Acetaminophen 10/325 mg Tablet PO SCH ×3 (07:56→20:07)
[2019-09-20] MEDS: predniSONE 20 MG TAB PO SCH (07:56)
[2019-09-20] MEDS: Estradiol 1 MG TAB PO SCH (09:11)
--- NOTE | 2019-09-20 09:34 | HP ---
PRIMARY CARE PROVIDER: Melvina Copeland MD at [facility]. CHIEF COMPLAINT: Back pain and shortness of breath. HISTORY OF PRESENT ILLNESS: This is a 49-year-old female, who presented to [facility] Emergency Department complaining of persistent shortness of breath, propagated by increased anxiety, related to progressive back pain. The patient states she has lumbar radiculopathy and lumbar disk disease with current plans for surgical intervention later in the month of 09/2019. The patient was recently admitted to [facility] from 09/09/2019 through 09/10/2019 for COPD exacerbation and back pain. The patient states that the back pain has progressed, limiting her mobility and activities of daily living. The patient has minimal relief with her oral pain medications to include [place] 10/325 mg t.i.d. The patient states she completed her recent tapering prednisone prescription after most recent admission as well as limiting her tobacco intake to 1 cigarette daily. The patient states she has been followed by Pain Clinic for assistance in pain management; however, she states she is ready to pursue surgical intervention to alleviate her symptoms. The patient denies any specific fever, chills, productive cough, or chest pain. In the emergency room, the patient underwent general evaluation including chest imaging, showing no acute infiltrate. The patient was treated for COPD exacerbation with IV magnesium sulfate, Solu-Medrol, bronchodilator therapy with DuoNeb and albuterol sulfate solution. The patient also received IV fentanyl, Rocephin, and intravenous normal saline. The patient was initially placed on BiPAP noninvasive mechanical ventilation due to hypoxia; however, the patient refused to wear the mask and remained on nasal cannula. PAST MEDICAL HISTORY: 1. Chronic obstructive pulmonary disease. 2. Coronary vasospasms. 3. Hypoglycemia. 4. Lumbar radiculopathy. 5. Cervical spinal stenosis. 6. Anxiety/depression. 7. Tobacco abuse. PAST SURGICAL HISTORY: 1. Status post appendectomy. 2. Status post hysterectomy. 3. Status post cardiac catheterization. 4. Status post ulnar nerve transposition of bilateral upper extremities. 5. Status post cervical spinal fusion, C5 through C7. 6. Status post tonsillectomy. 7. Status post bladder suspension. CURRENT MEDICATIONS: 1. Ventolin 3 mL nebulized q.4 h. p.r.n. 2. Brovana 15 mcg nebulized b.i.d. 3. Estradiol 2 mg p.o. daily. 4. [place] 10/325 mg one tablet p.o. t.i.d. p.r.n. pain. 5. DuoNeb 3 mL nebulized q.4 h. p.r.n. 6. Melatonin 3 mg p.o. nightly. 7. Singulair 10 mg p.o. daily. 8. NicoDerm patch 21 mg transdermally daily. 9. Nitroglycerin 0.3 mg sublingually every 5 minutes p.r.n. chest pain. 10. Mirapex 2 mg p.o. nightly. 11. Trazodone 50 mg p.o. nightly. 12. Coreg 6.25 mg p.o. b.i.d. 13. Asmanex one puff inhaled b.i.d. ALLERGIES: ZIPRASIDONE, PENICILLIN, DOXYCYCLINE, HALDOL, KETAMINE, AND TORADOL. FAMILY HISTORY: No inheritable disease per patient report. SOCIAL HISTORY: The patient is , accompanied by her in the hospital. Resides in [place], [place]. Disabled. Smokes up to 2 to 3 cigarettes daily. No alcohol or illicit drug use. REVIEW OF SYSTEMS: CONSTITUTIONAL: Negative for weight loss or gain. SKIN: Negative for rash, itching. EYES: Negative for double vision, pain. ENT/MOUTH: Negative for nose bleeding, neck stiffness, pain, tenderness. CARDIOVASCULAR: Negative for palpitations, dyspnea on exertion, orthopnea. RESPIRATORY: Negative for wheezing, cough, hemoptysis, fever or night sweats. GASTROINTESTINAL: Negative for poor appetite, abdominal pain, heartburn, nausea, vomiting, constipation, or diarrhea. GENITOURINARY: Negative for urgency, frequency, dysuria, nocturia. MUSCULOSKELETAL: Negative for swelling. ALLERGY/IMMUNOLOGIC: Negative for skin rash, bleeding tendency. Otherwise negative except as stated per HPI. PHYSICAL EXAMINATION: VITAL SIGNS: On admission. Blood pressure 121/67, pulse 92, respiratory rate 18, temperature 98.7 degrees Fahrenheit, O2 saturation 95% on 3L/minute via nasal cannula. GENERAL APPEARANCE: This is a 49-year-old female, alert and oriented x3, pleasant, responsive, talkative, in mild distress. HEENT: Pupils are equal, round, and reactive to light and accommodation. Extraocular muscles are intact. No scleral icterus. No conjunctival injection. Nares are patent. OP is clear. Teeth in fair repair. NECK: Supple. No cervical adenopathy. No thyromegaly. No carotid bruits. No JVD appreciated. Cervical spine with full active and passive range of motion. No meningeal signs noted. CHEST: Bilateral expiratory wheezes with prolonged expiratory phase and coarse rhonchi. Diminished air flow in the bases. CARDIOVASCULAR: S1 and S2 without noted murmur, rub, or gallop. ABDOMEN: Rounded, soft, nontender, and nondistended. Bowel sounds are positive in all 4 quadrants. No hepatosplenomegaly. No abdominal bruits. No rebound or guarding appreciated. EXTREMITIES: Warm and dry with fair turgor. No clubbing, cyanosis, or asymmetric edema appreciated. Pulses are palpable distally at the dorsalis pedis, posterior tibial, and popliteal arteries bilaterally. Capillary refill less than 2 seconds. NEUROLOGIC: Cranial nerves 2 through 12 are grossly intact. No focal or lateralizing signs appreciated. PERTINENT LABORATORY AND X-RAY FINDINGS: Sodium 139, potassium 4.1, chloride 101, CO2 of 25, BUN 23, creatinine 1.43, estimated GFR of 39, glucose 90, and calcium 9.7. Magnesium 2.0. LFTs within normal limits. BNP 19 and troponin-I less than 0.010. CBC showed a white blood cell count of 16.1, hemoglobin 13, hematocrit 41, platelet count 298 with 50% neutrophils. Portable chest x-ray, dated 09/19/2019, showed no acute cardiopulmonary process. EKG, dated 09/20/2019, by my interpretation shows a sinus mechanism with heart rates in the 80s. Normal R-wave progression noted in the precordial leads. Normal axis. No acute ST-T wave changes appreciated. ASSESSMENT AND PLAN: 1. Acute chronic obstructive pulmonary disease exacerbation. The patient will be admitted to the medical floor. We will continue DuoNebs q.4 h. as scheduled. Prednisone 40 mg daily. Add Brovana 15 mcg nebulized b.i.d. Zithromax 500 mg p.o. daily. Resume Singulair 10 mg daily. Continue oxygen as needed to maintain O2 saturations greater than or equal to 90%. 2. Acute kidney injury. Suspect secondary to volume depletion. Continue intravenous normal saline at 75 mL/h. Avoid nephrotoxic agents and limit contrast exposure. Repeat creatinine in the a.m. 3. Lumbar radiculopathy with back pain. We will continue pain control with fentanyl 25 mcg IV q.3 h. p.r.n. Resume home regimen of [place] 10/325 mg p.o. t.i.d. Plan for surgical decompression in 09/2019. 4. Anxiety/depression. Continue home regimen to include trazodone 50 mg nightly. 5. Prophylaxis. Sequential compression devices while in bed. Pepcid 20 mg p.o. b.i.d. Consider physical therapy evaluation for functional assessment. 6. Code status is full. Surrogate medical decision maker is the patient's spouse. Job ID: [id number]
--- NOTE | 2019-09-20 16:13 | PDOC.HOSPP ---
- Subjective Encounter Date: 09/20/19 Encounter Time: 16:10 Subjective: Ms. Rodriguez was seen today in follow-up of COPD exacerbation, and severe back pain. She does not have any new complaints. She notes continued back pain. - Objective Vital Signs & Weight: Vital Signs (12 hours) Temp Pulse Resp BP BP Pulse Ox 09/20/19 15:17 98.4 F 88 16 105/67 94 L 09/20/19 15:06 89 20 99 09/20/19 08:00 98.6 F 97 20 111/60 99 09/20/19 07:55 111/60 09/20/19 07:32 95 09/20/19 07:22 86 18 98 09/20/19 04:30 16 108/67 100 Weight Weight 178 lb Result Diagrams: 09/19/19 23:07 09/19/19 23:07 Hospitalist ROS - Medication Medications: Active Medications Generic Name Dose Route Start Last Admin Trade Name Freq PRN Reason Stop Dose Admin Hydrocodone Bitart/Acetaminophen 1 tab 09/20/19 09:00 09/20/19 14:59 [place] 10/325 PO 1 tab TID [place] Administration Albuterol/Ipratropium 3 ml 09/20/19 06:30 09/20/19 15:06 Duoneb NEB 3 ml [id number] [place] Administration Arformoterol Tartrate 15 mcg 09/20/19 06:30 09/20/19 07:22 Brovana NEB 15 mcg BID-RT [place] Administration Azithromycin 500 mg 09/20/19 09:00 09/20/19 07:56 Zithromax PO 500 mg DAILY [place] Administration Carvedilol 6.25 mg 09/20/19 08:00 09/20/19 07:55 Coreg PO 6.25 mg BID-WM [place] Administration Estradiol 2 mg 09/20/19 09:00 09/20/19 09:11 Estrace PO 2 mg DAILY [place] Administration Famotidine 20 mg 09/20/19 09:00 09/20/19 07:56 Pepcid PO 20 mg BID [place] Administration Fentanyl 25 mcg 09/20/19 05:28 09/20/19 14:59 Sublimaze SLOW IVP 25 mcg Q3H PRN Administration Moderate to Severe Pain (6-10) Sodium Chloride 1,000 mls @ 75 mls/hr 09/20/19 05:30 09/20/19 07:57 Normal Saline 0.9% IV 1,000 mls .[id number] [place] Administration Mometasone Furoate 1 puff 09/20/19 06:30 09/20/19 07:26 Asmanex Hfa 200 Mcg INH 1 puff BID-RT [place] Administration Montelukast Sodium 10 mg 09/20/19 09:00 09/20/19 07:56 Singulair PO 10 mg DAILY [place] Administration Nicotine 21 mg 09/20/19 05:30 09/20/19 07:20 Nicoderm Patch TD 21 mg Q24HR [place] Administration Prednisone 40 mg 09/20/19 09:00 09/20/19 07:56 Prednisone PO 40 mg DAILY [place] Administration - Exam Eye: PERRL Heart: RRR, no murmur, no gallops, no rubs, normal peripheral pulses Respiratory: no rales, no ronchi, wheezes Gastrointestinal: soft, non-tender, non-distended, normal bowel sounds, no palpable masses, no hepatomegaly Extremities: no cyanosis, no edema Hosp A/P (1) Acute and chronic respiratory failure Code(s): J96.20 - ACUTE AND CHR RESP FAILURE, UNSP W HYPOXIA OR HYPERCAPNIA Status: Acute (2) COPD exacerbation Code(s): J44.1 - CHRONIC OBSTRUCTIVE PULMONARY DISEASE W (ACUTE) EXACERBATION Status: Acute (3) Anxiety and depression Code(s): F41.9 - ANXIETY DISORDER, UNSPECIFIED; F32.9 - MAJOR DEPRESSIVE DISORDER, SINGLE EPISODE, UNSPECIFIED Status: Chronic (4) Chronic pain syndrome Code(s): G89.4 - CHRONIC PAIN SYNDROME Status: Chronic (5) Vocal cord dysfunction Code(s): J38.3 - OTHER DISEASES OF VOCAL CORDS Status: Chronic - Plan * COPD exacerbation- continue Duonebs, steroids, and Azithromycin * Chronic pain- continue the current regimen * Hopefully she can have surgery soon
[2019-09-20] MEDS: diphenhydrAMINE 25 MG CAP PO PRN (20:07)
[2019-09-20] MEDS: Pramipexole Di-HCl 1 MG TAB PO SCH (20:07)
[2019-09-20] MEDS: traZODone HCl 50 MG TAB PO SCH (20:07)
[2019-09-20] MEDS: Melatonin 3 MG TAB PO SCH (20:07)
[2019-09-21] MEDS: Sodium Chloride 0.9% 1,000 ML IV SCH (01:00)
[2019-09-21] MEDS: Nicotine 21 MG PATCH TD SCH ×2 (05:59→18:39)
[2019-09-21] MEDS: Fentanyl 100 MCG/2 ML VIAL SLOW IVP PRN ×5 (05:59→23:02)
[2019-09-21] MEDS: Arformoterol 15 MCG/2 ML NEB NEB SCH ×2 (06:35→18:17)
[2019-09-21] MEDS: Mometasone 200 MCG HFA INHALER INH SCH ×2 (06:40→18:17)
[2019-09-21] MEDS: predniSONE 20 MG TAB PO SCH (08:32)
[2019-09-21] MEDS: HYDROcodone/Acetaminophen 10/325 mg Tablet PO SCH ×3 (08:32→20:31)
[2019-09-21] MEDS: Carvedilol 6.25 MG TAB PO SCH ×2 (08:32→18:38)
[2019-09-21] MEDS: Montelukast Sodium 10 mg Tablet PO SCH (08:32)
[2019-09-21] MEDS: Azithromycin 250 MG TAB PO SCH (08:33)
[2019-09-21] MEDS: Estradiol 1 MG TAB PO SCH (08:33)
[2019-09-21] MEDS: Famotidine 20 MG TAB PO SCH ×2 (09:00→20:31)
[2019-09-21] MEDS: diphenhydrAMINE 25 MG CAP PO PRN ×3 (09:44→20:31)
--- NOTE | 2019-09-21 13:48 | PDOC.HOSPP ---
- Subjective Encounter Date: 09/21/19 Encounter Time: 13:47 Subjective: Ms. Rodriguez was seen today in follow-up of COPD exacerbation and chronic back pain. She does not have any complaints. She notes continued tight wheezing and some shortness of breath. - Objective Vital Signs & Weight: Vital Signs (12 hours) Temp Pulse Resp BP Pulse Ox 09/21/19 11:44 98.5 F 68 20 122/74 99 09/21/19 10:17 89 18 98 09/21/19 08:00 97.7 F 72 18 120/80 98 09/21/19 06:35 91 20 98 09/21/19 04:27 98.6 F 79 16 110/72 95 Weight Weight 178 lb I&O: 09/20/19 09/21/19 09/22/19 06:59 06:59 06:59 Intake Total 2827 Balance 2827 Result Diagrams: 09/19/19 23:07 09/19/19 23:07 Hospitalist ROS - Medication Medications: Active Medications Generic Name Dose Route Start Last Admin Trade Name Freq PRN Reason Stop Dose Admin Hydrocodone Bitart/Acetaminophen 1 tab 09/20/19 09:00 09/21/19 08:32 [place] 10/325 PO 1 tab TID [place] Administration Albuterol/Ipratropium 3 ml 09/20/19 06:30 09/21/19 10:17 Duoneb NEB 3 ml [id number] [place] Administration Arformoterol Tartrate 15 mcg 09/20/19 06:30 09/21/19 06:35 Brovana NEB 15 mcg BID-RT [place] Administration Azithromycin 500 mg 09/20/19 09:00 09/21/19 08:33 Zithromax PO 500 mg DAILY [place] Administration Bisacodyl 10 mg 09/20/19 05:28 09/20/19 18:01 Dulcolax PO 10 mg DAILYPRN PRN Administration Constipation Carvedilol 6.25 mg 09/20/19 08:00 09/21/19 08:32 Coreg PO 6.25 mg BID-WM [place] Administration Diphenhydramine HCl 25 mg 09/20/19 05:28 09/21/19 09:44 Benadryl PO 25 mg Q4H PRN Administration Itching & Hives (mild) Estradiol 2 mg 09/20/19 09:00 09/21/19 08:33 Estrace PO 2 mg DAILY [place] Administration Famotidine 20 mg 09/20/19 09:00 09/20/19 20:07 Pepcid PO 20 mg BID [place] Administration Fentanyl 25 mcg 09/20/19 05:28 09/21/19 09:48 Sublimaze SLOW IVP 25 mcg Q3H PRN Administration Moderate to Severe Pain (6-10) Melatonin 3 mg 09/20/19 21:00 09/20/19 20:07 Melatonin PO 3 mg HS [place] Administration Mometasone Furoate 1 puff 09/20/19 06:30 09/21/19 06:40 Asmanex Hfa 200 Mcg INH 1 puff BID-RT [place] Administration Montelukast Sodium 10 mg 09/20/19 09:00 09/21/19 08:32 Singulair PO 10 mg DAILY [place] Administration Nicotine 21 mg 09/20/19 05:30 09/21/19 05:59 Nicoderm Patch TD 21 mg Q24HR [place] Administration Pramipexole Dihydrochloride 4 mg 09/20/19 21:00 09/20/19 20:07 Mirapex PO 4 mg QPM [place] Administration Prednisone 40 mg 09/20/19 09:00 09/21/19 08:32 Prednisone PO 40 mg DAILY [place] Administration Sodium Chloride 10 ml 09/21/19 09:00 09/21/19 09:49 Flush - Normal Saline IVF 10 ml Q12HR [place] Administration Sodium Chloride 10 ml 09/21/19 05:37 09/21/19 09:49 Flush - Normal Saline IVF 10 ml PRN PRN Administration Saline Flush Trazodone HCl 50 mg 09/20/19 21:00 09/20/19 20:07 Desyrel PO 50 mg HS [place] Administration - Exam Eye: PERRL Heart: RRR, no murmur, no gallops, no rubs, normal peripheral pulses Respiratory: no rales, no ronchi, normal chest expansion, wheezes (Bilaterally rathe tight, and some stridor as well) Gastrointestinal: soft, non-tender, non-distended, normal bowel sounds, no palpable masses, no hepatomegaly, no splenomegaly Extremities: no cyanosis, 1+ LE edema Hosp A/P (1) Acute and chronic respiratory failure Code(s): J96.20 - ACUTE AND CHR RESP FAILURE, UNSP W HYPOXIA OR HYPERCAPNIA Status: Acute (2) COPD exacerbation Code(s): J44.1 - CHRONIC OBSTRUCTIVE PULMONARY DISEASE W (ACUTE) EXACERBATION Status: Acute (3) Anxiety and depression Code(s): F41.9 - ANXIETY DISORDER, UNSPECIFIED; F32.9 - MAJOR DEPRESSIVE DISORDER, SINGLE EPISODE, UNSPECIFIED Status: Chronic (4) Chronic pain syndrome Code(s): G89.4 - CHRONIC PAIN SYNDROME Status: Chronic (5) Vocal cord dysfunction Code(s): J38.3 - OTHER DISEASES OF VOCAL CORDS Status: Chronic - Plan * COPD exacerbation- continue Duonebs, steroids, and Azithromycin- will begin to marcy steroids, and add Rocephin and Mucinex * Chronic pain- continue the current regimen * Anticipate home tomorrow
[2019-09-21] MEDS: cefTRIAXone\\ROCEPHIN 1 GM in Sodium Chloride 0.9% 100 ML IVPB SCH (15:07)
[2019-09-21] MEDS: Pramipexole Di-HCl 1 MG TAB PO SCH (20:31)
[2019-09-21] MEDS: guaiFENesin ER 600 MG TAB PO SCH (20:31)
[2019-09-21] MEDS: traZODone HCl 50 MG TAB PO SCH (20:31)
[2019-09-21] MEDS: Melatonin 3 MG TAB PO SCH (20:31)
[2019-09-22] MEDS: Nicotine 21 MG PATCH TD SCH (05:44)
[2019-09-22] MEDS: Fentanyl 100 MCG/2 ML VIAL SLOW IVP PRN ×3 (05:44→12:58)
[2019-09-22] MEDS: Arformoterol 15 MCG/2 ML NEB NEB SCH (06:32)
[2019-09-22] MEDS: Mometasone 200 MCG HFA INHALER INH SCH (06:34)
[2019-09-22] MEDS ORDERED: predniSONE 5 MG TAB PO SCH (08:00)
[2019-09-22] MEDS: diphenhydrAMINE 25 MG CAP PO PRN ×2 (08:44→14:11)
[2019-09-22] MEDS: guaiFENesin ER 600 MG TAB PO SCH (08:48)
[2019-09-22] MEDS: Famotidine 20 MG TAB PO SCH (08:49)
[2019-09-22] MEDS: Montelukast Sodium 10 mg Tablet PO SCH (08:49)
[2019-09-22] MEDS: Estradiol 1 MG TAB PO SCH (08:49)
[2019-09-22] MEDS: Carvedilol 6.25 MG TAB PO SCH (08:49)
[2019-09-22] MEDS: Azithromycin 250 MG TAB PO SCH (08:49)
[2019-09-22] MEDS: HYDROcodone/Acetaminophen 10/325 mg Tablet PO SCH ×2 (08:50→14:04)
[2019-09-22] MEDS: cefTRIAXone\\ROCEPHIN 1 GM in Sodium Chloride 0.9% 100 ML IVPB SCH (14:06)
--- NOTE | 2019-09-22 14:53 | PDOC.HOSPP ---
- Subjective Encounter Date: 09/22/19 Encounter Time: 14:51 Subjective: Ms. Rodriguez was seen today in follow-up of COPD exacerbation. She says she is feeling better. - Objective Vital Signs & Weight: Vital Signs (12 hours) Temp Pulse Resp BP Pulse Ox 09/22/19 10:08 72 16 97 09/22/19 08:50 97 09/22/19 07:34 98.4 F 72 16 128/76 97 09/22/19 06:32 88 16 98 Weight Weight 178 lb I&O: 09/21/19 09/22/19 09/23/19 06:59 06:59 06:59 Intake Total 2827 753 Balance 2827 753 Result Diagrams: 09/19/19 23:07 09/19/19 23:07 Hospitalist ROS - Medication Medications: Active Medications Generic Name Dose Route Start Last Admin Trade Name Freq PRN Reason Stop Dose Admin Hydrocodone Bitart/Acetaminophen 1 tab 09/20/19 09:00 09/22/19 14:04 [place] 10/325 PO 1 tab TID [place] Administration Albuterol/Ipratropium 3 ml 09/20/19 06:30 09/22/19 14:11 Duoneb NEB 3 ml [id number] [place] Administration Arformoterol Tartrate 15 mcg 09/20/19 06:30 09/22/19 06:32 Brovana NEB 15 mcg BID-RT [place] Administration Azithromycin 500 mg 09/20/19 09:00 09/22/19 08:49 Zithromax PO 500 mg DAILY [place] Administration Bisacodyl 10 mg 09/20/19 05:28 09/20/19 18:01 Dulcolax PO 10 mg DAILYPRN PRN Administration Constipation Carvedilol 6.25 mg 09/20/19 08:00 09/22/19 08:49 Coreg PO 6.25 mg BID-WM [place] Administration Diphenhydramine HCl 25 mg 09/21/19 19:28 09/22/19 14:11 Benadryl PO 25 mg Q4H PRN Administration Itching & Hives (mild)/anxiety Estradiol 2 mg 09/20/19 09:00 09/22/19 08:49 Estrace PO 2 mg DAILY [place] Administration Famotidine 20 mg 09/20/19 09:00 09/22/19 08:49 Pepcid PO 20 mg BID [place] Administration Fentanyl 25 mcg 09/20/19 05:28 09/22/19 12:58 Sublimaze SLOW IVP 25 mcg Q3H PRN Administration Moderate to Severe Pain (6-10) Guaifenesin 600 mg 09/21/19 21:00 09/22/19 08:48 Mucinex PO 600 mg Q12HR [place] Administration Ceftriaxone Sodium 1 gm/ 100 mls @ 200 mls/hr 09/21/19 14:00 09/22/19 14:06 Sodium Chloride IVPB 100 mls 1400 [place] Administration Melatonin 3 mg 09/20/19 21:00 09/21/19 20:31 Melatonin PO 3 mg HS [place] Administration Mometasone Furoate 1 puff 09/20/19 06:30 09/22/19 06:34 Asmanex Hfa 200 Mcg INH 1 puff BID-RT [place] Administration Montelukast Sodium 10 mg 09/20/19 09:00 09/22/19 08:49 Singulair PO 10 mg DAILY [place] Administration Nicotine 21 mg 09/20/19 05:30 09/22/19 05:44 Nicoderm Patch TD 21 mg Q24HR [place] Administration Pramipexole Dihydrochloride 4 mg 09/20/19 21:00 09/21/19 20:31 Mirapex PO 4 mg QPM [place] Administration Prednisone 10 mg 09/22/19 08:00 09/22/19 08:49 Prednisone PO 10 mg QAM-WM [place] Administration Sodium Chloride 10 ml 09/21/19 09:00 09/22/19 08:49 Flush - Normal Saline IVF 10 ml Q12HR [place] Administration Sodium Chloride 10 ml 09/21/19 05:37 09/21/19 16:47 Flush - Normal Saline IVF 10 ml PRN PRN Administration Saline Flush Trazodone HCl 50 mg 09/20/19 21:00 09/21/19 20:31 Desyrel PO 50 mg HS [place] Administration - Exam Eye: PERRL, anicteric sclera Heart: RRR, no murmur, no gallops, no rubs, normal peripheral pulses Respiratory: no rales, no ronchi, normal chest expansion, wheezes Gastrointestinal: soft, non-tender, non-distended, normal bowel sounds, no palpable masses, no hepatomegaly Extremities: no cyanosis, no clubbing, no edema Hosp A/P (1) Acute and chronic respiratory failure Code(s): J96.20 - ACUTE AND CHR RESP FAILURE, UNSP W HYPOXIA OR HYPERCAPNIA Status: Acute (2) COPD exacerbation Code(s): J44.1 - CHRONIC OBSTRUCTIVE PULMONARY DISEASE W (ACUTE) EXACERBATION Status: Acute (3) Anxiety and depression Code(s): F41.9 - ANXIETY DISORDER, UNSPECIFIED; F32.9 - MAJOR DEPRESSIVE DISORDER, SINGLE EPISODE, UNSPECIFIED Status: Chronic (4) Chronic pain syndrome Code(s): G89.4 - CHRONIC PAIN SYNDROME Status: Chronic (5) Vocal cord dysfunction Code(s): J38.3 - OTHER DISEASES OF VOCAL CORDS Status: Chronic - Plan * COPD exacerbation- improved * Chronic pain- stable- plan for Spinal Surgery later this week * for discharge home tody
[2019-09-22 16:52] VITALS: BP 127/80; TEMP 98.3
--- NOTE | 2019-09-22 21:30 | DIS ---
DATE OF ADMISSION: 09/20/2019 DATE OF DISCHARGE: 09/22/2019 DISCHARGE DISPOSITION: Home. PRIMARY DISCHARGE DIAGNOSES: 1. Chronic obstructive pulmonary disease exacerbation. 2. [id number] respiratory failure with hypoxemia. 3. Chronic pain syndrome. 4. Chronic lumbar disk disease. 5. Cervical spinal stenosis. 6. Lumbar radiculopathy. 7. Anxiety and depression. DISCHARGE MEDICATIONS: Include: 1. Asmanex 1 puff twice daily. 2. Carvedilol 6.25 mg twice daily. 3. Azithromycin 250 mg daily. 4. Trazodone 50 mg at bedtime. 5. Mirapex. 6. Nitrostat 0.3 sublingual as directed. 7. Singulair 10 mg daily. 8. Melatonin 3 mg at bedtime. 9. Estradiol 2 mg daily. 10. Brovana 15 mcg twice daily. 11. Ventolin inhaler. CODE STATUS: Full code. ALLERGIES: ZIPRASIDONE, PENICILLIN, DOXYCYCLINE, HALOPERIDOL, KETAMINE, HALDOL AND LEVAQUIN. HOSPITAL COURSE: Ms. Rodriguez is a pleasant 49-year-old female who was admitted to the hospital with acute respiratory failure secondary to chronic obstructive pulmonary disease. She was admitted to the hospital and started on DuoNebs, steroids, and empiric antibiotics. Over the course of the next couple of days, she improved and she was able to be discharged home on 09/22/2019. With regard to her chronic back, she plans to have surgery for a lumbar laminectomy. She showed me the paperwork for this while she was in the hospital. She tells me she has already had pulmonary clearance for this. The patient once again is being discharged today on 09/22/2019. Job ID: [id number]
== END 2019-09-22 16:54 | disposition home or self-care (01) | DRG 189 ==
LOC: ERS 22:41 → T4-A 09-20 01:51
PROVIDERS: ADMIT Family Medicine; ATTEND Family Medicine
DX: J96.21 Acute and chronic respiratory failure with hypoxia (principal); J44.1 Chronic obstructive pulmonary disease with (acute) exacerbation; N17.9 Acute kidney failure, unspecified; M48.02 Spinal stenosis, cervical region; F41.9 Anxiety disorder, unspecified; J38.3 Other diseases of vocal cords; G89.4 Chronic pain syndrome; M51.16 Intervertebral disc disorders with radiculopathy, lumbar region; F32.9 Major depressive disorder, single episode, unspecified; Z90.710 Acquired absence of both cervix and uterus; Z88.6 Allergy status to analgesic agent; Z88.1 Allergy status to other antibiotic agents; Z88.0 Allergy status to penicillin; Z88.8 Allergy status to other drugs, medicaments and biological substances; Z79.899 Other long term (current) drug therapy
CPT/HCPCS: 71045; 80053; 82805; 83735; 83880; 84484; 85025; 93005; 94640; 94660; 94760; 96365; 96367; 96375; J0696; J2060; J2930; J3010; J3475; J3490; J7512; J7611; J7620; Q0163

== ENCOUNTER 2019-10-11 07:04 | Inpatient (IN) | payer BC ==
[2019-10-11] MEDS ORDERED: Albuterol Sulfate 2.5 mg/0.5 ml Neb ONE (07:40)
[2019-10-11] MEDS ORDERED: Albuterol Sulfate 2.5 mg/3 ml Neb ONE (07:40)
[2019-10-11] MEDS ORDERED: Morphine 4 MG/ML VIAL ONE ×3 (07:45→11:16)
[2019-10-11] MEDS ORDERED: Cefepime 2 GM VIAL ONE ×2 (07:47→07:48)
[2019-10-11] MEDS ORDERED: Magnesium 2 GM/50 ML BAG (IN WATER) ONE (07:47)
[2019-10-11] MEDS ORDERED: Azithromycin 500 MG VIAL ONE (07:47)
[2019-10-11] MEDS ORDERED: Activated Charcoal/Sorbitol 25 GM/120 ML TUBE ONE (07:48)
[2019-10-11] MEDS ORDERED: cloNIDine 0.1 MG TAB ONE (07:48)
[2019-10-11 07:59] LABS: Actual Bicarbonate (HCO3a) 23.2 mEq/L (22-28); Analyzer IN Cardio ER; Base Excess (BEa) -0.4 mEq/L (-2.0 to +3.0); CO2 Tension 33.9 mmHg (35.0-45.0); Calcium, Ionized 1.17 mmol/L (1.12-1.30); Carboxyhemoglobin (COHb) 0.3 gm% (0.0-3.0); Hemoglobin (Hb) 10.2 g/dL (12.0-16.0); O2 Tension (PaO2) 119.7 mmHg (80.0-100.0); Potassium - ABG Lab 3.85 mmol/L (3.70-5.30); Puncture Site LRA; pH, Arterial 7.45 (7.35-7.45)
[2019-10-11 08:00] LABS: #Basophils 0.1 thou/uL (0.0-0.2); #Eosinphils 1.5 thou/uL (0.0-0.7); #Lymphocytes 2.7 thou/uL (1.20-3.40); #Monocytes 1.1 thou/uL (0.11-0.59); %Basophils 0.6 % (0.0-1.0); %Eosinophils 12.9 % (0.0-10.0); %Lymphocytes 24.1 % (21.0-51.0); %Monocytes 9.3 % (0.0-10.0); Hemoglobin 10.1 g/dL (12.0-16.0); Mean Corpuscular HGB CONC 32.4 g/dL (32.0-36.0); Mean Corpuscular Hemoglobin 28.5 pg (27.0-31.0); Mean Corpuscular Volume 87.9 fL (78.0-98.0); Mean Platelet Volume 7.3 fL (7.4-10.4); Platelet Count 612 thou/uL (130-400); RBC Distribution Width 14.5 % (11.5-14.5); Red Blood Cell (RBC) Count 3.53 mill/uL (4.20-5.40); White Blood Cell (WBC) Count 11.3 thou/uL (4.8-10.8)
[2019-10-11] MEDS ORDERED: methylPREDNISolone Sod Succ/PF 125 MG/2 ML VIAL IVP SCH (08:15)
[2019-10-11] MEDS ORDERED: methylPREDNISolone Sod Succ/PF 125 MG/2 ML VIAL ONE (08:26)
[2019-10-11 08:43] LABS: ALT (SGPT) 13 U/L (8-55); AST (SGOT) 16 U/L (5-34); Albumin 3.1 g/dL (3.5-5.0); Alkaline Phosphatase 71 U/L (40-110); Anion Gap 14 mmol/L (10-20); BUN (Urea Nitrogen) 10 mg/dL (7.0-18.7); Bilirubin, Total Less than 0.2 mg/dL (0.2-1.2); Calc. Creatinine Clearance 0 mL/min (70-130); Calcium 9.1 mg/dL (7.8-10.44); Carbon Dioxide 26 mmol/L (22-29); Chloride 104 mmol/L (98-107); Estimated GFR-MDRD 82; Globulin 3.5 g/dL (2.4-3.5); Glucose 85 mg/dL (70-105); Protein, Total 6.6 g/dL (6.0-8.3); Sodium 140 mmol/L (136-145)
[2019-10-11 09:00] LABS: Bilirubin Negative (Negative); Blood, Urine Negative (Negative); Clarity Clear (Clear); Glucose, Urine (Dipstick) Normal (Negative); Leukocyte Negative Leu/uL (Negative); Nitrite Negative (Negative); Protein, Urine (Dipstick) Negative (Neg-Trace); Urobilinogen Normal mg/dL (Less than 2)
--- NOTE | 2019-10-11 09:33 | CT ---
EXAM: CT pulmonary angiogram with IV contrast and 3-D MIP reconstructions PROVIDED CLINICAL HISTORY: Cough and chest pain COMPARISON: 05/29/2019 FINDINGS: There is no evidence for central or segmental pulmonary embolus. There are patchy areas of groundglass opacity and minimal consolidation involving both upper lobes an d to a lesser degree left lung base. No pleural fluid or pneumothorax apparent. No evidence for thoracic lymph node enlargement. The airway appears patent and of normal caliber. The visualized portions of the upper abdomen demonstrate no acute findings. The osseous structures de monstrate no concerning lytic or blastic lesions. Partially visualized postoperative changes involving the spine. IMPRESSION: 1. No evidence for central or segmental pulmonary embolus. 2. Patchy bilateral upper lobe and left lower lobe parenchymal opacities, which may reflect subsegmen veronica atelectasis or pneumonia.
--- NOTE | 2019-10-11 10:47 | RAD ---
FRONTAL RADIOGRAPH CHEST: 10/11/2019 HISTORY: Cough with bloody sputum. COMPARISON: 09/19/2019 FINDINGS: Cervical spine hardware present. Mild increased linear interstitial density within both lungs, stable . No pneumothorax or pleural fluid. No focal consolidation or alveolar edema. IMPRESSION: Stable frontal chest radiograph. No acute findings. POS: [facility]
[2019-10-11] MEDS ORDERED: Ondansetron ODT 4 MG TAB PO PRN (11:15)
[2019-10-11] MEDS ORDERED: Senokot S 8.6-50 MG TAB PO PRN (11:15)
[2019-10-11] MEDS ORDERED: Acetaminophen 325 MG TAB PO PRN (11:15)
[2019-10-11] MEDS ORDERED: methylPREDNISolone Sod Succ 40 MG VIAL IVP SCH (12:00)
[2019-10-11] MEDS ORDERED: Iopamidol-370 76% 500 ML 1 ML ONE (12:09)
[2019-10-11 12:55] LABS: Troponin I Less than 0.010 ng/mL (< 0.028)
--- NOTE | 2019-10-11 14:05 | HP ---
CONSULTATIONS CALLED: Dr. Turner, Pulmonary/Critical Care. REASON FOR ADMISSION: I've difficult breathing and extensive cough with blood in the sputum." HISTORY OF PRESENT ILLNESS: This is a very pleasant 49-year-old female, who presents to the emergency room at [facility] with complaints of shortness of breath associated with persistent cough with hemoptysis. The patient was initially evaluated in the emergency room showing evidence of hemoptysis with persistent cough with a borderline temperature of 99 degrees Fahrenheit without any associated chills or rigors. The patient subsequently had a CT scan of the chest to rule out any evidence of pulmonary embolism and CT angiogram did not show any evidence of pulmonary embolism, but did show interstitial infiltrates pointing out towards the possibility of pneumonia. The patient in the recent past around September 28 had back surgery done in [place] with lumbar fusion surgery at L2, L3 , L4, and L5. Subsequently, stayed in the hospital postoperative course for around 8 days due to fever, which subsequently resolved with symptomatic management and IV Zosyn. At that point of time, culture evaluation did not show any evidence of an infection, was fairly doing well, was taking oral Vista as well as Flexeril for her back pain. Ambulates very well. Subsequently, since yesterday evening, started to have persistent cough associated with hemoptysis and generalized body aches, also presents to the ER, where she was evaluated and treated as above, was given initial IV antibiotics, nebulizations and some steroids with an initial suspicion of COPD exacerbation. I did see the patient and she saturates 94% without oxygen. She does have some wheezes bilaterally and suspect this probably secondary to pneumonia with [id number] exacerbation of COPD, for which Solu-Medrol has been started. No other complaints such as pain, abdominal pain, fever, rigor, chills, nausea, vomiting, diaphoresis, blurring of vision, tingling, numbness, burning micturition, constipation, claudication, anxiety, depression, hematuria, hematochezia, cough expectoration, syncope, seizures, paroxysmal nocturnal dyspnea, or orthopnea has been noted. Through, she does have paroxysmal coughs and emergency room physician, Dr. Jamie Carrion. PAST MEDICAL HISTORY: 1. COPD. 2. History coronary vasospasms. 3. History of lumbar radiculopathy. 4. History of cervical spinal stenosis. 5. Anxiety and depression. 6. Tobacco use. PAST SURGICAL HISTORY: 1. History of appendectomy. 2. Hysterectomy. 3. History of cardiac cath. 4. Ulnar nerve transposition of bilateral upper extremities. 5. Cervical fusion surgery at C5 through C7. 6. Lumbar fusion surgery on September [address] [facility]. 7. History of tonsillectomy. 8. History of bladder suspension surgery. ALLERGIES: THE PATIENT IS ALLERGIC TO ZIPRASIDONE, PENICILLIN, DOXYCYCLINE, HALDOL, KETAMINE, AND TORADOL. FAMILY HISTORY: No history of coronary artery disease or hypertension. SOCIAL HISTORY: The patient is . Lives with her . Smokes a pack of cigarettes a day, which she said she has decreased 2 to 3 cigarettes daily and since 3 weeks has been smoke-free. No history of alcohol or recreational drug abuse noted. MEDICATIONS: At home, 1. Ventolin 3 mL q.4 p.r.n. 2. Brovana 15 mcg b.i.d. 3. Estradiol 2 mg daily. 4. Vista 10/325 mg t.i.d. p.r.n. 5. DuoNeb 3 mL q.4 p.r.n. 6. Melatonin 3 mg nightly. 7. Singulair 10 mg daily. 8. NicoDerm patch 21 mg daily. 9. Nitroglycerin 0.3 mg sublingual every 5 minutes for chest pain p.r.n. 10. Mirapex 2 mg nightly. 11. Trazodone 50 mg nightly. 12. Coreg 6.25 mg b.i.d. 13. Asmanex one puff inhaled b.i.d. REVIEW OF SYSTEMS: Except as documented, all systems reviewed and negative. PHYSICAL EXAMINATION: GENERAL: This is a 49-year-old female, lying in her hospital bed, not on oxygen, not in acute distress, except for complaints of cough. VITAL SIGNS: Blood pressure of 103/68 mmHg, heart rate of 100 per minute, respiratory rate of 16 per minute, saturation of 94% on room air, has an airway, which is clear. HEENT: Atraumatic and normocephalic. NECK: Supple. No bruits. No lymphadenopathy. CARDIOVASCULAR: S1 and S2. Borderline sinus tachycardia noted. CHEST: Bilateral air entry present. Bilateral rhonchi noted. ABDOMEN: Soft and nontender. Bowel sounds are present. No organomegaly. EXTREMITIES: No cyanosis. Nonicteric. No pallor. NEUROLOGIC: The patient is alert and oriented x3. No focal motor or sensory deficits noted. HEME: No ecchymosis or petechiae. PSYCH: No depression or anxiety. DIAGNOSTIC STUDIES: WBCs 11.3, hemoglobin 10.1, hematocrit 31.0, and platelets are 612. D-dimer is 2.16. Sodium 140, potassium 4.0, chloride 104, carbon dioxide 26, BUN 10, and creatinine 0.75. Lactic acid is 1.5, normal. AST 16, ALT 13. Troponin 0.023. Globulin 3.5. CT angiogram has been reviewed, evidence of interstitial pneumonia noted. ABG; pH is 7.45, pCO2 is 33.9, pO2 is 119.7. Urinalysis negative. ASSESSMENT: 1. Health-associated pneumonia, present on admission. The patient currently has been started on IV Maxipime. We will follow blood culture sensitivity evaluation at this point of time and no evidence of sepsis is noted clearly. 2. Acute bronchitis with hemoptysis. Dr. Turner, Pulmonary/Critical Care has been consulted from the emergency room. We will continue and start the patient on IV steroids along with nebulizations and we will follow official consultation evaluation. 3. Chronic obstructive pulmonary disease, mild exacerbation. IV Solu-Medrol is continued with nebulizations. 4. Chronic back pain with history of multiple cervical and lumbar surgeries with recent fusion at [facility]. The patient currently on Vista as well as Flexeril. 5. Coronary artery disease with history of coronary vasospasms, symptomatic treatment as advised. 6. History of tobacco abuse. Quit since 3 weeks completely. Takes nicotine patches. The patient is very determined to stop smoking. 7. Mild physical debility, but the patient does walk on her own with her aside. I did review that in the emergency room, will not need physical therapy and occupational therapy. PLAN: Discussed in detail about the diagnostic treatment and followup with the patient. Advised the patient about possibility of more than 2 midnights stay in the hospital for further evaluation. Treatment with steroids, nebulizations has been activated. The patient has been encouraged to ambulate as tolerated. She will not need any chemical prophylaxis. We will continue home medications and IV antibiotic therapy at this point of time. Follow blood cultures and follow official consultation evaluation by Pulmonary Services. I will closely monitor for any other episodes if hemoptysis as the patient did say that she had fresh blood. Discharge planning will depend on further hospital course. ADVANCED DIRECTIVES: Full code. Job ID: [id number] MTDD
[2019-10-11 14:18] LABS: Troponin I Less than 0.010 ng/mL (< 0.028)
[2019-10-11] MEDS: HYDROcodone/Acetaminophen 10/325 mg Tablet PO PRN ×2 (18:30→22:18)
[2019-10-11] MEDS ORDERED: Bacteriostatic Water 30 ML VIAL FS PRN (20:26)
[2019-10-11] MEDS: Famotidine 20 MG TAB PO SCH (20:35)
[2019-10-11] MEDS: guaiFENesin ER 600 MG TAB PO SCH (20:39)
[2019-10-11] MEDS: Cefepime 1 GM in Sodium Chloride 0.9% 100 ML IVPB SCH (20:40)
--- NOTE | 2019-10-11 21:11 | CON ---
DATE OF CONSULTATION: HISTORY OF PRESENT ILLNESS: Ms. Rodriguez is a 49-year-old female. She was recently in the hospital with a chronic obstructive pulmonary disease exacerbation. She had a lumbar spine fixation procedure done last week at [facility]. She says she was having fever while she was there. She said they did Dopplers to make sure she did not have blood clots and the chest x-ray and did not find anything, so they discharged her home. She said she has had a cough and increasing shortness of breath since surgery. She is trying to remain active, but says she wakes up every morning with terrible pain. She has also had some hemoptysis. She subsequently had a CT scan of her chest today, which showed interstitial infiltrates. She subsequently was admitted. PAST MEDICAL HISTORY: Remarkable for coronary artery disease, lumbar radiculopathy, cervical spinal stenosis, anxiety, depression, and tobacco use. Says she has not smoked since her surgery. She has a history of an appendectomy, hysterectomy, ulnar nerve translocation in both arms, cervical spinal surgery C5 through C7 and then her lumbar spine surgery done approximately two weeks ago. She has also had a bladder suspension. ALLERGIES: SHE HAS AN ALLERGY TO PENICILLIN, DOXYCYCLINE, HALDOL, KETAMINE, TORADOL, AND ZIPRASIDONE. FAMILY HISTORY: Negative for lung disease in early age. SOCIAL HISTORY: She tells me she has not smoked since her surgery. She does not drink. She does not use drugs. MEDICATIONS: Prior to admission medications have been reviewed. REVIEW OF SYSTEMS: Otherwise negative. Her only complaint is cough, purulent sputum, and shortness of breath with exertion. PHYSICAL EXAMINATION: GENERAL: She is in no distress. She was sitting on the side of the bed in her street clothes. VITAL SIGNS: She is afebrile. Heart rate is 110, respiratory rate is 18, and oximetry is 97% on room air. HEAD AND NECK: Unremarkable. LUNGS: Clear with an end-expiratory wheezes bilaterally. HEART: With the exception of end-expiratory wheezes bilaterally. HEART: Regular rhythm. S1 and S2 are normal. No S3. ABDOMEN: Soft and nontender. EXTREMITIES: Without clubbing, cyanosis, or edema. LABORATORY DATA: CT pulmonary angiogram done in the Emergency Department shows no evidence of thromboembolic disease. Upper lobe patchy infiltrates are seen and the left lower lobe infiltrates seen, it could be consistent with atelectasis. IMPRESSION: 1. Postoperative pneumonia. 2. Underlying chronic obstructive pulmonary disease with exacerbation. 3. Recent lumbar spine surgery. PLAN: Antibiotics, steroids, and nebulizer treatments. Serial exams. We will be happy to follow. TIME SPENT: This is a 50-minute consult, 50% of the time spent on the unit coordinating care. Job ID: [id number]
[2019-10-11] MEDS: Cyclobenzaprine 10 MG TAB PO PRN (21:40)
[2019-10-11] MEDS ORDERED: Melatonin 3 MG TAB PO SCH (22:15)
[2019-10-11] MEDS ORDERED: Pramipexole Di-HCl 1 MG TAB PO SCH (22:30)
[2019-10-11] MEDS ORDERED: Nicotine 21 MG PATCH TD SCH (22:30)
[2019-10-11] MEDS ORDERED: Carvedilol 6.25 MG TAB PO SCH (23:59)
[2019-10-12] MEDS: methylPREDNISolone Sod Succ 40 MG VIAL IVP SCH ×3 (00:03→11:53)
[2019-10-12] MEDS: HYDROcodone/Acetaminophen 10/325 mg Tablet PO PRN ×5 (02:58→23:53)
[2019-10-12 06:42] LABS: Hemoglobin 9.4 g/dL (12.0-16.0); Mean Corpuscular Volume 87.7 fL (78.0-98.0); Mean Platelet Volume 7.5 fL (7.4-10.4); Platelet Count 652 thou/uL (130-400); RBC Distribution Width 14.6 % (11.5-14.5); Red Blood Cell (RBC) Count 3.34 mill/uL (4.20-5.40); White Blood Cell (WBC) Count 18.1 thou/uL (4.8-10.8)
[2019-10-12] MEDS: Cyclobenzaprine 10 MG TAB PO PRN ×3 (06:50→23:53)
[2019-10-12 07:05] LABS: ALT (SGPT) 14 U/L (8-55); AST (SGOT) 15 U/L (5-34); Albumin 3.1 g/dL (3.5-5.0); Alkaline Phosphatase 71 U/L (40-110); Anion Gap 16 mmol/L (10-20); BUN (Urea Nitrogen) 14 mg/dL (7.0-18.7); Bilirubin, Total Less than 0.2 mg/dL (0.2-1.2); Calc. Creatinine Clearance 0 mL/min (70-130); Calcium 9.1 mg/dL (7.8-10.44); Carbon Dioxide 20 mmol/L (22-29); Chloride 107 mmol/L (98-107); Estimated GFR-MDRD Greater than 90; Globulin 3.5 g/dL (2.4-3.5); Glucose 114 mg/dL (70-105); Potassium 4.6 mmol/L (3.5-5.1); Protein, Total 6.6 g/dL (6.0-8.3); Sodium 138 mmol/L (136-145)
[2019-10-12 07:33] LABS: Band 5 % (5-11); Lymphocytes 10 % (21-51); MDiff Complete? YES; Monocytes 1 % (0-10); Neutrophil 84 % (42-75); Platelet Morphology Comment Appears Increased; Polychromasia SLIGHT = 2-3 cells (100X) (0-2/hpf)
[2019-10-12] MEDS: Carvedilol 6.25 MG TAB PO SCH ×2 (08:57→17:51)
[2019-10-12] MEDS: Famotidine 20 MG TAB PO SCH ×2 (08:57→20:52)
[2019-10-12] MEDS: guaiFENesin ER 600 MG TAB PO SCH ×2 (08:57→20:51)
[2019-10-12] MEDS: Enoxaparin Sodium 40 MG/0.4 ML SYRINGE SC SCH (08:58)
[2019-10-12] MEDS: Cefepime 1 GM in Sodium Chloride 0.9% 100 ML IVPB SCH ×2 (08:58→20:52)
[2019-10-12] MEDS ORDERED: Nicotine 21 MG PATCH TD SCH ×2 (09:00→21:00)
--- NOTE | 2019-10-12 10:21 | PRG ---
DATE OF SERVICE: 10/12/2019 SUBJECTIVE: This morning, she is better, less short of breath, less cough, and less wheezing. She wants to go home. OBJECTIVE: VITAL SIGNS: Temperature 98, blood pressure 136/76, saturations 96%, and respiratory rate 18. CHEST: Bilateral wheezing. CARDIAC: Normal S1 and S2. No gallops. ABDOMEN: Soft. Massive. ASSESSMENT AND PLAN: Chronic obstructive pulmonary disease exacerbation and bronchitis. Pulmonary standpoint of view, she would like to go home. I guess she can be switched over to oral antibiotics and prednisone. Follow up with several doctors that she has to see. She is status post lumbar surgery. Job ID: [id number]
--- NOTE | 2019-10-12 14:24 | PDOC.HOSPP ---
- Subjective Encounter Date: 10/12/19 Subjective: sob has resolved along with hemoptysis - Objective Vital Signs & Weight: Vital Signs (12 hours) Temp Pulse Resp BP BP Pulse Ox 10/12/19 11:56 98.4 F 83 18 122/74 95 10/12/19 09:00 97 10/12/19 08:57 136/76 10/12/19 08:53 98.4 F 93 16 136/76 97 10/12/19 04:15 97.7 F 85 16 122/75 95 I&O: 10/11/19 10/12/19 10/13/19 06:59 06:59 06:59 Intake Total 2500 960 Balance 2500 960 Result Diagrams: 10/12/19 05:58 10/12/19 05:58 Hospitalist ROS - Review of Systems Respiratory: reports: cough Other: c/o lower extremity edema - Medication Medications: Active Medications Generic Name Dose Route Start Last Admin Trade Name Freq PRN Reason Stop Dose Admin Hydrocodone Bitart/Acetaminophen 1 tab 10/11/19 11:53 10/12/19 10:25 [place] 10/325 PO 1 tab Q4H PRN Administration Pain 4-6 Albuterol/Ipratropium 3 ml 10/11/19 15:00 10/12/19 11:17 Duoneb NEB Not Given [id number] [place] Carvedilol 6.25 mg 10/12/19 08:00 10/12/19 08:57 Coreg PO 6.25 mg BID-WM GEORGAI Administration Cyclobenzaprine HCl 10 mg 10/11/19 11:55 10/12/19 06:50 Flexeril PO 10 mg TID PRN Administration Muscle Spasm Enoxaparin Sodium 40 mg 10/12/19 09:00 10/12/19 08:58 Lovenox SC Not Given 0900 [place] Famotidine 20 mg 10/11/19 21:00 10/12/19 08:57 Pepcid PO 20 mg BID [place] Administration Guaifenesin 600 mg 10/11/19 21:00 10/12/19 08:57 Mucinex PO 600 mg Q12HR [place] Administration Cefepime HCl 1 gm/ Sodium 100 mls @ 200 mls/hr 10/11/19 21:00 10/12/19 08:58 Chloride IVPB 100 mls Q12HR [place] Administration - Exam Eye: PERRL, anicteric sclera ENT: normocephalic atraumatic, no oropharyngeal lesions, moist mucosa Neck: supple, symmetric, no JVD, no thyromegaly, no lymphadenopathy, no carotid bruit Heart: RRR, no murmur, no gallops, no rubs, normal peripheral pulses Respiratory: CTAB, no wheezes, no rales, no ronchi, normal chest expansion, no tachypnea, normal percussion Gastrointestinal: soft, non-tender, non-distended, normal bowel sounds, no palpable masses, no hepatomegaly, no splenomegaly, no bruit Extremities: 2+ LE edema Skin: no rashes Neurological: normal sensation to touch, no focal deficits, no new deficit Musculoskeletal: no muscle wasting Psychiatric: normal behavior, A&O x 3, oriented to time Hosp A/P (1) HAP (hospital-acquired pneumonia) Code(s): J18.9 - PNEUMONIA, UNSPECIFIED ORGANISM; Y95 - NOSOCOMIAL CONDITION Status: Acute Plan: On iv maxipime (2) Herniated lumbar intervertebral disc Code(s): M51.26 - OTHER INTERVERTEBRAL DISC DISPLACEMENT, LUMBAR REGION Status : Acute Plan: s/p recent lumbar fusion surgeries (3) Anxiety and depression Code(s): F41.9 - ANXIETY DISORDER, UNSPECIFIED; F32.9 - MAJOR DEPRESSIVE DISORDER, SINGLE EPISODE, UNSPECIFIED Status: Chronic (4) Back pain Code(s): M54.9 - DORSALGIA, UNSPECIFIED Status: Chronic Qualifiers: Back pain location: low back pain Chronicity: chronic Back pain laterality: midline Sciatica presence: with sciatica Sciatica laterality: sciatica of right side Qualified Code(s): M54.41 - Lumbago with sciatica, right side; G89.29 - Other chronic pain (5) COPD (chronic obstructive pulmonary disease) Status: Chronic Qualifiers: COPD type: unspecified COPD Qualified Code(s): J44.9 - Chronic obstructive pulmonary disease, unspecified Plan: No acuity at this time (6) Fibromyalgia Status: Chronic (7) LUISA (obstructive sleep apnea) Code(s): G47.33 - OBSTRUCTIVE SLEEP APNEA (ADULT) (PEDIATRIC) Status: Chronic (8) Tobacco dependence Code(s): F17.200 - NICOTINE DEPENDENCE, UNSPECIFIED, UNCOMPLICATED Status: Chronic Plan: stopped smoking 3 weeks ago (9) Coronary artery spasm Code(s): I20.1 - ANGINA PECTORIS WITH DOCUMENTED SPASM Status: Resolved - Plan old records reviewed/req, plan discussed w/ family, continue antibiotics, respiratory therapy, incentive spirometry 1.Will stop steroids and continue antibiotics. 2.Will give lasix. 3.Discharge plan in am.
[2019-10-12] MEDS ORDERED: traZODone HCl 50 MG TAB PO PRN (14:43)
[2019-10-12 15:19] VITALS: BMI 28.1
[2019-10-12] MEDS: ALPRAZolam 0.25 MG TAB PO SCH (19:15)
[2019-10-12] MEDS ORDERED: Pramipexole Di-HCl 1 MG TAB PO SCH (21:00)
[2019-10-12] MEDS ORDERED: Melatonin 3 MG TAB PO SCH (21:00)
[2019-10-12] MEDS ORDERED: Lorazepam 1 MG TAB PO SCH (22:45)
[2019-10-13] MEDS: HYDROcodone/Acetaminophen 10/325 mg Tablet PO PRN ×2 (04:53→10:13)
[2019-10-13 05:18] LABS: #Basophils 0.1 thou/uL (0.0-0.2); #Eosinphils 0.1 thou/uL (0.0-0.7); #Lymphocytes 3.8 thou/uL (1.20-3.40); #Monocytes 1.3 thou/uL (0.11-0.59); #Neutrophils 11.5 thou/uL (1.40-6.50); %Basophils 0.6 % (0.0-1.0); %Eosinophils 0.8 % (0.0-10.0); %Lymphocytes 22.4 % (21.0-51.0); %Neutrophils 68.4 % (42.0-75.0); Hemoglobin 8.5 g/dL (12.0-16.0); Mean Corpuscular HGB CONC 31.9 g/dL (32.0-36.0); Mean Corpuscular Volume 87.5 fL (78.0-98.0); Mean Platelet Volume 7.2 fL (7.4-10.4); Platelet Count 618 thou/uL (130-400); RBC Distribution Width 14.8 % (11.5-14.5); Red Blood Cell (RBC) Count 3.03 mill/uL (4.20-5.40); White Blood Cell (WBC) Count 16.8 thou/uL (4.8-10.8)
[2019-10-13 05:34] LABS: ALT (SGPT) 18 U/L (8-55); AST (SGOT) 19 U/L (5-34); Albumin 2.8 g/dL (3.5-5.0); Alkaline Phosphatase 65 U/L (40-110); Anion Gap 11 mmol/L (10-20); BUN (Urea Nitrogen) 19 mg/dL (7.0-18.7); Bilirubin, Total Less than 0.2 mg/dL (0.2-1.2); Calc. Creatinine Clearance 128 mL/min (70-130); Calcium 8.8 mg/dL (7.8-10.44); Carbon Dioxide 26 mmol/L (22-29); Chloride 107 mmol/L (98-107); Estimated GFR-MDRD Greater than 90; Globulin 3.1 g/dL (2.4-3.5); Glucose 93 mg/dL (70-105); Potassium 3.7 mmol/L (3.5-5.1); Protein, Total 5.9 g/dL (6.0-8.3); Sodium 140 mmol/L (136-145)
[2019-10-13 07:25] VITALS: TEMP 98.4
[2019-10-13] MEDS: guaiFENesin ER 600 MG TAB PO SCH (09:00)
[2019-10-13] MEDS: ALPRAZolam 0.25 MG TAB PO SCH (09:00)
[2019-10-13] MEDS: Enoxaparin Sodium 40 MG/0.4 ML SYRINGE SC SCH (09:00)
[2019-10-13] MEDS: Cefepime 1 GM in Sodium Chloride 0.9% 100 ML IVPB SCH (09:00)
[2019-10-13] MEDS: Famotidine 20 MG TAB PO SCH (09:00)
[2019-10-13] MEDS: Carvedilol 6.25 MG TAB PO SCH (09:00)
[2019-10-13] MEDS ORDERED: Furosemide 40 MG TAB PO SCH (09:00)
[2019-10-13 09:01] VITALS: BP 136/76
--- NOTE | 2019-10-13 09:29 | PRG ---
DATE OF SERVICE: 10/13/2019 SUBJECTIVE: This morning, she is better, less cough and less shortness of breath, still somewhat wheezing. OBJECTIVE: GENERAL: She is in mild distress. All cultures are negative. CHEST: Decreased breath sounds. Minimal wheezing. CARDIAC: Normal S1, S2. No gallops. ABDOMEN: No masses. VITAL SIGNS: Temperature 98, pulse 77, blood pressure 136/75, saturations are 96% on room air. ASSESSMENT AND PLAN: Chronic obstructive pulmonary disease exacerbation, bronchitis, recent back surgery. Pulmonary standpoint of view, switch over to oral medication. She can be discharged home at anytime. Follow up in the office. Job ID: [id number]
--- NOTE | 2019-10-13 12:20 | DIS ---
DATE OF ADMISSION: 10/11/2019 DATE OF DISCHARGE: 10/13/2019 DISCHARGING PHYSICIAN: Dr. Hernan Herrera. CONSULTATIONS ON THE CASE: Dr. Jamie Lincoln, Pulmonary Critical Care. ADMISSION DIAGNOSES: 1. Healthcare-associated pneumonia present on admission. 2. Acute bronchitis with hemoptysis. 3. Chronic obstructive pulmonary disease. 4. Coronary artery disease with history of coronary vasospasms. 5. History of tobacco abuse. 6. Mild physical debility. 7. Recent history of fusion surgeries in the spine, currently on pain medications as well as muscle relaxants. DISCHARGE DIAGNOSES: 1. Healthcare-associated pneumonia. The patient was discharged with oral Augmentin. 2. Herniated lumbar intervertebral disk, status post fusion surgery. 3. Anxiety and depression. 4. Chronic back pain. 5. Chronic obstructive pulmonary disease. 6. Fibromyalgia. 7. Obstructive sleep apnea. 8. Tobacco dependence. 9. Coronary artery vasospasms, chronic in nature. HOSPITAL COURSE: This is a 49-year-old female, who was admitted to the Hospitalist Services for pneumonia present on admission, was treated with IV Maxipime. As in the recent past, the patient had multiple hospitalizations for back pains and subsequently had spinal fusion surgeries done in [place]. Subsequently, post discharge, the patient presents to the emergency room at [facility] with complaints of shortness of breath associated with cough. Eventual evaluation showed evidence of COPD exacerbation, though mild with evidence of pulmonary infiltrates, which was treated with Maxipime and also IV steroids for the patient's mild exacerbation of COPD, which eventually resolved completely. Steroids were discontinued. The patient did have some leukocytosis, which was secondary to steroid use, was advised about oral antibiotic therapy as the patient remained afebrile for more than 48 hours and was comfortably able to walk around with her walker. At this point of time, the patient was advised to follow up with her neurosurgeon as scheduled in [place] along with pain management physician and also was given follow up care with Dr. Jamie Lincoln, Pulmonary Critical Care as an outpatient in [facility]. The patient was hemodynamically optimized and discharged. All questions and concerns were addressed. DISPOSITION: Discharged home. PHYSICAL EXAMINATION: CVS: S1, S2. CHEST: Bilateral air entry present. ABDOMEN: Soft. EXTREMITIES: No cyanosis. ALLERGIES: ZIPRASIDONE, PENICILLIN, DOXYCYCLINE, HALOPERIDOL, AND KETAMINE. ACTIVITY: As tolerated with fall precautions. DIET: Heart healthy diet. ACTIVITY: As tolerated with fall precautions. DISCHARGE MEDICATIONS: 1. Augmentin 875 mg twice a day for 7 days. 2. Arformoterol 15 mcg nebulizations b.i.d. 3. Coreg 6.25 mg b.i.d. 4. Flexeril 10 mg q.i.d. 5. Estradiol 2 mg daily. 6. Pepcid 20 mg b.i.d. 7. Bozrah 10/325 t.i.d. p.r.n. 8. Melatonin 3 mg daily. 9. Mometasone 200 mcg b.i.d. 10. Montelukast sodium 10 mg daily. 11. Nicotine patches as needed for support. 12. Pramipexole 0.5 mg daily. 13. Trazodone 50 mg at bedtime for sleep. DISCHARGE PLAN: The patient has been advised and educated about the diagnosis, treatment, and followup. The patient has been advised about followup care with her primary care physician along with followup care with a primary neurosurgeon along with Pulmonary Critical Care. The whole discharge process including discharge coordination took me more than 35 minutes. Job ID: [id number] MTDD
[2019-10-13] MEDS ORDERED: Amoxicillin/Potassium Clav 875 MG TAB PO SCH (21:00)
[2019-10-13] MEDS ORDERED: Cefdinir 300 MG CAP PO SCH (21:00)
--- NOTE | 2019-10-14 02:41 | PQF ---
JAVIER NATARAJAN VIKRAM [id number] SURG [id number] CLINICAL DOCUMENTATION CLARIFICATION FORM: POST DISCHARGE Addendum to original discharge summary date: ____ Late entry note date: __ DATE: 10/14/19 ATTN: Hernan Story Please exercise your independent, professional judgment in responding to the clarification form. Clinical indicators are provided on the bottom of this form for your review Can you please further clarify if Pneumonia is a complication of recent surgery of not? Please check appropriate box(s): [ ] Pneumonia is a complication of recent surgery [ ] Pneumonia is not a complication of recent surgery [ ] Other diagnosis please specify [ ] Unable to determine In addition, please specify: Present on Admission (POA): [ ] Yes [ ] No [ ] Unable to determine CLINICAL INDICATORS - SIGNS / SYMPTOMS / LABS H and P pg.1 - complaints of shortness of breath associated with persistent cough with hemoptysis H and P pg.1- the patient in the recent past around September 28 has back surgery H and P pg.3- Health associated pneumonia Consult Dr. Turner pg.1- she said she had a cough and increasing shortness of breath since surgery Consult Dr. Turner pg.2- Postoperative pneumonia RISK FACTORS COPD-H and P pg.1 History of Vasospasm- H and P pg.1 Lumbar fusion surge Sep 28- H and P pg.2 Tobacco use- H and P pg.2 s/p fusion surgery- DS pg.1 TREATMENT: IV Maxipime- H and P pg.3 Pulmonary Consult- Johnny Tee 10/09 Chest X ray 10/11 Chest Thorax CTA 10/11 IV fluids- MAR (This form is maintained as a part of the permanent medical record) 2014 [employer]. All Rights Reserved Leo [email or web address] [not provided] ASHLEY
== END 2019-10-13 10:45 | disposition home or self-care (01) | DRG 190 ==
LOC: ERS 07:04 → SURG A 12:21
PROVIDERS: ADMIT Student in an Organized Health Care Education/Training Program; ATTEND Student in an Organized Health Care Education/Training Program
DX: J44.1 Chronic obstructive pulmonary disease with (acute) exacerbation (principal); J18.9 Pneumonia, unspecified organism; R04.2 Hemoptysis; J20.9 Acute bronchitis, unspecified; J44.0 Chronic obstructive pulmonary disease with (acute) lower respiratory infection; M54.16 Radiculopathy, lumbar region; M48.02 Spinal stenosis, cervical region; F41.9 Anxiety disorder, unspecified; F32.9 Major depressive disorder, single episode, unspecified; F17.210 Nicotine dependence, cigarettes, uncomplicated; M51.26 Other intervertebral disc displacement, lumbar region; M79.7 Fibromyalgia; G47.33 Obstructive sleep apnea (adult) (pediatric); G89.29 Other chronic pain; D72.829 Elevated white blood cell count, unspecified; T38.0X5A Adverse effect of glucocorticoids and synthetic analogues, initial encounter; Y95 Nosocomial condition; I25.10 Atherosclerotic heart disease of native coronary artery without angina pectoris; Z90.710 Acquired absence of both cervix and uterus; Z90.49 Acquired absence of other specified parts of digestive tract; Z98.1 Arthrodesis status; Z88.0 Allergy status to penicillin; Z88.1 Allergy status to other antibiotic agents; Z88.8 Allergy status to other drugs, medicaments and biological substances; Z79.51 Long term (current) use of inhaled steroids; Z79.899 Other long term (current) drug therapy; I25.2 Old myocardial infarction; Z79.52 Long term (current) use of systemic steroids; E11.9 Type 2 diabetes mellitus without complications
CPT/HCPCS: 36415; 71045; 71275; 80053; 81003; 82805; 83605; 83880; 84484; 85025; 85379; 87040; 87086; 87804; 93005; 94640; 94644; 96365; 96366; 96367; 96375; 96376; J0456; J0692; J2270; J2920; J2930; J3475; J3490; J7611; J7620; Q9967

== ENCOUNTER 2019-10-23 22:57 | Emergency (ER) | payer BC ==
[2019-10-23] MEDS ORDERED: Albuterol Sulfate 2.5 mg/3 ml Neb ONE (23:06)
--- NOTE | 2019-10-23 23:22 | RAD ---
Chest one view HISTORY: Dyspnea. COPD. COMPARISON: 10/11/2019. FINDINGS: Cardiac silhouette is magnified by projection. Pulmonary vasculature is unremarkable. Media stinum is midline. No lobar consolidation or evidence of pneumothorax. telemetry monitor leads overlie the chest. IMPRESSION: No active cardiopulmonary abnormalities are demonstrated.
[2019-10-23 23:31] LABS: #Basophils 0.1 thou/uL (0.0-0.2); #Eosinphils 1.4 thou/uL (0.0-0.7); #Lymphocytes 1.9 thou/uL (1.20-3.40); #Monocytes 1.4 thou/uL (0.11-0.59); #Neutrophils 6.3 thou/uL (1.40-6.50); %Basophils 0.8 % (0.0-1.0); %Eosinophils 12.5 % (0.0-10.0); %Monocytes 12.6 % (0.0-10.0); %Neutrophils 57.1 % (42.0-75.0); Hemoglobin 11.4 g/dL (12.0-16.0); Mean Corpuscular HGB CONC 33.4 g/dL (32.0-36.0); Mean Corpuscular Hemoglobin 28.3 pg (27.0-31.0); Mean Corpuscular Volume 84.7 fL (78.0-98.0); Mean Platelet Volume 7.1 fL (7.4-10.4); Platelet Count 332 thou/uL (130-400); Red Blood Cell (RBC) Count 4.04 mill/uL (4.20-5.40); White Blood Cell (WBC) Count 10.9 thou/uL (4.8-10.8)
[2019-10-23 23:57] LABS: Anion Gap 15 mmol/L (10-20); BUN (Urea Nitrogen) 10 mg/dL (7.0-18.7); Calc. Creatinine Clearance 0 mL/min (70-130); Carbon Dioxide 22 mmol/L (22-29); Chloride 104 mmol/L (98-107); Estimated GFR-MDRD 74; Potassium 4.3 mmol/L (3.5-5.1); Sodium 137 mmol/L (136-145)
[2019-10-23 23:58] LABS: ALT (SGPT) 15 U/L (8-55); AST (SGOT) 15 U/L (5-34); Albumin 3.8 g/dL (3.5-5.0); Alkaline Phosphatase 86 U/L (40-110); Bilirubin, Total 0.4 mg/dL (0.2-1.2); Calcium 9.1 mg/dL (7.8-10.44); Globulin 3.2 g/dL (2.4-3.5); Glucose 97 mg/dL (70-105)
== END 2019-10-24 01:40 | disposition home or self-care (01) ==
LOC: ERS 22:57
DX: J44.1 Chronic obstructive pulmonary disease with (acute) exacerbation (principal); I25.2 Old myocardial infarction; I25.10 Atherosclerotic heart disease of native coronary artery without angina pectoris; E11.649 Type 2 diabetes mellitus with hypoglycemia without coma; F41.9 Anxiety disorder, unspecified; Z87.891 Personal history of nicotine dependence; Z79.891 Long term (current) use of opiate analgesic; Z79.899 Other long term (current) drug therapy
CPT/HCPCS: 36415; 71045; 80053; 84484; 85025; 93005; 94644; J7611; J7620

== ENCOUNTER 2020-03-03 22:54 | Inpatient (IN) | payer BC, MEDICARE, OTHER ==
[2020-03-03] MEDS ORDERED: Acetaminophen 500 MG TAB ONE (23:14)
--- NOTE | 2020-03-03 23:37 | RAD ---
Chest one view HISTORY: Fever. Dyspnea. COMPARISON: 12/26/2019. FINDINGS: Cardiac silhouette and pulmonary vasculature are unremarkable. Mediastinum is midline. No c onfluent airspace consolidation or evidence of pneumothorax. monitor worker leads overlie the chest. IMPRESSION : No active cardiopulmonary abnormalities are demonstrated.
[2020-03-03 23:51] LABS: #Basophils 0.1 thou/uL (0.0-0.2); #Eosinphils 0.4 thou/uL (0.0-0.7); #Lymphocytes 3.9 thou/uL (1.20-3.40); #Monocytes 1.7 thou/uL (0.11-0.59); #Neutrophils 9.3 thou/uL (1.40-6.50); %Basophils 0.7 % (0.0-1.0); %Eosinophils 2.7 % (0.0-10.0); %Monocytes 11.1 % (0.0-10.0); %Neutrophils 60.6 % (42.0-75.0); Hemoglobin 12.3 g/dL (12.0-16.0); Mean Corpuscular HGB CONC 31.5 g/dL (32.0-36.0); Mean Corpuscular Volume 82.8 fL (78.0-98.0); Mean Platelet Volume 8.1 fL (7.4-10.4); Platelet Count 286 thou/uL (130-400); RBC Distribution Width 15.5 % (11.5-14.5); Red Blood Cell (RBC) Count 4.73 mill/uL (4.20-5.40); White Blood Cell (WBC) Count 15.4 thou/uL (4.8-10.8)
[2020-03-04 00:12] LABS: ALT (SGPT) 14 U/L (8-55); AST (SGOT) 15 U/L (5-34); Alkaline Phosphatase 58 U/L (40-110); Anion Gap 16 mmol/L (10-20); BUN (Urea Nitrogen) 12 mg/dL (7.0-18.7); Bilirubin, Total 0.2 mg/dL (0.2-1.2); Calc. Creatinine Clearance 0 mL/min (70-130); Calcium 9.4 mg/dL (7.8-10.44); Carbon Dioxide 22 mmol/L (22-29); Chloride 107 mmol/L (98-107); Estimated GFR-MDRD 83; Globulin 3.2 g/dL (2.4-3.5); Glucose 88 mg/dL (70-105); Potassium 3.9 mmol/L (3.5-5.1); Protein, Total 7.2 g/dL (6.0-8.3); Sodium 141 mmol/L (136-145)
[2020-03-04] MEDS ORDERED: Azithromycin 500 MG VIAL ONE (00:32)
[2020-03-04] MEDS ORDERED: Magnesium 2 GM/50 ML BAG (IN WATER) ONE (00:32)
[2020-03-04] MEDS ORDERED: Hydroxychloroquine Sulfate 200 MG TAB PO SCH (00:45)
[2020-03-04] MEDS ORDERED: Ketorolac Tromethamine 30 MG/ML VIAL ONE (00:56)
[2020-03-04] MEDS ORDERED: Ondansetron PF 4 MG/2 ML Vial ONE (00:59)
[2020-03-04] MEDS ORDERED: Acetaminophen 325 MG TAB PO PRN (01:29)
[2020-03-04] MEDS ORDERED: Acetaminophen 650 MG Suppository PR PRN (01:29)
--- NOTE | 2020-03-04 01:53 | PDOC.HHP ---
Hospitalist HPI - History of Present Illness sob History of Present Illness: patient is limited due to patient severe dypsnea Case of an 49y/o female with pmhx of htn cad hyperlipidemia and copd who comes to hospital due to sob cough and sputum production. patient refers she was on her usual state of health until two day ago when she started with dyspnea incresing cough and yellow sputum production. she states she has been treating herself at home with nebs treatment w/o improvement for which she decided to come to hospital. at the ed she was treated with inhalers and mag but continued to be wheezing for which hospitalist was consulted for further evaluation and management. patient states she does have fever and chills. due to signs concerning for covid 19 patient protocol was started and patient was tested. she refers was tested last week and was negative Hospitalist ROS - Review of Systems All other systems reviewed; all pertinent +/- noted in HPI/Subj Hospitalist History - Past Medical History Cardiac: reports: CAD, HTN, Hyperlipidemia Pulmonary: reports: COPD Heme/Onc: reports: no pertinent history Hepatobiliary: reports: no pertinent history Psych: reports: Anxiety Musculoskeletal: reports: Chronic low back pain Rheumatologic: reports: no pertinent history - Past Surgical History Past Surgical History: reports: Tonsillectomy, Other - Family History Family History: reports: hypertension - Social History Smoking Status: Current every day smoker Alcohol: reports: None Drugs: reports: none - Exam General Appearance: awake alert, ill appearing Eye: PERRL, anicteric sclera ENT: normocephalic atraumatic, no oropharyngeal lesions Neck: supple, symmetric, no JVD, no thyromegaly Heart: RRR, no murmur, no gallops, no rubs Respiratory: tachypneic, wheezes Gastrointestinal: soft, non-tender, non-distended, normal bowel sounds Extremities: no cyanosis, no clubbing, 1+ LE edema Skin: normal turgor, no lesions Neurological: cranial nerve grossly intact, normal sensation to touch Hospitalist Results - Labs Result Diagrams: 03/03/20 23:34 03/03/20 23:34 Lab results: WBC 15.4 thou/uL (4.8-10.8) H 03/03/20 23:34 Hgb 12.3 g/dL (12.0-16.0) 03/03/20 23:34 Hct 39.1 % (36.0-47.0) 03/03/20 23:34 MCV 82.8 fL (78.0-98.0) 03/03/20 23:34 Plt Count 286 thou/uL (130-400) 03/03/20 23:34 Neutrophils % 60.6 % (42.0-75.0) 03/03/20 23:34 Sodium 141 mmol/L (136-145) 03/03/20 23:34 Potassium 3.9 mmol/L (3.5-5.1) 03/03/20 23:34 Chloride 107 mmol/L (98-107) 03/03/20 23:34 Carbon Dioxide 22 mmol/L (22-29) 03/03/20 23:34 BUN 12 mg/dL (7.0-18.7) 03/03/20 23:34 Creatinine 0.74 mg/dL (0.6-1.1) 03/03/20 23:34 Glucose 88 mg/dL (70-105) 03/03/20 23:34 Lactic Acid 1.2 mmol/L (0.5-2.2) 03/03/20 23:34 Calcium 9.4 mg/dL (7.8-10.44) 03/03/20 23:34 Total Bilirubin 0.2 mg/dL (0.2-1.2) 03/03/20 23:34 AST 15 U/L (5-34) 03/03/20 23:34 ALT 14 U/L (8-55) 03/03/20 23:34 Alkaline Phosphatase 58 U/L (40-110) 03/03/20 23:34 Troponin I Less than 0.010 ng/mL (< 0.028) 03/03/20 23:34 B-Natriuretic Peptide 45.0 pg/mL (0-100) 03/03/20 23:34 Serum Total Protein 7.2 g/dL (6.0-8.3) 03/03/20 23:34 Albumin 4.0 g/dL (3.5-5.0) 03/03/20 23:34 - EKG Interpretation EKG: Rate 96. Normal sinus rhythm. Occasional premature ventricular complexes. Possible left atrial enlargement. Impression no acute process occasional premature ventricular complexes normal sinus rhythm. - Radiology Interpretation Chest x-ray Additional Comment: Chest films negative, no infiltrates, no pneumothorax, no hemothorax, no masses , no cardiomegaly, no congestive heart failure, no effusion, no free air. Hospitalist H&P A/P - Problem (1) COPD exacerbation Code(s): J44.1 - CHRONIC OBSTRUCTIVE PULMONARY DISEASE W (ACUTE) EXACERBATION Status: Acute (2) Suspected COVID-19 virus infection Code(s): R68.89 - OTHER GENERAL SYMPTOMS AND SIGNS Status: Acute (3) CAD (coronary artery disease) Code(s): I25.10 - ATHSCL HEART DISEASE OF [place] CORONARY ARTERY W/O ANG PCTRS Status: Acute (4) Hypertension Code(s): I10 - ESSENTIAL (PRIMARY) HYPERTENSION Status: Acute (5) Hyperlipidemia Code(s): E78.5 - HYPERLIPIDEMIA, UNSPECIFIED Status: Acute (6) Tobacco dependence Code(s): F17.200 - NICOTINE DEPENDENCE, UNSPECIFIED, UNCOMPLICATED Status: Chronic - Plan Plan: copd exacerbation - patient with at least monthly copd exacerbation, arrived with dyspnea sputum production and worsening cough, started on azithromycin, 02 supplementation and albuterol inhalier. patient is an covid 19 suscpect, holding nebs and steroids for now. blood and sputum cultures were taken covid 19 r/o - plaquenil was offered by ED. patient refused. has a negative test 1 week ago, was retaken at the ed. isolation was started cad - continued home meds htn - continue home meds adjust as necessary smoker - advised to quit
[2020-03-04 03:20] VITALS: BMI 28.0
[2020-03-04] MEDS ORDERED: PROVENTIL INHALER 6.7 G (200 INHALATIONS) INH PRN (05:00)
[2020-03-04] MEDS ORDERED: PROVENTIL INHALER 6.7 G (200 INHALATIONS) INH SCH (05:00)
[2020-03-04] MEDS ORDERED: Albuterol 200 PUFF (6.7GM INHALER) INH PRN (05:40)
[2020-03-04 07:13] LABS: #Eosinphils 0.7 thou/uL (0.0-0.7); #Lymphocytes 3.3 thou/uL (1.20-3.40); #Monocytes 1.3 thou/uL (0.11-0.59); #Neutrophils 5.2 thou/uL (1.40-6.50); %Basophils 0.4 % (0.0-1.0); %Eosinophils 6.5 % (0.0-10.0); %Lymphocytes 31.4 % (21.0-51.0); %Monocytes 12.3 % (0.0-10.0); %Neutrophils 49.4 % (42.0-75.0); Hemoglobin 10.9 g/dL (12.0-16.0); Mean Corpuscular HGB CONC 31.9 g/dL (32.0-36.0); Mean Corpuscular Hemoglobin 26.2 pg (27.0-31.0); Mean Corpuscular Volume 82.3 fL (78.0-98.0); Mean Platelet Volume 8.3 fL (7.4-10.4); Platelet Count 248 thou/uL (130-400); RBC Distribution Width 15.4 % (11.5-14.5); Red Blood Cell (RBC) Count 4.16 mill/uL (4.20-5.40); White Blood Cell (WBC) Count 10.6 thou/uL (4.8-10.8)
[2020-03-04 07:38] LABS: ALT (SGPT) 11 U/L (8-55); AST (SGOT) 11 U/L (5-34); Albumin 3.3 g/dL (3.5-5.0); Alkaline Phosphatase 49 U/L (40-110); Anion Gap 12 mmol/L (10-20); BUN (Urea Nitrogen) 11 mg/dL (7.0-18.7); Bilirubin, Total 0.4 mg/dL (0.2-1.2); Calc. Creatinine Clearance 115 mL/min (70-130); Calcium 8.3 mg/dL (7.8-10.44); Carbon Dioxide 24 mmol/L (22-29); Chloride 111 mmol/L (98-107); Estimated GFR-MDRD 84; Globulin 2.6 g/dL (2.4-3.5); Glucose 98 mg/dL (70-105); Potassium 3.7 mmol/L (3.5-5.1); Protein, Total 5.9 g/dL (6.0-8.3); Sodium 143 mmol/L (136-145)
[2020-03-04] MEDS: Enoxaparin Sodium 40 MG/0.4 ML SYRINGE SC SCH (07:44)
[2020-03-04] MEDS ORDERED: Carvedilol 6.25 MG TAB PO SCH (08:00)
[2020-03-04] MEDS ORDERED: Prevnar 13-Val Conj/PF 0.5 ML SYRINGE IM ONE (09:00)
[2020-03-04] MEDS ORDERED: Nitroglycerin 0.4 MG TAB (25 Tab Bottle) SL PRN (12:03)
[2020-03-04] MEDS: diphenhydrAMINE 25 MG CAP PO SCH (12:21)
[2020-03-04] MEDS: Methocarbamol 500 MG TAB PO SCH ×2 (12:21→20:58)
[2020-03-04] MEDS: Estradiol 1 MG TAB PO SCH (12:21)
[2020-03-04] MEDS: HYDROcodone/Acetaminophen 10/325 mg Tablet PO PRN ×2 (12:21→20:51)
[2020-03-04] MEDS ORDERED: methylPREDNISolone Sod Succ 40 MG VIAL IVP SCH (13:45)
--- NOTE | 2020-03-04 17:05 | PDOC.EVN ---
Event Note - Event Note Event Note: Patient reports that she feels very congested. She is unable to take a deep breath. He wants to cough but cannot bring it up. Gen: patient alert, awake, oriented times three CV: RRR, no murmurs, rubs, gallops Lungs: bilateral wheezing Abdomen: + Bs, soft, nontender, nondistended Extremities: no edema Chst X ray: no acute abnormalities This is a 49 year old female patient admitted with COPD exacerbation COPD exacerbation - mild fever - will add IV steroids - resp viral panel negative -continue azithromycin - COVID test sent by ER and pending ANemia - Hb 10, continue to monitor Constipation - will add bowel meds
[2020-03-04] MEDS: Melatonin 3 MG TAB PO PRN (20:50)
[2020-03-04] MEDS: Carvedilol 6.25 MG TAB PO SCH (20:51)
[2020-03-04] MEDS: Pramipexole Di-HCl 1 MG TAB PO SCH (20:57)
[2020-03-04] MEDS ORDERED: Melatonin 3 MG TAB PO SCH (21:00)
[2020-03-04] MEDS ORDERED: traZODone HCl 50 MG TAB PO SCH (21:00)
[2020-03-05] MEDS ORDERED: Bacteriostatic Water 30 ML VIAL FS PRN (00:05)
[2020-03-05] MEDS ORDERED: methylPREDNISolone Sod Succ 40 MG VIAL IVP SCH (00:15)
[2020-03-05] MEDS: Azithromycin 500 MG in Sodium Chloride 0.9% 250 ML 250 ML IVPB SCH (00:22)
[2020-03-05] MEDS: HYDROcodone/Acetaminophen 10/325 mg Tablet PO PRN ×4 (00:23→18:03)
[2020-03-05] MEDS: diphenhydrAMINE 25 MG CAP PO SCH ×3 (00:23→20:56)
[2020-03-05] MEDS: methylPREDNISolone Sod Succ 40 MG VIAL IVP SCH ×3 (06:12→17:28)
[2020-03-05] MEDS: Montelukast Sodium 10 mg Tablet PO SCH (08:39)
[2020-03-05] MEDS: Enoxaparin Sodium 40 MG/0.4 ML SYRINGE SC SCH (08:39)
[2020-03-05] MEDS: Carvedilol 6.25 MG TAB PO SCH ×2 (08:39→20:57)
[2020-03-05] MEDS: Estradiol 1 MG TAB PO SCH (08:39)
[2020-03-05] MEDS: Methocarbamol 500 MG TAB PO SCH (08:40)
[2020-03-05] MEDS ORDERED: traZODone HCl 50 MG TAB PO SCH (09:00)
[2020-03-05 09:56] LABS: Hemoglobin 12.5 g/dL (12.0-16.0); Mean Corpuscular HGB CONC 30.5 g/dL (32.0-36.0); Mean Corpuscular Hemoglobin 25.6 pg (27.0-31.0); Mean Corpuscular Volume 83.8 fL (78.0-98.0); Mean Platelet Volume 8.5 fL (7.4-10.4); Platelet Count 258 thou/uL (130-400); RBC Distribution Width 15.4 % (11.5-14.5); Red Blood Cell (RBC) Count 4.88 mill/uL (4.20-5.40); White Blood Cell (WBC) Count 12.2 thou/uL (4.8-10.8)
[2020-03-05 10:33] LABS: Anion Gap 15 mmol/L (10-20); BUN (Urea Nitrogen) 12 mg/dL (7.0-18.7); Calc. Creatinine Clearance 117 mL/min (70-130); Calcium 9.6 mg/dL (7.8-10.44); Carbon Dioxide 23 mmol/L (22-29); Chloride 103 mmol/L (98-107); Estimated GFR-MDRD 86; Glucose 168 mg/dL (70-105); Potassium 4.1 mmol/L (3.5-5.1); Sodium 137 mmol/L (136-145)
--- NOTE | 2020-03-05 16:01 | PDOC.HOSPP ---
- Subjective Subjective: Seen and examined. Patient on droplet precautions for possible Covid 19. Patient states that she had a negative Covid test at [facility] over a week ago. She was found to be flu B positive - per patient. A repeat respiratory panel on this hospitalization was found to be negative including for flu B. her Covid 19 is pending. Patient has been evaluated for home oxygen therapy in the past and states that she could not qualify despite being in the 80s and her [employer] insurance would not pay for it. We will have the patient ambulated on room air and she may require supplemental oxygen to go home with. 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 Patient with numerous other complaints most significantly is back pain, muscle spasms, neck pain and states that these beds are making her worse. - Objective Vital Signs & Weight: Vital Signs (12 hours) Temp Pulse Resp BP Pulse Ox 03/05/20 12:25 97.7 F 75 18 128/75 98 03/05/20 08:40 97.5 F L 73 18 138/66 98 Weight Weight 174 lb 2.643 oz Result Diagrams: 03/05/20 09:27 03/05/20 09:27 Radiology Reviewed by me: Yes Hospitalist ROS - Review of Systems All other systems reviewed; all pertinent +/- noted in HPI/Subj - Medication Medications: Active Medications Generic Name Dose Route Start Last Admin Trade Name Freq PRN Reason Stop Dose Admin Hydrocodone Bitart/Acetaminophen 1 tab 03/04/20 11:36 03/05/20 12:21 Eidson 10/325 PO 1 tab Q6H PRN Administration Pain Albuterol Sulfate 0 puff 03/04/20 05:40 03/04/20 11:10 Proventil Hfa INH 2 puff Q4H PRN Administration SOB &/or Wheezing Carvedilol 6.25 mg 03/04/20 21:00 03/05/20 08:39 Coreg PO 6.25 mg BID [place] Administration Diphenhydramine HCl 25 mg 03/04/20 21:00 03/05/20 08:39 Benadryl PO 25 mg BID [place] Administration Enoxaparin Sodium 40 mg 03/04/20 09:00 03/05/20 08:39 Lovenox SC 40 mg 0900 [place] Administration Estradiol 2 mg 03/05/20 09:00 03/05/20 08:39 Estrace PO 2 mg DAILY [place] Administration Azithromycin 500 mg/ Sodium 250 mls @ 250 mls/hr 03/05/20 01:00 03/05/20 00: 22 Chloride IVPB 250 mls Q24HR [place] Administration Melatonin 10.5 mg 03/04/20 12:01 03/04/20 20:50 Melatonin PO 10.5 mg HS PRN Administration Insomnia Methylprednisolone Sodium Succinate 40 mg 03/05/20 06:00 03/05/20 12:25 Solu-Medrol IVP 40 mg Q6HR [place] Administration Montelukast Sodium 10 mg 03/05/20 09:00 03/05/20 08:39 Singulair PO 10 mg DAILY [place] Administration Pramipexole Dihydrochloride 2 mg 03/04/20 21:00 03/04/20 20:57 Mirapex PO 2 mg QPM [place] Administration - Exam General Appearance: NAD, awake alert Eye: anicteric sclera ENT: normocephalic atraumatic, moist mucosa Neck: supple, symmetric, no lymphadenopathy Heart: no murmur, no gallops, no rubs Respiratory: no rales, normal chest expansion, no tachypnea, rhonchi, wheezes Gastrointestinal: soft, non-tender, no guarding, no rigidity Extremities: 1+ LE edema Skin: no lesions, no rashes Neurological: cranial nerve grossly intact, no focal deficits Musculoskeletal: generalized weakness Psychiatric: A&O x 3 Hosp A/P (1) Acute respiratory failure Code(s): J96.00 - ACUTE RESPIRATORY FAILURE, UNSP W HYPOXIA OR HYPERCAPNIA Status: Acute (2) CAD (coronary artery disease) Code(s): I25.10 - ATHSCL HEART DISEASE OF [place] CORONARY ARTERY W/O ANG PCTRS Status: Acute (3) Hyperlipidemia Code(s): E78.5 - HYPERLIPIDEMIA, UNSPECIFIED Status: Acute (4) Hypertension Code(s): I10 - ESSENTIAL (PRIMARY) HYPERTENSION Status: Acute (5) Suspected COVID-19 virus infection Code(s): R68.89 - OTHER GENERAL SYMPTOMS AND SIGNS Status: Acute (6) Acute and chronic respiratory failure Code(s): J96.20 - ACUTE AND CHR RESP FAILURE, UNSP W HYPOXIA OR HYPERCAPNIA Status: Acute (7) Acute respiratory failure with hypoxia Code(s): J96.01 - ACUTE RESPIRATORY FAILURE WITH HYPOXIA Status: Acute (8) COPD exacerbation Code(s): J44.1 - CHRONIC OBSTRUCTIVE PULMONARY DISEASE W (ACUTE) EXACERBATION Status: Acute (9) Shortness of breath Code(s): R06.02 - SHORTNESS OF BREATH Status: Acute (10) Back pain Code(s): M54.9 - DORSALGIA, UNSPECIFIED Status: Chronic Qualifiers: Back pain location: low back pain Chronicity: chronic Back pain laterality: midline Sciatica presence: with sciatica Sciatica laterality: sciatica of right side Qualified Code(s): M54.41 - Lumbago with sciatica, right side; G89.29 - Other chronic pain (11) COPD (chronic obstructive pulmonary disease) Status: Chronic Qualifiers: COPD type: unspecified COPD Qualified Code(s): J44.9 - Chronic obstructive pulmonary disease, unspecified (12) Chronic pain syndrome Code(s): G89.4 - CHRONIC PAIN SYNDROME Status: Chronic (13) Fibromyalgia Status: Chronic (14) LUISA (obstructive sleep apnea) Code(s): G47.33 - OBSTRUCTIVE SLEEP APNEA (ADULT) (PEDIATRIC) Status: Chronic (15) Restless leg syndrome Status: Chronic (16) Tobacco dependence Code(s): F17.200 - NICOTINE DEPENDENCE, UNSPECIFIED, UNCOMPLICATED Status: Chronic (17) Acute and chronic respiratory failure with hypoxia Code(s): J96.21 - ACUTE AND CHRONIC RESPIRATORY FAILURE WITH HYPOXIA Status: Resolved - Plan Plan: medical unit pulmonology consultation, recommendations appreciated supplemental oxygen to maintain O2 saturation greater than 88%, may need to go home on supplemental O2 pulmonary specific antibiotics with coverage for community acquired pneumonia and Covid 19 Covid 19 pending, other respiratory panel negative COPD with acute exacerbation IV steroids breathing treatments Mucinex to loosen thick secretions that she states she cant expel continue other home medications as able blood pressure control blood sugar control G.I. prophylaxis DVT prophylaxis
[2020-03-05] MEDS: Methocarbamol 500 MG TAB PO PRN (20:50)
[2020-03-05] MEDS: Melatonin 3 MG TAB PO PRN (20:56)
[2020-03-05] MEDS: Pramipexole Di-HCl 1 MG TAB PO SCH (20:56)
[2020-03-05] MEDS: guaiFENesin ER 600 MG TAB PO SCH (20:57)
[2020-03-05 23:27] LABS: Bacteria/HPF None Seen HPF (None Seen); Bilirubin Negative (Negative); Blood, Urine Trace (Negative); Clarity Clear (Clear); Glucose, Urine (Dipstick) Normal (Negative); Leukocyte Negative Leu/uL (Negative); Nitrite Negative (Negative); Protein, Urine (Dipstick) 20 mg/dL (Neg-Trace); Urobilinogen Normal mg/dL (Less than 2); WBC/HPF 0-3 HPF (0-3)
[2020-03-05 23:28] LABS: Urine Culture Reflex No No
[2020-03-06] MEDS: Azithromycin 500 MG in Sodium Chloride 0.9% 250 ML 250 ML IVPB SCH (01:41)
[2020-03-06] MEDS: methylPREDNISolone Sod Succ 40 MG VIAL IVP SCH ×4 (01:42→17:22)
[2020-03-06] MEDS: HYDROcodone/Acetaminophen 10/325 mg Tablet PO PRN ×2 (01:42→12:35)
[2020-03-06] MEDS: guaiFENesin ER 600 MG TAB PO SCH ×2 (07:58→20:36)
[2020-03-06] MEDS: Montelukast Sodium 10 mg Tablet PO SCH (07:58)
[2020-03-06] MEDS: diphenhydrAMINE 25 MG CAP PO SCH ×2 (07:58→20:35)
[2020-03-06] MEDS: Carvedilol 6.25 MG TAB PO SCH ×2 (07:58→20:35)
[2020-03-06] MEDS: Enoxaparin Sodium 40 MG/0.4 ML SYRINGE SC SCH (07:59)
[2020-03-06] MEDS: Estradiol 1 MG TAB PO SCH (07:59)
[2020-03-06] MEDS: Methocarbamol 500 MG TAB PO PRN ×2 (08:46→17:20)
[2020-03-06] MEDS ORDERED: Nicotine 7 MG PATCH TD SCH (12:00)
--- NOTE | 2020-03-06 12:00 | PDOC.HOSPP ---
- Subjective Subjective: Seen and examined. She is still diffusely wheezy across the chest. She states that she is bringing up more sputum after the addition of Mucinex. Overall she states that she is breathing much better. Patient has numerous complaints including the hardness of the bed, wanting muscle relaxers [id number], wanting better food. Time was given for questions, all answered in detail. - Objective Vital Signs & Weight: Vital Signs (12 hours) Temp Pulse Resp BP Pulse Ox 03/06/20 08:00 97.6 F 71 18 142/75 H 97 Weight Weight 174 lb 2.643 oz I&O: 03/05/20 03/06/20 03/07/20 06:59 06:59 06:59 Intake Total 744 Balance 744 Result Diagrams: 03/05/20 09:27 03/05/20 09:27 Radiology Reviewed by me: Yes Hospitalist ROS - Review of Systems All other systems reviewed; all pertinent +/- noted in HPI/Subj - Medication Medications: Active Medications Generic Name Dose Route Start Last Admin Trade Name Freq PRN Reason Stop Dose Admin Hydrocodone Bitart/Acetaminophen 1 tab 03/04/20 11:36 03/06/20 01:42 [place] 10/325 PO 1 tab Q6H PRN Administration Pain Albuterol Sulfate 0 puff 03/04/20 05:40 03/04/20 11:10 Proventil Hfa INH 2 puff Q4H PRN Administration SOB &/or Wheezing Carvedilol 6.25 mg 03/04/20 21:00 03/06/20 07:58 Coreg PO 6.25 mg BID [place] Administration Diphenhydramine HCl 25 mg 03/04/20 21:00 03/06/20 07:58 Benadryl PO 25 mg BID [place] Administration Enoxaparin Sodium 40 mg 03/04/20 09:00 03/06/20 07:59 Lovenox SC 40 mg 0900 [place] Administration Estradiol 2 mg 03/05/20 09:00 03/06/20 07:59 Estrace PO 2 mg DAILY [place] Administration Guaifenesin 1,200 mg 03/05/20 21:00 03/06/20 07:58 Mucinex PO 03/08/20 09:01 1,200 mg Q12HR [place] Administration Azithromycin 500 mg/ Sodium 250 mls @ 250 mls/hr 03/05/20 01:00 03/06/20 01: 41 Chloride IVPB 250 mls Q24HR [place] Administration Melatonin 10.5 mg 03/04/20 12:01 03/05/20 20:56 Melatonin PO 10.5 mg HS PRN Administration Insomnia Methocarbamol 750 mg 03/05/20 11:13 03/06/20 08:46 Robaxin PO 750 mg TID PRN Administration Muscle Spasm Methylprednisolone Sodium Succinate 40 mg 03/05/20 06:00 03/06/20 08:00 Solu-Medrol IVP 40 mg Q6HR [place] Administration Montelukast Sodium 10 mg 03/05/20 09:00 03/06/20 07:58 Singulair PO 10 mg DAILY [place] Administration Pramipexole Dihydrochloride 2 mg 03/04/20 21:00 03/05/20 20:56 Mirapex PO 2 mg QPM [place] Administration Sodium Chloride 10 ml 03/05/20 21:00 03/06/20 07:59 Flush - Normal Saline IVF 10 ml Q12HR [place] Administration - Exam General Appearance: NAD, awake alert Eye: anicteric sclera ENT: normocephalic atraumatic, moist mucosa Neck: supple, symmetric, no lymphadenopathy Heart: no murmur, no gallops, no rubs Respiratory: no rales, no ronchi, normal chest expansion, no tachypnea, wheezes (Mild improvement) Gastrointestinal: soft, non-tender, no guarding, no rigidity Extremities: 1+ LE edema Skin: no rashes Neurological: cranial nerve grossly intact, no focal deficits Musculoskeletal: generalized weakness Psychiatric: A&O x 3, flat affect Psychiatric - other findings: Anxious Hosp A/P (1) Acute respiratory failure Code(s): J96.00 - ACUTE RESPIRATORY FAILURE, UNSP W HYPOXIA OR HYPERCAPNIA Status: Acute (2) CAD (coronary artery disease) Code(s): I25.10 - ATHSCL HEART DISEASE OF [place] CORONARY ARTERY W/O ANG PCTRS Status: Acute (3) Hyperlipidemia Code(s): E78.5 - HYPERLIPIDEMIA, UNSPECIFIED Status: Acute (4) Hypertension Code(s): I10 - ESSENTIAL (PRIMARY) HYPERTENSION Status: Acute (5) Suspected COVID-19 virus infection Code(s): R68.89 - OTHER GENERAL SYMPTOMS AND SIGNS Status: Acute (6) Acute and chronic respiratory failure Code(s): J96.20 - ACUTE AND CHR RESP FAILURE, UNSP W HYPOXIA OR HYPERCAPNIA Status: Acute (7) Acute respiratory failure with hypoxia Code(s): J96.01 - ACUTE RESPIRATORY FAILURE WITH HYPOXIA Status: Acute (8) COPD exacerbation Code(s): J44.1 - CHRONIC OBSTRUCTIVE PULMONARY DISEASE W (ACUTE) EXACERBATION Status: Acute (9) Shortness of breath Code(s): R06.02 - SHORTNESS OF BREATH Status: Acute (10) Back pain Code(s): M54.9 - DORSALGIA, UNSPECIFIED Status: Chronic Qualifiers: Back pain location: low back pain Chronicity: chronic Back pain laterality: midline Sciatica presence: with sciatica Sciatica laterality: sciatica of right side Qualified Code(s): M54.41 - Lumbago with sciatica, right side; G89.29 - Other chronic pain (11) COPD (chronic obstructive pulmonary disease) Status: Chronic Qualifiers: COPD type: unspecified COPD Qualified Code(s): J44.9 - Chronic obstructive pulmonary disease, unspecified (12) Chronic pain syndrome Code(s): G89.4 - CHRONIC PAIN SYNDROME Status: Chronic (13) Fibromyalgia Status: Chronic (14) LUISA (obstructive sleep apnea) Code(s): G47.33 - OBSTRUCTIVE SLEEP APNEA (ADULT) (PEDIATRIC) Status: Chronic (15) Restless leg syndrome Status: Chronic (16) Tobacco dependence Code(s): F17.200 - NICOTINE DEPENDENCE, UNSPECIFIED, UNCOMPLICATED Status: Chronic (17) Acute and chronic respiratory failure with hypoxia Code(s): J96.21 - ACUTE AND CHRONIC RESPIRATORY FAILURE WITH HYPOXIA Status: Resolved - Plan Plan: medical unit pulmonology consultation, recommendations appreciated supplemental oxygen to maintain O2 saturation greater than 88%, may need to go home on supplemental O2 pulmonary specific antibiotics with coverage for community acquired pneumonia and Covid 19 Covid 19 pending, other respiratory panel negative COPD with acute exacerbation IV steroids breathing treatments, ok to use home nebulizer if she can bring it in Mucinex to loosen thick secretions that she states she cant expel, now with improved symptoms continue other home medications as able blood pressure control blood sugar control G.I. prophylaxis DVT prophylaxis
--- NOTE | 2020-03-06 14:24 | CON ---
DATE OF CONSULTATION: 03/06/2020 The initial part of this consultation was performed by reviewing records and speaking with nursing staff. I will formally examine the patient after her COVID-19 test has come back. HISTORY OF PRESENT ILLNESS: Mely is well known to me. She is a 49-year-old female, who has a conversion disorder with multiple intubations related to vocal cord dysfunction. She also has some underlying COPD. She is a frequent visitor of all 3 hospital facilities in [facility]. She was admitted to this facility on 03/04 with typical symptoms of shortness of breath. She was put in a COVID-19 rule out protocol. I have reviewed her vital signs and she has remained afebrile throughout her hospital course. PHYSICAL EXAMINATION: Review of the vital signs demonstrates temperature of 98.2, pulse 74, blood pressure 141/73, O2 saturation 96%. Review of her nurse's notes indicates no acute issues with her exam and she is currently only requiring 1 L nasal cannula. IMAGING: Her chest x-ray demonstrates no acute abnormalities. LABORATORY DATA: Sodium 137, BUN 12, creatinine 0.7, glucose 168. White blood cell count 12.2, hematocrit 40, and platelet count 258. ASSESSMENT: Based on the clinical situation, I doubt she has COVID-19 infection. I have reviewed the orders and chart, agree with the steroids, metered dose inhalers, and antibiotics. Once she is ruled out, she could conceivably go back on nebulization treatments. Typically, she will only stay in the hospital for a day or two before she leaves or goes against medical advice. Job ID: [id number]
[2020-03-06] MEDS: Pramipexole Di-HCl 1 MG TAB PO SCH (20:34)
[2020-03-06] MEDS ORDERED: traZODone HCl 50 MG TAB PO SCH (21:00)
[2020-03-07] MEDS: Azithromycin 500 MG in Sodium Chloride 0.9% 250 ML 250 ML IVPB SCH (02:12)
[2020-03-07] MEDS: methylPREDNISolone Sod Succ 40 MG VIAL IVP SCH ×2 (02:13→06:51)
[2020-03-07] MEDS: HYDROcodone/Acetaminophen 10/325 mg Tablet PO PRN (02:22)
[2020-03-07] MEDS: Estradiol 1 MG TAB PO SCH (08:09)
[2020-03-07] MEDS: diphenhydrAMINE 25 MG CAP PO SCH (08:09)
[2020-03-07] MEDS: Montelukast Sodium 10 mg Tablet PO SCH (08:09)
[2020-03-07 08:10] VITALS: TEMP 98.1
[2020-03-07] MEDS: guaiFENesin ER 600 MG TAB PO SCH (08:10)
[2020-03-07] MEDS: Carvedilol 6.25 MG TAB PO SCH (08:10)
[2020-03-07] MEDS: Enoxaparin Sodium 40 MG/0.4 ML SYRINGE SC SCH (08:10)
[2020-03-07] MEDS: Methocarbamol 500 MG TAB PO PRN (08:12)
[2020-03-07 08:14] VITALS: BP 147/78
--- NOTE | 2020-03-07 08:21 | PRG ---
DATE OF SERVICE: 03/07/2020 SUBJECTIVE: The patient is doing extremely well, wants to go home. She has questions about her qualifying for home O2. OBJECTIVE: HEENT: Unremarkable. NECK: No adenopathy or JVD. LUNGS: Clear anteriorly. She has some rhonchi posteriorly. ABDOMEN: Soft. EXTREMITIES: No edema. Her O2 saturation is 97% on room air. ASSESSMENT: 1. Chronic obstructive pulmonary disease exacerbation. 2. She has been ruled out for COVID-19 pneumonia. PLAN: I think she is ready for discharge. I would wean her steroids over a couple of weeks. In terms of her oxygen, I would just do a home O2 evaluation with a resting O2 saturation and an ambulatory O2 saturation. If she drops below 88, then she will qualify for ambulatory oxygen. Job ID: [id number]
--- NOTE | 2020-03-09 10:35 | DIS ---
DATE OF ADMISSION: 03/03/2020 DATE OF DISCHARGE: 03/07/2020 DISCHARGE DIAGNOSES: 1. Chronic obstructive pulmonary disease exacerbation. 2. Acute hypoxic respiratory failure. 3. Coronary artery disease. 4. Hypertension. 5. Hyperlipidemia. 6. COVID-19 test negative. 7. Chronic pain syndrome. 8. Fibromyalgia. 9. History of obstructive sleep apnea. 10. Restless legs syndrome. 11. Tobacco abuse. HISTORY OF PRESENT ILLNESS: This patient is a 49-year-old female with the above chronic conditions, who presented to the emergency department reporting worsening shortness of breath. Her workup was consistent with COPD exacerbation and had a negative chest x-ray. She did require some supplemental oxygen and she was initially isolated for concerns for potential COVID-19 infection. HOSPITAL COURSE: The patient was treated with steroids, antibiotics, and bronchodilators as well as supplemental oxygen. She had steady improvement and her COVID-19 test returned negative. Once the patient was weaned off oxygen and breathing more comfortably, she was felt to be stable for discharge to home. She had consultation by Pulmonology, who agreed that the patient was appropriate for stable discharge. PHYSICAL EXAMINATION: On the day of discharge VITAL SIGNS: afebrile, BP 147/78, respirations 20, O2 saturation 97% on room air. GENERAL: She was awake, alert. HEART: Regular rate and rhythm. LUNGS: Diminished with very minimal scattered wheeze, but adequate air exchange. ABDOMEN: Soft, nontender, and nondistended. Positive bowel sounds. No masses. No organomegaly. EXTREMITIES: No edema. DISPOSITION: The patient is discharged to home in stable condition. ACTIVITY: As tolerated. DIET: She will be on a heart healthy diet. MEDICATIONS: Include 1. Azithromycin 250 mg p.o. q. day. 2. Prednisone taper. She will continue her home medications includin. Melatonin 10 mg q.h.s. 2. Mirapex 2 mg q.h.s. 3. Singulair 10 mg q. day. 4. Carvedilol 6.25 mg b.i.d. 5. Estradiol 2 mg q. day. 6. Trazodone 25 mg q.h.s. 7. Nitroglycerin 0.3 mg sublingual p.r.n. 8. [place] 10/325 p.r.n. pain. 9. Benadryl 25 mg b.i.d. 10. Robaxin 750 t.i.d. FOLLOWUP: She is to follow up with [facility] and Dr. Per Grey. She can return to the hospital anytime she has the need to do so. Time spent in discharge activities was 39 minutes. Job ID: [id number] MTDD
--- NOTE | 2020-03-16 14:32 | EKG ---
Test Reason : Blood Pressure : / mmHG Vent. Rate : 096 BPM Atrial Rate : 096 BPM P-R Int : 166 ms QRS Dur : 074 ms QT Int : 336 ms P-R-T Axes : 085 065 056 degrees QTc Int : 424 ms Sinus rhythm with occasional Premature ventricular complexes Possible Left atrial enlargement Borderline ECG Confirmed by PUJA RASMUSSEN, SERGE Wynn ([id number]), editor continuity and script MARIELENA DUQUE ([id number]) on 03/16/2020 2:31:35 PM Referred By: Confirmed By:SERGE LUO MD
== END 2020-03-07 11:32 | disposition home or self-care (01) | DRG 189 ==
LOC: ERS 22:54 → T4-A 03-04 01:01
PROVIDERS: ADMIT Internal Medicine; ATTEND Internal Medicine
PROC: 8E0ZXY6 Isolation (ICD-10-PCS; principal; 2020-03-04)
DX: J96.21 Acute and chronic respiratory failure with hypoxia (principal); J44.1 Chronic obstructive pulmonary disease with (acute) exacerbation; I10 Essential (primary) hypertension; E78.5 Hyperlipidemia, unspecified; I25.10 Atherosclerotic heart disease of native coronary artery without angina pectoris; F41.9 Anxiety disorder, unspecified; M54.5 Low back pain; F17.200 Nicotine dependence, unspecified, uncomplicated; D64.9 Anemia, unspecified; K59.00 Constipation, unspecified; G89.4 Chronic pain syndrome; M79.7 Fibromyalgia; G47.33 Obstructive sleep apnea (adult) (pediatric); G25.81 Restless legs syndrome; Z90.89 Acquired absence of other organs; Z20.828 Contact with and (suspected) exposure to other viral communicable diseases
CPT/HCPCS: 36415; 71045; 80048; 80053; 81001; 83605; 83880; 84484; 85025; 85027; 87040; 87070; 87205; 87633; 87635; 93005; 96361; 96365; 96368; 96375; J0456; J1650; J1885; J2405; J2920; J3475; J7050; Q0163; U0003

== ENCOUNTER 2020-04-09 22:24 | Emergency (ER) | payer BC ==
[2020-04-09 23:19] LABS: ALT (SGPT) 16 U/L (8-55); AST (SGOT) 16 U/L (5-34); Albumin 3.8 g/dL (3.5-5.0); Alkaline Phosphatase 61 U/L (40-110); Anion Gap 13 mmol/L (10-20); BUN (Urea Nitrogen) 14 mg/dL (7.0-18.7); Bilirubin, Total 0.4 mg/dL (0.2-1.2); Calc. Creatinine Clearance 0 mL/min (70-130); Calcium 9.2 mg/dL (7.8-10.44); Carbon Dioxide 25 mmol/L (22-29); Chloride 106 mmol/L (98-107); Estimated GFR-MDRD 78; Globulin 3.4 g/dL (2.4-3.5); Glucose 109 mg/dL (70-105); Protein, Total 7.2 g/dL (6.0-8.3); Sodium 140 mmol/L (136-145)
[2020-04-09 23:22] LABS: Hemoglobin 12.1 g/dL (12.0-16.0); Mean Corpuscular HGB CONC 30.8 g/dL (32.0-36.0); Mean Corpuscular Hemoglobin 25.6 pg (27.0-31.0); Mean Corpuscular Volume 83.2 fL (78.0-98.0); Mean Platelet Volume 8.1 fL (7.4-10.4); Platelet Count 285 thou/uL (130-400); RBC Distribution Width 16.1 % (11.5-14.5); Red Blood Cell (RBC) Count 4.74 mill/uL (4.20-5.40); White Blood Cell (WBC) Count 20.7 thou/uL (4.8-10.8)
[2020-04-09] MEDS ORDERED: methylPREDNISolone Sod Succ/PF 125 MG/2 ML VIAL ONE (23:26)
[2020-04-09 23:36] LABS: Band 5 % (5-11); Eosinophils 4 % (0-10); Lymphocytes 10 % (21-51); MDiff Complete? YES; Monocytes 6 % (0-10); Neutrophil 75 % (42-75)
--- NOTE | 2020-04-10 | RAD ---
CHEST 1 VIEW: Date: 04/09/2020 HISTORY: Cough. COMPARISON: Radiograph dated 03/27/2020. FINDINGS: The lungs are without confluent air space consolidation, pneumothorax or effusion. Cardiac silhouette and mediastinal contours similar. No acute osseous abnormality. IMPRESSION: No acute intrathoracic abnormality. POS: HOME
[2020-04-10] MEDS ORDERED: Magnesium 2 GM/50 ML BAG (IN WATER) ONE ×2 (00:12→00:35)
== END 2020-04-10 01:18 | disposition home or self-care (01) ==
LOC: ERS 22:24
DX: J44.1 Chronic obstructive pulmonary disease with (acute) exacerbation (principal); I25.10 Atherosclerotic heart disease of native coronary artery without angina pectoris; I25.2 Old myocardial infarction; F41.9 Anxiety disorder, unspecified; Z79.899 Other long term (current) drug therapy
CPT/HCPCS: 71045; 80053; 83605; 83880; 84484; 85025; 87040; 94760; 96365; 96375; J2930; J3475; J7620

== ENCOUNTER 2022-03-13 15:10 | Outpatient (CLI) | payer BC, MEDICARE | END 2022-03-13 15:11 | disposition home or self-care (01) | LOC: RAD 15:10 | PROVIDERS: ATTEND Internal Medicine Critical Care Medicine | DX: R06.00 Dyspnea, unspecified (principal); Z98.890 Other specified postprocedural states | CPT/HCPCS: 71046 ==

== ENCOUNTER 2022-03-17 06:07 | Emergency (ER) | payer BC, MEDICARE ==
[2022-03-17 06:47] LABS: #Eosinphils 1.7 thou/uL (0.0-0.7); #Lymphocytes 1.2 thou/uL (1.20-3.40); #Monocytes 1.3 thou/uL (0.11-0.59); #Neutrophils 12.5 thou/uL (1.40-6.50); %Basophils 0.3 % (0.0-1.0); %Eosinophils 9.9 % (0.0-10.0); %Lymphocytes 7.2 % (21.0-51.0); %Monocytes 7.7 % (0.0-10.0); %Neutrophils 74.9 % (42.0-75.0); Hemoglobin 13.4 g/dL (12.0-16.0); Mean Corpuscular HGB CONC 30.4 g/dL (32.0-36.0); Mean Corpuscular Hemoglobin 27.7 pg (27.0-31.0); Mean Platelet Volume 7.9 fL (7.4-10.4); Platelet Count 265 thou/uL (130-400); RBC Distribution Width 15.7 % (11.5-14.5); Red Blood Cell (RBC) Count 4.84 mill/uL (4.20-5.40); White Blood Cell (WBC) Count 16.7 thou/uL (4.8-10.8)
[2022-03-17 07:20] LABS: ALT (SGPT) 18 U/L (8-55); AST (SGOT) 13 U/L (5-34); Albumin 3.3 g/dL (3.5-5.0); Alkaline Phosphatase 72 U/L (40-110); Anion Gap 16 mmol/L (10-20); BUN (Urea Nitrogen) 15 mg/dL (9.8-20.1); Bilirubin, Total Less than 0.2 mg/dL (0.2-1.2); Calc. Creatinine Clearance 0 mL/min (70-130); Calcium 8.9 mg/dL (7.8-10.44); Carbon Dioxide 26 mmol/L (22-29); Chloride 105 mmol/L (98-107); Glucose 131 mg/dL (70-105); Protein, Total 6.3 g/dL (6.0-8.3); Sodium 143 mmol/L (136-145)
[2022-03-17] MEDS ORDERED: methylPREDNISolone Sod Succ 40 MG VIAL ONE (07:35)
== END 2022-03-17 08:15 | disposition home or self-care (01) ==
LOC: ERS 06:07
DX: J44.9 Chronic obstructive pulmonary disease, unspecified (principal); I25.10 Atherosclerotic heart disease of native coronary artery without angina pectoris; I25.2 Old myocardial infarction; Z87.891 Personal history of nicotine dependence
CPT/HCPCS: 36415; 71045; 80053; 83880; 84484; 85025; 93005; 96372; J2920

== ENCOUNTER 2022-04-25 00:46 | Inpatient (IN) | payer BC, MEDICARE ==
[2022-04-25 02:53] VITALS: BMI 29.4
[2022-04-25] MEDS ORDERED: Metamucil PACK PO SCH (03:15)
[2022-04-25] MEDS ORDERED: Azithromycin 500 MG in Sodium Chloride 0.9% 250 ML 250 ML IVPB SCH (04:00)
[2022-04-25] MEDS: oxyCODONE 5 MG TAB PO PRN ×2 (04:44→18:18)
[2022-04-25] MEDS: VANCOMYCIN 1.25 GM/250 ML BAG 1.25 GM in Premix Bag 1 BAG IVPB SCH ×2 (04:46→18:09)
[2022-04-25] MEDS ORDERED: Simethicone Chewable 80 MG TAB PO PRN (05:29)
[2022-04-25 05:46] LABS: Legionella Urinary Ag Negative (Negative); Strep pneumo Urine Ag NEGATIVE (NEGATIVE)
[2022-04-25 06:22] LABS: Amphetamine Not Detected (NotDetected); Barbiturates Screen Not Detected (NotDetected); Benzodiazepine Screen Detected (NotDetected); Cocaine Metabolite Screen Not Detected (NotDetected); Methadone Not Detected (NotDetected); Methamphetamine Not Detected (NotDetected); Opiate Screen Not Detected (NotDetected); Oxycodone Screen Detected (NotDetected); Phencyclidine (PCP) Not Detected (NotDetected); THC/Cannabinoid Screen Not Detected (NotDetected); Tricyclic Screen Not Detected (NotDetected)
[2022-04-25 06:43] LABS: #Eosinphils 0.2 thou/uL (0.0-0.7); #Lymphocytes 0.7 thou/uL (1.20-3.40); #Monocytes 0.1 thou/uL (0.11-0.59); #Neutrophils 9.1 thou/uL (1.40-6.50); %Basophils 0.3 % (0.0-1.0); %Eosinophils 1.8 % (0.0-10.0); %Lymphocytes 7.1 % (21.0-51.0); %Monocytes 0.7 % (0.0-10.0); %Neutrophils 90.1 % (42.0-75.0); Hemoglobin 12.2 g/dL (12.0-16.0); Mean Corpuscular HGB CONC 31.5 g/dL (32.0-36.0); Mean Corpuscular Hemoglobin 28.4 pg (27.0-31.0); Mean Corpuscular Volume 90.1 fL (78.0-98.0); Mean Platelet Volume 8.2 fL (7.4-10.4); Platelet Count 207 thou/uL (130-400); RBC Distribution Width 15.1 % (11.5-14.5); White Blood Cell (WBC) Count 10.1 thou/uL (4.8-10.8)
[2022-04-25] MEDS: Mometasone/Formoterol 200/5 60 PUFF INH SCH ×2 (06:57→18:39)
[2022-04-25 06:59] LABS: Vancomycin, Random 9.2 ug/mL (See Comment)
[2022-04-25 07:01] LABS: ALT (SGPT) 31 U/L (8-55); AST (SGOT) 24 U/L (5-34); Albumin 3.2 g/dL (3.5-5.0); Alkaline Phosphatase 79 U/L (40-110); Anion Gap 13 mmol/L (10-20); BUN (Urea Nitrogen) 15 mg/dL (9.8-20.1); Bilirubin, Total 0.3 mg/dL (0.2-1.2); CRP (Inflammatory) 3.32 mg/dL (= or < 0.5); Calc. Creatinine Clearance 107 mL/min (70-130); Calcium 8.8 mg/dL (7.8-10.44); Carbon Dioxide 24 mmol/L (22-29); Chloride 105 mmol/L (98-107); Globulin 3.6 g/dL (2.4-3.5); Glucose 207 mg/dL (70-105); Protein, Total 6.8 g/dL (6.0-8.3); Sodium 138 mmol/L (136-145)
[2022-04-25] MEDS ORDERED: Albuterol Sulfate 2.5 mg/3 ml Neb NEB PRN (07:13)
[2022-04-25] MEDS: Aspirin 81 mg Enteric Coated Tablet PO SCH (08:50)
[2022-04-25] MEDS: oxyCODONE 5 MG TAB PO SCH ×2 (08:50→20:16)
[2022-04-25] MEDS: Potassium Chloride 20 MEQ TAB PO SCH (08:50)
[2022-04-25] MEDS: Ferrous Sulfate 325 MG TAB PO SCH ×2 (08:52→17:23)
[2022-04-25] MEDS: Enoxaparin Sodium 40 MG/0.4 ML SYRINGE SC SCH (08:52)
[2022-04-25] MEDS: DULoxetine 60 MG CAP PO SCH (08:52)
[2022-04-25] MEDS: Cefepime 2 GM in Sodium Chloride 0.9% 100 ML IVPB SCH ×2 (08:53→17:23)
[2022-04-25] MEDS: Bumetanide 1 MG TAB PO SCH ×3 (08:53→20:21)
[2022-04-25 14:01] LABS: Troponin I Less than 0.010 ng/mL (< 0.028)
[2022-04-25] MEDS ORDERED: predniSONE 20 MG TAB PO SCH (18:00)
[2022-04-25] MEDS: ALPRAZolam 1 MG TAB PO SCH (20:16)
[2022-04-25] MEDS ORDERED: traZODone HCl 50 MG TAB PO SCH (21:00)
[2022-04-25] MEDS ORDERED: Pramipexole Di-HCl 1 MG TAB PO SCH (21:00)
[2022-04-26] MEDS: Cefepime 2 GM in Sodium Chloride 0.9% 100 ML IVPB SCH (00:46)
[2022-04-26] MEDS: VANCOMYCIN 1.25 GM/250 ML BAG 1.25 GM in Premix Bag 1 BAG IVPB SCH (03:49)
[2022-04-26] MEDS: oxyCODONE 5 MG TAB PO PRN (03:50)
[2022-04-26] MEDS ORDERED: Bumetanide 1 MG TAB PO SCH (06:00)
[2022-04-26] MEDS ORDERED: Albuterol Sulfate 2.5 mg/3 ml Neb IPPB PRN (06:48)
[2022-04-26] MEDS: Mometasone/Formoterol 200/5 60 PUFF INH SCH (07:26)
[2022-04-26 07:28] LABS: #Eosinphils 0.2 thou/uL (0.0-0.7); #Lymphocytes 1.5 thou/uL (1.20-3.40); #Monocytes 1.4 thou/uL (0.11-0.59); #Neutrophils 10.4 thou/uL (1.40-6.50); %Basophils 0.2 % (0.0-1.0); %Eosinophils 1.5 % (0.0-10.0); %Lymphocytes 10.8 % (21.0-51.0); %Monocytes 10.5 % (0.0-10.0); %Neutrophils 77.1 % (42.0-75.0); Hemoglobin 11.4 g/dL (12.0-16.0); Mean Corpuscular HGB CONC 31.6 g/dL (32.0-36.0); Mean Corpuscular Hemoglobin 28.6 pg (27.0-31.0); Mean Corpuscular Volume 90.4 fL (78.0-98.0); Mean Platelet Volume 8.2 fL (7.4-10.4); Platelet Count 222 thou/uL (130-400); RBC Distribution Width 15.2 % (11.5-14.5); Red Blood Cell (RBC) Count 3.97 mill/uL (4.20-5.40); White Blood Cell (WBC) Count 13.4 thou/uL (4.8-10.8)
[2022-04-26 07:30] LABS: ALT (SGPT) 31 U/L (8-55); AST (SGOT) 19 U/L (5-34); Albumin 3.3 g/dL (3.5-5.0); Alkaline Phosphatase 67 U/L (40-110); Anion Gap 14 mmol/L (10-20); BUN (Urea Nitrogen) 17 mg/dL (9.8-20.1); Bilirubin, Total 0.3 mg/dL (0.2-1.2); Calc. Creatinine Clearance 112 mL/min (70-130); Calcium 8.9 mg/dL (7.8-10.44); Carbon Dioxide 25 mmol/L (22-29); Chloride 106 mmol/L (98-107); Globulin 3.6 g/dL (2.4-3.5); Glucose 96 mg/dL (70-105); Potassium 3.9 mmol/L (3.5-5.1); Protein, Total 6.9 g/dL (6.0-8.3); Sodium 141 mmol/L (136-145)
[2022-04-26 07:48] LABS: HIV (1/2) Antibody/Antigen Non-Reactive (NonReactive); HIV 1/2 INDEX 0.11 S/CO (<1.00)
[2022-04-26] MEDS: Potassium Chloride 20 MEQ TAB PO SCH (08:20)
[2022-04-26] MEDS: DULoxetine 60 MG CAP PO SCH (08:20)
[2022-04-26] MEDS: ALPRAZolam 1 MG TAB PO SCH (08:20)
[2022-04-26] MEDS: Ferrous Sulfate 325 MG TAB PO SCH (08:20)
[2022-04-26] MEDS: oxyCODONE 5 MG TAB PO SCH (08:20)
[2022-04-26] MEDS: Enoxaparin Sodium 40 MG/0.4 ML SYRINGE SC SCH (08:20)
[2022-04-26] MEDS: Aspirin 81 mg Enteric Coated Tablet PO SCH (08:20)
[2022-04-26] MEDS ORDERED: Furosemide 20 MG/2 ML VIAL SLOW IVP SCH (09:15)
[2022-04-26 15:15] LABS: Vancomycin, Trough 18.5 ug/mL
[2022-04-26 15:44] VITALS: BP 108/65; TEMP 98.6
== END 2022-04-26 15:43 | disposition home health service (06) | DRG 177 ==
LOC: INTOOBSV 01:30 → T4-A 01:30 → OBSVTOIN 14:59
PROVIDERS: ADMIT Emergency Medicine; ATTEND Emergency Medicine
PROC: 8E0ZXY6 Isolation (ICD-10-PCS; principal; 2022-04-25)
DX: U07.1 COVID-19 (principal); J96.01 Acute respiratory failure with hypoxia; J12.82 Pneumonia due to coronavirus disease 2019; I50.30 Unspecified diastolic (congestive) heart failure; J44.1 Chronic obstructive pulmonary disease with (acute) exacerbation; J44.0 Chronic obstructive pulmonary disease with (acute) lower respiratory infection; T81.30XA Disruption of wound, unspecified, initial encounter; I25.10 Atherosclerotic heart disease of native coronary artery without angina pectoris; I25.2 Old myocardial infarction; J44.9 Chronic obstructive pulmonary disease, unspecified; F41.9 Anxiety disorder, unspecified; F32.A Depression, unspecified; G89.4 Chronic pain syndrome; M79.7 Fibromyalgia; R07.89 Other chest pain; M06.9 Rheumatoid arthritis, unspecified; K43.9 Ventral hernia without obstruction or gangrene; G47.33 Obstructive sleep apnea (adult) (pediatric); I11.0 Hypertensive heart disease with heart failure; E88.09 Other disorders of plasma-protein metabolism, not elsewhere classified; Z86.16 Personal history of COVID-19; Z98.890 Other specified postprocedural states; Z88.0 Allergy status to penicillin; Z88.8 Allergy status to other drugs, medicaments and biological substances; Z88.1 Allergy status to other antibiotic agents; Z79.82 Long term (current) use of aspirin; Z79.899 Other long term (current) drug therapy; Z79.891 Long term (current) use of opiate analgesic; Z79.2 Long term (current) use of antibiotics; Z98.1 Arthrodesis status; Z90.710 Acquired absence of both cervix and uterus; Z87.891 Personal history of nicotine dependence; Z90.49 Acquired absence of other specified parts of digestive tract; Z82.49 Family history of ischemic heart disease and other diseases of the circulatory system
CPT/HCPCS: 36415; 80053; 80202; 80306; 84134; 84145; 84484; 85025; 85652; 86140; 87040; 87070; 87205; 87389; 87449; 87899; 94640; J0456; J0692; J1650; J1940; J3370; J3490; J7050; J7512; J7620

== ENCOUNTER 2022-05-08 02:46 | Inpatient (IN) | payer BC, MEDICARE ==
[2022-05-08] MEDS ORDERED: Albuterol Sulfate 2.5 mg/3 ml Neb ONE (03:11)
[2022-05-08 03:54] LABS: Analyzer IN Cardio ER; Base Excess (BEa) -2.8 mEq/L (-2.0 to +3.0); Calcium, Ionized (arterial) 1.15 mmol/L (1.12-1.30); Carboxyhemoglobin (COHb) 0.9 gm% (0.0-3.0); O2 Tension (PaO2), arterial 89.2 mmHg (80.0-100.0); Potassium - ABG Lab 4.74 mmol/L (3.70-5.30)
[2022-05-08 04:05] LABS: Hemoglobin 13.4 g/dL (12.0-16.0); Mean Corpuscular Hemoglobin 29.3 pg (27.0-31.0); Mean Corpuscular Volume 94.8 fL (78.0-98.0); Mean Platelet Volume 7.6 fL (7.4-10.4); Platelet Count 247 thou/uL (130-400); RBC Distribution Width 16.1 % (11.5-14.5); Red Blood Cell (RBC) Count 4.57 mill/uL (4.20-5.40); White Blood Cell (WBC) Count 25.6 thou/uL (4.8-10.8)
[2022-05-08 04:10] LABS: CO2 Tension 70.9 mmHg (35.0-45.0)
[2022-05-08 04:11] LABS: ALV-art Gradient 107.375 mmHg (0-20); Puncture Site LBA
[2022-05-08 04:21] LABS: ALT (SGPT) 78 U/L (8-55); AST (SGOT) 66 U/L (5-34); Albumin 3.7 g/dL (3.5-5.0); Alkaline Phosphatase 81 U/L (40-110); Anion Gap 13 mmol/L (10-20); BUN (Urea Nitrogen) 21 mg/dL (9.8-20.1); Bilirubin, Total 0.3 mg/dL (0.2-1.2); Calc. Creatinine Clearance 0 mL/min (70-130); Calcium 8.4 mg/dL (7.8-10.44); Carbon Dioxide 27 mmol/L (22-29); Chloride 105 mmol/L (98-107); Globulin 3.2 g/dL (2.4-3.5); Glucose 186 mg/dL (70-105); Potassium 5.1 mmol/L (3.5-5.1); Protein, Total 6.9 g/dL (6.0-8.3); Sodium 140 mmol/L (136-145)
[2022-05-08 04:23] LABS: Band 10 % (5-11); Eosinophils 9 % (0-10); Lymphocytes 7 % (21-51); MDiff Complete? YES; Monocytes 1 % (0-10); Neutrophil 72 % (42-75)
[2022-05-08 05:34] LABS: SARS-CoV-2 NAA Rapid Test Not Detected (NotDetected)
[2022-05-08] MEDS ORDERED: Sodium Chloride 0.9% 1,000 ML IV SCH (06:00)
[2022-05-08] MEDS ORDERED: Ventilator Sedation Protocol 1 EACH FS SCH (06:00)
[2022-05-08] MEDS ORDERED: Morphine 4 MG/ML VIAL SLOW IVP PRN (06:15)
[2022-05-08] MEDS ORDERED: Fentanyl BOLUS 250 ML IVPB PRN ×2 (06:15)
[2022-05-08] MEDS ORDERED: fentaNYL Citrate/PF 2,000 MCG in Sodium Chloride 0.9% 60 ML IV SCH (06:15)
[2022-05-08] MEDS ORDERED: DISCONTINUE PREVIOUS NARCOTIC PAIN MEDICATIONS AND BENZODIAZEPINES FS SCH ×2 (06:15)
[2022-05-08] MEDS ORDERED: Propofol BOLUS 1,000 MG/100 ML VIAL IV PRN ×2 (06:15)
[2022-05-08] MEDS ORDERED: Lorazepam 2 MG/ML VIAL SLOW IVP PRN (06:15)
[2022-05-08] MEDS ORDERED: Propofol 1,000 MG/100 ML VIAL IV PRN (06:15)
[2022-05-08] MEDS ORDERED: Ipratropium Bromide 2.5 ml Neb NEB SCH (07:00)
[2022-05-08] MEDS: Propofol 1,000 MG/100 ML VIAL IV PRN ×2 (07:34→20:23)
[2022-05-08] MEDS ORDERED: Azithromycin 500 MG in Sodium Chloride 0.9% 250 ML 250 ML IVPB SCH (08:00)
[2022-05-08 08:24] LABS: Actual Bicarbonate (HCO3a) 28.8 mEq/L (22-28); Base Excess (BEa) 0.9 mEq/L (-2.0 to +3.0); Calcium, Ionized (arterial) 1.12 mmol/L (1.12-1.30); Carboxyhemoglobin (COHb) 0.9 gm% (0.0-3.0); Hemoglobin (Hb) 13.5 g/dL (12.0-16.0); O2 Tension (PaO2), arterial 103.6 mmHg (80.0-100.0); Potassium - ABG Lab 4.98 mmol/L (3.70-5.30); pH, Arterial 7.29 (7.35-7.45)
[2022-05-08] MEDS ORDERED: Dextrose 5% in Water 1,000 ML IV PRN (08:25)
[2022-05-08] MEDS ORDERED: Dextrose 50% Abboject 50 ML SYRINGE SLOW IVP PRN (08:25)
[2022-05-08] MEDS ORDERED: HumaLOG 300 UNITS/3 ML VIAL SC PRN ×2 (08:25)
[2022-05-08 08:26] LABS: Puncture Site RRA
[2022-05-08] MEDS: Sodium Chloride 0.9% 1,000 ML IV SCH ×2 (09:41→22:23)
[2022-05-08] MEDS: Vecuronium 10 MG VIAL IVP PRN ×7 (09:41→22:18)
[2022-05-08] MEDS: methylPREDNISolone Sod Succ 40 MG VIAL IVP SCH ×4 (09:41→23:37)
[2022-05-08] MEDS: Lorazepam 2 MG/ML VIAL SLOW IVP PRN ×3 (09:48→20:24)
[2022-05-08] MEDS: Enoxaparin Sodium 40 MG/0.4 ML SYRINGE SC SCH (09:55)
[2022-05-08] MEDS: Pantoprazole 40 MG VIAL IVP SCH (09:55)
[2022-05-08] MEDS: Azithromycin 500 MG in Sodium Chloride 0.9% 250 ML 250 ML IVPB SCH (10:01)
[2022-05-08] MEDS ORDERED: VANCOMYCIN IVPB SCH (12:00)
[2022-05-08] MEDS: Cefepime 2 GM VIAL IVPB SCH ×2 (12:16→20:24)
[2022-05-08] MEDS: fentaNYL Citrate-0.9 % NaCl/PF 100 ML IV SCH (12:23)
[2022-05-08] MEDS: VANCOMYCIN IVPB SCH (23:37)
[2022-05-09] MEDS: Vecuronium 10 MG VIAL IVP PRN ×6 (00:52→10:54)
[2022-05-09] MEDS: fentaNYL Citrate-0.9 % NaCl/PF 100 ML IV SCH ×2 (02:16→16:42)
[2022-05-09] MEDS: Lorazepam 2 MG/ML VIAL SLOW IVP PRN ×5 (02:59→19:36)
[2022-05-09] MEDS: Cefepime 2 GM VIAL IVPB SCH ×3 (03:00→19:36)
[2022-05-09 03:57] LABS: #Lymphocytes 0.8 thou/uL (1.20-3.40); #Monocytes 0.5 thou/uL (0.11-0.59); #Neutrophils 14.4 thou/uL (1.40-6.50); %Basophils 0.1 % (0.0-1.0); %Eosinophils 0.2 % (0.0-10.0); %Lymphocytes 5.3 % (21.0-51.0); %Monocytes 3.2 % (0.0-10.0); %Neutrophils 91.2 % (42.0-75.0); Hemoglobin 12.6 g/dL (12.0-16.0); Mean Corpuscular HGB CONC 30.3 g/dL (32.0-36.0); Mean Corpuscular Hemoglobin 29.3 pg (27.0-31.0); Mean Corpuscular Volume 96.7 fL (78.0-98.0); Mean Platelet Volume 8.5 fL (7.4-10.4); Platelet Count 187 thou/uL (130-400); RBC Distribution Width 15.9 % (11.5-14.5); Red Blood Cell (RBC) Count 4.31 mill/uL (4.20-5.40); White Blood Cell (WBC) Count 15.8 thou/uL (4.8-10.8)
[2022-05-09 04:27] LABS: ALT (SGPT) 55 U/L (8-55); AST (SGOT) 31 U/L (5-34); Albumin 3.1 g/dL (3.5-5.0); Alkaline Phosphatase 63 U/L (40-110); Anion Gap 14 mmol/L (10-20); BUN (Urea Nitrogen) 19 mg/dL (9.8-20.1); Bilirubin, Total 0.3 mg/dL (0.2-1.2); Calc. Creatinine Clearance 127 mL/min (70-130); Carbon Dioxide 24 mmol/L (22-29); Chloride 108 mmol/L (98-107); Globulin 3.3 g/dL (2.4-3.5); Glucose 128 mg/dL (70-105); Potassium 4.9 mmol/L (3.5-5.1); Protein, Total 6.4 g/dL (6.0-8.3); Sodium 141 mmol/L (136-145)
[2022-05-09 04:43] LABS: Hemoglobin A1c 5.4 % (4.0-6.0)
[2022-05-09] MEDS: Propofol 1,000 MG/100 ML VIAL IV PRN ×3 (05:09→23:00)
[2022-05-09] MEDS: methylPREDNISolone Sod Succ 40 MG VIAL IVP SCH ×4 (05:09→23:06)
[2022-05-09] MEDS: Azithromycin 500 MG in Sodium Chloride 0.9% 250 ML 250 ML IVPB SCH (08:40)
[2022-05-09] MEDS: Pantoprazole 40 MG VIAL IVP SCH (08:41)
[2022-05-09] MEDS: Enoxaparin Sodium 40 MG/0.4 ML SYRINGE SC SCH (08:41)
[2022-05-09 10:04] LABS: Actual Bicarbonate (HCO3a) 30.6 mEq/L (22-28); Base Excess (BEa) 1.6 mEq/L (-2.0 to +3.0); CO2 Tension 70.4 mmHg (35.0-45.0); Calcium, Ionized (arterial) 1.14 mmol/L (1.12-1.30); Carboxyhemoglobin (COHb) 0.6 gm% (0.0-3.0); Hemoglobin (Hb) 13.4 g/dL (12.0-16.0); O2 Tension (PaO2), arterial 87.5 mmHg (80.0-100.0); Potassium - ABG Lab 4.52 mmol/L (3.70-5.30); Puncture Site RRA; pH, Arterial 7.26 (7.35-7.45)
[2022-05-09] MEDS: Vecuronium Bromide 50 MG in Sodium Chloride 0.9% 250 ML 250 ML IV SCH (10:36)
[2022-05-09 11:02] LABS: Base Excess (BEa) -1.5 mEq/L (-2.0 to +3.0); Calcium, Ionized (arterial) 1.18 mmol/L (1.12-1.30); Hemoglobin (Hb) 13.5 g/dL (12.0-16.0); O2 Tension (PaO2), arterial 77.7 mmHg (80.0-100.0); Potassium - ABG Lab 4.33 mmol/L (3.70-5.30)
[2022-05-09 11:19] LABS: CO2 Tension 71.3 mmHg (35.0-45.0); Puncture Site RRA; pH, Arterial 7.21 (7.35-7.45)
[2022-05-09 11:20] LABS: ALV-art Gradient 118.375 mmHg (0-20)
[2022-05-09] MEDS: VANCOMYCIN IVPB SCH (11:57)
[2022-05-09] MEDS: Sodium Chloride 0.9% 1,000 ML IV SCH (18:17)
[2022-05-09 23:54] LABS: Vancomycin, Trough 16.7 ug/mL
[2022-05-10] MEDS: Lorazepam 2 MG/ML VIAL SLOW IVP PRN ×5 (00:14→13:34)
[2022-05-10] MEDS: VANCOMYCIN IVPB SCH ×2 (00:24→12:27)
[2022-05-10] MEDS: Vecuronium Bromide 50 MG in Sodium Chloride 0.9% 250 ML 250 ML IV SCH ×3 (02:08→21:28)
[2022-05-10] MEDS: Propofol 1,000 MG/100 ML VIAL IV PRN ×6 (02:35→21:28)
[2022-05-10] MEDS: Vecuronium 10 MG VIAL IVP PRN (03:30)
[2022-05-10 03:57] LABS: Actual Bicarbonate (HCO3a) 30.9 mEq/L (22-28); Base Excess (BEa) -1.5 mEq/L (-2.0 to +3.0); Calcium, Ionized (arterial) 1.24 mmol/L (1.12-1.30); Carboxyhemoglobin (COHb) 0.9 gm% (0.0-3.0); Hemoglobin (Hb) 13.7 g/dL (12.0-16.0); O2 Tension (PaO2), arterial 82.6 mmHg (80.0-100.0)
[2022-05-10 04:02] LABS: Puncture Site RRA; pH, Arterial 7.11 (7.35-7.45)
[2022-05-10] MEDS ORDERED: Magnesium Sulfate 3 GM in Sodium Chloride 0.9% 100 ML IVPB SCH (04:30)
[2022-05-10] MEDS: Cefepime 2 GM VIAL IVPB SCH ×3 (04:38→20:31)
[2022-05-10] MEDS: fentaNYL Citrate-0.9 % NaCl/PF 100 ML IV SCH ×2 (04:38→15:11)
[2022-05-10 06:16] LABS: ALT (SGPT) 61 U/L (8-55); AST (SGOT) 21 U/L (5-34); Albumin 3.4 g/dL (3.5-5.0); Alkaline Phosphatase 68 U/L (40-110); Anion Gap 15 mmol/L (10-20); BUN (Urea Nitrogen) 18 mg/dL (9.8-20.1); Bilirubin, Total Less than 0.2 mg/dL (0.2-1.2); Calc. Creatinine Clearance 121 mL/min (70-130); Calcium 8.2 mg/dL (7.8-10.44); Carbon Dioxide 25 mmol/L (22-29); Chloride 108 mmol/L (98-107); Globulin 3.1 g/dL (2.4-3.5); Glucose 156 mg/dL (70-105); Potassium 4.7 mmol/L (3.5-5.1); Protein, Total 6.5 g/dL (6.0-8.3); Sodium 143 mmol/L (136-145)
[2022-05-10] MEDS: methylPREDNISolone Sod Succ 40 MG VIAL IVP SCH ×3 (06:22→17:44)
[2022-05-10 06:25] LABS: Band 6 % (5-11); Hemoglobin 12.7 g/dL (12.0-16.0); Lymphocytes 8 % (21-51); MDiff Complete? YES; Mean Corpuscular HGB CONC 28.9 g/dL (32.0-36.0); Mean Corpuscular Hemoglobin 28.8 pg (27.0-31.0); Mean Corpuscular Volume 99.6 fL (78.0-98.0); Mean Platelet Volume 8.1 fL (7.4-10.4); Monocytes 7 % (0-10); Myelocyte 2 % (0-0); Neutrophil 77 % (42-75); Platelet Count 199 thou/uL (130-400); RBC Distribution Width 15.9 % (11.5-14.5); Red Blood Cell (RBC) Count 4.41 mill/uL (4.20-5.40); White Blood Cell (WBC) Count 20.2 thou/uL (4.8-10.8)
[2022-05-10 07:30] LABS: Actual Bicarbonate (HCO3a) 28.3 mEq/L (22-28); Calcium, Ionized (arterial) 1.21 mmol/L (1.12-1.30); Carboxyhemoglobin (COHb) 0.7 gm% (0.0-3.0); Hemoglobin (Hb) 12.8 g/dL (12.0-16.0); O2 Tension (PaO2), arterial 101.7 mmHg (80.0-100.0); Potassium - ABG Lab 4.15 mmol/L (3.70-5.30)
[2022-05-10 07:32] LABS: pH, Arterial 7.17 (7.35-7.45)
[2022-05-10 07:33] LABS: ALV-art Gradient 85.125 mmHg (0-20); CO2 Tension 78.7 mmHg (35.0-45.0); Puncture Site RRA
[2022-05-10] MEDS ORDERED: Racepinephrine 2.25% 0.5 ML NEB ONE (07:41)
[2022-05-10] MEDS ORDERED: Sodium Bicarb 50 MEQ/50 ML VIAL ONE (07:58)
[2022-05-10] MEDS ORDERED: Sodium Bicarb 50 MEQ/50 ML VIAL IVP SCH (08:10)
[2022-05-10] MEDS: Sodium Bicarbonate 100 MEQ in Dextrose 5% in Water 1,000 ML IV SCH ×2 (08:25→21:28)
[2022-05-10] MEDS: Enoxaparin Sodium 40 MG/0.4 ML SYRINGE SC SCH (09:26)
[2022-05-10] MEDS: Pantoprazole 40 MG VIAL IVP SCH (09:26)
[2022-05-10] MEDS: Azithromycin 500 MG in Sodium Chloride 0.9% 250 ML 250 ML IVPB SCH (09:26)
[2022-05-10] MEDS ORDERED: Furosemide 40 MG/4 ML VIAL FS SCH (10:00)
[2022-05-10] MEDS: AMINOPHYLLINE IVPB SCH ×2 (11:03→21:28)
[2022-05-10] MEDS: SODIUM CHLORIDE 0.9% IVPB SCH ×2 (11:03→21:28)
[2022-05-10 14:09] LABS: Anion Gap 16 mmol/L (10-20); BUN (Urea Nitrogen) 20 mg/dL (9.8-20.1); Calc. Creatinine Clearance 116 mL/min (70-130); Carbon Dioxide 27 mmol/L (22-29); Chloride 107 mmol/L (98-107); Glucose 171 mg/dL (70-105); Potassium 4.5 mmol/L (3.5-5.1); Sodium 145 mmol/L (136-145)
[2022-05-10] MEDS: Midazolam In 0.9 % NaCl/PF 100 ML IVPB SCH (15:44)
[2022-05-11] MEDS: VANCOMYCIN IVPB SCH ×2 (00:01→13:20)
[2022-05-11] MEDS: Propofol 1,000 MG/100 ML VIAL IV PRN ×6 (01:13→20:18)
[2022-05-11] MEDS: fentaNYL Citrate-0.9 % NaCl/PF 100 ML IV SCH ×3 (01:13→21:18)
[2022-05-11] MEDS: Cefepime 2 GM VIAL IVPB SCH ×2 (03:41→12:21)
[2022-05-11 04:23] LABS: ALT (SGPT) 65 U/L (8-55); AST (SGOT) 21 U/L (5-34); Albumin 3.4 g/dL (3.5-5.0); Alkaline Phosphatase 72 U/L (40-110); Anion Gap 10 mmol/L (10-20); BUN (Urea Nitrogen) 17 mg/dL (9.8-20.1); Bilirubin, Total 0.3 mg/dL (0.2-1.2); Calc. Creatinine Clearance 134 mL/min (70-130); Calcium 8.2 mg/dL (7.8-10.44); Carbon Dioxide 37 mmol/L (22-29); Chloride 103 mmol/L (98-107); Globulin 2.8 g/dL (2.4-3.5); Glucose 145 mg/dL (70-105); Potassium 3.7 mmol/L (3.5-5.1); Protein, Total 6.2 g/dL (6.0-8.3); Sodium 146 mmol/L (136-145)
[2022-05-11 04:26] LABS: Anisocytosis SLIGHT = 6-15 cells (100X) (0-5/hpf); Band 4 % (5-11); Hemoglobin 12.3 g/dL (12.0-16.0); Lymphocytes 1 % (21-51); MDiff Complete? YES; Macrocytosis SLIGHT = 6-15 cells (100X) (0-5/hpf); Mean Corpuscular HGB CONC 28.8 g/dL (32.0-36.0); Mean Corpuscular Hemoglobin 29.3 pg (27.0-31.0); Monocytes 8 % (0-10); Myelocyte 3 % (0-0); Neutrophil 84 % (42-75); Ovalocytes SLIGHT = 2-5 cells (100X) (0-1/hpf); Platelet Count 174 thou/uL (130-400); Platelet Morphology Comment Appears Adequate; Polychromasia SLIGHT = 2-3 cells (100X) (0-2/hpf); RBC Distribution Width 15.7 % (11.5-14.5); Stomatocytes MODERATE= 6-15 cells (100X) (0-1/hpf)
[2022-05-11 04:29] LABS: Magnesium 2.5 mg/dL (1.6-2.6)
[2022-05-11 04:50] LABS: Theophylline 12.2 mcg/mL (10.0-20.0)
[2022-05-11] MEDS: methylPREDNISolone Sod Succ 40 MG VIAL IVP SCH ×4 (05:24→17:42)
[2022-05-11] MEDS: Morphine 4 MG/ML VIAL SLOW IVP PRN (05:24)
[2022-05-11 07:37] LABS: Actual Bicarbonate (HCO3a) 41.1 mEq/L (22-28); Calcium, Ionized (arterial) 1.18 mmol/L (1.12-1.30); Carboxyhemoglobin (COHb) 1.1 gm% (0.0-3.0); Hemoglobin (Hb) 12.7 g/dL (12.0-16.0); O2 Tension (PaO2), arterial 72.5 mmHg (80.0-100.0); Potassium - ABG Lab 3.56 mmol/L (3.70-5.30)
[2022-05-11] MEDS ORDERED: Furosemide 40 MG/4 ML VIAL FS SCH (08:00)
[2022-05-11] MEDS ORDERED: Sodium Bicarb 50 MEQ/50 ML Abboject 8.4% SYRINGE IVP SCH (08:00)
[2022-05-11 08:01] LABS: CO2 Tension 121.5 mmHg (35.0-45.0); Puncture Site RRA; pH, Arterial 7.15 (7.35-7.45)
[2022-05-11 08:02] LABS: ALV-art Gradient 96.475 mmHg (0-20)
[2022-05-11] MEDS: Pantoprazole 40 MG VIAL IVP SCH (08:08)
[2022-05-11] MEDS: Enoxaparin Sodium 40 MG/0.4 ML SYRINGE SC SCH (08:08)
[2022-05-11] MEDS ORDERED: Sodium Bicarbonate 150 MEQ in Dextrose 5% in Water 1,000 ML IV SCH (08:45)
[2022-05-11] MEDS ORDERED: Magnesium 2 GM/50 ML(in water) 2 GM in Premix Bag 1 BAG IVPB SCH (08:45)
[2022-05-11] MEDS ORDERED: Polyethylene Glycol 3350 17 GM Packet PO SCH (09:15)
[2022-05-11] MEDS: Budesonide 0.5 MG/2 ML NEB NEB SCH ×8 (09:21→23:26)
[2022-05-11] MEDS: Vecuronium Bromide 50 MG in Sodium Chloride 0.9% 250 ML 250 ML IV SCH ×2 (09:38→23:15)
[2022-05-11] MEDS: Azithromycin 500 MG in Sodium Chloride 0.9% 250 ML 250 ML IVPB SCH (11:06)
[2022-05-11 11:25] LABS: Actual Bicarbonate (HCO3a) 44.3 mEq/L (22-28); Calcium, Ionized (arterial) 1.16 mmol/L (1.12-1.30); Carboxyhemoglobin (COHb) 0.7 gm% (0.0-3.0); Hemoglobin (Hb) 12.3 g/dL (12.0-16.0); O2 Tension (PaO2), arterial 73.4 mmHg (80.0-100.0); Potassium - ABG Lab 3.19 mmol/L (3.70-5.30)
[2022-05-11 11:32] LABS: ALV-art Gradient 132.325 mmHg (0-20); CO2 Tension 92.1 mmHg (35.0-45.0); Puncture Site RRA
[2022-05-11] MEDS: Sodium Bicarbonate 150 MEQ in Dextrose 5% in Water 1,000 ML IV SCH ×2 (12:21→23:14)
[2022-05-11] MEDS: Polyethylene Glycol 3350 17 GM Packet PO SCH (12:21)
[2022-05-11] MEDS: Midazolam In 0.9 % NaCl/PF 100 ML IVPB SCH (13:08)
[2022-05-11] MEDS ORDERED: Furosemide 40 MG/4 ML VIAL ONE (14:45)
[2022-05-11] MEDS ORDERED: diphenhydrAMINE 50 MG/ML VIAL ONE (14:56)
[2022-05-11] MEDS ORDERED: diphenhydrAMINE 50 MG/ML VIAL IVP SCH (15:15)
[2022-05-11] MEDS ORDERED: EPINEPHrine 1 MG/ML AMP IM SCH (15:15)
[2022-05-11] MEDS ORDERED: EPINEPHrine 4 MG in Dextrose 5% in Water 250 ML IV SCH (15:30)
[2022-05-11] MEDS: Senokot S 8.6-50 MG TAB PO SCH (20:18)
[2022-05-11] MEDS: Cefepime 2 GM in Sodium Chloride 0.9% 100 ML IVPB SCH (20:18)
[2022-05-11] MEDS: AMINOPHYLLINE IVPB SCH (23:15)
[2022-05-11] MEDS: SODIUM CHLORIDE 0.9% IVPB SCH (23:15)
[2022-05-12] MEDS: Propofol 1,000 MG/100 ML VIAL IV PRN ×6 (00:26→17:56)
[2022-05-12] MEDS: methylPREDNISolone Sod Succ 40 MG VIAL IVP SCH ×3 (01:15→16:44)
[2022-05-12] MEDS: Cefepime 2 GM in Sodium Chloride 0.9% 100 ML IVPB SCH ×3 (03:58→20:22)
[2022-05-12] MEDS: diphenhydrAMINE 50 MG/ML VIAL IVP PRN (04:32)
[2022-05-12] MEDS: Lorazepam 2 MG/ML VIAL SLOW IVP PRN ×2 (04:33→14:33)
[2022-05-12] MEDS: Budesonide 0.5 MG/2 ML NEB NEB SCH ×5 (05:00→21:00)
[2022-05-12 05:54] LABS: #Eosinphils 0.1 thou/uL (0.0-0.7); #Lymphocytes 0.4 thou/uL (1.20-3.40); #Monocytes 1.2 thou/uL (0.11-0.59); #Neutrophils 13.7 thou/uL (1.40-6.50); %Eosinophils 0.6 % (0.0-10.0); %Lymphocytes 2.7 % (21.0-51.0); %Monocytes 7.3 % (0.0-10.0); %Neutrophils 88.6 % (42.0-75.0); Hemoglobin 11.6 g/dL (12.0-16.0); Mean Corpuscular HGB CONC 28.4 g/dL (32.0-36.0); Mean Corpuscular Hemoglobin 28.7 pg (27.0-31.0); Mean Platelet Volume 8.5 fL (7.4-10.4); Platelet Count 163 thou/uL (130-400); RBC Distribution Width 14.8 % (11.5-14.5); Red Blood Cell (RBC) Count 4.04 mill/uL (4.20-5.40); White Blood Cell (WBC) Count 15.7 thou/uL (4.8-10.8)
[2022-05-12 06:51] LABS: ALT (SGPT) 70 U/L (8-55); AST (SGOT) 28 U/L (5-34); Albumin 3.3 g/dL (3.5-5.0); Alkaline Phosphatase 75 U/L (40-110); BUN (Urea Nitrogen) 24 mg/dL (9.8-20.1); Bilirubin, Total 0.3 mg/dL (0.2-1.2); Calc. Creatinine Clearance 155 mL/min (70-130); Calcium 8.4 mg/dL (7.8-10.44); Globulin 2.7 g/dL (2.4-3.5); Glucose 144 mg/dL (70-105)
[2022-05-12] MEDS: fentaNYL Citrate-0.9 % NaCl/PF 100 ML IV SCH ×2 (06:53→16:44)
[2022-05-12 07:00] LABS: Anion Gap 17 mmol/L (10-20); Chloride 92 mmol/L (98-107); Sodium 150 mmol/L (136-145)
[2022-05-12] MEDS ORDERED: Furosemide 20 MG/2 ML VIAL SLOW IVP SCH (07:00)
[2022-05-12 07:36] LABS: Actual Bicarbonate (HCO3a) 66.8 mEq/L (22-28); Calcium, Ionized (arterial) 1.09 mmol/L (1.12-1.30); Carboxyhemoglobin (COHb) 0.9 gm% (0.0-3.0); Hemoglobin (Hb) 12.4 g/dL (12.0-16.0); Potassium - ABG Lab 2.85 mmol/L (3.70-5.30); pH, Arterial 7.34 (7.35-7.45)
[2022-05-12 07:39] LABS: Carbon Dioxide 44 mmol/L (22-29); Potassium 2.9 mmol/L (3.5-5.1)
[2022-05-12 07:42] LABS: CO2 Tension 126.3 mmHg (35.0-45.0)
[2022-05-12 07:43] LABS: ALV-art Gradient 104.475 mmHg (0-20); Base Excess (BEa) 33.4 mEq/L (-2.0 to +3.0); O2 Tension (PaO2), arterial 58.5 mmHg (80.0-100.0); Puncture Site RRA
[2022-05-12] MEDS ORDERED: Magnesium 2 GM/50 ML(in water) 2 GM in Premix Bag 1 BAG IVPB SCH (08:00)
[2022-05-12] MEDS ORDERED: Electrolyte Replacement Protocol 1 EACH FS SCH (08:00)
[2022-05-12] MEDS: Pantoprazole 40 MG VIAL IVP SCH (08:03)
[2022-05-12] MEDS: Enoxaparin Sodium 40 MG/0.4 ML SYRINGE SC SCH (08:03)
[2022-05-12] MEDS: Azithromycin 500 MG in Sodium Chloride 0.9% 250 ML 250 ML IVPB SCH (08:04)
[2022-05-12] MEDS: Polyethylene Glycol 3350 17 GM Packet PO SCH (08:04)
[2022-05-12] MEDS: Midazolam In 0.9 % NaCl/PF 100 ML IVPB SCH (08:04)
[2022-05-12] MEDS: Senokot S 8.6-50 MG TAB PO SCH ×2 (08:04→20:23)
[2022-05-12] MEDS: Potassium Chloride 40 MEQ in Premix Bag 1 BAG IVPB SCH ×2 (11:02→13:20)
[2022-05-12] MEDS: Vecuronium Bromide 50 MG in Sodium Chloride 0.9% 250 ML 250 ML IV SCH ×2 (11:07→18:58)
[2022-05-12] MEDS: Sodium Bicarbonate 150 MEQ in Dextrose 5% in Water 1,000 ML IV SCH (14:48)
[2022-05-12] MEDS: Nystatin Ointment 15 GM TUBE TOP SCH ×2 (15:48→20:23)
[2022-05-12] MEDS: AMINOPHYLLINE IVPB SCH (18:58)
[2022-05-12] MEDS: SODIUM CHLORIDE 0.9% IVPB SCH (18:58)
[2022-05-12] MEDS ORDERED: EPINEPHrine 4 MG in Dextrose 5% in Water 250 ML IV SCH (22:30)
[2022-05-13] MEDS: methylPREDNISolone Sod Succ 40 MG VIAL IVP SCH ×4 (00:19→23:54)
[2022-05-13] MEDS: Propofol 1,000 MG/100 ML VIAL IV PRN ×8 (00:19→23:00)
[2022-05-13] MEDS: Midazolam In 0.9 % NaCl/PF 100 ML IVPB SCH ×2 (00:29→14:54)
[2022-05-13] MEDS: Budesonide 0.5 MG/2 ML NEB NEB SCH ×6 (00:48→18:26)
[2022-05-13] MEDS: Sodium Bicarbonate 150 MEQ in Dextrose 5% in Water 1,000 ML IV SCH ×2 (02:35→18:37)
[2022-05-13] MEDS: fentaNYL Citrate-0.9 % NaCl/PF 100 ML IV SCH ×3 (02:36→20:02)
[2022-05-13] MEDS: Cefepime 2 GM in Sodium Chloride 0.9% 100 ML IVPB SCH ×3 (03:12→20:20)
[2022-05-13 04:53] LABS: ALT (SGPT) 73 U/L (8-55); AST (SGOT) 28 U/L (5-34); Albumin 3.3 g/dL (3.5-5.0); Alkaline Phosphatase 70 U/L (40-110); BUN (Urea Nitrogen) 28 mg/dL (9.8-20.1); Bilirubin, Total 0.3 mg/dL (0.2-1.2); Calc. Creatinine Clearance 158 mL/min (70-130); Calcium 8.3 mg/dL (7.8-10.44); Globulin 2.8 g/dL (2.4-3.5); Glucose 150 mg/dL (70-105); Magnesium 2.5 mg/dL (1.6-2.6); Protein, Total 6.1 g/dL (6.0-8.3); Theophylline 17.3 mcg/mL (10.0-20.0)
[2022-05-13 05:03] LABS: Anion Gap 17 mmol/L (10-20); Chloride 88 mmol/L (98-107); Potassium 3.8 mmol/L (3.5-5.1); Sodium 149 mmol/L (136-145)
[2022-05-13 05:05] LABS: Carbon Dioxide 48 mmol/L (22-29)
[2022-05-13 05:17] LABS: #Eosinphils 0.1 thou/uL (0.0-0.7); #Lymphocytes 0.5 thou/uL (1.20-3.40); #Monocytes 1.4 thou/uL (0.11-0.59); #Neutrophils 14.8 thou/uL (1.40-6.50); %Eosinophils 0.5 % (0.0-10.0); %Lymphocytes 2.8 % (21.0-51.0); %Monocytes 8.3 % (0.0-10.0); %Neutrophils 88.5 % (42.0-75.0); Anisocytosis SLIGHT = 6-15 cells (100X) (0-5/hpf); Band 1 % (5-11); Hemoglobin 11.7 g/dL (12.0-16.0); Hypochromia SLIGHT = 6-15 cells (100X) (0-5/hpf); Lymphocytes 4 % (21-51); MDiff Complete? YES; Macrocytosis MODERATE=16-30 cells (100X) (0-5/hpf); Mean Corpuscular HGB CONC 28.4 g/dL (32.0-36.0); Mean Corpuscular Hemoglobin 28.6 pg (27.0-31.0); Mean Platelet Volume 8.4 fL (7.4-10.4); Monocytes 7 % (0-10); Myelocyte 2 % (0-0); Neutrophil 86 % (42-75); Ovalocytes SLIGHT = 2-5 cells (100X) (0-1/hpf); Platelet Count 165 thou/uL (130-400); Platelet Morphology Comment Appears Adequate; Polychromasia SLIGHT = 2-3 cells (100X) (0-2/hpf); RBC Distribution Width 14.9 % (11.5-14.5); Reflex for Review?? NO; Stomatocytes SLIGHT = 2-5 cells (100X) (0-1/hpf); White Blood Cell (WBC) Count 16.8 thou/uL (4.8-10.8)
[2022-05-13 07:27] LABS: Actual Bicarbonate (HCO3a) 61.9 mEq/L (22-28); Base Excess (BEa) 29.2 mEq/L (-2.0 to +3.0); Calcium, Ionized (arterial) 1.09 mmol/L (1.12-1.30); Carboxyhemoglobin (COHb) 0.6 gm% (0.0-3.0); Hemoglobin (Hb) 12.1 g/dL (12.0-16.0); O2 Tension (PaO2), arterial 73.6 mmHg (80.0-100.0); Potassium - ABG Lab 3.77 mmol/L (3.70-5.30); pH, Arterial 7.32 (7.35-7.45)
[2022-05-13 07:37] LABS: Puncture Site RRA
[2022-05-13] MEDS: Polyethylene Glycol 3350 17 GM Packet PO SCH (08:59)
[2022-05-13] MEDS: Vecuronium Bromide 50 MG in Sodium Chloride 0.9% 250 ML 250 ML IV SCH ×2 (08:59→16:36)
[2022-05-13] MEDS ORDERED: acetaZOLAMIDE Sodium 500 mg Vial IVP SCH ×2 (09:00→10:30)
[2022-05-13] MEDS: Enoxaparin Sodium 40 MG/0.4 ML SYRINGE SC SCH (09:00)
[2022-05-13] MEDS: Azithromycin 500 MG in Sodium Chloride 0.9% 250 ML 250 ML IVPB SCH (09:00)
[2022-05-13] MEDS: Senokot S 8.6-50 MG TAB PO SCH ×2 (09:00→20:21)
[2022-05-13] MEDS: Nystatin Ointment 15 GM TUBE TOP SCH ×2 (09:04→20:21)
[2022-05-13] MEDS ORDERED: Pantoprazole 40 MG VIAL IVP SCH (10:15)
[2022-05-13] MEDS: Pantoprazole 40 MG VIAL IVP SCH (10:16)
[2022-05-13] MEDS: Furosemide 40 MG/4 ML VIAL SLOW IVP SCH (10:17)
[2022-05-13] MEDS: Lorazepam 2 MG/ML VIAL SLOW IVP PRN (12:01)
[2022-05-14] MEDS: Budesonide 0.5 MG/2 ML NEB NEB SCH ×9 (00:07→23:33)
[2022-05-14] MEDS: Vecuronium Bromide 50 MG in Sodium Chloride 0.9% 250 ML 250 ML IV SCH ×4 (00:13→22:23)
[2022-05-14] MEDS: SODIUM CHLORIDE 0.9% IVPB SCH ×2 (00:14→22:23)
[2022-05-14] MEDS: AMINOPHYLLINE IVPB SCH ×2 (00:14→22:23)
[2022-05-14] MEDS: Cefepime 2 GM in Sodium Chloride 0.9% 100 ML IVPB SCH ×3 (04:00→20:50)
[2022-05-14 04:40] LABS: ALT (SGPT) 64 U/L (8-55); AST (SGOT) 19 U/L (5-34); Albumin 3.3 g/dL (3.5-5.0); Alkaline Phosphatase 61 U/L (40-110); BUN (Urea Nitrogen) 31 mg/dL (9.8-20.1); Bilirubin, Total 0.3 mg/dL (0.2-1.2); Calc. Creatinine Clearance 153 mL/min (70-130); Calcium 8.8 mg/dL (7.8-10.44); Globulin 2.6 g/dL (2.4-3.5); Glucose 148 mg/dL (70-105); Protein, Total 5.9 g/dL (6.0-8.3)
[2022-05-14 04:43] LABS: Magnesium 2.1 mg/dL (1.6-2.6); Theophylline 15.3 mcg/mL (10.0-20.0)
[2022-05-14 04:46] LABS: Band 12 % (5-11); Hemoglobin 11.2 g/dL (12.0-16.0); Lymphocytes 3 % (21-51); MDiff Complete? YES; Mean Corpuscular HGB CONC 28.6 g/dL (32.0-36.0); Mean Corpuscular Hemoglobin 28.8 pg (27.0-31.0); Mean Platelet Volume 8.2 fL (7.4-10.4); Monocytes 15 % (0-10); Neutrophil 70 % (42-75); Platelet Count 163 thou/uL (130-400); Platelet Morphology Comment Appears Adequate; RBC Distribution Width 14.5 % (11.5-14.5); RBC Morphology Normal; White Blood Cell (WBC) Count 14.7 thou/uL (4.8-10.8)
[2022-05-14 04:50] LABS: Anion Gap 13 mmol/L (10-20); Chloride 93 mmol/L (98-107); Potassium 4.3 mmol/L (3.5-5.1); Sodium 147 mmol/L (136-145)
[2022-05-14 04:56] LABS: Carbon Dioxide 45 mmol/L (22-29)
[2022-05-14] MEDS: Midazolam In 0.9 % NaCl/PF 100 ML IVPB SCH ×2 (05:40→20:10)
[2022-05-14] MEDS: methylPREDNISolone Sod Succ 40 MG VIAL IVP SCH ×4 (05:55→22:23)
[2022-05-14] MEDS: Propofol 1,000 MG/100 ML VIAL IV PRN ×5 (05:58→22:24)
[2022-05-14] MEDS: fentaNYL Citrate-0.9 % NaCl/PF 100 ML IV SCH ×2 (05:59→16:15)
[2022-05-14 07:20] LABS: Actual Bicarbonate (HCO3a) 50.2 mEq/L (22-28); Base Excess (BEa) 18.7 mEq/L (-2.0 to +3.0); Calcium, Ionized (arterial) 1.14 mmol/L (1.12-1.30); Carboxyhemoglobin (COHb) 0.7 gm% (0.0-3.0); Hemoglobin (Hb) 12.5 g/dL (12.0-16.0); O2 Tension (PaO2), arterial 98.8 mmHg (80.0-100.0); Potassium - ABG Lab 4.13 mmol/L (3.70-5.30)
[2022-05-14 07:30] LABS: CO2 Tension 105.6 mmHg (35.0-45.0); Puncture Site RRA
[2022-05-14] MEDS: Sodium Bicarbonate 150 MEQ in Dextrose 5% in Water 1,000 ML IV SCH ×2 (08:58→22:23)
[2022-05-14] MEDS ORDERED: acetaZOLAMIDE Sodium 500 mg Vial IVP SCH (09:00)
[2022-05-14] MEDS: Senokot S 8.6-50 MG TAB PO SCH ×2 (10:00→20:50)
[2022-05-14] MEDS: Furosemide 40 MG/4 ML VIAL SLOW IVP SCH (10:11)
[2022-05-14] MEDS: Pantoprazole 40 MG VIAL IVP SCH (10:11)
[2022-05-14] MEDS: Enoxaparin Sodium 40 MG/0.4 ML SYRINGE SC SCH (10:15)
[2022-05-14] MEDS: Polyethylene Glycol 3350 17 GM Packet PO SCH (10:15)
[2022-05-14] MEDS: Nystatin Ointment 15 GM TUBE TOP SCH ×2 (10:17→20:50)
[2022-05-14 22:08] LABS: SARS-CoV-2 IgG Spike Ab Interp Non-Reactive (NonReactive); SARS-CoV-2 IgG Spike Conc/Indx 37.8 AU/mL (0.00-50.0)
[2022-05-15] MEDS: fentaNYL Citrate-0.9 % NaCl/PF 100 ML IV SCH ×3 (01:36→20:37)
[2022-05-15] MEDS: Propofol 1,000 MG/100 ML VIAL IV PRN ×5 (02:07→20:38)
[2022-05-15] MEDS: Budesonide 0.5 MG/2 ML NEB NEB SCH ×5 (03:50→21:27)
[2022-05-15 04:33] LABS: #Eosinphils 0.1 thou/uL (0.0-0.7); #Lymphocytes 1.4 thou/uL (1.20-3.40); #Neutrophils 14.6 thou/uL (1.40-6.50); %Basophils 0.1 % (0.0-1.0); %Eosinophils 0.6 % (0.0-10.0); %Lymphocytes 7.6 % (21.0-51.0); %Monocytes 11.1 % (0.0-10.0); %Neutrophils 80.6 % (42.0-75.0); Mean Corpuscular HGB CONC 29.1 g/dL (32.0-36.0); Mean Corpuscular Hemoglobin 29.1 pg (27.0-31.0); Mean Platelet Volume 8.1 fL (7.4-10.4); Platelet Count 156 thou/uL (130-400); RBC Distribution Width 14.4 % (11.5-14.5); Red Blood Cell (RBC) Count 3.78 mill/uL (4.20-5.40); White Blood Cell (WBC) Count 18.1 thou/uL (4.8-10.8)
[2022-05-15 04:46] LABS: ALT (SGPT) 47 U/L (8-55); AST (SGOT) 17 U/L (5-34); Albumin 3.2 g/dL (3.5-5.0); Alkaline Phosphatase 56 U/L (40-110); BUN (Urea Nitrogen) 28 mg/dL (9.8-20.1); Bilirubin, Total 0.3 mg/dL (0.2-1.2); Calc. Creatinine Clearance 162 mL/min (70-130); Calcium 9.2 mg/dL (7.8-10.44); Globulin 2.6 g/dL (2.4-3.5); Glucose 112 mg/dL (70-105); Protein, Total 5.8 g/dL (6.0-8.3)
[2022-05-15 04:55] LABS: Anion Gap 15 mmol/L (10-20); Chloride 94 mmol/L (98-107); Potassium 3.9 mmol/L (3.5-5.1); Sodium 146 mmol/L (136-145)
[2022-05-15 04:59] LABS: Carbon Dioxide 41 mmol/L (22-29)
[2022-05-15] MEDS: methylPREDNISolone Sod Succ 40 MG VIAL IVP SCH ×4 (05:09→23:55)
[2022-05-15 06:57] LABS: Actual Bicarbonate (HCO3a) 48.8 mEq/L (22-28); Base Excess (BEa) 18.8 mEq/L (-2.0 to +3.0); Calcium, Ionized (arterial) 1.21 mmol/L (1.12-1.30); Carboxyhemoglobin (COHb) 0.5 gm% (0.0-3.0); O2 Tension (PaO2), arterial 94.2 mmHg (80.0-100.0); Potassium - ABG Lab 3.59 mmol/L (3.70-5.30); pH, Arterial 7.34 (7.35-7.45)
[2022-05-15 07:06] LABS: CO2 Tension 92.4 mmHg (35.0-45.0); Puncture Site LBA
[2022-05-15] MEDS: Furosemide 40 MG/4 ML VIAL SLOW IVP SCH (09:56)
[2022-05-15] MEDS: Pantoprazole 40 MG VIAL IVP SCH (09:57)
[2022-05-15] MEDS: Enoxaparin Sodium 40 MG/0.4 ML SYRINGE SC SCH (09:57)
[2022-05-15] MEDS: Nystatin Ointment 15 GM TUBE TOP SCH ×2 (09:58→20:52)
[2022-05-15] MEDS: Senokot S 8.6-50 MG TAB PO SCH ×2 (10:24→20:52)
[2022-05-15] MEDS: Polyethylene Glycol 3350 17 GM Packet PO SCH (11:43)
[2022-05-15] MEDS: Midazolam In 0.9 % NaCl/PF 100 ML IVPB SCH ×2 (12:53→23:56)
[2022-05-16] MEDS: Propofol 1,000 MG/100 ML VIAL IV PRN ×7 (01:48→22:10)
[2022-05-16] MEDS: Budesonide 0.5 MG/2 ML NEB NEB SCH ×6 (01:55→21:30)
[2022-05-16] MEDS: hydrALAZINE 20 MG/ML VIAL SLOW IVP PRN (02:40)
[2022-05-16] MEDS: Lorazepam 2 MG/ML VIAL SLOW IVP PRN ×3 (03:34→09:32)
[2022-05-16] MEDS: Vecuronium 10 MG VIAL IVP PRN ×2 (03:35→04:55)
[2022-05-16] MEDS: Morphine 4 MG/ML VIAL SLOW IVP PRN (03:57)
[2022-05-16] MEDS: diphenhydrAMINE 50 MG/ML VIAL IVP PRN (04:22)
[2022-05-16] MEDS: methylPREDNISolone Sod Succ 40 MG VIAL IVP SCH ×4 (04:55→23:52)
[2022-05-16 05:14] LABS: ALT (SGPT) 85 U/L (8-55); AST (SGOT) 64 U/L (5-34); Albumin 3.8 g/dL (3.5-5.0); Alkaline Phosphatase 86 U/L (40-110); BUN (Urea Nitrogen) 34 mg/dL (9.8-20.1); Band 16 % (5-11); Bilirubin, Total 0.6 mg/dL (0.2-1.2); Calc. Creatinine Clearance 165 mL/min (70-130); Calcium 9.9 mg/dL (7.8-10.44); Estimated GFR 110; Globulin 3.2 g/dL (2.4-3.5); Glucose 144 mg/dL (70-105); Hemoglobin 13.2 g/dL (12.0-16.0); Lymphocytes 3 % (21-51); MDiff Complete? YES; Mean Corpuscular HGB CONC 29.5 g/dL (32.0-36.0); Mean Corpuscular Hemoglobin 29.2 pg (27.0-31.0); Mean Platelet Volume 8.4 fL (7.4-10.4); Monocytes 9 % (0-10); Neutrophil 71 % (42-75); Platelet Count 198 thou/uL (130-400); Platelet Morphology Comment Appears Adequate; RBC Morphology Normal; Reactive Lymphocytes 1 % (0-10); Red Blood Cell (RBC) Count 4.51 mill/uL (4.20-5.40); White Blood Cell (WBC) Count 24.3 thou/uL (4.8-10.8)
[2022-05-16 05:51] LABS: Chloride 93 mmol/L (98-107); Potassium 4.7 mmol/L (3.5-5.1); Sodium 147 mmol/L (136-145)
[2022-05-16 06:12] LABS: Carbon Dioxide 39 mmol/L (22-29)
[2022-05-16 06:24] LABS: Anion Gap 20 mmol/L (10-20)
[2022-05-16] MEDS: fentaNYL Citrate-0.9 % NaCl/PF 100 ML IV SCH ×2 (07:28→17:27)
[2022-05-16 07:31] LABS: Actual Bicarbonate (HCO3a) 45.5 mEq/L (22-28); Base Excess (BEa) 14.3 mEq/L (-2.0 to +3.0); Calcium, Ionized (arterial) 1.23 mmol/L (1.12-1.30); Carboxyhemoglobin (COHb) 0.3 gm% (0.0-3.0); Hemoglobin (Hb) 13.7 g/dL (12.0-16.0); O2 Tension (PaO2), arterial 77.2 mmHg (80.0-100.0); Potassium - ABG Lab 4.35 mmol/L (3.70-5.30); pH, Arterial 7.29 (7.35-7.45)
[2022-05-16 07:59] LABS: ALV-art Gradient 193.575 mmHg (0-20); CO2 Tension 97.1 mmHg (35.0-45.0); Puncture Site RRA
[2022-05-16] MEDS: Pantoprazole 40 MG VIAL IVP SCH (09:31)
[2022-05-16] MEDS: Montelukast Sodium 10 mg Tablet PO SCH (09:31)
[2022-05-16] MEDS: Enoxaparin Sodium 40 MG/0.4 ML SYRINGE SC SCH (09:32)
[2022-05-16] MEDS: Nystatin Ointment 15 GM TUBE TOP SCH ×2 (09:41→20:50)
[2022-05-16] MEDS: Polyethylene Glycol 3350 17 GM Packet PO SCH (09:46)
[2022-05-16] MEDS: Senokot S 8.6-50 MG TAB PO SCH ×2 (09:47→20:50)
[2022-05-16] MEDS: Midazolam In 0.9 % NaCl/PF 100 ML IVPB SCH ×2 (13:28→22:10)
[2022-05-17] MEDS: Budesonide 0.5 MG/2 ML NEB NEB SCH ×6 (01:30→18:53)
[2022-05-17] MEDS: Propofol 1,000 MG/100 ML VIAL IV PRN ×6 (02:14→22:56)
[2022-05-17] MEDS: fentaNYL Citrate-0.9 % NaCl/PF 100 ML IV SCH ×3 (03:05→23:59)
[2022-05-17 04:49] LABS: #Basophils 0.1 thou/uL (0.0-0.2); #Eosinphils 0.1 thou/uL (0.0-0.7); #Lymphocytes 0.8 thou/uL (1.20-3.40); #Monocytes 1.4 thou/uL (0.11-0.59); #Neutrophils 14.5 thou/uL (1.40-6.50); %Basophils 0.4 % (0.0-1.0); %Eosinophils 0.3 % (0.0-10.0); %Lymphocytes 4.6 % (21.0-51.0); %Monocytes 8.1 % (0.0-10.0); %Neutrophils 86.6 % (42.0-75.0); Hemoglobin 11.8 g/dL (12.0-16.0); Mean Corpuscular HGB CONC 29.2 g/dL (32.0-36.0); Mean Corpuscular Hemoglobin 28.5 pg (27.0-31.0); Mean Corpuscular Volume 97.6 fL (78.0-98.0); Mean Platelet Volume 8.5 fL (7.4-10.4); Platelet Count 149 thou/uL (130-400); RBC Distribution Width 15.5 % (11.5-14.5); Red Blood Cell (RBC) Count 4.14 mill/uL (4.20-5.40); White Blood Cell (WBC) Count 16.7 thou/uL (4.8-10.8)
[2022-05-17 04:59] LABS: ALT (SGPT) 59 U/L (8-55); AST (SGOT) 30 U/L (5-34); Albumin 3.3 g/dL (3.5-5.0); Alkaline Phosphatase 66 U/L (40-110); BUN (Urea Nitrogen) 38 mg/dL (9.8-20.1); Bilirubin, Total 0.3 mg/dL (0.2-1.2); Calc. Creatinine Clearance 168 mL/min (70-130); Calcium 9.3 mg/dL (7.8-10.44); Estimated GFR 111; Globulin 2.6 g/dL (2.4-3.5); Glucose 120 mg/dL (70-105); Protein, Total 5.9 g/dL (6.0-8.3)
[2022-05-17 05:08] LABS: Anion Gap 17 mmol/L (10-20); Carbon Dioxide 39 mmol/L (22-29); Chloride 94 mmol/L (98-107); Potassium 4.5 mmol/L (3.5-5.1); Sodium 145 mmol/L (136-145)
[2022-05-17] MEDS: methylPREDNISolone Sod Succ 40 MG VIAL IVP SCH ×4 (05:31→23:33)
[2022-05-17 07:35] LABS: Actual Bicarbonate (HCO3a) 43.8 mEq/L (22-28); Base Excess (BEa) 16.2 mEq/L (-2.0 to +3.0); Calcium, Ionized (arterial) 1.18 mmol/L (1.12-1.30); Carboxyhemoglobin (COHb) 0.7 gm% (0.0-3.0); Hemoglobin (Hb) 13.1 g/dL (12.0-16.0); O2 Tension (PaO2), arterial 76.9 mmHg (80.0-100.0); Potassium - ABG Lab 4.45 mmol/L (3.70-5.30); pH, Arterial 7.43 (7.35-7.45)
[2022-05-17 07:39] LABS: CO2 Tension 67.7 mmHg (35.0-45.0); Puncture Site RRA
[2022-05-17 07:40] LABS: ALV-art Gradient 123.675 mmHg (0-20)
[2022-05-17] MEDS: Senokot S 8.6-50 MG TAB PO SCH ×2 (09:25→20:30)
[2022-05-17] MEDS: Enoxaparin Sodium 40 MG/0.4 ML SYRINGE SC SCH (09:25)
[2022-05-17] MEDS: Montelukast Sodium 10 mg Tablet PO SCH (09:25)
[2022-05-17] MEDS: Nystatin Ointment 15 GM TUBE TOP SCH ×2 (09:26→20:30)
[2022-05-17] MEDS: Midazolam In 0.9 % NaCl/PF 100 ML IVPB SCH ×2 (09:26→19:23)
[2022-05-17] MEDS: Polyethylene Glycol 3350 17 GM Packet PO SCH (09:26)
[2022-05-17] MEDS: Pantoprazole 40 MG VIAL IVP SCH (09:26)
[2022-05-18] MEDS: Budesonide 0.5 MG/2 ML NEB NEB SCH ×7 (01:29→22:36)
[2022-05-18] MEDS: Propofol 1,000 MG/100 ML VIAL IV PRN ×7 (02:07→21:41)
[2022-05-18] MEDS: methylPREDNISolone Sod Succ 40 MG VIAL IVP SCH ×3 (04:31→16:57)
[2022-05-18 05:21] LABS: ALT (SGPT) 49 U/L (8-55); AST (SGOT) 38 U/L (5-34); Albumin 3.2 g/dL (3.5-5.0); Alkaline Phosphatase 60 U/L (40-110); BUN (Urea Nitrogen) 33 mg/dL (9.8-20.1); Bilirubin, Total 0.3 mg/dL (0.2-1.2); Calc. Creatinine Clearance 179 mL/min (70-130); Calcium 9.1 mg/dL (7.8-10.44); Estimated GFR 113; Globulin 2.5 g/dL (2.4-3.5); Glucose 106 mg/dL (70-105); Protein, Total 5.7 g/dL (6.0-8.3)
[2022-05-18 05:29] LABS: Anion Gap 16 mmol/L (10-20); Carbon Dioxide 36 mmol/L (22-29); Chloride 96 mmol/L (98-107); Potassium 4.9 mmol/L (3.5-5.1); Sodium 143 mmol/L (136-145)
[2022-05-18 05:31] LABS: Hemoglobin 11.6 g/dL (12.0-16.0); Mean Corpuscular HGB CONC 30.7 g/dL (32.0-36.0); Mean Corpuscular Hemoglobin 29.3 pg (27.0-31.0); Mean Corpuscular Volume 95.2 fL (78.0-98.0); Mean Platelet Volume 9.2 fL (7.4-10.4); Platelet Count 142 thou/uL (130-400); RBC Distribution Width 15.2 % (11.5-14.5); Red Blood Cell (RBC) Count 3.95 mill/uL (4.20-5.40); White Blood Cell (WBC) Count 16.6 thou/uL (4.8-10.8)
[2022-05-18 06:05] LABS: Band 12 % (5-11); Lymphocytes 9 % (21-51); MDiff Complete? YES; Monocytes 13 % (0-10); Neutrophil 66 % (42-75)
[2022-05-18] MEDS: Midazolam In 0.9 % NaCl/PF 100 ML IVPB SCH (07:41)
[2022-05-18 07:48] LABS: Actual Bicarbonate (HCO3a) 38.7 mEq/L (22-28); Base Excess (BEa) 12.3 mEq/L (-2.0 to +3.0); CO2 Tension 58.4 mmHg (35.0-45.0); Carboxyhemoglobin (COHb) 0.3 gm% (0.0-3.0); Hemoglobin (Hb) 12.2 g/dL (12.0-16.0); O2 Tension (PaO2), arterial 105.7 mmHg (80.0-100.0); Potassium - ABG Lab 4.76 mmol/L (3.70-5.30); pH, Arterial 7.44 (7.35-7.45)
[2022-05-18 07:57] LABS: Puncture Site RRA
[2022-05-18] MEDS: Enoxaparin Sodium 40 MG/0.4 ML SYRINGE SC SCH (08:51)
[2022-05-18] MEDS: Polyethylene Glycol 3350 17 GM Packet PO SCH (08:51)
[2022-05-18] MEDS: Montelukast Sodium 10 mg Tablet PO SCH (08:51)
[2022-05-18] MEDS: Nystatin Ointment 15 GM TUBE TOP SCH ×2 (08:52→21:45)
[2022-05-18] MEDS: Pantoprazole 40 MG VIAL IVP SCH (08:52)
[2022-05-18] MEDS: Senokot S 8.6-50 MG TAB PO SCH ×2 (08:52→21:41)
[2022-05-18] MEDS ORDERED: Fentanyl BOLUS 250 ML IVPB PRN (09:00)
[2022-05-18] MEDS ORDERED: Lorazepam 2 MG/ML VIAL SLOW IVP PRN (09:02)
[2022-05-18] MEDS ORDERED: Morphine 4 MG/ML VIAL SLOW IVP PRN (09:02)
[2022-05-18] MEDS ORDERED: fentaNYL Citrate-0.9 % NaCl/PF 100 ML IV SCH (09:15)
[2022-05-18] MEDS: Fentanyl CADD 100 ML IV SCH (19:52)
[2022-05-19] MEDS: methylPREDNISolone Sod Succ 40 MG VIAL IVP SCH ×4 (00:15→17:43)
[2022-05-19] MEDS: Propofol 1,000 MG/100 ML VIAL IV PRN ×5 (01:01→17:43)
[2022-05-19] MEDS: Midazolam In 0.9 % NaCl/PF 100 ML IVPB SCH (03:35)
[2022-05-19 04:27] LABS: ALT (SGPT) 60 U/L (8-55); AST (SGOT) 61 U/L (5-34); Albumin 3.2 g/dL (3.5-5.0); Alkaline Phosphatase 65 U/L (40-110); BUN (Urea Nitrogen) 30 mg/dL (9.8-20.1); Bilirubin, Total 0.4 mg/dL (0.2-1.2); Calc. Creatinine Clearance 176 mL/min (70-130); Calcium 9.1 mg/dL (7.8-10.44); Estimated GFR 113; Globulin 2.7 g/dL (2.4-3.5); Glucose 123 mg/dL (70-105); Protein, Total 5.9 g/dL (6.0-8.3)
[2022-05-19 04:35] LABS: Band 4 % (5-11); Hemoglobin 12.1 g/dL (12.0-16.0); Lymphocytes 1 % (21-51); MDiff Complete? YES; Mean Corpuscular HGB CONC 29.5 g/dL (32.0-36.0); Mean Corpuscular Hemoglobin 28.7 pg (27.0-31.0); Mean Corpuscular Volume 97.3 fL (78.0-98.0); Monocytes 10 % (0-10); Myelocyte 1 % (0-0); Neutrophil 84 % (42-75); Platelet Count 130 thou/uL (130-400); RBC Distribution Width 15.5 % (11.5-14.5); Red Blood Cell (RBC) Count 4.23 mill/uL (4.20-5.40); White Blood Cell (WBC) Count 18.6 thou/uL (4.8-10.8)
[2022-05-19 04:36] LABS: Anion Gap 16 mmol/L (10-20); Carbon Dioxide 35 mmol/L (22-29); Chloride 97 mmol/L (98-107); Sodium 143 mmol/L (136-145)
[2022-05-19] MEDS ORDERED: Fentanyl CADD 100 ML ONE ×2 (04:37→15:16)
[2022-05-19] MEDS: Fentanyl CADD 100 ML IV SCH ×2 (04:49→15:15)
[2022-05-19] MEDS: Budesonide 0.5 MG/2 ML NEB NEB SCH ×6 (05:15→22:14)
[2022-05-19 07:21] LABS: Actual Bicarbonate (HCO3a) 43.7 mEq/L (22-28); Base Excess (BEa) 14.7 mEq/L (-2.0 to +3.0); Calcium, Ionized (arterial) 1.23 mmol/L (1.12-1.30); Carboxyhemoglobin (COHb) 0.9 gm% (0.0-3.0); Hemoglobin (Hb) 13.7 g/dL (12.0-16.0); O2 Tension (PaO2), arterial 83.1 mmHg (80.0-100.0); Potassium - ABG Lab 4.66 mmol/L (3.70-5.30); pH, Arterial 7.37 (7.35-7.45)
[2022-05-19] MEDS: Pantoprazole 40 MG VIAL IVP SCH (09:29)
[2022-05-19] MEDS: Enoxaparin Sodium 40 MG/0.4 ML SYRINGE SC SCH (09:29)
[2022-05-19] MEDS: Polyethylene Glycol 3350 17 GM Packet PO SCH (09:30)
[2022-05-19] MEDS: Montelukast Sodium 10 mg Tablet PO SCH (09:30)
[2022-05-19] MEDS: Nystatin Ointment 15 GM TUBE TOP SCH ×2 (09:31→21:09)
[2022-05-19] MEDS: Senokot S 8.6-50 MG TAB PO SCH ×2 (09:31→21:09)
[2022-05-19 11:52] LABS: CO2 Tension 77.2 mmHg (35.0-45.0); Puncture Site RRA
[2022-05-19] MEDS: hydrALAZINE 20 MG/ML VIAL SLOW IVP PRN (17:48)
[2022-05-19] MEDS: Vecuronium 10 MG VIAL IVP PRN (21:14)
[2022-05-20] MEDS: Propofol 1,000 MG/100 ML VIAL IV PRN ×6 (00:23→21:02)
[2022-05-20] MEDS: methylPREDNISolone Sod Succ 40 MG VIAL IVP SCH ×4 (00:23→21:07)
[2022-05-20] MEDS: Fentanyl CADD 100 ML IV SCH ×3 (01:33→20:25)
[2022-05-20] MEDS: Vecuronium 10 MG VIAL IVP PRN ×4 (03:26→21:12)
[2022-05-20] MEDS: Midazolam In 0.9 % NaCl/PF 100 ML IVPB SCH (03:26)
[2022-05-20] MEDS: Budesonide 0.5 MG/2 ML NEB NEB SCH ×5 (04:08→21:25)
[2022-05-20 04:20] LABS: ALT (SGPT) 83 U/L (8-55); AST (SGOT) 77 U/L (5-34); Albumin 3.5 g/dL (3.5-5.0); Alkaline Phosphatase 82 U/L (40-110); BUN (Urea Nitrogen) 30 mg/dL (9.8-20.1); Bilirubin, Total 0.5 mg/dL (0.2-1.2); Calc. Creatinine Clearance 176 mL/min (70-130); Calcium 9.2 mg/dL (7.8-10.44); Estimated GFR 113; Globulin 2.9 g/dL (2.4-3.5); Glucose 139 mg/dL (70-105); Protein, Total 6.4 g/dL (6.0-8.3)
[2022-05-20] MEDS: hydrALAZINE 20 MG/ML VIAL SLOW IVP PRN (04:22)
[2022-05-20 04:30] LABS: Anion Gap 16 mmol/L (10-20); Carbon Dioxide 36 mmol/L (22-29); Chloride 97 mmol/L (98-107); Potassium 4.4 mmol/L (3.5-5.1); Sodium 145 mmol/L (136-145)
[2022-05-20 04:35] LABS: Hemoglobin 13.5 g/dL (12.0-16.0); Mean Corpuscular HGB CONC 30.9 g/dL (32.0-36.0); Mean Corpuscular Hemoglobin 29.7 pg (27.0-31.0); Mean Corpuscular Volume 96.2 fL (78.0-98.0); Mean Platelet Volume 9.1 fL (7.4-10.4); Platelet Count 143 thou/uL (130-400); RBC Distribution Width 15.7 % (11.5-14.5); Red Blood Cell (RBC) Count 4.54 mill/uL (4.20-5.40)
[2022-05-20] MEDS ORDERED: Sterile Water 10 ML ONE (04:55)
[2022-05-20 06:26] LABS: Band 17 % (5-11); Lymphocytes 1 % (21-51); MDiff Complete? YES; Monocytes 12 % (0-10); Neutrophil 70 % (42-75)
[2022-05-20] MEDS: diphenhydrAMINE 50 MG/ML VIAL IVP PRN (07:57)
[2022-05-20 08:18] LABS: Actual Bicarbonate (HCO3a) 39.8 mEq/L (22-28); Base Excess (BEa) 7.1 mEq/L (-2.0 to +3.0); Calcium, Ionized (arterial) 1.27 mmol/L (1.12-1.30); Carboxyhemoglobin (COHb) 0.9 gm% (0.0-3.0); Hemoglobin (Hb) 16.3 g/dL (12.0-16.0); O2 Tension (PaO2), arterial 77.8 mmHg (80.0-100.0); Potassium - ABG Lab 3.95 mmol/L (3.70-5.30)
[2022-05-20 08:23] LABS: pH, Arterial 7.21 (7.35-7.45)
[2022-05-20 08:24] LABS: Puncture Site RRA
[2022-05-20] MEDS: Senokot S 8.6-50 MG TAB PO SCH (08:43)
[2022-05-20] MEDS: Polyethylene Glycol 3350 17 GM Packet PO SCH (08:43)
[2022-05-20] MEDS: Nystatin Ointment 15 GM TUBE TOP SCH ×2 (08:43→21:08)
[2022-05-20] MEDS: Enoxaparin Sodium 40 MG/0.4 ML SYRINGE SC SCH (09:17)
[2022-05-20] MEDS: Montelukast Sodium 10 mg Tablet PO SCH (09:18)
[2022-05-20] MEDS: Pantoprazole 40 MG VIAL IVP SCH (09:18)
[2022-05-20] MEDS ORDERED: Fentanyl CADD 0 ML ONE ×2 (10:25)
[2022-05-20] MEDS ORDERED: Fentanyl CADD 100 ML ONE (10:30)
[2022-05-20] MEDS ORDERED: methylPREDNISolone Sod Succ 40 MG VIAL IVP SCH (14:00)
[2022-05-21] MEDS: Propofol 1,000 MG/100 ML VIAL IV PRN ×6 (00:19→22:43)
[2022-05-21] MEDS: Budesonide 0.5 MG/2 ML NEB NEB SCH ×7 (00:34→22:11)
[2022-05-21] MEDS: methylPREDNISolone Sod Succ 40 MG VIAL IVP SCH ×3 (04:26→20:33)
[2022-05-21 04:57] LABS: ALT (SGPT) 61 U/L (8-55); AST (SGOT) 51 U/L (5-34); Albumin 2.8 g/dL (3.5-5.0); Alkaline Phosphatase 76 U/L (40-110); BUN (Urea Nitrogen) 31 mg/dL (9.8-20.1); Bilirubin, Total 0.4 mg/dL (0.2-1.2); Calc. Creatinine Clearance 181 mL/min (70-130); Calcium 9.3 mg/dL (7.8-10.44); Estimated GFR 113; Globulin 2.9 g/dL (2.4-3.5); Glucose 109 mg/dL (70-105); Protein, Total 5.7 g/dL (6.0-8.3)
[2022-05-21 05:06] LABS: Anion Gap 15 mmol/L (10-20); Carbon Dioxide 37 mmol/L (22-29); Chloride 97 mmol/L (98-107); Potassium 4.3 mmol/L (3.5-5.1); Sodium 145 mmol/L (136-145)
[2022-05-21 06:12] LABS: Band 46 % (5-11); MDiff Complete? YES; Mean Corpuscular HGB CONC 29.1 g/dL (32.0-36.0); Mean Corpuscular Hemoglobin 28.8 pg (27.0-31.0); Mean Platelet Volume 10.7 fL (7.4-10.4); Metamyelocyte 10 % (0-0); Monocytes 7 % (0-10); Neutrophil 37 % (42-75); Platelet Count 119 thou/uL (130-400); Red Blood Cell (RBC) Count 4.52 mill/uL (4.20-5.40); White Blood Cell (WBC) Count 32.2 thou/uL (4.8-10.8)
[2022-05-21] MEDS: Fentanyl CADD 100 ML IV SCH ×2 (06:15→16:40)
[2022-05-21 07:06] LABS: Actual Bicarbonate (HCO3a) 38.6 mEq/L (22-28); Base Excess (BEa) 12.1 mEq/L (-2.0 to +3.0); Calcium, Ionized (arterial) 1.23 mmol/L (1.12-1.30); Carboxyhemoglobin (COHb) 0.7 gm% (0.0-3.0); Hemoglobin (Hb) 13.4 g/dL (12.0-16.0); Potassium - ABG Lab 3.94 mmol/L (3.70-5.30); pH, Arterial 7.44 (7.35-7.45)
[2022-05-21 07:27] LABS: O2 Tension (PaO2), arterial 58.3 mmHg (80.0-100.0); Puncture Site RRA
[2022-05-21] MEDS ORDERED: Acetaminophen 325 MG Suppository PR PRN (08:23)
[2022-05-21] MEDS: Acetaminophen 500 MG TAB PO PRN ×2 (09:20→20:32)
[2022-05-21] MEDS: Pantoprazole 40 MG VIAL IVP SCH (09:20)
[2022-05-21] MEDS: Enoxaparin Sodium 40 MG/0.4 ML SYRINGE SC SCH (09:20)
[2022-05-21] MEDS: Montelukast Sodium 10 mg Tablet PO SCH (09:20)
[2022-05-21] MEDS: Nystatin Ointment 15 GM TUBE TOP SCH ×2 (09:22→20:46)
[2022-05-21] MEDS ORDERED: Meropenem 1 GM in Sodium Chloride 0.9% 100 ML IVPB SCH ×2 (10:45→11:00)
[2022-05-21] MEDS: Meropenem 1 GM in Sodium Chloride 0.9% 100 ML IVPB SCH (20:34)
[2022-05-22] MEDS: Fentanyl CADD 100 ML IV SCH ×3 (01:57→23:17)
[2022-05-22] MEDS: Propofol 1,000 MG/100 ML VIAL IV PRN ×5 (03:02→21:30)
[2022-05-22] MEDS: Meropenem 1 GM in Sodium Chloride 0.9% 100 ML IVPB SCH ×3 (04:12→20:36)
[2022-05-22] MEDS: methylPREDNISolone Sod Succ 40 MG VIAL IVP SCH ×3 (04:12→20:36)
[2022-05-22 05:15] LABS: ALT (SGPT) 127 U/L (8-55); AST (SGOT) 110 U/L (5-34); Albumin 2.7 g/dL (3.5-5.0); Alkaline Phosphatase 97 U/L (40-110); BUN (Urea Nitrogen) 29 mg/dL (9.8-20.1); Bilirubin, Total 0.7 mg/dL (0.2-1.2); Calc. Creatinine Clearance 189 mL/min (70-130); Calcium 9.6 mg/dL (7.8-10.44); Estimated GFR 114; Glucose 127 mg/dL (70-105); Protein, Total 5.7 g/dL (6.0-8.3)
[2022-05-22 05:24] LABS: Anion Gap 18 mmol/L (10-20); Carbon Dioxide 34 mmol/L (22-29); Chloride 99 mmol/L (98-107); Potassium 3.7 mmol/L (3.5-5.1); Sodium 147 mmol/L (136-145)
[2022-05-22 05:52] LABS: Band 44 % (5-11); Hemoglobin 12.1 g/dL (12.0-16.0); Lymphocytes 2 % (21-51); MDiff Complete? YES; Mean Corpuscular Hemoglobin 28.4 pg (27.0-31.0); Mean Corpuscular Volume 97.9 fL (78.0-98.0); Mean Platelet Volume 11.3 fL (7.4-10.4); Metamyelocyte 6 % (0-0); Monocytes 5 % (0-10); Neutrophil 43 % (42-75); Platelet Count 112 thou/uL (130-400); Platelet Morphology Comment Appears Decreased; RBC Distribution Width 15.9 % (11.5-14.5); Red Blood Cell (RBC) Count 4.26 mill/uL (4.20-5.40); White Blood Cell (WBC) Count 36.3 thou/uL (4.8-10.8)
[2022-05-22] MEDS: Budesonide 0.5 MG/2 ML NEB NEB SCH ×6 (06:29→22:42)
[2022-05-22 07:11] LABS: Actual Bicarbonate (HCO3a) 40.1 mEq/L (22-28); Base Excess (BEa) 13.8 mEq/L (-2.0 to +3.0); CO2 Tension 57.5 mmHg (35.0-45.0); Calcium, Ionized (arterial) 1.24 mmol/L (1.12-1.30); Carboxyhemoglobin (COHb) 0.6 gm% (0.0-3.0); Hemoglobin (Hb) 13.1 g/dL (12.0-16.0); O2 Tension (PaO2), arterial 72.9 mmHg (80.0-100.0); Potassium - ABG Lab 3.45 mmol/L (3.70-5.30); pH, Arterial 7.46 (7.35-7.45)
[2022-05-22 07:36] LABS: ALV-art Gradient 247.375 mmHg (0-20); Puncture Site RRA
[2022-05-22] MEDS ORDERED: VANCOMYCIN 2 GRAM/500 ML BAG 2 GM in Premix Bag 1 BAG IVPB SCH (09:15)
[2022-05-22] MEDS: Micafungin 100 MG in Sodium Chloride 0.9% 100 ML IVPB SCH (09:23)
[2022-05-22] MEDS: Pantoprazole 40 MG VIAL IVP SCH (09:41)
[2022-05-22] MEDS: Montelukast Sodium 10 mg Tablet PO SCH (09:41)
[2022-05-22] MEDS: Enoxaparin Sodium 40 MG/0.4 ML SYRINGE SC SCH (09:42)
[2022-05-22] MEDS: Nystatin Ointment 15 GM TUBE TOP SCH ×2 (09:47→21:25)
[2022-05-22] MEDS: Linezolid 600 MG in Premix Bag 1 BAG IVPB SCH ×2 (12:19→23:06)
[2022-05-22] MEDS ORDERED: Vancomycin 1.5 GRAM/300 ML BAG 1.5 GM in Premix Bag 1 BAG IVPB SCH (21:00)
[2022-05-22] MEDS: Senokot S 8.6-50 MG TAB PO SCH (21:25)
[2022-05-23] MEDS: Budesonide 0.5 MG/2 ML NEB NEB SCH ×5 (02:35→18:56)
[2022-05-23] MEDS: methylPREDNISolone Sod Succ 40 MG VIAL IVP SCH ×3 (04:11→20:24)
[2022-05-23] MEDS: Meropenem 1 GM in Sodium Chloride 0.9% 100 ML IVPB SCH ×3 (04:11→20:24)
[2022-05-23 04:24] LABS: Mean Corpuscular HGB CONC 30.7 g/dL (32.0-36.0); Mean Corpuscular Hemoglobin 29.6 pg (27.0-31.0); Mean Corpuscular Volume 96.5 fL (78.0-98.0); Platelet Count 107 thou/uL (130-400); RBC Distribution Width 15.6 % (11.5-14.5); White Blood Cell (WBC) Count 24.1 thou/uL (4.8-10.8)
[2022-05-23 04:49] LABS: ALT (SGPT) 151 U/L (8-55); AST (SGOT) 67 U/L (5-34); Albumin 2.6 g/dL (3.5-5.0); Alkaline Phosphatase 132 U/L (40-110); BUN (Urea Nitrogen) 30 mg/dL (9.8-20.1); Band 29 % (5-11); Bilirubin, Total 0.4 mg/dL (0.2-1.2); Calc. Creatinine Clearance 202 mL/min (70-130); Calcium 9.1 mg/dL (7.8-10.44); Estimated GFR 116; Glucose 140 mg/dL (70-105); MDiff Complete? YES; Monocytes 8 % (0-10); Neutrophil 63 % (42-75); Protein, Total 5.6 g/dL (6.0-8.3)
[2022-05-23 05:00] LABS: Anion Gap 16 mmol/L (10-20); Carbon Dioxide 34 mmol/L (22-29); Chloride 98 mmol/L (98-107); Potassium 3.9 mmol/L (3.5-5.1); Sodium 144 mmol/L (136-145)
[2022-05-23 07:01] LABS: Actual Bicarbonate (HCO3a) 38.5 mEq/L (22-28); Base Excess (BEa) 10.9 mEq/L (-2.0 to +3.0); Calcium, Ionized (arterial) 1.21 mmol/L (1.12-1.30); Carboxyhemoglobin (COHb) 0.6 gm% (0.0-3.0); Hemoglobin (Hb) 13.3 g/dL (12.0-16.0); O2 Tension (PaO2), arterial 82.6 mmHg (80.0-100.0); Potassium - ABG Lab 3.93 mmol/L (3.70-5.30); pH, Arterial 7.39 (7.35-7.45)
[2022-05-23 07:24] LABS: ALV-art Gradient 120.225 mmHg (0-20); CO2 Tension 65.9 mmHg (35.0-45.0); Puncture Site RRA
[2022-05-23] MEDS: Nystatin Ointment 15 GM TUBE TOP SCH ×2 (09:00→20:25)
[2022-05-23] MEDS: Polyethylene Glycol 3350 17 GM Packet PO SCH (09:08)
[2022-05-23] MEDS: Senokot S 8.6-50 MG TAB PO SCH ×2 (09:08→20:25)
[2022-05-23] MEDS: Montelukast Sodium 10 mg Tablet PO SCH (09:11)
[2022-05-23] MEDS: Enoxaparin Sodium 40 MG/0.4 ML SYRINGE SC SCH (09:11)
[2022-05-23] MEDS: Micafungin 100 MG in Sodium Chloride 0.9% 100 ML IVPB SCH (09:11)
[2022-05-23] MEDS: Pantoprazole 40 MG VIAL IVP SCH (09:12)
[2022-05-23] MEDS ORDERED: Fentanyl CADD 100 ML ONE (09:21)
[2022-05-23] MEDS: Propofol 1,000 MG/100 ML VIAL IV PRN ×4 (09:22→20:24)
[2022-05-23] MEDS: Fentanyl CADD 100 ML IV SCH (09:22)
[2022-05-23] MEDS: Dexmedetomidine 1,000 MCG in Sodium Chloride 0.9% 250 ML 240 ML IVPB SCH ×2 (12:45→20:24)
[2022-05-23] MEDS: Linezolid 600 MG in Premix Bag 1 BAG IVPB SCH ×2 (15:02→15:04)
[2022-05-23] MEDS: hydrALAZINE 20 MG/ML VIAL SLOW IVP PRN (17:34)
[2022-05-24] MEDS ORDERED: Fentanyl CADD 100 ML ONE ×2 (01:04→22:47)
[2022-05-24] MEDS: Fentanyl CADD 100 ML IV SCH ×2 (01:11→22:51)
[2022-05-24] MEDS: Propofol 1,000 MG/100 ML VIAL IV PRN ×5 (01:11→21:28)
[2022-05-24] MEDS: Budesonide 0.5 MG/2 ML NEB NEB SCH ×6 (01:31→21:05)
[2022-05-24] MEDS: Linezolid 600 MG in Premix Bag 1 BAG IVPB SCH ×2 (04:01→15:16)
[2022-05-24] MEDS: Meropenem 1 GM in Sodium Chloride 0.9% 100 ML IVPB SCH ×3 (04:02→21:27)
[2022-05-24] MEDS: methylPREDNISolone Sod Succ 40 MG VIAL IVP SCH ×3 (04:02→21:28)
[2022-05-24 05:49] LABS: ALT (SGPT) 174 U/L (8-55); AST (SGOT) 51 U/L (5-34); Albumin 2.6 g/dL (3.5-5.0); Alkaline Phosphatase 180 U/L (40-110); BUN (Urea Nitrogen) 33 mg/dL (9.8-20.1); Bilirubin, Total 0.4 mg/dL (0.2-1.2); Calc. Creatinine Clearance 220 mL/min (70-130); Calcium 9.1 mg/dL (7.8-10.44); Estimated GFR 119; Glucose 127 mg/dL (70-105); Protein, Total 5.6 g/dL (6.0-8.3)
[2022-05-24 05:59] LABS: Anion Gap 18 mmol/L (10-20); Carbon Dioxide 34 mmol/L (22-29); Chloride 100 mmol/L (98-107); Potassium 3.7 mmol/L (3.5-5.1); Sodium 148 mmol/L (136-145)
[2022-05-24 06:24] LABS: Band 24 % (5-11); Hemoglobin 11.3 g/dL (12.0-16.0); Lymphocytes 8 % (21-51); MDiff Complete? YES; Mean Corpuscular HGB CONC 30.7 g/dL (32.0-36.0); Mean Corpuscular Hemoglobin 28.9 pg (27.0-31.0); Mean Corpuscular Volume 94.3 fL (78.0-98.0); Mean Platelet Volume 11.1 fL (7.4-10.4); Monocytes 2 % (0-10); Neutrophil 66 % (42-75); Platelet Count 123 thou/uL (130-400); RBC Distribution Width 15.6 % (11.5-14.5); Red Blood Cell (RBC) Count 3.89 mill/uL (4.20-5.40); White Blood Cell (WBC) Count 19.9 thou/uL (4.8-10.8)
[2022-05-24 07:56] LABS: Actual Bicarbonate (HCO3a) 37.5 mEq/L (22-28); Base Excess (BEa) 12.9 mEq/L (-2.0 to +3.0); CO2 Tension 47.9 mmHg (35.0-45.0); Calcium, Ionized (arterial) 1.14 mmol/L (1.12-1.30); Carboxyhemoglobin (COHb) 0.3 gm% (0.0-3.0); Hemoglobin (Hb) 11.7 g/dL (12.0-16.0); O2 Tension (PaO2), arterial 89.5 mmHg (80.0-100.0); Potassium - ABG Lab 3.79 mmol/L (3.70-5.30); pH, Arterial 7.51 (7.35-7.45)
[2022-05-24 08:18] LABS: Puncture Site RRA
[2022-05-24 08:19] LABS: ALV-art Gradient 135.825 mmHg (0-20)
[2022-05-24] MEDS: Micafungin 100 MG in Sodium Chloride 0.9% 100 ML IVPB SCH (08:41)
[2022-05-24] MEDS: Enoxaparin Sodium 40 MG/0.4 ML SYRINGE SC SCH (08:41)
[2022-05-24] MEDS: Pantoprazole 40 MG VIAL IVP SCH (08:42)
[2022-05-24] MEDS: Nystatin Ointment 15 GM TUBE TOP SCH ×2 (08:42→22:50)
[2022-05-24] MEDS: Montelukast Sodium 10 mg Tablet PO SCH (11:09)
[2022-05-24] MEDS ORDERED: hydrALAZINE 20 MG/ML VIAL SLOW IVP PRN (12:11)
[2022-05-24] MEDS: Dexmedetomidine 1,000 MCG in Sodium Chloride 0.9% 250 ML 240 ML IVPB SCH ×2 (14:30→21:27)
[2022-05-24] MEDS ORDERED: Losartan 25 MG TAB PO SCH (16:30)
[2022-05-25] MEDS: Budesonide 0.5 MG/2 ML NEB NEB SCH ×6 (01:08→21:51)
[2022-05-25] MEDS: Linezolid 600 MG in Premix Bag 1 BAG IVPB SCH ×2 (03:30→15:54)
[2022-05-25] MEDS: Propofol 1,000 MG/100 ML VIAL IV PRN ×3 (03:30→18:18)
[2022-05-25] MEDS: Meropenem 1 GM in Sodium Chloride 0.9% 100 ML IVPB SCH ×3 (03:30→20:40)
[2022-05-25] MEDS: Dexmedetomidine 1,000 MCG in Sodium Chloride 0.9% 250 ML 240 ML IVPB SCH ×3 (04:02→20:40)
[2022-05-25 04:50] LABS: ALT (SGPT) 148 U/L (8-55); AST (SGOT) 48 U/L (5-34); Albumin 2.5 g/dL (3.5-5.0); Alkaline Phosphatase 164 U/L (40-110); Anion Gap 11 mmol/L (10-20); BUN (Urea Nitrogen) 25 mg/dL (9.8-20.1); Bilirubin, Total 0.6 mg/dL (0.2-1.2); Calc. Creatinine Clearance 221 mL/min (70-130); Calcium 8.6 mg/dL (7.8-10.44); Carbon Dioxide 34 mmol/L (22-29); Chloride 104 mmol/L (98-107); Estimated GFR 119; Globulin 2.7 g/dL (2.4-3.5); Glucose 118 mg/dL (70-105); Potassium 4.1 mmol/L (3.5-5.1); Protein, Total 5.2 g/dL (6.0-8.3); Sodium 145 mmol/L (136-145)
[2022-05-25 05:13] LABS: Band 17 % (5-11); Hemoglobin 10.6 g/dL (12.0-16.0); Hypochromia SLIGHT = 6-15 cells (100X) (0-5/hpf); Lymphocytes 16 % (21-51); MDiff Complete? YES; Mean Corpuscular HGB CONC 30.5 g/dL (32.0-36.0); Mean Corpuscular Hemoglobin 28.9 pg (27.0-31.0); Mean Corpuscular Volume 94.7 fL (78.0-98.0); Mean Platelet Volume 10.6 fL (7.4-10.4); Monocytes 2 % (0-10); Neutrophil 64 % (42-75); Platelet Count 131 thou/uL (130-400); Platelet Morphology Comment Appears Adequate; RBC Distribution Width 15.8 % (11.5-14.5); Reactive Lymphocytes 1 % (0-10); Red Blood Cell (RBC) Count 3.68 mill/uL (4.20-5.40); White Blood Cell (WBC) Count 19.3 thou/uL (4.8-10.8)
[2022-05-25] MEDS: methylPREDNISolone Sod Succ 40 MG VIAL IVP SCH ×3 (06:47→20:41)
[2022-05-25 07:28] LABS: Actual Bicarbonate (HCO3a) 32.3 mEq/L (22-28); Analyzer IN Cardio ER; Base Excess (BEa) 8.2 mEq/L (-2.0 to +3.0); CO2 Tension 42.7 mmHg (35.0-45.0); Calcium, Ionized (arterial) 1.15 mmol/L (1.12-1.30); Carboxyhemoglobin (COHb) 0.4 gm% (0.0-3.0); Hemoglobin (Hb) 12.6 g/dL (12.0-16.0); O2 Tension (PaO2), arterial 74.1 mmHg (80.0-100.0); Potassium - ABG Lab 3.98 mmol/L (3.70-5.30); Puncture Site RRA
[2022-05-25 07:29] LABS: ALV-art Gradient 157.725 mmHg (0-20)
[2022-05-25] MEDS: Nystatin Ointment 15 GM TUBE TOP SCH (09:00)
[2022-05-25] MEDS: Enoxaparin Sodium 40 MG/0.4 ML SYRINGE SC SCH (10:23)
[2022-05-25] MEDS: Losartan 25 MG TAB PO SCH (10:24)
[2022-05-25] MEDS: Pantoprazole 40 MG VIAL IVP SCH (10:24)
[2022-05-25] MEDS: Montelukast Sodium 10 mg Tablet PO SCH (10:24)
[2022-05-25] MEDS: Micafungin 100 MG in Sodium Chloride 0.9% 100 ML IVPB SCH (10:25)
[2022-05-25] MEDS ORDERED: Nystatin Powder 15 GM BOT TOP SCH (16:00)
[2022-05-25] MEDS ORDERED: Lorazepam 1 MG TAB PO PRN (16:40)
[2022-05-25] MEDS: Fentanyl CADD 100 ML IV SCH (19:49)
[2022-05-25] MEDS: Pregabalin 75 MG CAP PO SCH (20:41)
[2022-05-25] MEDS: Pramipexole Di-HCl 1 MG TAB PO SCH (20:41)
[2022-05-25] MEDS: Nystatin Powder 15 GM BOT TOP SCH (20:43)
[2022-05-25] MEDS ORDERED: traZODone HCl 50 MG TAB PO SCH (21:00)
[2022-05-26] MEDS: Budesonide 0.5 MG/2 ML NEB NEB SCH ×6 (02:10→21:46)
[2022-05-26] MEDS: Propofol 1,000 MG/100 ML VIAL IV PRN (02:13)
[2022-05-26] MEDS: Linezolid 600 MG in Premix Bag 1 BAG IVPB SCH ×2 (02:16→14:00)
[2022-05-26] MEDS: methylPREDNISolone Sod Succ 40 MG VIAL IVP SCH ×3 (04:08→21:07)
[2022-05-26] MEDS: Meropenem 1 GM in Sodium Chloride 0.9% 100 ML IVPB SCH ×3 (04:09→20:56)
[2022-05-26] MEDS: Dexmedetomidine 1,000 MCG in Sodium Chloride 0.9% 250 ML 240 ML IVPB SCH ×3 (04:09→17:51)
[2022-05-26 04:45] LABS: Anisocytosis SLIGHT = 6-15 cells (100X) (0-5/hpf); Band 3 % (5-11); Hemoglobin 10.3 g/dL (12.0-16.0); Hypochromia SLIGHT = 6-15 cells (100X) (0-5/hpf); Lymphocytes 14 % (21-51); MDiff Complete? YES; Mean Corpuscular HGB CONC 31.1 g/dL (32.0-36.0); Mean Corpuscular Hemoglobin 29.3 pg (27.0-31.0); Mean Corpuscular Volume 94.3 fL (78.0-98.0); Monocytes 6 % (0-10); Neutrophil 77 % (42-75); Platelet Count 132 thou/uL (130-400); Platelet Morphology Comment Appears Adequate; Polychromasia SLIGHT = 2-3 cells (100X) (0-2/hpf); RBC Distribution Width 15.6 % (11.5-14.5); Red Blood Cell (RBC) Count 3.52 mill/uL (4.20-5.40); Stomatocytes SLIGHT = 2-5 cells (100X) (0-1/hpf); White Blood Cell (WBC) Count 19.5 thou/uL (4.8-10.8)
[2022-05-26 04:57] LABS: ALT (SGPT) 177 U/L (8-55); AST (SGOT) 59 U/L (5-34); Albumin 2.4 g/dL (3.5-5.0); Alkaline Phosphatase 166 U/L (40-110); Anion Gap 12 mmol/L (10-20); BUN (Urea Nitrogen) 18 mg/dL (9.8-20.1); Bilirubin, Total 0.7 mg/dL (0.2-1.2); Calc. Creatinine Clearance 225 mL/min (70-130); Calcium 8.4 mg/dL (7.8-10.44); Carbon Dioxide 33 mmol/L (22-29); Chloride 101 mmol/L (98-107); Estimated GFR 119; Globulin 2.8 g/dL (2.4-3.5); Glucose 143 mg/dL (70-105); Potassium 4.1 mmol/L (3.5-5.1); Protein, Total 5.2 g/dL (6.0-8.3); Sodium 142 mmol/L (136-145)
[2022-05-26 07:23] LABS: Actual Bicarbonate (HCO3a) 33.5 mEq/L (22-28); Base Excess (BEa) 8.3 mEq/L (-2.0 to +3.0); CO2 Tension 49.2 mmHg (35.0-45.0); Calcium, Ionized (arterial) 1.16 mmol/L (1.12-1.30); Carboxyhemoglobin (COHb) 0.7 gm% (0.0-3.0); Hemoglobin (Hb) 11.6 g/dL (12.0-16.0); O2 Tension (PaO2), arterial 79.1 mmHg (80.0-100.0); Potassium - ABG Lab 4.21 mmol/L (3.70-5.30); pH, Arterial 7.45 (7.35-7.45)
[2022-05-26 07:36] LABS: Puncture Site RRA
[2022-05-26] MEDS: Enoxaparin Sodium 40 MG/0.4 ML SYRINGE SC SCH (08:51)
[2022-05-26] MEDS: Pantoprazole 40 MG VIAL IVP SCH (08:52)
[2022-05-26] MEDS: Pregabalin 75 MG CAP PO SCH ×2 (08:53→21:08)
[2022-05-26] MEDS: Montelukast Sodium 10 mg Tablet PO SCH ×2 (08:53→09:00)
[2022-05-26] MEDS: Losartan 25 MG TAB PO SCH (08:53)
[2022-05-26] MEDS: Nystatin Powder 15 GM BOT TOP SCH ×2 (08:54→21:14)
[2022-05-26] MEDS ORDERED: Spironolactone 25 MG TAB PO SCH (09:00)
[2022-05-26] MEDS: fentaNYL 50 mcg/hour Patch TD SCH (16:27)
[2022-05-26] MEDS: Pramipexole Di-HCl 1 MG TAB PO SCH (21:07)
[2022-05-27] MEDS: Dexmedetomidine 1,000 MCG in Sodium Chloride 0.9% 250 ML 240 ML IVPB SCH ×3 (01:20→18:27)
[2022-05-27] MEDS ORDERED: Labetalol HCl 100 MG/20 ML VIAL ONE (01:58)
[2022-05-27] MEDS: Budesonide 0.5 MG/2 ML NEB NEB SCH ×6 (02:19→22:02)
[2022-05-27] MEDS: Linezolid 600 MG in Premix Bag 1 BAG IVPB SCH ×2 (03:14→14:51)
[2022-05-27] MEDS: Meropenem 1 GM in Sodium Chloride 0.9% 100 ML IVPB SCH ×3 (03:58→20:32)
[2022-05-27 04:21] LABS: Band 25 % (5-11); Hemoglobin 10.8 g/dL (12.0-16.0); Hypochromia SLIGHT = 6-15 cells (100X) (0-5/hpf); Lymphocytes 9 % (21-51); MDiff Complete? YES; Mean Corpuscular HGB CONC 31.9 g/dL (32.0-36.0); Mean Corpuscular Hemoglobin 29.9 pg (27.0-31.0); Mean Corpuscular Volume 93.8 fL (78.0-98.0); Mean Platelet Volume 9.9 fL (7.4-10.4); Monocytes 6 % (0-10); Neutrophil 60 % (42-75); Platelet Count 187 thou/uL (130-400); Platelet Morphology Comment Appears Adequate; Red Blood Cell (RBC) Count 3.62 mill/uL (4.20-5.40); White Blood Cell (WBC) Count 26.7 thou/uL (4.8-10.8)
[2022-05-27 04:58] LABS: ALT (SGPT) 138 U/L (8-55); AST (SGOT) 43 U/L (5-34); Albumin 2.4 g/dL (3.5-5.0); Alkaline Phosphatase 132 U/L (40-110); Anion Gap 13 mmol/L (10-20); BUN (Urea Nitrogen) 28 mg/dL (9.8-20.1); Bilirubin, Total 0.8 mg/dL (0.2-1.2); Calc. Creatinine Clearance 196 mL/min (70-130); Calcium 8.4 mg/dL (7.8-10.44); Carbon Dioxide 32 mmol/L (22-29); Chloride 99 mmol/L (98-107); Estimated GFR 116; Glucose 138 mg/dL (70-105); Potassium 4.3 mmol/L (3.5-5.1); Protein, Total 5.4 g/dL (6.0-8.3); Sodium 140 mmol/L (136-145)
[2022-05-27 07:08] LABS: Actual Bicarbonate (HCO3a) 27.1 mEq/L (22-28); Base Excess (BEa) 3.5 mEq/L (-2.0 to +3.0); CO2 Tension 37.8 mmHg (35.0-45.0); Calcium, Ionized (arterial) 1.17 mmol/L (1.12-1.30); O2 Tension (PaO2), arterial 67.6 mmHg (80.0-100.0); pH, Arterial 7.47 (7.35-7.45)
[2022-05-27 07:19] LABS: Puncture Site RRA
[2022-05-27] MEDS ORDERED: Lidocaine 1% (PF) 30 ML VIAL ONE (07:59)
[2022-05-27 09:33] LABS: Fluid, pH - Pleural Fld Greater than 7.50 (7.60 - 7.66)
[2022-05-27 09:44] LABS: Pleural Fluid, Protein 2.1 g/dL
[2022-05-27] MEDS: Enoxaparin Sodium 40 MG/0.4 ML SYRINGE SC SCH (09:44)
[2022-05-27] MEDS: methylPREDNISolone Sod Succ 40 MG VIAL IVP SCH ×2 (09:44→22:24)
[2022-05-27] MEDS: Losartan 25 MG TAB PO SCH (09:45)
[2022-05-27] MEDS: Pantoprazole 40 MG VIAL IVP SCH (09:45)
[2022-05-27] MEDS: Pregabalin 75 MG CAP PO SCH ×2 (09:46→22:30)
[2022-05-27] MEDS: Montelukast Sodium 10 mg Tablet PO SCH (09:46)
[2022-05-27] MEDS: Nystatin Powder 15 GM BOT TOP SCH ×2 (09:48→22:25)
[2022-05-27 11:04] LABS: RBC Count-Automated (BF) 1479 /cu.mm; WBC/Nucleated-Auto (BF) 12368 /cu.mm
[2022-05-27 12:06] LABS: BF Color Yellow; Body Fluid Source Thoracentesis Fluid; Clarity Cloudy/Turbid (Clear); Tube # EDTA
[2022-05-27 12:12] LABS: BF Segmented Neutrophils 62 %; Cell Count Non Hematic 30 %; Lymphocytes 8 %
[2022-05-27] MEDS: Acetaminophen 500 MG TAB PO PRN (17:16)
[2022-05-27] MEDS ORDERED: diphenhydrAMINE 50 MG/ML VIAL IVP PRN (20:44)
[2022-05-27] MEDS: Pramipexole Di-HCl 1 MG TAB PO SCH (22:24)
[2022-05-28] MEDS: Dexmedetomidine 1,000 MCG in Sodium Chloride 0.9% 250 ML 240 ML IVPB SCH ×4 (01:53→22:48)
[2022-05-28] MEDS: Budesonide 0.5 MG/2 ML NEB NEB SCH ×6 (02:16→21:38)
[2022-05-28] MEDS: Linezolid 600 MG in Premix Bag 1 BAG IVPB SCH ×2 (03:40→15:26)
[2022-05-28] MEDS: Meropenem 1 GM in Sodium Chloride 0.9% 100 ML IVPB SCH ×3 (04:52→20:30)
[2022-05-28 05:24] LABS: ALT (SGPT) 123 U/L (8-55); AST (SGOT) 44 U/L (5-34); Albumin 2.4 g/dL (3.5-5.0); Alkaline Phosphatase 115 U/L (40-110); Anion Gap 11 mmol/L (10-20); BUN (Urea Nitrogen) 24 mg/dL (9.8-20.1); Bilirubin, Total 0.8 mg/dL (0.2-1.2); Calc. Creatinine Clearance 204 mL/min (70-130); Calcium 8.9 mg/dL (7.8-10.44); Carbon Dioxide 33 mmol/L (22-29); Chloride 101 mmol/L (98-107); Estimated GFR 118; Globulin 3.4 g/dL (2.4-3.5); Glucose 134 mg/dL (70-105); Potassium 4.3 mmol/L (3.5-5.1); Protein, Total 5.8 g/dL (6.0-8.3); Sodium 141 mmol/L (136-145)
[2022-05-28 05:40] LABS: Anisocytosis SLIGHT = 6-15 cells (100X) (0-5/hpf); Band 8 % (5-11); Hemoglobin 10.4 g/dL (12.0-16.0); Hypochromia SLIGHT = 6-15 cells (100X) (0-5/hpf); Lymphocytes 4 % (21-51); MDiff Complete? YES; Mean Corpuscular HGB CONC 31.1 g/dL (32.0-36.0); Mean Corpuscular Hemoglobin 29.5 pg (27.0-31.0); Mean Corpuscular Volume 94.8 fL (78.0-98.0); Mean Platelet Volume 9.9 fL (7.4-10.4); Monocytes 3 % (0-10); Myelocyte 2 % (0-0); Neutrophil 83 % (42-75); Platelet Count 230 thou/uL (130-400); Platelet Morphology Comment Appears Adequate; Polychromasia SLIGHT = 2-3 cells (100X) (0-2/hpf); RBC Distribution Width 16.2 % (11.5-14.5); Red Blood Cell (RBC) Count 3.54 mill/uL (4.20-5.40); White Blood Cell (WBC) Count 28.6 thou/uL (4.8-10.8)
[2022-05-28] MEDS: Losartan 25 MG TAB PO SCH (08:19)
[2022-05-28] MEDS: Montelukast Sodium 10 mg Tablet PO SCH (08:19)
[2022-05-28] MEDS: Pregabalin 75 MG CAP PO SCH ×2 (08:20→21:05)
[2022-05-28] MEDS: Enoxaparin Sodium 40 MG/0.4 ML SYRINGE SC SCH (08:20)
[2022-05-28] MEDS: methylPREDNISolone Sod Succ 40 MG VIAL IVP SCH ×2 (08:20→20:59)
[2022-05-28] MEDS: Micafungin 100 MG in Sodium Chloride 0.9% 100 ML IVPB SCH (08:40)
[2022-05-28] MEDS: Acetaminophen 500 MG TAB PO PRN (09:00)
[2022-05-28] MEDS: Lansoprazole 3 MG/ML ORAL SUSPENSION PER TUBE SCH (09:25)
[2022-05-28] MEDS: Midazolam HCl 2 mg/2 ml Vial SLOW IVP PRN ×2 (10:06→15:26)
[2022-05-28] MEDS: Pramipexole Di-HCl 1 MG TAB PO SCH (21:04)
[2022-05-29] MEDS: Linezolid 600 MG in Premix Bag 1 BAG IVPB SCH ×2 (04:00→14:28)
[2022-05-29] MEDS: Budesonide 0.5 MG/2 ML NEB NEB SCH ×3 (04:09→18:42)
[2022-05-29 06:45] LABS: ALT (SGPT) 124 U/L (8-55); AST (SGOT) 43 U/L (5-34); Albumin 2.5 g/dL (3.5-5.0); Alkaline Phosphatase 99 U/L (40-110); Anion Gap 15 mmol/L (10-20); BUN (Urea Nitrogen) 21 mg/dL (9.8-20.1); Bilirubin, Total 0.6 mg/dL (0.2-1.2); Calc. Creatinine Clearance 206 mL/min (70-130); Calcium 9.1 mg/dL (7.8-10.44); Carbon Dioxide 29 mmol/L (22-29); Chloride 99 mmol/L (98-107); Estimated GFR 118; Globulin 3.9 g/dL (2.4-3.5); Glucose 151 mg/dL (70-105); Potassium 4.7 mmol/L (3.5-5.1); Protein, Total 6.4 g/dL (6.0-8.3); Sodium 138 mmol/L (136-145)
[2022-05-29 06:52] LABS: Hemoglobin 10.4 g/dL (12.0-16.0); Mean Corpuscular HGB CONC 30.6 g/dL (32.0-36.0); Mean Corpuscular Hemoglobin 28.5 pg (27.0-31.0); Mean Corpuscular Volume 93.1 fL (78.0-98.0); Mean Platelet Volume 9.5 fL (7.4-10.4); Platelet Count 241 thou/uL (130-400); Platelet Morphology Comment Appears Adequate; RBC Distribution Width 16.3 % (11.5-14.5); RBC Morphology Normal; Red Blood Cell (RBC) Count 3.64 mill/uL (4.20-5.40); White Blood Cell (WBC) Count 24.6 thou/uL (4.8-10.8)
[2022-05-29] MEDS: Montelukast Sodium 10 mg Tablet PO SCH (08:22)
[2022-05-29] MEDS: Losartan 25 MG TAB PO SCH (08:22)
[2022-05-29] MEDS: methylPREDNISolone Sod Succ 40 MG VIAL IVP SCH ×2 (08:22→20:22)
[2022-05-29] MEDS: Enoxaparin Sodium 40 MG/0.4 ML SYRINGE SC SCH (08:23)
[2022-05-29] MEDS: Pregabalin 75 MG CAP PO SCH ×2 (08:23→20:22)
[2022-05-29] MEDS: Lansoprazole 3 MG/ML ORAL SUSPENSION PER TUBE SCH (08:23)
[2022-05-29] MEDS: Dexmedetomidine 1,000 MCG in Sodium Chloride 0.9% 250 ML 240 ML IVPB SCH ×3 (08:23→23:31)
[2022-05-29] MEDS: Micafungin 100 MG in Sodium Chloride 0.9% 100 ML IVPB SCH (08:55)
[2022-05-29] MEDS: Acetaminophen 500 MG TAB PO PRN (10:34)
[2022-05-29 14:19] LABS: Band 9 % (5-11); Lymphocytes 7 % (21-51); MDiff Complete? YES; Monocytes 4 % (0-10); Neutrophil 80 % (42-75); Polychromasia SLIGHT = 2-3 cells (100X) (0-2/hpf)
[2022-05-29] MEDS: fentaNYL 50 mcg/hour Patch TD SCH (14:27)
[2022-05-29] MEDS: Pramipexole Di-HCl 1 MG TAB PO SCH (20:22)
[2022-05-30] MEDS: Linezolid 600 MG in Premix Bag 1 BAG IVPB SCH ×2 (03:31→15:14)
[2022-05-30 04:27] LABS: #Eosinphils 0.1 thou/uL (0.0-0.7); #Lymphocytes 1.6 thou/uL (1.20-3.40); #Neutrophils 18.3 thou/uL (1.40-6.50); %Eosinophils 0.3 % (0.0-10.0); %Lymphocytes 7.5 % (21.0-51.0); %Monocytes 4.9 % (0.0-10.0); %Neutrophils 87.3 % (42.0-75.0); Hemoglobin 10.1 g/dL (12.0-16.0); Mean Corpuscular HGB CONC 30.9 g/dL (32.0-36.0); Mean Corpuscular Hemoglobin 29.1 pg (27.0-31.0); Mean Corpuscular Volume 94.1 fL (78.0-98.0); Mean Platelet Volume 9.6 fL (7.4-10.4); Platelet Count 267 thou/uL (130-400); RBC Distribution Width 16.3 % (11.5-14.5); Red Blood Cell (RBC) Count 3.46 mill/uL (4.20-5.40)
[2022-05-30 04:40] LABS: ALT (SGPT) 117 U/L (8-55); AST (SGOT) 37 U/L (5-34); Albumin 2.6 g/dL (3.5-5.0); Alkaline Phosphatase 89 U/L (40-110); Anion Gap 14 mmol/L (10-20); BUN (Urea Nitrogen) 20 mg/dL (9.8-20.1); Bilirubin, Total 0.6 mg/dL (0.2-1.2); Calc. Creatinine Clearance 206 mL/min (70-130); Calcium 9.3 mg/dL (7.8-10.44); Carbon Dioxide 32 mmol/L (22-29); Chloride 99 mmol/L (98-107); Estimated GFR 118; Globulin 3.8 g/dL (2.4-3.5); Glucose 123 mg/dL (70-105); Potassium 3.8 mmol/L (3.5-5.1); Protein, Total 6.4 g/dL (6.0-8.3); Sodium 141 mmol/L (136-145)
[2022-05-30] MEDS: Budesonide 0.5 MG/2 ML NEB NEB SCH ×2 (06:55→18:46)
[2022-05-30] MEDS ORDERED: Fentanyl 100 MCG/2 ML VIAL ONE ×2 (09:14→09:45)
[2022-05-30] MEDS ORDERED: Vecuronium 10 MG VIAL ONE (09:15)
[2022-05-30] MEDS ORDERED: methylPREDNISolone Sod Succ 40 MG VIAL IVP SCH (09:30)
[2022-05-30] MEDS ORDERED: Xylocaine 1% w/ Epi 1:100K 10 ML VIAL ONE (09:32)
[2022-05-30] MEDS ORDERED: Midazolam HCl 2 mg/2 ml Vial ONE (09:45)
[2022-05-30] MEDS: Enoxaparin Sodium 40 MG/0.4 ML SYRINGE SC SCH (10:22)
[2022-05-30] MEDS ORDERED: Midazolam HCl 2 mg/2 ml Vial SLOW IVP PRN (10:40)
[2022-05-30] MEDS ORDERED: Fentanyl BOLUS 250 ML IVPB PRN (10:45)
[2022-05-30] MEDS ORDERED: Morphine 4 MG/ML VIAL SLOW IVP PRN (10:45)
[2022-05-30] MEDS ORDERED: Ventilator Sedation Protocol 1 EACH FS SCH (10:45)
[2022-05-30] MEDS ORDERED: Fentanyl 100 MCG/2 ML VIAL SLOW IVP SCH (11:00)
[2022-05-30] MEDS ORDERED: Midazolam HCl 2 mg/2 ml Vial SLOW IVP SCH (11:00)
[2022-05-30] MEDS: Fentanyl CADD 100 ML IV SCH (11:19)
[2022-05-30] MEDS: Montelukast Sodium 10 mg Tablet PO SCH (12:36)
[2022-05-30] MEDS: Lansoprazole 3 MG/ML ORAL SUSPENSION PER TUBE SCH (12:36)
[2022-05-30] MEDS: Micafungin 100 MG in Sodium Chloride 0.9% 100 ML IVPB SCH (12:37)
[2022-05-30] MEDS: Pregabalin 75 MG CAP PO SCH ×2 (12:38→20:20)
[2022-05-30] MEDS: Losartan 25 MG TAB PO SCH (12:46)
[2022-05-30] MEDS: methylPREDNISolone Sod Succ 40 MG VIAL IVP SCH (14:35)
[2022-05-30] MEDS: Pramipexole Di-HCl 1 MG TAB PO SCH (20:53)
[2022-05-30] MEDS: Dexmedetomidine 1,000 MCG in Sodium Chloride 0.9% 250 ML 240 ML IVPB SCH (21:32)
[2022-05-31] MEDS: Linezolid 600 MG in Premix Bag 1 BAG IVPB SCH ×2 (03:53→17:01)
[2022-05-31 06:58] LABS: #Eosinphils 0.3 thou/uL (0.0-0.7); #Lymphocytes 1.9 thou/uL (1.20-3.40); #Monocytes 1.5 thou/uL (0.11-0.59); #Neutrophils 12.7 thou/uL (1.40-6.50); %Basophils 0.2 % (0.0-1.0); %Eosinophils 1.8 % (0.0-10.0); %Lymphocytes 11.7 % (21.0-51.0); %Neutrophils 77.3 % (42.0-75.0); Hemoglobin 10.2 g/dL (12.0-16.0); Mean Corpuscular Hemoglobin 29.4 pg (27.0-31.0); Mean Corpuscular Volume 94.9 fL (78.0-98.0); Mean Platelet Volume 8.8 fL (7.4-10.4); Platelet Count 272 thou/uL (130-400); RBC Distribution Width 16.1 % (11.5-14.5); Red Blood Cell (RBC) Count 3.46 mill/uL (4.20-5.40); White Blood Cell (WBC) Count 16.4 thou/uL (4.8-10.8)
[2022-05-31 07:27] LABS: ALT (SGPT) 97 U/L (8-55); AST (SGOT) 30 U/L (5-34); Albumin 2.5 g/dL (3.5-5.0); Alkaline Phosphatase 81 U/L (40-110); Anion Gap 15 mmol/L (10-20); BUN (Urea Nitrogen) 17 mg/dL (9.8-20.1); Bilirubin, Total 0.5 mg/dL (0.2-1.2); Calc. Creatinine Clearance 209 mL/min (70-130); Calcium 8.9 mg/dL (7.8-10.44); Carbon Dioxide 29 mmol/L (22-29); Chloride 98 mmol/L (98-107); Estimated GFR 119; Globulin 3.7 g/dL (2.4-3.5); Glucose 111 mg/dL (70-105); Potassium 3.3 mmol/L (3.5-5.1); Protein, Total 6.2 g/dL (6.0-8.3); Sodium 139 mmol/L (136-145)
[2022-05-31] MEDS: Budesonide 0.5 MG/2 ML NEB NEB SCH ×2 (07:32→18:58)
[2022-05-31] MEDS ORDERED: methylPREDNISolone Sod Succ 40 MG VIAL IVP SCH (09:00)
[2022-05-31] MEDS: Potassium Chloride 20 MEQ in Premix Bag 1 BAG IVPB SCH ×2 (10:25→13:11)
[2022-05-31] MEDS: Micafungin 100 MG in Sodium Chloride 0.9% 100 ML IVPB SCH (10:25)
[2022-05-31] MEDS: Losartan 25 MG TAB PO SCH (10:26)
[2022-05-31] MEDS: Montelukast Sodium 10 mg Tablet PO SCH (10:26)
[2022-05-31] MEDS: Pregabalin 75 MG CAP PO SCH ×2 (10:26→21:21)
[2022-05-31] MEDS: Enoxaparin Sodium 40 MG/0.4 ML SYRINGE SC SCH (10:28)
[2022-05-31] MEDS: Dexmedetomidine 1,000 MCG in Sodium Chloride 0.9% 250 ML 240 ML IVPB SCH (11:50)
[2022-05-31] MEDS: Lansoprazole 3 MG/ML ORAL SUSPENSION PER TUBE SCH (17:16)
[2022-05-31] MEDS: Pramipexole Di-HCl 1 MG TAB PO SCH (21:23)
[2022-06-01] MEDS: Linezolid 600 MG in Premix Bag 1 BAG IVPB SCH ×2 (03:27→18:20)
[2022-06-01] MEDS: Dexmedetomidine 1,000 MCG in Sodium Chloride 0.9% 250 ML 240 ML IVPB SCH ×2 (03:28→21:09)
[2022-06-01 05:21] LABS: #Eosinphils 0.1 thou/uL (0.0-0.7); #Lymphocytes 1.4 thou/uL (1.20-3.40); #Monocytes 1.1 thou/uL (0.11-0.59); #Neutrophils 11.7 thou/uL (1.40-6.50); %Basophils 0.2 % (0.0-1.0); %Eosinophils 0.9 % (0.0-10.0); %Monocytes 7.7 % (0.0-10.0); %Neutrophils 81.2 % (42.0-75.0); Mean Corpuscular HGB CONC 31.4 g/dL (32.0-36.0); Mean Corpuscular Volume 95.6 fL (78.0-98.0); Platelet Count 274 thou/uL (130-400); RBC Distribution Width 16.2 % (11.5-14.5); Red Blood Cell (RBC) Count 2.99 mill/uL (4.20-5.40); White Blood Cell (WBC) Count 14.4 thou/uL (4.8-10.8)
[2022-06-01 05:46] LABS: ALT (SGPT) 79 U/L (8-55); AST (SGOT) 26 U/L (5-34); Albumin 2.3 g/dL (3.5-5.0); Alkaline Phosphatase 69 U/L (40-110); Anion Gap 14 mmol/L (10-20); BUN (Urea Nitrogen) 13 mg/dL (9.8-20.1); Bilirubin, Total 0.5 mg/dL (0.2-1.2); Calc. Creatinine Clearance 210 mL/min (70-130); Calcium 8.9 mg/dL (7.8-10.44); Carbon Dioxide 30 mmol/L (22-29); Chloride 100 mmol/L (98-107); Estimated GFR 119; Globulin 3.3 g/dL (2.4-3.5); Glucose 131 mg/dL (70-105); Potassium 3.2 mmol/L (3.5-5.1); Protein, Total 5.6 g/dL (6.0-8.3); Sodium 141 mmol/L (136-145)
[2022-06-01] MEDS: Budesonide 0.5 MG/2 ML NEB NEB SCH ×2 (07:32→18:16)
[2022-06-01] MEDS: Lansoprazole 3 MG/ML ORAL SUSPENSION PER TUBE SCH (08:36)
[2022-06-01] MEDS: Enoxaparin Sodium 40 MG/0.4 ML SYRINGE SC SCH (08:36)
[2022-06-01] MEDS: methylPREDNISolone Sod Succ 40 MG VIAL IVP SCH (08:36)
[2022-06-01] MEDS: Montelukast Sodium 10 mg Tablet PO SCH (08:36)
[2022-06-01] MEDS: Losartan 25 MG TAB PO SCH (08:36)
[2022-06-01] MEDS: Micafungin 100 MG in Sodium Chloride 0.9% 100 ML IVPB SCH (08:36)
[2022-06-01] MEDS: Pregabalin 75 MG CAP PO SCH ×2 (08:37→21:02)
[2022-06-01] MEDS: Potassium Chloride 20 MEQ in Premix Bag 1 BAG IVPB SCH ×2 (08:37→11:49)
[2022-06-01] MEDS ORDERED: Potassium Bicarbonate/Cit Ac 20 MEQ TAB PO SCH (09:45)
[2022-06-01] MEDS ORDERED: GASTROGRAFIN 30 ML BOT ONE (13:50)
[2022-06-01] MEDS ORDERED: Iopamidol-370 76% 500 ML 1 ML ONE (13:50)
[2022-06-01] MEDS ORDERED: Lidocaine 1% w/Epinephrine 1:200K 30 ML VIAL FS SCH (17:30)
[2022-06-01] MEDS: Scopolamine 1.5 mg/72 hour Patch TD SCH (18:20)
[2022-06-01] MEDS: Pramipexole Di-HCl 1 MG TAB PO SCH (21:02)
[2022-06-02] MEDS: Fentanyl CADD 100 ML IV SCH (00:34)
[2022-06-02] MEDS: Acetaminophen 500 MG TAB PO PRN ×3 (00:37→21:30)
[2022-06-02] MEDS: Linezolid 600 MG in Premix Bag 1 BAG IVPB SCH ×2 (03:14→16:21)
[2022-06-02 04:38] LABS: ALT (SGPT) 74 U/L (8-55); AST (SGOT) 26 U/L (5-34); Albumin 2.4 g/dL (3.5-5.0); Alkaline Phosphatase 68 U/L (40-110); Anion Gap 12 mmol/L (10-20); BUN (Urea Nitrogen) 8 mg/dL (9.8-20.1); Bilirubin, Total 0.7 mg/dL (0.2-1.2); Calc. Creatinine Clearance 210 mL/min (70-130); Calcium 8.9 mg/dL (7.8-10.44); Carbon Dioxide 32 mmol/L (22-29); Chloride 95 mmol/L (98-107); Estimated GFR 119; Globulin 3.6 g/dL (2.4-3.5); Glucose 129 mg/dL (70-105); Magnesium 1.2 mg/dL (1.6-2.6); Potassium 3.4 mmol/L (3.5-5.1); Sodium 136 mmol/L (136-145)
[2022-06-02 04:45] LABS: #Eosinphils 0.3 thou/uL (0.0-0.7); #Lymphocytes 1.9 thou/uL (1.20-3.40); #Monocytes 1.2 thou/uL (0.11-0.59); #Neutrophils 10.2 thou/uL (1.40-6.50); %Basophils 0.3 % (0.0-1.0); %Eosinophils 2.4 % (0.0-10.0); %Lymphocytes 13.6 % (21.0-51.0); %Monocytes 8.6 % (0.0-10.0); %Neutrophils 75.1 % (42.0-75.0); Mean Corpuscular HGB CONC 30.6 g/dL (32.0-36.0); Mean Corpuscular Hemoglobin 29.1 pg (27.0-31.0); Mean Corpuscular Volume 95.2 fL (78.0-98.0); Mean Platelet Volume 8.9 fL (7.4-10.4); Platelet Count 290 thou/uL (130-400); RBC Distribution Width 16.4 % (11.5-14.5); White Blood Cell (WBC) Count 13.6 thou/uL (4.8-10.8)
[2022-06-02] MEDS ORDERED: Magnesium Sulfate In Water 4 GM in Premix Bag 1 BAG IVPB SCH ×2 (06:00→09:00)
[2022-06-02] MEDS: Potassium Chloride 20 MEQ in Premix Bag 1 BAG IVPB SCH ×2 (06:47→09:09)
[2022-06-02] MEDS: Budesonide 0.5 MG/2 ML NEB NEB SCH ×2 (07:53→18:30)
[2022-06-02] MEDS: Lansoprazole 3 MG/ML ORAL SUSPENSION PER TUBE SCH (09:09)
[2022-06-02] MEDS: Losartan 25 MG TAB PO SCH (09:09)
[2022-06-02] MEDS: Montelukast Sodium 10 mg Tablet PO SCH (09:09)
[2022-06-02] MEDS: Enoxaparin Sodium 40 MG/0.4 ML SYRINGE SC SCH (09:09)
[2022-06-02] MEDS: Pregabalin 75 MG CAP PO SCH ×2 (09:10→21:29)
[2022-06-02] MEDS: methylPREDNISolone Sod Succ 40 MG VIAL IVP SCH (09:10)
[2022-06-02] MEDS ORDERED: Potassium Bicarbonate/Cit Ac 20 MEQ TAB PO SCH (11:00)
[2022-06-02] MEDS: Dexmedetomidine 1,000 MCG in Sodium Chloride 0.9% 250 ML 240 ML IVPB SCH (14:14)
[2022-06-02 19:18] LABS: Potassium 4.4 mmol/L (3.5-5.1)
[2022-06-02] MEDS: CeleCOXIB 100 MG CAP PER TUBE SCH (21:28)
[2022-06-02] MEDS: Pramipexole Di-HCl 1 MG TAB PO SCH (21:28)
[2022-06-02] MEDS ORDERED: Magnesium 2 GM/50 ML(in water) 2 GM in Premix Bag 1 BAG IVPB SCH (22:30)
[2022-06-03] MEDS: Linezolid 600 MG in Premix Bag 1 BAG IVPB SCH ×2 (03:54→14:42)
[2022-06-03 05:01] LABS: #Eosinphils 0.2 thou/uL (0.0-0.7); #Lymphocytes 1.4 thou/uL (1.20-3.40); #Neutrophils 10.8 thou/uL (1.40-6.50); %Basophils 0.3 % (0.0-1.0); %Eosinophils 1.2 % (0.0-10.0); %Lymphocytes 10.7 % (21.0-51.0); %Monocytes 7.6 % (0.0-10.0); %Neutrophils 80.3 % (42.0-75.0); Hemoglobin 9.4 g/dL (12.0-16.0); Mean Corpuscular HGB CONC 31.3 g/dL (32.0-36.0); Mean Corpuscular Hemoglobin 29.9 pg (27.0-31.0); Mean Corpuscular Volume 95.7 fL (78.0-98.0); Mean Platelet Volume 8.6 fL (7.4-10.4); Platelet Count 293 thou/uL (130-400); RBC Distribution Width 16.1 % (11.5-14.5); Red Blood Cell (RBC) Count 3.13 mill/uL (4.20-5.40); White Blood Cell (WBC) Count 13.4 thou/uL (4.8-10.8)
[2022-06-03 05:20] LABS: ALT (SGPT) 66 U/L (8-55); AST (SGOT) 22 U/L (5-34); Albumin 2.4 g/dL (3.5-5.0); Alkaline Phosphatase 66 U/L (40-110); Anion Gap 14 mmol/L (10-20); BUN (Urea Nitrogen) 11 mg/dL (9.8-20.1); Calc. Creatinine Clearance 202 mL/min (70-130); Calcium 8.4 mg/dL (7.8-10.44); Chloride 98 mmol/L (98-107); Estimated GFR 119; Globulin 3.8 g/dL (2.4-3.5); Glucose 129 mg/dL (70-105); Magnesium 2.1 mg/dL (1.6-2.6); Potassium 3.7 mmol/L (3.5-5.1); Protein, Total 6.2 g/dL (6.0-8.3); Sodium 141 mmol/L (136-145)
[2022-06-03 05:44] LABS: Bilirubin, Total 0.5 mg/dL (0.2-1.2); Carbon Dioxide 33 mmol/L (22-29)
[2022-06-03] MEDS: Budesonide 0.5 MG/2 ML NEB NEB SCH ×2 (06:52→18:26)
[2022-06-03] MEDS: methylPREDNISolone Sod Succ 40 MG VIAL IVP SCH (08:52)
[2022-06-03] MEDS: Lansoprazole 3 MG/ML ORAL SUSPENSION PER TUBE SCH (08:53)
[2022-06-03] MEDS: Pregabalin 75 MG CAP PO SCH ×2 (08:53→21:13)
[2022-06-03] MEDS: Potassium Bicarbonate/Cit Ac 20 MEQ TAB PO SCH (08:55)
[2022-06-03] MEDS: Losartan 25 MG TAB PO SCH (08:55)
[2022-06-03] MEDS: CeleCOXIB 100 MG CAP PER TUBE SCH ×2 (08:56→21:12)
[2022-06-03] MEDS: Montelukast Sodium 10 mg Tablet PO SCH (08:56)
[2022-06-03] MEDS: Enoxaparin Sodium 40 MG/0.4 ML SYRINGE SC SCH (09:24)
[2022-06-03] MEDS: oxyCODONE 5 MG TAB PER TUBE PRN (09:24)
[2022-06-03] MEDS ORDERED: Fentanyl 100 MCG/2 ML VIAL SLOW IVP PRN (11:42)
[2022-06-03] MEDS ORDERED: Guaifenesin DM 100-10/5 ML UDCUP PO PRN (11:43)
[2022-06-03] MEDS ORDERED: ALPRAZolam 1 MG TAB PO SCH (11:45)
[2022-06-03] MEDS: ALPRAZolam 1 MG TAB PO SCH ×2 (14:41→21:12)
[2022-06-03 16:46] LABS: Potassium 4.5 mmol/L (3.5-5.1)
[2022-06-03] MEDS: Pramipexole Di-HCl 1 MG TAB PO SCH (21:13)
[2022-06-04] MEDS: Linezolid 600 MG in Premix Bag 1 BAG IVPB SCH ×2 (03:42→16:01)
[2022-06-04] MEDS: oxyCODONE 5 MG TAB PER TUBE PRN ×3 (04:14→16:54)
[2022-06-04] MEDS: Budesonide 0.5 MG/2 ML NEB NEB SCH ×2 (06:55→18:24)
[2022-06-04 08:30] LABS: Hemoglobin 10.8 g/dL (12.0-16.0); Mean Corpuscular HGB CONC 30.6 g/dL (32.0-36.0); Mean Corpuscular Hemoglobin 29.6 pg (27.0-31.0); Mean Corpuscular Volume 96.8 fL (78.0-98.0); Mean Platelet Volume 9.2 fL (7.4-10.4); Platelet Count 298 thou/uL (130-400); RBC Distribution Width 16.3 % (11.5-14.5); Red Blood Cell (RBC) Count 3.64 mill/uL (4.20-5.40); White Blood Cell (WBC) Count 14.5 thou/uL (4.8-10.8)
[2022-06-04 08:35] LABS: ALT (SGPT) 68 U/L (8-55); AST (SGOT) 24 U/L (5-34); Albumin 2.7 g/dL (3.5-5.0); Alkaline Phosphatase 72 U/L (40-110); Anion Gap 16 mmol/L (10-20); BUN (Urea Nitrogen) 8 mg/dL (9.8-20.1); Bilirubin, Total 0.4 mg/dL (0.2-1.2); Calc. Creatinine Clearance 195 mL/min (70-130); Calcium 8.9 mg/dL (7.8-10.44); Carbon Dioxide 30 mmol/L (22-29); Chloride 100 mmol/L (98-107); Estimated GFR 119; Globulin 4.2 g/dL (2.4-3.5); Glucose 112 mg/dL (70-105); Magnesium 1.6 mg/dL (1.6-2.6); Potassium 4.3 mmol/L (3.5-5.1); Protein, Total 6.9 g/dL (6.0-8.3); Sodium 142 mmol/L (136-145)
[2022-06-04 08:45] VITALS: BMI 26.6
[2022-06-04 09:00] LABS: #Basophils 0.1 thou/uL (0.0-0.2); #Eosinphils 0.4 thou/uL (0.0-0.7); #Monocytes 1.3 thou/uL (0.11-0.59); #Neutrophils 10.8 thou/uL (1.40-6.50); %Basophils 0.7 % (0.0-1.0); %Eosinophils 2.6 % (0.0-10.0); %Lymphocytes 13.6 % (21.0-51.0); %Monocytes 8.6 % (0.0-10.0); %Neutrophils 74.5 % (42.0-75.0); Band 6 % (5-11); Eosinophils 1 % (0-10); Lymphocytes 15 % (21-51); MDiff Complete? YES; Monocytes 8 % (0-10); Neutrophil 69 % (42-75); Platelet Morphology Comment Appears Adequate; Polychromasia SLIGHT = 2-3 cells (100X) (0-2/hpf)
[2022-06-04] MEDS: Potassium Bicarbonate/Cit Ac 20 MEQ TAB PO SCH (09:01)
[2022-06-04] MEDS ORDERED: Magnesium 2 GM/50 ML(in water) 2 GM in Premix Bag 1 BAG IVPB SCH (10:00)
[2022-06-04] MEDS: Losartan 25 MG TAB PO SCH (10:43)
[2022-06-04] MEDS: ALPRAZolam 1 MG TAB PO SCH ×3 (10:43→21:11)
[2022-06-04] MEDS: Enoxaparin Sodium 40 MG/0.4 ML SYRINGE SC SCH (10:43)
[2022-06-04] MEDS: methylPREDNISolone Sod Succ 40 MG VIAL IVP SCH (10:44)
[2022-06-04] MEDS: Pregabalin 75 MG CAP PO SCH ×2 (10:54→21:11)
[2022-06-04] MEDS: Montelukast Sodium 10 mg Tablet PO SCH (10:55)
[2022-06-04] MEDS: Lansoprazole 3 MG/ML ORAL SUSPENSION PER TUBE SCH (10:56)
[2022-06-04] MEDS: CeleCOXIB 100 MG CAP PER TUBE SCH ×2 (11:01→21:10)
[2022-06-04] MEDS: Scopolamine 1.5 mg/72 hour Patch TD SCH (12:23)
[2022-06-04] MEDS: Pramipexole Di-HCl 1 MG TAB PO SCH (21:11)
[2022-06-05] MEDS: Linezolid 600 MG in Premix Bag 1 BAG IVPB SCH (03:52)
[2022-06-05 04:53] LABS: ALT (SGPT) 60 U/L (8-55); AST (SGOT) 23 U/L (5-34); Albumin 2.7 g/dL (3.5-5.0); Alkaline Phosphatase 67 U/L (40-110); Anion Gap 12 mmol/L (10-20); BUN (Urea Nitrogen) 14 mg/dL (9.8-20.1); Bilirubin, Total 0.2 mg/dL (0.2-1.2); Calc. Creatinine Clearance 195 mL/min (70-130); Calcium 8.9 mg/dL (7.8-10.44); Carbon Dioxide 35 mmol/L (22-29); Chloride 95 mmol/L (98-107); Estimated GFR 119; Globulin 4.3 g/dL (2.4-3.5); Glucose 96 mg/dL (70-105); Magnesium 1.8 mg/dL (1.6-2.6); Potassium 3.8 mmol/L (3.5-5.1); Sodium 138 mmol/L (136-145)
[2022-06-05 05:01] LABS: #Eosinphils 0.4 thou/uL (0.0-0.7); #Lymphocytes 1.8 thou/uL (1.20-3.40); #Monocytes 0.9 thou/uL (0.11-0.59); #Neutrophils 7.7 thou/uL (1.40-6.50); %Basophils 0.2 % (0.0-1.0); %Eosinophils 3.5 % (0.0-10.0); %Lymphocytes 16.3 % (21.0-51.0); %Monocytes 8.5 % (0.0-10.0); %Neutrophils 71.4 % (42.0-75.0); Hemoglobin 10.2 g/dL (12.0-16.0); Mean Corpuscular HGB CONC 29.4 g/dL (32.0-36.0); Mean Corpuscular Hemoglobin 29.1 pg (27.0-31.0); Mean Corpuscular Volume 98.9 fL (78.0-98.0); Mean Platelet Volume 8.7 fL (7.4-10.4); Platelet Count 304 thou/uL (130-400); RBC Distribution Width 16.1 % (11.5-14.5); Red Blood Cell (RBC) Count 3.49 mill/uL (4.20-5.40); White Blood Cell (WBC) Count 10.7 thou/uL (4.8-10.8)
[2022-06-05] MEDS ORDERED: Magnesium 2 GM/50 ML(in water) 2 GM in Premix Bag 1 BAG IVPB SCH (06:00)
[2022-06-05] MEDS: Budesonide 0.5 MG/2 ML NEB NEB SCH (06:50)
[2022-06-05] MEDS: ALPRAZolam 1 MG TAB PO SCH (08:13)
[2022-06-05] MEDS: CeleCOXIB 100 MG CAP PER TUBE SCH (08:13)
[2022-06-05] MEDS: Potassium Bicarbonate/Cit Ac 20 MEQ TAB PO SCH (08:13)
[2022-06-05] MEDS: Enoxaparin Sodium 40 MG/0.4 ML SYRINGE SC SCH (08:14)
[2022-06-05] MEDS: Montelukast Sodium 10 mg Tablet PO SCH (08:14)
[2022-06-05] MEDS: methylPREDNISolone Sod Succ 40 MG VIAL IVP SCH (08:14)
[2022-06-05] MEDS: Pregabalin 75 MG CAP PO SCH (08:14)
[2022-06-05] MEDS: Losartan 25 MG TAB PO SCH (08:14)
[2022-06-05] MEDS: Lansoprazole 3 MG/ML ORAL SUSPENSION PER TUBE SCH (09:01)
[2022-06-05] MEDS ORDERED: Acetaminophen 500 MG TAB PER TUBE PRN (12:14)
[2022-06-05] MEDS ORDERED: Guaifenesin DM 100-10/5 ML UDCUP PER TUBE PRN (12:14)
[2022-06-05 12:20] VITALS: TEMP 99
[2022-06-05] MEDS ORDERED: Montelukast Sodium 10 mg Tablet PER TUBE SCH (13:15)
[2022-06-05] MEDS ORDERED: Losartan 25 MG TAB PER TUBE SCH (13:15)
[2022-06-05] MEDS ORDERED: Potassium Bicarbonate/Cit Ac 20 MEQ TAB PER TUBE SCH (13:15)
[2022-06-05] MEDS ORDERED: Pregabalin 75 MG CAP PER TUBE SCH ×2 (13:15→21:00)
[2022-06-05 13:32] VITALS: BP 110/65
[2022-06-05] MEDS ORDERED: ALPRAZolam 1 MG TAB PER TUBE SCH (15:00)
[2022-06-05] MEDS ORDERED: Pramipexole Di-HCl 1 MG TAB PER TUBE SCH (21:00)
[2022-06-06] MEDS ORDERED: Potassium Bicarbonate/Cit Ac 20 MEQ TAB PER TUBE SCH (08:00)
[2022-06-06] MEDS ORDERED: Losartan 25 MG TAB PER TUBE SCH (09:00)
[2022-06-06] MEDS ORDERED: Montelukast Sodium 10 mg Tablet PER TUBE SCH (09:00)
== END 2022-06-05 15:10 | DRG 3 ==
LOC: ERS 02:46 → ERHOLD 04:43 → CCU 07:17
PROVIDERS: ADMIT Family Medicine; ATTEND Family Medicine
PROC: 5A1955Z Respiratory Ventilation, Greater than 96 Consecutive Hours (ICD-10-PCS; principal; 2022-05-08)
PROC: 0D9670Z Drainage of Stomach with Drainage Device, Via Natural or Artificial Opening (ICD-10-PCS; 2022-05-08)
PROC: 3E0G76Z Introduction of Nutritional Substance into Upper GI, Via Natural or Artificial Opening (ICD-10-PCS; 2022-05-08)
PROC: 3E033XZ Introduction of Vasopressor into Peripheral Vein, Percutaneous Approach (ICD-10-PCS; 2022-05-11)
PROC: 06HY33Z Insertion of Infusion Device into Lower Vein, Percutaneous Approach (ICD-10-PCS; 2022-05-14)
PROC: 8E0ZXY6 Isolation (ICD-10-PCS; 2022-05-14)
PROC: 0BCF8ZZ Extirpation of Matter from Right Lower Lung Lobe, Via Natural or Artificial Opening Endoscopic (ICD-10-PCS; 2022-05-25)
PROC: 0BCD8ZZ Extirpation of Matter from Right Middle Lung Lobe, Via Natural or Artificial Opening Endoscopic (ICD-10-PCS; 2022-05-25)
PROC: 0BC38ZZ Extirpation of Matter from Right Main Bronchus, Via Natural or Artificial Opening Endoscopic (ICD-10-PCS; 2022-05-25)
PROC: 0W993ZX Drainage of Right Pleural Cavity, Percutaneous Approach, Diagnostic (ICD-10-PCS; 2022-05-27)
PROC: 0B113F4 Bypass Trachea to Cutaneous with Tracheostomy Device, Percutaneous Approach (ICD-10-PCS; 2022-05-30)
PROC: 02PYX3Z Removal of Infusion Device from Great Vessel, External Approach (ICD-10-PCS; 2022-05-31)
PROC: 0W9930Z Drainage of Right Pleural Cavity with Drainage Device, Percutaneous Approach (ICD-10-PCS; 2022-06-01)
DX: J44.1 Chronic obstructive pulmonary disease with (acute) exacerbation (principal); T80.211A Bloodstream infection due to central venous catheter, initial encounter; J96.21 Acute and chronic respiratory failure with hypoxia; U07.1 COVID-19; J86.9 Pyothorax without fistula; K65.1 Peritoneal abscess; J96.22 Acute and chronic respiratory failure with hypercapnia; J15.212 Pneumonia due to Methicillin resistant Staphylococcus aureus; I50.32 Chronic diastolic (congestive) heart failure; J45.901 Unspecified asthma with (acute) exacerbation; T81.31XA Disruption of external operation (surgical) wound, not elsewhere classified, initial encounter; T81.43XA Infection following a procedure, organ and space surgical site, initial encounter; E87.0 Hyperosmolality and hypernatremia; E87.4 Mixed disorder of acid-base balance; J95.851 Ventilator associated pneumonia; R78.81 Bacteremia; G72.81 Critical illness myopathy; G62.81 Critical illness polyneuropathy; J91.8 Pleural effusion in other conditions classified elsewhere; Z99.11 Dependence on respirator [ventilator] status; Z66 Do not resuscitate; Z51.5 Encounter for palliative care; I25.10 Atherosclerotic heart disease of native coronary artery without angina pectoris; F41.9 Anxiety disorder, unspecified; G89.4 Chronic pain syndrome; F32.A Depression, unspecified; K43.9 Ventral hernia without obstruction or gangrene; M79.7 Fibromyalgia; E78.5 Hyperlipidemia, unspecified; I11.0 Hypertensive heart disease with heart failure; E88.09 Other disorders of plasma-protein metabolism, not elsewhere classified; R73.9 Hyperglycemia, unspecified; U09.9 Post COVID-19 condition, unspecified; Y83.8 Other surgical procedures as the cause of abnormal reaction of the patient, or of later complication, without mention of misadventure at the time of the procedure; J38.3 Other diseases of vocal cords; F44.7 Conversion disorder with mixed symptom presentation; B95.62 Methicillin resistant Staphylococcus aureus infection as the cause of diseases classified elsewhere; R23.2 Flushing; I49.3 Ventricular premature depolarization; E87.6 Hypokalemia; T36.8X5A Adverse effect of other systemic antibiotics, initial encounter; R74.01 Elevation of levels of liver transaminase levels; J44.0 Chronic obstructive pulmonary disease with (acute) lower respiratory infection; L27.0 Generalized skin eruption due to drugs and medicaments taken internally; R74.8 Abnormal levels of other serum enzymes; E83.42 Hypomagnesemia; Y83.1 Surgical operation with implant of artificial internal device as the cause of abnormal reaction of the patient, or of later complication, without mention of misadventure at the time of the procedure; Y95 Nosocomial condition; Z82.49 Family history of ischemic heart disease and other diseases of the circulatory system; Z78.1 Physical restraint status; Z28.310 Unvaccinated for COVID-19; I25.2 Old myocardial infarction; Z90.49 Acquired absence of other specified parts of digestive tract; Z90.710 Acquired absence of both cervix and uterus; Z90.89 Acquired absence of other organs; Z98.1 Arthrodesis status; Z87.891 Personal history of nicotine dependence; Z86.14 Personal history of Methicillin resistant Staphylococcus aureus infection; Z88.6 Allergy status to analgesic agent; Z88.1 Allergy status to other antibiotic agents; Z88.5 Allergy status to narcotic agent; Z88.0 Allergy status to penicillin; Z88.8 Allergy status to other drugs, medicaments and biological substances; Z79.899 Other long term (current) drug therapy; Z79.82 Long term (current) use of aspirin; Z79.52 Long term (current) use of systemic steroids; Z87.19 Personal history of other diseases of the digestive system
CPT/HCPCS: 31624; 36415; 36416; 36600; 51702; 70450; 71045; 71260; 74018; 74177; 80053; 80198; 80202; 82150; 82805; 82945; 83036; 83615; 83735; 83880; 83986; 84145; 84157; 84478; 84484; 85025; 85060; 86769; 87040; 87070; 87077; 87107; 87116; 87149; 87186; 87205; 87206; 87324; 87449; 87633; 88112; 88305; 88312; 88341; 88342; 89051; 93923; 94002; 94003; 94640; 94644; 96374; 97139; C9113; J0171; J0280; J0360; J0456; J0692; J1120; J1200; J1650; J1940; J2001; J2020; J2060; J2185; J2248; J2250; J2270; J2704; J2920; J3010; J3370; J3475; J3480; J3490; J7030; J7050; J7070; J7611; J7620; J7626; Q9963; Q9967; U0002; U0003; U0005

== ENCOUNTER 2022-08-30 10:42 | Inpatient (IN) | payer BC, MEDICARE ==
[2022-08-30] MEDS ORDERED: HYDROcodone/Acetaminophen 5/325 mg Tablet ONE (12:17)
[2022-08-30] MEDS ORDERED: Aspirin Chewable 81 MG TAB ONE (12:18)
[2022-08-30] MEDS ORDERED: methylPREDNISolone Sod Succ/PF 125 MG/2 ML VIAL ONE (12:18)
[2022-08-30] MEDS ORDERED: Cefepime 2 GM VIAL ONE (12:18)
[2022-08-30 12:23] LABS: #Basophils 0.1 thou/uL (0.0-0.2); #Eosinphils 0.9 thou/uL (0.0-0.7); #Lymphocytes 1.1 thou/uL (1.20-3.40); #Monocytes 0.6 thou/uL (0.11-0.59); #Neutrophils 11.3 thou/uL (1.40-6.50); %Basophils 0.4 % (0.0-1.0); %Eosinophils 6.5 % (0.0-10.0); %Lymphocytes 7.8 % (21.0-51.0); %Monocytes 4.5 % (0.0-10.0); %Neutrophils 80.7 % (42.0-75.0); Hemoglobin 13.4 g/dL (12.0-16.0); Mean Corpuscular Hemoglobin 27.2 pg (27.0-31.0); Mean Corpuscular Volume 90.6 fL (78.0-98.0); Mean Platelet Volume 8.5 fL (7.4-10.4); Platelet Count 294 thou/uL (130-400); RBC Distribution Width 17.4 % (11.5-14.5); Red Blood Cell (RBC) Count 4.91 mill/uL (4.20-5.40)
[2022-08-30 12:38] LABS: ALT (SGPT) 26 U/L (8-55); AST (SGOT) 18 U/L (5-34); Albumin 3.5 g/dL (3.5-5.0); Alkaline Phosphatase 69 U/L (40-110); Anion Gap 14 mmol/L (10-20); BUN (Urea Nitrogen) 21 mg/dL (9.8-20.1); Bilirubin, Total 0.3 mg/dL (0.2-1.2); Calc. Creatinine Clearance 0 mL/min (70-130); Calcium 9.1 mg/dL (7.8-10.44); Carbon Dioxide 28 mmol/L (22-29); Chloride 104 mmol/L (98-107); Estimated GFR 103; Globulin 2.9 g/dL (2.4-3.5); Glucose 142 mg/dL (70-105); Lipase 53 U/L (8-78); Potassium 4.5 mmol/L (3.5-5.1); Protein, Total 6.4 g/dL (6.0-8.3); Sodium 141 mmol/L (136-145)
[2022-08-30] MEDS ORDERED: Albuterol Sulfate 2.5 mg/0.5 ml Neb ONE (12:40)
[2022-08-30 13:08] LABS: CKMB 7.5 ng/mL (0-6.6)
[2022-08-30 13:20] LABS: Bacteria/HPF None Seen HPF (None Seen); Bilirubin Negative (Negative); Blood, Urine Negative (Negative); Clarity Clear (Clear); Glucose, Urine (Dipstick) Normal (Negative); Ketone, Urine Negative (Negative); Leukocyte 25 Leu/uL (Negative); Nitrite Negative (Negative); Protein, Urine (Dipstick) 10 mg/dL (Neg-Trace); RBC/HPF 0-3 HPF (0-3); Specific Gravity, Urine 1.036 (1.002-1.036); Squamous Epithelial 0-3 HPF (0-3); WBC/HPF 0-3 HPF (0-3)
[2022-08-30 13:21] LABS: Calcium Oxalate Crystals 1+ HPF (None Seen)
[2022-08-30 13:24] LABS: SARS-CoV-2 NAA Rapid Test Not Detected (NotDetected)
[2022-08-30] MEDS ORDERED: Albuterol Sulfate 2.5 mg/3 ml Neb NEB PRN (15:06)
[2022-08-30] MEDS ORDERED: Ipratropium Bromide 2.5 ml Neb NEB PRN (15:06)
[2022-08-30] MEDS ORDERED: Acetaminophen 325 MG TAB PO PRN (15:11)
[2022-08-30] MEDS ORDERED: Morphine 2 MG/ML VIAL SLOW IVP PRN (15:37)
[2022-08-30] MEDS ORDERED: Morphine 4 MG/ML VIAL SLOW IVP PRN (15:38)
[2022-08-30] MEDS ORDERED: Mometasone 200 MCG/Formoterol 5 MCG 120 PUFF INHALER INH SCH (15:45)
[2022-08-30] MEDS ORDERED: Mometasone/Formoterol 200/5 60 PUFF INH SCH (15:45)
[2022-08-30 15:50] LABS: Troponin I 0.041 ng/mL (< 0.028)
[2022-08-30] MEDS ORDERED: HYDROmorphone 0.5 MG/0.5 ML SYRINGE ONE (17:17)
[2022-08-30] MEDS ORDERED: Magnesium Oxide 400 MG TAB PO SCH (17:30)
[2022-08-30 18:00] VITALS: BMI 29.0
[2022-08-30] MEDS ORDERED: Arformoterol 15 MCG/2 ML NEB NEB SCH (18:30)
[2022-08-30] MEDS: methylPREDNISolone Sod Succ 40 MG VIAL IVP SCH (18:32)
[2022-08-30 19:50] LABS: Troponin I 0.013 ng/mL (< 0.028)
[2022-08-30] MEDS: traZODone HCl 50 MG TAB PO SCH (20:06)
[2022-08-30] MEDS: Cefepime 1 GM in Sodium Chloride 0.9% 100 ML IVPB SCH (20:06)
[2022-08-30] MEDS: Furosemide 20 MG TAB PO SCH (20:06)
[2022-08-30] MEDS: Pregabalin 75 MG CAP PO SCH (20:06)
[2022-08-30] MEDS: Pramipexole Di-HCl 1 MG TAB PO SCH (20:06)
[2022-08-30] MEDS: oxyCODONE/Acetaminophen 5 mg/325 mg Tablet PO PRN (20:08)
[2022-08-31] MEDS: methylPREDNISolone Sod Succ 40 MG VIAL IVP SCH ×3 (01:24→11:40)
[2022-08-31] MEDS: oxyCODONE/Acetaminophen 5 mg/325 mg Tablet PO PRN ×3 (02:13→18:14)
[2022-08-31] MEDS ORDERED: hydrOXYzine Pamoate 25 mg Capsule PO SCH (02:15)
[2022-08-31 04:30] LABS: #Lymphocytes 1.4 thou/uL (1.20-3.40); #Monocytes 0.6 thou/uL (0.11-0.59); #Neutrophils 15.1 thou/uL (1.40-6.50); %Basophils 0.1 % (0.0-1.0); %Eosinophils 0.1 % (0.0-10.0); %Lymphocytes 8.4 % (21.0-51.0); %Monocytes 3.5 % (0.0-10.0); Hemoglobin 12.8 g/dL (12.0-16.0); Mean Corpuscular HGB CONC 30.3 g/dL (32.0-36.0); Mean Corpuscular Hemoglobin 27.7 pg (27.0-31.0); Mean Corpuscular Volume 91.5 fL (78.0-98.0); Mean Platelet Volume 8.1 fL (7.4-10.4); Platelet Count 295 thou/uL (130-400); RBC Distribution Width 16.9 % (11.5-14.5); Red Blood Cell (RBC) Count 4.61 mill/uL (4.20-5.40); White Blood Cell (WBC) Count 17.1 thou/uL (4.8-10.8)
[2022-08-31 04:47] LABS: Anion Gap 14 mmol/L (10-20); BUN (Urea Nitrogen) 22 mg/dL (9.8-20.1); Calc. Creatinine Clearance 127 mL/min (70-130); Calcium 8.8 mg/dL (7.8-10.44); Carbon Dioxide 25 mmol/L (22-29); Chloride 104 mmol/L (98-107); Estimated GFR 104; Glucose 147 mg/dL (70-105); Potassium 4.3 mmol/L (3.5-5.1); Sodium 139 mmol/L (136-145)
[2022-08-31] MEDS: Mometasone 200 MCG/Formoterol 5 MCG 120 PUFF INHALER INH SCH ×2 (08:02→18:44)
[2022-08-31] MEDS ORDERED: Estradiol 1 MG TAB PO SCH (09:00)
[2022-08-31] MEDS ORDERED: ALPRAZolam 1 MG TAB PO SCH (09:00)
[2022-08-31] MEDS ORDERED: ALPRAZolam 1 MG TAB PO PRN (09:00)
[2022-08-31] MEDS: Pregabalin 75 MG CAP PO SCH ×3 (09:12→20:16)
[2022-08-31] MEDS: Aspirin 81 mg Enteric Coated Tablet PO SCH (09:14)
[2022-08-31] MEDS: DULoxetine 60 MG CAP PO SCH (09:14)
[2022-08-31] MEDS: Cefepime 1 GM in Sodium Chloride 0.9% 100 ML IVPB SCH (09:14)
[2022-08-31] MEDS: Montelukast Sodium 10 mg Tablet PO SCH (09:14)
[2022-08-31] MEDS: Furosemide 20 MG TAB PO SCH ×2 (09:14→20:16)
[2022-08-31] MEDS: Magnesium Oxide 400 MG TAB PO SCH ×3 (09:14→15:56)
[2022-08-31] MEDS: Docusate 100 MG CAP PO SCH (09:14)
[2022-08-31] MEDS ORDERED: Iopamidol-370 76% 500 ML 1 ML ONE ×2 (11:14→11:16)
[2022-08-31] MEDS: Methocarbamol 500 MG TAB PO PRN ×2 (11:40→19:10)
[2022-08-31] MEDS: traZODone HCl 50 MG TAB PO SCH (20:15)
[2022-08-31] MEDS ORDERED: GUAIFENESIN SF SOLN 200 MG/10 ML UDCUP PO PRN (20:37)
[2022-08-31] MEDS ORDERED: Benzonatate 100 MG CAP PO PRN (20:37)
[2022-08-31] MEDS: Pramipexole Di-HCl 1 MG TAB PO SCH (21:02)
[2022-08-31] MEDS: Cefepime 2 GM in Sodium Chloride 0.9% 100 ML IVPB SCH (21:02)
[2022-09-01] MEDS: oxyCODONE/Acetaminophen 5 mg/325 mg Tablet PO PRN ×2 (00:08→06:13)
[2022-09-01 05:20] LABS: #Eosinphils 0.2 thou/uL (0.0-0.7); #Lymphocytes 3.3 thou/uL (1.20-3.40); #Monocytes 1.6 thou/uL (0.11-0.59); %Basophils 0.1 % (0.0-1.0); %Eosinophils 1.1 % (0.0-10.0); %Lymphocytes 20.6 % (21.0-51.0); %Monocytes 9.9 % (0.0-10.0); %Neutrophils 68.2 % (42.0-75.0); Hemoglobin 12.1 g/dL (12.0-16.0); Mean Corpuscular Hemoglobin 27.4 pg (27.0-31.0); Mean Corpuscular Volume 91.3 fL (78.0-98.0); Mean Platelet Volume 8.2 fL (7.4-10.4); Platelet Count 269 thou/uL (130-400); RBC Distribution Width 17.3 % (11.5-14.5); White Blood Cell (WBC) Count 16.2 thou/uL (4.8-10.8)
[2022-09-01 05:24] LABS: Anion Gap 13 mmol/L (10-20); BUN (Urea Nitrogen) 20 mg/dL (9.8-20.1); Calc. Creatinine Clearance 135 mL/min (70-130); Calcium 8.6 mg/dL (7.8-10.44); Carbon Dioxide 27 mmol/L (22-29); Chloride 104 mmol/L (98-107); Estimated GFR 106; Glucose 86 mg/dL (70-105); Potassium 4.1 mmol/L (3.5-5.1); Sodium 140 mmol/L (136-145)
[2022-09-01] MEDS: Mometasone 200 MCG/Formoterol 5 MCG 120 PUFF INHALER INH SCH (07:46)
[2022-09-01] MEDS ORDERED: predniSONE 20 MG TAB PO SCH (08:00)
[2022-09-01 08:38] VITALS: BP 121/66; TEMP 98.1
[2022-09-01] MEDS: Cefepime 2 GM in Sodium Chloride 0.9% 100 ML IVPB SCH (09:26)
[2022-09-01] MEDS: Aspirin 81 mg Enteric Coated Tablet PO SCH (09:27)
[2022-09-01] MEDS: Furosemide 20 MG TAB PO SCH (09:27)
[2022-09-01] MEDS: Docusate 100 MG CAP PO SCH (09:27)
[2022-09-01] MEDS: Montelukast Sodium 10 mg Tablet PO SCH (09:27)
[2022-09-01] MEDS: Pregabalin 75 MG CAP PO SCH (09:27)
[2022-09-01] MEDS: Magnesium Oxide 400 MG TAB PO SCH (09:27)
[2022-09-01] MEDS: DULoxetine 60 MG CAP PO SCH (09:28)
[2022-09-02] MEDS ORDERED: FLU VACC QS2022-23(6MOS UP)/PF 60 MCG/0.5 ML SYRINGE IM ONE (09:00)
== END 2022-09-01 12:05 | disposition home health service (06) | DRG 190 ==
LOC: ERS 10:42 → ERHOLD 15:03 → 2NO 17:30 → MSONC 08-31 16:39
PROVIDERS: ADMIT Internal Medicine; ATTEND Internal Medicine
DX: J44.0 Chronic obstructive pulmonary disease with (acute) lower respiratory infection (principal); J18.9 Pneumonia, unspecified organism; I50.32 Chronic diastolic (congestive) heart failure; I11.0 Hypertensive heart disease with heart failure; J44.1 Chronic obstructive pulmonary disease with (acute) exacerbation; I25.2 Old myocardial infarction; I25.10 Atherosclerotic heart disease of native coronary artery without angina pectoris; G47.33 Obstructive sleep apnea (adult) (pediatric); Z99.81 Dependence on supplemental oxygen; Z90.710 Acquired absence of both cervix and uterus; E66.9 Obesity, unspecified; Z88.1 Allergy status to other antibiotic agents; Z88.0 Allergy status to penicillin; Z88.8 Allergy status to other drugs, medicaments and biological substances; Z79.82 Long term (current) use of aspirin; Z79.899 Other long term (current) drug therapy; Z87.891 Personal history of nicotine dependence; U09.9 Post COVID-19 condition, unspecified; G89.29 Other chronic pain; F41.9 Anxiety disorder, unspecified; Z98.1 Arthrodesis status; K43.9 Ventral hernia without obstruction or gangrene; Z20.822 Contact with and (suspected) exposure to COVID-19; Z28.311 Partially vaccinated for COVID-19; Z90.49 Acquired absence of other specified parts of digestive tract; Z68.29 Body mass index [BMI] 29.0-29.9, adult
CPT/HCPCS: 36415; 71045; 74177; 80048; 80053; 81003; 81015; 82553; 83605; 83690; 83880; 84484; 85025; 87040; 93005; 94640; 96365; 96375; 97139; J0692; J1170; J2920; J2930; J3490; J7512; J7611; J7620; Q0177; Q9967

== ENCOUNTER 2022-09-20 06:28 | Inpatient (IN) | payer BC, MEDICARE ==
[2022-09-20 07:07] LABS: Actual Bicarbonate (HCO3v) 27 mEq/L (22-28); Base Excess 2.3 mEq/L (-2.0 to +3.0); Chloride (VBG) 103 mmol/L (98-106); Hemoglobin (Hb) 14.7 g/dL (11.7-16.0); Sodium 138.2 mmol/L (133-146); pH (venous) 7.42 (7.32-7.43)
[2022-09-20 07:08] LABS: #Eosinphils 2.4 thou/uL (0.0-0.7); #Monocytes 0.9 thou/uL (0.11-0.59); #Neutrophils 13.1 thou/uL (1.40-6.50); %Basophils 0.3 % (0.0-1.0); %Eosinophils 13.1 % (0.0-10.0); %Lymphocytes 10.7 % (21.0-51.0); %Monocytes 4.9 % (0.0-10.0); Hemoglobin 13.7 g/dL (12.0-16.0); Mean Corpuscular HGB CONC 30.9 g/dL (32.0-36.0); Mean Corpuscular Hemoglobin 27.8 pg (27.0-31.0); Mean Platelet Volume 8.2 fL (7.4-10.4); Platelet Count 255 thou/uL (130-400); RBC Distribution Width 17.4 % (11.5-14.5); Red Blood Cell (RBC) Count 4.91 mill/uL (4.20-5.40); White Blood Cell (WBC) Count 18.5 thou/uL (4.8-10.8)
[2022-09-20 07:33] LABS: ALT (SGPT) 25 U/L (8-55); AST (SGOT) 18 U/L (5-34); Albumin 3.4 g/dL (3.5-5.0); Alkaline Phosphatase 65 U/L (40-110); Anion Gap 12 mmol/L (10-20); BUN (Urea Nitrogen) 13 mg/dL (9.8-20.1); Bilirubin, Total 0.5 mg/dL (0.2-1.2); Calc. Creatinine Clearance 0 mL/min (70-130); Carbon Dioxide 28 mmol/L (22-29); Chloride 103 mmol/L (98-107); Estimated GFR 104; Glucose 120 mg/dL (70-105); Lipase 64 U/L (8-78); Potassium 3.9 mmol/L (3.5-5.1); Protein, Total 6.4 g/dL (6.0-8.3); Sodium 139 mmol/L (136-145)
[2022-09-20] MEDS ORDERED: Albuterol Sulfate 2.5 mg/0.5 ml Neb ONE (08:15)
[2022-09-20] MEDS ORDERED: Azithromycin 500 MG VIAL ONE (08:15)
[2022-09-20] MEDS ORDERED: Albuterol Sulfate 2.5 mg/3 ml Neb NEB PRN (09:15)
[2022-09-20] MEDS ORDERED: Ondansetron ODT 4 MG TAB PO PRN (09:18)
[2022-09-20] MEDS ORDERED: Acetaminophen 325 MG TAB PO PRN (09:18)
[2022-09-20] MEDS ORDERED: Ondansetron PF 4 MG/2 ML Vial IVP PRN (09:18)
[2022-09-20] MEDS ORDERED: Furosemide 40 MG/4 ML VIAL SLOW IVP SCH (09:30)
[2022-09-20 10:49] VITALS: BMI 29.5
[2022-09-20] MEDS ORDERED: Non-Formulary Item 1 EACH (Methocarbamol [Methocarbamol] 750 MG Tablet) PO PRN (11:35)
[2022-09-20] MEDS ORDERED: oxyCODONE/Acetaminophen 5 mg/325 mg Tablet PO PRN (11:35)
[2022-09-20] MEDS ORDERED: Iopamidol-370 76% 500 ML 1 ML ONE (12:25)
[2022-09-20] MEDS: methylPREDNISolone Sod Succ 40 MG VIAL IVP SCH ×3 (12:33→22:54)
[2022-09-20] MEDS ORDERED: CeleCOXIB 100 MG CAP PO PRN (16:39)
[2022-09-20] MEDS: oxyCODONE/Acetaminophen 5 mg/325 mg Tablet PO PRN ×2 (17:09→21:47)
[2022-09-20] MEDS: ALPRAZolam 1 MG TAB PO SCH ×2 (17:09→20:54)
[2022-09-20] MEDS: Pregabalin 75 MG CAP PO SCH ×2 (17:09→20:57)
[2022-09-20] MEDS: Azithromycin 500 MG in Sodium Chloride 0.9% 250 ML 250 ML IVPB SCH (18:23)
[2022-09-20] MEDS: Mometasone 100 MCG/Formoterol 5 MCG 120 PUFF INHALER INH SCH (18:46)
[2022-09-20] MEDS: Montelukast Sodium 10 mg Tablet PO SCH (20:57)
[2022-09-20] MEDS: Baclofen 10 MG TAB PO SCH (20:57)
[2022-09-20] MEDS: Furosemide 20 MG TAB PO SCH (20:57)
[2022-09-20] MEDS: Pramipexole Di-HCl 1 MG TAB PO SCH (20:57)
[2022-09-20] MEDS: traZODone HCl 50 MG TAB PO SCH (20:57)
[2022-09-20] MEDS ORDERED: Non-Formulary Item 1 EACH (Pramipexole Di-Hcl [Mirapex] 0.5 MG Tablet) PO SCH (21:00)
[2022-09-20] MEDS ORDERED: Non-Formulary Item 1 EACH (Trazodone Hcl [Trazodone Hcl] 100 MG Tablet) PO SCH (21:00)
[2022-09-20] MEDS ORDERED: Furosemide 20 MG/2 ML VIAL SLOW IVP SCH (22:30)
[2022-09-21] MEDS ORDERED: diphenhydrAMINE 25 MG CAP PO SCH (00:45)
[2022-09-21] MEDS: ALPRAZolam 1 MG TAB PO SCH ×3 (04:41→20:18)
[2022-09-21 04:45] LABS: Anion Gap 13 mmol/L (10-20); BUN (Urea Nitrogen) 20 mg/dL (9.8-20.1); Calc. Creatinine Clearance 124 mL/min (70-130); Calcium 9.1 mg/dL (7.8-10.44); Carbon Dioxide 29 mmol/L (22-29); Chloride 101 mmol/L (98-107); Estimated GFR 102; Glucose 162 mg/dL (70-105); Potassium 4.2 mmol/L (3.5-5.1); Sodium 139 mmol/L (136-145)
[2022-09-21] MEDS: methylPREDNISolone Sod Succ 40 MG VIAL IVP SCH ×3 (05:01→23:27)
[2022-09-21 05:18] LABS: Hemoglobin 12.5 g/dL (12.0-16.0); Lymphocytes 6 % (21-51); MDiff Complete? YES; Mean Corpuscular HGB CONC 31.5 g/dL (32.0-36.0); Mean Corpuscular Hemoglobin 28.4 pg (27.0-31.0); Mean Corpuscular Volume 90.3 fl (78.0-98.0); Mean Platelet Volume 8.1 fL (7.4-10.4); Monocytes 1 % (0-10); Neutrophil 93 % (42-75); Platelet Count 273 thou/uL (130-400); RBC Distribution Width 17.1 % (11.5-14.5); Red Blood Cell (RBC) Count 4.39 mill/uL (4.20-5.40); Tear Drops SLIGHT = 2-5 cells (100X) (0-1/hpf); White Blood Cell (WBC) Count 21.3 thou/uL (4.8-10.8)
[2022-09-21] MEDS: Mometasone 100 MCG/Formoterol 5 MCG 120 PUFF INHALER INH SCH ×2 (06:51→19:03)
[2022-09-21] MEDS: Methocarbamol 500 MG TAB PO PRN (07:13)
[2022-09-21] MEDS: oxyCODONE/Acetaminophen 5 mg/325 mg Tablet PO PRN ×2 (07:14→20:50)
[2022-09-21] MEDS ORDERED: Non-Formulary Item 1 EACH (Estradiol [Estradiol] 2 MG Tablet) PO SCH (09:00)
[2022-09-21] MEDS: Aspirin 81 mg Enteric Coated Tablet PO SCH (09:55)
[2022-09-21] MEDS: Estradiol 1 MG TAB PO SCH (09:55)
[2022-09-21] MEDS: Baclofen 10 MG TAB PO SCH ×3 (09:55→20:18)
[2022-09-21] MEDS: Docusate 100 MG CAP PO SCH (09:55)
[2022-09-21] MEDS: DULoxetine 60 MG CAP PO SCH (09:55)
[2022-09-21] MEDS: Pregabalin 75 MG CAP PO SCH ×4 (09:56→20:43)
[2022-09-21] MEDS: Enoxaparin Sodium 40 MG/0.4 ML SYRINGE SC SCH (09:56)
[2022-09-21] MEDS: Azithromycin 500 MG in Sodium Chloride 0.9% 250 ML 250 ML IVPB SCH (11:45)
[2022-09-21] MEDS: Furosemide 20 MG TAB PO SCH (11:47)
[2022-09-21] MEDS ORDERED: HYDROmorphone 0.5 MG/0.5 ML SYRINGE SLOW IVP SCH (13:15)
[2022-09-21] MEDS ORDERED: HYDROmorphone 0.5 MG/0.5 ML SYRINGE SLOW IVP PRN (19:12)
[2022-09-21] MEDS ORDERED: Naloxone HCl 0.4 mg/ml Vial IV PRN (19:14)
[2022-09-21] MEDS: traZODone HCl 50 MG TAB PO SCH (20:18)
[2022-09-21] MEDS: Montelukast Sodium 10 mg Tablet PO SCH (20:18)
[2022-09-21] MEDS: Pramipexole Di-HCl 1 MG TAB PO SCH (20:19)
[2022-09-21] MEDS ORDERED: methylPREDNISolone Sod Succ 40 MG VIAL IVP SCH (21:00)
[2022-09-22] MEDS: Benzonatate 100 MG CAP PO PRN (00:34)
[2022-09-22] MEDS: oxyCODONE/Acetaminophen 5 mg/325 mg Tablet PO PRN ×3 (00:54→21:08)
[2022-09-22] MEDS: Methocarbamol 500 MG TAB PO PRN ×2 (03:42→19:28)
[2022-09-22 04:32] LABS: Anion Gap 13 mmol/L (10-20); BUN (Urea Nitrogen) 21 mg/dL (9.8-20.1); Calc. Creatinine Clearance 134 mL/min (70-130); Calcium 9.4 mg/dL (7.8-10.44); Carbon Dioxide 29 mmol/L (22-29); Chloride 104 mmol/L (98-107); Estimated GFR 106; Glucose 124 mg/dL (70-105); Potassium 4.7 mmol/L (3.5-5.1); Sodium 141 mmol/L (136-145)
[2022-09-22] MEDS ORDERED: ALPRAZolam 1 MG TAB PO SCH (04:45)
[2022-09-22 04:56] LABS: Band 5 % (5-11); Hemoglobin 12.2 g/dL (12.0-16.0); Lymphocytes 5 % (21-51); MDiff Complete? YES; Mean Corpuscular HGB CONC 30.5 g/dL (32.0-36.0); Mean Corpuscular Hemoglobin 28.1 pg (27.0-31.0); Mean Corpuscular Volume 92.4 fl (78.0-98.0); Mean Platelet Volume 8.7 fL (7.4-10.4); Monocytes 3 % (0-10); Neutrophil 87 % (42-75); Platelet Count 232 thou/uL (130-400); RBC Distribution Width 17.3 % (11.5-14.5); Red Blood Cell (RBC) Count 4.34 mill/uL (4.20-5.40); White Blood Cell (WBC) Count 23.6 thou/uL (4.8-10.8)
[2022-09-22] MEDS: Furosemide 20 MG/2 ML VIAL SLOW IVP SCH ×2 (06:21→15:10)
[2022-09-22] MEDS: methylPREDNISolone Sod Succ 40 MG VIAL IVP SCH ×3 (06:21→21:02)
[2022-09-22] MEDS: Mometasone 100 MCG/Formoterol 5 MCG 120 PUFF INHALER INH SCH ×2 (07:35→18:55)
[2022-09-22] MEDS: Pregabalin 75 MG CAP PO SCH ×3 (09:13→21:09)
[2022-09-22] MEDS: DULoxetine 60 MG CAP PO SCH (09:18)
[2022-09-22] MEDS: Estradiol 1 MG TAB PO SCH (09:18)
[2022-09-22] MEDS: Aspirin 81 mg Enteric Coated Tablet PO SCH (09:18)
[2022-09-22] MEDS: Docusate 100 MG CAP PO SCH (09:18)
[2022-09-22] MEDS: Baclofen 10 MG TAB PO SCH ×3 (09:18→21:02)
[2022-09-22] MEDS: Enoxaparin Sodium 40 MG/0.4 ML SYRINGE SC SCH (09:19)
[2022-09-22] MEDS: ALPRAZolam 1 MG TAB PO SCH ×3 (09:19→21:01)
[2022-09-22] MEDS: Azithromycin 500 MG in Sodium Chloride 0.9% 250 ML 250 ML IVPB SCH (11:16)
[2022-09-22] MEDS ORDERED: HYDROmorphone 0.5 MG/0.5 ML SYRINGE SLOW IVP PRN ×2 (14:24→15:00)
[2022-09-22] MEDS: traZODone HCl 50 MG TAB PO SCH (21:01)
[2022-09-22] MEDS: Montelukast Sodium 10 mg Tablet PO SCH (21:01)
[2022-09-22] MEDS: Pramipexole Di-HCl 1 MG TAB PO SCH (21:02)
[2022-09-23] MEDS ORDERED: Melatonin 3 MG TAB PO PRN (02:56)
[2022-09-23] MEDS: oxyCODONE/Acetaminophen 5 mg/325 mg Tablet PO PRN ×2 (03:08→09:54)
[2022-09-23 04:41] LABS: #Lymphocytes 1.1 thou/uL (1.20-3.40); #Monocytes 1.2 thou/uL (0.11-0.59); #Neutrophils 13.7 thou/uL (1.40-6.50); %Basophils 0.1 % (0.0-1.0); %Eosinophils 0.2 % (0.0-10.0); %Monocytes 7.2 % (0.0-10.0); %Neutrophils 85.4 % (42.0-75.0); Hemoglobin 11.4 g/dL (12.0-16.0); Mean Corpuscular HGB CONC 30.5 g/dL (32.0-36.0); Mean Corpuscular Hemoglobin 27.9 pg (27.0-31.0); Mean Corpuscular Volume 91.4 fl (78.0-98.0); Mean Platelet Volume 8.4 fL (7.4-10.4); Platelet Count 232 thou/uL (130-400); RBC Distribution Width 17.1 % (11.5-14.5); Red Blood Cell (RBC) Count 4.07 mill/uL (4.20-5.40)
[2022-09-23 05:04] LABS: Anion Gap 12 mmol/L (10-20); BUN (Urea Nitrogen) 23 mg/dL (9.8-20.1); Calc. Creatinine Clearance 136 mL/min (70-130); Calcium 9.4 mg/dL (7.8-10.44); Carbon Dioxide 31 mmol/L (22-29); Chloride 101 mmol/L (98-107); Estimated GFR 106; Glucose 108 mg/dL (70-105); Potassium 4.5 mmol/L (3.5-5.1); Sodium 139 mmol/L (136-145)
[2022-09-23] MEDS: Furosemide 20 MG/2 ML VIAL SLOW IVP SCH ×2 (06:14→13:23)
[2022-09-23] MEDS: methylPREDNISolone Sod Succ 40 MG VIAL IVP SCH ×2 (06:14→13:22)
[2022-09-23] MEDS: Mometasone 100 MCG/Formoterol 5 MCG 120 PUFF INHALER INH SCH (06:58)
[2022-09-23] MEDS: Estradiol 1 MG TAB PO SCH (09:53)
[2022-09-23] MEDS: ALPRAZolam 1 MG TAB PO SCH ×2 (09:54→15:10)
[2022-09-23] MEDS: Aspirin 81 mg Enteric Coated Tablet PO SCH (09:55)
[2022-09-23] MEDS: Docusate 100 MG CAP PO SCH (09:55)
[2022-09-23] MEDS: DULoxetine 60 MG CAP PO SCH (09:55)
[2022-09-23] MEDS: Baclofen 10 MG TAB PO SCH ×2 (09:55→15:11)
[2022-09-23] MEDS: Pregabalin 75 MG CAP PO SCH ×2 (09:56→13:29)
[2022-09-23] MEDS: Enoxaparin Sodium 40 MG/0.4 ML SYRINGE SC SCH (09:56)
[2022-09-23] MEDS: Azithromycin 500 MG in Sodium Chloride 0.9% 250 ML 250 ML IVPB SCH (10:07)
[2022-09-23 11:26] VITALS: BP 134/72; TEMP 97.8
[2022-09-23] MEDS: Benzonatate 100 MG CAP PO PRN (13:23)
[2022-09-23] MEDS ORDERED: HYDROmorphone 0.5 MG/0.5 ML SYRINGE SLOW IVP PRN ×2 (14:20→15:30)
[2022-09-23] MEDS ORDERED: Albuterol Sulfate 1.25 MG/3 ML NEB NEB PRN (14:24)
[2022-09-23] MEDS ORDERED: guaiFENesin/DM ER PO SCH (14:30)
== END 2022-09-23 16:28 | disposition hospice, home (50) | DRG 193 ==
LOC: ERS 06:28 → 2NO 10:10
PROVIDERS: ADMIT Internal Medicine; ATTEND Student in an Organized Health Care Education/Training Program
DX: J15.9 Unspecified bacterial pneumonia (principal); I50.33 Acute on chronic diastolic (congestive) heart failure; J96.21 Acute and chronic respiratory failure with hypoxia; J44.1 Chronic obstructive pulmonary disease with (acute) exacerbation; E66.2 Morbid (severe) obesity with alveolar hypoventilation; Z20.822 Contact with and (suspected) exposure to COVID-19; I11.0 Hypertensive heart disease with heart failure; E66.9 Obesity, unspecified; I25.10 Atherosclerotic heart disease of native coronary artery without angina pectoris; F41.9 Anxiety disorder, unspecified; Z51.5 Encounter for palliative care; G89.29 Other chronic pain; F32.A Depression, unspecified; I25.2 Old myocardial infarction; K46.9 Unspecified abdominal hernia without obstruction or gangrene; Z86.16 Personal history of COVID-19; Z99.81 Dependence on supplemental oxygen; Z90.49 Acquired absence of other specified parts of digestive tract; Z90.710 Acquired absence of both cervix and uterus; Z90.89 Acquired absence of other organs; Z98.1 Arthrodesis status; Z88.1 Allergy status to other antibiotic agents; Z88.0 Allergy status to penicillin; Z88.8 Allergy status to other drugs, medicaments and biological substances; Z88.5 Allergy status to narcotic agent; Z79.82 Long term (current) use of aspirin; Z79.899 Other long term (current) drug therapy; Z87.01 Personal history of pneumonia (recurrent); Z87.891 Personal history of nicotine dependence
CPT/HCPCS: 36415; 71045; 71275; 74177; 80048; 80053; 82805; 83605; 83690; 83880; 84484; 85025; 87040; 93005; 94640; 97139; J0456; J1170; J1650; J1940; J2920; J7050; J7611; J7620; Q9967; U0003; U0005

== ENCOUNTER 2022-10-23 15:04 | Inpatient (IN) | payer BC, MEDICARE ==
[~2022-10-23 15:04] MED LIST changes: +Dextrose 50% Abboject 50 ML SYRINGE ONE; -ISOVUE-370 76%-LOCM 1 ML ONE; +Iopamidol-370 76% 500 ML 1 ML ONE
[2022-10-23] MEDS ORDERED: FENTANYL 50 MCG/ML 1 ML VIAL ONE (15:10)
[2022-10-23] MEDS ORDERED: Albuterol Sulfate 2.5 mg/3 ml Neb ONE (15:12)
[2022-10-23] MEDS ORDERED: NOREPINEPHRINE 8 MG/250 ML-D5W 250 ML ONE ×2 (15:14→22:26)
[2022-10-23] MEDS ORDERED: Ipratropium Bromide 2.5 ml Neb ONE (15:28)
[2022-10-23] MEDS ORDERED: Magnesium 2 GM/50 ML BAG (IN WATER) ONE (15:33)
[2022-10-23] MEDS ORDERED: methylPREDNISolone Sod Succ/PF 125 MG/2 ML VIAL ONE (15:33)
[2022-10-23] MEDS ORDERED: Cefepime 2 GM VIAL ONE (15:33)
[2022-10-23 15:39] LABS: Actual Bicarbonate (HCO3a) 33.7 mEq/L (22-28); Analyzer IN Cardio ER; Base Excess (BEa) -0.1 mEq/L (-2.0 to +3.0); Calcium, Ionized (arterial) 1.09 mmol/L (1.12-1.30); Carboxyhemoglobin (COHb) 0.6 gm% (0.0-3.0); Hemoglobin (Hb) 13.2 g/dL (12.0-16.0); O2 Tension (PaO2), arterial 67.9 mmHg (80.0-100.0); Potassium - ABG Lab 5.64 mmol/L (3.70-5.30)
[2022-10-23 15:43] LABS: CO2 Tension 121.4 mmHg (35.0-45.0); Puncture Site RRA; pH, Arterial 7.06 (7.35-7.45)
[2022-10-23] MEDS ORDERED: Fentanyl CADD 100 ML IV SCH (15:45)
[2022-10-23] MEDS ORDERED: Vancomycin 1.5 GRAM/300 ML BAG 1.5 GM in Premix Bag 1 BAG IVPB SCH (15:45)
[2022-10-23 16:35] LABS: Hemoglobin 12.4 g/dL (12.0-16.0); Mean Corpuscular Hemoglobin 27.4 pg (27.0-31.0); Mean Corpuscular Volume 94.5 fl (78.0-98.0); Mean Platelet Volume 7.6 fL (7.4-10.4); Platelet Count 329 10x3/uL (130-400); RBC Distribution Width 15.6 % (11.5-14.5); Red Blood Cell (RBC) Count 4.54 mill/uL (4.20-5.40); White Blood Cell (WBC) Count 16.4 10x3/uL (4.8-10.8)
[2022-10-23 16:42] LABS: ALT (SGPT) 2156 U/L (8-55); AST (SGOT) 2422 U/L (5-34); Albumin 2.6 g/dL (3.5-5.0); Alkaline Phosphatase 145 U/L (40-110); Anion Gap 21 mmol/L (10-20); BUN (Urea Nitrogen) 18 mg/dL (9.8-20.1); Bilirubin, Total 0.5 mg/dL (0.2-1.2); Calc. Creatinine Clearance 0 mL/min (70-130); Calcium 7.8 mg/dL (7.8-10.44); Carbon Dioxide 28 mmol/L (22-29); Chloride 100 mmol/L (98-107); Estimated GFR 37; Globulin 3.8 g/dL (2.4-3.5); Magnesium 2.3 mg/dL (1.6-2.6); Potassium 5.5 mmol/L (3.5-5.1); Protein, Total 6.4 g/dL (6.0-8.3); Sodium 143 mmol/L (136-145)
[2022-10-23 16:46] LABS: Glucose 50 mg/dL (70-105)
[2022-10-23 16:52] LABS: Actual Bicarbonate (HCO3a) 32.3 mEq/L (22-28); Analyzer IN Cardio ER; Base Excess (BEa) -1.3 mEq/L (-2.0 to +3.0); Calcium, Ionized (arterial) 1.07 mmol/L (1.12-1.30); Carboxyhemoglobin (COHb) 0.4 gm% (0.0-3.0); Hemoglobin (Hb) 12.6 g/dL (12.0-16.0); O2 Tension (PaO2), arterial 84.5 mmHg (80.0-100.0); Potassium - ABG Lab 4.99 mmol/L (3.70-5.30)
[2022-10-23 17:02] LABS: CKMB 5.3 ng/mL (0-6.6)
[2022-10-23 17:05] LABS: Anisocytosis SLIGHT = 6-15 cells (100X) (0-5/hpf); Band 26 % (5-11); Eosinophils 1 % (0-10); Hypochromia SLIGHT = 6-15 cells (100X) (0-5/hpf); Lymphocytes 1 % (21-51); MDiff Complete? YES; Monocytes 3 % (0-10); Myelocyte 2 % (0-0); Neutrophil 67 % (42-75); Platelet Morphology Comment Appears Adequate; Polychromasia SLIGHT = 2-3 cells (100X) (0-2/hpf); Toxic Granulation SLIGHT; Vacuoles SLIGHT
[2022-10-23 17:09] LABS: CO2 Tension 120.4 mmHg (35.0-45.0); Puncture Site RRA; pH, Arterial 7.05 (7.35-7.45)
[2022-10-23] MEDS ORDERED: Propofol 1,000 MG/100 ML VIAL IV ONE (18:00)
[2022-10-23] MEDS ORDERED: Furosemide 40 MG/4 ML VIAL SLOW IVP SCH ×2 (18:00→21:00)
[2022-10-23 18:07] LABS: SARS-CoV-2 NAA Rapid Test Not Detected (NotDetected)
[2022-10-23] MEDS ORDERED: DISCONTINUE PREVIOUS NARCOTIC PAIN MEDICATIONS AND BENZODIAZEPINES FS SCH (18:15)
[2022-10-23] MEDS ORDERED: Fentanyl BOLUS 250 ML IVPB PRN (18:15)
[2022-10-23] MEDS ORDERED: Propofol BOLUS 1,000 MG/100 ML VIAL IV PRN (18:15)
[2022-10-23] MEDS ORDERED: Morphine 4 MG/ML VIAL SLOW IVP PRN (18:15)
[2022-10-23] MEDS: Propofol 1,000 MG/100 ML VIAL IV PRN ×2 (18:43→23:15)
[2022-10-23 18:46] LABS: ALT (SGPT) 2838 U/L (8-55); AST (SGOT) 3324 U/L (5-34); Albumin 2.6 g/dL (3.5-5.0); Alkaline Phosphatase 148 U/L (40-110); Anion Gap 15 mmol/L (10-20); BUN (Urea Nitrogen) 19 mg/dL (9.8-20.1); Bilirubin, Total 0.7 mg/dL (0.2-1.2); Calc. Creatinine Clearance 0 mL/min (70-130); Calcium 7.6 mg/dL (7.8-10.44); Carbon Dioxide 26 mmol/L (22-29); Chloride 103 mmol/L (98-107); Estimated GFR 41; Globulin 3.5 g/dL (2.4-3.5); Glucose 158 mg/dL (70-105); Potassium 4.8 mmol/L (3.5-5.1); Protein, Total 6.1 g/dL (6.0-8.3); Sodium 139 mmol/L (136-145)
[2022-10-23] MEDS: Budesonide 0.5 MG/2 ML NEB NEB SCH (19:01)
[2022-10-23 19:16] LABS: Lactic Acid 3.2 mmol/L (0.5-2.2)
[2022-10-23] MEDS ORDERED: Albuterol Sulfate 2.5 mg/3 ml Neb NEB PRN (19:24)
[2022-10-23 19:30] LABS: Actual Bicarbonate (HCO3a) 31.5 mEq/L (22-28); Calcium, Ionized (arterial) 1.12 mmol/L (1.12-1.30); Carboxyhemoglobin (COHb) 0.8 gm% (0.0-3.0); Hemoglobin (Hb) 13.8 g/dL (12.0-16.0); Potassium - ABG Lab 4.74 mmol/L (3.70-5.30)
[2022-10-23 19:32] LABS: CO2 Tension 137.9 mmHg (35.0-45.0); O2 Tension (PaO2), arterial 53.8 mmHg (80.0-100.0); pH, Arterial 6.98 (7.35-7.45)
[2022-10-23 19:33] LABS: ALV-art Gradient 308.575 mmHg (0-20); Puncture Site R RAD
[2022-10-23] MEDS ORDERED: Sodium Bicarb 50 MEQ/50 ML VIAL ONE (19:50)
[2022-10-23] MEDS ORDERED: Dextrose 5% in Water 1,000 ML IV PRN (19:50)
[2022-10-23] MEDS ORDERED: Vecuronium 10 MG VIAL ONE (19:50)
[2022-10-23] MEDS ORDERED: Dextrose 50% Abboject 50 ML SYRINGE SLOW IVP PRN (19:50)
[2022-10-23] MEDS ORDERED: Vecuronium Bromide 20 MG VIAL IVP PRN (19:54)
[2022-10-23] MEDS ORDERED: Sterile Water 10 ML ONE (19:55)
[2022-10-23] MEDS: Sodium Bicarb 50 MEQ/50 ML VIAL IVP SCH ×4 (20:00→20:59)
[2022-10-23] MEDS ORDERED: Vecuronium 10 MG VIAL IVP SCH (20:00)
[2022-10-23] MEDS ORDERED: Sodium Chloride 0.9% 1,000 ML IV SCH (20:00)
[2022-10-23] MEDS ORDERED: Meropenem 1 GM in Sodium Chloride 0.9% 100 ML IVPB SCH (20:00)
[2022-10-23] MEDS: Azithromycin 500 MG in Sodium Chloride 0.9% 250 ML 250 ML IVPB SCH (20:33)
[2022-10-23 20:35] LABS: INR-International Normal Ratio 1.8; PTT 31.6 sec (22.9-36.1); Prothrombin Time 21.3 sec (12.0-14.7)
[2022-10-23] MEDS ORDERED: Sterile Water 20 ML ONE (20:39)
[2022-10-23] MEDS: methylPREDNISolone Sod Succ/PF 125 MG/2 ML VIAL IVP SCH (20:41)
[2022-10-23] MEDS: Heparin 5,000 UNITS/ML VIAL SC SCH (20:42)
[2022-10-23 20:48] LABS: Acetaminophen Less than 10.0 mcg/mL (10.0-30.0); Alcohol Less than 10 mg/dL (Less than 10); CK (CPK) 79 U/L (29-168); Salicylate Less than 8.0 mg/dL (15.0-30.0)
[2022-10-23] MEDS ORDERED: Albuterol Sulfate 2.5 mg/3 ml Neb NEB SCH ×2 (21:00→22:30)
[2022-10-23] MEDS ORDERED: Doxycycline 100 MG in Sodium Chloride 0.9% 100 ML IVPB SCH (21:00)
[2022-10-23 21:38] LABS: Ferritin 3684.52 ng/mL (10-291)
[2022-10-23] MEDS: NOREPINEPHRINE 8 MG/250 ML-D5W 250 ML IVPB SCH (23:18)
[2022-10-24 00:23] LABS: Hep A IgM AB Non-Reactive (NonReactive); Hep A IgM S/CO 0.23 S/CO (0-0.79); Hep B Surf Ag Non-Reactive S/CO (NonReactive); Hep C IgG Ab Non-Reactive (NonReactive); Hep C Index 0.11 S/CO (0-0.79); Hepatitis B Core IgM Abs Non-Reactive (NonReactive)
[2022-10-24 01:22] LABS: Legionella Urinary Ag Negative (Negative)
[2022-10-24] MEDS: methylPREDNISolone Sod Succ/PF 125 MG/2 ML VIAL IVP SCH ×5 (01:26→23:45)
[2022-10-24] MEDS ORDERED: Vecuronium 10 MG VIAL IVP PRN (02:30)
[2022-10-24] MEDS: Propofol 1,000 MG/100 ML VIAL IV PRN ×5 (03:35→23:46)
[2022-10-24 04:25] LABS: Bacteria/HPF None Seen HPF (None Seen); Bilirubin Negative (Negative); Blood, Urine Trace (Negative); CAUTI Indications for Culture Alt mental st,lethar; Clarity Turbid (Clear); Glucose, Urine (Dipstick) Normal (Negative); Ketone, Urine Negative (Negative); Leukocyte Negative Leu/uL (Negative); Nitrite Negative (Negative); Protein, Urine (Dipstick) 70 mg/dL (Neg-Trace); Specific Gravity, Urine 1.036 (1.002-1.036); Squamous Epithelial 0-3 HPF (0-3); Urobilinogen Normal mg/dL (Less than 2); pH, Urine 5.5 (5.0-9.0)
[2022-10-24 04:27] LABS: Strep pneumo Urine Ag NEGATIVE (NEGATIVE); Urine Culture Reflex Yes Yes
[2022-10-24 04:41] LABS: Albumin 2.8 g/dL (3.5-5.0); Alkaline Phosphatase 132 U/L (40-110); Anion Gap 17 mmol/L (10-20); BUN (Urea Nitrogen) 22 mg/dL (9.8-20.1); Bilirubin, Direct 0.4 mg/dL (0.1-0.3); Bilirubin, Total 0.6 mg/dL (0.2-1.2); Calc. Creatinine Clearance 46 mL/min (70-130); Calcium 8.1 mg/dL (7.8-10.44); Carbon Dioxide 35 mmol/L (22-29); Chloride 98 mmol/L (98-107); Estimated GFR 30; Glucose 191 mg/dL (70-105); Potassium 4.4 mmol/L (3.5-5.1); Protein, Total 6.9 g/dL (6.0-8.3); Sodium 146 mmol/L (136-145)
[2022-10-24 04:42] LABS: Lactic Acid 4.2 mmol/L (0.5-2.2)
[2022-10-24 04:47] LABS: AST (SGOT) Greater than 3500 U/L (5-34)
[2022-10-24 04:56] LABS: ALT (SGPT) 4433 U/L (8-55)
[2022-10-24] MEDS: Sodium Chloride 0.45% 1,000 ML IV SCH ×2 (05:13→12:28)
[2022-10-24] MEDS ORDERED: Sodium Chloride 0.9% 1,000 ML IV SCH (05:15)
[2022-10-24] MEDS: Meropenem 1 GM in Sodium Chloride 0.9% 100 ML IVPB SCH ×2 (06:32→16:50)
[2022-10-24] MEDS: NOREPINEPHRINE 8 MG/250 ML-D5W 250 ML IVPB SCH (06:50)
[2022-10-24 06:59] LABS: Band 73 % (5-11); Hemoglobin 12.8 g/dL (12.0-16.0); Lymphocytes 2 % (21-51); MDiff Complete? YES; Mean Corpuscular HGB CONC 29.7 g/dL (32.0-36.0); Mean Corpuscular Hemoglobin 27.9 pg (27.0-31.0); Mean Platelet Volume 8.3 fL (7.4-10.4); Monocytes 4 % (0-10); Neutrophil 21 % (42-75); Platelet Count 308 10x3/uL (130-400); Platelet Morphology Comment Appears Adequate; RBC Distribution Width 15.8 % (11.5-14.5); RBC Morphology Normal; Red Blood Cell (RBC) Count 4.59 mill/uL (4.20-5.40)
[2022-10-24] MEDS: Budesonide 0.5 MG/2 ML NEB NEB SCH ×2 (07:13→18:48)
[2022-10-24 07:41] LABS: Actual Bicarbonate (HCO3a) 33.5 mEq/L (22-28); Base Excess (BEa) 3.2 mEq/L (-2.0 to +3.0); Calcium, Ionized (arterial) 1.09 mmol/L (1.12-1.30); Carboxyhemoglobin (COHb) 0.5 gm% (0.0-3.0); Hemoglobin (Hb) 12.9 g/dL (12.0-16.0); O2 Tension (PaO2), arterial 78.8 mmHg (80.0-100.0); Potassium - ABG Lab 4.38 mmol/L (3.70-5.30); pH, Arterial 7.21 (7.35-7.45)
[2022-10-24 07:45] LABS: Puncture Site RRA
[2022-10-24] MEDS ORDERED: Aspirin 81 mg Enteric Coated Tablet PO SCH (09:00)
[2022-10-24] MEDS ORDERED: Furosemide 40 MG/4 ML VIAL SLOW IVP SCH (09:00)
[2022-10-24] MEDS: Pantoprazole 40 MG VIAL IVP SCH (09:22)
[2022-10-24] MEDS: Heparin 5,000 UNITS/ML VIAL SC SCH ×3 (09:23→21:20)
[2022-10-24] MEDS ORDERED: Fentanyl CADD 100 ML ONE (09:41)
[2022-10-24] MEDS: Fentanyl CADD 100 ML IV SCH (09:48)
[2022-10-24] MEDS: Lorazepam 2 MG/ML VIAL SLOW IVP PRN ×3 (10:15→23:46)
[2022-10-24 10:40] LABS: Lactic Acid 2.1 mmol/L (0.5-2.2)
[2022-10-24] MEDS: Azithromycin 500 MG in Sodium Chloride 0.9% 250 ML 250 ML IVPB SCH (21:20)
[2022-10-25] MEDS: Sodium Chloride 0.45% 1,000 ML IV SCH ×3 (00:45→20:57)
[2022-10-25 04:06] LABS: INR-International Normal Ratio 1.5; Prothrombin Time 18.2 sec (12.0-14.7)
[2022-10-25 04:17] LABS: ALT (SGPT) 2955 U/L (8-55); AST (SGOT) 2090 U/L (5-34); Albumin 2.4 g/dL (3.5-5.0); Alkaline Phosphatase 117 U/L (40-110); Bilirubin, Direct 0.3 mg/dL (0.1-0.3); Bilirubin, Total 0.5 mg/dL (0.2-1.2); Protein, Total 5.9 g/dL (6.0-8.3)
[2022-10-25 04:29] LABS: Anion Gap 13 mmol/L (10-20); BUN (Urea Nitrogen) 43 mg/dL (9.8-20.1); Calc. Creatinine Clearance 28 mL/min (70-130); Calcium 7.9 mg/dL (7.8-10.44); Carbon Dioxide 35 mmol/L (22-29); Chloride 98 mmol/L (98-107); Estimated GFR 16; Glucose 121 mg/dL (70-105); Potassium 3.6 mmol/L (3.5-5.1); Sodium 142 mmol/L (136-145)
[2022-10-25 04:46] LABS: Band 36 % (5-11); Hemoglobin 10.2 g/dL (12.0-16.0); Lymphocytes 5 % (21-51); MDiff Complete? YES; Mean Corpuscular HGB CONC 30.7 g/dL (32.0-36.0); Mean Corpuscular Hemoglobin 27.4 pg (27.0-31.0); Mean Corpuscular Volume 89.5 fl (78.0-98.0); Mean Platelet Volume 8.8 fL (7.4-10.4); Monocytes 1 % (0-10); Neutrophil 58 % (42-75); Platelet Count 171 10x3/uL (130-400); RBC Distribution Width 15.8 % (11.5-14.5); White Blood Cell (WBC) Count 19.6 10x3/uL (4.8-10.8)
[2022-10-25] MEDS: Meropenem 1 GM in Sodium Chloride 0.9% 100 ML IVPB SCH ×2 (05:02→18:35)
[2022-10-25] MEDS: methylPREDNISolone Sod Succ/PF 125 MG/2 ML VIAL IVP SCH ×4 (05:02→23:06)
[2022-10-25] MEDS: Fentanyl CADD 100 ML IV SCH (05:17)
[2022-10-25] MEDS: Propofol 1,000 MG/100 ML VIAL IV PRN ×3 (06:39→23:07)
[2022-10-25] MEDS: Budesonide 0.5 MG/2 ML NEB NEB SCH ×2 (06:58→18:14)
[2022-10-25 07:28] LABS: Actual Bicarbonate (HCO3a) 35.9 mEq/L (22-28); Base Excess (BEa) 8.6 mEq/L (-2.0 to +3.0); Calcium, Ionized (arterial) 1.09 mmol/L (1.12-1.30); Carboxyhemoglobin (COHb) 0.9 gm% (0.0-3.0); Hemoglobin (Hb) 13.9 g/dL (12.0-16.0); O2 Tension (PaO2), arterial 68.3 mmHg (80.0-100.0); Potassium - ABG Lab 3.47 mmol/L (3.70-5.30); pH, Arterial 7.39 (7.35-7.45)
[2022-10-25 07:31] LABS: CO2 Tension 61.4 mmHg (35.0-45.0); Puncture Site RRA
[2022-10-25] MEDS: Aspirin Chewable 81 MG TAB PO SCH (09:05)
[2022-10-25] MEDS: Heparin 5,000 UNITS/ML VIAL SC SCH ×3 (09:06→20:57)
[2022-10-25] MEDS: Pantoprazole 40 MG VIAL IVP SCH (09:06)
[2022-10-25] MEDS: Azithromycin 500 MG in Sodium Chloride 0.9% 250 ML 250 ML IVPB SCH (19:40)
[2022-10-26] MEDS: Fentanyl CADD 100 ML IV SCH ×2 (01:35→20:22)
[2022-10-26 04:31] LABS: Anion Gap 17 mmol/L (10-20); BUN (Urea Nitrogen) 65 mg/dL (9.8-20.1); Calc. Creatinine Clearance 19 mL/min (70-130); Calcium 8.1 mg/dL (7.8-10.44); Carbon Dioxide 30 mmol/L (22-29); Chloride 96 mmol/L (98-107); Estimated GFR 10; Glucose 126 mg/dL (70-105); Potassium 3.4 mmol/L (3.5-5.1); Sodium 140 mmol/L (136-145)
[2022-10-26 04:32] LABS: ALT (SGPT) 2101 U/L (8-55); AST (SGOT) 667 U/L (5-34); Albumin 2.6 g/dL (3.5-5.0); Alkaline Phosphatase 136 U/L (40-110); Bilirubin, Direct 0.4 mg/dL (0.1-0.3); Bilirubin, Total 0.5 mg/dL (0.2-1.2); Protein, Total 6.2 g/dL (6.0-8.3)
[2022-10-26 04:34] LABS: Hemoglobin 10.2 g/dL (12.0-16.0); Mean Corpuscular HGB CONC 32.2 g/dL (32.0-36.0); Mean Corpuscular Hemoglobin 28.4 pg (27.0-31.0); Platelet Count 143 10x3/uL (130-400); RBC Distribution Width 16.1 % (11.5-14.5); Red Blood Cell (RBC) Count 3.58 mill/uL (4.20-5.40); White Blood Cell (WBC) Count 16.7 10x3/uL (4.8-10.8)
[2022-10-26] MEDS: Meropenem 1 GM in Sodium Chloride 0.9% 100 ML IVPB SCH (04:47)
[2022-10-26 05:19] LABS: Anisocytosis SLIGHT = 6-15 cells (100X) (0-5/hpf); Band 17 % (5-11); Hypochromia SLIGHT = 6-15 cells (100X) (0-5/hpf); Lymphocytes 2 % (21-51); MDiff Complete? YES; Monocytes 8 % (0-10); Neutrophil 73 % (42-75); Platelet Morphology Comment Appears Adequate
[2022-10-26] MEDS: methylPREDNISolone Sod Succ/PF 125 MG/2 ML VIAL IVP SCH ×4 (05:24→23:01)
[2022-10-26] MEDS: Propofol 1,000 MG/100 ML VIAL IV PRN ×3 (06:14→19:31)
[2022-10-26] MEDS: Budesonide 0.5 MG/2 ML NEB NEB SCH ×2 (06:53→18:48)
[2022-10-26 07:16] LABS: Actual Bicarbonate (HCO3a) 31.1 mEq/L (22-28); Base Excess (BEa) 4.1 mEq/L (-2.0 to +3.0); CO2 Tension 57.8 mmHg (35.0-45.0); Calcium, Ionized (arterial) 1.11 mmol/L (1.12-1.30); Carboxyhemoglobin (COHb) 0.3 gm% (0.0-3.0); Hemoglobin (Hb) 12.6 g/dL (12.0-16.0); O2 Tension (PaO2), arterial 81.8 mmHg (80.0-100.0); Potassium - ABG Lab 3.47 mmol/L (3.70-5.30); pH, Arterial 7.35 (7.35-7.45)
[2022-10-26] MEDS: Sodium Chloride 0.45% 1,000 ML IV SCH ×2 (07:30→11:41)
[2022-10-26 07:52] LABS: Puncture Site RRA
[2022-10-26] MEDS: Heparin 5,000 UNITS/ML VIAL SC SCH ×3 (08:56→20:57)
[2022-10-26] MEDS: Pantoprazole 40 MG VIAL IVP SCH (08:57)
[2022-10-26] MEDS: Aspirin Chewable 81 MG TAB PO SCH (08:57)
[2022-10-26] MEDS: Linezolid 600 MG in Premix Bag 1 BAG IVPB SCH ×2 (11:53→22:56)
[2022-10-26] MEDS: Meropenem 500 MG in Sodium Chloride 0.9% 100 ML IVPB SCH (16:35)
[2022-10-26] MEDS: Azithromycin 500 MG in Sodium Chloride 0.9% 250 ML 250 ML IVPB SCH (19:27)
[2022-10-26 21:08] LABS: Mycoplasma pneumoniae IgG AB 996 U/mL (0-99); Mycoplasma pneumoniae IgM AB Less than 770 U/mL (0-769)
[2022-10-27] MEDS: Propofol 1,000 MG/100 ML VIAL IV PRN ×2 (01:21→07:03)
[2022-10-27] MEDS: Meropenem 500 MG in Sodium Chloride 0.9% 100 ML IVPB SCH ×2 (04:32→16:33)
[2022-10-27 04:45] LABS: Hemoglobin 10.1 g/dL (12.0-16.0); Mean Corpuscular HGB CONC 31.2 g/dL (32.0-36.0); Mean Corpuscular Hemoglobin 27.3 pg (27.0-31.0); Mean Corpuscular Volume 87.6 fl (78.0-98.0); Platelet Count 136 10x3/uL (130-400); RBC Distribution Width 16.1 % (11.5-14.5); Red Blood Cell (RBC) Count 3.68 mill/uL (4.20-5.40); White Blood Cell (WBC) Count 14.3 10x3/uL (4.8-10.8)
[2022-10-27 05:02] LABS: Anion Gap 19 mmol/L (10-20); BUN (Urea Nitrogen) 88 mg/dL (9.8-20.1); Calc. Creatinine Clearance 17 mL/min (70-130); Calcium 7.9 mg/dL (7.8-10.44); Carbon Dioxide 26 mmol/L (22-29); Chloride 92 mmol/L (98-107); Estimated GFR 9; Glucose 158 mg/dL (70-105); Potassium 4.3 mmol/L (3.5-5.1); Sodium 133 mmol/L (136-145)
[2022-10-27] MEDS: methylPREDNISolone Sod Succ/PF 125 MG/2 ML VIAL IVP SCH ×3 (05:35→22:07)
[2022-10-27] MEDS: Sodium Chloride 0.45% 1,000 ML IV SCH ×2 (05:36→16:41)
[2022-10-27 05:53] LABS: Anisocytosis SLIGHT = 6-15 cells (100X) (0-5/hpf); Band 8 % (5-11); Hypochromia SLIGHT = 6-15 cells (100X) (0-5/hpf); Lymphocytes 1 % (21-51); MDiff Complete? YES; Monocytes 5 % (0-10); Neutrophil 86 % (42-75); Platelet Morphology Comment Appears Adequate; Polychromasia SLIGHT = 2-3 cells (100X) (0-2/hpf)
[2022-10-27 06:57] LABS: Actual Bicarbonate (HCO3a) 27.6 mEq/L (22-28); Base Excess (BEa) 1.6 mEq/L (-2.0 to +3.0); CO2 Tension 49.9 mmHg (35.0-45.0); Carboxyhemoglobin (COHb) 0.3 gm% (0.0-3.0); Hemoglobin (Hb) 10.9 g/dL (12.0-16.0); O2 Tension (PaO2), arterial 99.1 mmHg (80.0-100.0); Potassium - ABG Lab 4.41 mmol/L (3.70-5.30); pH, Arterial 7.36 (7.35-7.45)
[2022-10-27 07:04] LABS: ALV-art Gradient 52.425 mmHg (0-20); Puncture Site RRA
[2022-10-27] MEDS: Budesonide 0.5 MG/2 ML NEB NEB SCH ×2 (07:28→18:25)
[2022-10-27] MEDS: Heparin 5,000 UNITS/ML VIAL SC SCH ×3 (09:41→21:19)
[2022-10-27] MEDS: Aspirin Chewable 81 MG TAB PO SCH (09:42)
[2022-10-27] MEDS: Pantoprazole 40 MG VIAL IVP SCH (09:42)
[2022-10-27] MEDS: Linezolid 600 MG in Premix Bag 1 BAG IVPB SCH ×2 (09:44→23:10)
[2022-10-27] MEDS ORDERED: Fentanyl CADD 100 ML ONE (13:11)
[2022-10-27] MEDS: Fentanyl CADD 100 ML IV SCH ×2 (13:12→22:13)
[2022-10-27] MEDS: Azithromycin 500 MG in Sodium Chloride 0.9% 250 ML 250 ML IVPB SCH (19:25)
[2022-10-28 04:18] LABS: Hemoglobin 11.3 g/dL (12.0-16.0); Mean Corpuscular Hemoglobin 27.4 pg (27.0-31.0); Mean Corpuscular Volume 85.6 fl (78.0-98.0); Mean Platelet Volume 9.2 fL (7.4-10.4); Platelet Count 128 10x3/uL (130-400); RBC Distribution Width 16.2 % (11.5-14.5); Red Blood Cell (RBC) Count 4.12 mill/uL (4.20-5.40); White Blood Cell (WBC) Count 15.8 10x3/uL (4.8-10.8)
[2022-10-28 04:21] LABS: ALT (SGPT) 894 U/L (8-55); AST (SGOT) 95 U/L (5-34); Alkaline Phosphatase 119 U/L (40-110); Anion Gap 19 mmol/L (10-20); BUN (Urea Nitrogen) 104 mg/dL (9.8-20.1); Bilirubin, Total 0.5 mg/dL (0.2-1.2); Calc. Creatinine Clearance 17 mL/min (70-130); Carbon Dioxide 26 mmol/L (22-29); Chloride 93 mmol/L (98-107); Estimated GFR 8; Globulin 3.5 g/dL (2.4-3.5); Glucose 136 mg/dL (70-105); Magnesium 3.1 mg/dL (1.6-2.6); Phosphorus 8.5 mg/dL (2.3-4.7); Potassium 5.4 mmol/L (3.5-5.1); Protein, Total 6.5 g/dL (6.0-8.3); Sodium 133 mmol/L (136-145)
[2022-10-28] MEDS: Meropenem 500 MG in Sodium Chloride 0.9% 100 ML IVPB SCH ×2 (04:32→17:01)
[2022-10-28 04:53] LABS: Band 11 % (5-11); Hypochromia SLIGHT = 6-15 cells (100X) (0-5/hpf); MDiff Complete? YES; Monocytes 15 % (0-10); Neutrophil 74 % (42-75); Platelet Morphology Comment Appears Decreased
[2022-10-28] MEDS: methylPREDNISolone Sod Succ/PF 125 MG/2 ML VIAL IVP SCH ×2 (05:28→17:47)
[2022-10-28] MEDS: Budesonide 0.5 MG/2 ML NEB NEB SCH ×2 (07:13→19:05)
[2022-10-28] MEDS: Heparin 5,000 UNITS/ML VIAL SC SCH ×2 (09:08→10:36)
[2022-10-28] MEDS: Aspirin Chewable 81 MG TAB PO SCH (09:08)
[2022-10-28] MEDS: Pantoprazole 40 MG VIAL IVP SCH (09:09)
[2022-10-28] MEDS: Sodium Chloride 0.9% 1,000 ML IV SCH (11:36)
[2022-10-28] MEDS: LOKELMA 10 GM PACKET PO SCH ×2 (11:37→15:35)
[2022-10-28] MEDS: Linezolid 600 MG in Premix Bag 1 BAG IVPB SCH ×2 (11:37→23:34)
[2022-10-28] MEDS: Azithromycin 500 MG in Sodium Chloride 0.9% 250 ML 250 ML IVPB SCH (20:03)
[2022-10-29] MEDS: Sodium Chloride 0.9% 1,000 ML IV SCH ×2 (00:51→16:37)
[2022-10-29] MEDS: oxyCODONE/Acetaminophen 5 mg/325 mg Tablet PO PRN ×2 (02:34→21:00)
[2022-10-29 04:59] LABS: ALT (SGPT) 483 U/L (8-55); AST (SGOT) 59 U/L (5-34); Albumin 2.8 g/dL (3.5-5.0); Alkaline Phosphatase 91 U/L (40-110); Anion Gap 20 mmol/L (10-20); BUN (Urea Nitrogen) 118 mg/dL (9.8-20.1); Bilirubin, Total 0.6 mg/dL (0.2-1.2); Calc. Creatinine Clearance 18 mL/min (70-130); Calcium 8.1 mg/dL (7.8-10.44); Carbon Dioxide 25 mmol/L (22-29); Chloride 94 mmol/L (98-107); Estimated GFR 9; Globulin 3.2 g/dL (2.4-3.5); Glucose 113 mg/dL (70-105); Potassium 5.3 mmol/L (3.5-5.1); Sodium 134 mmol/L (136-145)
[2022-10-29 05:07] LABS: Band 7 % (5-11); Hemoglobin 10.8 g/dL (12.0-16.0); Lymphocytes 4 % (21-51); MDiff Complete? YES; Mean Corpuscular HGB CONC 32.4 g/dL (32.0-36.0); Mean Corpuscular Hemoglobin 27.4 pg (27.0-31.0); Mean Corpuscular Volume 84.5 fl (78.0-98.0); Mean Platelet Volume 9.9 fL (7.4-10.4); Metamyelocyte 2 % (0-0); Monocytes 10 % (0-10); Neutrophil 77 % (42-75); Platelet Count 120 10x3/uL (130-400); Platelet Morphology Comment Appears Decreased; RBC Distribution Width 16.2 % (11.5-14.5); RBC Morphology Normal; Red Blood Cell (RBC) Count 3.93 mill/uL (4.20-5.40); White Blood Cell (WBC) Count 17.2 10x3/uL (4.8-10.8)
[2022-10-29] MEDS: Meropenem 500 MG in Sodium Chloride 0.9% 100 ML IVPB SCH ×2 (05:50→16:58)
[2022-10-29] MEDS: methylPREDNISolone Sod Succ/PF 125 MG/2 ML VIAL IVP SCH (05:50)
[2022-10-29] MEDS: Budesonide 0.5 MG/2 ML NEB NEB SCH ×2 (08:21→18:46)
[2022-10-29] MEDS: Aspirin Chewable 81 MG TAB PO SCH (08:26)
[2022-10-29] MEDS: Pantoprazole 40 MG VIAL IVP SCH (08:27)
[2022-10-29] MEDS: Linezolid 600 MG in Premix Bag 1 BAG IVPB SCH (11:04)
[2022-10-29] MEDS: Ondansetron PF 4 MG/2 ML Vial IVP PRN (13:31)
[2022-10-29] MEDS: Baclofen 10 MG TAB PO SCH ×2 (15:06→21:01)
[2022-10-29] MEDS ORDERED: Dextrose 50% Abboject 50 ML SYRINGE ONE (15:41)
[2022-10-29] MEDS: methylPREDNISolone Sod Succ 40 MG VIAL IVP SCH (17:33)
[2022-10-29] MEDS: Pramipexole Di-HCl 1 MG TAB PO SCH (21:00)
[2022-10-30] MEDS: Linezolid 600 MG in Premix Bag 1 BAG IVPB SCH ×3 (00:39→23:30)
[2022-10-30] MEDS: traZODone HCl 50 MG TAB PO PRN ×2 (00:50→20:52)
[2022-10-30] MEDS: Ondansetron PF 4 MG/2 ML Vial IVP PRN (00:50)
[2022-10-30] MEDS: Meropenem 500 MG in Sodium Chloride 0.9% 100 ML IVPB SCH ×2 (06:51→15:59)
[2022-10-30] MEDS: methylPREDNISolone Sod Succ 40 MG VIAL IVP SCH (06:52)
[2022-10-30 07:17] LABS: Hemoglobin 10.1 g/dL (12.0-16.0); Mean Corpuscular HGB CONC 32.3 g/dL (32.0-36.0); Mean Corpuscular Hemoglobin 27.7 pg (27.0-31.0); Mean Corpuscular Volume 85.5 fl (78.0-98.0); Mean Platelet Volume 9.6 fL (7.4-10.4); Platelet Count 142 10x3/uL (130-400); RBC Distribution Width 16.3 % (11.5-14.5); Red Blood Cell (RBC) Count 3.67 mill/uL (4.20-5.40); White Blood Cell (WBC) Count 22.3 10x3/uL (4.8-10.8)
[2022-10-30 07:34] LABS: ALT (SGPT) 263 U/L (8-55); AST (SGOT) 46 U/L (5-34); Albumin 2.7 g/dL (3.5-5.0); Alkaline Phosphatase 78 U/L (40-110); Anion Gap 19 mmol/L (10-20); BUN (Urea Nitrogen) 116 mg/dL (9.8-20.1); Bilirubin, Total 0.7 mg/dL (0.2-1.2); Calc. Creatinine Clearance 20 mL/min (70-130); Calcium 8.2 mg/dL (7.8-10.44); Carbon Dioxide 27 mmol/L (22-29); Chloride 100 mmol/L (98-107); Estimated GFR 11; Glucose 76 mg/dL (70-105); Potassium 4.7 mmol/L (3.5-5.1); Protein, Total 5.7 g/dL (6.0-8.3); Sodium 141 mmol/L (136-145)
[2022-10-30] MEDS: Budesonide 0.5 MG/2 ML NEB NEB SCH ×2 (08:00→19:17)
[2022-10-30] MEDS: Sodium Chloride 0.9% 1,000 ML IV SCH ×2 (09:35→21:01)
[2022-10-30] MEDS: Baclofen 10 MG TAB PO SCH ×3 (09:36→20:52)
[2022-10-30] MEDS: Aspirin Chewable 81 MG TAB PO SCH (09:36)
[2022-10-30] MEDS: Docusate 100 MG CAP PO SCH (09:36)
[2022-10-30 09:41] LABS: Band 4 % (5-11); Lymphocytes 8 % (21-51); MDiff Complete? YES; Monocytes 6 % (0-10); Myelocyte 3 % (0-0); Neutrophil 79 % (42-75); Platelet Morphology Comment Appears Adequate; Polychromasia SLIGHT = 2-3 cells (100X) (0-2/hpf)
[2022-10-30] MEDS: oxyCODONE/Acetaminophen 5 mg/325 mg Tablet PO PRN ×2 (11:52→20:53)
[2022-10-30] MEDS: Pramipexole Di-HCl 1 MG TAB PO SCH (20:52)
[2022-10-31] MEDS ORDERED: Lidocaine 5% Patch TD SCH (04:00)
[2022-10-31 05:02] LABS: Anion Gap 18 mmol/L (10-20); BUN (Urea Nitrogen) 101 mg/dL (9.8-20.1); Calc. Creatinine Clearance 24 mL/min (70-130); Calcium 7.8 mg/dL (7.8-10.44); Carbon Dioxide 22 mmol/L (22-29); Chloride 105 mmol/L (98-107); Estimated GFR 13; Glucose 89 mg/dL (70-105); Potassium 5.1 mmol/L (3.5-5.1); Sodium 140 mmol/L (136-145)
[2022-10-31 05:08] LABS: Troponin I 0.059 ng/mL (< 0.028)
[2022-10-31] MEDS: Budesonide 0.5 MG/2 ML NEB NEB SCH ×2 (07:15→18:56)
[2022-10-31] MEDS ORDERED: predniSONE 5 MG TAB PO SCH (08:00)
[2022-10-31] MEDS: predniSONE 20 MG TAB PO SCH (08:38)
[2022-10-31] MEDS: Aspirin Chewable 81 MG TAB PO SCH (08:38)
[2022-10-31] MEDS: Docusate 100 MG CAP PO SCH (08:38)
[2022-10-31] MEDS: Baclofen 10 MG TAB PO SCH ×3 (08:38→20:28)
[2022-10-31] MEDS: Sodium Chloride 0.9% 1,000 ML IV SCH (08:39)
[2022-10-31] MEDS ORDERED: traMADol HCl 50 MG TAB PO PRN (10:19)
[2022-10-31] MEDS: Linezolid 600 MG in Premix Bag 1 BAG IVPB SCH ×2 (10:23→22:33)
[2022-10-31] MEDS: oxyCODONE/Acetaminophen 5 mg/325 mg Tablet PO PRN ×2 (10:23→20:33)
[2022-10-31] MEDS ORDERED: Enoxaparin Sodium 30 MG/0.3 ML SYRINGE SC SCH (11:00)
[2022-10-31] MEDS ORDERED: Transdermal Patch Removal TOP SCH (16:00)
[2022-10-31] MEDS: Pramipexole Di-HCl 1 MG TAB PO SCH (20:28)
[2022-10-31] MEDS: traZODone HCl 50 MG TAB PO PRN (20:28)
[2022-11-01] MEDS: Sodium Chloride 0.9% 1,000 ML IV SCH ×2 (03:28→12:14)
[2022-11-01] MEDS: Ondansetron PF 4 MG/2 ML Vial IVP PRN (06:31)
[2022-11-01 06:56] LABS: Hemoglobin 10.4 g/dL (12.0-16.0); Mean Corpuscular HGB CONC 31.7 g/dL (32.0-36.0); Mean Corpuscular Hemoglobin 27.6 pg (27.0-31.0); Mean Corpuscular Volume 86.8 fl (78.0-98.0); Mean Platelet Volume 10.1 fL (7.4-10.4); Platelet Count 157 10x3/uL (130-400); RBC Distribution Width 16.9 % (11.5-14.5); Red Blood Cell (RBC) Count 3.76 mill/uL (4.20-5.40); White Blood Cell (WBC) Count 20.6 10x3/uL (4.8-10.8)
[2022-11-01] MEDS: oxyCODONE/Acetaminophen 5 mg/325 mg Tablet PO PRN ×3 (06:58→22:48)
[2022-11-01] MEDS: Budesonide 0.5 MG/2 ML NEB NEB SCH ×2 (07:44→18:53)
[2022-11-01 08:09] LABS: ALT (SGPT) 105 U/L (8-55); AST (SGOT) 33 U/L (5-34); Albumin 2.6 g/dL (3.5-5.0); Alkaline Phosphatase 67 U/L (40-110); Anion Gap 17 mmol/L (10-20); BUN (Urea Nitrogen) 83 mg/dL (9.8-20.1); Bilirubin, Total 0.8 mg/dL (0.2-1.2); Calc. Creatinine Clearance 35 mL/min (70-130); Carbon Dioxide 24 mmol/L (22-29); Chloride 108 mmol/L (98-107); Estimated GFR 16; Glucose 73 mg/dL (70-105); Potassium 4.7 mmol/L (3.5-5.1); Protein, Total 5.6 g/dL (6.0-8.3); Sodium 144 mmol/L (136-145)
[2022-11-01] MEDS: Docusate 100 MG CAP PO SCH (08:35)
[2022-11-01] MEDS: Enoxaparin Sodium 30 MG/0.3 ML SYRINGE SC SCH (08:35)
[2022-11-01] MEDS: Baclofen 10 MG TAB PO SCH ×3 (08:35→21:05)
[2022-11-01] MEDS: Aspirin Chewable 81 MG TAB PO SCH (08:35)
[2022-11-01] MEDS: predniSONE 20 MG TAB PO SCH (08:35)
[2022-11-01] MEDS: Lidocaine 5% Patch TD SCH (10:04)
[2022-11-01] MEDS: Linezolid 600 MG in Premix Bag 1 BAG IVPB SCH ×2 (10:57→22:48)
[2022-11-01 12:59] LABS: Band 3 % (5-11); Lymphocytes 7 % (21-51); Monocytes 6 % (0-10); Neutrophil 82 % (42-75); Reactive Lymphocytes 1 % (0-10)
[2022-11-01 13:00] LABS: Polychromasia SLIGHT = 2-3 cells (100X) (0-2/hpf)
[2022-11-01 13:01] LABS: Platelet Morphology Comment Appears Adequate; Target Cells SLIGHT = 2-5 cells (100X) (0-1/hpf); Tear Drops SLIGHT = 2-5 cells (100X) (0-1/hpf)
[2022-11-01 13:02] LABS: MDiff Complete? YES
[2022-11-01] MEDS: Pramipexole Di-HCl 1 MG TAB PO SCH (21:04)
[2022-11-01] MEDS: traZODone HCl 50 MG TAB PO PRN (21:05)
[2022-11-01] MEDS: Transdermal Patch Removal TOP SCH (21:05)
[2022-11-02] MEDS ORDERED: hydrOXYzine 25 MG TAB PO SCH (00:30)
[2022-11-02] MEDS ORDERED: Lorazepam 2 MG/ML VIAL SLOW IVP SCH (02:30)
[2022-11-02] MEDS: Sodium Chloride 0.9% 1,000 ML IV SCH ×2 (06:18→15:43)
[2022-11-02] MEDS: oxyCODONE/Acetaminophen 5 mg/325 mg Tablet PO PRN (06:35)
[2022-11-02] MEDS: Budesonide 0.5 MG/2 ML NEB NEB SCH ×2 (07:10→18:47)
[2022-11-02] MEDS: Lidocaine 5% Patch TD SCH (08:33)
[2022-11-02] MEDS: Aspirin Chewable 81 MG TAB PO SCH (08:33)
[2022-11-02] MEDS: Docusate 100 MG CAP PO SCH (08:33)
[2022-11-02] MEDS: predniSONE 20 MG TAB PO SCH (08:33)
[2022-11-02] MEDS: Baclofen 10 MG TAB PO SCH ×3 (08:33→20:48)
[2022-11-02] MEDS: Enoxaparin Sodium 30 MG/0.3 ML SYRINGE SC SCH (08:33)
[2022-11-02 10:14] LABS: ALT (SGPT) 77 U/L (8-55); AST (SGOT) 33 U/L (5-34); Albumin 2.5 g/dL (3.5-5.0); Alkaline Phosphatase 71 U/L (40-110); Anion Gap 16 mmol/L (10-20); BUN (Urea Nitrogen) 69 mg/dL (9.8-20.1); Bilirubin, Total 1.2 mg/dL (0.2-1.2); Calc. Creatinine Clearance 43 mL/min (70-130); Calcium 8.2 mg/dL (7.8-10.44); Carbon Dioxide 23 mmol/L (22-29); Chloride 111 mmol/L (98-107); Estimated GFR 21; Globulin 3.1 g/dL (2.4-3.5); Glucose 82 mg/dL (70-105); Potassium 4.1 mmol/L (3.5-5.1); Protein, Total 5.6 g/dL (6.0-8.3); Sodium 146 mmol/L (136-145)
[2022-11-02 10:30] LABS: Band 2 % (5-11); Hemoglobin 9.5 g/dL (12.0-16.0); Hypochromia SLIGHT = 6-15 cells (100X) (0-5/hpf); Lymphocytes 8 % (21-51); MDiff Complete? YES; Mean Corpuscular HGB CONC 30.8 g/dL (32.0-36.0); Mean Corpuscular Hemoglobin 27.1 pg (27.0-31.0); Mean Corpuscular Volume 87.9 fl (78.0-98.0); Mean Platelet Volume 10.8 fL (7.4-10.4); Monocytes 7 % (0-10); Myelocyte 2 % (0-0); Neutrophil 81 % (42-75); Ovalocytes SLIGHT = 2-5 cells (100X) (0-1/hpf); Platelet Count 153 10x3/uL (130-400); Platelet Morphology Comment Appears Adequate; Polychromasia SLIGHT = 2-3 cells (100X) (0-2/hpf); Red Blood Cell (RBC) Count 3.49 mill/uL (4.20-5.40); Target Cells SLIGHT = 2-5 cells (100X) (0-1/hpf); Tear Drops SLIGHT = 2-5 cells (100X) (0-1/hpf)
[2022-11-02] MEDS: Linezolid 600 MG in Premix Bag 1 BAG IVPB SCH ×2 (10:34→22:49)
[2022-11-02] MEDS: Pramipexole Di-HCl 1 MG TAB PO SCH (20:48)
[2022-11-02] MEDS: traZODone HCl 50 MG TAB PO PRN (20:48)
[2022-11-02] MEDS: Transdermal Patch Removal TOP SCH (20:49)
[2022-11-03] MEDS: Sodium Chloride 0.9% 1,000 ML IV SCH (02:26)
[2022-11-03 04:34] LABS: Base Excess (BEa) 0.9 mEq/L (-2.0 to +3.0); CO2 Tension 43.6 mmHg (35.0-45.0); Calcium, Ionized (arterial) 1.15 mmol/L (1.12-1.30); Carboxyhemoglobin (COHb) 0.9 gm% (0.0-3.0); Hemoglobin (Hb) 11.2 g/dL (12.0-16.0); Potassium - ABG Lab 4.69 mmol/L (3.70-5.30); pH, Arterial 7.39 (7.35-7.45)
[2022-11-03 04:35] LABS: O2 Tension (PaO2), arterial 32.2 mmHg (80.0-100.0)
[2022-11-03 04:36] LABS: Puncture Site RR
[2022-11-03] MEDS: Lorazepam 2 MG/ML VIAL SLOW IVP PRN ×4 (04:40→18:35)
[2022-11-03] MEDS ORDERED: Furosemide 20 MG/2 ML VIAL SLOW IVP SCH (05:30)
[2022-11-03 05:47] LABS: Hemoglobin 9.7 g/dL (12.0-16.0); Mean Corpuscular HGB CONC 31.2 g/dL (32.0-36.0); Mean Corpuscular Hemoglobin 27.9 pg (27.0-31.0); Mean Corpuscular Volume 89.3 fl (78.0-98.0); Mean Platelet Volume 8.8 fL (7.4-10.4); Platelet Count 229 10x3/uL (130-400); Red Blood Cell (RBC) Count 3.48 mill/uL (4.20-5.40); White Blood Cell (WBC) Count 28.6 10x3/uL (4.8-10.8)
[2022-11-03 06:06] LABS: Band 1 % (5-11); Eosinophils 1 % (0-10); Lymphocytes 2 % (21-51); MDiff Complete? YES; Monocytes 3 % (0-10); Myelocyte 1 % (0-0); Neutrophil 92 % (42-75)
[2022-11-03 06:07] LABS: ALT (SGPT) 86 U/L (8-55); AST (SGOT) 65 U/L (5-34); Albumin 2.8 g/dL (3.5-5.0); Alkaline Phosphatase 127 U/L (40-110); Anion Gap 16 mmol/L (10-20); Calc. Creatinine Clearance 50 mL/min (70-130); Calcium 8.3 mg/dL (7.8-10.44); Carbon Dioxide 26 mmol/L (22-29); Chloride 112 mmol/L (98-107); Estimated GFR 25; Globulin 3.2 g/dL (2.4-3.5); Glucose 85 mg/dL (70-105); Magnesium 1.7 mg/dL (1.6-2.6); Potassium 4.6 mmol/L (3.5-5.1); Sodium 149 mmol/L (136-145)
[2022-11-03] MEDS: Budesonide 0.5 MG/2 ML NEB NEB SCH ×2 (06:50→19:27)
[2022-11-03 07:15] LABS: BUN (Urea Nitrogen) 61 mg/dL (9.8-20.1)
[2022-11-03] MEDS: Dextrose 5% in Water 1,000 ML IV SCH ×2 (07:21→23:00)
[2022-11-03] MEDS: Enoxaparin Sodium 30 MG/0.3 ML SYRINGE SC SCH (09:03)
[2022-11-03] MEDS: predniSONE 20 MG TAB PO SCH (09:06)
[2022-11-03] MEDS: Aspirin Chewable 81 MG TAB PO SCH (09:06)
[2022-11-03] MEDS: Baclofen 10 MG TAB PO SCH ×3 (09:06→22:08)
[2022-11-03] MEDS: Docusate 100 MG CAP PO SCH (09:06)
[2022-11-03] MEDS: Lidocaine 5% Patch TD SCH (09:52)
[2022-11-03 10:44] LABS: Anion Gap 18 mmol/L (10-20); BUN (Urea Nitrogen) 57 mg/dL (9.8-20.1); Calc. Creatinine Clearance 44 mL/min (70-130); Calcium 8.4 mg/dL (7.8-10.44); Carbon Dioxide 23 mmol/L (22-29); Chloride 112 mmol/L (98-107); Estimated GFR 26; Glucose 86 mg/dL (70-105); Potassium 4.2 mmol/L (3.5-5.1); Sodium 149 mmol/L (136-145)
[2022-11-03] MEDS ORDERED: Morphine 4 MG/ML VIAL ONE (11:19)
[2022-11-03] MEDS: Morphine 4 MG/ML VIAL SLOW IVP PRN ×5 (11:20→23:05)
[2022-11-03] MEDS: fentaNYL 75 mcg/hour Patch TD SCH (12:07)
[2022-11-03] MEDS: Linezolid 600 MG in Premix Bag 1 BAG IVPB SCH (12:09)
[2022-11-03] MEDS: Pramipexole Di-HCl 1 MG TAB PO SCH (22:08)
[2022-11-03] MEDS: Transdermal Patch Removal TOP SCH (22:08)
[2022-11-04] MEDS: Lorazepam 2 MG/ML VIAL SLOW IVP PRN ×2 (00:51→04:46)
[2022-11-04] MEDS: Morphine 4 MG/ML VIAL SLOW IVP PRN ×5 (03:52→18:01)
[2022-11-04 05:16] LABS: #Eosinphils 0.5 thou/uL (0.0-0.7); #Lymphocytes 1.8 thou/uL (1.20-3.40); #Neutrophils 19.9 thou/uL (1.40-6.50); %Eosinophils 2.1 % (0.0-10.0); %Lymphocytes 7.5 % (21.0-51.0); %Monocytes 8.4 % (0.0-10.0); Hemoglobin 8.8 g/dL (12.0-16.0); Mean Corpuscular HGB CONC 30.8 g/dL (32.0-36.0); Mean Corpuscular Hemoglobin 27.8 pg (27.0-31.0); Mean Corpuscular Volume 90.2 fl (78.0-98.0); Mean Platelet Volume 9.2 fL (7.4-10.4); Platelet Count 213 10x3/uL (130-400); RBC Distribution Width 16.9 % (11.5-14.5); Red Blood Cell (RBC) Count 3.19 mill/uL (4.20-5.40); White Blood Cell (WBC) Count 24.3 10x3/uL (4.8-10.8)
[2022-11-04 05:21] LABS: Anion Gap 14 mmol/L (10-20); BUN (Urea Nitrogen) 44 mg/dL (9.8-20.1); Calc. Creatinine Clearance 58 mL/min (70-130); Calcium 8.4 mg/dL (7.8-10.44); Carbon Dioxide 27 mmol/L (22-29); Chloride 111 mmol/L (98-107); Estimated GFR 36; Glucose 91 mg/dL (70-105); Potassium 3.6 mmol/L (3.5-5.1); Sodium 148 mmol/L (136-145)
[2022-11-04] MEDS: Budesonide 0.5 MG/2 ML NEB NEB SCH ×2 (07:41→18:39)
[2022-11-04] MEDS: Baclofen 10 MG TAB PO SCH ×3 (08:10→23:06)
[2022-11-04] MEDS: Docusate 100 MG CAP PO SCH (08:10)
[2022-11-04] MEDS: Aspirin Chewable 81 MG TAB PO SCH (08:10)
[2022-11-04] MEDS: methylPREDNISolone Sod Succ 40 MG VIAL IVP SCH (08:24)
[2022-11-04] MEDS: Enoxaparin Sodium 40 MG/0.4 ML SYRINGE SC SCH (08:24)
[2022-11-04] MEDS: Lidocaine 5% Patch TD SCH (08:34)
[2022-11-04] MEDS: Dextrose 5% in Water 1,000 ML IV SCH (11:19)
[2022-11-04] MEDS: Scopolamine 1.5 mg/72 hour Patch TD SCH (11:19)
[2022-11-04] MEDS ORDERED: Nitroglycerin 2% Ointment 1 INCH/1 GM Packet TOP SCH (14:15)
[2022-11-04] MEDS ORDERED: Furosemide 40 MG/4 ML VIAL SLOW IVP SCH (17:45)
[2022-11-04] MEDS: Transdermal Patch Removal TOP SCH (23:06)
[2022-11-04] MEDS: Pramipexole Di-HCl 1 MG TAB PO SCH (23:06)
[2022-11-05] MEDS: Morphine 4 MG/ML VIAL SLOW IVP PRN ×6 (01:34→21:03)
[2022-11-05] MEDS: Lorazepam 2 MG/ML VIAL SLOW IVP PRN ×3 (04:11→20:20)
[2022-11-05 04:57] LABS: #Eosinphils 0.1 thou/uL (0.0-0.7); #Lymphocytes 1.5 thou/uL (1.20-3.40); #Monocytes 2.3 thou/uL (0.11-0.59); #Neutrophils 16.8 thou/uL (1.40-6.50); %Eosinophils 0.5 % (0.0-10.0); %Lymphocytes 7.3 % (21.0-51.0); %Neutrophils 81.2 % (42.0-75.0); Hemoglobin 8.6 g/dL (12.0-16.0); Mean Corpuscular HGB CONC 30.9 g/dL (32.0-36.0); Mean Corpuscular Hemoglobin 27.9 pg (27.0-31.0); Mean Corpuscular Volume 90.1 fl (78.0-98.0); Mean Platelet Volume 8.6 fL (7.4-10.4); Platelet Count 213 10x3/uL (130-400); RBC Distribution Width 16.6 % (11.5-14.5); Red Blood Cell (RBC) Count 3.09 mill/uL (4.20-5.40); White Blood Cell (WBC) Count 20.7 10x3/uL (4.8-10.8)
[2022-11-05 05:22] LABS: Anion Gap 16 mmol/L (10-20); BUN (Urea Nitrogen) 37 mg/dL (9.8-20.1); Calc. Creatinine Clearance 64 mL/min (70-130); Calcium 8.7 mg/dL (7.8-10.44); Carbon Dioxide 28 mmol/L (22-29); Chloride 111 mmol/L (98-107); Estimated GFR 43; Glucose 75 mg/dL (70-105); Potassium 3.2 mmol/L (3.5-5.1)
[2022-11-05 05:50] LABS: Sodium 152 mmol/L (136-145)
[2022-11-05] MEDS: Budesonide 0.5 MG/2 ML NEB NEB SCH ×2 (06:25→19:31)
[2022-11-05] MEDS: Docusate 100 MG CAP PO SCH (09:05)
[2022-11-05] MEDS: Baclofen 10 MG TAB PO SCH ×3 (09:05→20:19)
[2022-11-05] MEDS: Aspirin Chewable 81 MG TAB PO SCH (09:05)
[2022-11-05] MEDS: methylPREDNISolone Sod Succ 40 MG VIAL IVP SCH (09:10)
[2022-11-05] MEDS: Enoxaparin Sodium 40 MG/0.4 ML SYRINGE SC SCH (09:12)
[2022-11-05] MEDS: Lidocaine 5% Patch TD SCH (09:12)
[2022-11-05] MEDS: Pramipexole Di-HCl 1 MG TAB PO SCH (20:19)
[2022-11-05] MEDS: Transdermal Patch Removal TOP SCH (20:20)
[2022-11-06] MEDS: Morphine 4 MG/ML VIAL SLOW IVP PRN ×5 (00:50→23:38)
[2022-11-06] MEDS: Lorazepam 2 MG/ML VIAL SLOW IVP PRN ×3 (00:50→19:03)
[2022-11-06] MEDS: Budesonide 0.5 MG/2 ML NEB NEB SCH ×2 (06:30→18:45)
[2022-11-06] MEDS: Baclofen 10 MG TAB PO SCH ×3 (09:58→22:36)
[2022-11-06] MEDS: Docusate 100 MG CAP PO SCH (09:58)
[2022-11-06] MEDS: Aspirin Chewable 81 MG TAB PO SCH (09:58)
[2022-11-06] MEDS: Enoxaparin Sodium 40 MG/0.4 ML SYRINGE SC SCH (10:05)
[2022-11-06] MEDS: methylPREDNISolone Sod Succ 40 MG VIAL IVP SCH (10:06)
[2022-11-06] MEDS: Ondansetron PF 4 MG/2 ML Vial IVP PRN (10:06)
[2022-11-06] MEDS: Lidocaine 5% Patch TD SCH (10:06)
[2022-11-06] MEDS: fentaNYL 75 mcg/hour Patch TD SCH (13:23)
[2022-11-06] MEDS: Transdermal Patch Removal TOP SCH (22:37)
[2022-11-06] MEDS: Pramipexole Di-HCl 1 MG TAB PO SCH (22:37)
[2022-11-07] MEDS: Morphine 4 MG/ML VIAL SLOW IVP PRN ×3 (05:58→20:18)
[2022-11-07] MEDS: Lorazepam 2 MG/ML VIAL SLOW IVP PRN ×3 (05:58→20:18)
[2022-11-07] MEDS: Budesonide 0.5 MG/2 ML NEB NEB SCH ×2 (07:32→20:36)
[2022-11-07] MEDS: Aspirin Chewable 81 MG TAB PO SCH (08:11)
[2022-11-07] MEDS: Baclofen 10 MG TAB PO SCH ×3 (08:11→20:18)
[2022-11-07] MEDS: Docusate 100 MG CAP PO SCH (08:11)
[2022-11-07] MEDS: Enoxaparin Sodium 40 MG/0.4 ML SYRINGE SC SCH (08:15)
[2022-11-07] MEDS: methylPREDNISolone Sod Succ 40 MG VIAL IVP SCH (08:15)
[2022-11-07] MEDS: Lidocaine 5% Patch TD SCH (08:15)
[2022-11-07] MEDS: Scopolamine 1.5 mg/72 hour Patch TD SCH (11:50)
[2022-11-07] MEDS: Pramipexole Di-HCl 1 MG TAB PO SCH (20:18)
[2022-11-07] MEDS: Transdermal Patch Removal TOP SCH (20:29)
[2022-11-08] MEDS: Budesonide 0.5 MG/2 ML NEB NEB SCH ×2 (06:58→18:27)
[2022-11-08] MEDS: Aspirin Chewable 81 MG TAB PO SCH (08:30)
[2022-11-08] MEDS: Enoxaparin Sodium 40 MG/0.4 ML SYRINGE SC SCH (08:30)
[2022-11-08] MEDS: Baclofen 10 MG TAB PO SCH ×3 (08:30→20:35)
[2022-11-08] MEDS: Lidocaine 5% Patch TD SCH (08:31)
[2022-11-08] MEDS: Docusate 100 MG CAP PO SCH (08:31)
[2022-11-08 08:33] LABS: #Lymphocytes 1.8 thou/uL (1.20-3.40); #Monocytes 0.8 thou/uL (0.11-0.59); #Neutrophils 11.4 thou/uL (1.40-6.50); %Basophils 0.2 % (0.0-1.0); %Eosinophils 6.6 % (0.0-10.0); %Lymphocytes 11.9 % (21.0-51.0); %Monocytes 5.5 % (0.0-10.0); %Neutrophils 75.8 % (42.0-75.0); Mean Corpuscular HGB CONC 30.5 g/dL (32.0-36.0); Mean Corpuscular Hemoglobin 27.4 pg (27.0-31.0); Mean Corpuscular Volume 89.8 fl (78.0-98.0); Mean Platelet Volume 8.7 fL (7.4-10.4); Platelet Count 155 10x3/uL (130-400); RBC Distribution Width 16.8 % (11.5-14.5); Red Blood Cell (RBC) Count 2.93 mill/uL (4.20-5.40); White Blood Cell (WBC) Count 15.1 10x3/uL (4.8-10.8)
[2022-11-08 08:50] LABS: Anion Gap 13 mmol/L (10-20); BUN (Urea Nitrogen) 20 mg/dL (9.8-20.1); Calc. Creatinine Clearance 98 mL/min (70-130); Calcium 7.9 mg/dL (7.8-10.44); Carbon Dioxide 31 mmol/L (22-29); Chloride 105 mmol/L (98-107); Estimated GFR 73; Glucose 79 mg/dL (70-105); Potassium 3.1 mmol/L (3.5-5.1); Sodium 146 mmol/L (136-145)
[2022-11-08] MEDS ORDERED: methylPREDNISolone Sod Succ 40 MG VIAL IVP SCH (09:00)
[2022-11-08] MEDS ORDERED: Potassium Chloride 40 MEQ in Premix Bag 1 BAG IVPB SCH (16:15)
[2022-11-08] MEDS ORDERED: Potassium Chloride 20 MEQ in Premix Bag 1 BAG IVPB SCH (16:30)
[2022-11-08] MEDS ORDERED: Furosemide 40 MG/4 ML VIAL SLOW IVP SCH (16:30)
[2022-11-08] MEDS ORDERED: Albumin 25% 25 GM/100 ML BOT IVPB SCH (16:30)
[2022-11-08] MEDS: Potassium Chloride 20 MEQ in Premix Bag 1 BAG IVPB SCH ×2 (18:45→20:44)
[2022-11-08] MEDS: Pramipexole Di-HCl 1 MG TAB PO SCH (20:35)
[2022-11-08] MEDS: Transdermal Patch Removal TOP SCH (20:35)
[2022-11-09] MEDS: Budesonide 0.5 MG/2 ML NEB NEB SCH ×2 (06:38→18:19)
[2022-11-09 07:18] LABS: Mean Corpuscular HGB CONC 30.4 g/dL (32.0-36.0); Mean Corpuscular Hemoglobin 27.7 pg (27.0-31.0); Mean Corpuscular Volume 91.1 fl (78.0-98.0); Mean Platelet Volume 9.2 fL (7.4-10.4); Platelet Count 172 10x3/uL (130-400); RBC Distribution Width 17.3 % (11.5-14.5); Red Blood Cell (RBC) Count 3.24 mill/uL (4.20-5.40); White Blood Cell (WBC) Count 21.4 10x3/uL (4.8-10.8)
[2022-11-09 07:28] LABS: ALT (SGPT) 34 U/L (8-55); AST (SGOT) 23 U/L (5-34); Albumin 3.3 g/dL (3.5-5.0); Alkaline Phosphatase 74 U/L (40-110); Anion Gap 15 mmol/L (10-20); BUN (Urea Nitrogen) 18 mg/dL (9.8-20.1); Calc. Creatinine Clearance 81 mL/min (70-130); Calcium 8.7 mg/dL (7.8-10.44); Carbon Dioxide 33 mmol/L (22-29); Chloride 98 mmol/L (98-107); Estimated GFR 62; Globulin 3.1 g/dL (2.4-3.5); Glucose 90 mg/dL (70-105); Magnesium 1.1 mg/dL (1.6-2.6); Potassium 3.2 mmol/L (3.5-5.1); Protein, Total 6.4 g/dL (6.0-8.3); Sodium 143 mmol/L (136-145)
[2022-11-09 07:56] LABS: Band 1 % (5-11); Eosinophils 4 % (0-10); Hypochromia SLIGHT = 6-15 cells (100X) (0-5/hpf); Lymphocytes 10 % (21-51); MDiff Complete? YES; Monocytes 4 % (0-10); Neutrophil 80 % (42-75); Platelet Morphology Comment Appears Adequate; Polychromasia SLIGHT = 2-3 cells (100X) (0-2/hpf); Reactive Lymphocytes 1 % (0-10)
[2022-11-09] MEDS ORDERED: Potassium Chloride 20 MEQ TAB PO SCH (08:15)
[2022-11-09] MEDS: predniSONE 20 MG TAB PO SCH (08:24)
[2022-11-09] MEDS: Baclofen 10 MG TAB PO SCH ×3 (08:24→21:18)
[2022-11-09] MEDS: Enoxaparin Sodium 40 MG/0.4 ML SYRINGE SC SCH (08:24)
[2022-11-09] MEDS: Docusate 100 MG CAP PO SCH (08:24)
[2022-11-09] MEDS: Aspirin Chewable 81 MG TAB PO SCH (08:24)
[2022-11-09] MEDS: Lidocaine 5% Patch TD SCH (08:24)
[2022-11-09] MEDS ORDERED: Furosemide 40 MG/4 ML VIAL SLOW IVP SCH (10:00)
[2022-11-09] MEDS: Albumin 25% 25 GM/100 ML BOT IVPB SCH ×3 (11:37→21:19)
[2022-11-09] MEDS: fentaNYL 75 mcg/hour Patch TD SCH (11:41)
[2022-11-09] MEDS ORDERED: Magnesium Sulfate 4 GM in Sodium Chloride 0.9% 250 ML 250 ML IVPB SCH ×2 (17:00→17:15)
[2022-11-09] MEDS: Pramipexole Di-HCl 1 MG TAB PO SCH (21:18)
[2022-11-09] MEDS: Transdermal Patch Removal TOP SCH (21:19)
[2022-11-10] MEDS: Ondansetron PF 4 MG/2 ML Vial IVP PRN (00:30)
[2022-11-10] MEDS: Morphine 4 MG/ML VIAL SLOW IVP PRN ×2 (02:18→06:59)
[2022-11-10 06:33] LABS: #Eosinphils 1.2 thou/uL (0.0-0.7); #Lymphocytes 1.8 thou/uL (1.20-3.40); #Monocytes 0.7 thou/uL (0.11-0.59); #Neutrophils 14.9 thou/uL (1.40-6.50); %Basophils 0.1 % (0.0-1.0); %Eosinophils 6.3 % (0.0-10.0); %Lymphocytes 9.9 % (21.0-51.0); %Monocytes 3.8 % (0.0-10.0); %Neutrophils 79.9 % (42.0-75.0); Hemoglobin 8.5 g/dL (12.0-16.0); Mean Corpuscular Hemoglobin 28.4 pg (27.0-31.0); Mean Corpuscular Volume 88.8 fl (78.0-98.0); Mean Platelet Volume 9.4 fL (7.4-10.4); Platelet Count 140 10x3/uL (130-400); RBC Distribution Width 17.4 % (11.5-14.5); Red Blood Cell (RBC) Count 2.99 mill/uL (4.20-5.40); White Blood Cell (WBC) Count 18.6 10x3/uL (4.8-10.8)
[2022-11-10 06:49] LABS: Phosphorus 1.5 mg/dL (2.3-4.7)
[2022-11-10 06:50] LABS: Anion Gap 11 mmol/L (10-20); BUN (Urea Nitrogen) 13 mg/dL (9.8-20.1); Calc. Creatinine Clearance 93 mL/min (70-130); Calcium 8.8 mg/dL (7.8-10.44); Carbon Dioxide 35 mmol/L (22-29); Chloride 96 mmol/L (98-107); Estimated GFR 73; Glucose 91 mg/dL (70-105); Magnesium 1.9 mg/dL (1.6-2.6); Sodium 139 mmol/L (136-145)
[2022-11-10] MEDS ORDERED: Magnesium 2 GM/50 ML(in water) 2 GM in Premix Bag 1 BAG IVPB SCH (07:00)
[2022-11-10] MEDS ORDERED: Electrolyte Replacement Protocol FS PRN (07:00)
[2022-11-10] MEDS: Budesonide 0.5 MG/2 ML NEB NEB SCH (07:01)
[2022-11-10] MEDS: Enoxaparin Sodium 40 MG/0.4 ML SYRINGE SC SCH (08:28)
[2022-11-10] MEDS: Lidocaine 5% Patch TD SCH (08:28)
[2022-11-10] MEDS: Aspirin Chewable 81 MG TAB PO SCH (08:28)
[2022-11-10] MEDS: Docusate 100 MG CAP PO SCH (08:29)
[2022-11-10] MEDS: PHOS-NAK 1 PKT PACK PO SCH ×4 (08:29→20:04)
[2022-11-10] MEDS: Baclofen 10 MG TAB PO SCH ×3 (08:29→20:54)
[2022-11-10] MEDS: Furosemide 40 MG TAB PO SCH (08:29)
[2022-11-10] MEDS: predniSONE 20 MG TAB PO SCH (08:29)
[2022-11-10] MEDS: Potassium Bicarbonate/Cit Ac 20 MEQ TAB PO SCH ×2 (08:33→11:21)
[2022-11-10] MEDS: Scopolamine 1.5 mg/72 hour Patch TD SCH (11:21)
[2022-11-10] MEDS ORDERED: Thiamine 100 MG TAB PO SCH (14:45)
[2022-11-10] MEDS ORDERED: Naproxen 500 MG TAB PO SCH (15:00)
[2022-11-10] MEDS ORDERED: Albuterol Sulfate 2.5 mg/3 ml Neb NEB PRN (15:09)
[2022-11-10] MEDS: Nicotine 7 MG PATCH TD SCH (16:13)
[2022-11-10] MEDS: Mometasone 100 MCG/Formoterol 5 MCG 120 PUFF INHALER INH SCH ×2 (17:41→19:15)
[2022-11-10] MEDS: Pramipexole Di-HCl 1 MG TAB PO SCH (20:52)
[2022-11-10] MEDS: Calcium Carbonate 500 MG ChewTAB PO PRN (20:53)
[2022-11-10] MEDS: traZODone HCl 50 MG TAB PO PRN (20:53)
[2022-11-10] MEDS: Naproxen 500 MG TAB PO SCH (20:53)
[2022-11-10] MEDS: Transdermal Patch Removal TOP SCH (20:54)
[2022-11-11] MEDS: Mometasone 100 MCG/Formoterol 5 MCG 120 PUFF INHALER INH SCH ×2 (06:44→19:22)
[2022-11-11] MEDS: Morphine 4 MG/ML VIAL SLOW IVP PRN (08:14)
[2022-11-11] MEDS: Lidocaine 5% Patch TD SCH (08:15)
[2022-11-11] MEDS: predniSONE 20 MG TAB PO SCH (08:16)
[2022-11-11] MEDS: Baclofen 10 MG TAB PO SCH ×3 (08:16→20:06)
[2022-11-11] MEDS: Docusate 100 MG CAP PO SCH (08:16)
[2022-11-11] MEDS: Furosemide 40 MG TAB PO SCH (08:16)
[2022-11-11] MEDS: Aspirin Chewable 81 MG TAB PO SCH (08:16)
[2022-11-11] MEDS: Thiamine 100 MG TAB PO SCH (08:16)
[2022-11-11] MEDS: Enoxaparin Sodium 40 MG/0.4 ML SYRINGE SC SCH (08:16)
[2022-11-11] MEDS ORDERED: Potassium Chloride 20 MEQ TAB PO SCH ×2 (08:30→14:15)
[2022-11-11 09:14] LABS: #Eosinphils 1.2 thou/uL (0.0-0.7); #Lymphocytes 1.8 thou/uL (1.20-3.40); #Monocytes 0.6 thou/uL (0.11-0.59); #Neutrophils 13.8 thou/uL (1.40-6.50); %Eosinophils 6.9 % (0.0-10.0); %Monocytes 3.7 % (0.0-10.0); %Neutrophils 79.3 % (42.0-75.0); Hemoglobin 9.3 g/dL (12.0-16.0); Mean Corpuscular HGB CONC 31.6 g/dL (32.0-36.0); Mean Corpuscular Hemoglobin 28.3 pg (27.0-31.0); Mean Corpuscular Volume 89.6 fl (78.0-98.0); Mean Platelet Volume 9.9 fL (7.4-10.4); Platelet Count 146 10x3/uL (130-400); RBC Distribution Width 17.6 % (11.5-14.5); Red Blood Cell (RBC) Count 3.28 mill/uL (4.20-5.40); White Blood Cell (WBC) Count 17.4 10x3/uL (4.8-10.8)
[2022-11-11 09:49] LABS: Phosphorus 2.8 mg/dL (2.3-4.7)
[2022-11-11 09:50] LABS: Anion Gap 16 mmol/L (10-20); BUN (Urea Nitrogen) 14 mg/dL (9.8-20.1); Calc. Creatinine Clearance 89 mL/min (70-130); Calcium 8.6 mg/dL (7.8-10.44); Carbon Dioxide 34 mmol/L (22-29); Chloride 94 mmol/L (98-107); Estimated GFR 70; Glucose 84 mg/dL (70-105); Magnesium 1.7 mg/dL (1.6-2.6); Potassium 3.4 mmol/L (3.5-5.1); Sodium 141 mmol/L (136-145)
[2022-11-11] MEDS: Naproxen 500 MG TAB PO SCH ×2 (10:26→20:04)
[2022-11-11] MEDS ORDERED: Magnesium 2 GM/50 ML(in water) 2 GM in Premix Bag 1 BAG IVPB SCH ×2 (11:30→16:00)
[2022-11-11] MEDS: Nicotine 7 MG PATCH TD SCH (15:59)
[2022-11-11] MEDS: Pramipexole Di-HCl 1 MG TAB PO SCH (20:05)
[2022-11-11] MEDS: oxyCODONE/Acetaminophen 5 mg/325 mg Tablet PO PRN (20:08)
[2022-11-11] MEDS: Transdermal Patch Removal TOP SCH (21:00)
[2022-11-12] MEDS: Calcium Carbonate 500 MG ChewTAB PO PRN (00:22)
[2022-11-12] MEDS: Morphine 4 MG/ML VIAL SLOW IVP PRN (00:23)
[2022-11-12] MEDS: Mometasone 100 MCG/Formoterol 5 MCG 120 PUFF INHALER INH SCH (07:14)
[2022-11-12 07:41] LABS: #Eosinphils 1.5 thou/uL (0.0-0.7); #Lymphocytes 1.9 thou/uL (1.20-3.40); #Monocytes 0.6 thou/uL (0.11-0.59); #Neutrophils 14.7 thou/uL (1.40-6.50); %Basophils 0.1 % (0.0-1.0); %Eosinophils 7.9 % (0.0-10.0); %Lymphocytes 10.3 % (21.0-51.0); %Monocytes 3.1 % (0.0-10.0); %Neutrophils 78.7 % (42.0-75.0); Hemoglobin 9.6 g/dL (12.0-16.0); Mean Corpuscular HGB CONC 30.4 g/dL (32.0-36.0); Mean Corpuscular Hemoglobin 27.5 pg (27.0-31.0); Mean Corpuscular Volume 90.5 fl (78.0-98.0); Mean Platelet Volume 9.8 fL (7.4-10.4); Platelet Count 183 10x3/uL (130-400); RBC Distribution Width 17.8 % (11.5-14.5); Red Blood Cell (RBC) Count 3.49 mill/uL (4.20-5.40); White Blood Cell (WBC) Count 18.7 10x3/uL (4.8-10.8)
[2022-11-12] MEDS: Aspirin Chewable 81 MG TAB PO SCH (08:24)
[2022-11-12] MEDS: Ondansetron PF 4 MG/2 ML Vial IVP PRN (08:24)
[2022-11-12] MEDS: Baclofen 10 MG TAB PO SCH ×2 (08:24→15:02)
[2022-11-12] MEDS: Thiamine 100 MG TAB PO SCH (08:24)
[2022-11-12] MEDS: predniSONE 20 MG TAB PO SCH (08:25)
[2022-11-12] MEDS: Docusate 100 MG CAP PO SCH (08:25)
[2022-11-12] MEDS: Enoxaparin Sodium 40 MG/0.4 ML SYRINGE SC SCH (08:25)
[2022-11-12] MEDS: Furosemide 40 MG TAB PO SCH (08:25)
[2022-11-12] MEDS: Lidocaine 5% Patch TD SCH (08:48)
[2022-11-12] MEDS: Naproxen 500 MG TAB PO SCH (08:56)
[2022-11-12 10:35] VITALS: BP 128/76; TEMP 98.8
[2022-11-12] MEDS: fentaNYL 75 mcg/hour Patch TD SCH (11:32)
[2022-11-12 14:59] LABS: Chloride 96 mmol/L (98-107); Potassium 4.4 mmol/L (3.5-5.1); Sodium 137 mmol/L (136-145)
[2022-11-12 15:00] LABS: Glucose 118 mg/dL (70-105)
[2022-11-12 15:01] LABS: Anion Gap 16 mmol/L (10-20); Carbon Dioxide 29 mmol/L (22-29)
[2022-11-12 15:03] LABS: Calc. Creatinine Clearance 84 mL/min (70-130); Estimated GFR 65; Phosphorus 2.7 mg/dL (2.3-4.7)
[2022-11-12 15:04] LABS: BUN (Urea Nitrogen) 17 mg/dL (9.8-20.1)
[2022-11-12] MEDS: Nicotine 7 MG PATCH TD SCH (15:56)
[2022-11-12 16:08] VITALS: BMI 33.0
== END 2022-11-12 17:10 | disposition home health service (06) | DRG 870 ==
LOC: ERS 15:04 → CCU 15:40 → T4-A 10-29 18:13 → IMCU/EMU 11-03 06:39 → T4-B 11-08 18:04
PROVIDERS: ADMIT Hospitalist; ATTEND Hospitalist
PROC: 5A1955Z Respiratory Ventilation, Greater than 96 Consecutive Hours (ICD-10-PCS; principal; 2022-10-23)
PROC: 3E04329 Introduction of Other Anti-infective into Central Vein, Percutaneous Approach (ICD-10-PCS; 2022-10-23)
PROC: 3E043XZ Introduction of Vasopressor into Central Vein, Percutaneous Approach (ICD-10-PCS; 2022-10-23)
PROC: 0BH17EZ Insertion of Endotracheal Airway into Trachea, Via Natural or Artificial Opening (ICD-10-PCS; 2022-10-23)
PROC: 02HV33Z Insertion of Infusion Device into Superior Vena Cava, Percutaneous Approach (ICD-10-PCS; 2022-10-23)
PROC: B548ZZA Ultrasonography of Superior Vena Cava, Guidance (ICD-10-PCS; 2022-10-23)
PROC: 0D9670Z Drainage of Stomach with Drainage Device, Via Natural or Artificial Opening (ICD-10-PCS; 2022-10-23)
PROC: 3E0G76Z Introduction of Nutritional Substance into Upper GI, Via Natural or Artificial Opening (ICD-10-PCS; 2022-10-23)
PROC: 5A0935A Assistance with Respiratory Ventilation, Less than 24 Consecutive Hours, High Flow/Velocity Cannula (ICD-10-PCS; 2022-10-28)
PROC: 5A09357 Assistance with Respiratory Ventilation, Less than 24 Consecutive Hours, Continuous Positive Airway Pressure (ICD-10-PCS; 2022-11-03)
DX: A41.9 Sepsis, unspecified organism (principal); J96.21 Acute and chronic respiratory failure with hypoxia; I50.33 Acute on chronic diastolic (congestive) heart failure; J18.9 Pneumonia, unspecified organism; R65.21 Severe sepsis with septic shock; K72.00 Acute and subacute hepatic failure without coma; G93.41 Metabolic encephalopathy; N17.0 Acute kidney failure with tubular necrosis; J96.22 Acute and chronic respiratory failure with hypercapnia; J44.0 Chronic obstructive pulmonary disease with (acute) lower respiratory infection; J44.1 Chronic obstructive pulmonary disease with (acute) exacerbation; E87.3 Alkalosis; N39.0 Urinary tract infection, site not specified; I13.2 Hypertensive heart and chronic kidney disease with heart failure and with stage 5 chronic kidney disease, or end stage renal disease; N18.5 Chronic kidney disease, stage 5; E87.1 Hypo-osmolality and hyponatremia; E87.0 Hyperosmolality and hypernatremia; Z66 Do not resuscitate; Z20.822 Contact with and (suspected) exposure to COVID-19; Z51.5 Encounter for palliative care; M94.0 Chondrocostal junction syndrome [Tietze]; F32.A Depression, unspecified; E87.5 Hyperkalemia; F41.9 Anxiety disorder, unspecified; I25.10 Atherosclerotic heart disease of native coronary artery without angina pectoris; K76.82 Hepatic encephalopathy; K43.9 Ventral hernia without obstruction or gangrene; T81.89XA Other complications of procedures, not elsewhere classified, initial encounter; Y83.8 Other surgical procedures as the cause of abnormal reaction of the patient, or of later complication, without mention of misadventure at the time of the procedure; R62.7 Adult failure to thrive; D63.1 Anemia in chronic kidney disease; B95.62 Methicillin resistant Staphylococcus aureus infection as the cause of diseases classified elsewhere; G89.4 Chronic pain syndrome; F39 Unspecified mood [affective] disorder; E16.2 Hypoglycemia, unspecified; E87.6 Hypokalemia; D69.6 Thrombocytopenia, unspecified; N14.11 Contrast-induced nephropathy; T50.8X5A Adverse effect of diagnostic agents, initial encounter; R56.9 Unspecified convulsions; Z90.49 Acquired absence of other specified parts of digestive tract; Z78.1 Physical restraint status; Z88.0 Allergy status to penicillin; Z99.81 Dependence on supplemental oxygen; Z88.1 Allergy status to other antibiotic agents; Z88.5 Allergy status to narcotic agent; Z88.8 Allergy status to other drugs, medicaments and biological substances; Z87.891 Personal history of nicotine dependence; Z79.82 Long term (current) use of aspirin; Z90.710 Acquired absence of both cervix and uterus; I25.2 Old myocardial infarction; Z68.33 Body mass index [BMI] 33.0-33.9, adult
CPT/HCPCS: 31500; 36415; 36416; 36556; 36600; 51702; 70450; 71045; 71275; 74018; 74177; 80048; 80053; 80074; 80076; 80307; 81001; 82140; 82550; 82553; 82728; 82805; 83605; 83735; 83880; 84100; 84145; 84443; 84484; 85025; 85610; 85730; 86850; 86900; 86901; 87040; 87077; 87086; 87186; 87449; 87811; 87899; 93005; 93306; 94002; 94003; 94640; 94660; 96365; 96366; 96368; 96375; 96376; 97139; C9113; J0456; J0692; J1610; J1644; J1650; J1940; J2020; J2060; J2185; J2270; J2405; J2704; J2920; J2930; J3010; J3370; J3475; J3480; J3490; J7050; J7070; J7512; J7611; J7620; J7626; J7999; P9047; Q9967; U0003; U0005

== ENCOUNTER 2023-02-02 23:46 | Inpatient (IN) | payer BC, MEDICARE ==
[2023-02-03 00:18] LABS: Hemoglobin 10.4 g/dL (12.0-16.0); Mean Corpuscular HGB CONC 31.5 g/dL (32.0-36.0); Mean Corpuscular Hemoglobin 28.6 pg (27.0-31.0); Mean Corpuscular Volume 90.8 fl (78.0-98.0); Mean Platelet Volume 7.3 fL (7.4-10.4); Platelet Count 462 10x3/uL (130-400); RBC Distribution Width 15.5 % (11.5-14.5); Red Blood Cell (RBC) Count 3.63 mill/uL (4.20-5.40); White Blood Cell (WBC) Count 14.8 10x3/uL (4.8-10.8)
[2023-02-03] MEDS ORDERED: FENTANYL 50 MCG/ML 1 ML VIAL ONE ×2 (00:22→04:23)
[2023-02-03 00:40] LABS: ALT (SGPT) 23 U/L (8-55); AST (SGOT) 50 U/L (5-34); Albumin 1.8 g/dL (3.5-5.0); Alkaline Phosphatase 298 U/L (40-110); Anion Gap 13 mmol/L (10-20); BUN (Urea Nitrogen) 8 mg/dL (9.8-20.1); Bilirubin, Total 0.4 mg/dL (0.2-1.2); CK (CPK) 24 U/L (29-168); Calc. Creatinine Clearance 0 mL/min (70-130); Calcium 9.5 mg/dL (7.8-10.44); Carbon Dioxide 30 mmol/L (22-29); Chloride 96 mmol/L (98-107); Estimated GFR 94; Globulin 4.6 g/dL (2.4-3.5); Glucose 90 mg/dL (70-105); Potassium 3.8 mmol/L (3.5-5.1); Protein, Total 6.4 g/dL (6.0-8.3); Sodium 135 mmol/L (136-145)
[2023-02-03 00:51] LABS: Anisocytosis SLIGHT = 6-15 cells (100X) (0-5/hpf); Band 6 % (5-11); Eosinophils 33 % (0-10); Hypochromia SLIGHT = 6-15 cells (100X) (0-5/hpf); Lymphocytes 17 % (21-51); MDiff Complete? YES; Monocytes 5 % (0-10); Neutrophil 39 % (42-75); Platelet Morphology Comment Appears Increased; Target Cells SLIGHT = 2-5 cells (100X) (0-1/hpf); Tear Drops SLIGHT = 2-5 cells (100X) (0-1/hpf)
[2023-02-03 01:27] LABS: Bacteria/HPF 3+ HPF (None Seen); Bilirubin Negative (Negative); Blood, Urine Trace (Negative); Calcium Oxalate Crystals Rare HPF (None Seen); Clarity Extra Turbid (Clear); Glucose, Urine (Dipstick) Normal (Negative); Ketone, Urine Negative (Negative); Leukocyte 500 Leu/uL (Negative); Nitrite Negative (Negative); Protein, Urine (Dipstick) 50 mg/dL (Neg-Trace); Specific Gravity, Urine 1.015 (1.002-1.036); Squamous Epithelial 0-3 HPF (0-3); Urobilinogen Normal mg/dL (Less than 2); WBC/HPF Greater than 50 HPF (0-3); pH, Urine 7.5 (5.0-9.0)
[2023-02-03] MEDS ORDERED: Linezolid 600 MG in Premix Bag 1 BAG IVPB SCH ×2 (01:30→14:00)
[2023-02-03] MEDS ORDERED: Meropenem 1 GM in Sodium Chloride 0.9% 100 ML IVPB SCH ×2 (01:30→09:00)
[2023-02-03 04:32] LABS: Lactic Acid 2.8 mmol/L (0.5-2.2)
[2023-02-03 05:19] LABS: Troponin I Less than 0.010 ng/mL (< 0.028)
[2023-02-03 05:27] VITALS: BMI 23.3
[2023-02-03] MEDS ORDERED: Ondansetron ODT 4 MG TAB SL PRN (05:45)
[2023-02-03] MEDS ORDERED: Ondansetron PF 4 MG/2 ML Vial IVP PRN (05:45)
[2023-02-03] MEDS ORDERED: Sodium Chloride 0.9% 1,000 ML IV SCH (05:45)
[2023-02-03] MEDS ORDERED: Acetaminophen 325 MG TAB PO PRN ×2 (05:45→08:09)
[2023-02-03 08:05] LABS: Troponin I Less than 0.010 ng/mL (< 0.028)
[2023-02-03] MEDS ORDERED: Bisacodyl 5 MG TAB PO PRN (08:09)
[2023-02-03] MEDS: HYDROcodone/Acetaminophen 5/325 mg Tablet PO PRN ×2 (11:58→16:55)
[2023-02-03] MEDS ORDERED: FENTANYL 50 MCG/ML 1 ML VIAL SLOW IVP SCH (12:00)
[2023-02-03] MEDS: Meropenem 1 GM in Sodium Chloride 0.9% 100 ML IVPB SCH (16:57)
[2023-02-03] MEDS ORDERED: ALPRAZolam 0.25 MG TAB PO PRN (18:39)
[2023-02-03] MEDS: HYDROmorphone 2 MG TAB PO SCH (23:17)
[2023-02-04] MEDS: Ondansetron PF 4 MG/2 ML Vial IVP PRN (00:08)
[2023-02-04] MEDS: Ipratropium/Albuterol 3 ML NEB NEB PRN ×3 (00:20→14:02)
[2023-02-04] MEDS: HYDROcodone/Acetaminophen 5/325 mg Tablet PO PRN ×4 (00:28→17:05)
[2023-02-04] MEDS: Meropenem 1 GM in Sodium Chloride 0.9% 100 ML IVPB SCH ×3 (00:37→21:03)
[2023-02-04 04:51] LABS: Anion Gap 10 mmol/L (10-20); BUN (Urea Nitrogen) 5 mg/dL (9.8-20.1); Calc. Creatinine Clearance 129 mL/min (70-130); Calcium 8.3 mg/dL (7.8-10.44); Carbon Dioxide 23 mmol/L (22-29); Chloride 103 mmol/L (98-107); Estimated GFR 110; Glucose 83 mg/dL (70-105); Potassium 3.9 mmol/L (3.5-5.1); Sodium 132 mmol/L (136-145)
[2023-02-04 04:54] LABS: Band 1 % (5-11); Eosinophils 38 % (0-10); Hypochromia SLIGHT = 6-15 cells (100X) (0-5/hpf); Lymphocytes 3 % (21-51); MDiff Complete? YES; Mean Corpuscular HGB CONC 32.2 g/dL (32.0-36.0); Mean Corpuscular Hemoglobin 29.2 pg (27.0-31.0); Mean Corpuscular Volume 90.9 fl (78.0-98.0); Mean Platelet Volume 7.3 fL (7.4-10.4); Monocytes 18 % (0-10); Neutrophil 39 % (42-75); Platelet Count 345 10x3/uL (130-400); Platelet Morphology Comment Appears Adequate; RBC Distribution Width 15.3 % (11.5-14.5); Reactive Lymphocytes 1 % (0-10); Red Blood Cell (RBC) Count 3.09 mill/uL (4.20-5.40)
[2023-02-04] MEDS: HYDROmorphone 2 MG TAB PO SCH ×3 (06:40→18:13)
[2023-02-04] MEDS: Ipratropium/Albuterol 3 ML NEB NEB SCH ×2 (07:37→11:18)
[2023-02-04] MEDS ORDERED: Non-Formulary Item 1 EACH (Estradiol [Estradiol] 2 MG Tablet) PO SCH (09:00)
[2023-02-04] MEDS: ALPRAZolam 1 MG TAB PO SCH ×3 (09:28→21:03)
[2023-02-04] MEDS: Aspirin 81 mg Enteric Coated Tablet PO SCH (09:29)
[2023-02-04] MEDS: Estradiol 1 MG TAB PO SCH (09:29)
[2023-02-04] MEDS: Furosemide 40 MG TAB PO SCH ×2 (09:29→21:03)
[2023-02-04] MEDS: Montelukast Sodium 10 mg Tablet PO SCH (09:29)
[2023-02-04] MEDS: DULoxetine 60 MG CAP PO SCH (09:29)
[2023-02-04] MEDS: Ipratropium 200 Puff Oral Inhaler INH SCH ×3 (10:35→19:46)
[2023-02-04] MEDS: Albuterol 200 PUFF (6.7GM INHALER) INH SCH ×2 (10:35→19:45)
[2023-02-04] MEDS: FENTANYL 50 MCG/ML 1 ML VIAL SLOW IVP PRN ×3 (13:21→21:18)
[2023-02-04] MEDS ORDERED: Non-Formulary Item 1 EACH (Trazodone Hcl [Trazodone Hcl] 100 MG Tablet) PO SCH (21:00)
[2023-02-04] MEDS ORDERED: Non-Formulary Item 1 EACH (Pramipexole Di-Hcl [Mirapex] 0.5 MG Tablet) PO SCH (21:00)
[2023-02-04] MEDS: traZODone HCl 50 MG TAB PO SCH (21:03)
[2023-02-04] MEDS: Pramipexole Di-HCl 1 MG TAB PO SCH (21:04)
[2023-02-05] MEDS: HYDROmorphone 2 MG TAB PO SCH ×4 (01:40→18:30)
[2023-02-05] MEDS: Meropenem 1 GM in Sodium Chloride 0.9% 100 ML IVPB SCH ×3 (01:42→16:57)
[2023-02-05] MEDS: Ondansetron PF 4 MG/2 ML Vial IVP PRN ×2 (01:58→08:36)
[2023-02-05] MEDS: FENTANYL 50 MCG/ML 1 ML VIAL SLOW IVP PRN ×5 (02:40→22:38)
[2023-02-05] MEDS: IPRATROPIUM NEB PRN ×3 (04:45→22:48)
[2023-02-05] MEDS: ALBUTEROL NEB PRN ×3 (04:45→22:48)
[2023-02-05] MEDS ORDERED: Ondansetron PF 4 MG/2 ML Vial IVP SCH (04:45)
[2023-02-05] MEDS: Albuterol 200 PUFF (6.7GM INHALER) INH SCH ×4 (08:34→19:05)
[2023-02-05] MEDS: Ipratropium 200 Puff Oral Inhaler INH SCH ×4 (08:35→19:03)
[2023-02-05] MEDS: Furosemide 40 MG TAB PO SCH ×2 (10:20→21:47)
[2023-02-05] MEDS: Montelukast Sodium 10 mg Tablet PO SCH (10:20)
[2023-02-05] MEDS: Estradiol 1 MG TAB PO SCH (10:20)
[2023-02-05] MEDS: ALPRAZolam 1 MG TAB PO SCH ×3 (10:21→21:47)
[2023-02-05] MEDS: Aspirin 81 mg Enteric Coated Tablet PO SCH (10:21)
[2023-02-05] MEDS: DULoxetine 60 MG CAP PO SCH (10:21)
[2023-02-05] MEDS: traZODone HCl 50 MG TAB PO SCH (21:46)
[2023-02-05] MEDS: Pramipexole Di-HCl 1 MG TAB PO SCH (21:47)
[2023-02-06] MEDS: Meropenem 1 GM in Sodium Chloride 0.9% 100 ML IVPB SCH ×3 (01:54→17:16)
[2023-02-06] MEDS: HYDROmorphone 2 MG TAB PO SCH ×4 (02:13→19:00)
[2023-02-06] MEDS: FENTANYL 50 MCG/ML 1 ML VIAL SLOW IVP PRN ×4 (02:28→16:06)
[2023-02-06] MEDS: ALBUTEROL NEB PRN (02:57)
[2023-02-06] MEDS: IPRATROPIUM NEB PRN (02:57)
[2023-02-06 05:55] LABS: Eosinophils 24 % (0-10); Hemoglobin 10.3 g/dL (12.0-16.0); Hypochromia SLIGHT = 6-15 cells (100X) (0-5/hpf); Lymphocytes 21 % (21-51); MDiff Complete? YES; Mean Corpuscular HGB CONC 32.5 g/dL (32.0-36.0); Mean Corpuscular Hemoglobin 29.7 pg (27.0-31.0); Mean Corpuscular Volume 91.3 fl (78.0-98.0); Mean Platelet Volume 7.2 fL (7.4-10.4); Monocytes 8 % (0-10); Neutrophil 47 % (42-75); Platelet Count 366 10x3/uL (130-400); Platelet Morphology Comment Appears Adequate; RBC Distribution Width 15.4 % (11.5-14.5); Red Blood Cell (RBC) Count 3.47 mill/uL (4.20-5.40); White Blood Cell (WBC) Count 14.8 10x3/uL (4.8-10.8)
[2023-02-06 06:02] LABS: Anion Gap 9 mmol/L (10-20); BUN (Urea Nitrogen) 6 mg/dL (9.8-20.1); Calc. Creatinine Clearance 118 mL/min (70-130); Calcium 8.5 mg/dL (7.8-10.44); Carbon Dioxide 32 mmol/L (22-29); Chloride 94 mmol/L (98-107); Estimated GFR 108; Glucose 102 mg/dL (70-105); Sodium 132 mmol/L (136-145)
[2023-02-06 06:05] LABS: Potassium 2.6 mmol/L (3.5-5.1)
[2023-02-06] MEDS ORDERED: Potassium Chloride 20 MEQ in Premix Bag 1 BAG IVPB SCH (06:30)
[2023-02-06] MEDS: Ipratropium 200 Puff Oral Inhaler INH SCH ×4 (07:20→18:56)
[2023-02-06] MEDS: Albuterol 200 PUFF (6.7GM INHALER) INH SCH ×4 (07:24→18:56)
[2023-02-06] MEDS: Potassium Chloride 20 MEQ TAB PO SCH ×2 (09:15→10:07)
[2023-02-06] MEDS: Montelukast Sodium 10 mg Tablet PO SCH (09:19)
[2023-02-06] MEDS: DULoxetine 60 MG CAP PO SCH (09:20)
[2023-02-06] MEDS: Furosemide 40 MG TAB PO SCH ×2 (09:20→21:25)
[2023-02-06] MEDS: Aspirin 81 mg Enteric Coated Tablet PO SCH (09:20)
[2023-02-06] MEDS: ALPRAZolam 1 MG TAB PO SCH ×3 (09:20→22:47)
[2023-02-06] MEDS: Estradiol 1 MG TAB PO SCH (11:33)
[2023-02-06 12:54] LABS: Anion Gap 12 mmol/L (10-20); BUN (Urea Nitrogen) 5 mg/dL (9.8-20.1); Calc. Creatinine Clearance 122 mL/min (70-130); Calcium 8.3 mg/dL (7.8-10.44); Carbon Dioxide 31 mmol/L (22-29); Chloride 93 mmol/L (98-107); Estimated GFR 109; Glucose 101 mg/dL (70-105); Magnesium 1.4 mg/dL (1.6-2.6); Potassium 3.4 mmol/L (3.5-5.1); Sodium 133 mmol/L (136-145)
[2023-02-06] MEDS: Pramipexole Di-HCl 1 MG TAB PO SCH (21:21)
[2023-02-06] MEDS: traZODone HCl 50 MG TAB PO SCH (21:24)
[2023-02-07] MEDS: HYDROmorphone 2 MG TAB PO SCH ×4 (01:05→19:18)
[2023-02-07] MEDS: Meropenem 1 GM in Sodium Chloride 0.9% 100 ML IVPB SCH ×2 (01:07→09:59)
[2023-02-07] MEDS: FENTANYL 50 MCG/ML 1 ML VIAL SLOW IVP PRN ×3 (05:15→14:19)
[2023-02-07] MEDS: IPRATROPIUM NEB PRN (05:35)
[2023-02-07] MEDS: ALBUTEROL NEB PRN (05:35)
[2023-02-07 05:50] LABS: BUN (Urea Nitrogen) 6 mg/dL (9.8-20.1); Calc. Creatinine Clearance 129 mL/min (70-130); Calcium 8.3 mg/dL (7.8-10.44); Estimated GFR 110; Glucose 85 mg/dL (70-105)
[2023-02-07 05:53] LABS: Anisocytosis SLIGHT = 6-15 cells (100X) (0-5/hpf); Eosinophils 52 % (0-10); Hypochromia SLIGHT = 6-15 cells (100X) (0-5/hpf); Lymphocytes 18 % (21-51); MDiff Complete? YES; Mean Corpuscular HGB CONC 31.4 g/dL (32.0-36.0); Mean Corpuscular Hemoglobin 28.8 pg (27.0-31.0); Mean Corpuscular Volume 91.6 fl (78.0-98.0); Mean Platelet Volume 7.5 fL (7.4-10.4); Monocytes 4 % (0-10); Neutrophil 26 % (42-75); Platelet Count 331 10x3/uL (130-400); Platelet Morphology Comment Appears Adequate; RBC Distribution Width 15.3 % (11.5-14.5); Red Blood Cell (RBC) Count 3.48 mill/uL (4.20-5.40); Target Cells SLIGHT = 2-5 cells (100X) (0-1/hpf); White Blood Cell (WBC) Count 14.4 10x3/uL (4.8-10.8)
[2023-02-07 05:59] LABS: Chloride 92 mmol/L (98-107); Potassium 3.1 mmol/L (3.5-5.1); Sodium 134 mmol/L (136-145)
[2023-02-07 06:02] LABS: Anion Gap 10 mmol/L (10-20); Carbon Dioxide 35 mmol/L (22-29)
[2023-02-07] MEDS: Albuterol 200 PUFF (6.7GM INHALER) INH SCH ×4 (07:54→19:18)
[2023-02-07] MEDS: Ipratropium 200 Puff Oral Inhaler INH SCH ×4 (07:54→19:19)
[2023-02-07] MEDS: DULoxetine 60 MG CAP PO SCH (08:39)
[2023-02-07] MEDS: Estradiol 1 MG TAB PO SCH (08:40)
[2023-02-07] MEDS: ALPRAZolam 1 MG TAB PO SCH ×3 (08:40→21:27)
[2023-02-07] MEDS: Montelukast Sodium 10 mg Tablet PO SCH (08:40)
[2023-02-07] MEDS: Furosemide 40 MG TAB PO SCH ×2 (08:40→21:29)
[2023-02-07] MEDS: Aspirin 81 mg Enteric Coated Tablet PO SCH (08:40)
[2023-02-07] MEDS ORDERED: Potassium Bicarbonate/Cit Ac 20 MEQ TAB PO SCH (09:00)
[2023-02-07] MEDS ORDERED: Fosfomycin 3 GM/Packet PO SCH (15:15)
[2023-02-07] MEDS ORDERED: Acetaminophen 500 MG TAB PO PRN (16:19)
[2023-02-07] MEDS ORDERED: oxyCODONE 5 MG TAB PO PRN (16:20)
[2023-02-07] MEDS: oxyCODONE 5 MG TAB PO PRN ×2 (16:42→21:27)
[2023-02-07] MEDS: traZODone HCl 50 MG TAB PO SCH (21:26)
[2023-02-07] MEDS: Pramipexole Di-HCl 1 MG TAB PO SCH (21:28)
[2023-02-08] MEDS: HYDROmorphone 2 MG TAB PO SCH ×3 (00:45→12:43)
[2023-02-08] MEDS: Ondansetron PF 4 MG/2 ML Vial IVP PRN ×2 (04:01→09:27)
[2023-02-08] MEDS: oxyCODONE 5 MG TAB PO PRN ×2 (04:04→08:41)
[2023-02-08 06:17] LABS: Hemoglobin 10.1 g/dL (12.0-16.0); Mean Corpuscular HGB CONC 32.2 g/dL (32.0-36.0); Mean Corpuscular Hemoglobin 29.4 pg (27.0-31.0); Mean Corpuscular Volume 91.3 fl (78.0-98.0); Mean Platelet Volume 7.3 fL (7.4-10.4); Platelet Count 308 10x3/uL (130-400); RBC Distribution Width 15.2 % (11.5-14.5); Red Blood Cell (RBC) Count 3.42 mill/uL (4.20-5.40); White Blood Cell (WBC) Count 13.9 10x3/uL (4.8-10.8)
[2023-02-08 06:30] LABS: BUN (Urea Nitrogen) 7 mg/dL (9.8-20.1); Calc. Creatinine Clearance 134 mL/min (70-130); Calcium 8.5 mg/dL (7.8-10.44); Estimated GFR 111; Glucose 94 mg/dL (70-105)
[2023-02-08] MEDS ORDERED: Sodium Chloride 0.65% Nasal 44 ML BOT EA NARE PRN (06:35)
[2023-02-08 06:40] LABS: Anion Gap 15 mmol/L (10-20); Carbon Dioxide 36 mmol/L (22-29); Chloride 85 mmol/L (98-107); Potassium 2.9 mmol/L (3.5-5.1); Sodium 133 mmol/L (136-145)
[2023-02-08] MEDS: Albuterol 200 PUFF (6.7GM INHALER) INH SCH ×2 (06:49→13:04)
[2023-02-08 06:52] LABS: Eosinophils 55 % (0-10); Lymphocytes 15 % (21-51); MDiff Complete? YES; Monocytes 2 % (0-10); Neutrophil 28 % (42-75)
[2023-02-08] MEDS: Ipratropium 200 Puff Oral Inhaler INH SCH ×2 (06:55→13:06)
[2023-02-08] MEDS: Estradiol 1 MG TAB PO SCH (08:39)
[2023-02-08] MEDS: Aspirin 81 mg Enteric Coated Tablet PO SCH (08:41)
[2023-02-08] MEDS: ALPRAZolam 1 MG TAB PO SCH (08:42)
[2023-02-08] MEDS: Furosemide 40 MG TAB PO SCH (08:42)
[2023-02-08] MEDS: Montelukast Sodium 10 mg Tablet PO SCH (08:42)
[2023-02-08] MEDS: DULoxetine 60 MG CAP PO SCH (08:42)
[2023-02-08] MEDS: Potassium Bicarbonate/Cit Ac 20 MEQ TAB PO SCH ×2 (08:59→12:44)
[2023-02-08 13:22] VITALS: BP 116/76; TEMP 97.3
== END 2023-02-08 14:16 | disposition home or self-care (01) | DRG 871 ==
LOC: ERS 23:46 → 2NO 02-03 05:14 → MSONC 02-04 19:47
PROVIDERS: ADMIT Hospitalist; ATTEND Hospitalist
DX: A41.52 Sepsis due to Pseudomonas (principal); L89.013 Pressure ulcer of right elbow, stage 3; L89.023 Pressure ulcer of left elbow, stage 3; L03.115 Cellulitis of right lower limb; M86.8X7 Other osteomyelitis, ankle and foot; I50.32 Chronic diastolic (congestive) heart failure; A41.81 Sepsis due to Enterococcus; Z66 Do not resuscitate; Z20.822 Contact with and (suspected) exposure to COVID-19; G89.4 Chronic pain syndrome; I25.10 Atherosclerotic heart disease of native coronary artery without angina pectoris; F32.A Depression, unspecified; Z88.1 Allergy status to other antibiotic agents; Z88.5 Allergy status to narcotic agent; Z88.0 Allergy status to penicillin; Z88.8 Allergy status to other drugs, medicaments and biological substances; Z99.81 Dependence on supplemental oxygen; Z90.49 Acquired absence of other specified parts of digestive tract; I25.2 Old myocardial infarction; Z87.891 Personal history of nicotine dependence
CPT/HCPCS: 36415; 36416; 71045; 80048; 80053; 81003; 81015; 82550; 83605; 83735; 84484; 85025; 87040; 87070; 87077; 87086; 87186; 87205; 93005; 93010; 96365; 96375; 96376; 97139; J1650; J2020; J2185; J2405; J3010; J3480; J3490; J7050; J7620; Q0162; U0003; U0005

== ENCOUNTER 2023-02-25 02:21 | Inpatient (IN) | payer BC, MEDICARE ==
[2023-02-25] MEDS ORDERED: cefTRIAXone (ROCEPHIN) 1 GM VIAL ONE (03:21)
[2023-02-25] MEDS ORDERED: Ketorolac Tromethamine 30 MG/ML VIAL ONE (03:58)
[2023-02-25 03:59] LABS: Hemoglobin 9.4 g/dL (12.0-16.0); Mean Corpuscular HGB CONC 32.3 g/dL (32.0-36.0); Mean Corpuscular Hemoglobin 29.3 pg (27.0-31.0); Mean Corpuscular Volume 90.9 fl (78.0-98.0); Platelet Count 797 10x3/uL (130-400); RBC Distribution Width 15.8 % (11.5-14.5); Red Blood Cell (RBC) Count 3.21 mill/uL (4.20-5.40); White Blood Cell (WBC) Count 19.1 10x3/uL (4.8-10.8)
[2023-02-25 04:17] LABS: ALT (SGPT) 11 U/L (8-55); AST (SGOT) 16 U/L (5-34); Albumin 2.3 g/dL (3.5-5.0); Alkaline Phosphatase 163 U/L (40-110); Anion Gap 12 mmol/L (10-20); BUN (Urea Nitrogen) 10 mg/dL (9.8-20.1); Bilirubin, Total 0.2 mg/dL (0.2-1.2); Calc. Creatinine Clearance 0 mL/min (70-130); Calcium 10.3 mg/dL (7.8-10.44); Carbon Dioxide 26 mmol/L (22-29); Chloride 102 mmol/L (98-107); Estimated GFR 103; Globulin 4.6 g/dL (2.4-3.5); Glucose 85 mg/dL (70-105); Potassium 4.1 mmol/L (3.5-5.1); Protein, Total 6.9 g/dL (6.0-8.3); Sodium 136 mmol/L (136-145)
[2023-02-25] MEDS ORDERED: Ipratropium/Albuterol 3 ML NEB ONE (04:34)
[2023-02-25 04:38] LABS: Bacteria/HPF 4+ HPF (None Seen); Bilirubin Negative (Negative); Blood, Urine Negative (Negative); Clarity Turbid (Clear); Glucose, Urine (Dipstick) Normal (Negative); Ketone, Urine Negative (Negative); Leukocyte 500 Leu/uL (Negative); Nitrite Negative (Negative); Protein, Urine (Dipstick) 20 mg/dL (Neg-Trace); Specific Gravity, Urine 1.023 (1.002-1.036); Squamous Epithelial 0-3 HPF (0-3); Urobilinogen Normal mg/dL (Less than 2); WBC/HPF Greater than 50 HPF (0-3)
[2023-02-25 04:56] LABS: Band 1 % (5-11); Eosinophils 45 % (0-10); Lymphocytes 22 % (21-51); MDiff Complete? YES; Monocytes 1 % (0-10); Neutrophil 31 % (42-75); Platelet Morphology Comment Appears Increased
[2023-02-25] MEDS ORDERED: Azithromycin 500 MG VIAL ONE (05:44)
[2023-02-25] MEDS ORDERED: Ondansetron ODT 4 MG TAB PO PRN (05:47)
[2023-02-25] MEDS ORDERED: Acetaminophen 325 MG TAB PO PRN (05:47)
[2023-02-25] MEDS ORDERED: ALPRAZolam 1 MG TAB PO SCH (09:00)
[2023-02-25] MEDS: DULoxetine 60 MG CAP PO SCH (09:45)
[2023-02-25] MEDS: Montelukast Sodium 10 mg Tablet PO SCH (09:45)
[2023-02-25] MEDS: Famotidine 20 MG TAB PO SCH ×2 (09:45→20:25)
[2023-02-25] MEDS: Furosemide 40 MG TAB PO SCH ×2 (09:45→20:25)
[2023-02-25] MEDS: methylPREDNISolone Sod Succ 40 MG VIAL IVP SCH ×2 (09:45→20:24)
[2023-02-25] MEDS: Ipratropium/Albuterol 3 ML NEB NEB SCH ×4 (10:02→23:48)
[2023-02-25] MEDS: Aztreonam 1 GM in Sodium Chloride 0.9% 100 ML IVPB SCH ×2 (11:25→20:25)
[2023-02-25] MEDS ORDERED: HYDROMORPHONE HCL 8 MG PO PRN (11:39)
[2023-02-25] MEDS: oxyCODONE 5 MG TAB PO PRN ×2 (12:14→16:21)
[2023-02-25] MEDS: ALPRAZolam 1 MG TAB PO SCH ×2 (16:21→20:24)
[2023-02-25 17:18] VITALS: BMI 25.5
[2023-02-25] MEDS: traMADol HCl 50 MG TAB PO SCH (20:22)
[2023-02-25] MEDS: HYDROmorphone 2 MG TAB PO PRN (20:23)
[2023-02-25] MEDS: Pramipexole Di-HCl 1 MG TAB PO SCH (20:24)
[2023-02-25] MEDS: traZODone HCl 50 MG TAB PO SCH (20:24)
[2023-02-25] MEDS: CeleCOXIB 100 MG CAP PO SCH (20:25)
[2023-02-25] MEDS ORDERED: Non-Formulary Item 1 EACH (Pramipexole Di-Hcl [Mirapex] 0.5 MG Tablet) PO SCH (21:00)
[2023-02-25] MEDS ORDERED: Non-Formulary Item 1 EACH (Celecoxib [Celecoxib] 200 MG Capsule) PO SCH (21:00)
[2023-02-25] MEDS ORDERED: Non-Formulary Item 1 EACH (Trazodone Hcl [Trazodone Hcl] 100 MG Tablet) PO SCH (21:00)
[2023-02-25] MEDS ORDERED: TRAMADOL HCL 100 MG PO SCH (21:00)
[2023-02-26] MEDS: oxyCODONE 5 MG TAB PO PRN ×3 (01:02→17:17)
[2023-02-26] MEDS: Ipratropium/Albuterol 3 ML NEB NEB SCH ×4 (06:45→23:55)
[2023-02-26 07:34] LABS: Anion Gap 12 mmol/L (10-20); BUN (Urea Nitrogen) 11 mg/dL (9.8-20.1); Calc. Creatinine Clearance 131 mL/min (70-130); Calcium 9.7 mg/dL (7.8-10.44); Carbon Dioxide 25 mmol/L (22-29); Chloride 105 mmol/L (98-107); Estimated GFR 108; Glucose 118 mg/dL (70-105); Sodium 138 mmol/L (136-145)
[2023-02-26] MEDS: CeleCOXIB 100 MG CAP PO SCH ×2 (08:44→20:31)
[2023-02-26] MEDS: Furosemide 40 MG TAB PO SCH ×2 (08:44→20:32)
[2023-02-26] MEDS: ALPRAZolam 1 MG TAB PO SCH ×3 (08:44→20:29)
[2023-02-26] MEDS: Montelukast Sodium 10 mg Tablet PO SCH (08:44)
[2023-02-26] MEDS: DULoxetine 60 MG CAP PO SCH (08:48)
[2023-02-26] MEDS: Estradiol 1 MG TAB PO SCH (08:48)
[2023-02-26] MEDS: Famotidine 20 MG TAB PO SCH ×2 (08:49→20:32)
[2023-02-26] MEDS: Aspirin 81 mg Enteric Coated Tablet PO SCH (08:49)
[2023-02-26] MEDS: methylPREDNISolone Sod Succ 40 MG VIAL IVP SCH ×2 (08:49→20:31)
[2023-02-26] MEDS: Aztreonam 1 GM in Sodium Chloride 0.9% 100 ML IVPB SCH ×2 (08:54→20:29)
[2023-02-26] MEDS ORDERED: Non-Formulary Item 1 EACH (Estradiol [Estradiol] 2 MG Tablet) PO SCH (09:00)
[2023-02-26] MEDS: HYDROmorphone 2 MG TAB PO PRN (20:28)
[2023-02-26] MEDS: Pramipexole Di-HCl 1 MG TAB PO SCH (20:30)
[2023-02-26] MEDS: traZODone HCl 50 MG TAB PO SCH (20:32)
[2023-02-26] MEDS: Betamethasone Val 0.1% OINT 15 GM TUBE TOP SCH (20:32)
[2023-02-26] MEDS: traMADol HCl 50 MG TAB PO SCH (20:33)
[2023-02-26] MEDS: diphenhydrAMINE 25 MG CAP PO PRN (22:36)
[2023-02-27 07:40] LABS: #Eosinphils 0.2 thou/uL (0.0-0.7); #Lymphocytes 1.6 thou/uL (1.20-3.40); #Monocytes 1.1 thou/uL (0.11-0.59); #Neutrophils 8.5 thou/uL (1.40-6.50); %Basophils 0.2 % (0.0-1.0); %Eosinophils 1.5 % (0.0-10.0); %Lymphocytes 14.3 % (21.0-51.0); %Monocytes 9.5 % (0.0-10.0); %Neutrophils 74.6 % (42.0-75.0); Hemoglobin 7.9 g/dL (12.0-16.0); Mean Corpuscular HGB CONC 32.7 g/dL (32.0-36.0); Mean Corpuscular Hemoglobin 29.2 pg (27.0-31.0); Mean Corpuscular Volume 89.3 fl (78.0-98.0); Mean Platelet Volume 6.4 fL (7.4-10.4); Platelet Count 618 10x3/uL (130-400); RBC Distribution Width 15.7 % (11.5-14.5); Red Blood Cell (RBC) Count 2.71 mill/uL (4.20-5.40); White Blood Cell (WBC) Count 11.3 10x3/uL (4.8-10.8)
[2023-02-27] MEDS: Aztreonam 1 GM in Sodium Chloride 0.9% 100 ML IVPB SCH ×2 (07:59→20:45)
[2023-02-27] MEDS: oxyCODONE 5 MG TAB PO PRN ×2 (08:00→16:37)
[2023-02-27] MEDS: methylPREDNISolone Sod Succ 40 MG VIAL IVP SCH ×2 (08:00→20:43)
[2023-02-27] MEDS: ALPRAZolam 1 MG TAB PO SCH ×3 (08:03→20:45)
[2023-02-27] MEDS: DULoxetine 60 MG CAP PO SCH (08:03)
[2023-02-27] MEDS: Montelukast Sodium 10 mg Tablet PO SCH (08:03)
[2023-02-27] MEDS: Furosemide 40 MG TAB PO SCH ×2 (08:03→20:45)
[2023-02-27] MEDS: CeleCOXIB 100 MG CAP PO SCH ×2 (08:03→20:44)
[2023-02-27] MEDS: Aspirin 81 mg Enteric Coated Tablet PO SCH (08:03)
[2023-02-27] MEDS: Estradiol 1 MG TAB PO SCH (08:03)
[2023-02-27] MEDS: Famotidine 20 MG TAB PO SCH ×2 (08:03→20:45)
[2023-02-27 08:04] LABS: Anion Gap 12 mmol/L (10-20); BUN (Urea Nitrogen) 17 mg/dL (9.8-20.1); Calc. Creatinine Clearance 112 mL/min (70-130); Calcium 9.2 mg/dL (7.8-10.44); Carbon Dioxide 29 mmol/L (22-29); Chloride 101 mmol/L (98-107); Estimated GFR 104; Glucose 114 mg/dL (70-105); Sodium 138 mmol/L (136-145)
[2023-02-27] MEDS: Betamethasone Val 0.1% OINT 15 GM TUBE TOP SCH ×3 (08:04→20:45)
[2023-02-27] MEDS: Ipratropium/Albuterol 3 ML NEB NEB SCH ×2 (15:09→17:25)
[2023-02-27] MEDS: diphenhydrAMINE 25 MG CAP PO PRN (20:43)
[2023-02-27] MEDS: traZODone HCl 50 MG TAB PO SCH (20:44)
[2023-02-27] MEDS: Pramipexole Di-HCl 1 MG TAB PO SCH (20:44)
[2023-02-27] MEDS: HYDROmorphone 2 MG TAB PO PRN (20:44)
[2023-02-27] MEDS: traMADol HCl 50 MG TAB PO SCH (20:45)
[2023-02-28] MEDS: oxyCODONE 5 MG TAB PO PRN ×4 (00:17→20:57)
[2023-02-28] MEDS: Senokot S 8.6-50 MG TAB PO PRN ×2 (00:54→21:04)
[2023-02-28] MEDS: Ipratropium/Albuterol 3 ML NEB NEB SCH ×5 (07:49→23:16)
[2023-02-28] MEDS: CeleCOXIB 100 MG CAP PO SCH ×2 (08:51→20:56)
[2023-02-28] MEDS: ALPRAZolam 1 MG TAB PO SCH ×3 (08:52→20:56)
[2023-02-28] MEDS: Estradiol 1 MG TAB PO SCH (08:52)
[2023-02-28] MEDS: Furosemide 40 MG TAB PO SCH ×2 (08:52→20:58)
[2023-02-28] MEDS: Famotidine 20 MG TAB PO SCH ×2 (08:52→20:56)
[2023-02-28] MEDS: Montelukast Sodium 10 mg Tablet PO SCH (08:52)
[2023-02-28] MEDS: methylPREDNISolone Sod Succ 40 MG VIAL IVP SCH (08:52)
[2023-02-28] MEDS: DULoxetine 60 MG CAP PO SCH (08:52)
[2023-02-28] MEDS: Aspirin 81 mg Enteric Coated Tablet PO SCH (08:52)
[2023-02-28] MEDS: Betamethasone Val 0.1% OINT 15 GM TUBE TOP SCH ×3 (08:53→20:58)
[2023-02-28] MEDS: Aztreonam 1 GM in Sodium Chloride 0.9% 100 ML IVPB SCH (09:04)
[2023-02-28] MEDS: HYDROmorphone 2 MG TAB PO PRN ×3 (09:47→23:13)
[2023-02-28] MEDS ORDERED: Fosfomycin 3 GM/Packet PO SCH (14:00)
[2023-02-28] MEDS: Pramipexole Di-HCl 1 MG TAB PO SCH (20:55)
[2023-02-28] MEDS: traZODone HCl 50 MG TAB PO SCH (20:55)
[2023-02-28] MEDS: traMADol HCl 50 MG TAB PO SCH (20:59)
[2023-03-01] MEDS: HYDROmorphone 2 MG TAB PO PRN ×3 (04:42→18:57)
[2023-03-01 07:14] LABS: Hemoglobin 8.6 g/dL (12.0-16.0); Mean Corpuscular HGB CONC 32.2 g/dL (32.0-36.0); Mean Corpuscular Hemoglobin 29.6 pg (27.0-31.0); Mean Corpuscular Volume 91.8 fl (78.0-98.0); Mean Platelet Volume 6.6 fL (7.4-10.4); Platelet Count 522 10x3/uL (130-400); RBC Distribution Width 16.3 % (11.5-14.5); Red Blood Cell (RBC) Count 2.89 mill/uL (4.20-5.40)
[2023-03-01] MEDS: oxyCODONE 5 MG TAB PO PRN ×2 (07:14→12:35)
[2023-03-01 07:27] LABS: Anion Gap 12 mmol/L (10-20); BUN (Urea Nitrogen) 23 mg/dL (9.8-20.1); CRP (Inflammatory) 1.48 mg/dL (= or < 0.5); Calc. Creatinine Clearance 127 mL/min (70-130); Carbon Dioxide 31 mmol/L (22-29); Chloride 100 mmol/L (98-107); Estimated GFR 107; Glucose 86 mg/dL (70-105); Potassium 3.1 mmol/L (3.5-5.1); Sodium 140 mmol/L (136-145)
[2023-03-01] MEDS: Ipratropium/Albuterol 3 ML NEB NEB SCH ×3 (08:11→19:07)
[2023-03-01] MEDS: ALPRAZolam 1 MG TAB PO SCH ×3 (08:27→20:35)
[2023-03-01] MEDS: predniSONE 20 MG TAB PO SCH (08:27)
[2023-03-01] MEDS: Furosemide 40 MG TAB PO SCH ×2 (08:27→20:38)
[2023-03-01] MEDS: Montelukast Sodium 10 mg Tablet PO SCH (08:27)
[2023-03-01] MEDS: Estradiol 1 MG TAB PO SCH (08:27)
[2023-03-01] MEDS: DULoxetine 60 MG CAP PO SCH (08:28)
[2023-03-01] MEDS: CeleCOXIB 100 MG CAP PO SCH ×2 (08:28→20:38)
[2023-03-01] MEDS: Aspirin 81 mg Enteric Coated Tablet PO SCH (08:28)
[2023-03-01] MEDS: Famotidine 20 MG TAB PO SCH ×2 (08:28→20:37)
[2023-03-01 08:30] LABS: Eosinophils 3 % (0-10); Lymphocytes 19 % (21-51); MDiff Complete? YES; Monocytes 18 % (0-10); Myelocyte 2 % (0-0); Neutrophil 57 % (42-75); Platelet Morphology Comment Appears Increased; Polychromasia SLIGHT = 2-3 cells (100X) (0-2/hpf); Small Platelets SLIGHT
[2023-03-01] MEDS: Acetaminophen 500 MG TAB PO PRN (08:30)
[2023-03-01] MEDS: Betamethasone Val 0.1% OINT 15 GM TUBE TOP SCH ×3 (09:00→21:41)
[2023-03-01] MEDS: traMADol HCl 50 MG TAB PO SCH ×2 (09:03→20:35)
[2023-03-01] MEDS: Pramipexole Di-HCl 1 MG TAB PO SCH (20:35)
[2023-03-01] MEDS: traZODone HCl 50 MG TAB PO SCH (20:38)
[2023-03-02] MEDS: Ipratropium/Albuterol 3 ML NEB NEB SCH ×3 (01:46→13:51)
[2023-03-02] MEDS: HYDROmorphone 2 MG TAB PO PRN ×2 (03:55→12:16)
[2023-03-02] MEDS: Acetaminophen 500 MG TAB PO PRN (06:09)
[2023-03-02 08:35] LABS: Hemoglobin 8.8 g/dL (12.0-16.0); Mean Corpuscular HGB CONC 31.8 g/dL (32.0-36.0); Mean Corpuscular Hemoglobin 29.4 pg (27.0-31.0); Mean Corpuscular Volume 92.6 fl (78.0-98.0); Mean Platelet Volume 6.6 fL (7.4-10.4); Platelet Count 479 10x3/uL (130-400); RBC Distribution Width 16.7 % (11.5-14.5); Red Blood Cell (RBC) Count 2.98 mill/uL (4.20-5.40); White Blood Cell (WBC) Count 11.2 10x3/uL (4.8-10.8)
[2023-03-02 08:40] LABS: Anion Gap 12 mmol/L (10-20); BUN (Urea Nitrogen) 22 mg/dL (9.8-20.1); Calc. Creatinine Clearance 131 mL/min (70-130); Calcium 8.8 mg/dL (7.8-10.44); Carbon Dioxide 32 mmol/L (22-29); Chloride 98 mmol/L (98-107); Estimated GFR 108; Glucose 84 mg/dL (70-105); Potassium 3.6 mmol/L (3.5-5.1); Sodium 138 mmol/L (136-145)
[2023-03-02] MEDS: Aspirin 81 mg Enteric Coated Tablet PO SCH (09:15)
[2023-03-02] MEDS: DULoxetine 60 MG CAP PO SCH (09:15)
[2023-03-02] MEDS: Estradiol 1 MG TAB PO SCH (09:15)
[2023-03-02] MEDS: ALPRAZolam 1 MG TAB PO SCH (09:15)
[2023-03-02] MEDS: predniSONE 20 MG TAB PO SCH (09:16)
[2023-03-02] MEDS: CeleCOXIB 100 MG CAP PO SCH (09:16)
[2023-03-02] MEDS: Famotidine 20 MG TAB PO SCH (09:16)
[2023-03-02] MEDS: Montelukast Sodium 10 mg Tablet PO SCH (09:16)
[2023-03-02] MEDS: Furosemide 40 MG TAB PO SCH (09:17)
[2023-03-02] MEDS: traMADol HCl 50 MG TAB PO SCH (09:17)
[2023-03-02] MEDS: Betamethasone Val 0.1% OINT 15 GM TUBE TOP SCH (10:22)
[2023-03-02 11:02] LABS: Anisocytosis SLIGHT = 6-15 cells (100X) (0-5/hpf); Eosinophils 6 % (0-10); Lymphocytes 26 % (21-51); MDiff Complete? YES; Monocytes 10 % (0-10); Neutrophil 58 % (42-75); Platelet Morphology Comment Appears Increased; Polychromasia SLIGHT = 2-3 cells (100X) (0-2/hpf); Vacuoles SLIGHT
[2023-03-02 14:15] VITALS: BP 106/73; TEMP 97.3
== END 2023-03-02 14:50 | disposition hospice, home (50) | DRG 862 ==
LOC: ERS 02:21 → T4-A 07:35
PROVIDERS: ADMIT Hospitalist; ATTEND Hospitalist
PROC: 3E03329 Introduction of Other Anti-infective into Peripheral Vein, Percutaneous Approach (ICD-10-PCS; 2023-02-25)
PROC: 0HC7XZZ Extirpation of Matter from Abdomen Skin, External Approach (ICD-10-PCS; principal; 2023-02-27)
DX: T81.49XA Infection following a procedure, other surgical site, initial encounter (principal); A41.52 Sepsis due to Pseudomonas; T83.511A Infection and inflammatory reaction due to indwelling urethral catheter, initial encounter; J44.1 Chronic obstructive pulmonary disease with (acute) exacerbation; J96.11 Chronic respiratory failure with hypoxia; I50.32 Chronic diastolic (congestive) heart failure; N39.0 Urinary tract infection, site not specified; Z66 Do not resuscitate; Z51.5 Encounter for palliative care; Y84.6 Urinary catheterization as the cause of abnormal reaction of the patient, or of later complication, without mention of misadventure at the time of the procedure; F41.9 Anxiety disorder, unspecified; F32.A Depression, unspecified; G89.4 Chronic pain syndrome; D63.8 Anemia in other chronic diseases classified elsewhere; G62.9 Polyneuropathy, unspecified; Y83.8 Other surgical procedures as the cause of abnormal reaction of the patient, or of later complication, without mention of misadventure at the time of the procedure; Z99.81 Dependence on supplemental oxygen; Z88.1 Allergy status to other antibiotic agents; Z88.5 Allergy status to narcotic agent; Z88.0 Allergy status to penicillin; Z88.2 Allergy status to sulfonamides; Z88.8 Allergy status to other drugs, medicaments and biological substances; Z79.82 Long term (current) use of aspirin; I25.2 Old myocardial infarction; Z87.891 Personal history of nicotine dependence; Z90.49 Acquired absence of other specified parts of digestive tract; Z90.89 Acquired absence of other organs; Z98.1 Arthrodesis status; Z99.3 Dependence on wheelchair; Z74.01 Bed confinement status
CPT/HCPCS: 36415; 71045; 80048; 80053; 81003; 81015; 83605; 83880; 84484; 85025; 86140; 87070; 87077; 87086; 87186; 87205; 93005; 94640; 94760; 97139; J0456; J0696; J1885; J2920; J3490; J7512; J7620

== ENCOUNTER 2023-06-10 19:17 | Inpatient (IN) | payer BC, MEDICARE ==
[2023-06-10] MEDS ORDERED: Ondansetron ODT 4 MG TAB PO PRN (21:22)
[2023-06-10] MEDS ORDERED: Acetaminophen 325 MG TAB PO PRN (21:22)
[2023-06-10] MEDS ORDERED: Ondansetron PF 4 MG/2 ML Vial IVP PRN (21:22)
[2023-06-10] MEDS ORDERED: HYDROmorphone 0.5 MG/0.5 ML SYRINGE SLOW IVP SCH (21:30)
[2023-06-10 21:55] LABS: #Basophils 0.1 thou/uL (0.0-0.2); #Eosinphils 0.2 thou/uL (0.0-0.7); #Monocytes 1.7 thou/uL (0.11-0.59); #Neutrophils 13.7 thou/uL (1.40-6.50); %Basophils 0.3 % (0.0-1.0); %Eosinophils 1.1 % (0.0-10.0); %Lymphocytes 15.5 % (21.0-51.0); %Monocytes 9.1 % (0.0-10.0); %Neutrophils 71.8 % (42.0-75.0); Hematocrit 31.3 % (36.0-47.0); Hemoglobin 9.5 g/dL (12.0-16.0); Mean Corpuscular HGB CONC 30.4 g/dL (32.0-36.0); Mean Corpuscular Hemoglobin 28.2 pg (27.0-31.0); Mean Corpuscular Volume 92.9 fl (78.0-98.0); Mean Platelet Volume 9.8 fL (7.4-10.4); Platelet Count 349 10x3/uL (130-400); RBC Distribution Width 20.7 % (11.5-14.5); Red Blood Cell (RBC) Count 3.37 mill/uL (4.20-5.40); White Blood Cell (WBC) Count 19.1 10x3/uL (4.8-10.8)
[2023-06-10 22:16] LABS: ALT (SGPT) 107 U/L (8-55); AST (SGOT) 32 U/L (5-34); Albumin 3.2 g/dL (3.5-5.0); Alkaline Phosphatase 70 U/L (40-110); Anion Gap 13 mmol/L (10-20); BUN (Urea Nitrogen) 27 mg/dL (9.8-20.1); Bilirubin, Total 0.2 mg/dL (0.2-1.2); Calc. Creatinine Clearance 147 mL/min (70-130); Calcium 8.8 mg/dL (7.8-10.44); Carbon Dioxide 31 mmol/L (22-29); Chloride 99 mmol/L (98-107); Estimated GFR 108; Globulin 3.4 g/dL (2.4-3.5); Glucose 97 mg/dL (70-105); Potassium 4.5 mmol/L (3.5-5.1); Protein, Total 6.6 g/dL (6.0-8.3); Sodium 138 mmol/L (136-145)
[2023-06-10] MEDS ORDERED: fentaNYL 50 mcg/mL 1 mL Vial SLOW IVP SCH (23:00)
[2023-06-10] MEDS ORDERED: Nystatin Powder 15 GM BOT TOP PRN (23:02)
[2023-06-10] MEDS ORDERED: Temazepam 15 MG CAP PO PRN (23:02)
[2023-06-10] MEDS: Lorazepam 1 MG TAB PO PRN (23:23)
[2023-06-10] MEDS: Temazepam 15 MG CAP PO PRN (23:35)
[2023-06-10] MEDS: Pramipexole Di-HCl 0.25 MG TAB PO PRN (23:40)
[2023-06-11] MEDS: HYDROmorphone 2 MG TAB PO PRN ×2 (03:11→08:58)
[2023-06-11] MEDS: Acetaminophen/Codeine 30-300mg Tablet PO PRN ×2 (05:13→21:17)
[2023-06-11] MEDS: Lorazepam 1 MG TAB PO PRN (05:17)
[2023-06-11 06:13] LABS: Hematocrit 32.4 % (36.0-47.0); Hemoglobin 9.6 g/dL (12.0-16.0); Mean Corpuscular HGB CONC 29.6 g/dL (32.0-36.0); Mean Corpuscular Hemoglobin 27.8 pg (27.0-31.0); Mean Corpuscular Volume 93.9 fl (78.0-98.0); Mean Platelet Volume 9.7 fL (7.4-10.4); Platelet Count 341 10x3/uL (130-400); RBC Distribution Width 20.8 % (11.5-14.5); Red Blood Cell (RBC) Count 3.45 mill/uL (4.20-5.40); White Blood Cell (WBC) Count 18.9 10x3/uL (4.8-10.8)
[2023-06-11 06:15] LABS: Delete Auto Diff?? YES; Manual Diff?? YES
[2023-06-11 06:33] LABS: Anion Gap 11 mmol/L (10-20); BUN (Urea Nitrogen) 27 mg/dL (9.8-20.1); Calc. Creatinine Clearance 164 mL/min (70-130); Calcium 8.6 mg/dL (7.8-10.44); Carbon Dioxide 30 mmol/L (22-29); Chloride 99 mmol/L (98-107); Estimated GFR 111; Glucose 92 mg/dL (70-105); Potassium 4.2 mmol/L (3.5-5.1); Sodium 136 mmol/L (136-145)
[2023-06-11 06:56] LABS: Anisocytosis SLIGHT = 6-15 cells HPF (0-5); Band 1 % (5-11); CellaVision Operator ID LAB.GE; Eosinophils 8 % (0-10); Hypochromia SLIGHT = 6-15 cells HPF (0-5); Lymphocytes 16 % (21-51); Metamyelocyte 1 % (0-0); Monocytes 4 % (0-10); Myelocyte 2 % (0-0); Neutrophil 67 % (42-75); Platelet Adequacy Comment Platelets Normal; Polychromasia MODERATE = 3-4 cells HPF (0-2); Reactive Lymphocytes 1 % (0-10); Total Cell Count 100
[2023-06-11] MEDS: Famotidine 20 MG TAB PO SCH ×2 (08:58→21:19)
[2023-06-11] MEDS: Cefepime 2 GM in Sodium Chloride 0.9% 100 ML IVPB SCH ×2 (09:01→21:19)
[2023-06-11] MEDS: Ascorbic Acid 500 mg Chewable Tablet PO SCH ×2 (09:03→21:17)
[2023-06-11 12:05] LABS: Bilirubin Negative (Negative); Blood, Urine 2+ (Negative); CAUTI Indications for Culture Alt mental st,lethar; Clarity Turbid (Clear); Glucose, Urine (Dipstick) Normal (Negative); Ketone, Urine Negative (Negative); Leukocyte 500 Leu/uL (Negative); Nitrite 2+ (Negative); Protein, Urine (Dipstick) 10 mg/dL (Neg-Trace); RBC/HPF 21-50 HPF (0-3); Specific Gravity, Urine 1.015 (1.002-1.036); Squamous Epithelial 0-3 HPF (0-3); Urobilinogen Normal mg/dL (Less than 2); WBC/HPF Greater than 50 HPF (0-3); Yeast-Budding 1+ HPF (None Seen); pH, Urine 6.5 (5.0-9.0)
[2023-06-11 12:14] LABS: Bacteria/HPF 1+ HPF (None Seen); Yeast-Hyphae Rare HPF (None Seen)
[2023-06-11 12:15] LABS: Urine Culture Reflex Yes Yes
[2023-06-11] MEDS ORDERED: fentaNYL 50 mcg/mL 1 mL Vial ONE ×4 (12:53→19:21)
[2023-06-11] MEDS ORDERED: Vancomycin 1 GM VIAL ONE ×2 (14:23→15:40)
[2023-06-11] MEDS ORDERED: Bacitracin Zinc Ointment 30 gm TUBE ONE (15:40)
[2023-06-11] MEDS ORDERED: Thrombin 5000 UNITS/5 ML VIAL ONE (15:40)
[2023-06-11] MEDS ORDERED: Bupivacaine PF 0.5% 30 ML VIAL ONE (15:40)
[2023-06-11] MEDS ORDERED: fentaNYL PF 100 MCG/2 ML SYRINGE ONE (15:56)
[2023-06-11] MEDS ORDERED: Midazolam HCl 2 mg/2 ml Vial ONE (16:04)
[2023-06-11] MEDS ORDERED: Dexamethasone 20 MG/5 ML VIAL ONE (16:07)
[2023-06-11] MEDS ORDERED: PROPOFOL 200 MG/20 ML VIAL ONE (16:07)
[2023-06-11] MEDS ORDERED: Ondansetron PF 4 MG/2 ML Vial ONE (16:07)
[2023-06-11] MEDS ORDERED: Lidocaine 1% PF 5 ML VIAL ONE (16:07)
[2023-06-11] MEDS ORDERED: HYDROmorphone 0.5 MG/0.5 ML SYRINGE ONE (16:08)
[2023-06-11] MEDS ORDERED: Tobramycin Sulfate 1.2 GM VIAL ONE (16:46)
[2023-06-11] MEDS ORDERED: Promethazine HCl 25 MG/ML VIAL IM PRN ×3 (18:39→20:25)
[2023-06-11] MEDS ORDERED: Ondansetron HCl/PF 4 MG/2 ML Vial IVP PRN (18:39)
[2023-06-11] MEDS ORDERED: HYDROmorphone 2 MG/ML VIAL SLOW IVP PRN (18:39)
[2023-06-11] MEDS ORDERED: HYDROmorphone 2 MG/ML VIAL ONE (18:42)
[2023-06-11] MEDS ORDERED: Meperidine HCl/PF 25 MG/ML VIAL IM PRN ×2 (19:18→20:25)
[2023-06-11] MEDS: Temazepam 15 MG CAP PO PRN (22:00)
[2023-06-11] MEDS: Pramipexole Di-HCl 0.25 MG TAB PO PRN (22:00)
[2023-06-12] MEDS: HYDROmorphone 2 MG TAB PO PRN ×2 (00:45→05:59)
[2023-06-12] MEDS: Acetaminophen/Codeine 30-300mg Tablet PO PRN ×2 (04:08→12:54)
[2023-06-12] MEDS: Ascorbic Acid 500 mg Chewable Tablet PO SCH ×2 (09:54→21:13)
[2023-06-12] MEDS: Cefepime 2 GM in Sodium Chloride 0.9% 100 ML IVPB SCH ×2 (09:54→21:13)
[2023-06-12] MEDS: Famotidine 20 MG TAB PO SCH ×2 (09:54→21:13)
[2023-06-12] MEDS ORDERED: fentaNYL 50 mcg/mL 1 mL Vial SLOW IVP PRN (11:53)
[2023-06-12] MEDS ORDERED: Promethazine HCl 25 MG/ML VIAL IM PRN (14:19)
[2023-06-12] MEDS ORDERED: Ondansetron PF 4 MG/2 ML Vial IVP PRN (14:19)
[2023-06-12] MEDS ORDERED: Naloxone HCl 0.4 mg/ml Vial IV PRN (14:19)
[2023-06-12] MEDS ORDERED: Communication Order-Pharmacy FS SCH (14:30)
[2023-06-12] MEDS: HYDROmorphone 10 mg/100 ml CADD IVPB PRN (17:17)
[2023-06-12] MEDS: Ipratropium/Albuterol 3 ML NEB NEB PRN (19:15)
[2023-06-12] MEDS: Zolpidem Tartrate 5 MG TAB PO PRN (21:21)
[2023-06-12] MEDS: Pramipexole Di-HCl 0.25 MG TAB PO PRN (21:22)
[2023-06-13] MEDS: diphenhydrAMINE 25 MG CAP PO PRN (01:14)
[2023-06-13] MEDS: Ipratropium/Albuterol 3 ML NEB NEB PRN (02:13)
[2023-06-13] MEDS: HYDROmorphone 10 mg/100 ml CADD IVPB PRN ×2 (06:08→20:10)
[2023-06-13 06:36] LABS: #Basophils 0.1 thou/uL (0.0-0.2); #Eosinphils 1.4 thou/uL (0.0-0.7); #Monocytes 1.6 thou/uL (0.11-0.59); #Neutrophils 10.5 thou/uL (1.40-6.50); %Basophils 0.6 % (0.0-1.0); %Eosinophils 8.2 % (0.0-10.0); %Monocytes 9.7 % (0.0-10.0); %Neutrophils 63.1 % (42.0-75.0); Hematocrit 32.6 % (36.0-47.0); Hemoglobin 10.1 g/dL (12.0-16.0); Mean Corpuscular Volume 90.3 fl (78.0-98.0); Mean Platelet Volume 9.6 fL (7.4-10.4); Platelet Count 308 10x3/uL (130-400); Red Blood Cell (RBC) Count 3.61 mill/uL (4.20-5.40); White Blood Cell (WBC) Count 16.7 10x3/uL (4.8-10.8)
[2023-06-13] MEDS: Cefepime 2 GM in Sodium Chloride 0.9% 100 ML IVPB SCH ×2 (08:49→21:25)
[2023-06-13] MEDS: Ascorbic Acid 500 mg Chewable Tablet PO SCH ×2 (09:04→20:32)
[2023-06-13] MEDS: Famotidine 20 MG TAB PO SCH ×2 (09:04→20:32)
[2023-06-13 09:28] LABS: Anion Gap 9 mmol/L (10-20); BUN (Urea Nitrogen) 22 mg/dL (9.8-20.1); Calc. Creatinine Clearance 164 mL/min (70-130); Carbon Dioxide 29 mmol/L (22-29); Chloride 103 mmol/L (98-107); Estimated GFR 111; Potassium 4.2 mmol/L (3.5-5.1); Sodium 137 mmol/L (136-145)
[2023-06-13 09:29] LABS: Calcium 8.5 mg/dL (7.6-10.4); Glucose 94 mg/dL (70-105)
[2023-06-13] MEDS ORDERED: Bacitracin Zinc Ointment 30 gm TUBE ONE (15:38)
[2023-06-13] MEDS ORDERED: Tobramycin Sulfate 1.2 GM VIAL ONE ×2 (15:38→16:52)
[2023-06-13] MEDS ORDERED: Bupivacaine PF 0.5% 30 ML VIAL ONE (15:38)
[2023-06-13] MEDS ORDERED: fentaNYL PF 100 MCG/2 ML SYRINGE ONE (15:55)
[2023-06-13] MEDS ORDERED: HYDROmorphone 0.5 MG/0.5 ML SYRINGE ONE ×2 (15:55→19:47)
[2023-06-13] MEDS ORDERED: Ondansetron PF 4 MG/2 ML Vial ONE ×2 (16:32→17:11)
[2023-06-13] MEDS ORDERED: Lidocaine 1% PF 5 ML VIAL ONE (17:11)
[2023-06-13] MEDS ORDERED: PROPOFOL 200 MG/20 ML VIAL ONE (17:11)
[2023-06-13] MEDS ORDERED: Midazolam HCl 2 mg/2 ml Vial ONE (17:16)
[2023-06-13] MEDS ORDERED: HYDROmorphone 2 MG/ML VIAL SLOW IVP PRN (19:15)
[2023-06-13] MEDS ORDERED: Promethazine HCl 25 MG/ML VIAL IM PRN (19:15)
[2023-06-13] MEDS ORDERED: Ondansetron HCl/PF 4 MG/2 ML Vial IVP PRN (19:15)
[2023-06-13] MEDS: Zolpidem Tartrate 5 MG TAB PO PRN (23:19)
[2023-06-14] MEDS: Ipratropium/Albuterol 3 ML NEB NEB PRN ×2 (01:12→08:05)
[2023-06-14] MEDS: diphenhydrAMINE 25 MG CAP PO PRN ×3 (01:35→22:36)
[2023-06-14] MEDS: HYDROmorphone 10 mg/100 ml CADD IVPB PRN ×2 (04:37→17:33)
[2023-06-14 04:55] LABS: #Basophils 0.1 thou/uL (0.0-0.2); #Eosinphils 1.2 thou/uL (0.0-0.7); #Monocytes 1.5 thou/uL (0.11-0.59); #Neutrophils 9.5 thou/uL (1.40-6.50); %Basophils 0.3 % (0.0-1.0); %Eosinophils 8.3 % (0.0-10.0); %Lymphocytes 16.8 % (21.0-51.0); %Monocytes 10.2 % (0.0-10.0); %Neutrophils 63.3 % (42.0-75.0); Hematocrit 32.4 % (36.0-47.0); Hemoglobin 9.8 g/dL (12.0-16.0); Mean Corpuscular HGB CONC 30.2 g/dL (32.0-36.0); Mean Corpuscular Hemoglobin 27.9 pg (27.0-31.0); Mean Corpuscular Volume 92.3 fl (78.0-98.0); Mean Platelet Volume 9.3 fL (7.4-10.4); Platelet Count 264 10x3/uL (130-400); RBC Distribution Width 19.6 % (11.5-14.5); Red Blood Cell (RBC) Count 3.51 mill/uL (4.20-5.40)
[2023-06-14 05:18] LABS: Anion Gap 10 mmol/L (10-20); BUN (Urea Nitrogen) 18 mg/dL (9.8-20.1); Calc. Creatinine Clearance 149 mL/min (70-130); Calcium 8.6 mg/dL (7.8-10.44); Carbon Dioxide 28 mmol/L (22-29); Chloride 105 mmol/L (98-107); Estimated GFR 109; Glucose 101 mg/dL (70-105); Potassium 4.2 mmol/L (3.5-5.1); Sodium 139 mmol/L (136-145)
[2023-06-14] MEDS: Famotidine 20 MG TAB PO SCH ×2 (09:08→21:55)
[2023-06-14] MEDS: Fluconazole 100 MG TAB PO SCH (09:08)
[2023-06-14] MEDS: Cefepime 2 GM in Sodium Chloride 0.9% 100 ML IVPB SCH ×2 (09:09→21:50)
[2023-06-14] MEDS: Ascorbic Acid 500 mg Chewable Tablet PO SCH ×2 (09:09→21:55)
[2023-06-14] MEDS ORDERED: Polyethylene Glycol 3350 17 GM Packet PO SCH (13:30)
[2023-06-14 14:19] LABS: #Basophils 0.1 thou/uL (0.0-0.2); #Monocytes 1.4 thou/uL (0.11-0.59); #Neutrophils 10.3 thou/uL (1.40-6.50); %Basophils 0.4 % (0.0-1.0); %Eosinophils 6.6 % (0.0-10.0); %Lymphocytes 14.1 % (21.0-51.0); %Monocytes 9.1 % (0.0-10.0); %Neutrophils 69.1 % (42.0-75.0); Hematocrit 31.3 % (36.0-47.0); Hemoglobin 9.4 g/dL (12.0-16.0); Mean Corpuscular Hemoglobin 27.6 pg (27.0-31.0); Mean Corpuscular Volume 92.1 fl (78.0-98.0); Mean Platelet Volume 9.6 fL (7.4-10.4); Platelet Count 273 10x3/uL (130-400); RBC Distribution Width 19.2 % (11.5-14.5)
[2023-06-14] MEDS ORDERED: Bisacodyl 5 MG TAB PO SCH (22:00)
[2023-06-14] MEDS: DAPTOmycin 500 MG in Sodium Chloride 0.9% 100 ML IVPB SCH (22:36)
[2023-06-15 05:47] LABS: #Basophils 0.1 thou/uL (0.0-0.2); #Monocytes 1.4 thou/uL (0.11-0.59); #Neutrophils 8.7 thou/uL (1.40-6.50); %Basophils 0.4 % (0.0-1.0); %Eosinophils 7.8 % (0.0-10.0); %Lymphocytes 14.4 % (21.0-51.0); %Neutrophils 65.8 % (42.0-75.0); Hematocrit 29.1 % (36.0-47.0); Hemoglobin 8.9 g/dL (12.0-16.0); Mean Corpuscular HGB CONC 30.6 g/dL (32.0-36.0); Mean Corpuscular Hemoglobin 27.8 pg (27.0-31.0); Mean Corpuscular Volume 90.9 fl (78.0-98.0); Mean Platelet Volume 9.8 fL (7.4-10.4); Platelet Count 239 10x3/uL (130-400); White Blood Cell (WBC) Count 13.2 10x3/uL (4.8-10.8)
[2023-06-15 06:18] LABS: Anion Gap 11 mmol/L (10-20); BUN (Urea Nitrogen) 14 mg/dL (9.8-20.1); Calc. Creatinine Clearance 135 mL/min (70-130); Calcium 8.4 mg/dL (7.8-10.44); Carbon Dioxide 27 mmol/L (22-29); Chloride 102 mmol/L (98-107); Estimated GFR 106; Glucose 169 mg/dL (70-105); Potassium 3.5 mmol/L (3.5-5.1); Sodium 136 mmol/L (136-145)
[2023-06-15] MEDS: Cefepime 2 GM in Sodium Chloride 0.9% 100 ML IVPB SCH ×2 (10:07→21:30)
[2023-06-15] MEDS: HYDROmorphone 10 mg/100 ml CADD IVPB PRN (10:08)
[2023-06-15] MEDS: Ascorbic Acid 500 mg Chewable Tablet PO SCH ×2 (10:15→20:18)
[2023-06-15] MEDS: Bisacodyl 5 MG TAB PO SCH ×2 (10:15→20:18)
[2023-06-15] MEDS: Fluconazole 100 MG TAB PO SCH (10:15)
[2023-06-15] MEDS: Famotidine 20 MG TAB PO SCH ×2 (10:15→20:18)
[2023-06-15] MEDS: diphenhydrAMINE 25 MG CAP PO PRN ×2 (10:18→20:17)
[2023-06-15] MEDS ORDERED: Fleet Saline Enema 133 ML BOT PR PRN (12:01)
[2023-06-15] MEDS: Pramipexole Di-HCl 0.25 MG TAB PO PRN (20:18)
[2023-06-15] MEDS: DAPTOmycin 500 MG in Sodium Chloride 0.9% 100 ML IVPB SCH (22:26)
[2023-06-16 05:20] LABS: #Basophils 0.1 thou/uL (0.0-0.2); #Eosinphils 1.1 thou/uL (0.0-0.7); #Monocytes 1.6 thou/uL (0.11-0.59); #Neutrophils 7.9 thou/uL (1.40-6.50); %Basophils 0.4 % (0.0-1.0); %Eosinophils 8.6 % (0.0-10.0); %Lymphocytes 17.4 % (21.0-51.0); %Monocytes 12.2 % (0.0-10.0); %Neutrophils 60.7 % (42.0-75.0); Hematocrit 30.8 % (36.0-47.0); Hemoglobin 9.3 g/dL (12.0-16.0); Mean Corpuscular HGB CONC 30.2 g/dL (32.0-36.0); Mean Corpuscular Hemoglobin 27.3 pg (27.0-31.0); Mean Corpuscular Volume 90.3 fl (78.0-98.0); Mean Platelet Volume 10.3 fL (7.4-10.4); Platelet Count 248 10x3/uL (130-400); RBC Distribution Width 18.8 % (11.5-14.5); Red Blood Cell (RBC) Count 3.41 mill/uL (4.20-5.40); White Blood Cell (WBC) Count 13.1 10x3/uL (4.8-10.8)
[2023-06-16] MEDS: HYDROmorphone 10 mg/100 ml CADD IVPB PRN ×2 (05:27→18:31)
[2023-06-16 05:49] LABS: Anion Gap 10 mmol/L (10-20); BUN (Urea Nitrogen) 10 mg/dL (9.8-20.1); Calc. Creatinine Clearance 189 mL/min (70-130); Calcium 8.8 mg/dL (7.8-10.44); Carbon Dioxide 28 mmol/L (22-29); Chloride 103 mmol/L (98-107); Estimated GFR 115; Glucose 97 mg/dL (70-105); Potassium 3.8 mmol/L (3.5-5.1); Sodium 137 mmol/L (136-145)
[2023-06-16] MEDS: Ascorbic Acid 500 mg Chewable Tablet PO SCH ×2 (08:43→21:04)
[2023-06-16] MEDS: Bisacodyl 5 MG TAB PO SCH ×2 (08:43→21:04)
[2023-06-16] MEDS: Cefepime 2 GM in Sodium Chloride 0.9% 100 ML IVPB SCH ×2 (08:43→21:03)
[2023-06-16] MEDS: Famotidine 20 MG TAB PO SCH ×2 (08:43→21:04)
[2023-06-16] MEDS: Fluconazole 100 MG TAB PO SCH (08:43)
[2023-06-16] MEDS: DAPTOmycin 500 MG in Sodium Chloride 0.9% 100 ML IVPB SCH (21:03)
[2023-06-16] MEDS: diphenhydrAMINE 25 MG CAP PO PRN (21:04)
[2023-06-16] MEDS: Pramipexole Di-HCl 0.25 MG TAB PO PRN (21:04)
[2023-06-16] MEDS: Ipratropium/Albuterol 3 ML NEB NEB PRN (23:17)
[2023-06-17 05:02] LABS: #Eosinphils 1.4 thou/uL (0.0-0.7); #Monocytes 1.6 thou/uL (0.11-0.59); #Neutrophils 8.1 thou/uL (1.40-6.50); %Basophils 0.3 % (0.0-1.0); %Eosinophils 10.5 % (0.0-10.0); %Lymphocytes 18.1 % (21.0-51.0); %Monocytes 11.6 % (0.0-10.0); Hematocrit 30.5 % (36.0-47.0); Hemoglobin 9.2 g/dL (12.0-16.0); Mean Corpuscular HGB CONC 30.2 g/dL (32.0-36.0); Mean Corpuscular Hemoglobin 27.5 pg (27.0-31.0); Mean Platelet Volume 10.4 fL (7.4-10.4); Platelet Count 238 10x3/uL (130-400); RBC Distribution Width 18.5 % (11.5-14.5); Red Blood Cell (RBC) Count 3.35 mill/uL (4.20-5.40); White Blood Cell (WBC) Count 13.6 10x3/uL (4.8-10.8)
[2023-06-17 05:21] LABS: Anion Gap 10 mmol/L (10-20); BUN (Urea Nitrogen) 14 mg/dL (9.8-20.1); Calc. Creatinine Clearance 131 mL/min (70-130); Calcium 8.8 mg/dL (7.8-10.44); Carbon Dioxide 31 mmol/L (22-29); Chloride 100 mmol/L (98-107); Estimated GFR 110; Glucose 123 mg/dL (70-105); Potassium 3.9 mmol/L (3.5-5.1); Sodium 137 mmol/L (136-145)
[2023-06-17] MEDS: diphenhydrAMINE 25 MG CAP PO PRN ×2 (05:43→21:31)
[2023-06-17] MEDS: HYDROmorphone 10 mg/100 ml CADD IVPB PRN (06:36)
[2023-06-17] MEDS: Cefepime 2 GM in Sodium Chloride 0.9% 100 ML IVPB SCH ×2 (09:35→21:31)
[2023-06-17] MEDS: Bisacodyl 5 MG TAB PO SCH ×2 (09:36→21:32)
[2023-06-17] MEDS: Ascorbic Acid 500 mg Chewable Tablet PO SCH ×2 (09:36→21:32)
[2023-06-17] MEDS: Cyclobenzaprine 10 MG TAB PO PRN (09:36)
[2023-06-17] MEDS: Fluconazole 100 MG TAB PO SCH (09:36)
[2023-06-17] MEDS: Famotidine 20 MG TAB PO SCH ×2 (09:36→21:32)
[2023-06-17] MEDS: Bisacodyl 10 MG SUPP PR PRN (14:11)
[2023-06-17] MEDS: Pramipexole Di-HCl 0.25 MG TAB PO PRN (21:40)
[2023-06-17] MEDS: Ipratropium/Albuterol 3 ML NEB NEB PRN (21:47)
[2023-06-17] MEDS: DAPTOmycin 500 MG in Sodium Chloride 0.9% 100 ML IVPB SCH (22:40)
[2023-06-18] MEDS: HYDROmorphone 10 mg/100 ml CADD IVPB PRN ×2 (00:33→13:41)
[2023-06-18 05:30] LABS: #Basophils 0.1 thou/uL (0.0-0.2); #Eosinphils 1.6 thou/uL (0.0-0.7); #Monocytes 1.4 thou/uL (0.11-0.59); #Neutrophils 8.5 thou/uL (1.40-6.50); %Basophils 0.4 % (0.0-1.0); %Eosinophils 11.6 % (0.0-10.0); %Lymphocytes 13.9 % (21.0-51.0); %Monocytes 10.2 % (0.0-10.0); %Neutrophils 63.4 % (42.0-75.0); Hematocrit 30.5 % (36.0-47.0); Hemoglobin 9.2 g/dL (12.0-16.0); Mean Corpuscular HGB CONC 30.2 g/dL (32.0-36.0); Mean Corpuscular Hemoglobin 27.2 pg (27.0-31.0); Mean Corpuscular Volume 90.2 fl (78.0-98.0); Platelet Count 221 10x3/uL (130-400); RBC Distribution Width 18.4 % (11.5-14.5); Red Blood Cell (RBC) Count 3.38 mill/uL (4.20-5.40); White Blood Cell (WBC) Count 13.4 10x3/uL (4.8-10.8)
[2023-06-18 05:49] LABS: Anion Gap 12 mmol/L (10-20); BUN (Urea Nitrogen) 14 mg/dL (9.8-20.1); Calc. Creatinine Clearance 134 mL/min (70-130); Calcium 9.1 mg/dL (7.8-10.44); Carbon Dioxide 28 mmol/L (22-29); Chloride 102 mmol/L (98-107); Estimated GFR 111; Glucose 109 mg/dL (70-105); Potassium 4.1 mmol/L (3.5-5.1); Sodium 138 mmol/L (136-145)
[2023-06-18] MEDS: diphenhydrAMINE 25 MG CAP PO PRN ×2 (09:23→20:42)
[2023-06-18] MEDS: Famotidine 20 MG TAB PO SCH ×2 (09:23→20:42)
[2023-06-18] MEDS: Bisacodyl 5 MG TAB PO SCH ×2 (09:23→20:45)
[2023-06-18] MEDS: Fluconazole 100 MG TAB PO SCH (09:23)
[2023-06-18] MEDS: Ascorbic Acid 500 mg Chewable Tablet PO SCH ×2 (09:23→20:42)
[2023-06-18] MEDS: Cefepime 2 GM in Sodium Chloride 0.9% 100 ML IVPB SCH ×2 (09:23→20:45)
[2023-06-18] MEDS ORDERED: Fentanyl 250 MCG/5 ML VIAL ONE (12:00)
[2023-06-18] MEDS ORDERED: PROPOFOL 200 MG/20 ML VIAL ONE (12:15)
[2023-06-18] MEDS ORDERED: fentaNYL 50 mcg/mL 1 mL Vial ONE (12:51)
[2023-06-18] MEDS ORDERED: HYDROmorphone 0.5 MG/0.5 ML SYRINGE ONE (13:01)
[2023-06-18] MEDS: Cyclobenzaprine 10 MG TAB PO PRN (18:00)
[2023-06-18] MEDS: Pramipexole Di-HCl 0.25 MG TAB PO PRN (20:44)
[2023-06-18] MEDS: DAPTOmycin 500 MG in Sodium Chloride 0.9% 100 ML IVPB SCH (23:01)
[2023-06-19] MEDS: HYDROmorphone 10 mg/100 ml CADD IVPB PRN ×2 (03:12→23:32)
[2023-06-19] MEDS: diphenhydrAMINE 25 MG CAP PO PRN ×2 (03:12→21:35)
[2023-06-19] MEDS: Ipratropium/Albuterol 3 ML NEB NEB PRN ×2 (03:50→19:59)
[2023-06-19 06:14] LABS: #Basophils 0.1 thou/uL (0.0-0.2); #Eosinphils 1.5 thou/uL (0.0-0.7); #Monocytes 1.3 thou/uL (0.11-0.59); #Neutrophils 6.5 thou/uL (1.40-6.50); %Basophils 0.4 % (0.0-1.0); %Eosinophils 12.9 % (0.0-10.0); %Lymphocytes 19.3 % (21.0-51.0); %Monocytes 11.3 % (0.0-10.0); %Neutrophils 55.7 % (42.0-75.0); Hematocrit 29.3 % (36.0-47.0); Hemoglobin 8.7 g/dL (12.0-16.0); Mean Corpuscular HGB CONC 29.7 g/dL (32.0-36.0); Mean Corpuscular Hemoglobin 26.9 pg (27.0-31.0); Mean Corpuscular Volume 90.4 fl (78.0-98.0); Mean Platelet Volume 11.3 fL (7.4-10.4); Platelet Count 219 10x3/uL (130-400); RBC Distribution Width 18.4 % (11.5-14.5); Red Blood Cell (RBC) Count 3.24 mill/uL (4.20-5.40); White Blood Cell (WBC) Count 11.7 10x3/uL (4.8-10.8)
[2023-06-19 06:39] LABS: Anion Gap 11 mmol/L (10-20); BUN (Urea Nitrogen) 14 mg/dL (9.8-20.1); Calc. Creatinine Clearance 139 mL/min (70-130); Calcium 8.9 mg/dL (7.8-10.44); Carbon Dioxide 32 mmol/L (22-29); Chloride 98 mmol/L (98-107); Estimated GFR 112; Glucose 94 mg/dL (70-105); Potassium 4.1 mmol/L (3.5-5.1); Sodium 137 mmol/L (136-145)
[2023-06-19] MEDS: Fluconazole 100 MG TAB PO SCH (09:08)
[2023-06-19] MEDS: Ascorbic Acid 500 mg Chewable Tablet PO SCH ×2 (09:08→21:35)
[2023-06-19] MEDS: Cefepime 2 GM in Sodium Chloride 0.9% 100 ML IVPB SCH ×2 (09:08→21:34)
[2023-06-19] MEDS: Bisacodyl 5 MG TAB PO SCH ×2 (09:08→21:38)
[2023-06-19] MEDS: Famotidine 20 MG TAB PO SCH ×2 (09:08→21:35)
[2023-06-19 11:45] LABS: Reference Lab Name LABCORP
[2023-06-19 11:46] LABS: Ref Lab Test Ordered YEAST I.D. & SUSEP
[2023-06-19] MEDS: Bisacodyl 10 MG SUPP PR PRN (12:06)
[2023-06-19 13:17] VITALS: BMI 23.8
[2023-06-19] MEDS: Pramipexole Di-HCl 0.25 MG TAB PO PRN (21:35)
[2023-06-19] MEDS: Cyclobenzaprine 10 MG TAB PO PRN (21:38)
[2023-06-19] MEDS: DAPTOmycin 500 MG in Sodium Chloride 0.9% 100 ML IVPB SCH (21:47)
[2023-06-20] MEDS: Cefepime 2 GM in Sodium Chloride 0.9% 100 ML IVPB SCH ×2 (09:55→21:08)
[2023-06-20] MEDS: Ascorbic Acid 500 mg Chewable Tablet PO SCH ×2 (09:55→21:08)
[2023-06-20] MEDS: Bisacodyl 5 MG TAB PO SCH ×2 (09:55→21:09)
[2023-06-20] MEDS: Famotidine 20 MG TAB PO SCH ×2 (09:55→21:08)
[2023-06-20] MEDS: Fluconazole 100 MG TAB PO SCH (09:55)
[2023-06-20] MEDS: Cyclobenzaprine 10 MG TAB PO PRN ×2 (09:58→21:11)
[2023-06-20] MEDS: Bisacodyl 10 MG SUPP PR PRN (17:18)
[2023-06-20] MEDS ORDERED: Ipratropium/Albuterol 3 ML NEB ONE (19:49)
[2023-06-20] MEDS: Ipratropium/Albuterol 3 ML NEB NEB PRN (20:31)
[2023-06-20] MEDS: Pramipexole Di-HCl 0.25 MG TAB PO PRN (21:11)
[2023-06-20] MEDS: diphenhydrAMINE 25 MG CAP PO PRN (21:11)
[2023-06-20] MEDS: DAPTOmycin 500 MG in Sodium Chloride 0.9% 100 ML IVPB SCH (21:58)
[2023-06-20] MEDS: HYDROmorphone 10 mg/100 ml CADD IVPB PRN (22:08)
[2023-06-21] MEDS: Bisacodyl 10 MG SUPP PR PRN (01:46)
[2023-06-21] MEDS: Fluconazole 100 MG TAB PO SCH (09:59)
[2023-06-21] MEDS: Cefepime 2 GM in Sodium Chloride 0.9% 100 ML IVPB SCH ×2 (09:59→21:25)
[2023-06-21] MEDS: Ascorbic Acid 500 mg Chewable Tablet PO SCH ×2 (10:00→21:25)
[2023-06-21] MEDS: Famotidine 20 MG TAB PO SCH ×2 (10:00→21:25)
[2023-06-21] MEDS: Bisacodyl 5 MG TAB PO SCH ×2 (10:01→21:25)
[2023-06-21] MEDS: diphenhydrAMINE 25 MG CAP PO PRN ×2 (11:08→21:26)
[2023-06-21] MEDS: HYDROmorphone 10 mg/100 ml CADD IVPB PRN (15:27)
[2023-06-21] MEDS: Ipratropium/Albuterol 3 ML NEB NEB PRN ×2 (15:35→23:20)
[2023-06-21] MEDS: Cyclobenzaprine 10 MG TAB PO PRN (21:26)
[2023-06-21] MEDS: Pramipexole Di-HCl 0.25 MG TAB PO PRN (21:26)
[2023-06-21] MEDS: DAPTOmycin 500 MG in Sodium Chloride 0.9% 100 ML IVPB SCH (21:26)
[2023-06-22] MEDS: Ascorbic Acid 500 mg Chewable Tablet PO SCH ×2 (09:03→21:27)
[2023-06-22] MEDS: Cefepime 2 GM in Sodium Chloride 0.9% 100 ML IVPB SCH ×2 (09:03→21:28)
[2023-06-22] MEDS: Fluconazole 100 MG TAB PO SCH (09:03)
[2023-06-22] MEDS: Famotidine 20 MG TAB PO SCH ×2 (09:03→21:27)
[2023-06-22] MEDS: Bisacodyl 5 MG TAB PO SCH ×2 (09:03→21:27)
[2023-06-22] MEDS: HYDROmorphone 10 mg/100 ml CADD IVPB PRN (09:04)
[2023-06-22] MEDS: Ipratropium/Albuterol 3 ML NEB NEB PRN ×2 (10:40→22:39)
[2023-06-22] MEDS: Cyclobenzaprine 10 MG TAB PO PRN (12:36)
[2023-06-22] MEDS ORDERED: HYDROmorphone 10 mg/100 ml CADD IVPB PRN (17:03)
[2023-06-22] MEDS: Acetaminophen 500 MG TAB PO SCH ×2 (17:37→23:36)
[2023-06-22] MEDS: Pramipexole Di-HCl 0.25 MG TAB PO PRN (21:27)
[2023-06-22] MEDS: DAPTOmycin 500 MG in Sodium Chloride 0.9% 100 ML IVPB SCH (22:55)
[2023-06-22] MEDS: diphenhydrAMINE 25 MG CAP PO PRN (22:55)
[2023-06-22] MEDS: HYDROmorphone/PF 10 MG in Sodium Chloride 0.9% 99 ML IVPB PRN (23:36)
[2023-06-23] MEDS: Acetaminophen 500 MG TAB PO SCH ×4 (06:48→23:14)
[2023-06-23] MEDS: Ipratropium/Albuterol 3 ML NEB NEB PRN ×4 (07:03→18:26)
[2023-06-23] MEDS: Famotidine 20 MG TAB PO SCH ×2 (08:57→20:34)
[2023-06-23] MEDS: Fluconazole 100 MG TAB PO SCH (08:57)
[2023-06-23] MEDS: Cefepime 2 GM in Sodium Chloride 0.9% 100 ML IVPB SCH ×2 (08:58→20:34)
[2023-06-23] MEDS: Ascorbic Acid 500 mg Chewable Tablet PO SCH ×2 (08:58→20:34)
[2023-06-23] MEDS: Bisacodyl 5 MG TAB PO SCH ×2 (08:58→20:34)
[2023-06-23] MEDS ORDERED: Melatonin 3 MG TAB PO PRN (09:00)
[2023-06-23] MEDS ORDERED: Activase 2 MG VIAL CATH SCH (09:30)
[2023-06-23] MEDS: Cyclobenzaprine 10 MG TAB PO PRN ×2 (10:05→20:37)
[2023-06-23] MEDS ORDERED: DAPTOmycin 500 MG in Sodium Chloride 0.9% 50 ML IVPB SCH (10:30)
[2023-06-23] MEDS: tiZANidine HCl 4 MG TAB PO SCH ×3 (11:35→23:14)
[2023-06-23 11:38] LABS: #Monocytes 0.7 thou/uL (0.11-0.59); #Neutrophils 5.4 thou/uL (1.40-6.50); %Basophils 0.4 % (0.0-1.0); %Eosinophils 20.8 % (0.0-10.0); %Monocytes 7.6 % (0.0-10.0); %Neutrophils 55.8 % (42.0-75.0); Hematocrit 28.2 % (36.0-47.0); Hemoglobin 8.6 g/dL (12.0-16.0); Mean Corpuscular HGB CONC 30.5 g/dL (32.0-36.0); Mean Corpuscular Hemoglobin 26.9 pg (27.0-31.0); Mean Corpuscular Volume 88.1 fl (78.0-98.0); Mean Platelet Volume 11.1 fL (7.4-10.4); Platelet Count 220 10x3/uL (130-400); RBC Distribution Width 18.3 % (11.5-14.5); White Blood Cell (WBC) Count 9.7 10x3/uL (4.8-10.8)
[2023-06-23 12:02] LABS: Anion Gap 11 mmol/L (10-20); BUN (Urea Nitrogen) 10 mg/dL (9.8-20.1); Calc. Creatinine Clearance 131 mL/min (70-130); Calcium 9.2 mg/dL (7.8-10.44); Carbon Dioxide 28 mmol/L (22-29); Chloride 100 mmol/L (98-107); Estimated GFR 110; Glucose 131 mg/dL (70-105); Potassium 4.2 mmol/L (3.5-5.1); Sodium 135 mmol/L (136-145)
[2023-06-23] MEDS: HYDROmorphone/PF 10 MG in Sodium Chloride 0.9% 99 ML IVPB PRN (17:39)
[2023-06-23] MEDS: Budesonide 0.5 MG/2 ML NEB NEB SCH (18:24)
[2023-06-23] MEDS: DAPTOmycin 500 MG in Sodium Chloride 0.9% 50 ML IVPB SCH (20:34)
[2023-06-23] MEDS: diphenhydrAMINE 25 MG CAP PO PRN (20:37)
[2023-06-23] MEDS: Nystatin Powder 15 GM BOT TOP SCH (20:37)
[2023-06-24 04:53] LABS: Anion Gap 12 mmol/L (10-20); BUN (Urea Nitrogen) 12 mg/dL (9.8-20.1); Calc. Creatinine Clearance 122 mL/min (70-130); Calcium 9.2 mg/dL (7.8-10.44); Carbon Dioxide 26 mmol/L (22-29); Chloride 102 mmol/L (98-107); Estimated GFR 108; Glucose 144 mg/dL (70-105); Potassium 4.1 mmol/L (3.5-5.1); Sodium 136 mmol/L (136-145)
[2023-06-24] MEDS: tiZANidine HCl 4 MG TAB PO SCH ×4 (05:13→22:32)
[2023-06-24] MEDS: Acetaminophen 500 MG TAB PO SCH ×4 (05:13→22:32)
[2023-06-24 06:21] LABS: Hematocrit 27.3 % (36.0-47.0); Hemoglobin 8.2 g/dL (12.0-16.0); Manual Diff?? YES; Mean Corpuscular Hemoglobin 26.3 pg (27.0-31.0); Mean Corpuscular Volume 87.5 fl (78.0-98.0); Mean Platelet Volume 10.7 fL (7.4-10.4); Platelet Count 202 10x3/uL (130-400); RBC Distribution Width 18.2 % (11.5-14.5); Red Blood Cell (RBC) Count 3.12 mill/uL (4.20-5.40); White Blood Cell (WBC) Count 8.4 10x3/uL (4.8-10.8)
[2023-06-24 06:23] LABS: Delete Auto Diff?? YES
[2023-06-24 06:50] LABS: Band 5 % (5-11); CellaVision Operator ID LAB.GE; Eosinophils 20 % (0-10); Hypochromia SLIGHT = 6-15 cells HPF (0-5); Large Platelets 1.8 % (0-5); Lymphocytes 20 % (21-51); Macrocytosis SLIGHT = 6-15 cells HPF (0-5); Monocytes 4 % (0-10); Neutrophil 51 % (42-75); Platelet Adequacy Comment Platelets Normal; Polychromasia SLIGHT = 2-3 cells HPF (0-2); Total Cell Count 113
[2023-06-24] MEDS: HYDROmorphone/PF 10 MG in Sodium Chloride 0.9% 99 ML IVPB PRN (07:53)
[2023-06-24] MEDS: Ipratropium/Albuterol 3 ML NEB NEB PRN ×2 (08:18→23:14)
[2023-06-24] MEDS: Budesonide 0.5 MG/2 ML NEB NEB SCH ×2 (08:20→19:20)
[2023-06-24] MEDS: Bisacodyl 5 MG TAB PO SCH ×2 (09:57→21:21)
[2023-06-24] MEDS: Famotidine 20 MG TAB PO SCH ×2 (09:57→21:21)
[2023-06-24] MEDS: Cefepime 2 GM in Sodium Chloride 0.9% 100 ML IVPB SCH ×2 (09:57→21:20)
[2023-06-24] MEDS: Ascorbic Acid 500 mg Chewable Tablet PO SCH ×2 (09:57→21:20)
[2023-06-24] MEDS: Fluconazole 100 MG TAB PO SCH (09:57)
[2023-06-24] MEDS: Nystatin Powder 15 GM BOT TOP SCH ×2 (09:58→21:22)
[2023-06-24] MEDS ORDERED: HYDROmorphone 2 MG TAB PO PRN ×2 (15:27→15:28)
[2023-06-24] MEDS ORDERED: fentaNYL 50 mcg/mL 1 mL Vial ONE ×2 (16:07→17:30)
[2023-06-24] MEDS ORDERED: Fentanyl 100 MCG/2 ML VIAL SLOW IVP PRN (16:15)
[2023-06-24] MEDS ORDERED: Ketamine 50 MG/ML (10ML VIAL) ONE (17:17)
[2023-06-24] MEDS ORDERED: fentaNYL PF 100 MCG/2 ML SYRINGE ONE (17:17)
[2023-06-24] MEDS ORDERED: Dexmedetomidine 200 MCG/2 ML VIAL ONE (17:17)
[2023-06-24] MEDS ORDERED: Lidocaine 2% 6 ML (Jelly) SYR ONE (17:18)
[2023-06-24] MEDS ORDERED: Tobramycin Sulfate 1.2 GM VIAL ONE ×2 (17:21)
[2023-06-24] MEDS ORDERED: Bacitracin Zinc Ointment 30 gm TUBE ONE ×2 (17:21→18:55)
[2023-06-24] MEDS ORDERED: Bupivacaine PF 0.5% 30 ML VIAL ONE (17:21)
[2023-06-24] MEDS ORDERED: Ondansetron PF 4 MG/2 ML Vial ONE (17:53)
[2023-06-24] MEDS ORDERED: Lidocaine 1% PF 5 ML VIAL ONE (17:53)
[2023-06-24] MEDS ORDERED: Metoclopramide HCl 10 MG/2 ML VIAL ONE (17:53)
[2023-06-24] MEDS ORDERED: PROPOFOL 200 MG/20 ML VIAL ONE (17:53)
[2023-06-24] MEDS ORDERED: Vasopressin 20 UNITS/ML VIAL ONE (17:55)
[2023-06-24] MEDS ORDERED: Famotidine/PF 20 mg/2ml Vial ONE (17:55)
[2023-06-24] MEDS ORDERED: Phenylephrine 10 MG/ML VIAL ONE (17:55)
[2023-06-24] MEDS ORDERED: HYDROmorphone 2 MG/ML VIAL ONE (18:32)
[2023-06-24] MEDS ORDERED: Mineral Oil Sterile 10 ML VIAL ONE ×2 (18:55→19:27)
[2023-06-24] MEDS ORDERED: HYDROmorphone 0.5 MG/0.5 ML SYRINGE ONE ×2 (20:28→20:47)
[2023-06-24] MEDS ORDERED: Promethazine HCl 25 MG/ML VIAL IM PRN (20:30)
[2023-06-24] MEDS ORDERED: Ondansetron HCl/PF 4 MG/2 ML Vial IVP PRN (20:30)
[2023-06-24] MEDS ORDERED: HYDROmorphone 2 MG/ML VIAL SLOW IVP PRN (20:30)
[2023-06-24] MEDS: DAPTOmycin 500 MG in Sodium Chloride 0.9% 50 ML IVPB SCH (21:20)
[2023-06-24] MEDS: Amitriptyline HCl 25 MG TAB PO SCH (21:21)
[2023-06-24] MEDS: fentaNYL 50 mcg/mL 1 mL Vial SLOW IVP PRN (21:59)
[2023-06-24] MEDS: Pramipexole Di-HCl 0.25 MG TAB PO PRN (22:01)
[2023-06-24] MEDS: diphenhydrAMINE 25 MG CAP PO PRN (22:06)
[2023-06-24] MEDS: HYDROmorphone 2 MG TAB PO PRN (22:32)
[2023-06-25] MEDS: Cyclobenzaprine 10 MG TAB PO PRN ×2 (03:08→19:15)
[2023-06-25] MEDS: HYDROmorphone 2 MG TAB PO PRN ×4 (03:10→16:25)
[2023-06-25] MEDS: fentaNYL 50 mcg/mL 1 mL Vial SLOW IVP PRN ×4 (03:12→17:46)
[2023-06-25] MEDS: Pramipexole Di-HCl 0.25 MG TAB PO PRN (03:15)
[2023-06-25 04:00] LABS: #Eosinphils 2.1 thou/uL (0.0-0.7); #Monocytes 0.8 thou/uL (0.11-0.59); #Neutrophils 3.8 thou/uL (1.40-6.50); %Basophils 0.3 % (0.0-1.0); %Eosinophils 24.3 % (0.0-10.0); %Lymphocytes 22.6 % (21.0-51.0); %Monocytes 8.7 % (0.0-10.0); %Neutrophils 43.9 % (42.0-75.0); Hemoglobin 8.7 g/dL (12.0-16.0); Mean Corpuscular Hemoglobin 26.4 pg (27.0-31.0); Mean Corpuscular Volume 88.1 fl (78.0-98.0); Mean Platelet Volume 10.9 fL (7.4-10.4); Platelet Count 280 10x3/uL (130-400); RBC Distribution Width 18.3 % (11.5-14.5); Red Blood Cell (RBC) Count 3.29 mill/uL (4.20-5.40); White Blood Cell (WBC) Count 8.7 10x3/uL (4.8-10.8)
[2023-06-25 04:22] LABS: Anion Gap 12 mmol/L (10-20); BUN (Urea Nitrogen) 10 mg/dL (9.8-20.1); Calc. Creatinine Clearance 122 mL/min (70-130); Calcium 9.2 mg/dL (7.8-10.44); Carbon Dioxide 27 mmol/L (22-29); Chloride 104 mmol/L (98-107); Estimated GFR 108; Glucose 111 mg/dL (70-105); Potassium 4.1 mmol/L (3.5-5.1); Sodium 139 mmol/L (136-145)
[2023-06-25] MEDS: Acetaminophen 500 MG TAB PO SCH ×3 (05:25→17:46)
[2023-06-25] MEDS: tiZANidine HCl 4 MG TAB PO SCH ×3 (05:25→17:46)
[2023-06-25] MEDS: Budesonide 0.5 MG/2 ML NEB NEB SCH ×2 (07:18→19:00)
[2023-06-25] MEDS: Ipratropium/Albuterol 3 ML NEB NEB PRN ×3 (07:22→18:53)
[2023-06-25] MEDS: Fluconazole 100 MG TAB PO SCH (08:12)
[2023-06-25] MEDS: Famotidine 20 MG TAB PO SCH ×2 (08:12→21:05)
[2023-06-25] MEDS: Ascorbic Acid 500 mg Chewable Tablet PO SCH ×2 (08:13→21:04)
[2023-06-25] MEDS: Bisacodyl 5 MG TAB PO SCH ×2 (08:13→21:05)
[2023-06-25] MEDS: Nystatin Powder 15 GM BOT TOP SCH ×2 (08:13→21:07)
[2023-06-25] MEDS: Cefepime 2 GM in Sodium Chloride 0.9% 100 ML IVPB SCH ×2 (08:14→21:06)
[2023-06-25] MEDS ORDERED: Milk Of Magnesia 30 ML UDCUP PO SCH (13:30)
[2023-06-25] MEDS: Promethazine HCl 25 MG/ML VIAL IM PRN (13:52)
[2023-06-25] MEDS: Meperidine HCl/PF 25 MG/ML VIAL IM PRN ×2 (13:52→21:10)
[2023-06-25] MEDS ORDERED: Pregabalin 50 MG CAP PO SCH (20:00)
[2023-06-25] MEDS: cloNIDine 0.1 MG TAB PO SCH (21:04)
[2023-06-25] MEDS: oxyCODONE ER 10 MG TAB PO SCH (21:04)
[2023-06-25] MEDS: Amitriptyline HCl 25 MG TAB PO SCH (21:05)
[2023-06-25] MEDS: diphenhydrAMINE 25 MG CAP PO PRN (21:10)
[2023-06-25] MEDS: DAPTOmycin 500 MG in Sodium Chloride 0.9% 50 ML IVPB SCH (22:44)
[2023-06-26] MEDS: tiZANidine HCl 4 MG TAB PO SCH ×4 (00:48→17:17)
[2023-06-26] MEDS: Acetaminophen 500 MG TAB PO SCH ×4 (00:48→17:17)
[2023-06-26] MEDS: HYDROmorphone 2 MG TAB PO PRN ×4 (00:49→18:40)
[2023-06-26 04:50] LABS: Hematocrit 27.7 % (36.0-47.0); Hemoglobin 8.3 g/dL (12.0-16.0); Manual Diff?? YES; Mean Corpuscular Hemoglobin 26.3 pg (27.0-31.0); Mean Corpuscular Volume 87.9 fl (78.0-98.0); Mean Platelet Volume 10.1 fL (7.4-10.4); Platelet Count 300 10x3/uL (130-400); RBC Distribution Width 18.6 % (11.5-14.5); Red Blood Cell (RBC) Count 3.15 mill/uL (4.20-5.40)
[2023-06-26 04:54] LABS: Delete Auto Diff?? YES
[2023-06-26 05:09] LABS: Anion Gap 12 mmol/L (10-20); BUN (Urea Nitrogen) 12 mg/dL (9.8-20.1); Calc. Creatinine Clearance 129 mL/min (70-130); Calcium 9.4 mg/dL (7.8-10.44); Carbon Dioxide 28 mmol/L (22-29); Chloride 104 mmol/L (98-107); Estimated GFR 110; Glucose 105 mg/dL (70-105); Sodium 140 mmol/L (136-145)
[2023-06-26 05:15] LABS: CellaVision Operator ID LAB.CLH1; Eosinophils 31 % (0-10); Hypochromia SLIGHT = 6-15 cells HPF (0-5); Large Platelets 7.8 % (0-5); Lymphocytes 25 % (21-51); Macrocytosis SLIGHT = 6-15 cells HPF (0-5); Monocytes 8 % (0-10); Neutrophil 34 % (42-75); Platelet Adequacy Comment Platelets Normal; Polychromasia SLIGHT = 2-3 cells HPF (0-2); Reactive Lymphocytes 1 % (0-10); Total Cell Count 116
[2023-06-26] MEDS: Budesonide 0.5 MG/2 ML NEB NEB SCH ×2 (06:06→19:43)
[2023-06-26] MEDS: Ipratropium/Albuterol 3 ML NEB NEB PRN ×2 (06:08→19:44)
[2023-06-26] MEDS: Bisacodyl 5 MG TAB PO SCH ×2 (09:13→20:38)
[2023-06-26] MEDS: Fluconazole 100 MG TAB PO SCH (09:13)
[2023-06-26] MEDS: Cefepime 2 GM in Sodium Chloride 0.9% 100 ML IVPB SCH ×2 (09:13→20:38)
[2023-06-26] MEDS: Ascorbic Acid 500 mg Chewable Tablet PO SCH ×2 (09:13→20:38)
[2023-06-26] MEDS: Pregabalin 50 MG CAP PO SCH ×2 (09:13→20:38)
[2023-06-26] MEDS: cloNIDine 0.1 MG TAB PO SCH ×2 (09:14→20:41)
[2023-06-26] MEDS: Famotidine 20 MG TAB PO SCH ×2 (09:14→20:38)
[2023-06-26] MEDS: oxyCODONE ER 10 MG TAB PO SCH ×2 (09:14→20:39)
[2023-06-26] MEDS: Nystatin Powder 15 GM BOT TOP SCH ×2 (09:21→20:45)
[2023-06-26] MEDS ORDERED: Fleet Saline Enema 133 ML BOT PR SCH (14:30)
[2023-06-26] MEDS: fentaNYL 50 mcg/mL 1 mL Vial SLOW IVP PRN (17:49)
[2023-06-26] MEDS: Milk Of Magnesia 30 ML UDCUP PO SCH (20:37)
[2023-06-26] MEDS: Amitriptyline HCl 25 MG TAB PO SCH (20:38)
[2023-06-26] MEDS: Cyclobenzaprine 10 MG TAB PO PRN (20:39)
[2023-06-26] MEDS: Pramipexole Di-HCl 0.25 MG TAB PO PRN (20:50)
[2023-06-26] MEDS: DAPTOmycin 500 MG in Sodium Chloride 0.9% 50 ML IVPB SCH (21:56)
[2023-06-27] MEDS: Acetaminophen 500 MG TAB PO SCH ×5 (00:14→23:44)
[2023-06-27] MEDS: HYDROmorphone 2 MG TAB PO PRN ×4 (00:14→17:19)
[2023-06-27] MEDS: tiZANidine HCl 4 MG TAB PO SCH ×5 (00:15→23:44)
[2023-06-27 06:07] LABS: Hematocrit 28.4 % (36.0-47.0); Hemoglobin 8.5 g/dL (12.0-16.0); Manual Diff?? YES; Mean Corpuscular HGB CONC 29.9 g/dL (32.0-36.0); Mean Corpuscular Hemoglobin 26.2 pg (27.0-31.0); Mean Corpuscular Volume 87.7 fl (78.0-98.0); Mean Platelet Volume 10.5 fL (7.4-10.4); Platelet Count 365 10x3/uL (130-400); RBC Distribution Width 18.6 % (11.5-14.5); Red Blood Cell (RBC) Count 3.24 mill/uL (4.20-5.40); White Blood Cell (WBC) Count 9.5 10x3/uL (4.8-10.8)
[2023-06-27 06:14] LABS: Delete Auto Diff?? YES
[2023-06-27 06:30] LABS: Anion Gap 9 mmol/L (10-20); BUN (Urea Nitrogen) 16 mg/dL (9.8-20.1); Calc. Creatinine Clearance 111 mL/min (70-130); Carbon Dioxide 29 mmol/L (22-29); Chloride 101 mmol/L (98-107); Estimated GFR 106; Glucose 107 mg/dL (70-105); Potassium 4.2 mmol/L (3.5-5.1); Sodium 135 mmol/L (136-145)
[2023-06-27 07:00] LABS: Band 6 % (5-11); Eosinophils 30 % (0-10); Hypochromia SLIGHT = 6-15 cells HPF (0-5); Large Platelets 3.8 % (0-5); Lymphocytes 18 % (21-51); Monocytes 6 % (0-10); Neutrophil 41 % (42-75); Platelet Adequacy Comment Platelets Normal; Polychromasia SLIGHT = 2-3 cells HPF (0-2); Total Cell Count 105
[2023-06-27] MEDS: Budesonide 0.5 MG/2 ML NEB NEB SCH ×2 (07:06→19:04)
[2023-06-27] MEDS: Ipratropium/Albuterol 3 ML NEB NEB PRN ×2 (07:07→19:06)
[2023-06-27] MEDS: Milk Of Magnesia 30 ML UDCUP PO SCH ×2 (09:14→20:48)
[2023-06-27] MEDS: Cefepime 2 GM in Sodium Chloride 0.9% 100 ML IVPB SCH ×2 (09:15→21:21)
[2023-06-27] MEDS: Fluconazole 100 MG TAB PO SCH (09:15)
[2023-06-27] MEDS: Famotidine 20 MG TAB PO SCH ×2 (09:16→20:50)
[2023-06-27] MEDS: oxyCODONE ER 10 MG TAB PO SCH (09:16)
[2023-06-27] MEDS: Ascorbic Acid 500 mg Chewable Tablet PO SCH ×2 (09:16→20:50)
[2023-06-27] MEDS: Pregabalin 50 MG CAP PO SCH ×2 (09:16→20:48)
[2023-06-27] MEDS: cloNIDine 0.1 MG TAB PO SCH ×2 (09:17→20:49)
[2023-06-27] MEDS: Bisacodyl 5 MG TAB PO SCH ×2 (09:17→20:50)
[2023-06-27] MEDS: Nystatin Powder 15 GM BOT TOP SCH ×2 (09:17→21:21)
[2023-06-27] MEDS: Meperidine HCl/PF 25 MG/ML VIAL IM PRN (14:42)
[2023-06-27] MEDS: Amitriptyline HCl 25 MG TAB PO SCH (20:48)
[2023-06-27] MEDS: oxyCODONE ER 20 MG TAB PO SCH (20:49)
[2023-06-27] MEDS: DAPTOmycin 500 MG in Sodium Chloride 0.9% 50 ML IVPB SCH (22:21)
[2023-06-28] MEDS: tiZANidine HCl 4 MG TAB PO SCH ×4 (06:15→23:57)
[2023-06-28] MEDS: Acetaminophen 500 MG TAB PO SCH ×4 (06:15→23:57)
[2023-06-28] MEDS: Promethazine HCl 25 MG/ML VIAL IM PRN (06:57)
[2023-06-28] MEDS: Meperidine HCl/PF 25 MG/ML VIAL IM PRN (06:58)
[2023-06-28] MEDS: Budesonide 0.5 MG/2 ML NEB NEB SCH ×2 (07:38→19:06)
[2023-06-28] MEDS: Cefepime 2 GM in Sodium Chloride 0.9% 100 ML IVPB SCH ×2 (08:45→22:19)
[2023-06-28] MEDS: oxyCODONE ER 20 MG TAB PO SCH ×2 (08:45→20:19)
[2023-06-28] MEDS: Pregabalin 50 MG CAP PO SCH ×2 (08:45→20:19)
[2023-06-28] MEDS: cloNIDine 0.1 MG TAB PO SCH ×2 (08:46→20:19)
[2023-06-28] MEDS: Bisacodyl 5 MG TAB PO SCH ×2 (08:46→20:19)
[2023-06-28] MEDS: Fluconazole 100 MG TAB PO SCH (08:46)
[2023-06-28] MEDS: Ascorbic Acid 500 mg Chewable Tablet PO SCH ×2 (08:46→20:19)
[2023-06-28] MEDS: Famotidine 20 MG TAB PO SCH ×2 (08:46→20:19)
[2023-06-28] MEDS: Nystatin Powder 15 GM BOT TOP SCH ×2 (08:47→20:18)
[2023-06-28] MEDS: Milk Of Magnesia 30 ML UDCUP PO SCH ×2 (08:50→20:22)
[2023-06-28] MEDS: HYDROmorphone 2 MG TAB PO PRN ×3 (10:48→22:18)
[2023-06-28] MEDS: Cyclobenzaprine 10 MG TAB PO PRN ×2 (13:37→23:57)
[2023-06-28] MEDS: Meperidine HCl/PF 25 MG/ML VIAL SLOW IVP PRN (13:40)
[2023-06-28] MEDS: Amitriptyline HCl 25 MG TAB PO SCH (20:19)
[2023-06-28] MEDS: diphenhydrAMINE 25 MG CAP PO PRN (20:25)
[2023-06-28] MEDS: Pramipexole Di-HCl 0.25 MG TAB PO PRN (20:25)
[2023-06-28] MEDS: DAPTOmycin 500 MG in Sodium Chloride 0.9% 50 ML IVPB SCH (21:27)
[2023-06-29] MEDS: Meperidine HCl/PF 25 MG/ML VIAL IM PRN (00:21)
[2023-06-29] MEDS: Ipratropium/Albuterol 3 ML NEB NEB PRN ×2 (00:54→06:55)
[2023-06-29] MEDS: Acetaminophen 500 MG TAB PO SCH ×4 (05:44→23:47)
[2023-06-29] MEDS: tiZANidine HCl 4 MG TAB PO SCH ×4 (05:47→23:46)
[2023-06-29 06:19] LABS: #Basophils 0.1 thou/uL (0.0-0.2); #Eosinphils 2.7 thou/uL (0.0-0.7); #Monocytes 1.1 thou/uL (0.11-0.59); #Neutrophils 4.1 thou/uL (1.40-6.50); %Basophils 0.5 % (0.0-1.0); %Eosinophils 25.9 % (0.0-10.0); %Lymphocytes 23.2 % (21.0-51.0); %Monocytes 10.1 % (0.0-10.0); %Neutrophils 39.1 % (42.0-75.0); Hematocrit 28.6 % (36.0-47.0); Hemoglobin 8.6 g/dL (12.0-16.0); Manual Diff?? YES; Mean Corpuscular HGB CONC 30.1 g/dL (32.0-36.0); Mean Corpuscular Hemoglobin 26.4 pg (27.0-31.0); Mean Corpuscular Volume 87.7 fl (78.0-98.0); Mean Platelet Volume 10.4 fL (7.4-10.4); Platelet Count 373 10x3/uL (130-400); RBC Distribution Width 18.5 % (11.5-14.5); Red Blood Cell (RBC) Count 3.26 mill/uL (4.20-5.40); White Blood Cell (WBC) Count 10.4 10x3/uL (4.8-10.8)
[2023-06-29 06:43] LABS: Anion Gap 11 mmol/L (10-20); BUN (Urea Nitrogen) 13 mg/dL (9.8-20.1); Calc. Creatinine Clearance 114 mL/min (70-130); Calcium 9.4 mg/dL (7.8-10.44); Carbon Dioxide 29 mmol/L (22-29); Chloride 101 mmol/L (98-107); Estimated GFR 106; Glucose 108 mg/dL (70-105); Potassium 4.1 mmol/L (3.5-5.1); Sodium 137 mmol/L (136-145)
[2023-06-29] MEDS: Budesonide 0.5 MG/2 ML NEB NEB SCH ×2 (06:53→19:16)
[2023-06-29] MEDS: Fluconazole 100 MG TAB PO SCH (08:36)
[2023-06-29] MEDS: Famotidine 20 MG TAB PO SCH ×2 (08:36→21:07)
[2023-06-29] MEDS: Ascorbic Acid 500 mg Chewable Tablet PO SCH ×2 (08:36→21:06)
[2023-06-29] MEDS: Cyclobenzaprine 10 MG TAB PO PRN ×2 (08:36→21:07)
[2023-06-29] MEDS: Bisacodyl 5 MG TAB PO SCH ×2 (08:36→21:06)
[2023-06-29] MEDS: cloNIDine 0.1 MG TAB PO SCH ×2 (08:37→21:06)
[2023-06-29] MEDS: Pregabalin 50 MG CAP PO SCH ×2 (08:37→21:07)
[2023-06-29] MEDS: oxyCODONE ER 20 MG TAB PO SCH ×2 (08:37→21:06)
[2023-06-29] MEDS: Nystatin Powder 15 GM BOT TOP SCH ×2 (08:41→21:45)
[2023-06-29] MEDS: Milk Of Magnesia 30 ML UDCUP PO SCH ×3 (08:41→21:04)
[2023-06-29] MEDS: Cefepime 2 GM in Sodium Chloride 0.9% 100 ML IVPB SCH ×2 (08:42→21:04)
[2023-06-29 11:15] LABS: Band 1 % (5-11); Eosinophils 25 % (0-10); Lymphocytes 25 % (21-51); Monocytes 9 % (0-10); Neutrophil 40 % (42-75)
[2023-06-29 11:16] LABS: Platelet Adequacy Comment Platelets Normal; RBC Morphology Within Normal Limits
[2023-06-29] MEDS: Meperidine HCl/PF 25 MG/ML VIAL SLOW IVP PRN (13:06)
[2023-06-29] MEDS: HYDROmorphone 2 MG TAB PO PRN ×2 (18:16→23:46)
[2023-06-29] MEDS: DAPTOmycin 500 MG in Sodium Chloride 0.9% 50 ML IVPB SCH (21:05)
[2023-06-29] MEDS: Amitriptyline HCl 25 MG TAB PO SCH (21:07)
[2023-06-29] MEDS: diphenhydrAMINE 25 MG CAP PO PRN (21:07)
[2023-06-29] MEDS: Pramipexole Di-HCl 0.25 MG TAB PO PRN (21:08)
[2023-06-30] MEDS: tiZANidine HCl 4 MG TAB PO SCH ×3 (04:55→17:49)
[2023-06-30] MEDS: Acetaminophen 500 MG TAB PO SCH ×3 (04:55→17:49)
[2023-06-30 05:14] LABS: Hematocrit 30.2 % (36.0-47.0); Hemoglobin 8.9 g/dL (12.0-16.0); Manual Diff?? YES; Mean Corpuscular HGB CONC 29.5 g/dL (32.0-36.0); Mean Corpuscular Hemoglobin 26.3 pg (27.0-31.0); Mean Corpuscular Volume 89.1 fl (78.0-98.0); Platelet Count 391 10x3/uL (130-400); RBC Distribution Width 18.6 % (11.5-14.5); Red Blood Cell (RBC) Count 3.39 mill/uL (4.20-5.40); White Blood Cell (WBC) Count 12.4 10x3/uL (4.8-10.8)
[2023-06-30 05:22] LABS: Delete Auto Diff?? YES
[2023-06-30 05:45] LABS: Anisocytosis SLIGHT = 6-15 cells HPF (0-5); CellaVision Operator ID lab.abc; Eosinophils 30 % (0-10); Lymphocytes 17 % (21-51); Monocytes 4 % (0-10); Neutrophil 49 % (42-75); Platelet Adequacy Comment Platelets Normal; Polychromasia SLIGHT = 2-3 cells HPF (0-2); Total Cell Count 100
[2023-06-30 05:47] LABS: Anion Gap 11 mmol/L (10-20); BUN (Urea Nitrogen) 11 mg/dL (9.8-20.1); Calc. Creatinine Clearance 124 mL/min (70-130); Calcium 9.5 mg/dL (7.8-10.44); Carbon Dioxide 28 mmol/L (22-29); Chloride 102 mmol/L (98-107); Estimated GFR 109; Glucose 101 mg/dL (70-105); Potassium 4.2 mmol/L (3.5-5.1); Sodium 137 mmol/L (136-145)
[2023-06-30] MEDS: Ascorbic Acid 500 mg Chewable Tablet PO SCH ×2 (08:23→20:06)
[2023-06-30] MEDS: cloNIDine 0.1 MG TAB PO SCH ×2 (08:23→20:07)
[2023-06-30] MEDS: Fluconazole 100 MG TAB PO SCH (08:23)
[2023-06-30] MEDS: Pregabalin 50 MG CAP PO SCH ×2 (08:24→20:08)
[2023-06-30] MEDS: Bisacodyl 5 MG TAB PO SCH ×2 (08:24→20:07)
[2023-06-30] MEDS: Famotidine 20 MG TAB PO SCH ×2 (08:24→20:06)
[2023-06-30] MEDS: oxyCODONE ER 20 MG TAB PO SCH ×2 (08:25→21:55)
[2023-06-30] MEDS: Milk Of Magnesia 30 ML UDCUP PO SCH ×2 (08:25→20:08)
[2023-06-30] MEDS: Nystatin Powder 15 GM BOT TOP SCH ×2 (08:25→22:00)
[2023-06-30] MEDS: Budesonide 0.5 MG/2 ML NEB NEB SCH ×2 (08:39→19:05)
[2023-06-30] MEDS: Ipratropium/Albuterol 3 ML NEB NEB PRN (08:40)
[2023-06-30] MEDS: Cefepime 2 GM in Sodium Chloride 0.9% 100 ML IVPB SCH ×2 (09:42→21:56)
[2023-06-30] MEDS: Meperidine HCl/PF 25 MG/ML VIAL SLOW IVP PRN (09:43)
[2023-06-30] MEDS: HYDROmorphone 2 MG TAB PO PRN ×2 (14:49→20:02)
[2023-06-30] MEDS: Amitriptyline HCl 25 MG TAB PO SCH (20:06)
[2023-06-30] MEDS: DAPTOmycin 500 MG in Sodium Chloride 0.9% 50 ML IVPB SCH (21:56)
[2023-06-30] MEDS: diphenhydrAMINE 25 MG CAP PO PRN (21:58)
[2023-07-01] MEDS: Acetaminophen 500 MG TAB PO SCH ×4 (00:08→17:41)
[2023-07-01] MEDS: tiZANidine HCl 4 MG TAB PO SCH ×4 (00:10→17:41)
[2023-07-01] MEDS: HYDROmorphone 2 MG TAB PO PRN ×5 (00:20→19:11)
[2023-07-01 04:56] LABS: Hematocrit 29.7 % (36.0-47.0); Hemoglobin 8.9 g/dL (12.0-16.0); Manual Diff?? YES; Mean Corpuscular Hemoglobin 26.4 pg (27.0-31.0); Mean Corpuscular Volume 88.1 fl (78.0-98.0); Mean Platelet Volume 9.7 fL (7.4-10.4); Platelet Count 358 10x3/uL (130-400); RBC Distribution Width 18.6 % (11.5-14.5); Red Blood Cell (RBC) Count 3.37 mill/uL (4.20-5.40)
[2023-07-01 05:10] LABS: Delete Auto Diff?? YES
[2023-07-01 05:20] LABS: Anion Gap 10 mmol/L (10-20); BUN (Urea Nitrogen) 10 mg/dL (9.8-20.1); CK (CPK) 37 U/L (29-168); Calc. Creatinine Clearance 112 mL/min (70-130); Calcium 9.4 mg/dL (7.8-10.44); Carbon Dioxide 31 mmol/L (22-29); Chloride 101 mmol/L (98-107); Estimated GFR 106; Glucose 114 mg/dL (70-105); Potassium 4.2 mmol/L (3.5-5.1); Sodium 138 mmol/L (136-145)
[2023-07-01 06:37] LABS: Band 9 % (5-11); Eosinophils 30 % (0-10); Hypochromia SLIGHT = 6-15 cells HPF (0-5); Lymphocytes 12 % (21-51); Monocytes 5 % (0-10); Neutrophil 43 % (42-75); Platelet Adequacy Comment Platelets Normal; Polychromasia SLIGHT = 2-3 cells HPF (0-2); Reactive Lymphocytes 1 % (0-10); Total Cell Count 100
[2023-07-01] MEDS: oxyCODONE ER 20 MG TAB PO SCH ×2 (09:31→20:30)
[2023-07-01] MEDS: Fluconazole 100 MG TAB PO SCH (09:34)
[2023-07-01] MEDS: Milk Of Magnesia 30 ML UDCUP PO SCH ×3 (09:34→20:38)
[2023-07-01] MEDS: cloNIDine 0.1 MG TAB PO SCH ×2 (09:35→20:30)
[2023-07-01] MEDS: Pregabalin 50 MG CAP PO SCH ×2 (09:35→20:28)
[2023-07-01] MEDS: Nystatin Powder 15 GM BOT TOP SCH ×2 (09:35→20:33)
[2023-07-01] MEDS: Famotidine 20 MG TAB PO SCH ×2 (09:35→20:30)
[2023-07-01] MEDS: Ascorbic Acid 500 mg Chewable Tablet PO SCH ×2 (09:35→20:30)
[2023-07-01] MEDS: Bisacodyl 5 MG TAB PO SCH ×2 (09:35→20:30)
[2023-07-01] MEDS: Cefepime 2 GM in Sodium Chloride 0.9% 100 ML IVPB SCH ×2 (09:36→21:03)
[2023-07-01] MEDS: Budesonide 0.5 MG/2 ML NEB NEB SCH ×2 (10:35→18:45)
[2023-07-01] MEDS: Ipratropium/Albuterol 3 ML NEB NEB PRN (10:59)
[2023-07-01] MEDS ORDERED: DAPTOmycin 500 MG in Sodium Chloride 0.9% 50 ML IVPB SCH ×2 (20:00→22:00)
[2023-07-01] MEDS: Amitriptyline HCl 25 MG TAB PO SCH (20:29)
[2023-07-01 20:30] VITALS: TEMP 98.3
[2023-07-01] MEDS: Pramipexole Di-HCl 0.25 MG TAB PO PRN (20:37)
[2023-07-01 20:38] VITALS: BP 103/68
[2023-07-01] MEDS: diphenhydrAMINE 25 MG CAP PO PRN (21:37)
[2023-07-02] MEDS ORDERED: DAPTOmycin 500 MG in Sodium Chloride 0.9% 50 ML IVPB SCH (22:00)
== END 2023-07-01 22:25 | DRG 906 ==
LOC: SDC 19:17 → SURG A 19:18 → OBSVTOIN 23:11 → SDC 23:11
PROVIDERS: ADMIT Orthopaedic Surgery Hand Surgery; ATTEND Family Medicine
PROC: 0PBQ0ZZ Excision of Left Metacarpal, Open Approach (ICD-10-PCS; principal; 2023-06-14)
DX: T86.822 Skin graft (allograft) (autograft) infection (principal); L89.154 Pressure ulcer of sacral region, stage 4; J96.10 Chronic respiratory failure, unspecified whether with hypoxia or hypercapnia; L02.413 Cutaneous abscess of right upper limb; M86.8X8 Other osteomyelitis, other site; G25.81 Restless legs syndrome; B96.5 Pseudomonas (aeruginosa) (mallei) (pseudomallei) as the cause of diseases classified elsewhere; I25.10 Atherosclerotic heart disease of native coronary artery without angina pectoris; K59.00 Constipation, unspecified; M62.838 Other muscle spasm; L89.159 Pressure ulcer of sacral region, unspecified stage; Z88.0 Allergy status to penicillin; Z88.1 Allergy status to other antibiotic agents; Z88.8 Allergy status to other drugs, medicaments and biological substances; Z88.5 Allergy status to narcotic agent; Z79.899 Other long term (current) drug therapy; I25.2 Old myocardial infarction; G89.29 Other chronic pain; Z87.891 Personal history of nicotine dependence; Z90.49 Acquired absence of other specified parts of digestive tract; Z90.89 Acquired absence of other organs; Z98.890 Other specified postprocedural states; Y83.8 Other surgical procedures as the cause of abnormal reaction of the patient, or of later complication, without mention of misadventure at the time of the procedure
CPT/HCPCS: 36415; 36569; 80048; 80053; 81001; 82550; 83605; 85025; 86850; 86900; 86901; 87070; 87077; 87086; 87186; 87205; 88307; 88311; 88312; 94640; 97139; A6448; C1713; C1751; C9363-KX-JC; J0692; J0878; J1100; J1170; J2175; J2250; J2370; J2405; J2550; J2704; J2765; J2997; J3010; J3260; J3370; J3490; J7620; J7626; Q4104; S0020; S0028

== ENCOUNTER 2023-07-17 12:27 | Inpatient (IN) | payer BC, MEDICARE ==
[2023-07-17 13:06] LABS: Hematocrit 29.7 % (36.0-47.0); Hemoglobin 9.1 g/dL (12.0-16.0); Manual Diff?? YES; Mean Corpuscular HGB CONC 30.6 g/dL (32.0-36.0); Mean Corpuscular Hemoglobin 26.3 pg (27.0-31.0); Mean Corpuscular Volume 85.8 fl (78.0-98.0); Mean Platelet Volume 10.7 fL (7.4-10.4); RBC Distribution Width 18.9 % (11.5-14.5); Red Blood Cell (RBC) Count 3.46 mill/uL (4.20-5.40); White Blood Cell (WBC) Count 30.6 10x3/uL (4.8-10.8)
[2023-07-17 13:09] LABS: Delete Auto Diff?? YES; Platelet Count 284 10x3/uL (130-400)
[2023-07-17 13:28] LABS: Anisocytosis SLIGHT = 6-15 cells HPF (0-5); Band 2 % (5-11); CellaVision Operator ID LAB.KB; Eosinophils 71 % (0-10); Hypochromia SLIGHT = 6-15 cells HPF (0-5); Lymphocytes 6 % (21-51); Monocytes 4 % (0-10); Neutrophil 18 % (42-75); Platelet Adequacy Comment Platelets Normal; Polychromasia SLIGHT = 2-3 cells HPF (0-2); Total Cell Count 103
[2023-07-17 13:35] LABS: ALT (SGPT) 15 U/L (8-55); AST (SGOT) 22 U/L (5-34); Albumin 2.6 g/dL (3.5-5.0); Alkaline Phosphatase 103 U/L (40-110); Anion Gap 10 mmol/L (10-20); BUN (Urea Nitrogen) 21 mg/dL (9.8-20.1); Bilirubin, Total 0.2 mg/dL (0.2-1.2); Calc. Creatinine Clearance 121 mL/min (70-130); Calcium 10.3 mg/dL (7.8-10.44); Carbon Dioxide 32 mmol/L (22-29); Chloride 103 mmol/L (98-107); Estimated GFR 107; Globulin 3.8 g/dL (2.4-3.5); Glucose 81 mg/dL (70-105); Potassium 4.9 mmol/L (3.5-5.1); Protein, Total 6.4 g/dL (6.0-8.3); Sodium 140 mmol/L (136-145)
[2023-07-17] MEDS ORDERED: fentaNYL 50 mcg/mL 1 mL Vial ONE ×5 (14:02→17:44)
[2023-07-17 14:13] LABS: Bacteria/HPF None Seen HPF (None Seen); Bilirubin Negative (Negative); Blood, Urine Negative (Negative); Clarity Clear (Clear); Glucose, Urine (Dipstick) Normal (Negative); Ketone, Urine Negative (Negative); Leukocyte 250 Leu/uL (Negative); Nitrite Negative (Negative); Protein, Urine (Dipstick) 50 mg/dL (Neg-Trace); Specific Gravity, Urine 1.021 (1.002-1.036); Squamous Epithelial None Seen HPF (0-3); Urobilinogen Normal mg/dL (Less than 2); pH, Urine 6.5 (5.0-9.0)
[2023-07-17] MEDS ORDERED: Acetaminophen 325 MG/10.15 ML UDCUP ONE (14:21)
[2023-07-17] MEDS ORDERED: Norepinephrine 4 MG/4 ML VIAL ONE (14:28)
[2023-07-17] MEDS ORDERED: CEFAZOLIN 2 GM VIAL ONE (14:33)
[2023-07-17] MEDS ORDERED: Sodium Chloride 0.9% 100 ML ONE (14:34)
[2023-07-17] MEDS ORDERED: Thrombin 5000 UNITS/5 ML VIAL ONE (14:42)
[2023-07-17] MEDS ORDERED: Bacitracin Zinc Ointment 30 gm TUBE ONE (14:42)
[2023-07-17] MEDS ORDERED: Mineral Oil Sterile 10 ML VIAL ONE (14:42)
[2023-07-17] MEDS ORDERED: Tobramycin Sulfate 1.2 GM VIAL ONE (14:42)
[2023-07-17] MEDS ORDERED: Bupivacaine PF 0.5% 30 ML VIAL ONE (14:42)
[2023-07-17] MEDS ORDERED: Lidocaine 1% PF 5 ML VIAL ONE ×2 (14:51→17:25)
[2023-07-17] MEDS ORDERED: PROPOFOL 200 MG/20 ML VIAL ONE (14:51)
[2023-07-17] MEDS ORDERED: TETANUS, DIPHTHERIA TOX,ADULT (TDVAX) 0.5 ML VIAL IM ONE (14:55)
[2023-07-17] MEDS ORDERED: fentaNYL 50 mcg/mL 1 mL Vial SLOW IVP PRN (14:55)
[2023-07-17] MEDS ORDERED: Ondansetron PF 4 MG/2 ML Vial IVP PRN (14:55)
[2023-07-17] MEDS ORDERED: HYDROcodone/Acetaminophen 5/325 mg Tablet PO PRN (14:55)
[2023-07-17] MEDS ORDERED: Promethazine HCl 25 MG/ML VIAL IM PRN (14:55)
[2023-07-17 14:58] LABS: RBC/HPF 0-3 HPF (0-3)
[2023-07-17] MEDS ORDERED: Communication Order-Pharmacy FS SCH (15:00)
[2023-07-17] MEDS ORDERED: Meropenem 1 GM in Sodium Chloride 0.9% 100 ML IVPB SCH (15:30)
[2023-07-17] MEDS ORDERED: Midazolam HCl 2 mg/2 ml Vial ONE (16:52)
[2023-07-17] MEDS ORDERED: Naloxone HCl 0.4 mg/ml Vial IV PRN (17:15)
[2023-07-17] MEDS: Aspirin 81 mg Enteric Coated Tablet PO SCH (21:41)
[2023-07-17] MEDS ORDERED: Meropenem 500 MG in Sodium Chloride 0.9% 100 ML IVPB SCH (22:00)
[2023-07-17] MEDS: Ipratropium/Albuterol 3 ML NEB NEB PRN (23:25)
[2023-07-18 00:01] LABS: ALT (SGPT) 20 U/L (8-55); AST (SGOT) 30 U/L (5-34); Albumin 2.4 g/dL (3.5-5.0); Alkaline Phosphatase 105 U/L (40-110); Anion Gap 13 mmol/L (10-20); BUN (Urea Nitrogen) 18 mg/dL (9.8-20.1); Bilirubin, Total 0.2 mg/dL (0.2-1.2); Calc. Creatinine Clearance 105 mL/min (70-130); Calcium 10.2 mg/dL (7.8-10.44); Carbon Dioxide 29 mmol/L (22-29); Chloride 103 mmol/L (98-107); Estimated GFR 104; Globulin 3.9 g/dL (2.4-3.5); Glucose 99 mg/dL (70-105); Potassium 4.9 mmol/L (3.5-5.1); Protein, Total 6.3 g/dL (6.0-8.3); Sodium 140 mmol/L (136-145)
[2023-07-18] MEDS ORDERED: Bisacodyl 5 MG TAB PO PRN (00:11)
[2023-07-18] MEDS: Meropenem 1 GM in Sodium Chloride 0.9% 100 ML IVPB SCH ×3 (01:41→17:50)
[2023-07-18] MEDS: Ipratropium Bromide 2.5 ml Neb NEB SCH ×4 (02:08→18:35)
[2023-07-18 06:33] LABS: Hematocrit 27.8 % (36.0-47.0); Hemoglobin 8.5 g/dL (12.0-16.0); Manual Diff?? YES; Mean Corpuscular HGB CONC 30.6 g/dL (32.0-36.0); Mean Corpuscular Hemoglobin 26.3 pg (27.0-31.0); Mean Corpuscular Volume 86.1 fl (78.0-98.0); Mean Platelet Volume 10.5 fL (7.4-10.4); Platelet Count 289 10x3/uL (130-400); RBC Distribution Width 18.9 % (11.5-14.5); Red Blood Cell (RBC) Count 3.23 mill/uL (4.20-5.40); White Blood Cell (WBC) Count 28.8 10x3/uL (4.8-10.8)
[2023-07-18 06:36] LABS: Delete Auto Diff?? YES
[2023-07-18 07:00] LABS: INR-International Normal Ratio 1.2; PTT 32.1 sec (22.9-36.1); Prothrombin Time 15.3 sec (12.0-14.7)
[2023-07-18 08:40] LABS: CellaVision Operator ID LAB.GE; Eosinophils 69 % (0-10); Hypochromia SLIGHT = 6-15 cells HPF (0-5); Large Platelets 1.5 % (0-5); Lymphocytes 11 % (21-51); Macrocytosis SLIGHT = 6-15 cells HPF (0-5); Monocytes 3 % (0-10); Neutrophil 18 % (42-75); Platelet Adequacy Comment Platelets Normal; Polychromasia SLIGHT = 2-3 cells HPF (0-2); Total Cell Count 137
[2023-07-18] MEDS: Furosemide 20 MG TAB PO SCH (08:51)
[2023-07-18] MEDS: Bisacodyl 5 MG TAB PO SCH ×2 (08:51→21:01)
[2023-07-18] MEDS: Polyethylene Glycol 3350 17 GM Packet PO SCH (08:51)
[2023-07-18] MEDS: Aspirin 81 mg Enteric Coated Tablet PO SCH ×2 (08:51→21:00)
[2023-07-18] MEDS ORDERED: Iopamidol 370 76% 100 ML VIAL ONE (10:22)
[2023-07-18] MEDS: Simethicone Chewable 80 MG TAB PO PRN (10:58)
[2023-07-18 16:08] VITALS: BMI 23.9
[2023-07-18] MEDS ORDERED: Fluconazole 100 MG TAB PO SCH (16:15)
[2023-07-18] MEDS: Fentanyl CADD 100 ML IVPB SCH (17:49)
[2023-07-18] MEDS: DAPTOmycin 400 MG in Sodium Chloride 0.9% 50 ML IVPB SCH (18:28)
[2023-07-18] MEDS: Amitriptyline HCl 25 MG TAB PO SCH (21:00)
[2023-07-18] MEDS: Pramipexole Di-HCl 0.25 MG TAB PO SCH (21:01)
[2023-07-19] MEDS: Meropenem 1 GM in Sodium Chloride 0.9% 100 ML IVPB SCH ×3 (00:30→18:14)
[2023-07-19] MEDS: Ipratropium Bromide 2.5 ml Neb NEB SCH ×4 (00:56→18:37)
[2023-07-19 04:10] LABS: #Basophils 0.1 thou/uL (0.0-0.2); #Eosinphils 13.1 thou/uL (0.0-0.7); #Monocytes 1.5 thou/uL (0.11-0.59); #Neutrophils 4.4 thou/uL (1.40-6.50); %Basophils 0.5 % (0.0-1.0); %Eosinophils 59.7 % (0.0-10.0); %Lymphocytes 12.7 % (21.0-51.0); %Monocytes 6.7 % (0.0-10.0); %Neutrophils 20.2 % (42.0-75.0); Hematocrit 26.8 % (36.0-47.0); Hemoglobin 8.3 g/dL (12.0-16.0); Manual Diff?? YES; Mean Corpuscular Hemoglobin 25.9 pg (27.0-31.0); Mean Corpuscular Volume 83.8 fl (78.0-98.0); Mean Platelet Volume 10.9 fL (7.4-10.4); Platelet Count 292 10x3/uL (130-400); RBC Distribution Width 18.6 % (11.5-14.5); White Blood Cell (WBC) Count 21.9 10x3/uL (4.8-10.8)
[2023-07-19 04:53] LABS: Anisocytosis SLIGHT = 6-15 cells HPF (0-5); Burr Cells SLIGHT = 2-5 cells HPF (0-1); CellaVision Operator ID lab.sh2; Eosinophils 53 % (0-10); Hypochromia MODERATE=16-30 cells HPF (0-5); Large Platelets 2.2 % (0-5); Lymphocytes 8 % (21-51); Macrocytosis SLIGHT = 6-15 cells HPF (0-5); Monocytes 5 % (0-10); Neutrophil 34 % (42-75); Platelet Adequacy Comment Platelets Normal; Poikilocytosis SLIGHT = 6-15 cells HPF (0-5); Polychromasia SLIGHT = 2-3 cells HPF (0-2); Smudge Cells 60.2 %; Total Cell Count 93; Vacuoles SLIGHT
[2023-07-19] MEDS: Bisacodyl 5 MG TAB PO SCH ×2 (08:28→20:09)
[2023-07-19] MEDS: Polyethylene Glycol 3350 17 GM Packet PO SCH (08:28)
[2023-07-19] MEDS: Furosemide 20 MG TAB PO SCH (08:36)
[2023-07-19] MEDS: Fluconazole 100 MG TAB PO SCH (08:36)
[2023-07-19] MEDS: Aspirin 81 mg Enteric Coated Tablet PO SCH (08:37)
[2023-07-19] MEDS ORDERED: ALPRAZolam 0.5 MG TAB PO PRN (11:23)
[2023-07-19] MEDS: Fentanyl CADD 100 ML IVPB SCH (13:26)
[2023-07-19] MEDS: Ondansetron PF 4 MG/2 ML Vial IVP PRN ×2 (13:30→20:05)
[2023-07-19] MEDS: Loratadine 10 MG TAB PO PRN (13:35)
[2023-07-19] MEDS: DAPTOmycin 400 MG in Sodium Chloride 0.9% 50 ML IVPB SCH (16:47)
[2023-07-19] MEDS: HYDROmorphone 2 MG TAB PO PRN (16:47)
[2023-07-19] MEDS ORDERED: Lorazepam 0.5 MG TAB PO PRN (18:34)
[2023-07-19] MEDS: Pramipexole Di-HCl 0.25 MG TAB PO SCH (20:05)
[2023-07-19] MEDS: Amitriptyline HCl 25 MG TAB PO SCH (20:05)
[2023-07-19] MEDS: Ascorbic Acid 500 mg Chewable Tablet PO SCH (20:06)
[2023-07-19] MEDS: oxyCODONE 5 MG TAB PO SCH (20:08)
[2023-07-19] MEDS: Pregabalin 50 MG CAP PO SCH (20:10)
[2023-07-19] MEDS: Lorazepam 1 MG TAB PO PRN (20:10)
[2023-07-19] MEDS ORDERED: Pregabalin 50 MG CAP PO SCH (21:00)
[2023-07-20] MEDS: Meropenem 1 GM in Sodium Chloride 0.9% 100 ML IVPB SCH ×3 (00:50→17:12)
[2023-07-20] MEDS: Ipratropium Bromide 2.5 ml Neb NEB SCH ×5 (01:18→22:16)
[2023-07-20 04:59] LABS: Hematocrit 26.9 % (36.0-47.0); Hemoglobin 8.2 g/dL (12.0-16.0); Manual Diff?? YES; Mean Corpuscular HGB CONC 30.5 g/dL (32.0-36.0); Mean Corpuscular Hemoglobin 25.5 pg (27.0-31.0); Mean Corpuscular Volume 83.8 fl (78.0-98.0); Mean Platelet Volume 11.1 fL (7.4-10.4); Platelet Count 314 10x3/uL (130-400); RBC Distribution Width 18.5 % (11.5-14.5); Red Blood Cell (RBC) Count 3.21 mill/uL (4.20-5.40); White Blood Cell (WBC) Count 19.1 10x3/uL (4.8-10.8)
[2023-07-20 05:00] LABS: Delete Auto Diff?? YES
[2023-07-20 05:33] LABS: Band 2 % (5-11); CellaVision Operator ID LAB.CLH1; Eosinophils 65 % (0-10); Hypochromia SLIGHT = 6-15 cells HPF (0-5); Large Platelets 2.8 % (0-5); Lymphocytes 9 % (21-51); Macrocytosis SLIGHT = 6-15 cells HPF (0-5); Monocytes 5 % (0-10); Neutrophil 19 % (42-75); Platelet Adequacy Comment Platelets Normal; Polychromasia SLIGHT = 2-3 cells HPF (0-2); Total Cell Count 107
[2023-07-20] MEDS: HYDROmorphone 2 MG TAB PO PRN ×3 (06:28→23:09)
[2023-07-20] MEDS: Lorazepam 1 MG TAB PO PRN (06:28)
[2023-07-20] MEDS: Bisacodyl 5 MG TAB PO SCH ×2 (09:49→21:13)
[2023-07-20] MEDS: Polyethylene Glycol 3350 17 GM Packet PO SCH (09:50)
[2023-07-20] MEDS: Aspirin 81 mg Enteric Coated Tablet PO SCH (09:59)
[2023-07-20] MEDS: Fluconazole 100 MG TAB PO SCH (09:59)
[2023-07-20] MEDS: Ascorbic Acid 500 mg Chewable Tablet PO SCH ×2 (09:59→21:13)
[2023-07-20] MEDS: Pregabalin 50 MG CAP PO SCH ×3 (09:59→21:12)
[2023-07-20] MEDS: oxyCODONE 5 MG TAB PO SCH ×2 (10:00→21:11)
[2023-07-20] MEDS: Furosemide 20 MG TAB PO SCH (10:01)
[2023-07-20] MEDS: DAPTOmycin 400 MG in Sodium Chloride 0.9% 50 ML IVPB SCH (14:32)
[2023-07-20] MEDS: Amitriptyline HCl 25 MG TAB PO SCH (21:12)
[2023-07-20] MEDS: Pramipexole Di-HCl 0.25 MG TAB PO SCH (21:13)
[2023-07-21] MEDS: HYDROmorphone 2 MG TAB PO PRN ×3 (05:41→21:03)
[2023-07-21 06:21] LABS: #Basophils 0.1 thou/uL (0.0-0.2); #Eosinphils 14.5 thou/uL (0.0-0.7); #Monocytes 1.7 thou/uL (0.11-0.59); #Neutrophils 3.2 thou/uL (1.40-6.50); %Basophils 0.6 % (0.0-1.0); %Eosinophils 61.8 % (0.0-10.0); %Lymphocytes 16.7 % (21.0-51.0); %Monocytes 7.2 % (0.0-10.0); %Neutrophils 13.4 % (42.0-75.0); Hematocrit 29.4 % (36.0-47.0); Hemoglobin 8.9 g/dL (12.0-16.0); Manual Diff?? YES; Mean Corpuscular HGB CONC 30.3 g/dL (32.0-36.0); Mean Platelet Volume 10.7 fL (7.4-10.4); Platelet Count 338 10x3/uL (130-400); RBC Distribution Width 18.9 % (11.5-14.5); Red Blood Cell (RBC) Count 3.42 mill/uL (4.20-5.40); White Blood Cell (WBC) Count 23.5 10x3/uL (4.8-10.8)
[2023-07-21 07:23] LABS: Anisocytosis SLIGHT = 6-15 cells HPF (0-5); Band 3 % (5-11); CellaVision Operator ID LAB.NR; Eosinophils 62 % (0-10); Lymphocytes 16 % (21-51); Macrocytosis SLIGHT = 6-15 cells HPF (0-5); Monocytes 3 % (0-10); Neutrophil 16 % (42-75); Platelet Adequacy Comment Platelets Normal; Polychromasia SLIGHT = 2-3 cells HPF (0-2); Smudge Cells 14.9 %; Total Cell Count 121
[2023-07-21] MEDS: Ipratropium Bromide 2.5 ml Neb NEB SCH ×3 (07:35→19:03)
[2023-07-21] MEDS: Bisacodyl 5 MG TAB PO SCH (07:57)
[2023-07-21] MEDS: Aspirin 81 mg Enteric Coated Tablet PO SCH (07:57)
[2023-07-21] MEDS: Ascorbic Acid 500 mg Chewable Tablet PO SCH ×2 (07:58→20:53)
[2023-07-21] MEDS: Polyethylene Glycol 3350 17 GM Packet PO SCH (07:58)
[2023-07-21] MEDS ORDERED: Fentanyl 250 MCG/5 ML VIAL ONE (08:02)
[2023-07-21] MEDS ORDERED: SUGAMMADEX SODIUM 200 MG/2 ML VIAL ONE (08:03)
[2023-07-21] MEDS: oxyCODONE 5 MG TAB PO SCH ×3 (08:53→20:56)
[2023-07-21] MEDS: Pregabalin 50 MG CAP PO SCH ×3 (08:53→20:53)
[2023-07-21] MEDS ORDERED: fentaNYL 50 mcg/mL 1 mL Vial ONE (09:27)
[2023-07-21] MEDS ORDERED: Vancomycin 1 GM VIAL ONE (09:30)
[2023-07-21] MEDS ORDERED: Bacitracin Zinc Ointment 30 gm TUBE ONE ×2 (09:30→11:49)
[2023-07-21] MEDS ORDERED: Bupivacaine PF 0.5% 30 ML VIAL ONE (09:30)
[2023-07-21] MEDS ORDERED: Mineral Oil Sterile 10 ML VIAL ONE (09:30)
[2023-07-21] MEDS ORDERED: Tobramycin Sulfate 1.2 GM VIAL ONE (09:30)
[2023-07-21] MEDS ORDERED: Dexmedetomidine 200 MCG/2 ML VIAL ONE (09:44)
[2023-07-21] MEDS ORDERED: HYDROmorphone 2 MG/ML VIAL ONE (09:44)
[2023-07-21] MEDS ORDERED: Ondansetron PF 4 MG/2 ML Vial ONE ×2 (10:05→14:56)
[2023-07-21] MEDS ORDERED: PROPOFOL 200 MG/20 ML VIAL ONE (10:05)
[2023-07-21] MEDS ORDERED: Lidocaine 1% PF 5 ML VIAL ONE (10:05)
[2023-07-21] MEDS ORDERED: Thrombin 5000 UNITS/5 ML VIAL ONE ×2 (11:02→11:40)
[2023-07-21] MEDS ORDERED: Iopamidol-370 76% 500 ML MDV (1 ML CHARGE) ONE (11:49)
[2023-07-21] MEDS ORDERED: Ondansetron HCl/PF 4 MG/2 ML Vial IVP PRN (12:14)
[2023-07-21] MEDS ORDERED: HYDROmorphone 2 MG/ML VIAL SLOW IVP PRN (12:14)
[2023-07-21] MEDS ORDERED: HYDROmorphone 0.5 MG/0.5 ML SYRINGE ONE ×2 (14:23→14:37)
[2023-07-21 14:39] LABS: Hematocrit 30.9 % (36.0-47.0); Hemoglobin 9.4 g/dL (12.0-16.0); Manual Diff?? YES; Mean Corpuscular HGB CONC 30.4 g/dL (32.0-36.0); Mean Corpuscular Hemoglobin 26.1 pg (27.0-31.0); Mean Corpuscular Volume 85.8 fl (78.0-98.0); Mean Platelet Volume 10.6 fL (7.4-10.4); Platelet Count 313 10x3/uL (130-400); RBC Distribution Width 18.6 % (11.5-14.5); White Blood Cell (WBC) Count 23.2 10x3/uL (4.8-10.8)
[2023-07-21 14:40] LABS: Delete Auto Diff?? YES
[2023-07-21 15:04] LABS: Anisocytosis SLIGHT = 6-15 cells HPF (0-5); Band 1 % (5-11); CellaVision Operator ID LAB.MJL; Eosinophils 64 % (0-10); Hypochromia SLIGHT = 6-15 cells HPF (0-5); Lymphocytes 9 % (21-51); Monocytes 9 % (0-10); Neutrophil 17 % (42-75); Platelet Adequacy Comment Platelets Normal; Polychromasia SLIGHT = 2-3 cells HPF (0-2); Total Cell Count 101
[2023-07-21] MEDS: Fluconazole 100 MG TAB PO SCH (15:31)
[2023-07-21] MEDS: Furosemide 20 MG TAB PO SCH (15:33)
[2023-07-21] MEDS: DAPTOmycin 400 MG in Sodium Chloride 0.9% 50 ML IVPB SCH (15:40)
[2023-07-21] MEDS: Meperidine HCl/PF 25 MG/ML VIAL IM PRN (18:02)
[2023-07-21] MEDS: Pramipexole Di-HCl 0.25 MG TAB PO SCH (20:53)
[2023-07-21] MEDS: Amitriptyline HCl 25 MG TAB PO SCH (20:53)
[2023-07-21] MEDS: Senokot S 8.6-50 MG TAB PO SCH (20:54)
[2023-07-21] MEDS: Ondansetron PF 4 MG/2 ML Vial IVP PRN (23:58)
[2023-07-22] MEDS: Meperidine HCl/PF 25 MG/ML VIAL IM PRN ×2 (00:08→16:23)
[2023-07-22] MEDS: Ipratropium Bromide 2.5 ml Neb NEB SCH ×4 (00:15→19:40)
[2023-07-22] MEDS: HYDROmorphone 2 MG TAB PO PRN ×5 (01:20→22:36)
[2023-07-22 06:16] LABS: #Basophils 0.1 thou/uL (0.0-0.2); #Eosinphils 4.6 thou/uL (0.0-0.7); #Monocytes 1.4 thou/uL (0.11-0.59); #Neutrophils 15.4 thou/uL (1.40-6.50); %Basophils 0.4 % (0.0-1.0); %Eosinophils 19.7 % (0.0-10.0); %Lymphocytes 8.1 % (21.0-51.0); %Monocytes 5.9 % (0.0-10.0); %Neutrophils 65.5 % (42.0-75.0); Hematocrit 29.1 % (36.0-47.0); Hemoglobin 8.8 g/dL (12.0-16.0); Mean Corpuscular HGB CONC 30.2 g/dL (32.0-36.0); Mean Corpuscular Hemoglobin 25.8 pg (27.0-31.0); Mean Corpuscular Volume 85.3 fl (78.0-98.0); Mean Platelet Volume 10.6 fL (7.4-10.4); Platelet Count 387 10x3/uL (130-400); RBC Distribution Width 19.2 % (11.5-14.5); Red Blood Cell (RBC) Count 3.41 mill/uL (4.20-5.40); White Blood Cell (WBC) Count 23.5 10x3/uL (4.8-10.8)
[2023-07-22 06:37] LABS: Anion Gap 12 mmol/L (10-20); BUN (Urea Nitrogen) 15 mg/dL (9.8-20.1); Calc. Creatinine Clearance 98 mL/min (70-130); Calcium 9.4 mg/dL (7.8-10.44); Carbon Dioxide 30 mmol/L (22-29); Chloride 99 mmol/L (98-107); Estimated GFR 99; Glucose 131 mg/dL (70-105); Potassium 4.3 mmol/L (3.5-5.1); Sodium 137 mmol/L (136-145)
[2023-07-22] MEDS: oxyCODONE 5 MG TAB PO SCH ×2 (08:51→20:32)
[2023-07-22] MEDS: Fluconazole 100 MG TAB PO SCH ×2 (08:53→08:54)
[2023-07-22] MEDS: Aspirin 81 mg Enteric Coated Tablet PO SCH ×2 (08:53→20:35)
[2023-07-22] MEDS: Ascorbic Acid 500 mg Chewable Tablet PO SCH ×2 (08:53→20:38)
[2023-07-22] MEDS: Senokot S 8.6-50 MG TAB PO SCH ×2 (08:54→20:37)
[2023-07-22] MEDS: Pregabalin 50 MG CAP PO SCH ×3 (08:54→20:34)
[2023-07-22] MEDS: Furosemide 20 MG TAB PO SCH (08:54)
[2023-07-22] MEDS ORDERED: TETANUS, DIPHTHERIA TOX,ADULT (TDVAX) 0.5 ML VIAL IM ONE (12:04)
[2023-07-22] MEDS ORDERED: Milk Of Magnesia 30 ML UDCUP PO PRN (12:04)
[2023-07-22] MEDS ORDERED: Bisacodyl 10 MG SUPP PR PRN (12:04)
[2023-07-22] MEDS ORDERED: Communication Order-Pharmacy FS PRN (12:15)
[2023-07-22] MEDS: Cyclobenzaprine 10 MG TAB PO PRN (12:50)
[2023-07-22] MEDS: Polyethylene Glycol 3350 17 GM Packet PO SCH ×2 (13:00→20:38)
[2023-07-22] MEDS ORDERED: Meropenem 1 GM in Sodium Chloride 0.9% 100 ML IVPB SCH (13:15)
[2023-07-22] MEDS ORDERED: Merrem (PEDI) 500 MG in Syringe 0 ML IVPB SCH (14:00)
[2023-07-22] MEDS: DAPTOmycin 400 MG in Sodium Chloride 0.9% 50 ML IVPB SCH (15:50)
[2023-07-22] MEDS: Loratadine 10 MG TAB PO PRN (20:36)
[2023-07-22] MEDS: Amitriptyline HCl 25 MG TAB PO SCH (20:36)
[2023-07-22] MEDS: Pramipexole Di-HCl 0.25 MG TAB PO SCH (20:37)
[2023-07-22] MEDS: Meropenem 1 GM in Sodium Chloride 0.9% 100 ML IVPB SCH (22:31)
[2023-07-23] MEDS: Ipratropium Bromide 2.5 ml Neb NEB SCH ×4 (00:30→19:16)
[2023-07-23] MEDS: Meropenem 1 GM in Sodium Chloride 0.9% 100 ML IVPB SCH ×3 (05:22→20:57)
[2023-07-23 05:37] LABS: #Basophils 0.1 thou/uL (0.0-0.2); #Monocytes 1.6 thou/uL (0.11-0.59); #Neutrophils 7.9 thou/uL (1.40-6.50); %Basophils 0.5 % (0.0-1.0); %Eosinophils 41.6 % (0.0-10.0); %Lymphocytes 13.9 % (21.0-51.0); %Monocytes 7.3 % (0.0-10.0); %Neutrophils 36.4 % (42.0-75.0); Hematocrit 24.5 % (36.0-47.0); Hemoglobin 7.5 g/dL (12.0-16.0); Manual Diff?? YES; Mean Corpuscular HGB CONC 30.6 g/dL (32.0-36.0); Mean Corpuscular Hemoglobin 26.2 pg (27.0-31.0); Mean Corpuscular Volume 85.7 fl (78.0-98.0); Mean Platelet Volume 10.8 fL (7.4-10.4); Platelet Count 299 10x3/uL (130-400); RBC Distribution Width 19.1 % (11.5-14.5); Red Blood Cell (RBC) Count 2.86 mill/uL (4.20-5.40); White Blood Cell (WBC) Count 21.6 10x3/uL (4.8-10.8)
[2023-07-23 06:15] LABS: Anion Gap 10 mmol/L (10-20); BUN (Urea Nitrogen) 14 mg/dL (9.8-20.1); Calc. Creatinine Clearance 107 mL/min (70-130); Calcium 9.4 mg/dL (7.8-10.44); Carbon Dioxide 31 mmol/L (22-29); Chloride 98 mmol/L (98-107); Estimated GFR 104; Glucose 90 mg/dL (70-105); Potassium 3.6 mmol/L (3.5-5.1); Sodium 135 mmol/L (136-145)
[2023-07-23] MEDS: HYDROmorphone 2 MG TAB PO PRN ×2 (06:18→14:09)
[2023-07-23 06:26] LABS: Anisocytosis SLIGHT = 6-15 cells HPF (0-5); CellaVision Operator ID lab.sh2; Eosinophils 38 % (0-10); Hypochromia SLIGHT = 6-15 cells HPF (0-5); Lymphocytes 14 % (21-51); Macrocytosis SLIGHT = 6-15 cells HPF (0-5); Monocytes 3 % (0-10); Neutrophil 45 % (42-75); Platelet Adequacy Comment Platelets Normal; Polychromasia SLIGHT = 2-3 cells HPF (0-2); Smudge Cells 19.2 %; Total Cell Count 99
[2023-07-23] MEDS: Ascorbic Acid 500 mg Chewable Tablet PO SCH ×2 (09:36→20:58)
[2023-07-23] MEDS: Furosemide 20 MG TAB PO SCH (09:38)
[2023-07-23] MEDS: oxyCODONE 5 MG TAB PO SCH ×2 (09:38→20:57)
[2023-07-23] MEDS: Pregabalin 50 MG CAP PO SCH ×3 (09:39→21:00)
[2023-07-23] MEDS: Polyethylene Glycol 3350 17 GM Packet PO SCH ×2 (09:40→21:00)
[2023-07-23] MEDS: Aspirin 81 mg Enteric Coated Tablet PO SCH ×2 (09:40→20:59)
[2023-07-23] MEDS: Senokot S 8.6-50 MG TAB PO SCH ×2 (09:40→21:00)
[2023-07-23] MEDS ORDERED: Fluconazole 100 MG TAB PO SCH (09:45)
[2023-07-23] MEDS: DAPTOmycin 400 MG in Sodium Chloride 0.9% 50 ML IVPB SCH ×3 (18:04→19:44)
[2023-07-23] MEDS ORDERED: Midodrine HCl 5 MG TAB PO SCH (19:30)
[2023-07-23] MEDS: Pramipexole Di-HCl 0.25 MG TAB PO SCH (20:59)
[2023-07-23] MEDS: Amitriptyline HCl 25 MG TAB PO SCH (20:59)
[2023-07-24] MEDS: Ipratropium Bromide 2.5 ml Neb NEB SCH ×5 (00:41→23:45)
[2023-07-24] MEDS: Meropenem 1 GM in Sodium Chloride 0.9% 100 ML IVPB SCH ×2 (05:25→13:25)
[2023-07-24] MEDS: Cyclobenzaprine 10 MG TAB PO PRN ×2 (05:31→13:33)
[2023-07-24 05:42] LABS: Hematocrit 25.2 % (36.0-47.0); Hemoglobin 7.6 g/dL (12.0-16.0); Manual Diff?? YES; Mean Corpuscular HGB CONC 30.2 g/dL (32.0-36.0); Mean Corpuscular Hemoglobin 25.9 pg (27.0-31.0); Mean Corpuscular Volume 85.7 fl (78.0-98.0); Mean Platelet Volume 10.7 fL (7.4-10.4); Platelet Count 324 10x3/uL (130-400); RBC Distribution Width 19.1 % (11.5-14.5); Red Blood Cell (RBC) Count 2.94 mill/uL (4.20-5.40); White Blood Cell (WBC) Count 21.8 10x3/uL (4.8-10.8)
[2023-07-24 05:47] LABS: Delete Auto Diff?? YES
[2023-07-24 06:17] LABS: CellaVision Operator ID LAB.CLH1; Eosinophils 62 % (0-10); Hypochromia SLIGHT = 6-15 cells HPF (0-5); Lymphocytes 13 % (21-51); Macrocytosis SLIGHT = 6-15 cells HPF (0-5); Monocytes 1 % (0-10); Neutrophil 21 % (42-75); Platelet Adequacy Comment Platelets Normal; Polychromasia MODERATE = 3-4 cells HPF (0-2); Promyelocytes 1 % (0-0); Reactive Lymphocytes 1 % (0-10); Total Cell Count 100
[2023-07-24] MEDS: oxyCODONE 5 MG TAB PO SCH ×2 (08:31→20:49)
[2023-07-24] MEDS: Furosemide 20 MG TAB PO SCH (08:34)
[2023-07-24] MEDS: Aspirin 81 mg Enteric Coated Tablet PO SCH ×2 (08:34→20:49)
[2023-07-24] MEDS: Pregabalin 50 MG CAP PO SCH ×3 (08:35→20:51)
[2023-07-24] MEDS: Ascorbic Acid 500 mg Chewable Tablet PO SCH ×2 (08:36→20:51)
[2023-07-24] MEDS: Senokot S 8.6-50 MG TAB PO SCH ×2 (08:36→20:50)
[2023-07-24] MEDS: Polyethylene Glycol 3350 17 GM Packet PO SCH ×2 (08:37→20:51)
[2023-07-24] MEDS ORDERED: Fluconazole 100 MG TAB PO SCH (09:00)
[2023-07-24] MEDS: HYDROmorphone 2 MG TAB PO PRN ×2 (11:52→15:58)
[2023-07-24 14:14] LABS: Fungus Stain Final report (.)
[2023-07-24] MEDS: DAPTOmycin 400 MG in Sodium Chloride 0.9% 50 ML IVPB SCH (18:00)
[2023-07-24] MEDS ORDERED: Acetaminophen 650 MG Suppository PR PRN (20:14)
[2023-07-24] MEDS ORDERED: Acetaminophen 500 MG TAB PO SCH (20:15)
[2023-07-24] MEDS: Pramipexole Di-HCl 0.25 MG TAB PO SCH (20:51)
[2023-07-24] MEDS: Amitriptyline HCl 25 MG TAB PO SCH (20:51)
[2023-07-24] MEDS: Ondansetron PF 4 MG/2 ML Vial IVP PRN (21:56)
[2023-07-25] MEDS: HYDROmorphone 2 MG TAB PO PRN ×3 (00:39→23:58)
[2023-07-25] MEDS: Cefepime 2 GM in Sodium Chloride 0.9% 100 ML IVPB SCH ×3 (03:35→17:43)
[2023-07-25 07:04] LABS: Hematocrit 26.3 % (36.0-47.0); Manual Diff?? YES; Mean Corpuscular HGB CONC 30.4 g/dL (32.0-36.0); Mean Corpuscular Hemoglobin 25.9 pg (27.0-31.0); Mean Corpuscular Volume 85.1 fl (78.0-98.0); Mean Platelet Volume 10.8 fL (7.4-10.4); Platelet Count 387 10x3/uL (130-400); RBC Distribution Width 18.9 % (11.5-14.5); Red Blood Cell (RBC) Count 3.09 mill/uL (4.20-5.40); White Blood Cell (WBC) Count 20.2 10x3/uL (4.8-10.8)
[2023-07-25 07:05] LABS: Delete Auto Diff?? YES
[2023-07-25] MEDS: Ipratropium Bromide 2.5 ml Neb NEB SCH ×4 (07:06→23:40)
[2023-07-25 07:29] LABS: Anisocytosis SLIGHT = 6-15 cells HPF (0-5); Band 2 % (5-11); CellaVision Operator ID lab.dlt; Eosinophils 49 % (0-10); Lymphocytes 13 % (21-51); Monocytes 8 % (0-10); Neutrophil 28 % (42-75); Platelet Adequacy Comment Platelets Normal; Poikilocytosis SLIGHT = 6-15 cells HPF (0-5); Polychromasia SLIGHT = 2-3 cells HPF (0-2); Total Cell Count 97
[2023-07-25] MEDS: oxyCODONE 5 MG TAB PO SCH ×2 (09:54→21:13)
[2023-07-25] MEDS: Senokot S 8.6-50 MG TAB PO SCH ×2 (09:55→21:14)
[2023-07-25] MEDS: Pregabalin 50 MG CAP PO SCH ×3 (09:55→21:14)
[2023-07-25] MEDS: Furosemide 20 MG TAB PO SCH (09:55)
[2023-07-25] MEDS: Ascorbic Acid 500 mg Chewable Tablet PO SCH ×2 (09:55→21:14)
[2023-07-25] MEDS: Polyethylene Glycol 3350 17 GM Packet PO SCH ×2 (09:56→21:12)
[2023-07-25] MEDS: Aspirin 81 mg Enteric Coated Tablet PO SCH ×2 (09:56→21:12)
[2023-07-25] MEDS: Ipratropium/Albuterol 3 ML NEB NEB PRN (12:48)
[2023-07-25 14:31] LABS: Ref Lab Test Ordered STRONGALOIDES AB; Reference Lab Name LABCORP
[2023-07-25] MEDS: DAPTOmycin 400 MG in Sodium Chloride 0.9% 50 ML IVPB SCH (18:36)
[2023-07-25] MEDS: Cyclobenzaprine 10 MG TAB PO PRN (18:36)
[2023-07-25] MEDS: Amitriptyline HCl 25 MG TAB PO SCH (21:14)
[2023-07-25] MEDS: Pramipexole Di-HCl 0.25 MG TAB PO SCH (21:14)
[2023-07-25 22:38] LABS: Iron 15 ug/dL (50-170); Iron Binding Capacity, Total 261 mcg/dL (265-497)
[2023-07-25 22:56] LABS: Ferritin 226.69 ng/mL (10-291)
[2023-07-26] MEDS: HYDROmorphone 2 MG TAB PO PRN (04:33)
[2023-07-26] MEDS: Cefepime 2 GM in Sodium Chloride 0.9% 100 ML IVPB SCH ×3 (04:33→19:24)
[2023-07-26] MEDS: Ipratropium Bromide 2.5 ml Neb NEB SCH ×3 (07:41→18:41)
[2023-07-26] MEDS: Senokot S 8.6-50 MG TAB PO SCH ×2 (08:57→20:45)
[2023-07-26] MEDS: Furosemide 20 MG TAB PO SCH (08:57)
[2023-07-26] MEDS: oxyCODONE 5 MG TAB PO SCH ×2 (08:57→20:25)
[2023-07-26] MEDS: Ascorbic Acid 500 mg Chewable Tablet PO SCH ×2 (08:58→20:24)
[2023-07-26] MEDS: Polyethylene Glycol 3350 17 GM Packet PO SCH ×2 (08:58→20:23)
[2023-07-26] MEDS: Pregabalin 50 MG CAP PO SCH ×3 (08:58→20:24)
[2023-07-26] MEDS: Aspirin 81 mg Enteric Coated Tablet PO SCH ×2 (08:58→20:23)
[2023-07-26 13:52] LABS: Hematocrit 28.4 % (36.0-47.0); Hemoglobin 8.7 g/dL (12.0-16.0); Manual Diff?? YES; Mean Corpuscular HGB CONC 30.6 g/dL (32.0-36.0); Mean Corpuscular Hemoglobin 25.7 pg (27.0-31.0); Mean Corpuscular Volume 83.8 fl (78.0-98.0); Mean Platelet Volume 10.7 fL (7.4-10.4); Platelet Count 437 10x3/uL (130-400); RBC Distribution Width 19.1 % (11.5-14.5); Red Blood Cell (RBC) Count 3.39 mill/uL (4.20-5.40); White Blood Cell (WBC) Count 19.3 10x3/uL (4.8-10.8)
[2023-07-26 13:53] LABS: Delete Auto Diff?? YES
[2023-07-26] MEDS ORDERED: Iron, Sodium Ferric Gluconate 250 MG in Sodium Chloride 0.9% 250 ML 250 ML IVPB SCH ×2 (14:00→20:15)
[2023-07-26 14:12] LABS: Anisocytosis SLIGHT = 6-15 cells HPF (0-5); Band 3 % (5-11); CellaVision Operator ID lab.dlt; Eosinophils 59 % (0-10); Hypochromia SLIGHT = 6-15 cells HPF (0-5); Lymphocytes 14 % (21-51); Monocytes 7 % (0-10); Neutrophil 18 % (42-75); Platelet Adequacy Comment Platelets Increased; Poikilocytosis SLIGHT = 6-15 cells HPF (0-5); Polychromasia SLIGHT = 2-3 cells HPF (0-2); Total Cell Count 102
[2023-07-26] MEDS ORDERED: Tobramycin Sulfate 1.2 GM VIAL ONE (14:56)
[2023-07-26] MEDS ORDERED: Mineral Oil Sterile 10 ML VIAL ONE (14:56)
[2023-07-26] MEDS ORDERED: Thrombin 5000 UNITS/5 ML VIAL ONE (14:56)
[2023-07-26] MEDS ORDERED: Bacitracin Zinc Ointment 30 gm TUBE ONE (14:56)
[2023-07-26] MEDS ORDERED: fentaNYL PF 100 MCG/2 ML SYRINGE ONE ×3 (16:27→19:40)
[2023-07-26] MEDS ORDERED: HYDROmorphone 0.5 MG/0.5 ML SYRINGE ONE ×4 (16:28→19:19)
[2023-07-26] MEDS ORDERED: HYDROmorphone 2 MG/ML VIAL ONE (16:47)
[2023-07-26] MEDS ORDERED: Dextrose 50% Abboject 50 ML SYRINGE ONE (16:50)
[2023-07-26] MEDS ORDERED: Ondansetron PF 4 MG/2 ML Vial ONE (17:07)
[2023-07-26] MEDS ORDERED: Lidocaine 1% PF 5 ML VIAL ONE (17:07)
[2023-07-26] MEDS ORDERED: PROPOFOL 200 MG/20 ML VIAL ONE (17:07)
[2023-07-26] MEDS ORDERED: PHENYLEPHRINE-NS 100 MCG/ML 10 ML SYRINGE ONE (17:07)
[2023-07-26 18:14] LABS: Fungus Stain Final report (.)
[2023-07-26 18:14] LABS: Fungus Stain Final report (.)
[2023-07-26 18:14] LABS: Fungus Stain Final report (.)
[2023-07-26] MEDS ORDERED: HYDROmorphone 2 MG/ML VIAL SLOW IVP PRN (18:41)
[2023-07-26] MEDS ORDERED: Promethazine HCl 25 MG/ML VIAL IM PRN (18:41)
[2023-07-26] MEDS ORDERED: Ondansetron HCl/PF 4 MG/2 ML Vial IVP PRN (18:41)
[2023-07-26] MEDS: DAPTOmycin 400 MG in Sodium Chloride 0.9% 50 ML IVPB SCH (20:21)
[2023-07-26] MEDS: Pramipexole Di-HCl 0.25 MG TAB PO SCH (20:24)
[2023-07-26] MEDS: Amitriptyline HCl 25 MG TAB PO SCH (20:26)
[2023-07-27] MEDS: HYDROmorphone 0.5 MG/0.5 ML SYRINGE SLOW IVP PRN ×2 (00:17→17:09)
[2023-07-27] MEDS: Cefepime 2 GM in Sodium Chloride 0.9% 100 ML IVPB SCH ×3 (01:46→17:19)
[2023-07-27] MEDS: Ipratropium Bromide 2.5 ml Neb NEB SCH ×4 (01:59→18:16)
[2023-07-27] MEDS: Ipratropium/Albuterol 3 ML NEB NEB PRN (04:30)
[2023-07-27] MEDS: Cyclobenzaprine 10 MG TAB PO PRN ×2 (04:47→21:25)
[2023-07-27] MEDS: Acetaminophen 325 MG TAB PO PRN (04:47)
[2023-07-27] MEDS ORDERED: Lidocaine 1% PF 5 ML VIAL ONE (09:32)
[2023-07-27] MEDS ORDERED: PROPOFOL 200 MG/20 ML VIAL ONE (09:32)
[2023-07-27] MEDS ORDERED: fentaNYL PF 100 MCG/2 ML SYRINGE ONE (10:22)
[2023-07-27] MEDS ORDERED: Promethazine HCl 25 MG/ML VIAL IM PRN (10:29)
[2023-07-27] MEDS ORDERED: Ondansetron HCl/PF 4 MG/2 ML Vial IVP PRN (10:29)
[2023-07-27] MEDS ORDERED: Magnevist 469MG/ML 20 ML VIAL ONE (10:37)
[2023-07-27] MEDS ORDERED: fentaNYL 50 mcg/mL 1 mL Vial ONE ×3 (10:42→11:09)
[2023-07-27] MEDS: Fluconazole 100 MG TAB PO SCH (11:37)
[2023-07-27] MEDS: Aspirin 81 mg Enteric Coated Tablet PO SCH ×2 (11:37→20:22)
[2023-07-27] MEDS: Ascorbic Acid 500 mg Chewable Tablet PO SCH ×2 (11:38→20:23)
[2023-07-27] MEDS: Pregabalin 50 MG CAP PO SCH ×3 (11:38→20:23)
[2023-07-27] MEDS: Furosemide 20 MG TAB PO SCH (11:38)
[2023-07-27] MEDS: Senokot S 8.6-50 MG TAB PO SCH ×2 (11:38→20:23)
[2023-07-27] MEDS: Polyethylene Glycol 3350 17 GM Packet PO SCH ×2 (11:39→20:23)
[2023-07-27] MEDS: oxyCODONE 5 MG TAB PO SCH ×2 (12:45→20:22)
[2023-07-27 13:27] LABS: Hematocrit 29.5 % (36.0-47.0); Hemoglobin 8.8 g/dL (12.0-16.0); Manual Diff?? YES; Mean Corpuscular HGB CONC 29.8 g/dL (32.0-36.0); Mean Corpuscular Hemoglobin 25.7 pg (27.0-31.0); Mean Platelet Volume 10.3 fL (7.4-10.4); Platelet Count 388 10x3/uL (130-400); RBC Distribution Width 18.9 % (11.5-14.5); Red Blood Cell (RBC) Count 3.43 mill/uL (4.20-5.40); White Blood Cell (WBC) Count 15.2 10x3/uL (4.8-10.8)
[2023-07-27 13:37] LABS: Delete Auto Diff?? YES
[2023-07-27] MEDS: Meperidine HCl/PF 25 MG/ML VIAL IM SCH (13:57)
[2023-07-27] MEDS: Promethazine HCl 25 MG/ML VIAL IM SCH (13:57)
[2023-07-27 14:10] LABS: Anisocytosis SLIGHT = 6-15 cells HPF (0-5); Burr Cells SLIGHT = 2-5 cells HPF (0-1); CellaVision Operator ID LAB.KB; Eosinophils 57 % (0-10); Hypochromia SLIGHT = 6-15 cells HPF (0-5); Lymphocytes 14 % (21-51); Monocytes 7 % (0-10); Neutrophil 21 % (42-75); Platelet Adequacy Comment Platelets Normal; Polychromasia SLIGHT = 2-3 cells HPF (0-2); Smudge Cells 19.4 %; Total Cell Count 103
[2023-07-27] MEDS ORDERED: Activase 2 MG VIAL CATH SCH (17:15)
[2023-07-27] MEDS ORDERED: Sterile Water 10 ML VIAL IVP SCH (17:30)
[2023-07-27] MEDS: DAPTOmycin 400 MG in Sodium Chloride 0.9% 50 ML IVPB SCH (18:36)
[2023-07-27] MEDS: Amitriptyline HCl 25 MG TAB PO SCH (20:22)
[2023-07-27] MEDS: Pramipexole Di-HCl 0.25 MG TAB PO SCH (20:23)
[2023-07-27] MEDS ORDERED: Sodium Chloride 0.9% 1,000 ML IV SCH (22:15)
[2023-07-28] MEDS: Ipratropium Bromide 2.5 ml Neb NEB SCH ×4 (00:57→18:18)
[2023-07-28] MEDS: HYDROmorphone 0.5 MG/0.5 ML SYRINGE SLOW IVP PRN ×3 (01:26→23:31)
[2023-07-28] MEDS: Cefepime 2 GM in Sodium Chloride 0.9% 100 ML IVPB SCH ×3 (01:27→17:31)
[2023-07-28] MEDS: Cyclobenzaprine 10 MG TAB PO PRN ×2 (05:44→17:31)
[2023-07-28 06:14] LABS: Hematocrit 24.8 % (36.0-47.0); Hemoglobin 7.4 g/dL (12.0-16.0); Manual Diff?? YES; Mean Corpuscular HGB CONC 29.8 g/dL (32.0-36.0); Mean Corpuscular Hemoglobin 25.4 pg (27.0-31.0); Mean Corpuscular Volume 85.2 fl (78.0-98.0); Mean Platelet Volume 11.6 fL (7.4-10.4); Platelet Count 302 10x3/uL (130-400); RBC Distribution Width 19.1 % (11.5-14.5); Red Blood Cell (RBC) Count 2.91 mill/uL (4.20-5.40); White Blood Cell (WBC) Count 18.5 10x3/uL (4.8-10.8)
[2023-07-28 06:18] LABS: Delete Auto Diff?? YES
[2023-07-28 06:54] LABS: CellaVision Operator ID lab.abc; Eosinophils 58 % (0-10); Hypochromia SLIGHT = 6-15 cells HPF (0-5); Lymphocytes 11 % (21-51); Monocytes 3 % (0-10); Myelocyte 1 % (0-0); Neutrophil 27 % (42-75); Platelet Adequacy Comment Platelets Normal; Total Cell Count 100
[2023-07-28] MEDS: Polyethylene Glycol 3350 17 GM Packet PO SCH ×3 (08:43→20:07)
[2023-07-28] MEDS: Pregabalin 50 MG CAP PO SCH ×3 (08:44→20:08)
[2023-07-28] MEDS: Fluconazole 100 MG TAB PO SCH (08:50)
[2023-07-28] MEDS: Senokot S 8.6-50 MG TAB PO SCH ×2 (08:51→20:08)
[2023-07-28] MEDS: Ascorbic Acid 500 mg Chewable Tablet PO SCH ×2 (08:51→20:08)
[2023-07-28] MEDS: Aspirin 81 mg Enteric Coated Tablet PO SCH ×2 (08:52→20:08)
[2023-07-28] MEDS: oxyCODONE 5 MG TAB PO SCH ×2 (08:55→20:08)
[2023-07-28] MEDS: Furosemide 20 MG TAB PO SCH (09:00)
[2023-07-28] MEDS ORDERED: Bisacodyl 10 MG SUPP PR SCH (11:00)
[2023-07-28] MEDS: Promethazine HCl 25 MG/ML VIAL IM SCH (11:41)
[2023-07-28] MEDS: Meperidine HCl/PF 25 MG/ML VIAL IM SCH (11:41)
[2023-07-28] MEDS ORDERED: Rocuronium Bromide 10 MG/ML (10ML VIAL) ONE (12:41)
[2023-07-28] MEDS ORDERED: Lidocaine 1% PF 5 ML VIAL ONE (12:41)
[2023-07-28] MEDS ORDERED: PROPOFOL 200 MG/20 ML VIAL ONE (12:41)
[2023-07-28] MEDS ORDERED: fentaNYL 50 mcg/mL 1 mL Vial ONE ×4 (13:41→14:24)
[2023-07-28] MEDS ORDERED: Promethazine HCl 25 MG/ML VIAL IM PRN (13:43)
[2023-07-28] MEDS ORDERED: Meperidine HCl/PF 25 MG/ML VIAL SLOW IVP PRN (13:43)
[2023-07-28] MEDS ORDERED: Ondansetron HCl/PF 4 MG/2 ML Vial IVP PRN (13:43)
[2023-07-28 14:31] LABS: BF Color Red; Body Fluid Source Abscess Fluid; Clarity Cloudy/Turbid (Clear); Tube # EDTA
[2023-07-28] MEDS: DAPTOmycin 400 MG in Sodium Chloride 0.9% 50 ML IVPB SCH (17:42)
[2023-07-28] MEDS: Amitriptyline HCl 25 MG TAB PO SCH (20:08)
[2023-07-28] MEDS: Pramipexole Di-HCl 0.25 MG TAB PO SCH (20:08)
[2023-07-29] MEDS: Ipratropium Bromide 2.5 ml Neb NEB SCH ×4 (00:42→18:20)
[2023-07-29] MEDS: Cefepime 2 GM in Sodium Chloride 0.9% 100 ML IVPB SCH ×3 (01:47→18:30)
[2023-07-29] MEDS: Cyclobenzaprine 10 MG TAB PO PRN ×2 (01:47→14:56)
[2023-07-29 05:19] LABS: Hematocrit 25.8 % (36.0-47.0); Hemoglobin 7.7 g/dL (12.0-16.0); Manual Diff?? YES; Mean Corpuscular HGB CONC 29.8 g/dL (32.0-36.0); Mean Corpuscular Hemoglobin 25.4 pg (27.0-31.0); Mean Corpuscular Volume 85.1 fl (78.0-98.0); Mean Platelet Volume 10.4 fL (7.4-10.4); RBC Distribution Width 18.8 % (11.5-14.5); Red Blood Cell (RBC) Count 3.03 mill/uL (4.20-5.40); White Blood Cell (WBC) Count 19.7 10x3/uL (4.8-10.8)
[2023-07-29 05:41] LABS: Anion Gap 12 mmol/L (10-20); BUN (Urea Nitrogen) 13 mg/dL (9.8-20.1); Calc. Creatinine Clearance 119 mL/min (70-130); Calcium 9.8 mg/dL (7.8-10.44); Carbon Dioxide 30 mmol/L (22-29); Chloride 102 mmol/L (98-107); Estimated GFR 107; Glucose 111 mg/dL (70-105); Potassium 3.9 mmol/L (3.5-5.1); Sodium 140 mmol/L (136-145)
[2023-07-29 06:04] LABS: Delete Auto Diff?? YES; Platelet Count 442 10x3/uL (130-400)
[2023-07-29 06:47] LABS: Band 2 % (5-11); CellaVision Operator ID LAB.JMM; Eosinophils 58 % (0-10); Hypochromia SLIGHT = 6-15 cells HPF (0-5); Lymphocytes 9 % (21-51); Macrocytosis SLIGHT = 6-15 cells HPF (0-5); Monocytes 10 % (0-10); Neutrophil 21 % (42-75); Platelet Adequacy Comment Platelets Normal; Polychromasia SLIGHT = 2-3 cells HPF (0-2); Total Cell Count 100
[2023-07-29] MEDS: Aspirin 81 mg Enteric Coated Tablet PO SCH ×2 (09:55→20:59)
[2023-07-29] MEDS: Polyethylene Glycol 3350 17 GM Packet PO SCH ×2 (09:55→21:01)
[2023-07-29] MEDS: Pregabalin 50 MG CAP PO SCH ×3 (09:55→20:59)
[2023-07-29] MEDS: Fluconazole 100 MG TAB PO SCH (09:56)
[2023-07-29] MEDS: oxyCODONE 5 MG TAB PO SCH ×2 (09:57→21:51)
[2023-07-29] MEDS: Furosemide 20 MG TAB PO SCH (09:57)
[2023-07-29] MEDS: Senokot S 8.6-50 MG TAB PO SCH ×2 (09:58→21:01)
[2023-07-29] MEDS: Ascorbic Acid 500 mg Chewable Tablet PO SCH ×2 (09:58→21:00)
[2023-07-29] MEDS: Promethazine HCl 25 MG/ML VIAL IM SCH (09:59)
[2023-07-29] MEDS: Meperidine HCl/PF 25 MG/ML VIAL IM SCH (09:59)
[2023-07-29 15:09] LABS: Hematocrit 25.6 % (36.0-47.0); Hemoglobin 7.7 g/dL (12.0-16.0); Manual Diff?? YES; Mean Corpuscular HGB CONC 30.1 g/dL (32.0-36.0); Mean Corpuscular Hemoglobin 25.8 pg (27.0-31.0); Mean Corpuscular Volume 85.6 fl (78.0-98.0); Mean Platelet Volume 10.1 fL (7.4-10.4); Platelet Count 443 10x3/uL (130-400); RBC Distribution Width 18.8 % (11.5-14.5); Red Blood Cell (RBC) Count 2.99 mill/uL (4.20-5.40); White Blood Cell (WBC) Count 21.1 10x3/uL (4.8-10.8)
[2023-07-29 15:25] LABS: Delete Auto Diff?? YES
[2023-07-29 15:46] LABS: Anisocytosis SLIGHT = 6-15 cells HPF (0-5); Band 1 % (5-11); Burr Cells SLIGHT = 2-5 cells HPF (0-1); CellaVision Operator ID LAB.KB; Eosinophils 47 % (0-10); Hypochromia SLIGHT = 6-15 cells HPF (0-5); Lymphocytes 13 % (21-51); Monocytes 6 % (0-10); Neutrophil 32 % (42-75); Platelet Adequacy Comment Platelets Increased; Polychromasia SLIGHT = 2-3 cells HPF (0-2); Reactive Lymphocytes 1 % (0-10); Smudge Cells 12.5 %; Total Cell Count 104
[2023-07-29] MEDS: HYDROmorphone 0.5 MG/0.5 ML SYRINGE SLOW IVP PRN (19:30)
[2023-07-29] MEDS: DAPTOmycin 400 MG in Sodium Chloride 0.9% 50 ML IVPB SCH (20:57)
[2023-07-29] MEDS: tiZANidine HCl 4 MG TAB PO SCH (21:00)
[2023-07-29] MEDS: Amitriptyline HCl 25 MG TAB PO SCH (21:00)
[2023-07-29] MEDS: Pramipexole Di-HCl 0.25 MG TAB PO SCH (21:00)
[2023-07-29] MEDS: Simethicone Chewable 80 MG TAB PO PRN (21:52)
[2023-07-30] MEDS: Ipratropium Bromide 2.5 ml Neb NEB SCH ×5 (00:45→21:19)
[2023-07-30 01:09] LABS: Tryptase 9.4 ug/L (2.2-13.2)
[2023-07-30] MEDS: Cefepime 2 GM in Sodium Chloride 0.9% 100 ML IVPB SCH ×3 (03:03→20:35)
[2023-07-30 06:03] LABS: Hematocrit 23.8 % (36.0-47.0); Hemoglobin 7.1 g/dL (12.0-16.0); Manual Diff?? YES; Mean Corpuscular HGB CONC 29.8 g/dL (32.0-36.0); Mean Corpuscular Hemoglobin 25.8 pg (27.0-31.0); Mean Corpuscular Volume 86.5 fl (78.0-98.0); Mean Platelet Volume 10.1 fL (7.4-10.4); Platelet Count 432 10x3/uL (130-400); RBC Distribution Width 19.1 % (11.5-14.5); Red Blood Cell (RBC) Count 2.75 mill/uL (4.20-5.40)
[2023-07-30 06:12] LABS: Delete Auto Diff?? YES
[2023-07-30 07:04] LABS: Anisocytosis SLIGHT = 6-15 cells HPF (0-5); CellaVision Operator ID lab.abc; Eosinophils 57 % (0-10); Hypochromia SLIGHT = 6-15 cells HPF (0-5); Large Platelets 3.8 % (0-5); Lymphocytes 14 % (21-51); Monocytes 7 % (0-10); Neutrophil 20 % (42-75); Platelet Adequacy Comment Platelets Normal; Smudge Cells 19.2 %; Total Cell Count 104
[2023-07-30] MEDS ORDERED: Cyclobenzaprine 10 MG TAB PO SCH (07:30)
[2023-07-30] MEDS: oxyCODONE 5 MG TAB PO SCH (09:02)
[2023-07-30] MEDS: Polyethylene Glycol 3350 17 GM Packet PO SCH (09:03)
[2023-07-30] MEDS: Fluconazole 100 MG TAB PO SCH (09:04)
[2023-07-30] MEDS: Furosemide 20 MG TAB PO SCH (09:04)
[2023-07-30] MEDS: Aspirin 81 mg Enteric Coated Tablet PO SCH ×2 (09:04→21:55)
[2023-07-30] MEDS: Pregabalin 50 MG CAP PO SCH ×3 (09:05→21:56)
[2023-07-30] MEDS: tiZANidine HCl 4 MG TAB PO SCH ×3 (09:05→21:57)
[2023-07-30] MEDS: Senokot S 8.6-50 MG TAB PO SCH ×2 (09:05→21:55)
[2023-07-30] MEDS: Ascorbic Acid 500 mg Chewable Tablet PO SCH ×2 (09:05→21:57)
[2023-07-30] MEDS: Promethazine HCl 25 MG/ML VIAL IM SCH (09:06)
[2023-07-30] MEDS: Meperidine HCl/PF 25 MG/ML VIAL IM SCH (09:59)
[2023-07-30] MEDS ORDERED: fentaNYL PF 100 MCG/2 ML SYRINGE ONE (15:58)
[2023-07-30] MEDS ORDERED: HYDROmorphone 2 MG/ML VIAL ONE (15:58)
[2023-07-30] MEDS ORDERED: Bacitracin Zinc Ointment 30 gm TUBE ONE (16:23)
[2023-07-30] MEDS ORDERED: HYDROmorphone 0.5 MG/0.5 ML SYRINGE ONE (17:44)
[2023-07-30] MEDS ORDERED: ALTEPLASE 50 MG/50 ML VIAL IVP PRN (18:25)
[2023-07-30] MEDS: HYDROmorphone 0.5 MG/0.5 ML SYRINGE SLOW IVP PRN (18:40)
[2023-07-30] MEDS ORDERED: Activase 2 MG VIAL CATH SCH ×2 (18:45→21:30)
[2023-07-30] MEDS: DAPTOmycin 400 MG in Sodium Chloride 0.9% 50 ML IVPB SCH (18:49)
[2023-07-30 19:11] LABS: Hematocrit 27.8 % (36.0-47.0); Hemoglobin 8.4 g/dL (12.0-16.0)
[2023-07-30] MEDS: Ipratropium/Albuterol 3 ML NEB NEB PRN (21:15)
[2023-07-30] MEDS: Amitriptyline HCl 25 MG TAB PO SCH (21:55)
[2023-07-30] MEDS: Pramipexole Di-HCl 0.25 MG TAB PO SCH (21:57)
[2023-07-31] MEDS: Ipratropium Bromide 2.5 ml Neb NEB SCH ×5 (00:46→19:33)
[2023-07-31] MEDS: Polyethylene Glycol 3350 17 GM Packet PO SCH ×3 (02:05→22:19)
[2023-07-31] MEDS: Acetaminophen 325 MG TAB PO PRN (02:11)
[2023-07-31] MEDS: Cefepime 2 GM in Sodium Chloride 0.9% 100 ML IVPB SCH ×3 (02:12→21:56)
[2023-07-31] MEDS: HYDROmorphone 0.5 MG/0.5 ML SYRINGE SLOW IVP PRN ×2 (03:00→09:00)
[2023-07-31] MEDS: Aspirin 81 mg Enteric Coated Tablet PO SCH ×2 (08:35→21:55)
[2023-07-31] MEDS: Fluconazole 100 MG TAB PO SCH (08:36)
[2023-07-31] MEDS: tiZANidine HCl 4 MG TAB PO SCH ×3 (08:36→21:53)
[2023-07-31] MEDS: Pregabalin 50 MG CAP PO SCH ×3 (08:36→21:55)
[2023-07-31] MEDS: Furosemide 20 MG TAB PO SCH (08:36)
[2023-07-31] MEDS: Promethazine HCl 25 MG/ML VIAL IM SCH (08:37)
[2023-07-31] MEDS: Ascorbic Acid 500 mg Chewable Tablet PO SCH ×2 (08:37→21:55)
[2023-07-31] MEDS: Senokot S 8.6-50 MG TAB PO SCH ×2 (08:37→21:53)
[2023-07-31] MEDS: Meperidine HCl/PF 25 MG/ML VIAL IM SCH (10:04)
[2023-07-31 10:28] LABS: Hematocrit 29.6 % (36.0-47.0); Hemoglobin 9.2 g/dL (12.0-16.0); Manual Diff?? YES; Mean Corpuscular HGB CONC 31.1 g/dL (32.0-36.0); Mean Corpuscular Hemoglobin 26.1 pg (27.0-31.0); Mean Corpuscular Volume 83.9 fl (78.0-98.0); Mean Platelet Volume 10.2 fL (7.4-10.4); Platelet Count 368 10x3/uL (130-400); RBC Distribution Width 19.1 % (11.5-14.5); Red Blood Cell (RBC) Count 3.53 mill/uL (4.20-5.40); White Blood Cell (WBC) Count 17.8 10x3/uL (4.8-10.8)
[2023-07-31 10:30] LABS: Delete Auto Diff?? YES
[2023-07-31 11:04] LABS: Band 4 % (5-11); Burr Cells SLIGHT = 2-5 cells HPF (0-1); CellaVision Operator ID LAB.GE; Eosinophils 57 % (0-10); Large Platelets 1.8 % (0-5); Lymphocytes 10 % (21-51); Monocytes 7 % (0-10); Neutrophil 21 % (42-75); Platelet Adequacy Comment Platelets Normal; Polychromasia SLIGHT = 2-3 cells HPF (0-2); Reactive Lymphocytes 1 % (0-10); Total Cell Count 112
[2023-07-31] MEDS ORDERED: Ipratropium Bromide 2.5 ml Neb ONE (12:48)
[2023-07-31] MEDS ORDERED: fentaNYL 50 mcg/mL 1 mL Vial ONE ×3 (14:52→19:31)
[2023-07-31] MEDS ORDERED: HYDROmorphone 2 MG/ML VIAL ONE (14:55)
[2023-07-31] MEDS ORDERED: Bupivacaine PF 0.5% 30 ML VIAL ONE (15:03)
[2023-07-31] MEDS ORDERED: Bacitracin Zinc Ointment 30 gm TUBE ONE (15:03)
[2023-07-31] MEDS ORDERED: Thrombin 5000 UNITS/5 ML VIAL ONE (15:03)
[2023-07-31] MEDS ORDERED: Ondansetron PF 4 MG/2 ML Vial ONE (15:28)
[2023-07-31] MEDS ORDERED: PROPOFOL 200 MG/20 ML VIAL ONE (15:28)
[2023-07-31] MEDS ORDERED: Lidocaine 1% PF 5 ML VIAL ONE (15:28)
[2023-07-31] MEDS ORDERED: Meperidine HCl/PF 25 MG/ML VIAL IM PRN (15:48)
[2023-07-31] MEDS ORDERED: Pramipexole Di-HCl 0.25 MG TAB PO SCH (16:45)
[2023-07-31] MEDS ORDERED: HYDROmorphone 2 MG/ML VIAL SLOW IVP PRN (18:12)
[2023-07-31] MEDS ORDERED: Ondansetron HCl/PF 4 MG/2 ML Vial IVP PRN (18:12)
[2023-07-31] MEDS ORDERED: Promethazine HCl 25 MG/ML VIAL IM PRN (18:12)
[2023-07-31] MEDS: Ipratropium/Albuterol 3 ML NEB NEB SCH ×2 (19:34→22:17)
[2023-07-31] MEDS ORDERED: DAPTOmycin 500 MG VIAL IVPB SCH (21:00)
[2023-07-31] MEDS: Pramipexole Di-HCl 0.25 MG TAB PO SCH (21:52)
[2023-07-31] MEDS: Amitriptyline HCl 25 MG TAB PO SCH (21:53)
[2023-07-31] MEDS: Acetaminophen 500 MG TAB PO SCH (21:54)
[2023-07-31] MEDS: DAPTOmycin 400 MG in Sodium Chloride 0.9% 50 ML IVPB SCH (21:57)
[2023-07-31] MEDS: HYDROcodone/Acetaminophen 7.5/325 mg Tablet PO PRN (22:18)
[2023-08-01] MEDS: Ipratropium Bromide 2.5 ml Neb NEB SCH (01:01)
[2023-08-01] MEDS: HYDROcodone/Acetaminophen 7.5/325 mg Tablet PO PRN ×5 (02:02→21:57)
[2023-08-01] MEDS: Cefepime 2 GM in Sodium Chloride 0.9% 100 ML IVPB SCH ×3 (02:02→18:09)
[2023-08-01] MEDS: Ipratropium/Albuterol 3 ML NEB NEB SCH ×6 (03:31→23:51)
[2023-08-01] MEDS ORDERED: Fluconazole 100 MG TAB PO SCH (09:00)
[2023-08-01] MEDS: Fluconazole 100 MG TAB PO SCH (09:56)
[2023-08-01] MEDS: Senokot S 8.6-50 MG TAB PO SCH ×2 (09:56→21:59)
[2023-08-01] MEDS: Furosemide 20 MG TAB PO SCH (09:57)
[2023-08-01] MEDS: Pramipexole Di-HCl 0.25 MG TAB PO SCH ×2 (09:57→14:23)
[2023-08-01] MEDS: Acetaminophen 500 MG TAB PO SCH ×3 (09:57→21:56)
[2023-08-01] MEDS: tiZANidine HCl 4 MG TAB PO SCH ×3 (09:57→21:58)
[2023-08-01] MEDS: Aspirin 81 mg Enteric Coated Tablet PO SCH ×2 (09:57→21:58)
[2023-08-01] MEDS: Pregabalin 50 MG CAP PO SCH ×3 (09:57→21:58)
[2023-08-01] MEDS: Ascorbic Acid 500 mg Chewable Tablet PO SCH ×2 (09:57→21:58)
[2023-08-01] MEDS: Polyethylene Glycol 3350 17 GM Packet PO SCH ×2 (09:58→22:02)
[2023-08-01] MEDS: Meperidine HCl/PF 25 MG/ML VIAL IM SCH (11:09)
[2023-08-01] MEDS: Promethazine HCl 25 MG/ML VIAL IM SCH (11:09)
[2023-08-01] MEDS: HYDROmorphone 2 MG TAB PO PRN ×2 (11:32→18:39)
[2023-08-01 14:15] LABS: Fungus Stain Final report (.)
[2023-08-01 15:15] LABS: Hematocrit 27.1 % (36.0-47.0); Hemoglobin 8.1 g/dL (12.0-16.0); Manual Diff?? YES; Mean Corpuscular HGB CONC 29.9 g/dL (32.0-36.0); Mean Corpuscular Hemoglobin 25.7 pg (27.0-31.0); Mean Platelet Volume 10.2 fL (7.4-10.4); Platelet Count 409 10x3/uL (130-400); RBC Distribution Width 19.3 % (11.5-14.5); Red Blood Cell (RBC) Count 3.15 mill/uL (4.20-5.40); White Blood Cell (WBC) Count 15.2 10x3/uL (4.8-10.8)
[2023-08-01 15:16] LABS: Delete Auto Diff?? YES
[2023-08-01 15:36] LABS: Anion Gap 8 mmol/L (10-20); BUN (Urea Nitrogen) 15 mg/dL (9.8-20.1); Calc. Creatinine Clearance 107 mL/min (70-130); Calcium 9.8 mg/dL (7.8-10.44); Carbon Dioxide 30 mmol/L (22-29); Chloride 103 mmol/L (98-107); Estimated GFR 104; Glucose 121 mg/dL (70-105); Potassium 3.6 mmol/L (3.5-5.1); Sodium 137 mmol/L (136-145)
[2023-08-01 15:54] LABS: Anisocytosis SLIGHT = 6-15 cells HPF (0-5); Band 7 % (5-11); Burr Cells SLIGHT = 2-5 cells HPF (0-1); CellaVision Operator ID LAB.MJL; Eosinophils 39 % (0-10); Hypochromia SLIGHT = 6-15 cells HPF (0-5); Large Platelets 3.2 % (0-5); Lymphocytes 6 % (21-51); Monocytes 5 % (0-10); Neutrophil 43 % (42-75); Ovalocytes SLIGHT = 2-5 cells HPF (0-1); Platelet Adequacy Comment Platelets Increased; Polychromasia MODERATE = 3-4 cells HPF (0-2); Total Cell Count 93
[2023-08-01] MEDS: DAPTOmycin 400 MG in Sodium Chloride 0.9% 50 ML IVPB SCH (18:09)
[2023-08-01] MEDS: Amitriptyline HCl 25 MG TAB PO SCH (21:59)
[2023-08-01] MEDS: Pramipexole Di-HCl 1 MG TAB PO SCH (22:01)
[2023-08-02] MEDS: Cefepime 2 GM in Sodium Chloride 0.9% 100 ML IVPB SCH ×3 (02:57→17:28)
[2023-08-02] MEDS: HYDROmorphone 2 MG TAB PO PRN ×4 (03:03→21:42)
[2023-08-02 05:23] LABS: Hematocrit 27.7 % (36.0-47.0); Hemoglobin 8.3 g/dL (12.0-16.0); Manual Diff?? YES; Mean Corpuscular Hemoglobin 25.9 pg (27.0-31.0); Mean Corpuscular Volume 86.3 fl (78.0-98.0); Mean Platelet Volume 9.9 fL (7.4-10.4); Platelet Count 396 10x3/uL (130-400); RBC Distribution Width 19.4 % (11.5-14.5); Red Blood Cell (RBC) Count 3.21 mill/uL (4.20-5.40); White Blood Cell (WBC) Count 15.7 10x3/uL (4.8-10.8)
[2023-08-02 05:24] LABS: Delete Auto Diff?? YES
[2023-08-02] MEDS: HYDROcodone/Acetaminophen 7.5/325 mg Tablet PO PRN ×3 (05:31→18:54)
[2023-08-02 05:43] LABS: Anion Gap 11 mmol/L (10-20); BUN (Urea Nitrogen) 13 mg/dL (9.8-20.1); Calc. Creatinine Clearance 104 mL/min (70-130); Calcium 10.2 mg/dL (7.8-10.44); Carbon Dioxide 28 mmol/L (22-29); Chloride 104 mmol/L (98-107); Estimated GFR 103; Glucose 97 mg/dL (70-105); Potassium 3.5 mmol/L (3.5-5.1); Sodium 139 mmol/L (136-145)
[2023-08-02 05:45] LABS: Band 1 % (5-11); CellaVision Operator ID LAB.CLH1; Eosinophils 45 % (0-10); Hypochromia SLIGHT = 6-15 cells HPF (0-5); Large Platelets 1.9 % (0-5); Lymphocytes 12 % (21-51); Macrocytosis SLIGHT = 6-15 cells HPF (0-5); Neutrophil 38 % (42-75); Platelet Adequacy Comment Platelets Normal; Reactive Lymphocytes 1 % (0-10); Total Cell Count 106
[2023-08-02] MEDS: Ipratropium/Albuterol 3 ML NEB NEB SCH ×2 (06:20→12:09)
[2023-08-02] MEDS: Fluconazole 100 MG TAB PO SCH (08:57)
[2023-08-02] MEDS: Pregabalin 50 MG CAP PO SCH ×3 (08:57→20:58)
[2023-08-02] MEDS: tiZANidine HCl 4 MG TAB PO SCH ×3 (08:57→20:57)
[2023-08-02] MEDS: Aspirin 81 mg Enteric Coated Tablet PO SCH ×2 (08:57→20:57)
[2023-08-02] MEDS: Pramipexole Di-HCl 0.25 MG TAB PO SCH ×2 (08:57→20:58)
[2023-08-02] MEDS: Furosemide 20 MG TAB PO SCH (08:58)
[2023-08-02] MEDS: Ascorbic Acid 500 mg Chewable Tablet PO SCH ×2 (08:58→21:00)
[2023-08-02] MEDS: Senokot S 8.6-50 MG TAB PO SCH ×2 (08:58→20:58)
[2023-08-02] MEDS: Acetaminophen 500 MG TAB PO SCH ×3 (08:58→20:56)
[2023-08-02] MEDS: Meperidine HCl/PF 25 MG/ML VIAL IM SCH (08:59)
[2023-08-02] MEDS: Polyethylene Glycol 3350 17 GM Packet PO SCH ×2 (08:59→21:03)
[2023-08-02] MEDS: Promethazine HCl 25 MG/ML VIAL IM SCH (08:59)
[2023-08-02] MEDS ORDERED: Linezolid 600 MG TAB PO SCH (15:45)
[2023-08-02 19:22] LABS: SARS-CoV-2 NAA Rapid Test Not Detected (NotDetected)
[2023-08-02] MEDS: Pramipexole Di-HCl 1 MG TAB PO SCH (20:59)
[2023-08-02] MEDS: Linezolid 600 MG TAB PO SCH (21:00)
[2023-08-02] MEDS: Amitriptyline HCl 25 MG TAB PO SCH (21:00)
[2023-08-03] MEDS: HYDROcodone/Acetaminophen 7.5/325 mg Tablet PO PRN ×2 (00:54→09:58)
[2023-08-03] MEDS: Cefepime 2 GM in Sodium Chloride 0.9% 100 ML IVPB SCH ×3 (00:57→19:04)
[2023-08-03] MEDS: HYDROmorphone 2 MG TAB PO PRN ×2 (05:27→20:27)
[2023-08-03 06:07] LABS: Hemoglobin 8.7 g/dL (12.0-16.0); Manual Diff?? YES; Mean Corpuscular Hemoglobin 25.7 pg (27.0-31.0); Mean Corpuscular Volume 85.5 fl (78.0-98.0); Mean Platelet Volume 9.9 fL (7.4-10.4); Platelet Count 389 10x3/uL (130-400); RBC Distribution Width 19.2 % (11.5-14.5); Red Blood Cell (RBC) Count 3.39 mill/uL (4.20-5.40); White Blood Cell (WBC) Count 16.1 10x3/uL (4.8-10.8)
[2023-08-03 06:10] LABS: Delete Auto Diff?? YES
[2023-08-03 06:30] LABS: Band 3 % (5-11); CellaVision Operator ID LAB.CLH1; Eosinophils 42 % (0-10); Hypochromia SLIGHT = 6-15 cells HPF (0-5); Large Platelets 0.9 % (0-5); Lymphocytes 18 % (21-51); Metamyelocyte 1 % (0-0); Monocytes 3 % (0-10); Neutrophil 30 % (42-75); Platelet Adequacy Comment Platelets Normal; Polychromasia SLIGHT = 2-3 cells HPF (0-2); Reactive Lymphocytes 1 % (0-10); Total Cell Count 110
[2023-08-03 06:34] LABS: ALT (SGPT) 10 U/L (8-55); AST (SGOT) 14 U/L (5-34); Albumin 2.7 g/dL (3.5-5.0); Alkaline Phosphatase 99 U/L (40-110); Anion Gap 10 mmol/L (10-20); BUN (Urea Nitrogen) 13 mg/dL (9.8-20.1); Bilirubin, Total 0.2 mg/dL (0.2-1.2); Calc. Creatinine Clearance 110 mL/min (70-130); Calcium 10.6 mg/dL (7.8-10.44); Carbon Dioxide 28 mmol/L (22-29); Chloride 102 mmol/L (98-107); Estimated GFR 105; Globulin 4.3 g/dL (2.4-3.5); Glucose 97 mg/dL (70-105); Potassium 3.9 mmol/L (3.5-5.1); Sodium 136 mmol/L (136-145)
[2023-08-03] MEDS: Ipratropium/Albuterol 3 ML NEB NEB PRN (07:35)
[2023-08-03] MEDS: Aspirin 81 mg Enteric Coated Tablet PO SCH ×2 (09:51→20:09)
[2023-08-03] MEDS: Ascorbic Acid 500 mg Chewable Tablet PO SCH ×2 (09:51→20:08)
[2023-08-03] MEDS: Fluconazole 100 MG TAB PO SCH (10:00)
[2023-08-03] MEDS: Furosemide 20 MG TAB PO SCH (10:00)
[2023-08-03] MEDS: Pramipexole Di-HCl 0.25 MG TAB PO SCH ×2 (10:01→20:11)
[2023-08-03] MEDS: Acetaminophen 500 MG TAB PO SCH ×3 (10:01→20:06)
[2023-08-03] MEDS: Pregabalin 50 MG CAP PO SCH ×3 (10:01→20:09)
[2023-08-03] MEDS: Polyethylene Glycol 3350 17 GM Packet PO SCH ×2 (10:10→20:13)
[2023-08-03] MEDS: Meperidine HCl/PF 25 MG/ML VIAL IM SCH (10:10)
[2023-08-03] MEDS: Promethazine HCl 25 MG/ML VIAL IM SCH (10:11)
[2023-08-03] MEDS: Senokot S 8.6-50 MG TAB PO SCH ×2 (10:11→20:12)
[2023-08-03] MEDS: tiZANidine HCl 4 MG TAB PO SCH ×3 (10:12→20:09)
[2023-08-03] MEDS: Sodium Chloride 0.9% 1,000 ML IV SCH ×2 (10:12→19:04)
[2023-08-03] MEDS: Ipratropium/Albuterol 3 ML NEB NEB SCH ×2 (13:49→21:42)
[2023-08-03] MEDS: Linezolid 600 MG TAB PO SCH ×2 (14:34→20:13)
[2023-08-03] MEDS ORDERED: fentaNYL PF 100 MCG/2 ML SYRINGE ONE (16:08)
[2023-08-03] MEDS ORDERED: PROPOFOL 200 MG/20 ML VIAL ONE (16:53)
[2023-08-03] MEDS ORDERED: Ondansetron PF 4 MG/2 ML Vial ONE (16:53)
[2023-08-03] MEDS ORDERED: Ondansetron HCl/PF 4 MG/2 ML Vial IVP PRN (17:22)
[2023-08-03] MEDS ORDERED: Promethazine HCl 25 MG/ML VIAL IM PRN (17:22)
[2023-08-03] MEDS ORDERED: Bacitracin Zinc Ointment 30 gm TUBE ONE (18:01)
[2023-08-03] MEDS ORDERED: fentaNYL 50 mcg/mL 1 mL Vial ONE ×3 (18:42→19:32)
[2023-08-03] MEDS: Amitriptyline HCl 25 MG TAB PO SCH (20:11)
[2023-08-03] MEDS: Pramipexole Di-HCl 1 MG TAB PO SCH (20:13)
[2023-08-04] MEDS: Ipratropium/Albuterol 3 ML NEB NEB SCH ×5 (00:48→23:49)
[2023-08-04] MEDS: Cefepime 2 GM in Sodium Chloride 0.9% 100 ML IVPB SCH ×3 (00:59→16:55)
[2023-08-04] MEDS: HYDROcodone/Acetaminophen 7.5/325 mg Tablet PO PRN ×5 (00:59→21:54)
[2023-08-04] MEDS: HYDROmorphone 2 MG TAB PO PRN ×4 (02:10→23:50)
[2023-08-04 05:21] LABS: Hematocrit 28.9 % (36.0-47.0); Hemoglobin 8.9 g/dL (12.0-16.0); Manual Diff?? YES; Mean Corpuscular HGB CONC 30.8 g/dL (32.0-36.0); Mean Corpuscular Hemoglobin 26.4 pg (27.0-31.0); Mean Corpuscular Volume 85.8 fl (78.0-98.0); Platelet Count 384 10x3/uL (130-400); RBC Distribution Width 18.9 % (11.5-14.5); Red Blood Cell (RBC) Count 3.37 mill/uL (4.20-5.40); White Blood Cell (WBC) Count 13.6 10x3/uL (4.8-10.8)
[2023-08-04 05:22] LABS: Delete Auto Diff?? YES
[2023-08-04 05:43] LABS: Band 3 % (5-11); CellaVision Operator ID LAB.CLH1; Eosinophils 62 % (0-10); Hypochromia SLIGHT = 6-15 cells HPF (0-5); Lymphocytes 11 % (21-51); Monocytes 2 % (0-10); Neutrophil 22 % (42-75); Platelet Adequacy Comment Platelets Normal; Polychromasia SLIGHT = 2-3 cells HPF (0-2); Total Cell Count 102
[2023-08-04 05:57] LABS: ALT (SGPT) 10 U/L (8-55); AST (SGOT) 12 U/L (5-34); Albumin 2.8 g/dL (3.5-5.0); Alkaline Phosphatase 102 U/L (40-110); Anion Gap 13 mmol/L (10-20); BUN (Urea Nitrogen) 14 mg/dL (9.8-20.1); Bilirubin, Total 0.2 mg/dL (0.2-1.2); Calc. Creatinine Clearance 101 mL/min (70-130); Calcium 10.9 mg/dL (7.8-10.44); Carbon Dioxide 27 mmol/L (22-29); Chloride 101 mmol/L (98-107); Estimated GFR 103; Globulin 4.2 g/dL (2.4-3.5); Glucose 98 mg/dL (70-105); Potassium 3.7 mmol/L (3.5-5.1); Sodium 137 mmol/L (136-145)
[2023-08-04] MEDS: Meperidine HCl/PF 25 MG/ML VIAL IM SCH (07:50)
[2023-08-04] MEDS: Promethazine HCl 25 MG/ML VIAL IM SCH (07:51)
[2023-08-04] MEDS: Pregabalin 50 MG CAP PO SCH ×3 (09:57→21:46)
[2023-08-04] MEDS: Ascorbic Acid 500 mg Chewable Tablet PO SCH ×2 (09:57→21:47)
[2023-08-04] MEDS: Fluconazole 100 MG TAB PO SCH (09:58)
[2023-08-04] MEDS: Aspirin 81 mg Enteric Coated Tablet PO SCH ×2 (09:59→21:44)
[2023-08-04] MEDS: Furosemide 20 MG TAB PO SCH (09:59)
[2023-08-04] MEDS: Pramipexole Di-HCl 0.25 MG TAB PO SCH ×2 (09:59→21:44)
[2023-08-04] MEDS: Senokot S 8.6-50 MG TAB PO SCH ×2 (10:00→21:46)
[2023-08-04] MEDS: tiZANidine HCl 4 MG TAB PO SCH ×3 (10:00→21:44)
[2023-08-04] MEDS: Linezolid 600 MG TAB PO SCH ×2 (10:03→21:47)
[2023-08-04] MEDS: Polyethylene Glycol 3350 17 GM Packet PO SCH ×2 (10:03→21:55)
[2023-08-04] MEDS: Sodium Chloride 0.9% 1,000 ML IV SCH ×2 (10:13→22:06)
[2023-08-04] MEDS: Acetaminophen 500 MG TAB PO SCH ×3 (10:16→21:45)
[2023-08-04] MEDS ORDERED: Meperidine HCl/PF 25 MG/ML VIAL IM PRN (12:56)
[2023-08-04] MEDS: Ondansetron PF 4 MG/2 ML Vial IVP PRN (19:02)
[2023-08-04] MEDS: Amitriptyline HCl 25 MG TAB PO SCH (21:46)
[2023-08-04] MEDS: Pramipexole Di-HCl 1 MG TAB PO SCH (21:47)
[2023-08-04] MEDS ORDERED: Mometasone 100 MCG/Formoterol 5 MCG 120 PUFF INHALER INH PRN (23:49)
[2023-08-05] MEDS: Cefepime 2 GM in Sodium Chloride 0.9% 100 ML IVPB SCH ×3 (01:22→17:25)
[2023-08-05 05:35] LABS: Anion Gap 9 mmol/L (10-20); BUN (Urea Nitrogen) 12 mg/dL (9.8-20.1); Calc. Creatinine Clearance 98 mL/min (70-130); Carbon Dioxide 30 mmol/L (22-29); Chloride 104 mmol/L (98-107); Estimated GFR 99; Potassium 3.7 mmol/L (3.5-5.1); Sodium 139 mmol/L (136-145)
[2023-08-05 05:36] LABS: ALT (SGPT) 10 U/L (8-55); AST (SGOT) 14 U/L (5-34); Albumin 2.7 g/dL (3.5-5.0); Alkaline Phosphatase 99 U/L (40-110); Bilirubin, Total Less than 0.2 mg/dL (0.2-1.2); Calcium 10.7 mg/dL (7.8-10.44); Globulin 4.1 g/dL (2.4-3.5); Glucose 102 mg/dL (70-105); Protein, Total 6.8 g/dL (6.0-8.3)
[2023-08-05] MEDS: HYDROcodone/Acetaminophen 7.5/325 mg Tablet PO PRN ×4 (05:40→23:19)
[2023-08-05] MEDS: Albuterol 200 PUFF (6.7GM INHALER) INH PRN (06:03)
[2023-08-05] MEDS: Ipratropium/Albuterol 3 ML NEB NEB SCH ×4 (06:37→23:16)
[2023-08-05] MEDS: Sodium Chloride 0.9% 1,000 ML IV SCH ×3 (07:55→19:16)
[2023-08-05] MEDS: Fluconazole 100 MG TAB PO SCH (09:35)
[2023-08-05] MEDS: Ascorbic Acid 500 mg Chewable Tablet PO SCH ×2 (09:35→20:15)
[2023-08-05] MEDS: Acetaminophen 500 MG TAB PO SCH ×3 (09:35→20:15)
[2023-08-05] MEDS: tiZANidine HCl 4 MG TAB PO SCH ×3 (09:35→20:15)
[2023-08-05] MEDS: Senokot S 8.6-50 MG TAB PO SCH ×2 (09:36→20:16)
[2023-08-05] MEDS: Promethazine HCl 25 MG/ML VIAL IM SCH (09:36)
[2023-08-05] MEDS: Linezolid 600 MG TAB PO SCH ×2 (09:36→20:17)
[2023-08-05] MEDS: Furosemide 20 MG TAB PO SCH (09:36)
[2023-08-05] MEDS: Pregabalin 50 MG CAP PO SCH ×3 (09:36→20:16)
[2023-08-05] MEDS: Aspirin 81 mg Enteric Coated Tablet PO SCH ×2 (09:36→20:15)
[2023-08-05] MEDS: Polyethylene Glycol 3350 17 GM Packet PO SCH ×2 (09:38→20:27)
[2023-08-05] MEDS: Meperidine HCl/PF 25 MG/ML VIAL IM SCH (09:40)
[2023-08-05 13:57] LABS: Hematocrit 28.5 % (36.0-47.0); Hemoglobin 8.6 g/dL (12.0-16.0); Manual Diff?? YES; Mean Corpuscular HGB CONC 30.2 g/dL (32.0-36.0); Mean Corpuscular Hemoglobin 25.6 pg (27.0-31.0); Mean Corpuscular Volume 84.8 fl (78.0-98.0); Mean Platelet Volume 9.8 fL (7.4-10.4); Platelet Count 345 10x3/uL (130-400); RBC Distribution Width 18.6 % (11.5-14.5); Red Blood Cell (RBC) Count 3.36 mill/uL (4.20-5.40); White Blood Cell (WBC) Count 15.2 10x3/uL (4.8-10.8)
[2023-08-05 13:58] LABS: Delete Auto Diff?? YES
[2023-08-05 14:33] LABS: Anisocytosis SLIGHT = 6-15 cells HPF (0-5); CellaVision Operator ID LAB.MJL; Eosinophils 53 % (0-10); Hypochromia SLIGHT = 6-15 cells HPF (0-5); Large Platelets 1.1 % (0-5); Lymphocytes 16 % (21-51); Monocytes 3 % (0-10); Neutrophil 26 % (42-75); Platelet Adequacy Comment Platelets Normal; Polychromasia SLIGHT = 2-3 cells HPF (0-2); Reactive Lymphocytes 2 % (0-10); Total Cell Count 90
[2023-08-05] MEDS ORDERED: Pramipexole Di-HCl 1 MG TAB PO SCH (16:15)
[2023-08-05] MEDS: Sodium Chloride 0.65% Nasal 44 ML BOT EA NARE PRN (18:33)
[2023-08-05] MEDS: Ondansetron PF 4 MG/2 ML Vial IVP PRN (20:14)
[2023-08-05] MEDS: Amitriptyline HCl 25 MG TAB PO SCH (20:14)
[2023-08-05] MEDS: Pramipexole Di-HCl 1 MG TAB PO SCH (20:17)
[2023-08-05] MEDS: HYDROmorphone 2 MG TAB PO PRN (20:25)
[2023-08-06] MEDS: Cefepime 2 GM in Sodium Chloride 0.9% 100 ML IVPB SCH ×2 (02:00→09:27)
[2023-08-06] MEDS: HYDROmorphone 2 MG TAB PO PRN ×3 (02:00→20:15)
[2023-08-06] MEDS: Sodium Chloride 0.9% 1,000 ML IV SCH ×3 (02:05→16:45)
[2023-08-06] MEDS: HYDROcodone/Acetaminophen 7.5/325 mg Tablet PO PRN ×3 (05:42→17:05)
[2023-08-06 05:48] LABS: Hematocrit 28.9 % (36.0-47.0); Hemoglobin 8.6 g/dL (12.0-16.0); Manual Diff?? YES; Mean Corpuscular HGB CONC 29.8 g/dL (32.0-36.0); Mean Corpuscular Hemoglobin 25.9 pg (27.0-31.0); Mean Platelet Volume 9.8 fL (7.4-10.4); Platelet Count 318 10x3/uL (130-400); RBC Distribution Width 18.7 % (11.5-14.5); Red Blood Cell (RBC) Count 3.32 mill/uL (4.20-5.40); White Blood Cell (WBC) Count 14.5 10x3/uL (4.8-10.8)
[2023-08-06 05:51] LABS: Delete Auto Diff?? YES
[2023-08-06 06:14] LABS: ALT (SGPT) 9 U/L (8-55); AST (SGOT) 13 U/L (5-34); Albumin 2.7 g/dL (3.5-5.0); Alkaline Phosphatase 109 U/L (40-110); Anion Gap 11 mmol/L (10-20); BUN (Urea Nitrogen) 11 mg/dL (9.8-20.1); Bilirubin, Total Less than 0.2 mg/dL (0.2-1.2); Calc. Creatinine Clearance 105 mL/min (70-130); Calcium 10.6 mg/dL (7.8-10.44); Carbon Dioxide 26 mmol/L (22-29); Chloride 105 mmol/L (98-107); Estimated GFR 104; Glucose 96 mg/dL (70-105); Potassium 3.7 mmol/L (3.5-5.1); Protein, Total 6.7 g/dL (6.0-8.3); Sodium 138 mmol/L (136-145)
[2023-08-06 06:16] LABS: Band 1 % (5-11); CellaVision Operator ID LAB.CLH1; Eosinophils 56 % (0-10); Hypochromia SLIGHT = 6-15 cells HPF (0-5); Lymphocytes 19 % (21-51); Metamyelocyte 1 % (0-0); Monocytes 2 % (0-10); Neutrophil 19 % (42-75); Platelet Adequacy Comment Platelets Normal; Polychromasia SLIGHT = 2-3 cells HPF (0-2); Total Cell Count 103
[2023-08-06] MEDS: Ipratropium/Albuterol 3 ML NEB NEB SCH ×3 (06:26→19:12)
[2023-08-06] MEDS: Ascorbic Acid 500 mg Chewable Tablet PO SCH ×2 (09:25→20:13)
[2023-08-06] MEDS: Pramipexole Di-HCl 1 MG TAB PO SCH ×3 (09:25→20:15)
[2023-08-06] MEDS: Linezolid 600 MG TAB PO SCH ×2 (09:25→20:15)
[2023-08-06] MEDS: Aspirin 81 mg Enteric Coated Tablet PO SCH ×2 (09:25→20:13)
[2023-08-06] MEDS: Pregabalin 50 MG CAP PO SCH ×3 (09:25→20:14)
[2023-08-06] MEDS: Furosemide 20 MG TAB PO SCH (09:25)
[2023-08-06] MEDS: Fluconazole 100 MG TAB PO SCH (09:25)
[2023-08-06] MEDS: tiZANidine HCl 4 MG TAB PO SCH ×3 (09:25→20:14)
[2023-08-06] MEDS: Polyethylene Glycol 3350 17 GM Packet PO SCH ×2 (09:26→20:15)
[2023-08-06] MEDS: Meperidine HCl/PF 25 MG/ML VIAL IM SCH (09:26)
[2023-08-06] MEDS: Acetaminophen 500 MG TAB PO SCH ×3 (09:26→20:16)
[2023-08-06] MEDS: Senokot S 8.6-50 MG TAB PO SCH ×2 (09:27→20:13)
[2023-08-06] MEDS: Promethazine HCl 25 MG/ML VIAL IM SCH (09:27)
[2023-08-06] MEDS: Albuterol 200 PUFF (6.7GM INHALER) INH PRN (09:27)
[2023-08-06] MEDS: Sodium Chloride 0.65% Nasal 44 ML BOT EA NARE PRN (11:57)
[2023-08-06] MEDS ORDERED: Furosemide 40 MG/4 ML VIAL SLOW IVP SCH (16:45)
[2023-08-06] MEDS ORDERED: HYDROmorphone 2 MG TAB ONE (20:08)
[2023-08-06] MEDS: Ciprofloxacin 500 MG TAB PO SCH (20:14)
[2023-08-06] MEDS: Amitriptyline HCl 25 MG TAB PO SCH (20:14)
[2023-08-07] MEDS: Ipratropium/Albuterol 3 ML NEB NEB SCH ×5 (00:15→23:44)
[2023-08-07 01:24] LABS: Troponin I Less than 0.010 ng/mL (< 0.028)
[2023-08-07] MEDS: Sodium Chloride 0.9% 1,000 ML IV SCH (01:25)
[2023-08-07] MEDS: HYDROcodone/Acetaminophen 7.5/325 mg Tablet PO PRN (01:26)
[2023-08-07 02:36] LABS: Magnesium 1.4 mg/dL (1.6-2.6)
[2023-08-07] MEDS: HYDROmorphone 2 MG TAB PO PRN ×3 (04:48→18:38)
[2023-08-07] MEDS: Ciprofloxacin 500 MG TAB PO SCH ×2 (05:29→20:20)
[2023-08-07 06:35] LABS: ALT (SGPT) 10 U/L (8-55); AST (SGOT) 15 U/L (5-34); Albumin 3.1 g/dL (3.5-5.0); Alkaline Phosphatase 121 U/L (40-110); Anion Gap 10 mmol/L (10-20); BUN (Urea Nitrogen) 11 mg/dL (9.8-20.1); Bilirubin, Total Less than 0.2 mg/dL (0.2-1.2); Calc. Creatinine Clearance 99 mL/min (70-130); Calcium 11.5 mg/dL (7.8-10.44); Carbon Dioxide 32 mmol/L (22-29); Chloride 97 mmol/L (98-107); Estimated GFR 101; Globulin 4.6 g/dL (2.4-3.5); Glucose 123 mg/dL (70-105); Potassium 3.1 mmol/L (3.5-5.1); Protein, Total 7.7 g/dL (6.0-8.3); Sodium 136 mmol/L (136-145)
[2023-08-07] MEDS: Acetaminophen 500 MG TAB PO SCH ×3 (08:47→20:25)
[2023-08-07] MEDS: Senokot S 8.6-50 MG TAB PO SCH ×2 (08:47→20:21)
[2023-08-07] MEDS: Furosemide 20 MG TAB PO SCH (08:48)
[2023-08-07] MEDS: Ascorbic Acid 500 mg Chewable Tablet PO SCH ×2 (08:48→20:24)
[2023-08-07] MEDS: tiZANidine HCl 4 MG TAB PO SCH ×3 (08:48→20:21)
[2023-08-07] MEDS: Aspirin 81 mg Enteric Coated Tablet PO SCH ×2 (08:48→20:20)
[2023-08-07] MEDS: Fluconazole 100 MG TAB PO SCH (08:48)
[2023-08-07] MEDS: Linezolid 600 MG TAB PO SCH ×2 (08:49→20:22)
[2023-08-07] MEDS: Pregabalin 50 MG CAP PO SCH ×3 (08:49→20:21)
[2023-08-07] MEDS: Polyethylene Glycol 3350 17 GM Packet PO SCH ×2 (08:50→20:24)
[2023-08-07] MEDS: Pramipexole Di-HCl 1 MG TAB PO SCH ×3 (08:50→20:24)
[2023-08-07] MEDS ORDERED: methylPREDNISolone Sod Succ 40 MG VIAL IVP SCH (09:00)
[2023-08-07] MEDS ORDERED: Potassium Chloride 20 MEQ TAB PO SCH (09:15)
[2023-08-07] MEDS: Meperidine HCl/PF 25 MG/ML VIAL IM SCH (10:50)
[2023-08-07] MEDS: Albuterol 200 PUFF (6.7GM INHALER) INH PRN (10:50)
[2023-08-07] MEDS: Promethazine HCl 25 MG/ML VIAL IM SCH (10:51)
[2023-08-07] MEDS: oxyCODONE 5 MG TAB PO PRN (20:21)
[2023-08-07] MEDS: Amitriptyline HCl 25 MG TAB PO SCH (20:21)
[2023-08-08] MEDS: HYDROmorphone 2 MG TAB PO PRN ×2 (04:00→15:50)
[2023-08-08] MEDS ORDERED: Ipratropium Bromide 2.5 ml Neb ONE (04:14)
[2023-08-08] MEDS: Ipratropium/Albuterol 3 ML NEB NEB SCH ×2 (04:17→13:10)
[2023-08-08 04:33] LABS: #Basophils 0.1 thou/uL (0.0-0.2); #Neutrophils 3.8 thou/uL (1.40-6.50); %Basophils 1.3 % (0.0-1.0); %Eosinophils 11.4 % (0.0-10.0); %Lymphocytes 31.5 % (21.0-51.0); %Monocytes 11.7 % (0.0-10.0); %Neutrophils 43.8 % (42.0-75.0); Hematocrit 29.8 % (36.0-47.0); Hemoglobin 9.1 g/dL (12.0-16.0); Mean Corpuscular HGB CONC 30.5 g/dL (32.0-36.0); Mean Corpuscular Hemoglobin 25.9 pg (27.0-31.0); Mean Corpuscular Volume 84.7 fl (78.0-98.0); Mean Platelet Volume 10.3 fL (7.4-10.4); Platelet Count 336 10x3/uL (130-400); RBC Distribution Width 18.6 % (11.5-14.5); Red Blood Cell (RBC) Count 3.52 mill/uL (4.20-5.40); White Blood Cell (WBC) Count 8.8 10x3/uL (4.8-10.8)
[2023-08-08 05:06] LABS: ALT (SGPT) 12 U/L (8-55); AST (SGOT) 16 U/L (5-34); Albumin 3.2 g/dL (3.5-5.0); Alkaline Phosphatase 118 U/L (40-110); Anion Gap 13 mmol/L (10-20); BUN (Urea Nitrogen) 17 mg/dL (9.8-20.1); Bilirubin, Total Less than 0.2 mg/dL (0.2-1.2); Calc. Creatinine Clearance 107 mL/min (70-130); Carbon Dioxide 30 mmol/L (22-29); Chloride 99 mmol/L (98-107); Estimated GFR 104; Globulin 4.7 g/dL (2.4-3.5); Glucose 100 mg/dL (70-105); Potassium 3.8 mmol/L (3.5-5.1); Protein, Total 7.9 g/dL (6.0-8.3); Sodium 138 mmol/L (136-145)
[2023-08-08] MEDS: Ciprofloxacin 500 MG TAB PO SCH (05:28)
[2023-08-08] MEDS ORDERED: predniSONE 50 MG TAB PO SCH (08:00)
[2023-08-08] MEDS: Fluconazole 100 MG TAB PO SCH (08:27)
[2023-08-08] MEDS: Aspirin 81 mg Enteric Coated Tablet PO SCH (08:27)
[2023-08-08] MEDS: Polyethylene Glycol 3350 17 GM Packet PO SCH ×2 (08:27→08:32)
[2023-08-08] MEDS: Ascorbic Acid 500 mg Chewable Tablet PO SCH (08:27)
[2023-08-08] MEDS: tiZANidine HCl 4 MG TAB PO SCH ×2 (08:27→15:13)
[2023-08-08] MEDS: Furosemide 20 MG TAB PO SCH (08:27)
[2023-08-08] MEDS: Senokot S 8.6-50 MG TAB PO SCH (08:27)
[2023-08-08] MEDS: Pramipexole Di-HCl 1 MG TAB PO SCH ×2 (08:28→15:14)
[2023-08-08] MEDS: Linezolid 600 MG TAB PO SCH (08:28)
[2023-08-08] MEDS: Acetaminophen 500 MG TAB PO SCH ×2 (08:28→15:14)
[2023-08-08] MEDS: Pregabalin 50 MG CAP PO SCH ×2 (08:29→15:14)
[2023-08-08] MEDS: Promethazine HCl 25 MG/ML VIAL IM SCH (08:30)
[2023-08-08] MEDS: oxyCODONE 5 MG TAB PO PRN (12:34)
[2023-08-08 12:53] VITALS: TEMP 98.4
[2023-08-08] MEDS: Ondansetron PF 4 MG/2 ML Vial IVP PRN (15:13)
[2023-08-08 16:50] VITALS: BP 140/81
== END 2023-08-08 16:25 | DRG 573 ==
LOC: SDC 12:27 → SURG B 18:09
PROVIDERS: ADMIT Orthopaedic Surgery Hand Surgery; ATTEND Hospitalist
PROC: 0PBF0ZZ Excision of Right Humeral Shaft, Open Approach (ICD-10-PCS; principal; 2023-07-17)
PROC: 0SBN0ZZ Excision of Left Metatarsal-Phalangeal Joint, Open Approach (ICD-10-PCS; 2023-07-17)
PROC: 0SBM0ZZ Excision of Right Metatarsal-Phalangeal Joint, Open Approach (ICD-10-PCS; 2023-07-17)
PROC: 0R9P0ZZ Drainage of Left Wrist Joint, Open Approach (ICD-10-PCS; 2023-07-17)
PROC: 3E03329 Introduction of Other Anti-infective into Peripheral Vein, Percutaneous Approach (ICD-10-PCS; 2023-07-17)
PROC: 02HV33Z Insertion of Infusion Device into Superior Vena Cava, Percutaneous Approach (ICD-10-PCS; 2023-07-18)
PROC: B518ZZA Fluoroscopy of Superior Vena Cava, Guidance (ICD-10-PCS; 2023-07-18)
PROC: 02HV33Z Insertion of Infusion Device into Superior Vena Cava, Percutaneous Approach (ICD-10-PCS; 2023-07-18)
PROC: B5181ZA Fluoroscopy of Superior Vena Cava using Low Osmolar Contrast, Guidance (ICD-10-PCS; 2023-07-18)
PROC: B548ZZA Ultrasonography of Superior Vena Cava, Guidance (ICD-10-PCS; 2023-07-18)
PROC: 3E033XZ Introduction of Vasopressor into Peripheral Vein, Percutaneous Approach (ICD-10-PCS; 2023-07-18)
PROC: 3E04329 Introduction of Other Anti-infective into Central Vein, Percutaneous Approach (ICD-10-PCS; 2023-07-18)
PROC: 0HREX74 Replacement of Left Lower Arm Skin with Autologous Tissue Substitute, Partial Thickness, External Approach (ICD-10-PCS; 2023-07-21)
PROC: 0HRGX74 Replacement of Left Hand Skin with Autologous Tissue Substitute, Partial Thickness, External Approach (ICD-10-PCS; 2023-07-21)
PROC: 0SBN0ZZ Excision of Left Metatarsal-Phalangeal Joint, Open Approach (ICD-10-PCS; 2023-07-21)
PROC: 0SBM0ZZ Excision of Right Metatarsal-Phalangeal Joint, Open Approach (ICD-10-PCS; 2023-07-21)
PROC: 0RBL0ZZ Excision of Right Elbow Joint, Open Approach (ICD-10-PCS; 2023-07-26)
PROC: 0KB Muscles, Excision (ICD-10-PCS; 2023-07-28)
PROC: 0R9 Upper Joints, Drainage (ICD-10-PCS; 2023-07-28)
PROC: 30233N1 Transfusion of Nonautologous Red Blood Cells into Peripheral Vein, Percutaneous Approach (ICD-10-PCS; 2023-07-30)
PROC: 0JBH0ZZ Excision of Left Lower Arm Subcutaneous Tissue and Fascia, Open Approach (ICD-10-PCS; 2023-07-31)
PROC: 0PB Upper Bones, Excision (ICD-10-PCS; 2023-07-31)
PROC: 0RBL0ZZ Excision of Right Elbow Joint, Open Approach (ICD-10-PCS; 2023-07-31)
PROC: 0RBL0ZZ Excision of Right Elbow Joint, Open Approach (ICD-10-PCS; 2023-08-03)
DX: L02.413 Cutaneous abscess of right upper limb (principal); A41.9 Sepsis, unspecified organism; J18.9 Pneumonia, unspecified organism; L89.154 Pressure ulcer of sacral region, stage 4; J69.0 Pneumonitis due to inhalation of food and vomit; I50.32 Chronic diastolic (congestive) heart failure; M86.8X3 Other osteomyelitis, forearm; J96.10 Chronic respiratory failure, unspecified whether with hypoxia or hypercapnia; T81.49XA Infection following a procedure, other surgical site, initial encounter; J96.11 Chronic respiratory failure with hypoxia; I96 Gangrene, not elsewhere classified; L02.414 Cutaneous abscess of left upper limb; S41.101A Unspecified open wound of right upper arm, initial encounter; S41.102A Unspecified open wound of left upper arm, initial encounter; J44.9 Chronic obstructive pulmonary disease, unspecified; G89.4 Chronic pain syndrome; F32.A Depression, unspecified; G62.9 Polyneuropathy, unspecified; M79.7 Fibromyalgia; K59.00 Constipation, unspecified; G25.81 Restless legs syndrome; I35.0 Nonrheumatic aortic (valve) stenosis; R91.1 Solitary pulmonary nodule; M25.431 Effusion, right wrist; D72.10 Eosinophilia, unspecified; S46.811A Strain of other muscles, fascia and tendons at shoulder and upper arm level, right arm, initial encounter; Z20.822 Contact with and (suspected) exposure to COVID-19; S91.301A Unspecified open wound, right foot, initial encounter; S61.502A Unspecified open wound of left wrist, initial encounter; S61.207A Unspecified open wound of left little finger without damage to nail, initial encounter; S61.002A Unspecified open wound of left thumb without damage to nail, initial encounter; S51.002A Unspecified open wound of left elbow, initial encounter; M12.9 Arthropathy, unspecified; S91.302A Unspecified open wound, left foot, initial encounter; I25.2 Old myocardial infarction; Z98.890 Other specified postprocedural states; Z88.0 Allergy status to penicillin; Z99.81 Dependence on supplemental oxygen; Z88.1 Allergy status to other antibiotic agents; Z88.8 Allergy status to other drugs, medicaments and biological substances; Z79.899 Other long term (current) drug therapy; Z82.49 Family history of ischemic heart disease and other diseases of the circulatory system; Z90.49 Acquired absence of other specified parts of digestive tract; Z90.710 Acquired absence of both cervix and uterus; Z87.891 Personal history of nicotine dependence
CPT/HCPCS: 36415; 36416; 36430; 36569; 71045; 71250; 74178; 78802; 80048; 80053; 81001; 82607; 82728; 82785; 83519; 83540; 83550; 83605; 83615; 83735; 83880; 84484; 85025; 85060; 85610; 85730; 86140; 86635; 86850; 86900; 86901; 87070; 87071; 87102; 87205; 87206; 88184; 88307; 88311; 89051; 93005; 93010; 93306; 93970; 94640; 97139; A4641; A9579; C1713; C1751; J0692; J0878; J1170; J1650; J1940; J2175; J2185; J2250; J2405; J2550; J2704; J2916; J2920; J2997; J3010; J3260; J3370; J3490; J7050; J7512; J7611; J7620; J7999; P9016; Q9967; S0020; U0002